=== PATIENT | female | born 1970 | race Caucasian/White ===

== ENCOUNTER 2023-02-08 09:51 | Outpatient (OUT) | payer MEDICARE, MEDICAID, SELFPAY ==
[2023-02-08 10:22] LABS: Basophils Absolute Auto 0.1 10^3/uL (0.0-0.1); Basophils Percent Auto 0.7 % (0.2-2.0); Eosinophils Absolute Auto 0.2 10^3/uL (0.0-0.7); Eosinophils Percent Auto 1.9 % (0.9-7.0); Hematocrit 53.9 % (36.0-48.0); Hemoglobin 18.3 g/dL (12.0-16.0); Immature Granulocytes Abs Auto 0.06 10^3/uL (0.00-0.03); Immature Granulocytes Pct Auto 0.5 % (0.0-0.5); Lymphocytes Absolute Auto 3.4 10^3/uL (1.2-3.8); Lymphocytes Percent Auto 28.3 % (20.5-60.0); Mean Corpuscular Hemoglobin 30.2 pg (26.7-34.0); Mean Corpuscular Volume 89.1 fL (81.0-99.0); Mean Platelet Volume 9.3 fL (9.5-13.5); Monocytes Absolute Auto 0.5 10^3/uL (0.3-0.8); Monocytes Percent Auto 3.9 % (1.7-12.0); Neutrophils Absolute Auto 7.9 10^3/uL (1.4-6.5); Neutrophils Percent Auto 64.7 % (43.0-75.0); Platelet Count 246 10^3/uL (150-450); Red Blood Count 6.05 10^6/uL (4.20-5.40); Red Cell Distribution Width 13.7 % (11.0-15.0); White Blood Count 12.2 10^3/uL (4.0-11.0)
[2023-02-08 10:24] LABS: Estimated Average Glucose 134 mg/dL; Glycohemoglobin A1C 6.3 % (4.5-6.2)
[2023-02-08 10:31] LABS: Bilirubin Urine NEGATIVE (NEGATIVE); Blood Urine TRACE-I (NEGATIVE); Clarity Urine CLEAR (CLEAR); Color Urine LT. YELLOW (YELLOW); Glucose Urine UA NEGATIVE (NEGATIVE); Ketones Urine NEGATIVE (NEGATIVE); Leukocyte Esterase Urine NEGATIVE (NEGATIVE); Nitrite Urine NEGATIVE (NEGATIVE); Protein Urine NEGATIVE (NEG/TRACE); Specific Gravity Urine 1.015 (1.005-1.025); Urobilinogen Urine 0.2 EU/dL (0.2-1.0); pH Urine 5.5 (5.0-9.0)
[2023-02-08 10:43] LABS: Bacteria Urine NONE SEEN #/HPF (NONE SEEN); Mucus Urine NONE SEEN (NONE SEEN); RBC Urine 0-2 #/HPF (0-2); Squamous Epithelial Cell Urine FEW #/LPF (NONE/RARE); WBC Urine NONE SEEN #/HPF (NONE SEEN)
[2023-02-08 11:03] LABS: Alanine Aminotransferase 14 U/L (14-59); Albumin Level 3.7 g/dL (3.4-5.0); Alkaline Phosphatase 102 U/L (46-116); Anion Gap 15.9; Aspartate Amino Transferase 14 U/L (15-37); BUN Creatinine Ratio 18.4; Bilirubin Total 0.3 mg/dL (0.2-1.0); Calcium 8.8 mg/dL (8.5-10.1); Carbon Dioxide 23.8 mmol/L (21.0-32.0); Chloride 106 mmol/L (98-107); Cholesterol 159 mg/dL (<=200); Estimated GFR (African America >60 (>=60); Estimated GFR (Non-African Ame >60 (>=60); Globulin 3.7 g/dL; Glucose 139 mg/dL (74-106); HDL Cholesterol 40 mg/dL (40-60); Potassium 4.7 mmol/L (3.5-5.1); Sodium 141 mmol/L (136-145); Total Protein 7.4 g/dL (6.4-8.2); Triglycerides 100 mg/dL (<=150)
[2023-02-08 15:29] LABS: Microalbumin Urine Random <1.3 mg/dL (<=30.0)
== END 2023-02-08 09:52 | disposition home or self-care (01) ==
PROVIDERS: PCP Nurse Practitioner; Visit Provider Nurse Practitioner
DX: E11.9 Type 2 diabetes mellitus without complications (principal); E78.5 Hyperlipidemia, unspecified; I25.10 Atherosclerotic heart disease of native coronary artery without angina pectoris
CPT/HCPCS: 36415; 80053; 80061; 81001; 82043; 83036; 85025

== ENCOUNTER 2023-07-01 15:46 | Emergency (ER) | payer MEDICARE, MEDICAID, SELFPAY ==
[2023-07-01 15:59] VITALS: BP 123/83; PULSE 81; RESP 18; TEMP 36.6; O2SAT 97; BMI 31.0
--- NOTE | 2023-07-01 17:15 | CT_ITS ---
[address] [address] Patient Name: ADDIE BEACH MRN: [id number] date: 1970 Sex: F Assigned Patient Location: ER Current Patient Location: ER Accession/Order Number: [id number] Exam Date: 07/01/2023 17:48 Report Date: 07/01/2023 19:07 At the request of: KENTRELL HOGAN Procedure: CT abdomen pelvis w con EXAMINATION: CT abdomen pelvis w con HISTORY: llq pain llq pain COMPARISON: CT abdomen pelvis 09/09/2022. TECHNIQUE: Following uneventful administration of IV contrast, helical imaging of the abdomen and pelvis was performed. Multiplanar reformatted images are submitted. Dose reduction techniques were achieved by using: automated exposure control and/or adjustment of mA and /or kV according to patient size and/or use of iterative reconstruction technique. FINDINGS: ABDOMEN: LOWER CHEST:The imaged lung bases are clear. SOLID ORGANS: Spleen, adrenal glands, kidneys are within normal limits. No urinary tract calculi. No hydronephrosis. Liver is normal in morphology. The liver is enlarged, stable. Vessels are patent. No focal hepatic lesion. Pancreas, gallbladder and biliary ducts are all within normal limits. Prior cholecystectomy. BOWEL: The stomach, proximal small bowel and imaged colon are normal in course and caliber. No bowel wall thickening. MESENTERY AND RETROPERITONEUM: There is no free fluid, fluid collection or adenopathy.. Abdominal aorta and IVC are intact. Aortic caliber is normal.. ABDOMINAL WALL AND SOFT TISSUES: No acute abnormality. OSSEOUS STRUCTURES: No acute osseous abnormality. PELVIS: [] GENITOURINARY: BOWEL: Distal small bowel, rectosigmoid colon, appendix are intact. No bowel wall thickening. Short segment acute diverticulitis with inflammation and asymmetric colonic wall thickening along the left lateral sigmoid colon with adjacent inflammation of the sigmoid mesocolon extending over a length of 4.4 cm. MESENTERY: Peridiverticular inflammation within the left lateral sigmoid mesocolon. No adenopathy. No fluid collection.. VASCULATURE: Pelvic vasculature is patent. ABDOMINAL WALL AND SOFT TISSUES:No acute abnormality. OSSEOUS STRUCTURES: No acute osseous abnormality. CT/CT abdomen pelvis w con IMPRESSION: 1. Acute, nonperforated short segment sigmoid diverticula as with adjacent peridiverticular fluid. No fluid collection, abscess or perforation. 2. No other acute abdominal or pelvic inflammatory process. 3. Normal appendix. No adenopathy. 4. Stable hepatomegaly with normal hepatic morphology and density. Hepatic vessels are patent. No hepatic masses. . Electronically authenticated by: DEYANIRA FELDER Date: 07/01/2023 19:07
[2023-07-01 17:28] LABS: Hematocrit 57.2 % (36.0-48.0); Hemoglobin 18.9 g/dL (12.0-16.0); Mean Corpuscular Hemoglobin 29.4 pg (26.7-34.0); Mean Platelet Volume 9.8 fL (9.5-13.5); Platelet Count 242 10^3/uL (150-450); Red Blood Count 6.43 10^6/uL (4.20-5.40); Red Cell Distribution Width 14.3 % (11.0-15.0)
[2023-07-01 17:29] LABS: Bilirubin Urine NEGATIVE (NEGATIVE); Blood Urine TRACE-I (NEGATIVE); Clarity Urine CLEAR (CLEAR); Color Urine LT. YELLOW (YELLOW); Glucose Urine UA NEGATIVE (NEGATIVE); Ketones Urine NEGATIVE (NEGATIVE); Leukocyte Esterase Urine NEGATIVE (NEGATIVE); Nitrite Urine NEGATIVE (NEGATIVE); Protein Urine NEGATIVE (NEG/TRACE); Specific Gravity Urine <=1.005 (1.005-1.025); Urobilinogen Urine 0.2 EU/dL (0.2-1.0)
[2023-07-01] MEDS: 0.9 % SODIUM CHLORIDE 1,000 ML 999 ML IV (17:29)
[2023-07-01] MEDS: KETOROLAC TROMETHAMINE 30 MG/ML VIAL IVP (17:30)
[2023-07-01] MEDS: ONDANSETRON PF 4 MG/2 ML VIAL IV (17:30)
[2023-07-01 17:37] LABS: Bacteria Urine NONE SEEN #/HPF (NONE SEEN); Cast Seen? NONE SEEN #/LPF (NONE SEEN); Crystals Seen? None Seen #/HPF (None Seen); Mucus Urine NONE SEEN (NONE SEEN); RBC Urine NONE SEEN #/HPF (0-2); Squamous Epithelial Cell Urine NONE SEEN #/LPF (NONE/RARE); WBC Urine NONE SEEN #/HPF (NONE SEEN)
[2023-07-01 17:38] LABS: Segmented Neut Absolute Manual 11.05 10^3/uL (1.4-6.5)
[2023-07-01 17:39] LABS: Anisocytosis 1+; Atypical Lymphocytes Abs Man 1.53; Eosinophils Absolute Manual 0.17 10^3/uL (0.00-0.70); Monocytes Absolute Manual 0.85 10^3/uL (0.30-0.80)
[2023-07-01 18:01] LABS: Alanine Aminotransferase <6 U/L (14-59); Albumin Globulin Ratio 0.8; Albumin Level 3.2 g/dL (3.4-5.0); Alkaline Phosphatase 124 U/L (46-116); Anion Gap 14.1; Aspartate Amino Transferase 10 U/L (15-37); Bilirubin Total 0.3 mg/dL (0.2-1.0); Calcium 9.1 mg/dL (8.5-10.1); Carbon Dioxide 22.8 mmol/L (21.0-32.0); Chloride 106 mmol/L (98-107); Estimated GFR (African America >60 (>=60); Estimated GFR (Non-African Ame >60 (>=60); Globulin 3.8 g/dL; Glucose 145 mg/dL (74-106); Potassium 3.9 mmol/L (3.5-5.1); Sodium 139 mmol/L (136-145)
[2023-07-01] MEDS: CIPROFLOXACIN IN 5 % DEXTROSE 400 MG/200 ML PIGGYBACK 200 MG IV (18:32)
[2023-07-01 19:21] VITALS: BP 143/94; PULSE 62; RESP 16; TEMP 36.9; O2SAT 98
--- NOTE | 2023-07-01 19:23 | ED_ITS ---
HPI - Abdominal Pain General Chief Complaint: Abdominal Pain Stated Complaint: lower abdominal pain Time Seen by Provider: 07/01/23 17:14 Source: patient Mode of arrival: Wheelchair Limitations: no limitations History of Present Illness HPI narrative: 53-year-old female presents with chief complaint left lower quadrant abdominal pain. Patient states to three days ago she felt pain and pressure left lower quadrant with increased pain when she urinated. She states she's also had loose stools. She states similar symptoms in the past have led to diverticulitis. She states she's not had diverticulitis in greater than ten years. Patient denies any fevers. She has left lower quadrant tenderness to palpation. No rebound or guarding. Pertinent past history: Reports diverticulitis Related Data Previous Rx's Medication Instructions Recorded ciprofloxacin HCl 500 mg tablet 500 mg PO BID 10 days #20 tabs 07/01/23 metronidazole 500 mg tablet 500 mg PO BID 10 days #20 tabs 07/01/23 Allergies Allergy/AdvReac Type Severity Reaction Status Date / Time latex Allergy Unknown Verified 07/01/23 15:59 metformin Allergy Unknown Verified 07/01/23 15:59 Review of Systems ROS Narrative All Systems are negative except as noted/marked.All systems reviewed and otherwise negative PFSH PFSH Social History Smoking status: Current every day smoker Exam Narrative Exam Narrative: Nurses note and vital signs reviewed and patient is not hypoxic. General: The patient appears well and in no apparent distress. Patient is resting comfortably on cart. Skin: Warm, dry, no pallor noted. There is no rash noted. Head: Normocephalic, atraumatic Eye: Normal conjunctiva, no drainage, EOMI. PERRL Ears, Nose, Mouth, and Throat: oral mucosa is moist. Nares patent. Mouth without vesicles. Ear canals patent. Tm's without Erythema Cardiovascular: Regular Rate and Rhythm Respiratory: Patient is in no distress, no accessory muscle use, lungs are clear to auscultation, no wheezing, rales or rhonchi Back: non-tender, no CVA tenderness bilaterally to percussion. GI: Left lower quadrant tenderness to palpation , Normal bowel sounds,no masses appreciated. No rebound, guarding, or rigidity noted. Musculoskeletal: The patient has no evidence of calf tenderness, no pitting edema, symmetrical pulses noted bilaterally Constitutional Vital Signs, click to edit/add: Last Vital Signs Temp 98.4 F 12/29/23 19:21 Pulse 62 07/01/23 19:21 Resp 16 07/01/23 19:21 BP 143/94 H 07/01/23 19:21 Pulse Ox 98 07/01/23 19:21 O2 Del Method Room Air 07/01/23 19:21 Course Vital Signs Vital signs: Vital Signs Temperature 97.8 F 07/01/23 15:59 Pulse Rate 81 07/01/23 15:59 Respiratory Rate 18 07/01/23 15:59 Blood Pressure 123/83 07/01/23 15:59 Pulse Oximetry 97 07/01/23 15:59 Oxygen Delivery Method Room Air 07/01/23 15:59 Temperature 98.4 F 07/01/23 19:21 Pulse Rate 62 07/01/23 19:21 Respiratory Rate 16 07/01/23 19:21 Blood Pressure 143/94 H 07/01/23 19:21 Pulse Oximetry 98 07/01/23 19:21 Oxygen Delivery Method Room Air 07/01/23 19:21 MDM - Abdominal Pain Differential Diagnosis Differential diagnosis: Likely abdominal pain and diverticulitis Medical Records Attestation: I reviewed the patient's medical records. Medical records narrative: Patient presented here to the emergency room chief among the floor quadrant abdominal tenderness. Upon arrival to the emergency room IV was established patient was medicated with Zofran, Toradol and fluids. She had a known history o f diverticulitis in the past. CT scan of the abdomen and pelvis was ordered and performed. CBC BMP reviewed. Patient an elevated white cell count of seventeen thousand. Patient's pain was relieved with Toradol and nausea improved with Zofran. CT scan result a below is a shortened diverticulitis. No acute abscess. Patient was medicated with IV Cipro here in emergency room. She'll be discharged home with Cipro, Flagyl and [place] for pain. She will follow-up with primary care physician. Questions were answered results were reviewed. Patient verbalizes understanding agrees with plan of care Lab Data Attestation: I reviewed the patient's lab results. Labs: Lab Results 07/01/23 07/01/23 Range/Units 17:00 17:04 WBC 17.0 H (4.0-11.0) 10^3/uL RBC 6.43 H (4.20-5.40) 10^6/uL Hgb 18.9 H (12.0-16.0) g/dL Hct 57.2 H (36.0-48.0) % MCV 89.0 (81.0-99.0) fL MCH 29.4 (26.7-34.0) pg MCHC 33.0 (29.9-35.2) g/dL RDW 14.3 (11.0-15.0) % Plt Count 242 (150-450) 10^3/uL MPV 9.8 (9.5-13.5) fL Seg Neuts % (Manual) 65.0 Lymphocytes % (Manual) 20.0 L (20.5-60.0) % Atypical Lymphs % (Man) 9.0 % Monocytes % (Manual) 5.0 (1.7-12.0) % Eosinophils % (Manual) 1.0 (0.9-7.0) % Basophils % (Manual) 0.0 L (0.2-2.0) % Neutrophils # (Manual) 11.05 H (1.4-6.5) 10^3/uL Lymphocytes # (Manual) 3.40 (1.20-3.80) 10^3/uL Abs Atypical Lymphs Man 1.53 Monocytes # (Manual) 0.85 H (0.30-0.80) 10^3/uL Eosinophils # (Manual) 0.17 (0.00-0.70) 10^3/uL Basophils # (Manual) 0.00 (0.00-0.10) 10^3/uL Anisocytosis 1+ Sodium 139 (136-145) mmol/L Potassium 3.9 (3.5-5.1) mmol/L Chloride 106 (98-107) mmol/L Carbon Dioxide 22.8 (21.0-32.0) mmol/L Anion Gap 14.1 BUN 7.0 (7.0-18.0) mg/dL Creatinine 0.78 (0.55-1.02) mg/dL Est GFR ( Amer) >60 (>=60) Est GFR (Non-Af Amer) >60 (>=60) BUN/Creatinine Ratio 9.0 Glucose 145 H (74-106) mg/dL Calcium 9.1 (8.5-10.1) mg/dL Total Bilirubin 0.3 (0.2-1.0) mg/dL AST 10 L (15-37) U/L ALT <6 L (14-59) U/L Alkaline Phosphatase 124 H (46-116) U/L Total Protein 7.0 (6.4-8.2) g/dL Albumin 3.2 L (3.4-5.0) g/dL Globulin 3.8 g/dL Albumin/Globulin Ratio 0.8 Lipase 38.0 (16.0-77.0) U/L Urine Color Lt. yellow (YELLOW) Urine Clarity Clear (CLEAR) Urine pH 6.0 (5.0-9.0) Ur Specific [place] <=1.005 A (1.005-1.025) Urine Protein Negative (NEG/TRACE) mg/dL Urine Glucose (UA) Negative (NEGATIVE) mg/dL Urine Ketones Negative (NEGATIVE) mg/dL Urine Occult Blood Trace-i (NEGATIVE) Urine Nitrite Negative (NEGATIVE) Urine Bilirubin Negative (NEGATIVE) Urine Urobilinogen 0.2 (0.2-1.0) EU/dL Ur Leukocyte Esterase Negative (NEGATIVE) Urine RBC None seen (0-2) #/HPF Urine WBC None seen (NONE SEEN) #/HPF Ur Squamous Epith Cells None seen (NONE/RARE) #/LPF Urine Crystals None seen (None Seen) #/HPF Urine Bacteria None seen (NONE SEEN) #/HPF Urine Casts None seen (NONE SEEN) #/LPF Urine Mucus None seen (NONE SEEN) Imaging Data CT scan - abdomen: Attestation: I have reviewed the pertinent imaging results. Radiologist's impression: FINDINGS: ABDOMEN: LOWER CHEST:The imaged lung bases are clear. SOLID ORGANS: Spleen, adrenal glands, kidneys are within normal limits. No urinary tract calculi. No hydronephrosis. Liver is normal in morphology. The liver is enlarged, stable. Vessels are patent. No focal hepatic lesion. Pancreas, gallbladder and biliary ducts are all within normal limits. Prior cholecystectomy. BOWEL: The stomach, proximal small bowel and imaged colon are normal in course and caliber. No bowel wall thickening. MESENTERY AND RETROPERITONEUM: There is no free fluid, fluid collection or adenopathy.. Abdominal aorta and IVC are intact. Aortic caliber is normal.. ABDOMINAL WALL AND SOFT TISSUES: No acute abnormality. OSSEOUS STRUCTURES: No acute osseous abnormality. PELVIS: [] GENITOURINARY: BOWEL: Distal small bowel, rectosigmoid colon, appendix are intact. No bowel wall thickening. Short segment acute diverticulitis with inflammation and asymmetric colonic wall thickening along the left lateral sigmoid colon with adjacent inflammation of the sigmoid mesocolon extending over a length of 4.4 cm. MESENTERY: Peridiverticular inflammation within the left lateral sigmoid mesocolon. No adenopathy. No fluid collection.. VASCULATURE: Pelvic vasculature is patent. ABDOMINAL WALL AND SOFT TISSUES:No acute abnormality. OSSEOUS STRUCTURES: No acute osseous abnormality. IMPRESSION: 1. Acute, nonperforated short segment sigmoid diverticula as with adjacent peridiverticular fluid. No fluid collection, abscess or perforation. 2. No other acute abdominal or pelvic inflammatory process. 3. Normal appendix. No adenopathy. 4. Stable hepatomegaly with normal hepatic morphology and density. Hepatic vessels are patent. No hepatic masses. . Electronically authenticated by: DEYANIRA FELDER Date: 07/01/2023 19:07 Discharge Plan Discharge Chief Complaint: Abdominal Pain Clinical Impression: Diverticulitis Patient Disposition: Home, Self-Care Time of Disposition Decision: 19:21 Condition: Good Prescriptions / Home Meds: New ciprofloxacin HCl 500 mg tablet 500 mg PO BID 10 Days Qty: 20 0RF metronidazole 500 mg tablet 500 mg PO BID 10 Days Qty: 20 0RF Instructions: Diverticulitis (ED), Diverticulitis Diet (ED) Stand Alone Forms: Portal Instructions Referrals: Lacy Alberto NP [Primary Care Provider] - 1 week
== END 2023-07-01 19:42 | disposition home or self-care (01) ==
PROVIDERS: Physician Assistant; Emergency Provider Emergency Medicine Emergency Medical Services; PCP Nurse Practitioner
DX: K57.32 Diverticulitis of large intestine without perforation or abscess without bleeding (principal); F17.200 Nicotine dependence, unspecified, uncomplicated; Z87.898 Personal history of other specified conditions
CPT/HCPCS: 36415; 74177; 80053; 81001; 83690; 85007; 85027; 96365; 96375; 99285; Q9967

== ENCOUNTER 2023-11-18 08:22 | Outpatient (OUT) | payer MEDICARE, MEDICAID, SELFPAY ==
--- OUTSIDE RECORDS SUMMARY | 2023-11-18 08:34 | XMS_ITS | CCD ---
Author Organization [facility] Care Team Providers Care Paste Mixing Supervisor Name Role Phone HUI AMARAL Attending Unavailable SUMAYA, ESSENCE VINCENT Primary Care Unavailabl e NADERER, ESSENCE VINCENT Consulting Unavailabl e HUI AMARAL Attending Unavailable NADERER, ESSENCE VINCENT Primary Care Unavailabl e AICHHOLZ, BOOT REPAIRER JUAN Admitting Unavailable AICHHOLZ, BOOT REPAIRER JUAN Attending Unavailable AICHHOLZ, BOOT REPAIRER JUAN Primary Care Unavailable DR NAHOMY BUCHANAN V Consulting Unavailable AICHHOLZ, UVALDO JUAN Consulting Unavailable AICHHOLZ, BOOT REPAIRER JUAN Admitting Unavailable AICHHOLZ, BOOT REPAIRER JUAN Attending Unavailable AICHHOLZ, BOOT REPAIRER JUAN Primary Care Unavailable AICHHOLZ, BOOT REPAIRER JUAN Consulting Unavailable AICHHOLZ, BOOT REPAIRER JUAN Admitting Unavailable AICHHOLZ, BOOT REPAIRER JUAN Attending Unavailable AICHHOLZ, BOOT REPAIRER JUAN Primary Care Unavailable AICHHOLZ, BOOT REPAIRER JUAN Primary Care Unavailable SUSANNE, ERIC Admitting Unavailable ERIC SKINNER Attending Unavailable DRAGAN GONZALES Consulting Unavailabl e ERIC SKINNER Consulting Unavailable CASSIE BACK Consulting Unavailable Allergies Allergy Classification Reported Allergen(s) Allergy Type Date of Onset Reaction(s) Facility (2 sources) Latex; Translations: [Unknown] Propensity to adverse reactions to drug (disorder) 5 [facility] Repository (1 source) metFORMIN; Translations: [metFORMIN] Drug Allergy [facility] Repository Problems Active Problems Problem Classification Problem Date Documented Date Episodic/Chronic Anxiety disorders (2 sources) Anxiety disorder, unspecified; Translations: [Post-traumatic stress disorder, unspecified] Onset: 09-14-19 Chronic Calculus of urinary tract (1 source) Calculus of ureter; Translations: [CALCULUS OF URETER] Onset: 09-14-19 Episodic Coronary atherosclerosis and other heart disease (1 source) Atherosclerotic heart disease of [place] coronary artery without angina pectoris; Translations: [ASHD [place] CA W/O ANGINA PECTORIS] Onset: 12-19-19 Chronic Diabetes mellitus without complication (5 sources) Type 2 diabetes mellitus without complications; Translations: [TYPE 2 DM WITHOUT COMPLICATIONS] Onset: 12-17-19 Chronic Disorders of lipid metabolism (1 source) Pure hypercholesterolemia, unspecified; Translations: [PURE HYPERCHOLESTEROLEMIA UNSPEC] Onset: 09-14-19 Chronic Disorders usually diagnosed in infancy, childhood, or adolescence (1 source) Other specified behavioral and emotional disorders with onset usually occurring in childhood and adolescence; Translations: [OTH BEHAVR EMOTIONAL D/O CHILD ADOL] Onset: 09-14-19 Chronic Esophageal disorders (1 source) Gastro-esophageal reflux disease without esophagitis; Translations: [GERD WITHOUT ESOPHAGITIS] Onset: 09-14-19 Chronic Genitourinary symptoms and ill-defined conditions (4 sources) Hematuria, unspecified; Translations: [HEMATURIA UNSPECIFIED] Onset: 09-10-19 Episodic Mood disorders (1 source) Mood disorders; Translations: [DEPRESSION UNSPECIFIED] Onset: 09-14-19 Other aftercare (1 source) 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; Translations: [DETENTION CURRENT USE OF ASPIRIN] Onset: 09-14-19 Episodic Other aftercare (1 source) Other retirement (current) drug therapy; Translations: [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] Onset: 09-14-19 Episodic Other circulatory disease (1 source) Personal history of transient ischemic attack (TIA), and cerebral infarction without residual deficits; Translations: [PERS HX TIA AND CI NO RESID DEFICIT] Onset: 09-14-19 Episodic Other gastrointestinal disorders (1 source) Irritable bowel syndrome without diarrhea; Translations: [IRRITABLE BOWEL SYND W/O DIARRHEA] Onset: 09-14-19 Chronic Other hereditary and degenerative nervous system conditions (1 source) Restless legs syndrome; Translations: [RESTLESS LEGS SYNDROME] Onset: 09-14-19 Chronic Other screening for suspected conditions (not mental disorders or infectious disease) (4 sources) Encounter for screening mammogram for malignant neoplasm of breast; Translations: [ENC SCR MAMMO MALIG NEOPLASM BREAST] Onset: 08-31-19 Episodic Residual codes; unclassified (1 source) Acquired absence of other specified parts of digestive tract; Translations: [ACQ ABSENCE OTH PART DIGESTV TRACT] Onset: 09-14-19 Episodic Residual codes; unclassified (1 source) Acquired absence of both cervix and uterus; Translations: [ACQUIRED ABSENCE BOTH CERVIX AND UTERUS] Onset: 09-14-19 Episodic Residual codes; unclassified (1 source) Acquired absence of ovaries, unilateral; Translations: [ACQUIRED ABSENCE OVARIES UNILATERAL] Onset: 09-14-19 Episodic Residual codes; unclassified (1 source) Family history of malignant neoplasm of trachea, bronchus and lung; Translations: [FAM HX MALIG NEOPLSM TRACH BRON LNG] Onset: 09-06-19 Episodic Substance-related disorders (1 source) Nicotine dependence, cigarettes, uncomplicated; Translations: [NICOTINE DEPEND CIGARETTES UNCOMP] Onset: 09-14-19 Chronic Past or Other Problems Problem Classification Problem Date Documented Da te Episodic/Chronic Other aftercare (1 source) extermination supervisor (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 Shakira Bahena ATYPICAL LYMPH % 8 % Normal [facility] Comment on above: Performed By: #### C EMANI #### [facility] [address] [place] [address] Dr. Shakira Bahena BAND # 0.0 103/ul Normal 0.0-0.3 [facility] Comment on above: Performed By: #### C EMANI #### [facility] [address] [address] [address] Shakira Bahena BAND % 0 % Normal 0-5 [facility] Comment on above: Performed By: #### C EMANI #### [facility] [address] [place] [address] Dr. Shakira Bahena BASOM # 0.00 103/ul Normal 0.00-0.10 [facility] Comment on above: Performed By: #### C BCMAN #### [facility] [address] [address] [address] Shakira Bahena BASOM % 0.0 % Critically low 0.2-2.0 [facility] Comment on above: Performed By: #### C BCMAN #### [facility] [address] [address] [address] Shakira Bahena BLAST # Normal [facility] Comment on above: Performed By: #### C BCMAN #### [facility] [address] [place] [address] Dr. Shakira Bahena BLAST % Normal [facility] Comment on above: Performed By: #### C BCANGELA #### [facility] [address] [place] [address] Dr. Shakira Bahena CORRECTED WBC Normal 4.0-11.0 [facility] Comment on above: Performed By: #### C BCANGELA #### [facility] [address] [place] [address] Dr. Shakira Bahena EOS # 0.56 103/ul Normal 0.00-0.70 [facility] Comment on above: Performed By: #### C BCANGELA #### [facility] [address] [place] [address] Dr. Shakira Bahena EOS% 3.0 % Normal 0.9-7.0 [facility] Comment on above: Performed By: #### C BCANGELA #### [facility] [address] [place] [address] Dr. Shakira Bahena HCT 50.8 % Critically high 36.0-48.0 [facility] Comment on above: Performed By: #### C BCANGELA #### [facility] [address] [place] [address] Dr. Shakira Bahena HGB 17.7 g/dl Critically high 12.0-16.0 [facility] Comment on above: Performed By: #### C BCANGELA #### [facility] [address] [place] [address] Dr. Shakira Bahena LYMPHM # 1.30 103/ul Normal 1.20-3.80 [facility] Comment on above: Performed By: #### C EMANI #### [facility] [address] [place] [address] Dr. Shakira Bahena LYMPHM% 7.0 % Critically low 20.5-60.0 [facility] Comment on above: Performed By: #### C EMANI #### [facility] [address] [place] [address] Dr. Shakira Bahena MCH 30.7 pg Normal 26.7-34.0 [facility] Comment on above: Performed By: #### C EMANI #### [facility] [address] [place] [address] Dr. Sahkira Bahena MCHC 34.8 g/dl Normal 29.9-35.2 [facility] Comment on above: Performed By: #### C EMANI #### [facility] [address] [place] [address] Dr. Shakira Bahena MCV 88.0 fL Normal 81.0-99.0 [facility] Comment on above: Performed By: #### C EMANI #### [facility] [address] [place] [address] Dr. Shakira Bahena METAMYELOCYTE # Normal [facility] Comment on above: Performed By: #### C EMANI #### [facility] [address] [place] [address] Dr. Shakira Bahena METAMYELOCYTE % Normal [facility] Comment on above: Performed By: #### C EMANI #### [facility] [address] [place] [address] Dr. Shakira Bahena MONOM# 0.37 103/ul Normal 0.30-0.80 [facility] Comment on above: Performed By: #### C EMANI #### [facility] [address] [place] [address] Dr. Shakira Bahena MONOM% 2.0 % Normal 1.7-12.0 [facility] Comment on above: Performed By: #### C EMANI #### [facility] [address] [place] [address] Dr. Shakira Bahena MPV 10.1 fL Normal 9.5-13.5 [facility] Comment on above: Performed By: #### C EMANI #### [facility] [address] [address] [address] Shakira Bahena MYELOCYTE # Normal [facility] Comment on above: Performed By: #### C EMANI #### [facility] [address] [address] [address] Shakira Bahena MYELOCYTE % Normal [facility] Comment on above: Performed By: #### C EMANI #### [facility] [address] [address] [address] Shakira Bahena NRBC Normal [facility] Comment on above: Performed By: #### C EMANI #### [facility] [address] [address] [address] Shakira Bahena PLT 235 103/ul Normal 150-450 [facility] Comment on above: Performed By: #### C EMANI #### [facility] [address] [address] [address] Shakira Bahena RBC 5.77 106/ul Critically high 4.20-5.40 [facility] Comment on above: Performed By: #### C EMANI #### [facility] [address] [place] [address] Dr. Shakira Bahena RDW 14.5 % Normal 11.0-15.0 [facility] Comment on above: Performed By: #### C EMANI #### [facility] [address] [address] [address] Shakira Bahena SEG # 14.88 103/ul Critically high 1.40-6.50 [facility] Comment on above: Performed By: #### C EMANI #### [facility] [address] [address] [address] Shakira Bahena SEG % 80.0 % Critically high 43.0-75.0 [facility] Comment on above: Performed By: #### C EMANI #### [facility] [address] [place] [address] Dr. Shakira Bahena WBC 18.6 103/ul Critically high 4.0-11.0 [facility] Comment on above: Performed By: #### C BCMAN #### [facility] [id number] Shakira Bahena CT ABD/PELVIS WO CONon 09-09 CT ABD/PELVIS WO CON EXAMINATION: CT ABDOMEN AND PELVIS WITHOUT IV CONTRAST CLINICAL HISTORY: Flank pain TECHNIQUE: Non-IV contrast imaging of the abdomen and pelvis was performed using standard technique, scanning from just above the dome of the diaphragm to the symphysis pubis. Unenhanced imaging is limited for the evaluation of some intra-abdominal and pelvic pathology. All CT scans at this facility use dose modulation, iterative reconstruction, and/or weight based dosing when appropriate to reduce radiation dose to as low as reasonably achievable. Contrast: IV: None COMPARISON: Right upper quadrant ultrasound 07/10/2018, CT abdomen and pelvis 03/21/2015. RESULT: Abdomen / Pelvis: Liver: Unremarkable. Biliary: S/p cholecystectomy. Spleen: No splenomegaly. Pancreas: Unremarkable. Adrenals: No adrenal mass or significant thickening. Kidneys: 4 mm proximal left ureteral obstructing calculus (series 4 image 69, series 6 image 44), with mild hydronephrosis. Additional 4 mm left inferior pole nonobstructing calculus. No right renal calculus. GI Tract: No bowel dilation. Normal appendix. There is diverticulosis. No changes of diverticulitis. Large amount of colonic stool. Lymph Nodes: No lymphadenopathy. Mesentery/peritoneum: No ascites. Retroperitoneum: No mass. Vasculature: Atherosclerotic vascular disease without aneurysm. Pelvis: No mass or ascites. Urinary bladder is unremarkable. Bones/Soft Tissues: Degenerative changes of the lumbar spine. Lower thorax: Unremarkable. IMPRESSION: 4 mm proximal left obstructing calculus, with mild hydronephrosis and additional 4 mm left inferior pole nonobstructing calculus. Electronically authenticated by: CASSIE BACK Date: 2022-09-09 21:39 Normal [facility] URINE PROFILEon 3 Bilirubin Ql (U) Negative Normal NEGATIVE [facility] Comment on above: Performed By: #### U MICRO, ERUR #### [facility] [address] [address] [address] Shakira Bahena Clarity (U) CLEAR Normal CLEAR [facility] Comment on above: Performed By: #### U MICRO, ERUR #### [facility] [address] [address] [address] Shakira Bahena Color (U) RED Abnormal YELLOW [facility] Comment on above: Performed By: #### U MICRO, ERUR #### [facility] [address] [place] [address] Dr. Shakira Bahena ERUAHD A micrscopic examina tion will be performed if indicated. Normal [facility] Comment on above: Performed By: #### U MICRO, ERUR #### [facility] [address] [place] [address] Dr. Shakira Bahena Glucose Ql (U) Negative Normal NEGATIVE [facility] Comment on above: Performed By: #### U MICRO, ERUR #### [facility] [address] [place] [address] Dr. Shakira Bahena Hemoglobin Ql (U) LARGE Abnormal NEGATIVE [facility] Comment on above: Performed By: #### U MICRO, ERUR #### [facility] [address] [place] [address] Dr. Shakira Bahena Ketones Ql (U) Negative Normal NEGATIVE [facility] Comment on above: Performed By: #### U MICRO, ERUR #### [facility] [address] [place] [address] Dr. Shakira Bahena LEUKOCYTES TRACE Abnormal NEGATIVE [facility] Comment on above: Performed By: #### U MICRO, ERUR #### [facility] [address] [place] [address] Dr. Shakira Bahena Nitrite Ql (U) Negative Normal NEGATIVE [facility] Comment on above: Performed By: #### U MICRO, ERUR #### [facility] [address] [place] [address] Dr. Shakira Bahena pH (U) 5.5 [pH] Normal 5-9 [facility] Comment on above: Performed By: #### U MICRO, ERUR #### [facility] [address] [place] [address] Dr. Shakira Bahena Protein (U) [Mass/Vol] 100 mg/dL Abnormal NEGATIVE/ TRACE [facility] Comment on above: Performed By: #### U MICRO, ERUR #### [facility] [address] [place] [address] Dr. Shakira Bahena SPEC GRAVITY 1.010 Normal 1.005-<=1.02 5 [facility] Comment on above: Performed By: #### U MICRO, ERUR #### [facility] [address] [place] [address] Dr. Shakira Bahena UR MICRO IND INDICATED Normal [facility] Comment on above: Performed By: #### U MICRO, ERUR #### [facility] [address] [place] [address] Dr. Shakira Bahena Urobilinogen Qn (U) 1.0 {Navin'U}/dL Normal 0.2 - 1. 0 [facility] Comment on above: Performed By: #### U MICRO, ERUR #### [facility] [address] [place] [address] Dr. Shakira Bahena LACTATE/LACTIC ACIDon 2022 Lactate [Moles/Vol] 0.7 mmol/L Normal 0.4-2.0 [facility] Comment on above: Performed By: #### L ACT #### [facility] [address] [place] [address] Dr. Shakira Bahena PROF 14(COMP METB)on 023 Albumin [Mass/Vol] 3.5 g/dL Normal 3.4-5.0 [facility] Comment on above: Performed By: #### P T, PTT #### [facility] [address] [place] [address] Dr. Shakira Bahena Albumin/Globulin [Mass ratio] 1.1 {ratio} Normal [facility] Comment on above: Performed By: #### P T, PTT #### [facility] [address] [place] [address] Dr. Shakira Bahena ALP [Catalytic activity/Vol] 104 U/L Normal 46-116 [facility] Comment on above: Performed By: #### P T, PTT #### [facility] [address] [address] [address] Shakira Bahena ALT [Catalytic activity/Vol] 20 U/L Normal 14-59 [facility] Comment on above: Performed By: #### P T, PTT #### [facility] [address] [address] [address] Shakira Bahena Anion gap [Moles/Vol] 9.9 mmol/L Normal [facility] Comment on above: Performed By: #### P T, PTT #### [facility] [address] [address] [address] Shakira Bahena AST [Catalytic activity/Vol] 24 U/L Normal 15-37 [facility] Comment on above: Performed By: #### P T, PTT #### [facility] [address] [address] [address] Shakira Bahena Bilirubin [Mass/Vol] 0.4 mg/dL Normal 0.2-1.0 [facility] Comment on above: Performed By: #### P T, PTT #### [facility] [address] [address] [address] Shakira Bahena Calcium [Mass/Vol] 8.6 mg/dL Normal 8.5-10.1 [facility] Comment on above: Performed By: #### P T, PTT #### [facility] [address] [address] [address] Shakira Bahena Chloride [Moles/Vol] 106 mmol/L Normal 98-107 [facility] Comment on above: Performed By: #### P T, PTT #### [facility] [address] [address] [address] Shakira Bahena CO2 [Moles/Vol] 26.3 mmol/L Normal 21.0-32.0 [facility] Comment on above: Performed By: #### P T, PTT #### [facility] [address] [address] [address] Shakira Bahena Creatinine [Mass/Vol] 0.60 mg/dL Normal 0.55-1.02 [facility] Comment on above: Performed By: #### P T, PTT #### [facility] [address] [address] [address] Shakira Bahena EGFR-AF SWISS >60 Normal >=60 [facility] Comment on above: Performed By: #### P T, PTT #### [facility] [address] [address] [address] Shakira Bahena EGFR-NON AF SWISS >60 Normal >=60 [facility] Comment on above: Performed By: #### P T, PTT #### [facility] [address] [address] [address] Shakira Bahena Globulin (S) [Mass/Vol] 3.2 g/dL Normal [facility] Comment on above: Performed By: #### P T, PTT #### [facility] [address] [place] [address] Dr. Shakira Bahena Glucose [Mass/Vol] 105 mg/dL Normal 74-106 [facility] Comment on above: Performed By: #### P T, PTT #### [facility] [address] [address] [address] Shakira Bahena Potassium [Moles/Vol] 4.2 mmol/L Normal 3.5-5.1 [facility] Comment on above: Performed By: #### P T, PTT #### [facility] [address] [place] [address] Dr. Shakira Bahena Protein [Mass/Vol] 6.7 g/dL Normal 6.4-8.2 [facility] Comment on above: Performed By: #### P T, PTT #### [facility] [address] [address] [address] Shakira Bahena Sodium [Moles/Vol] 138 mmol/L Normal 136-145 [facility] Comment on above: Performed By: #### P T, PTT #### [facility] [address] [address] [address] Shakira Bahena Urea nitrogen [Mass/Vol] 11.0 mg/dL Normal 7.0-18.0 [facility] Comment on above: Performed By: #### P T, PTT #### [facility] [address] [place] [address] Dr. Shakira Bahena Urea nitrogen/Creatinine [Mass ratio] 18.3 mg/mg Normal [facility] Comment on above: Performed By: #### P T, PTT #### [facility] [address] [place] [address] Dr. Shakira Bahena PROTIMEon 09-09-2022 INR Coag (PPP) [Relative time] 0.93 {INR} Normal [facility] Comment on above: Performed By: #### P T, PTT #### [facility] [address] [place] [address] Dr. Shakira Bahena INR GUIDELINES SEE BELOW Normal [facility] Comment on above: Result Comment: SHANA RED INR: 2.0 - 3.0 CONDITIONS NOT LISTED BELOW 2.5 - 3.5 FOR PROSTHETIC HEART VALVE REPLACEMENT 2.5 - 3.5 RECURRENT THROMBOSIS Performed By: #### P T, PTT #### [facility] [address] [place] [address] Dr. Shakira Bahena PT Coag (PPP) [Time] 9.9 s Normal 9.0-11.6 [facility] Comment on above: Performed By: #### P T, PTT #### [facility] [address] [place] [address] Dr. Shakira Bahena PTTon 09-09-2022 aPTT Coag (Bld) [Time] 28.0 s Normal 22.3-36.2 [facility] Comment on above: Performed By: #### P T, PTT #### [facility] [address] [place] [address] Dr. Shakira Bahena URINE MICROSCOPIC ONLYon BACTERIA NONE SEEN Normal NONE SEEN [facility] Comment on above: Performed By: #### U MICRO, ERUR #### [facility] [address] [place] [address] Dr. Shakira Bahena Bacteria identified Cx Nom (U) NOT INDICATED Normal [facility] Comment on above: Performed By: #### U MICRO, ERUR #### [facility] [address] [place] [address] Dr. Shakira Bahena CAST NONE SEEN Normal NONE SEEN [facility] Comment on above: Performed By: #### U MICRO, ERUR #### [facility] [address] [place] [address] Dr. Shakira Bahena Crystals LM Nom (Urine sed) NONE SEEN Normal NONE SEEN [facility] Comment on above: Performed By: #### U MICRO, ERUR #### [facility] [address] [place] [address] Dr. Shakira Bahena Epithelial cells LM Ql (Urine sed) FEW Abnormal NONE SEEN /RARE [facility] Comment on above: Performed By: #### U MICRO, ERUR #### [facility] [address] [place] [address] Dr. Shakira Bahena MUCOUS NONE SEEN Normal NONE SEEN [facility] Comment on above: Performed By: #### U MICRO, ERUR #### [facility] [address] [place] [address] Dr. Shakira Bahena RBC (U) [#/Vol] /uL Abnormal 0-[address] [facility] Comment on above: Performed By: #### U MICRO, ERUR #### [facility] [address] [place] [address] Dr. Shakira Bahena WBC 2-5 Abnormal NONE SEEN [facility] Comment on above: Performed By: #### U MICRO, ERUR #### [facility] [address] [place] [address] Dr. Shakira Bahena MG MAMM SCREEN 3D ERLINDA CADon 08-31-2022 MG MAMM SCREEN 3D ERLINDA CAD Patient: ESMER BEACH Exam Date: 08/31/2022 : 1970 Gender:F Ordering : UVALDO MARTINS CNP Admission #: [id number] Family : Order #: [id number] CLICK HERE TO VIEW EXAM RADIOLOGY REPORT PROCEDURE: MAMMOGRAM SCREENING 3D BILATERAL CAD COMPARISON: MG MAMM ERLINDA DIAG W CAD, 06/15/2019. MG MAMM SCREEN 3D ERLINDA CAD, 04/30/2021. INDICATIONS: Screening mammography Calculator Name NCI Breast Cancer Risk Assessment Tool 5 Year Breast Cancer Risk 1.10% Lifetime Breast Cancer Risk 8.20% Personal Breast Cancer No Personal Ovarian Cancer No Treatments None Family Cancers Mother with lung cancer at age 66. LOCATION: [facility] BREAST COMPOSITION: Scattered areas fibroglandular density. FINDINGS: DIAGNOSTIC CATEGORY 2--BENIGN FINDING. NO CHANGE FROM COMPARISON. Scattered benign-appearing calcifications are present. Scattered benign-appearing lymph nodes are present. RIGHT BREAST: No significant suspicious finding. LEFT BREAST: No significant suspicious finding. RECOMMENDATIONS: ROUTINE MAMMOGRAM AND CLINICAL EVALUATION IN 12 MONTHS. PLEASE NOTE: A NORMAL MAMMOGRAM DOES NOT EXCLUDE THE POSSIBILITY OF BREAST CANCER. A CLINICALLY SUSPICIOUS PALPABLE LUMP SHOULD BE BIOPSIED. Dictated by: Nahomy Buchanan MD on 08/31/2022 at 14:07 Approved by: Nahomy Buchanan MD on 08/31/2022 at 14:10 Normal [facility] CBC AUTO DIFFon 12-16-2021 BASO # 0.1 103/ul Normal 0.0-0.1 [facility] Comment on above: Performed By: #### C BC #### [facility] [address] [place] [address] Dr. Shakira Bahena Basophils/100 WBC (Bld) 0.6 % Normal 0.2-2.0 [facility] Comment on above: Performed By: #### C BC #### [facility] [address] [place] [address] Dr. Shakira Bahena EO # 0.3 103/ul Normal 0.0-0.7 [facility] Comment on above: Performed By: #### C BC #### [facility] [address] [place] [address] Dr. Shakira Bahena Eosinophils/100 WBC (Bld) 1.7 % Normal 0.9-7.0 [facility] Comment on above: Performed By: #### C BC #### [facility] [address] [place] [address] Dr. hSakira Bahena Erythrocyte distribution width (RBC) [Ratio] 15.6 % Critically high 11.0-15.0 [facility] Comment on above: Performed By: #### C BC #### [facility] [address] [place] [address] Dr. Shakira Bahena Hematocrit (Bld) [Volume fraction] 50.7 % Critically high 36.0-48.0 [facility] Comment on above: Performed By: #### C BC #### [facility] [address] [place] [address] Dr. Shakira Bahena Hemoglobin (Bld) [Mass/Vol] 16.0 g/dL Normal 12.0-16.0 [facility] Comment on above: Performed By: #### C BC #### [facility] [address] [place] [address] Dr. Shakira Bahena IG # 0.06 10e3/ul Critically high 0.00-0.03 [facility] Comment on above: Performed By: #### C BC #### [facility] [address] [place] [address] Dr. Shakira Bahena IG % 0.4 % Normal 0.0-0.5 [facility] Comment on above: Performed By: #### C BC #### [facility] [address] [place] [address] Dr. Shakira Bahena LYMPH # 3.7 103/ul Normal 1.2-3.8 [facility] Comment on above: Performed By: #### C BC #### [facility] [address] [place] [address] Dr. Shakira Bahena Lymphocytes/100 WBC (Bld) 23.9 % Normal 20.5-60.0 [facility] Comment on above: Performed By: #### C BC #### [facility] [address] [place] [address] Dr. Shakira Bahena MANUAL DIFF REQ NO Normal [facility] Comment on above: Performed By: #### C BC #### [facility] [address] [place] [address] Dr. Shakira Bahena MCH (RBC) [Entitic mass] 28.7 pg Normal 26.7-34.0 [facility] Comment on above: Performed By: #### C BC #### [facility] [address] [place] [address] Dr. Shakira Bahena MCHC (RBC) [Mass/Vol] 31.6 g/dL Normal 29.9-35.2 [facility] Comment on above: Performed By: #### C BC #### [facility] [address] [address] [address] Shakira Bahena MCV (RBC) [Entitic vol] 90.9 fL Normal 81.0-99.0 [facility] Comment on above: Performed By: #### C BC #### [facility] [address] [address] [address] Shakira Bahena MONO # 0.7 103/ul Normal 0.3-0.8 [facility] Comment on above: Performed By: #### C BC #### [facility] [address] [address] [address] Shakira Bahena Monocytes/100 WBC (Bld) 4.5 % Normal 1.7-12.0 [facility] Comment on above: Performed By: #### C BC #### [facility] [address] [place] [address] Dr. Shakira Bahena NEUT # 10.8 103/ul Critically high 1.4-6.5 [facility] Comment on above: Performed By: #### C BC #### [facility] [address] [place] [address] Dr. Shakira Bahena Neutrophils/100 WBC (Bld) 68.9 % Normal 43.0-75.0 [facility] Comment on above: Performed By: #### C BC #### [facility] [address] [place] [address] Dr. Shakira Bahena Platelet mean volume (Bld) [Entitic vol] 10.0 fL Normal 9.5-13.5 [facility] Comment on above: Performed By: #### C BC #### [facility] [address] [place] [address] Dr. Shakira Bahena PLT 309 103/ul Normal 150-450 [facility] Comment on above: Performed By: #### C BC #### [facility] [address] [place] [address] Dr. Shakira Bahena RBC 5.58 106/ul Critically high 4.20-5.40 [facility] Comment on above: Performed By: #### C BC #### [facility] [address] [address] [address] Shakira Bahena WBC 15.6 103/ul Critically high 4.0-11.0 [facility] Comment on above: Performed By: #### C BC #### [facility] [address] [place] [address] Dr. Shakira Bahena GLYCOHEMOGLOBIN A1Con 2021 ADA RECOMMENDATION SEE BELOW Normal [facility] Comment on above: Result Comment: ADA RECOMMENDED LIMIT 4.0 - 6.0 ADA THERAPEUTIC TARGET < 7.0 ACTION SUGGESTED > 7.0 Performed By: #### A 1C #### [facility] [address] [place] [address] Dr. Shakira Bahena Glucose [Mass/Vol] 120 mg/dL Normal [facility] Comment on above: Performed By: #### A 1C #### [facility] [address] [place] [address] Dr. Shakira Bahena HbA1c (Bld) [Mass fraction] 5.8 % Normal 4.5-6.2 [facility] Comment on above: Performed By: #### A 1C #### [facility] [address] [place] [address] Dr. Shakira Bahena LIPID PROFILEon 12-16-2021 CHOL-HDL RATIO NORM SEE BELOW Normal [facility] Comment on above: Result Comment: 3.3 - 4.4 LOW RISK 4.4 - 7.1 AVERAGE RISK 7.1 - 11.0 MODERATE RISK >11.0 HIGH RISK Performed By: #### P T, PTT #### [facility] [address] [place] [address] Dr. Shakira Bahena Cholesterol [Mass/Vol] 149 mg/dL Normal <=200 [facility] Comment on above: Performed By: #### P T, PTT #### [facility] [address] [place] [address] Dr. Shakira Bahena Cholesterol in HDL [Mass/Vol] 28 mg/dL Critically low 40-60 [facility] Comment on above: Performed By: #### P T, PTT #### [facility] [address] [address] [address] Shakira Bahena Cholesterol in LDL [Mass/Vol] 80.6 mg/dL Normal [facility] Comment on above: Performed By: #### P T, PTT #### [facility] [address] [address] [address] Shakira Bahena Cholesterol.total/C holesterol in HDL [Mass ratio] 5.3 {ratio} Normal [facility] Comment on above: Performed By: #### P T, PTT #### [facility] [address] [address] [address] Shakira Bahena HDL NORMAL > or = 60 mg/dl - LO W CARDIOVASCULAR RISK <40 mg/dl - HIGH CARDIOVASCULAR RISK Normal [facility] Comment on above: Performed By: #### P T, PTT #### [facility] [address] [place] [address] Dr. Shakira Bahena LDL CALC NORMAL SEE BELOW Normal [facility] Comment on above: Result Comment: <100 mg/dl OPTIMAL 100 - 129 mg/dl NEAR OR ABOVE OPTIMAL 130 - 159 mg/dl BORDERLINE HIGH 160 - 189 mg/dl HIGH >190 mg/dl VERY HIGH Performed By: #### P T, PTT #### [facility] [address] [address] [address] Shakira Bahena Triglyceride [Mass/Vol] 202 mg/dL Critically high <=150 [facility] Comment on above: Performed By: #### P T, PTT #### [facility] [address] [address] [address] Shakira Bahena VLDL CALC 40.4 mg/dL Normal [facility] Comment on above: Performed By: #### P T, PTT #### [facility] [address] [address] [address] Shakira Bahena MICROALBUMIN, RAND URon 12-02 mALB <1.3 Normal <=30.0 [facility] Comment on above: Performed By: #### P T, PTT #### [facility] [address] [place] [address] Dr. Shakira Bahena PROF 14(COMP METB)on 022 Albumin [Mass/Vol] 3.5 g/dL Normal 3.4-5.0 [facility] Comment on above: Performed By: #### P T, PTT #### [facility] [address] [place] [address] Dr. Shakira Bahena Albumin/Globulin [Mass ratio] 1.0 {ratio} Normal [facility] Comment on above: Performed By: #### P T, PTT #### [facility] [address] [address] [address] Shakira Bahena ALP [Catalytic activity/Vol] 103 U/L Normal 46-116 [facility] Comment on above: Performed By: #### P T, PTT #### [facility] [address] [place] [address] Dr. Shakira Bahena ALT [Catalytic activity/Vol] 19 U/L Normal 14-59 [facility] Comment on above: Performed By: #### P T, PTT #### [facility] [address] [place] [address] Dr. Shakira Bahena Anion gap [Moles/Vol] 14.8 mmol/L Normal [facility] Comment on above: Performed By: #### P T, PTT #### [facility] [address] [place] [address] Dr. Shakira Bahena AST [Catalytic activity/Vol] 10 U/L Critically low 15-37 [facility] Comment on above: Performed By: #### P T, PTT #### [facility] [address] [place] [address] Dr. Shakira Bahena Bilirubin [Mass/Vol] 0.3 mg/dL Normal 0.2-1.0 [facility] Comment on above: Performed By: #### P T, PTT #### [facility] [address] [place] [address] Dr. Shakira Bahena Calcium [Mass/Vol] 8.6 mg/dL Normal 8.5-10.1 [facility] Comment on above: Performed By: #### P T, PTT #### [facility] [address] [place] [address] Dr. Shakira Bahena Chloride [Moles/Vol] 107 mmol/L Normal 98-107 [facility] Comment on above: Performed By: #### P T, PTT #### [facility] [address] [address] [address] Shakira Bahena CO2 [Moles/Vol] 23.1 mmol/L Normal 21.0-32.0 [facility] Comment on above: Performed By: #### P T, PTT #### [facility] [address] [address] [address] Shakira Bahena Creatinine [Mass/Vol] 0.79 mg/dL Normal 0.55-1.02 [facility] Comment on above: Performed By: #### P T, PTT #### [facility] [address] [place] [address] Dr. Shakira Bahena EGFR-AF SWISS >60 Normal >=60 [facility] Comment on above: Performed By: #### P T, PTT #### [facility] [address] [address] [address] Shakira Bahena EGFR-NON AF SWISS >60 Normal >=60 [facility] Comment on above: Performed By: #### P T, PTT #### [facility] [address] [place] [address] Dr. Shakira Bahena Globulin (S) [Mass/Vol] 3.4 g/dL Normal [facility] Comment on above: Performed By: #### P T, PTT #### [facility] [address] [address] [address] Shakira Bahena Glucose [Mass/Vol] 157 mg/dL Critically high 74-106 [facility] Comment on above: Performed By: #### P T, PTT #### [facility] [address] [address] [address] Shakira Bahena Potassium [Moles/Vol] 3.9 mmol/L Normal 3.5-5.1 [facility] Comment on above: Performed By: #### P T, PTT #### [facility] [address] [place] [address] Dr. Shakira Bahena Protein [Mass/Vol] 6.9 g/dL Normal 6.4-8.2 [facility] Comment on above: Performed By: #### P T, PTT #### [facility] [address] [place] [address] Dr. Shakira Bahena Sodium [Moles/Vol] 141 mmol/L Normal 136-145 [facility] Comment on above: Performed By: #### P T, PTT #### [facility] [address] [place] [address] Dr. Shakira Bahena Urea nitrogen [Mass/Vol] 13.0 mg/dL Normal 7.0-18.0 [facility] Comment on above: Performed By: #### P T, PTT #### [facility] [address] [place] [address] Dr. Shakira Bahena Urea nitrogen/Creatinine [Mass ratio] 16.5 mg/mg Normal [facility] Comment on above: Performed By: #### P T, PTT #### [facility] [address] [place] [address] Dr. Shakira Bahena UA RANDOM W/MICROSCOPICon BACTERIA NONE SEEN Normal NONE SEEN [facility] Comment on above: Performed By: #### P T, PTT #### [facility] [address] [place] [address] Dr. Shakira Bahena Bilirubin Ql (U) Negative Normal NEGATIVE [facility] Comment on above: Performed By: #### P T, PTT #### [facility] [address] [place] [address] Dr. Shakira Bahena CAST NONE SEEN Normal NONE SEEN [facility] Comment on above: Performed By: #### P T, PTT #### [facility] [address] [place] [address] Dr. Shakira Bahena Clarity (U) CLEAR Normal CLEAR [facility] Comment on above: Performed By: #### P T, PTT #### [facility] [address] [place] [address] Dr. Shakira Bahena Color (U) LT. YELLOW Normal YELLOW [facility] Comment on above: Performed By: #### P T, PTT #### [facility] [address] [place] [address] Dr. Shakira Bahena Crystals LM Nom (Urine sed) NONE SEEN Normal NONE SEEN [facility] Comment on above: Performed By: #### P T, PTT #### [facility] [address] [place] [address] Dr. Shakira Bahena Epithelial cells LM Ql (Urine sed) RARE Normal NONE SEEN /RARE [facility] Comment on above: Performed By: #### P T, PTT #### [facility] [address] [place] [address] Dr. Shakira Bahena Glucose Ql (U) 100 mg/dl Abnormal NEGATIVE [facility] Comment on above: Performed By: #### P T, PTT #### [facility] [address] [place] [address] Dr. Shakira Bahena Hemoglobin Ql (U) Negative Normal NEGATIVE [facility] Comment on above: Performed By: #### P T, PTT #### [facility] [address] [place] [address] Dr. Shakira Bahena Ketones Ql (U) Negative Normal NEGATIVE [facility] Comment on above: Performed By: #### P T, PTT #### [facility] [address] [place] [address] Dr. Shakira Bahena LEUKOCYTES Negative Normal NEGATIVE [facility] Comment on above: Performed By: #### P T, PTT #### [facility] [address] [place] [address] Dr. Shakira Bahena MUCOUS NONE SEEN Normal NONE SEEN [facility] Comment on above: Performed By: #### P T, PTT #### [facility] [address] [place] [address] Dr. Shakira Bahena Nitrite Ql (U) Negative Normal NEGATIVE [facility] Comment on above: Performed By: #### P T, PTT #### [facility] [address] [place] [address] Dr. Shakira Bahena pH (U) 6.0 [pH] Normal 5-9 [facility] Comment on above: Performed By: #### P T, PTT #### [facility] [address] [place] [address] Dr. Shakira Bahena RBC 0-2 Normal 0-2 [facility] Comment on above: Performed By: #### P T, PTT #### [facility] [address] [place] [address] Dr. Shakira Bahena SPEC GRAVITY 1.010 Normal 1.005-<=1.02 5 [facility] Comment on above: Performed By: #### P T, PTT #### [facility] [address] [place] [address] Dr. Shakira Bahena UA PROTEIN Negative Normal NEGATIVE/ TRACE [facility] Comment on above: Performed By: #### P T, PTT #### [facility] [address] [place] [address] Dr. Shakira Bahena Urobilinogen Qn (U) 0.2 {Navin'U}/dL Normal 0.2 - 1. 0 [facility] Comment on above: Performed By: #### P T, PTT #### [facility] [address] [place] [address] Dr. Shakira Bahena WBC NONE SEEN Normal NONE SEEN [facility] Comment on above: Performed By: #### P T, PTT #### [facility] [address] [place] [address] Dr. Shakira Bahena LUMBAR SPINE 4 OR 5 [facility] LUMBAR SPINE 4 OR 5 [facility] Department of Radiology [address] [place] [id number] Patient Name: ESMER BEACH : 1970 Sex: F Age: Race: White Pt. Location: Patient Status: D Ordered Date: 01/18/2020 1:45:00 PM Completed Date: 01/18/2020 02:04 PM Requesting Provider: RICARDO JOSEPH Attending Provider: RICARDO JOSEPH Report Copy To: Signs & Symptoms: M48.061 Spinal stenosis, lumbar region without neurogenic ignacio I10 History: Muna Comments: Views (X-RAY, LUMBAR SPINE): AP, Lateral, L5-S1 Spot, Flexion, Extension , Weight Bearing?: Y Exam: LUMBAR SPINE 4 OR 5 VWS Addendum Begins Addendum: Lumbar spine AP, lateral, coned-down lateral lumbosacral spot film, lateral flexion and lateral extension views. 5 views. Electronically signed: Hui Mead. Addendum Ends LUMBAR SPINE 4 OR 5 VWS 01/18/2020 2:04 PM CLINICAL INDICATIONS: M48.061 Spinal stenosis, lumbar region without neurogenic ignacio I10 TECHNOLOGIST COMMENTS: Patient complains of lower back pain and coccyx pain for years. History of coccyx fracture over thirty years ago. QUESTION FOR RADIOLOGIST: Views (X-RAY, LUMBAR SPINE): AP, Lateral, L5-S1 Spot, Flexion, Extension , Weight Bearing?: Y PROTOCOL: AP,Lateral,L5-S1 spot,Flexion and Extension views were obtained. AP,Lateral,L5-S1 spot and Bilateral Oblique views were obtained. COMPARISON: None. FINDINGS: There is multilevel degenerative change, particularly at L4-5 and L5-S1. There is no subluxation or evidence of pathologic motion. Facet joint degenerative change L4-5 L5-S1 IMPRESSION: No acute pathology or evidence of subluxation Electronically signed: Alma Lopez. Transcribed by: [email or web address], User Resident: Electronically Signed by: HUI MEAD @ 01/30/2020 11:27 AM Normal [facility] Comment on above: Order Comment: Views (X-RAY, LUMBAR SPINE): AP, Lateral, L5-S1 Spot, Flexion, Extension , Weight Bearing?: Y Elma Fungalon 09-27-2019 C Fungal ----- Final Aspergillus fumigatus Complex isolated. Fungal IdentificationTesting performed by: [facility] Dept of Lab Med and Pathology [address] [place] [address] ORGANISM Aspfum Abnormal [facility] Comment on above: Performed By: #### F C #### [facility] [address] [place] [address] C Fungus ID-[facility] 0 C Ref ID Fungus-Johnson See Footnote Abnormal [facility] Comment on above: Order Comment: Sourc e: Tissue - Left thumb nail send to rector for fungal ID Result Comment: SOUR CE: NAIL CLIPPINGS, tissue - left thumb nail CULTURE REFERRED FOR ID, FUNGUS FINAL ASPERGILLUS NIGER COMPLEX Test Performed by: [facility] [address] [place] [address] Structural Steel Worker Apprentice: Cameron Frank M.D. Ph.D.; CLIA# [id number] Performed By: #### C [id number] #### [place] [address] C ANAon 08-25-2019 C MIRYAM ----- Final No anaerobic growth after 72 hrs. Normal [facility] Comment on above: Performed By: #### A NAC #### [facility] [address] [place] [address] C Sterile BSon 08-25-2019 C Sterile BS ----- Final Light Growth of Staphylococcus lugdunensis and . Light Growth of Mixed skin avery isolated ORGANISM Stalug SUSCEPTIBILITY ORGANISM ID: 1 ANTIBIOTIC INTERPRETATION JOSE STATUS POS Staphylococcus lugdunensis Ciprofloxacin S <=0.5 V Erythromycin R >=8 V Gentamicin S <=0.5 V Levofloxacin S 0.5 V Penicillin R 0.25 V Oxacillin S 2 V Rifampin S <=0.5 V Tetracycline S <=1 V Vancomycin S <=0.5 V Normal [facility] Comment on above: Performed By: #### S BS #### [facility] (DEFAULT) [address] [place], [place] [id number] [place] [address] [place], [place] [id number] C AFBon 08-23-2019 C AFB left thumb nail and skin Final No growth at 8 weeks. Acid Fast Stain No Acid Fast Bacilllus seen on smear Normal [facility] Comment on above: Performed By: #### A FB #### [facility] (DEFAULT) [address] [id number] Operative Reporton 0 Operative Report Indication for Surge ry Patient is a poorly controlled diabetic female with a history of left thumb presumably fungal nail infection which has led to inflammation of her paronychia. She had failed to improve with topical antifungal creams via infectious disease and recommendation was given for removal of nail with resumption of attempted topical treatment following removal. Preoperative Diagnosis Left thumb chronic fungal paronychia infection Postoperative Diagnosis Same Operation Left thumb nail removal I&D with curettage of left thumb matrix Tissue specimen for aerobic anaerobic microbacterial fungal cultures Surgeon(s) Hui Amaral M.D. Driver Recruiter None Anesthesia Digital block with 1% plain lidocaine and 1/2% plain bupivacaine 15 mL Mac anesthesia Estimated Blood Loss Minimal Specimen(s) The nail as well as nail matrix tissue from both its surface and from under the epicanthal fold Complications None Technique The patient was taken to the operating room was not given antibiotics her left thumb was prepped and draped in the usual fashion she was given Mac anesthesia and then given digital block to the left thumb. Turnicot was applied. [place] elevator was used to elevate her performed infected thumbnail off of the matrix until could be easily released from under the epicanthal fold. This was sent to pathology for cultures and specimen. The remaining epicanthal fold and matrix had thickened layers of what appeared to be diseased tissue curetting of this tissue was carried out until a healthy base was seen both from under the epicanthal fold and on the matrix itself. Final irrigation and debridement of the thumb appeared to show a clean noncontaminated base therefore patient was dressed with a Adaptic Neosporin under the epicanthal fold by sterile dressings. Tourniquet Time 15 minutes cc juan Kapoor NP, Dr. Leonardo taylor [place] Electronically signed by Hui Amaral MD 08/22/19 12:54 EST Normal [facility] POC Glucose Randomon 020 Glucose [Mass/Vol] 109 mg/dL Normal 78-110 [facility] Comment on above: Performed By: #### C [id number] #### [facility] [address] [place] [address] Glucose [Mass/Vol] 239 mg/dL High 78-110 [facility] Comment on above: Performed By: #### C [id number] #### [facility] [address] [place] [address] Surgical Pathology Reporton 08-22-2019 Surgical Pathology Report Clinical Information Procedure: Left thumb nail reconstruction Pre-operative diagnosis: INFECTION OF NAIL - LEFT THUMB SP Specimen A Left thumb nail Gross Description Received fresh labeled 'micro then path, left thumbnail' is a nail and two detached elongated pieces of light trinh skin. The excision margin of each piece of skin is marked with black ink. The pieces of skin measure 0.5 x 0.3 x 0.1 cm. and 1.1 x 0.5 x 0.1 cm. The center of the larger piece of skin is submitted in cassette A1, and the ends are submitted in cassette A2. The smaller piece of skin is bisected and submitted entirely in cassette A3. The hard light trinh nail measures 1.5 x 1.5 x 0.2 cm. Nearly the entire nail is submitted in cassette A4 after decalcification. Microscopic Description Tissue sections show stratified keratinizing squamous epithelium. A PAS and GMS special stains are performed and highlights fungal organisms. Positive control shows appropriate staining. No malignancy identified. Diagnosis Left thumb nail, reconstruction: - Consistent with onychomycosis. [id number] NISSA Cardenas MD (Electronically signed by) Verified: 08/27/19 11:35 Normal [facility] Comment on above: Performed By: #### S GA #### [facility] (DEFAULT) [address] [place] [address] Remote CBCDIF (for [facility] use o nly)on 01-03-2019 Abs Baso 0.05 k/uL Normal 0.00-0.10 [facility] Abs [place] 0.90 k/uL High 0.00-0.86 [facility] Abs Neut 12.73 k/uL High 1.45-7.50 [facility] Basophils/100 WBC (Bld) 0.3 % Normal [facility] Eosinophils (Bld) [#/Vol] 0.27 10*3/uL Normal 0.00-0.45 [facility] Eosinophils/100 WBC (Bld) 1.5 % Normal [facility] Erythrocyte distribution width (RBC) [Ratio] 15.0 % Normal 11.5-15.0 [facility] Hematocrit (Bld) [Volume fraction] 46.9 % High 36.0-46.0 [facility] Hemoglobin (Bld) [Mass/Vol] 16.1 g/dL High 11.5-15.5 [facility] Lymphocytes (Bld) [#/Vol] 3.51 10*3/uL Normal 1.00-4.00 [facility] Lymphocytes/100 WBC (Bld) 20.1 % Normal [facility] MCH (RBC) [Entitic mass] 30.0 pG Normal 26.0-34.0 [facility] MCHC (RBC) [Mass/Vol] 34.3 g/dL Normal 30.5-36.0 [facility] MCV (RBC) [Entitic vol] 87.3 fL Normal 80.0-100.0 [facility] Monocytes/100 WBC (Bld) 5.2 % Normal [facility] Neutrophils/100 WBC (Bld) 72.9 % Normal [facility] Platelet mean volume (Bld) [Entitic vol] 9.4 fL Normal 9.0-12.7 [facility] Platelets (Bld) [#/Vol] 308 10*3/uL Normal 150-400 [facility] RBC (Bld) [#/Vol] 5.37 10*6/uL High 3.90-5.20 [facility] WBC (Bld) [#/Vol] 17.46 10*3/uL High 3.70-11.00 [facility] CNOVSPon 07-13-2018 CNOVSP Visit (SP) Office (HEMACL) ----- [place] ([id number]) 1970 F Date Time Provider Department 07/13/18 2:45 PM VANESSA ESPINOSA During your visit today, we recorded the following information about you: Temperature Pulse Respiration Blood pressure 98.4 degrees 99/minute 16/minute 117/102 Weight Height 85.9 kg 1.61 m Vanessa Espinosa MD 07/13/2018 3:35 PM Signed HPI Esmer Beach is a 48 year old female who presents in follow up with myeloproliferative syndrome work up negative. She has a hx of sustained leukocytosis and what appears to be some mild polycythemia related to smoking (pack per day). Current Outpatient Prescriptions: JANUVIA 100 mg tablet Take 100 mg by mouth once daily. aspirin, enteric coated (ASPIRIN, ENTERIC COATED) 81 mg EC tablet Take 81 mg by mouth. metoprolol succinate ER (TOPROL XL) 25 mg 24 hr tablet take 1 tablets by mouth once daily isosorbide mononitrate ER (IMDUR) 30 mg 24 hr tablet Take 30 mg by mouth once daily. clopidogrel (PLAVIX) 75 mg tablet Take 75 mg by mouth. atorvastatin (LIPITOR) 40 mg tablet Take 40 mg by mouth once daily. escitalopram oxalate (LEXAPRO) 20 mg tablet Take 20 mg by mouth once daily. metFORMIN (GLUCOPHAGE) 500 mg tablet Take 500 mg by mouth twice daily with meals. metFORMIN ER (GLUCOPHAGE XR) 500 mg 24 hr tablet Take 1,000 mg by mouth twice daily. risperiDONE (RISPERDAL) 0.5 mg tablet Take 0.5 mg by mouth once daily. INCRUSE ELLIPTA 62.5 mcg/actuation inhaler oxyCODONE-acetaminophen (PERCOCET) 5-325 mg tablet lisinopril (ZESTRIL, PRINIVIL) 5 mg tablet umeclidinium-vilanterol (ANORO ELLIPTA) 62.5-25 mcg/actuation inhaler Inhale 1 Inhalation as instructed once daily. topiramate (TOPAMAX) 50 mg tablet Take 50 mg by mouth twice daily. No current facility-administered medications for this visit. ALLERGIES Allergen Reactions - Latex Itching - Pegademase Bovine Other: See Comments headache - Poractant Adiel Swelling - Wheat GI Upset Constipation REVIEW OF SYSTEMS GENERAL: No weight loss, malaise or fevers., SEE HPI HEENT: Negative for frequent or significant headaches, No changes in hearing or vision, no nose bleeds or other nasal problems NECK: Negative for lumps, goiter, pain and significant neck swelling RESPIRATORY: Negative for cough, wheezing or shortness of breath. CARDIOVASCULAR: Negative for chest pain, leg swelling or palpitations. GI: Negative for abdominal discomfort, blood in stools or black stools or change in bowel habits MUSCULOSKELETAL: Negative for joint pain or swelling, back pain or muscle pain. SKIN: Negative for lesions, rash, and itching. PSYCH: Negative for sleep disturbance, mood disorder and recent psychosocial stressors. HEMATOLOGY/LYMPHOLOGY: Negative for prolonged bleeding, bruising easily or swollen nodes. NEURO: No history of headaches, syncope, paralysis, seizures or tremors All other reviewed and negative other than HPI. PHYSICAL EXAM: BP 117/102 Pulse 99 Temp 36.9 ?C (98.4 ?F) (Oral) Resp 16 Ht 161 cm (5' 3.39 ) Wt 85.9 kg (189 lb 4.8 oz) SpO2 97% BMI 33.13 kg/m? General Appearance: alert and oriented, appearing in no acute distress Skin: skin color, texture, turgor normal, no suspicious rashes or lesions. Head: normal. Eyes: Anicteric sclera. Pupils are equally round. Extraocular movements are intact. . Ears: external ears normal Neck: Supple, no adenopathy; thyroid symmetric, normal size, no bruits. Back:no pain with ambulation Lungs: good air exchange overall Heart: RRR Abdomen: No obvious evidence of rebound tenderness or guarding Extremities: Extremities normal. No deformities, edema, or skin discoloration. Good capillary refill.. Musculoskeletal: Spine range of motion normal. Muscular strength intact. Peripheral Pulses: Normal. Neurologic: Gait normal. No gross cerebellar defects Psychiatric: the patient has an appropriate affect Hemoglobin (g/dL) Date Value 07/13/2018 15.8 Hematocrit (%) Date Value 07/13/2018 47.2 WBC (k/uL) Date Value 07/13/2018 19.17 Platelet Count (k/uL) Date Value 07/13/2018 274 ASSESSMENT/PLAN: 1. Leukocytosis, unspecified type - ICD9: 288.60, ICD10: D72.829 Leukocytosis, reactive Mild erythrocytosis from smoking Labs in 6 months and see me in one year - CBC + DIFF (FOR REMOTE [facility] USE) Vanessa Espinosa MD Referring Provider: JUAN MARTINS ([facility]) [[id number]] Allergies As of Date: 07/13/2018 Noted Allergy Reaction LATEX 9 - Itching PEGADEMASE BOVINE 11/04/2016 14 - Other: See Comments Comments: headache PORACTANT ADIEL 11/04/2016 7 - Swelling WHEAT 11/04/2016 8 - GI Upset Comments: Constipation Date Reviewed: 07/13/2018 Reviewed by: Isaura Flores - Fully Assessed Reason for Visit: Leukocytosis [Other] Cmt: follow up Primary Visit Diagnosis:Leukocytosis, unspecified type [D72.829] Order(s):CBC + DIFF (FOR REMOTE [facility] USE) [SQRCBCDF] Order #: [id number] STANDING Follow-up and Disposition History Recorded Prescriptions as of 07/13/2018 Sig: JANUVIA 100 MG TABLET Take 100 mg by mouth once yang* ASPIRIN 81 MG TABLET,DELAYED * Take 81 mg by mouth. METOPROLOL SUCCINATE ER 25 MG* take 1 tablets by mouth once * ISOSORBIDE MONONITRATE ER 30 * Take 30 mg by mouth once brittney* CLOPIDOGREL 75 MG TABLET Take 75 mg by mouth. ATORVASTATIN 40 MG TABLET Take 40 mg by mouth once brittney* ESCITALOPRAM 20 MG TABLET Take 20 mg by mouth once brittney* METFORMIN 500 MG TABLET Take 500 mg by mouth twice da* METFORMIN ER 500 MG TABLET,EX* Take 1,000 mg by mouth twice * RISPERIDONE 0.5 MG TABLET Take 0.5 mg by mouth once yang* INCRUSE ELLIPTA 62.5 MCG/ACTU* OXYCODONE-ACETAMINOPHEN 5 MG-* LISINOPRIL 5 MG TABLET UMECLIDINIUM 62.5 MCG-VILANTE* Inhale 1 Inhalation as instru* TOPIRAMATE 50 MG TABLET Take 50 mg by mouth twice yang* Problem List As Of Date 07/13/2018 Noted Resolved Leukocytosis [D72.829] INVALID FOR* Coronary artery disease involving [place] heart *INVALID FOR* Diabetes mellitus (HCC) [E11.9] INVALID FOR* Psychiatric disorder [F99] INVALID FOR* Encounter Status:Closed by VANESSA ESPINOSA MD on 07/13/18 Normal [facility] PROGRESSon 07-13-2018 PROGRESS HNO ID: [id number] Author: Vanessa Espinosa Service: (none) Author Type: Physician Type: Progress Notes Filed: 07/13/2018 3:35 PM Note Text: HPI Esmer Beach is a 48 year old female who presents in follow up with myeloproliferative syndrome work up negative. She has a hx of sustained leukocytosis and what appears to be some mild polycythemia related to smoking (pack per day). Current Outpatient Prescriptions: JANUVIA 100 mg tablet Take 100 mg by mouth once daily. aspirin, enteric coated (ASPIRIN, ENTERIC COATED) 81 mg EC tablet Take 81 mg by mouth. metoprolol succinate ER (TOPROL XL) 25 mg 24 hr tablet take 1 tablets by mouth once daily isosorbide mononitrate ER (IMDUR) 30 mg 24 hr tablet Take 30 mg by mouth once daily. clopidogrel (PLAVIX) 75 mg tablet Take 75 mg by mouth. atorvastatin (LIPITOR) 40 mg tablet Take 40 mg by mouth once daily. escitalopram oxalate (LEXAPRO) 20 mg tablet Take 20 mg by mouth once daily. metFORMIN (GLUCOPHAGE) 500 mg tablet Take 500 mg by mouth twice daily with meals. metFORMIN ER (GLUCOPHAGE XR) 500 mg 24 hr tablet Take 1,000 mg by mouth twice daily. risperiDONE (RISPERDAL) 0.5 mg tablet Take 0.5 mg by mouth once daily. INCRUSE ELLIPTA 62.5 mcg/actuation inhaler oxyCODONE-acetaminophen (PERCOCET) 5-325 mg tablet lisinopril (ZESTRIL, PRINIVIL) 5 mg tablet umeclidinium-vilanterol (ANORO ELLIPTA) 62.5-25 mcg/actuation inhaler Inhale 1 Inhalation as instructed once daily. topiramate (TOPAMAX) 50 mg tablet Take 50 mg by mouth twice daily. No current facility-administered medications for this visit. ALLERGIES Allergen Reactions - Latex Itching - Pegademase Bovine Other: See Comments headache - Poractant Adiel Swelling - Wheat GI Upset Constipation REVIEW OF SYSTEMS GENERAL: No weight loss, malaise or fevers., SEE HPI HEENT: Negative for frequent or significant headaches, No changes in hearing or vision, no nose bleeds or other nasal problems NECK: Negative for lumps, goiter, pain and significant neck swelling RESPIRATORY: Negative for cough, wheezing or shortness of breath. CARDIOVASCULAR: Negative for chest pain, leg swelling or palpitations. GI: Negative for abdominal discomfort, blood in stools or black stools or change in bowel habits MUSCULOSKELETAL: Negative for joint pain or swelling, back pain or muscle pain. SKIN: Negative for lesions, rash, and itching. PSYCH: Negative for sleep disturbance, mood disorder and recent psychosocial stressors. HEMATOLOGY/LYMPHOLOGY: Negative for prolonged bleeding, bruising easily or swollen nodes. NEURO: No history of headaches, syncope, paralysis, seizures or tremors All other reviewed and negative other than HPI. PHYSICAL EXAM: BP 117/102 Pulse 99 Temp 36.9 ?C (98.4 ?F) (Oral) Resp 16 Ht 161 cm (5' 3.39 ) Wt 85.9 kg (189 lb 4.8 oz) SpO2 97% BMI 33.13 kg/m? General Appearance: alert and oriented, appearing in no acute distress Skin: skin color, texture, turgor normal, no suspicious rashes or lesions. Head: normal. Eyes: Anicteric sclera. Pupils are equally round. Extraocular movements are intact. . Ears: external ears normal Neck: Supple, no adenopathy; thyroid symmetric, normal size, no bruits. Back:no pain with ambulation Lungs: good air exchange overall Heart: RRR Abdomen: No obvious evidence of rebound tenderness or guarding Extremities: Extremities normal. No deformities, edema, or skin discoloration. Good capillary refill.. Musculoskeletal: Spine range of motion normal. Muscular strength intact. Peripheral Pulses: Normal. Neurologic: Gait normal. No gross cerebellar defects Psychiatric: the patient has an appropriate affect Hemoglobin (g/dL) Date Value 07/13/2018 15.8 Hematocrit (%) Date Value 07/13/2018 47.2 WBC (k/uL) Date Value 07/13/2018 19.17 Platelet Count (k/uL) Date Value 07/13/2018 274 ASSESSMENT/PLAN: 1. Leukocytosis, unspecified type - ICD9: 288.60, ICD10: D72.829 Leukocytosis, reactive Mild erythrocytosis from smoking Labs in 6 months and see me in one year - CBC + DIFF (FOR REMOTE [facility] USE) Vanessa Espinosa MD Normal [facility] Remote CBCDIF (for [facility] use o nly)on 07-13-2018 Abs Baso 0.04 k/uL Normal 0.00-0.10 [facility] Abs [place] 0.82 k/uL Normal 0.00-0.86 [facility] Abs Neut 14.68 k/uL High 1.45-7.50 [facility] Basophils/100 WBC (Bld) 0.2 % Normal [facility] Eosinophils (Bld) [#/Vol] 0.15 10*3/uL Normal 0.00-0.45 [facility] Eosinophils/100 WBC (Bld) 0.8 % Normal [facility] Erythrocyte distribution width (RBC) [Ratio] 14.5 % Normal 11.5-15.0 [facility] Hematocrit (Bld) [Volume fraction] 47.2 % High 36.0-46.0 [facility] Hemoglobin (Bld) [Mass/Vol] 15.8 g/dL High 11.5-15.5 [facility] Lymphocytes (Bld) [#/Vol] 3.48 10*3/uL Normal 1.00-4.00 [facility] Lymphocytes/100 WBC (Bld) 18.2 % Normal [facility] MCH (RBC) [Entitic mass] 29.4 pG Normal 26.0-34.0 [facility] MCHC (RBC) [Mass/Vol] 33.5 g/dL Normal 30.5-36.0 [facility] MCV (RBC) [Entitic vol] 87.9 fL Normal 80.0-100.0 [facility] Monocytes/100 WBC (Bld) 4.3 % Normal [facility] Neutrophils/100 WBC (Bld) 76.5 % Normal [facility] Platelet mean volume (Bld) [Entitic vol] 9.3 fL Normal 9.0-12.7 [facility] Platelets (Bld) [#/Vol] 274 10*3/uL Normal 150-400 [facility] RBC (Bld) [#/Vol] 5.37 10*6/uL High 3.90-5.20 [facility] WBC (Bld) [#/Vol] 19.17 10*3/uL High 3.70-11.00 [facility] BCR-ABL Qualitativeon 2017 BCR-ABL Qualitative (NOTE) Normal [facility] Comment on above: Result Comment: Plea se refer to [facility] report, Performed By: #### C ALR, BCRQL #### [facility] [address], [place] [address] Basic Metabolic Panlon 06-15 Anion gap [Moles/Vol] 12 mmol/L Normal 9-18 [facility] Comment on above: Performed By: #### Rosemarie AK2, BMP, HFP, WSR #### [facility] [address] [place], [place] [address] Calcium [Mass/Vol] 9.4 mg/dL Normal 8.5-10.2 [facility] Comment on above: Performed By: #### Rosemarie AK2, BMP, HFP, WSR #### [facility] [address] [place], [place] [address] Chloride [Moles/Vol] 108 mmol/L High 97-105 [facility] Comment on above: Performed By: #### Rosemarie AK2, BMP, HFP, WSR #### [facility] [address] [place], [place] [address] CO2 [Moles/Vol] 21 mmol/L Low 22-30 [facility] Comment on above: Performed By: #### Rosemarie AK2, BMP, HFP, WSR #### [facility] [address] [place], [place] [address] Creatinine [Mass/Vol] 0.65 mg/dL Normal 0.58-0.96 [facility] Comment on above: Performed By: #### Rosemarie AK2, BMP, HFP, WSR #### [facility] [address] [place], [place] [address] eGFR- Amer. >60 Normal [facility] Comment on above: Performed By: #### Rosemarie JOHNSON, YONI, MEDARDO, WSR #### [facility] [address] [place], [place] [address] GFR/1.73 sq M predicted among non-blacks MDRD (S/P/Bld) [Vol rate/Area] mL/min/{1.73_m2} Normal [facility] Comment on above: Result Comment: eGFR (Estimated GFR) Units of measure: mL/min/1.73 meters squared eGFR is derived from the reexpressed MDRD Study equation using the following parameters: serum creatinine, age, gender and race. The creatinine assay has been calibrated to be traceable to IDMS. An eGFR <60 mL/min/1.73m2 for >3 months is consistent with chronic kidney disease. Refer to KDOQI guidelines for clinical interpretation. In patients with unstable renal function, e.g. those with acute kidney injury, the eGFR may not accurately reflect actual GFR. Performed By: #### YONI RUIZ, MEDARDO, WSR #### [facility] [address] [place], [place] [address] Glucose [Mass/Vol] 187 mg/dL High 74-99 [facility] Comment on above: Result Comment: The [place] Diabetes Association (ADA) provides guidance for cutoff values for fasting glucose and random glucose. The ADA defines fasting as no caloric intake for at least 8 hours. Fasting plasma glucose results between 100 to 125 mg/dL indicate increased risk for diabetes (prediabetes). Fasting plasma glucose results greater than or equal to 126 mg/dL meet the criteria for diagnosis of diabetes. In the absence of unequivocal hyperglycemia, results should be confirmed by repeat testing. In a patient with classic symptoms of hyperglycemia or hyperglycemic crisis, random plasma glucose results greater than or equal to 200 mg/dL meet the criteria for diagnosis of diabetes. Reference: Standards of Medical Care in Diabetes 2016, [place] Diabetes Association. Diabetes Care. 2016.39(Suppl 1). Performed By: #### J ELIZABETH, YONI, HFP, WSR #### [facility] [address] [place], [place] [address] Potassium [Moles/Vol] 4.7 mmol/L Normal 3.7-5.1 [facility] Comment on above: Performed By: #### Rosemarie AKMaria Victoria, YONI, HFP, WSR #### [place] [address] [place] [id number] Sodium [Moles/Vol] 141 mmol/L Normal 136-144 [facility] Comment on above: Performed By: #### Rosemarie JOHNSON, YONI, HFP, WSR #### [place] [address] Urea nitrogen [Mass/Vol] 14 mg/dL Normal 7-21 [facility] Comment on above: Performed By: #### Rosemarie JOHNSON, YONI, HFP, WSR #### [place] [address] [place] [address] CALR Exon 9 Mutationon 06-15 CALR Result/Interp Duplicate request Normal [facility] Comment on above: Result Comment: Acco unt Credited SEE RESULT FOR MPNP. 2017 Performed By: #### Elma ALR, BCRQL #### [place] [address] CALR Reviewed by Duplicate request Normal [facility] Comment on above: Result Comment: Acco unt Credited SEE RESULT FOR MPNP. 2017 Performed By: #### Elma ALR, BCRQL #### [place] [address] CALR Specimen Type Duplicate request Normal [facility] Comment on above: Result Comment: Acco unt Credited SEE RESULT FOR MPNP. 2017 Performed By: #### Elma ALR, BCRQL #### [place] [id number] CNOVSPon 06-15-2018 CNOVSP Visit (SP) Office (HEMACL) ----- [place] ([id number]) 1970 F Date Time Provider Department 06/15/18 11:15 AM VANESSA ESPINOSA During your visit today, we recorded the following information about you: Temperature Pulse Respiration Blood pressure 98.3 degrees 76/minute 16/minute 123/65 Weight Height 90.4 kg 1.61 m Vanessa Espinosa MD 06/15/2018 11:39 AM Signed HPI Esmer Beach is a 48 year old female who presents in consultation with sustained leukocytosis. Her WBC is 17 today, 16.3 on 05/18, 21 on 05/10, 12.7 on 03/03/18. No infectious symptoms, fevers, etc. No hx of a hematologic problem. PAST MEDICAL HISTORY Diagnosis Date - Asthma - Depression - Diabetes (HCC) - Hx of heart artery stent - Hypercholesteremia - Hyperlipemia No past surgical history on file. Social History Substance Use Topics - Smoking status: Current Every Day Smoker Types: Cigarettes - Smokeless tobacco: Never Used - Alcohol use No No family history on file. Current Outpatient Prescriptions: aspirin, enteric coated (ASPIRIN, ENTERIC COATED) 81 mg EC tablet Take 81 mg by mouth. atorvastatin (LIPITOR) 40 mg tablet Take 40 mg by mouth once daily. clopidogrel (PLAVIX) 75 mg tablet Take 75 mg by mouth. escitalopram oxalate (LEXAPRO) 20 mg tablet Take 20 mg by mouth once daily. isosorbide mononitrate ER (IMDUR) 30 mg 24 hr tablet Take 30 mg by mouth once daily. metFORMIN ER (GLUCOPHAGE XR) 500 mg 24 hr tablet Take 1,000 mg by mouth twice daily. metoprolol succinate ER (TOPROL XL) 25 mg 24 hr tablet take 1 tablets by mouth once daily risperiDONE (RISPERDAL) 0.5 mg tablet Take 0.5 mg by mouth once daily. topiramate (TOPAMAX) 50 mg tablet Take 50 mg by mouth twice daily. INCRUSE ELLIPTA 62.5 mcg/actuation inhaler lisinopril (ZESTRIL, PRINIVIL) 5 mg tablet metFORMIN (GLUCOPHAGE) 500 mg tablet Take 500 mg by mouth twice daily with meals. oxyCODONE-acetaminophen (PERCOCET) 5-325 mg tablet umeclidinium-vilanterol (ANORO ELLIPTA) 62.5-25 mcg/actuation inhaler Inhale 1 Inhalation as instructed once daily. No current facility-administered medications for this visit. ALLERGIES Allergen Reactions - Latex Itching REVIEW OF SYSTEMS GENERAL: No weight loss, malaise or fevers., SEE HPI HEENT: Negative for frequent or significant headaches, No changes in hearing or vision, no nose bleeds or other nasal problems NECK: Negative for lumps, goiter, pain and significant neck swelling RESPIRATORY: Negative for cough, wheezing or shortness of breath. CARDIOVASCULAR: Negative for chest pain, leg swelling or palpitations. GI: Negative for abdominal discomfort, blood in stools or black stools or change in bowel habits MUSCULOSKELETAL: Negative for joint pain or swelling, back pain or muscle pain. SKIN: Negative for lesions, rash, and itching. PSYCH: Negative for sleep disturbance, mood disorder and recent psychosocial stressors. HEMATOLOGY/LYMPHOLOGY: Negative for prolonged bleeding, bruising easily or swollen nodes. NEURO: No history of headaches, syncope, paralysis, seizures or tremors All other reviewed and negative other than HPI. PHYSICAL EXAM: BP 123/65 Pulse 76 Temp 36.8 ?C (98.3 ?F) (Oral) Resp 16 Ht 161 cm (5' 3.39 ) Wt 90.4 kg (199 lb 4.8 oz) SpO2 98% BMI 34.88 kg/m? General Appearance: alert and oriented, appearing in no acute distress Skin: skin color, texture, turgor normal, no suspicious rashes or lesions. Head: normal. Eyes: Anicteric sclera. Pupils are equally round. Extraocular movements are intact. . Ears: external ears normal Neck: Supple, no adenopathy; thyroid symmetric, normal size, no bruits. Back:no pain with ambulation Lungs: good air exchange overall Heart: RRR Abdomen: No obvious evidence of rebound tenderness or guarding Extremities: Extremities normal. No deformities, edema, or skin discoloration. Good capillary refill.. Musculoskeletal: Spine range of motion normal. Muscular strength intact. Peripheral Pulses: Normal. Neurologic: Gait normal. No gross cerebellar defects Psychiatric: the patient has an appropriate affect Hemoglobin (g/dL) Date Value 06/15/2018 15.4 Hematocrit (%) Date Value 06/15/2018 46.8 WBC (k/uL) Date Value 06/15/2018 17.10 Platelet Count (k/uL) Date Value 06/15/2018 279 ASSESSMENT/PLAN: 1. Leukocytosis, unspecified type - ICD9: 288.60, ICD10: D72.829 (primary diagnosis) Likely reactive, from medications. Cannot rule out myeloproliferative syndrome. Will proceed with work up and see us in follow up. - METFORMIN ER 500 MG TABLET,EXTENDED RELEASE 24 HR - ASPIRIN 81 MG TABLET,DELAYED RELEASE - RISPERIDONE 0.5 MG TABLET - METOPROLOL SUCCINATE ER 25 MG TABLET,EXTENDED RELEASE 24 HR - ISOSORBIDE MONONITRATE ER 30 MG TABLET,EXTENDED RELEASE 24 HR - CLOPIDOGREL 75 MG TABLET - ABS GRAN CT + CBC (FOR REMOTE [facility] USE) - BASIC METABOLIC PNL - HEPATIC FUNCTION PNL - SED RATE WESTERGREN - BCR-ABL QUALITATIVE MULTIPLEX RT-PCR - JAK2 [id number] MUTATION BLOOD - MPL MUTATION ANALYSIS BLOOD - CALR EXON 9 MUTATION ANALYSIS BLOOD 2. 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, unspecified vessel or lesion type (HCC) - ICD9: 414.01, 413.9, ICD10: I25.118 See above - METFORMIN ER 500 MG TABLET,EXTENDED RELEASE 24 HR - ASPIRIN 81 MG TABLET,DELAYED RELEASE - RISPERIDONE 0.5 MG TABLET - METOPROLOL SUCCINATE ER 25 MG TABLET,EXTENDED RELEASE 24 HR - ISOSORBIDE MONONITRATE ER 30 MG TABLET,EXTENDED RELEASE 24 HR - CLOPIDOGREL 75 MG TABLET - ABS GRAN CT + CBC (FOR REMOTE [facility] USE) - BASIC METABOLIC PNL - HEPATIC FUNCTION PNL - SED RATE WESTERGREN - BCR-ABL QUALITATIVE MULTIPLEX RT-PCR - JAK2 V617F MUTATION BLOOD - MPL MUTATION ANALYSIS BLOOD - CALR EXON 9 MUTATION ANALYSIS BLOOD 3. Other specified diabetes mellitus without complication, with long-term current use of insulin (HCC) - ICD9: 250.00, V58.67, ICD10: E13.9, Z79.4 See above 4. Psychiatric disorder - ICD9: 300.9, ICD10: F99 See above Vanessa Espinosa MD Referring Provider: JUAN MARTINS ([facility]) [[id number]] Allergies As of Date: 06/15/2018 Noted Allergy Reaction LATEX 9 - Itching Date Reviewed: 06/15/2018 Reviewed by: Isaura Flores - Fully Assessed Reason for Visit: Consult [173] Cmt: elevated WBCs Primary Visit Diagnosis:Leukocytosis, unspecified type [D72.829] Other Visit Diagnoses: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, unspecified vessel or lesion type (HCC) [I25.118] Other specified diabetes mellitus without complication, with long-term current use of insulin (HCC) [E13.9, Z79.4] Psychiatric disorder [F99] Order(s):ABS GRAN CT + CBC (FOR REMOTE [facility] USE) [SQRAGCBC] Order #: [id number] FUTURE BASIC METABOLIC PNL [SQBMP] Order #: [id number] FUTURE HEPATIC FUNCTION PNL [SQHFP] Order #: [id number] FUTURE SED RATE WESTERGREN [SQWSR] Order #: [id number] FUTURE BCR-ABL QUALITATIVE MULTIPLEX RT-PCR [SQBCRQL] Order #: [id number] FUTURE JAK2 V617F MUTATION BLOOD [SQJAK2] Order #: [id number] FUTURE MPL MUTATION ANALYSIS BLOOD [SQMPL] Order #: [id number] FUTURE CALR EXON 9 MUTATION ANALYSIS BLOOD [SQCALR] Order #: [id number] FUTURE Disposition: Return in about 4 weeks (around 07/13/2018). Follow-up and Disposition History Recorded Prescriptions as of 06/15/2018 Sig: ASPIRIN 81 MG TABLET,DELAYED * Take 81 mg by mouth. ATORVASTATIN 40 MG TABLET Take 40 mg by mouth once brittney* CLOPIDOGREL 75 MG TABLET Take 75 mg by mouth. ESCITALOPRAM 20 MG TABLET Take 20 mg by mouth once brittney* ISOSORBIDE MONONITRATE ER 30 * Take 30 mg by mouth once brittney* METFORMIN ER 500 MG TABLET,EX* Take 1,000 mg by mouth twice * METOPROLOL SUCCINATE ER 25 MG* take 1 tablets by mouth once * RISPERIDONE 0.5 MG TABLET Take 0.5 mg by mouth once yang* TOPIRAMATE 50 MG TABLET Take 50 mg by mouth twice yang* INCRUSE ELLIPTA 62.5 MCG/ACTU* LISINOPRIL 5 MG TABLET METFORMIN 500 MG TABLET Take 500 mg by mouth twice da* OXYCODONE-ACETAMINOPHEN 5 MG-* UMECLIDINIUM 62.5 MCG-VILANTE* Inhale 1 Inhalation as instru* Problem List As Of Date 06/15/2018 Noted Resolved Leukocytosis [D72.829] INVALID FOR* Coronary artery disease involving [place] heart *INVALID FOR* Diabetes mellitus (HCC) [E11.9] INVALID FOR* Psychiatric disorder [F99] INVALID FOR* Encounter Status:Closed by VANESSA ESPINOSA MD on 06/15/18 Normal [facility] Hepatic Functn Panelon 06-15 Albumin [Mass/Vol] 4.2 g/dL Normal 3.9-4.9 [facility] Comment on above: Performed By: #### YONI RUIZ, HFP, WSR #### [facility] [address] [place], [place] [address] ALP [Catalytic activity/Vol] 99 U/L Normal 34-123 [facility] Comment on above: Performed By: #### YONI RUIZ, HFP, WSR #### [facility] [address] [place], [place] [address] ALT [Catalytic activity/Vol] 18 U/L Normal 7-38 [facility] Comment on above: Performed By: #### Rosemarie JOHNSON, YONI, HFP, WSR #### [facility] [address] [place], [place] [address] AST [Catalytic activity/Vol] 19 U/L Normal 13-35 [facility] Comment on above: Performed By: #### Rosemarie AKMaria Victoria, YONI, HFP, WSR #### [facility] [address] [place], [place] [address] Bilirubin [Mass/Vol] mg/dL Low 0.2-1.3 [facility] Comment on above: Performed By: #### Rosemarie AKMaria Victoria, YONI, HFP, WSR #### [facility] [address] [place], [place] [address] Bilirubin,Conjugate d <0.2 Normal <0.2 [facility] Comment on above: Performed By: #### Rosemarie AK2, BMP, HFP, WSR #### [place] [address] [place] [address] Protein [Mass/Vol] 7.1 g/dL Normal 6.3-8.0 [facility] Comment on above: Performed By: #### Rosemarie AK2, BMP, HFP, WSR #### [place] [address] JAK2 V617F Mutationon 2017 JAK2 V617F Interp Duplicate request Normal [facility] Comment on above: Result Comment: Acco unt Credited SEE RESULT FOR MPNP. 2017 Performed By: #### Rosemarie AK2, BMP, HFP, WSR #### [place] [phone] JAK2 V617F Spec Type Duplicate request Normal [facility] Comment on above: Result Comment: Acco unt Credited SEE RESULT FOR MPNP. 2017 Performed By: #### Rosemarie AKMaria Victoria, BMP, HFP, WSR #### [place] [address] [place] [address] Molecular Path Rev Duplicate request Normal [facility] Comment on above: Result Comment: Acco unt Credited SEE RESULT FOR MPNP. 2017 Performed By: #### Rosemarie AK2, BMP, HFP, WSR #### [place] [address] MPL Mutationon 06-15-2018 MPL Mutation Interp Duplicate request Normal [facility] Comment on above: Result Comment: Acco unt Credited SEE RESULT FOR MPNP. 2017 Performed By: #### M PL #### [place] [address] Myeloprolif Neopl Pnl Bloodo n 06-15-2018 Myelo Neopl Pnl Bld (NOTE) Normal [facility] Comment on above: Result Comment: Shannatanael henry refer to [facility] report, . Performed By: #### M PNP ####[facility] [address] [place], [place] [phone] PROGRESSon 06-15-2018 PROGRESS HNO ID: [id number] Author: Vanessa Espinosa Service: (none) Author Type: Physician Type: Progress Notes Filed: 06/15/2018 11:39 AM Note Text: HPI Esmer Beach is a 48 year old female who presents in consultation with sustained leukocytosis. Her WBC is 17 today, 16.3 on 05/18, 21 on 05/10, 12.7 on 03/03/18. No infectious symptoms, fevers, etc. No hx of a hematologic problem. PAST MEDICAL HISTORY Diagnosis Date - Asthma - Depression - Diabetes (HCC) - Hx of heart artery stent - Hypercholesteremia - Hyperlipemia No past surgical history on file. Social History Substance Use Topics - Smoking status: Current Every Day Smoker Types: Cigarettes - Smokeless tobacco: Never Used - Alcohol use No No family history on file. Current Outpatient Prescriptions: aspirin, enteric coated (ASPIRIN, ENTERIC COATED) 81 mg EC tablet Take 81 mg by mouth. atorvastatin (LIPITOR) 40 mg tablet Take 40 mg by mouth once daily. clopidogrel (PLAVIX) 75 mg tablet Take 75 mg by mouth. escitalopram oxalate (LEXAPRO) 20 mg tablet Take 20 mg by mouth once daily. isosorbide mononitrate ER (IMDUR) 30 mg 24 hr tablet Take 30 mg by mouth once daily. metFORMIN ER (GLUCOPHAGE XR) 500 mg 24 hr tablet Take 1,000 mg by mouth twice daily. metoprolol succinate ER (TOPROL XL) 25 mg 24 hr tablet take 1 tablets by mouth once daily risperiDONE (RISPERDAL) 0.5 mg tablet Take 0.5 mg by mouth once daily. topiramate (TOPAMAX) 50 mg tablet Take 50 mg by mouth twice daily. INCRUSE ELLIPTA 62.5 mcg/actuation inhaler lisinopril (ZESTRIL, PRINIVIL) 5 mg tablet metFORMIN (GLUCOPHAGE) 500 mg tablet Take 500 mg by mouth twice daily with meals. oxyCODONE-acetaminophen (PERCOCET) 5-325 mg tablet umeclidinium-vilanterol (ANORO ELLIPTA) 62.5-25 mcg/actuation inhaler Inhale 1 Inhalation as instructed once daily. No current facility-administered medications for this visit. ALLERGIES Allergen Reactions - Latex Itching REVIEW OF SYSTEMS GENERAL: No weight loss, malaise or fevers., SEE HPI HEENT: Negative for frequent or significant headaches, No changes in hearing or vision, no nose bleeds or other nasal problems NECK: Negative for lumps, goiter, pain and significant neck swelling RESPIRATORY: Negative for cough, wheezing or shortness of breath. CARDIOVASCULAR: Negative for chest pain, leg swelling or palpitations. GI: Negative for abdominal discomfort, blood in stools or black stools or change in bowel habits MUSCULOSKELETAL: Negative for joint pain or swelling, back pain or muscle pain. SKIN: Negative for lesions, rash, and itching. PSYCH: Negative for sleep disturbance, mood disorder and recent psychosocial stressors. HEMATOLOGY/LYMPHOLOGY: Negative for prolonged bleeding, bruising easily or swollen nodes. NEURO: No history of headaches, syncope, paralysis, seizures or tremors All other reviewed and negative other than HPI. PHYSICAL EXAM: BP 123/65 Pulse 76 Temp 36.8 ?C (98.3 ?F) (Oral) Resp 16 Ht 161 cm (5' 3.39 ) Wt 90.4 kg (199 lb 4.8 oz) SpO2 98% BMI 34.88 kg/m? General Appearance: alert and oriented, appearing in no acute distress Skin: skin color, texture, turgor normal, no suspicious rashes or lesions. Head: normal. Eyes: Anicteric sclera. Pupils are equally round. Extraocular movements are intact. . Ears: external ears normal Neck: Supple, no adenopathy; thyroid symmetric, normal size, no bruits. Back:no pain with ambulation Lungs: good air exchange overall Heart: RRR Abdomen: No obvious evidence of rebound tenderness or guarding Extremities: Extremities normal. No deformities, edema, or skin discoloration. Good capillary refill.. Musculoskeletal: Spine range of motion normal. Muscular strength intact. Peripheral Pulses: Normal. Neurologic: Gait normal. No gross cerebellar defects Psychiatric: the patient has an appropriate affect Hemoglobin (g/dL) Date Value 06/15/2018 15.4 Hematocrit (%) Date Value 06/15/2018 46.8 WBC (k/uL) Date Value 06/15/2018 17.10 Platelet Count (k/uL) Date Value 06/15/2018 279 ASSESSMENT/PLAN: 1. Leukocytosis, unspecified type - ICD9: 288.60, ICD10: D72.829 (primary diagnosis) Likely reactive, from medications. Cannot rule out myeloproliferative syndrome. Will proceed with work up and see us in follow up. - METFORMIN ER 500 MG TABLET,EXTENDED RELEASE 24 HR - ASPIRIN 81 MG TABLET,DELAYED RELEASE - RISPERIDONE 0.5 MG TABLET - METOPROLOL SUCCINATE ER 25 MG TABLET,EXTENDED RELEASE 24 HR - ISOSORBIDE MONONITRATE ER 30 MG TABLET,EXTENDED RELEASE 24 HR - CLOPIDOGREL 75 MG TABLET - ABS GRAN CT + CBC (FOR REMOTE [facility] USE) - BASIC METABOLIC PNL - HEPATIC FUNCTION PNL - SED RATE WESTERGREN - BCR-ABL QUALITATIVE MULTIPLEX RT-PCR - JAK2 V617F MUTATION BLOOD - MPL MUTATION ANALYSIS BLOOD - CALR EXON 9 MUTATION ANALYSIS BLOOD 2. 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, unspecified vessel or lesion type (HCC) - ICD9: 414.01, 413.9, ICD10: I25.118 See above - METFORMIN ER 500 MG TABLET,EXTENDED RELEASE 24 HR - ASPIRIN 81 MG TABLET,DELAYED RELEASE - RISPERIDONE 0.5 MG TABLET - METOPROLOL SUCCINATE ER 25 MG TABLET,EXTENDED RELEASE 24 HR - ISOSORBIDE MONONITRATE ER 30 MG TABLET,EXTENDED RELEASE 24 HR - CLOPIDOGREL 75 MG TABLET - ABS GRAN CT + CBC (FOR REMOTE [facility] USE) - BASIC METABOLIC PNL - HEPATIC FUNCTION PNL - SED RATE WESTERGREN - BCR-ABL QUALITATIVE MULTIPLEX RT-PCR - JAK2 V617F MUTATION BLOOD - MPL MUTATION ANALYSIS BLOOD - CALR EXON 9 MUTATION ANALYSIS BLOOD 3. Other specified diabetes mellitus without complication, with long-term current use of insulin (HCC) - ICD9: 250.00, V58.67, ICD10: E13.9, Z79.4 See above 4. Psychiatric disorder - ICD9: 300.9, ICD10: F99 See above Vanessa Espinosa MD [facility] Remote Abs Gran + CBC (for F use only)on 06-15-2018 Absol Gran Count 12.48 k/uL High 1.45-7.50 [facility] Erythrocyte distribution width (RBC) [Ratio] 14.7 % Normal 11.5-15.0 [facility] Hematocrit (Bld) [Volume fraction] 46.8 % High 36.0-46.0 [facility] Hemoglobin (Bld) [Mass/Vol] 15.4 g/dL Normal 11.5-15.5 [facility] MCH (RBC) [Entitic mass] 29.2 pG Normal 26.0-34.0 [facility] MCHC (RBC) [Mass/Vol] 32.9 g/dL Normal 30.5-36.0 [facility] MCV (RBC) [Entitic vol] 88.8 fL Normal 80.0-100.0 [facility] Platelet mean volume (Bld) [Entitic vol] 9.1 fL Normal 9.0-12.7 [facility] Platelets (Bld) [#/Vol] 279 10*3/uL Normal 150-400 [facility] RBC (Bld) [#/Vol] 5.27 10*6/uL High 3.90-5.20 [facility] WBC (Bld) [#/Vol] 17.10 10*3/uL High 3.70-11.00 [facility] SURGICAL PATHOLOGYon 018 SURGICAL PATHOLOGY PROCEDURE REPORT Specimen originated from [facility] Specimen #: [id number] Submitting Physician: VANESSA ESPINOSA MD SPECIMEN SUBMITTED A: PERIPHERAL BLOOD PROCEDURE(S) BCR-ABL QUALITATIVE MULTIPLEX RT-PCR Date Ordered: 06/16/2018 Date Reported: 06/20/2018 Procedure Results and Interpretation BCR/ABL1 RT-PCR, QUALITATIVE Specimen type: Blood Result: BCR/ABL1 fusion transcripts are NOT DETECTED Interpretation: RT-PCR studies are negative for BCR/ABL1 fusion transcripts. For more sensitive residual disease detection in patients with a history of BCR/ABL1 positive chronic myeloid leukemia or acute lymphoblastic leukemia, please order BCR/ABL1 p210 RT-PCR, Quantiative or BCR/ABL1 p190 RT-PCR, Quantitative. Methodology: RNA was purified from this sample, and cDNA prepared by reverse sexual assault nurse. Multiplex RT-PCR studies were performed using fluorescently labeled primers for BCR/ABL1 fusion transcripts including p210 (e13a2, e14a2, e13a3, e14a3), p190 (e1a2, e1a3), p230 (e19a2) and e6a2 isoforms. As an amplification control, primers for wild-type BCR are also included. PCR products are analyzed by capillary electrophoresis. The limit of detection of this assay is approximately 1% BCR/ABL1 normalized copy numbers (BCRABL1/ABL1). This test was developed and its performance characteristics determined by [facility] [place] ([facility]). It has not been cleared or approved by the FDA. RT-[facility] is regulated under CLIA as qualified to perform high-complexity testing. This test is used for clinical purposes. It should not be regarded as investigational or for research. As Reviewed by: Nahomy PIERRE/ 06/20/2018 Procedure Pathologist: Nahomy Galarza M.D. Electronic Signature MYELOPROLIFERATIVE NEOPLASM PANEL BLOOD Date Ordered: 06/16/2018 Date Reported: 06/22/2018 Procedure Results and Interpretation Specimen type: Peripheral Blood Results: CALR No variant detected (Reference sequence: [id number]) JAK2 No variant detected (Reference sequence: [id number]) MPL - No variant detected (Reference sequence: [id number]) Interpretation: No variants were identified in CALR exon 9, JAK2 exons 12-16 or MPL exons 10 and 11. This result does not exclude the possibility of a myeloproliferative neoplasm. If clinically indicated, additional testing for a broader panel of myeloid neoplasm-associated mutations (i.e., Hematologic Neoplasms NGS panel) may be helpful to further assess for clonal hematopoiesis. Methodology: Genomic DNA extracted from blood or bone marrow was subject to an amplicon based method to enrich for CALR exon 9, JAK2 exons 12-16 and MPL exons 10 and 11, including the flanking canonical splicing sites. Pair-end DNA sequencing was performed on the Illumina instrument ([place], [place]). A customized bioinformatic pipeline was used to align the sequencing reads to the reference human genome (GRCh37/hg19). Benign common polymorphisms are not reported. Limitations: Sequence changes outside the analyzed regions, including intronic, noncoding, and splice-site variants, will not be identified by this test. The lower limit of detection of this assay is approximately 1% allele proportion for the JAK2 [id number] single nucleotide variant and approximately 5% allele proportion for other variants. Variants below 5% allele proportion may be reported at the discretion of the molecular pathology professional staff if the technical quality of the sequencing is sufficient at that location and the call is unequivocal. Common germline polymorphisms are considered to represent wild type sequence and are not included in this report. The presence of nucleotide polymorphisms or variants at the annealing sites of the primers used in amplification and sequencing may cause allele drop-outs, hence a false negative result is possible. This test was developed and its performance characteristics determined by [facility] [place] ([facility] It has not been cleared or approved by the FDA. -[facility] is regulated under CLIA as qualified to perform high-complexity testing. This test is used for clinical purposes. It should not be regarded as investigational or for research. As Reviewed by: Nahomy Galarza M.D. [facility]/josh 06/22/18 References: Mark DA, Lux A, Raúl R, Zuri J, Servando MJ, Bessie Olvera MM, et al. The 2016 revision to the World Health Organization (WHO) classification of myeloid neoplasms and acute leukemia. Blood 2016;127: 2391-405. NCCN Guidelines, Myeloproliferative Neoplasms, Version 2.2018. Erik K, Silvio KEBEDE. Genomics of Myeloproliferative Neoplasms. J Clin Oncol. 2017 Sep 20;35(9):947-954. Procedure Pathologist: Nahomy Galarza M.D. Electronic Signature CLINICAL DATA None provided. Date of Report: Date of Procedure: 06/15/2018 Date of Receipt: 06/16/2018 Submitted: VANESSA ESPINOSA MD Location: [facility] Diagnostic interpretation performed at [facility], [address] [place] [address]. Normal [facility] Sed Rate Westergrenon 2017 Sed Rate Westergren 2 mm/hr Normal 0-20 [facility] Comment on above: Performed By: #### J AK2, BMP, HFP, WSR #### [facility] [address] [place] [id number] Encounters Encounter Date Encounter Type Care Provider Facility Start: 09-09-2022 End: 09-10-2022 ambulatory UVALDO MARTINS Facility:[facility] Start: 08-31-2022 End: 09-01-2022 ambulatory UVALDO MARTINS Facility:[facility] Start: 06-07-2022 End: 06-08-2022 ambulatory UVALDO MARTINS Facility:[facility] Start: 12-16-2021 End: 12-17-2021 ambulatory UVALDO MARTINS Facility:[facility] Start: 08-22-2019 End: 08-22-2019 Patient encounter procedure HUI AMARAL Facility:[facility] Start: 08-21-2019 End: 08-22-2019 Patient encounter procedure HUI AMARAL Facility:[facility] Payers Date Payer Category Payer Medicaid 2019 Unknown 1970 Unknown [id number] 2.16.8 [id number] 1970 Unknown [id number] 2.16.8 [id number] 1970 Unknown [id number] 2.16.84 [id number] 1970 Unknown [id number] 2.16.84 [id number] 1970 Unknown [id number] 2.16.84 [id number] 1970 Unknown [id number] 2.16.84 [id number] 1961 Medicaid [id number] 1961 Unknown [id number] Summary Purpose Family History No Family History Records FoundNo Family History Records FoundNo Family History Records FoundNo Family History Records Found Advance Directives No Advanced Directives Records FoundNo Advanced Directives Records FoundNo Advanced Directives Records FoundNo Advanced Directives Records Found Additional Source Comments INFORMATION SOURCE (unrecogn ized section and content) DATE CREATED AUTHOR 01/21/2019 [facility] DATE CREATED AUTHOR AUTHOR'S ORGANIZ ATION 11/16/2019 [facility] DATE CREATED AUTHOR AUTHOR'S ORGANIZ ATION 01/30/2020 [facility] DATE CREATED AUTHOR AUTHOR'S ORGANIZ ATION 09/13/2022 [facility] [employer] FOR RECORDS PERTAINING TO PATIENTS WHO ARE OR HAVE BEEN ENROLLED IN A CHEMICAL DEPENDENCY/SUBSTANCEABUSE PROGRAM, SOME INFORMATION MAY BE OMITTED. This clinical summary was aggregated from multiple sources. Caution should be exercised in using it in the provision of clinical care. This summary normalizes information from multiple sources, and as a consequence, information in this document may materially change the coding, format and clinical context of patient data. In addition, data may be omitted in some cases. CLINICAL DECISIONS SHOULD BE BASED ON THE PRIMARY CLINICAL RECORDS. [employer] provides no warranty or guarantee of the accuracy or completeness of information in this document.
--- NOTE | 2023-11-18 08:49 | XR_ITS ---
The [address] [address] Patient Name: ADDIE BEACH MRN: [id number] date: 1970 Sex: F Assigned Patient Location: [facility] Current Patient Location: [facility] Accession/Order Number: [id number] Exam Date: 11/18/2023 08:52 Report Date: 11/18/2023 09:41 At the request of: TWAN MARTINS Procedure: XR hip RT min 2V PROCEDURE: XR hip RT min 2V COMPARISON: None. HISTORY: Right Hip Pain FINDINGS: BONES:No acute fracture or dislocation. No significant proliferative changes. Narrowing of the inferior joint space SOFT TISSUES:Negative. No visible soft tissue swelling. EFFUSION:None visible. OTHER: Negative. XR/XR hip RT min 2V IMPRESSION: Mild joint space narrowing Electronically authenticated by: NAHOMY BUCHANAN Date: 11/18/2023 09:41
--- NOTE | 2023-11-18 08:49 | XR_ITS ---
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 FINDINGS: BONES: Normal alignment with no acute fracture or spondylolisthesis. Mild spondylosis. Moderate facet osteoarthropathy DISC SPACES: Normal. No significant disc height narrowing, subluxation, or endplate abnormality. PARASPINOUS: Negative. No paraspinous abnormality is seen. OTHER: Vascular calcifications XR/XR lumbar spine 2-3V IMPRESSION: Degenerative changes with no acute abnormality Electronically authenticated by: NAHOMY BUCHANAN Date: 11/18/2023 09:40
== END 2023-11-18 08:23 | disposition home or self-care (01) ==
LOC: RAD 08:25
PROVIDERS: PCP Nurse Practitioner; Visit Provider Nurse Practitioner
DX: M25.551 Pain in right hip (principal); M47.817 Spondylosis without myelopathy or radiculopathy, lumbosacral region
CPT/HCPCS: 72100; 73502

== ENCOUNTER 2024-03-23 08:31 | Outpatient (OUT) | payer MEDICARE, MEDICAID, SELFPAY ==
--- OUTSIDE RECORDS SUMMARY | 2024-03-23 08:45 | XMS_ITS | CCD ---
Author Organization [facility] Care Team Providers Care Mobile Security Specialist Name Role Phone HUI AMARAL Attending Unavailable ESSENCE SHELL Primary Care UnavailESSENCE Amaya Consulting Unavailabl e HUI AMARAL Attending Unavailable ESSENCE SHELL Primary Care Unavailabl e AICHHOLZ, SUPERVISOR SKI PRODUCTION JUAN Admitting Unavailable AICHHOLZ, SUPERVISOR SKI PRODUCTION JUAN Attending Unavailable AICHHOLZ, SUPERVISOR SKI PRODUCTION JUAN Primary Care Unavailable DR NAHOMY BUCHANAN V Consulting Unavailable AICHHOLZ, SUPERVISOR SKI PRODUCTION JUAN Consulting Unavailable AICHHOLZ, SUPERVISOR SKI PRODUCTION JUAN Admitting Unavailable AICHHOLZ, SUPERVISOR SKI PRODUCTION JUAN Attending Unavailable AICHHOLZ, SUPERVISOR SKI PRODUCTION JUAN Primary Care Unavailable AICHHOLZ, SUPERVISOR SKI PRODUCTION JUAN Consulting Unavailable AICHHOLZ, SUPERVISOR SKI PRODUCTION JUAN Admitting Unavailable AICHHOLZ, SUPERVISOR SKI PRODUCTION JUAN Attending Unavailable AICHHOLZ, SUPERVISOR SKI PRODUCTION JUAN Primary Care Unavailable AICHHOLZ, SUPERVISOR SKI PRODUCTION JUAN Primary Care Unavailable SUSANNE, ERIC Admitting Unavailable ERIC SKINNER Attending Unavailable DRAGAN GONZALES Consulting Unavailabl e ERIC SKINNER Consulting Unavailable CASSIE BACK Consulting Unavailable AICHHOLZ, JUAN Attending Unavailable Allergies Allergy Classification Reported Allergen(s) Allergy Type Date of Onset Reaction(s) Facility (2 sources) Latex; Translations: [Unknown] Propensity to adverse reactions to drug (disorder) 5 [facility] Repository (1 source) metFORMIN; Translations: [metFORMIN] Drug Allergy [facility] Repository Problems Active Problems Problem Classification Problem Date Documented Date Episodic/Chronic Anxiety disorders (2 sources) Anxiety disorder, unspecified; Translations: [Post-traumatic stress disorder, unspecified] Onset: 09-14-19 23 Chronic Calculus of urinary tract (1 source) Calculus of ureter; Translations: [CALCULUS OF URETER] Onset: 09-14-19 Episodic Coronary atherosclerosis and other heart disease (1 source) Atherosclerotic heart disease of [place] coronary artery without angina pectoris; Translations: [ASHD [place] W/O ANGINA PECTORIS] Onset: 12-19-19 Chronic [...] UNSPECIFIED] Onset: 09-14-19 Other aftercare (1 source) care home (current) use of aspirin; Translations: [DEMURRAGE MAN CURRENT USE OF ASPIRIN] Onset: 09-14-19 Episodic Other aftercare (1 source) Other group home (current) drug therapy; Translations: [OTH DEMURRAGE MAN CURRENT DRUG THERAPY] Onset: 09-14-19 Episodic Other [...] Da te Episodic/Chronic Other aftercare (1 source) rn long term care (current) use of insulin; Translations: [[facility] CURRENT USE OF INSULIN] Onset: 12-18-2021 Episodic Results Test Name Value Interpretation Reference Range Facility CBC W MANUAL DIFFon 09-10-19 ATYPICAL LYMPH # 1.49 103/ul Normal [facility] Comment on above: Performed By: #### C EMANI #### [facility] [address] [place] [address] Dr. Shakira Bahena ATYPICAL LYMPH % 8 % Normal [facility] Comment on above: Performed By: #### C EMANI #### [facility] [address] [address] [address] Shakira Bahena BAND # 0.0 103/ul Normal 0.0-0.3 [facility] Comment on above: Performed By: #### C EMANI #### [facility] [address] [place] [address] Dr. Shakira Bahena BAND % 0 % Normal 0-5 [facility] Comment on above: Performed By: #### C EMANI #### [facility] [address] [address] [address] Shakira Bahena BASOM # 0.00 103/ul Normal 0.00-0.10 [facility] Comment on above: Performed By: #### C BCMAN #### [facility] [address] [address] [address] Shakira Bahena BASOM % 0.0 % Critically low 0.2-2.[address] [facility] Comment on above: Performed By: #### C BCMAN #### [facility] [address] [address] [address] Shakira Bahena BLAST # Normal [facility] Comment on above: Performed By: #### C BCMAN #### [facility] [address] [place] [address] Dr. Shakira Bahena BLAST % Normal [facility] Comment on above: Performed By: #### C BCANGELA #### [facility] [address] [place] [address] Dr. Shakira Bahena CORRECTED WBC Normal 4.0-11.0 [facility] Comment on above: Performed By: #### C BCANGELA #### [facility] [address] [place] [address] Dr. Shakira Bahena EOS # 0.56 103/ul Normal 0.00-0.70 [facility] Comment on above: Performed By: #### C BCANGELA #### [facility] [address] [place] [address] Dr. Shakira Bahena EOS% 3.0 % Normal 0.9-7.0 [facility] Comment on above: Performed By: #### C BCMAN #### [facility] [address] [place] [address] Dr. Shakira Bahena HCT 50.8 % Critically high 36.0-48.0 [facility] Comment on above: Performed By: #### C BCMAN #### [facility] [address] [place] [address] Dr. Shakira Bahena HGB 17.7 g/dl Critically high 12.0-16.0 [facility] Comment on above: Performed By: #### C BCMAN #### [facility] [address] [address] [address] Shakira Bahena LYMPHM # 1.30 103/ul Normal 1.20-3.80 [facility] Comment on above: Performed By: #### C EMANI #### [facility] [address] [place] [address] Dr. Shakira Bahena LYMPHM% 7.0 % Critically low 20.5-60.[address] [facility] Comment on above: Performed By: #### C EMANI #### [facility] [address] [place] [address] Dr. Shakira Bahena MCH 30.7 pg Normal 26.7-34.0 [facility] Comment on above: Performed By: #### C EMANI #### [facility] [address] [place] [address] Dr. Shakira Bahena MCHC 34.8 g/dl Normal 29.9-35.2 [facility] Comment on above: Performed By: #### C EMANI #### [facility] [address] [place] [address] Dr. Shakira Bahena MCV 88.0 fL Normal 81.0-99.0 [facility] Comment on above: Performed By: #### C EMANI #### [facility] [address] [place] [address] Dr. Shakira Bahena METAMYELOCYTE # Normal [facility] Comment on above: Performed By: #### Elma JOAQUIN #### [facility] [address] [place] [address] Dr. Shakira Bahena METAMYELOCYTE % Normal [facility] Comment on above: Performed By: #### C EMANI #### [facility] [address] [place] [address] Dr. Shakira Bahena MONOM# 0.37 103/ul Normal 0.30-0.80 [facility] Comment on above: Performed By: #### C EMANI #### [facility] [address] [place] [address] Dr. Shakira Bahena MONOM% 2.0 % Normal 1.7-12.0 [facility] Comment on above: Performed By: #### C EMANI #### [facility] [address] [address] [address] Shakira Bahena MPV 10.1 fL Normal 9.5-13.5 [facility] Comment on above: Performed By: #### C EMANI #### [facility] [address] [address] [address] Shakira Bahena MYELOCYTE # Normal [facility] Comment on above: Performed By: #### C EMANI #### [facility] [address] [address] [address] Shakira Bahena MYELOCYTE % Normal [facility] Comment on above: Performed By: #### C EMANI #### [facility] [address] [address] [address] Shakira Bahena NRBC Normal [facility] Comment on above: Performed By: #### C EMANI #### [facility] [address] [place] [address] Dr. Shakira Bahena PLT 235 103/ul Normal 150-450 [facility] Comment on above: Performed By: #### C EMANI #### [facility] [address] [address] [address] Shakira Bahena RBC 5.77 106/ul Critically high 4.20-5.40 [facility] Comment on above: Performed By: #### C EMANI #### [facility] [address] [address] [address] Shakira Bahena RDW 14.5 % Normal 11.0-15.0 [facility] Comment on above: Performed By: #### C EMANI #### [facility] [address] [address] [address] Shakira Bahena SEG # 14.88 103/ul Critically high 1.40-6.50 [facility] Comment on above: Performed By: #### C EMANI #### [facility] [address] [address] [address] Shakira Bahena SEG % 80.0 % Critically high 43.0-75.0 [facility] [place] Comment on above: Performed By: #### C EMANI #### [facility] [address] [place], [place] [address] Dr. Shakira Bahena WBC 18.6 103/ul Critically high 4.0-11.0 [facility] Comment on above: Performed By: Ale### C EMANI #### [facility] [address] [place], [place] [address] ABD/PELVIS WO CONon [...] CASSIE BACK Date: 2022-09-09 21:39 Normal [facility] URINE PROFILEon 3 Bilirubin Ql (U) Negative Normal NEGATIVE [facility] Comment on above: Performed By: #### U MICRO, ERUR #### [facility] [address] [address] [address] Shakira Bahena Clarity (U) CLEAR Normal CLEAR [facility] Comment on above: Performed By: #### U MICRO, ERUR #### [facility] [address] [address] [address] Shakira Bahena Color (U) RED Abnormal YELLOW [facility] Comment on above: Performed By: #### U MICRO, ERUR #### [facility] [address] [address] [address] Shakira Bahena ERUAHD A micrscopic examina tion will be performed if indicated. Normal [facility] Comment on above: Performed By: #### U MICRO, ERUR #### [facility] [address] [address] [address] Shakira Bahena Glucose Ql (U) Negative Normal NEGATIVE [facility] Comment on above: Performed By: #### U MICRO, ERUR #### [facility] [address] [address] [address] Shakira Bahena Hemoglobin Ql (U) LARGE Abnormal NEGATIVE [facility] Comment on above: Performed By: #### U MICRO, ERUR #### [facility] [address] [address] [address] Shakira Bahena Ketones Ql (U) Negative Normal NEGATIVE [facility] Comment on above: Performed By: #### U MICRO, ERUR #### [facility] [address] [address] [address] Shakira Bahena LEUKOCYTES TRACE Abnormal NEGATIVE [facility] Comment on above: Performed By: #### U MICRO, ERUR #### [facility] [address] [address] [address] Shakira Bahena Nitrite Ql (U) Negative Normal NEGATIVE [facility] Comment on above: Performed By: #### U MICRO, ERUR #### [facility] [address] [address] [address] Shakira Bahena pH (U) 5.5 [pH] Normal 5-9 [facility] Comment on above: Performed By: #### U MICRO, ERUR #### [facility] [address] [place] [address] Dr. Shakira Bahena Protein (U) [Mass/Vol] 100 mg/dL Abnormal NEGATIVE/ TRACE [facility] Comment on above: Performed By: #### U MICRO, ERUR #### [facility] [address] [place] [address] Dr. Shakira Bahena SPEC GRAVITY 1.010 Normal 1.005-<=1.[address] [place] [address] Comment on above: Performed By: #### U MICRO, ERUR #### [facility] [address] [place] [address] Dr. Shakira Bahena UR MICRO IND INDICATED Normal [facility] Comment on above: Performed By: #### U MICRO, ERUR #### [facility] [address] [place] [address] Dr. Shakira Bahena Urobilinogen Qn (U) 1.0 {Navin'U}/dL Normal 0.2 - 1. 0 [facility] Comment on above: Performed By: #### U MICRO, ERUR #### [facility] [address] [place] [address] Dr. Shakira Bahena LACTATE/LACTIC ACIDon 2022 Lactate [Moles/Vol] 0.7 mmol/L Normal 0.4-2.0 [facility] Comment on above: Performed By: #### L ACT #### [facility] [address] [place] [address] Dr. Shakira Bahena PROF 14(COMP METB)on 023 Albumin [Mass/Vol] 3.5 g/dL Normal 3.4-5.0 [facility] Comment on above: Performed By: #### P T, PTT #### [facility] [address] [place] [address] Dr. Shakira Bahena Albumin/Globulin [Mass ratio] 1.1 {ratio} Normal [facility] Comment on above: Performed By: #### P T, PTT #### [facility] [address] [place] [address] Dr. Shakira Bahena ALP [Catalytic activity/Vol] 104 U/L Normal 46-116 [facility] Comment on above: Performed By: #### P T, PTT #### [facility] [address] [address] [address] Shakira Bahena ALT [Catalytic activity/Vol] 20 U/L Normal 14-59 [facility] Comment on above: Performed By: #### P T, PTT #### [facility] [address] [address] [address] Shakira Bahena Anion gap [Moles/Vol] 9.9 mmol/L Normal [facility] Comment on above: Performed By: #### P T, PTT #### [facility] [address] [place] [address] Dr. Shakira Bahena AST [Catalytic activity/Vol] 24 U/L Normal 15-37 [facility] Comment on above: Performed By: #### P T, PTT #### [facility] [address] [address] [address] Shakira Bahena Bilirubin [Mass/Vol] 0.4 mg/dL Normal 0.2-1.0 [facility] Comment on above: Performed By: #### P T, PTT #### [facility] [address] [place] [address] Dr. Shakira Bahena Calcium [Mass/Vol] 8.6 mg/dL Normal 8.5-10.1 [facility] Comment on above: Performed By: #### P T, PTT #### [facility] [address] [address] [address] Shakira Bahena Chloride [Moles/Vol] 106 mmol/L Normal 98-107 [facility] Comment on above: Performed By: #### P T, PTT #### [facility] [address] [address] [address] Shakira Bahena CO2 [Moles/Vol] 26.3 mmol/L Normal 21.0-32.0 [facility] Comment on above: Performed By: #### P T, PTT #### [facility] [address] [place] [address] Dr. Shakira Bahena Creatinine [Mass/Vol] 0.60 mg/dL Normal 0.55-1.02 [facility] Comment on above: Performed By: #### P T, PTT #### [facility] [address] [place] [address] Dr. Shakira Bahena EGFR-AF ALGERIAN >60 Normal >=60 [facility] Comment on above: Performed By: #### P T, PTT #### [facility] [address] [address] [address] Shakira Bahena EGFR-NON AF ALGERIAN >60 Normal >=60 [facility] Comment on above: Performed By: #### P T, PTT #### [facility] [address] [place] [address] Dr. Shakira Bahena Globulin (S) [Mass/Vol] 3.2 g/dL Normal [facility] Comment on above: Performed By: #### P T, PTT #### [facility] [address] [place] [address] Dr. Shakira Bahena Glucose [Mass/Vol] 105 mg/dL Normal 74-[address] [facility] Comment on above: Performed By: #### P T, PTT #### [facility] [address] [place] [address] Dr. Shakira Bahena Potassium [Moles/Vol] 4.2 mmol/L Normal 3.5-5.1 [facility] Comment on above: Performed By: #### P T, PTT #### [facility] [address] [place] [address] Dr. Shakira Bahena Protein [Mass/Vol] 6.7 g/dL Normal 6.4-8.[address] [facility] Comment on above: Performed By: #### P T, PTT #### [facility] [address] [place] [address] Dr. Shakira Bahena Sodium [Moles/Vol] 138 mmol/L Normal 136-[address] [facility] Comment on above: Performed By: #### P T, PTT #### [facility] [address] [place] [address] Dr. Shakira Bahena Urea nitrogen [Mass/Vol] 11.0 mg/dL Normal 7.0-18.0 [facility] Comment on above: Performed By: #### P T, PTT #### [facility] [address] [place] [address] Dr. Shakira Bahena Urea nitrogen/Creatinine [Mass ratio] 18.3 mg/mg Normal [facility] Comment on above: Performed By: #### P T, PTT #### [facility] [address] [place] [address] Dr. Shakira Bahena PROTIMEon 09-09-2022 INR Coag (PPP) [Relative time] 0.93 {INR} Normal [facility] Comment on above: Performed By: #### P T, PTT #### [facility] [address] [place] [address] Dr. Shakira Bahena INR GUIDELINES SEE BELOW Normal [facility] Comment on above: Result Comment: SHANA RED INR: 2.0 - 3.0 CONDITIONS NOT LISTED BELOW 2.5 - 3.5 FOR PROSTHETIC HEART VALVE REPLACEMENT 2.5 - 3.5 RECURRENT THROMBOSIS Performed By: #### P T, PTT #### [facility] [address] [place] [address] Dr. Shakira Bahena PT Coag (PPP) [Time] 9.9 s Normal 9.0-11.6 [facility] Comment on above: Performed By: #### P T, PTT #### [facility] [address] [place] [address] Dr. Shakira Bahena PTTon 09-09-2022 aPTT Coag (Bld) [Time] 28.0 s Normal 22.3-36.2 [facility] Comment on above: Performed By: #### P T, PTT #### [facility] [address] [place] [address] Dr. Shakira Bahena URINE MICROSCOPIC ONLYon BACTERIA NONE SEEN Normal NONE SEEN [facility] Comment on above: Performed By: #### U MICRO, ERUR #### [facility] [address] [place] [address] Dr. Shakira Bahena Bacteria identified Cx Nom (U) NOT INDICATED Normal [facility] Comment on above: Performed By: #### U MICRO, ERUR #### [facility] [address] [address] [address] Shakira Bahena CAST NONE SEEN Normal NONE SEEN [facility] Comment on above: Performed By: #### U MICRO, ERUR #### [facility] [address] [address] [address] Shakira Bahena Crystals LM Nom (Urine sed) NONE SEEN Normal NONE SEEN [facility] Comment on above: Performed By: #### U MICRO, ERUR #### [facility] [address] [address] [address] Shakira Bahena Epithelial cells LM Ql (Urine sed) FEW Abnormal NONE SEEN /RARE [facility] Comment on above: Performed By: #### U MICRO, ERUR #### [facility] [address] [place] [address] Dr. Shakira Bahena MUCOUS NONE SEEN Normal NONE SEEN [facility] Comment on above: Performed By: #### U MICRO, ERUR #### [facility] [address] [place] [address] Dr. Shakira Bahena RBC (U) [#/Vol] /uL Abnormal 0-2 [facility] Comment on above: Performed By: #### U MICRO, ERUR #### [facility] [address] [place] [address] Dr. Shakira Bahena WBC 2-5 Abnormal NONE SEEN [facility] Comment on above: Performed By: #### U MICRO, ERUR #### [facility] [address] [address] [address] Sahkira Bahena MG MAMM SCREEN 3D ERLINDA CADon 08-31-2022 MG MAMM SCREEN 3D ERLINDA CAD Patient: ESMER BEACH Exam Date: 08/31/2022 : 1970 Gender:F Ordering : UVALDO MARTINS CNP Admission #: [id number] Family : Order #: [id number] CLICK HERE TO VIEW EXAM RADIOLOGY REPORT [...] lung cancer at age 64. LOCATION: [facility] BREAST COMPOSITION: Scattered areas fibroglandular density. FINDINGS: [...] MD on 08/31/2022 at 14:10 Normal [facility] CBC AUTO DIFFon 12-16-2021 BASO # 0.1 103/ul Normal 0.0-0.1 [facility] Comment on above: Performed By: #### C BC #### [facility] [address] [place] [address] Dr. Shakira Bahena Basophils/100 WBC (Bld) 0.6 % Normal 0.2-2.0 [facility] Comment on above: Performed By: #### C BC #### [facility] [address] [place] [address] Dr. Shakira Bahena EO # 0.3 103/ul Normal 0.0-0.7 [facility] Comment on above: Performed By: #### C BC #### [facility] [address] [place] [address] Dr. Shakira Bahena Eosinophils/100 WBC (Bld) 1.7 % Normal 0.9-7.0 [facility] Comment on above: Performed By: #### C BC #### [facility] [address] [place] [address] Dr. Shakira Bahena Erythrocyte distribution width (RBC) [Ratio] 15.6 % Critically high 11.0-15.0 [facility] Comment on above: Performed By: #### C BC #### [facility] [address] [address] [address] Shakira Bahena Hematocrit (Bld) [Volume fraction] 50.7 % Critically high 36.0-48.0 [facility] Comment on above: Performed By: #### C BC #### [facility] [address] [place] [address] Dr. Shakira Bahena Hemoglobin (Bld) [Mass/Vol] 16.0 g/dL Normal 12.0-16.0 [facility] Comment on above: Performed By: #### C BC #### [facility] [address] [place] [address] Dr. Shakira Bahena IG # 0.06 10e3/ul Critically high 0.00-0.03 [facility] Comment on above: Performed By: #### C BC #### [facility] [address] [place] [address] Dr. Shakira Bahena IG % 0.4 % Normal 0.0-0.5 [facility] Comment on above: Performed By: #### C BC #### [facility] [address] [place] [address] Dr. Shakira Bahena LYMPH # 3.7 103/ul Normal 1.2-3.8 [facility] Comment on above: Performed By: #### C BC #### [facility] [address] [place] [address] Dr. Shakira Bahena Lymphocytes/100 WBC (Bld) 23.9 % Normal 20.5-60.0 [facility] Comment on above: Performed By: #### C BC #### [facility] [address] [place] [address] Dr. Shakira Bahena MANUAL DIFF REQ NO Normal [facility] Comment on above: Performed By: #### C BC #### [facility] [address] [place] [address] Dr. Shakira Bahena MCH (RBC) [Entitic mass] 28.7 pg Normal 26.7-34.0 [facility] Comment on above: Performed By: #### C BC #### [facility] [address] [place] [address] Dr. Shakira Bahena MCHC (RBC) [Mass/Vol] 31.6 g/dL Normal 29.9-35.2 [facility] Comment on above: Performed By: #### C BC #### [facility] [address] [address] [address] Shakira Bahena MCV (RBC) [Entitic vol] 90.9 fL Normal 81.0-99.0 [facility] Comment on above: Performed By: #### C BC #### [facility] [address] [address] [address] Shakira Bahena MONO # 0.7 103/ul Normal 0.3-0.8 [facility] Comment on above: Performed By: #### C BC #### [facility] [address] [place] [address] Dr. Shakira Bahena Monocytes/100 WBC (Bld) 4.5 % Normal 1.7-12.0 [facility] Comment on above: Performed By: #### C BC #### [facility] [address] [place] [address] Dr. Shakira Bahena NEUT # 10.8 103/ul Critically high 1.4-6.5 [facility] Comment on above: Performed By: #### C BC #### [facility] [address] [place] [address] Dr. Shakira Bahena Neutrophils/100 WBC (Bld) 68.9 % Normal 43.0-75.0 [facility] Comment on above: Performed By: #### C BC #### [facility] [address] [place] [address] Dr. Shakira Bahena Platelet mean volume (Bld) [Entitic vol] 10.0 fL Normal 9.5-13.5 [facility] Comment on above: Performed By: #### C BC #### [facility] [address] [place] [address] Dr. Shakira Bahena PLT 309 103/ul Normal 150-450 [facility] Comment on above: Performed By: #### C BC #### [facility] [address] [place] [address] Dr. Shakira Bahena RBC 5.58 106/ul Critically high 4.20-5.40 [facility] Comment on above: Performed By: #### C BC #### [facility] [address] [address] [address] Shakira Bahena WBC 15.6 103/ul Critically high 4.0-11.0 [facility] Comment on above: Performed By: #### C BC #### [facility] [address] [address] [address] Shakira Bahena GLYCOHEMOGLOBIN A1Con 2021 ADA RECOMMENDATION SEE BELOW Normal [facility] Comment on above: Result Comment: ADA RECOMMENDED LIMIT 4.0 - 6.0 ADA THERAPEUTIC TARGET < 7.0 ACTION SUGGESTED > 7.0 Performed By: #### A 1C #### [facility] [address] [place] [address] Dr. Shakira Bahena Glucose [Mass/Vol] 120 mg/dL Normal [facility] Comment on above: Performed By: #### A 1C #### [facility] [address] [place] [address] Dr. Shakira Bahena HbA1c (Bld) [Mass fraction] 5.8 % Normal 4.5-6.2 [facility] Comment on above: Performed By: #### A 1C #### [facility] [address] [place] [address] Dr. Shakira Bahena LIPID PROFILEon 12-16-2021 CHOL-HDL RATIO NORM SEE BELOW Normal [facility] Comment on above: Result Comment: 3.3 - 4.4 LOW RISK 4.4 - 7.1 AVERAGE RISK 7.1 - 11.0 MODERATE RISK >11.0 HIGH RISK Performed By: #### P T, PTT #### [facility] [address] [address] [address] Shakira Bahena Cholesterol [Mass/Vol] 149 mg/dL Normal <=200 [facility] Comment on above: Performed By: #### P T, PTT #### [facility] [address] [address] [address] Shakira Bahena Cholesterol in HDL [Mass/Vol] 28 mg/dL Critically low 40-60 [facility] Comment on above: Performed By: #### P T, PTT #### [facility] [address] [address] [address] Shakira Bahena Cholesterol in LDL [Mass/Vol] 80.6 mg/dL Normal [facility] Comment on above: Performed By: #### P T, PTT #### [facility] [address] [address] [address] Shakira Bahena Cholesterol.total/C holesterol in HDL [Mass ratio] 5.3 {ratio} Normal [facility] Comment on above: Performed By: #### P T, PTT #### [facility] [address] [address] [address] Shakira Bahena HDL NORMAL > or = 60 mg/dl - LO W CARDIOVASCULAR RISK <40 mg/dl - HIGH CARDIOVASCULAR RISK Normal [facility] Comment on above: Performed By: #### P T, PTT #### [facility] [address] [place] [address] Dr. Shakira Bahena LDL CALC NORMAL SEE BELOW Normal [facility] Comment on above: Result Comment: <100 mg/dl OPTIMAL 100 - 129 mg/dl NEAR OR ABOVE OPTIMAL 130 - 159 mg/dl BORDERLINE HIGH 160 - 189 mg/dl HIGH >190 mg/dl VERY HIGH Performed By: #### P T, PTT #### [facility] [address] [place] [address] Dr. Shakira Bahena Triglyceride [Mass/Vol] 202 mg/dL Critically high <=150 [facility] Comment on above: Performed By: #### P T, PTT #### [facility] [address] [place] [address] Dr. Shakira Bahena VLDL CALC 40.4 mg/dL Normal [facility] Comment on above: Performed By: #### P T, PTT #### [facility] [address] [place] [address] Dr. Shakira Bahena MICROALBUMIN, RAND URon 06- mALB <1.3 Normal <=30.0 [facility] Comment on above: Performed By: #### P T, PTT #### [facility] [address] [place] [address] Dr. Shakira Bahena PROF 14(COMP METB)on 022 Albumin [Mass/Vol] 3.5 g/dL Normal 3.4-5.0 [facility] Comment on above: Performed By: #### P T, PTT #### [facility] [address] [place] [address] Dr. Shakira Bahena Albumin/Globulin [Mass ratio] 1.0 {ratio} Normal [facility] Comment on above: Performed By: #### P T, PTT #### [facility] [address] [place] [address] Dr. Shakira Bahena ALP [Catalytic activity/Vol] 103 U/L Normal 46-116 [facility] Comment on above: Performed By: #### P T, PTT #### [facility] [address] [place] [address] Dr. Shakira Bahena ALT [Catalytic activity/Vol] 19 U/L Normal 14-59 [facility] Comment on above: Performed By: #### P T, PTT #### [facility] [address] [place] [address] Dr. Shakira Bahena Anion gap [Moles/Vol] 14.8 mmol/L Normal [facility] Comment on above: Performed By: #### P T, PTT #### [facility] [address] [place] [address] Dr. Shakira Bahena AST [Catalytic activity/Vol] 10 U/L Critically low 15-37 [facility] Comment on above: Performed By: #### P T, PTT #### [facility] [address] [place] [address] Dr. Shakira Bahena Bilirubin [Mass/Vol] 0.3 mg/dL Normal 0.2-1.0 [facility] Comment on above: Performed By: #### P T, PTT #### [facility] [address] [place] [address] Dr. Shakira Bahena Calcium [Mass/Vol] 8.6 mg/dL Normal 8.5-10.[address] [facility] Comment on above: Performed By: #### P T, PTT #### [facility] [address] [address] [address] Shakira Bahena Chloride [Moles/Vol] 107 mmol/L Normal 98-107 [facility] Comment on above: Performed By: #### P T, PTT #### [facility] [address] [address] [address] Shakira Bahena CO2 [Moles/Vol] 23.1 mmol/L Normal 21.0-32.0 [facility] Comment on above: Performed By: #### P T, PTT #### [facility] [address] [address] [address] Shakira Bahena Creatinine [Mass/Vol] 0.79 mg/dL Normal 0.55-1.02 [facility] Comment on above: Performed By: #### P T, PTT #### [facility] [address] [place] [address] Dr. Shakira Bahena EGFR-AF ALGERIAN >60 Normal >=60 [facility] Comment on above: Performed By: #### P T, PTT #### [facility] [address] [address] [address] Shakira Bahena EGFR-NON AF ALGERIAN >60 Normal >=60 [facility] Comment on above: Performed By: #### P T, PTT #### [facility] [address] [place] [address] Dr. Shakira Bahena Globulin (S) [Mass/Vol] 3.4 g/dL Normal [facility] Comment on above: Performed By: #### P T, PTT #### [facility] [address] [address] [address] Shakira Bahena Glucose [Mass/Vol] 157 mg/dL Critically high 74-106 [facility] Comment on above: Performed By: #### P T, PTT #### [facility] [address] [address] [address] Shakira Bahena Potassium [Moles/Vol] 3.9 mmol/L Normal 3.5-5.1 [facility] Comment on above: Performed By: #### P T, PTT #### [facility] [address] [place] [address] Dr. Shakira Bahena Protein [Mass/Vol] 6.9 g/dL Normal 6.4-8.[address] [facility] Comment on above: Performed By: #### P T, PTT #### [facility] [address] [place] [address] Dr. Shakira Bahena Sodium [Moles/Vol] 141 mmol/L Normal 136-[address] [facility] Comment on above: Performed By: #### P T, PTT #### [facility] [address] [place] [address] Dr. Shakira Bahena Urea nitrogen [Mass/Vol] 13.0 mg/dL Normal 7.0-18.0 [facility] Comment on above: Performed By: #### P T, PTT #### [facility] [address] [place] [address] Dr. Shakira Bahena Urea nitrogen/Creatinine [Mass ratio] 16.5 mg/mg Normal [facility] Comment on above: Performed By: #### P T, PTT #### [facility] [address] [place] [address] Dr. Shakira Bahena UA RANDOM W/MICROSCOPICon BACTERIA NONE SEEN Normal NONE SEEN [facility] Comment on above: Performed By: #### P T, PTT #### [facility] [address] [place] [address] Dr. Shakira Bahena Bilirubin Ql (U) Negative Normal NEGATIVE [facility] Comment on above: Performed By: #### P T, PTT #### [facility] [address] [place] [address] Dr. Shakira Bahena CAST NONE SEEN Normal NONE SEEN [facility] Comment on above: Performed By: #### P T, PTT #### [facility] [address] [place] [address] Dr. Shakira Bahena Clarity (U) CLEAR Normal CLEAR [facility] Comment on above: Performed By: #### P T, PTT #### [facility] [address] [place] [address] Dr. Shakira Bahena Color (U) LT. YELLOW Normal YELLOW [facility] Comment on above: Performed By: #### P T, PTT #### [facility] [address] [address] [address] Shakira Bahena Crystals LM Nom (Urine sed) NONE SEEN Normal NONE SEEN [facility] Comment on above: Performed By: #### P T, PTT #### [facility] [address] [place] [address] Dr. Shakira Bahena Epithelial cells LM Ql (Urine sed) RARE Normal NONE SEEN /RARE [facility] Comment on above: Performed By: #### P T, PTT #### [facility] [address] [place] [address] Dr. Shakira Bahena Glucose Ql (U) 100 mg/dl Abnormal NEGATIVE [facility] Comment on above: Performed By: #### P T, PTT #### [facility] [address] [place] [address] Dr. Shakira Bahena Hemoglobin Ql (U) Negative Normal NEGATIVE [facility] Comment on above: Performed By: #### P T, PTT #### [facility] [address] [place] [address] Dr. Shakira Bahena Ketones Ql (U) Negative Normal NEGATIVE [facility] Comment on above: Performed By: #### P T, PTT #### [facility] [address] [place] [address] Dr. Shakira Bahena LEUKOCYTES Negative Normal NEGATIVE [facility] Comment on above: Performed By: #### P T, PTT #### [facility] [address] [address] [address] Shakira Bahena MUCOUS NONE SEEN Normal NONE SEEN [facility] Comment on above: Performed By: #### P T, PTT #### [facility] [address] [place] [address] Dr. Shakira Bahena Nitrite Ql (U) Negative Normal NEGATIVE [facility] Comment on above: Performed By: #### P T, PTT #### [facility] [address] [place] [address] Dr. Shakira Bahena pH (U) 6.0 [pH] Normal 5-9 [facility] Comment on above: Performed By: #### P T, PTT #### [facility] [address] [place] [address] Dr. Shakira Bahena RBC 0-2 Normal 0-2 [facility] Comment on above: Performed By: #### P T, PTT #### [facility] [address] [place] [address] Dr. Shakira Bahena SPEC GRAVITY 1.010 Normal 1.005-<=1.02 5 [facility] Comment on above: Performed By: #### P T, PTT #### [facility] [address] [place] [address] Dr. Shakira Bahena UA PROTEIN Negative Normal NEGATIVE/ TRACE [facility] Comment on above: Performed By: #### P T, PTT #### [facility] [address] [place] [address] Dr. Shakira Bahena Urobilinogen Qn (U) 0.2 {Navin'U}/dL Normal 0.2 - 1. 0 [facility] Comment on above: Performed By: #### P T, PTT #### [facility] [address] [place] [address] Dr. Shakira Bahena WBC NONE SEEN Normal NONE SEEN [facility] Comment on above: Performed By: #### P T, PTT #### [facility] [address] [place] [address] Dr. Shakira Bahena LUMBAR SPINE 4 OR 5 [facility] LUMBAR SPINE 4 OR 5 [facility] Department of Radiology [address] [place] [id number] Patient Name: ESMER BEACH : 1970 [...] Y Exam: LUMBAR SPINE 4 OR 5 S Addendum Begins Addendum: Lumbar spine AP, lateral, coned-down lateral lumbosacral spot film, lateral flexion and lateral extension views. 5 views. Electronically signed: Hui Mead. Addendum Ends LUMBAR SPINE 4 OR 5 S 01/18/2020 2:04 PM CLINICAL INDICATIONS: M48.061 Spinal [...] subluxation Electronically signed: Alma Lopez. Transcribed by: [email or web address], User Resident: Electronically Signed by: HUI MEAD @ 01/30/2020 11:27 AM Normal [facility] Comment on above: Order Comment: Views (X-RAY, LUMBAR SPINE): AP, Lateral, L5-S1 Spot, Flexion, Extension , Weight Bearing?: Y C Fungalon 09-27-2019 C Fungal ----- Final Aspergillus fumigatus Complex isolated. Fungal IdentificationTesting performed by: [facility] Dept of Lab Med and Pathology [address] [place] [address] ORGANISM Aspfum Abnormal [facility] Comment on above: Performed By: #### F C #### [address] [address] C Fungus ID-[facility] 0 C Ref ID Fungus-[place] See Footnote Abnormal [facility] Comment on above: Order Comment: Sourc e: Tissue - Left thumb nail send to [place] for fungal ID Result Comment: SOUR CE: NAIL CLIPPINGS, tissue - left thumb nail CULTURE REFERRED FOR ID, FUNGUS FINAL ASPERGILLUS NIGER COMPLEX Test Performed by: [facility] [address] [place] [address] Profiling Machine Setup Operator: Cameron Frank M.D. Ph.D.; CLIA# [id number] Performed By: #### C [id number] #### [address] [id number] C ANAon 08-25-2019 C MIRYAM ----- Final No anaerobic growth after 72 hrs. Normal [facility] Comment on above: Performed By: #### A NAC #### [facility] [address] [place] [address] C Sterile BSon 08-25-2019 C Sterile BS [...] <=1 V Vancomycin S <=0.5 V Normal [facility] Comment on above: Performed By: #### S BS #### [facility] (DEFAULT) [address] [place], [place] [id number] [place] [address] [place] [address] C AFBon 08-23-2019 C AFB left thumb nail and skin Final No growth at 8 weeks. Acid Fast Stain No Acid Fast Bacilllus seen on smear Normal [facility] Comment on above: Performed By: #### A FB #### [facility] (DEFAULT) [address] [place] [address] [id number] [place] [address] Operative Reporton 0 Operative Report Indication for [...] microbacterial fungal cultures Surgeon(s) Hui Amaral M.D. Tie Presser None Anesthesia Digital block with 1% plain [...] to the left thumb. Turnicot was applied. Lovell elevator was used to elevate her performed [...] cc juan Kapoor NP, Dr. Leonardo taylor [place] Electronically signed by Hui Amaral MD 08/22/19 12:54 EST Normal [facility] POC Glucose Randomon 020 Glucose [Mass/Vol] 109 mg/dL Normal 78-110 [facility] Comment on above: Performed By: #### C D:[id number] #### [address] [address] Glucose [Mass/Vol] 239 mg/dL High 78-110 [facility] Comment on above: Performed By: #### C [id number] #### [facility] [address] [place] [address] Surgical Pathology Reporton 08-22-2019 Surgical Pathology Report [...] thumb nail, reconstruction: - Consistent with onychomycosis. [id number] NISSA Cardenas MD (Electronically signed by) Verified: 08/27/19 11:35 Normal [facility] Comment on above: Performed By: #### S IN #### [facility] (DEFAULT) [address] [place] [address] Remote CBCDIF (for CRITICAL ACCESS HOSPITAL use o nly)on 01-03-2019 Abs Baso 0.05 k/uL Normal 0.00-0.10 [facility] Abs Cocke 0.90 k/uL High 0.00-0.86 [facility] Abs Neut 12.73 k/uL High 1.45-7.50 [facility] Basophils/100 WBC (Bld) 0.3 % Normal [facility] Eosinophils (Bld) [#/Vol] 0.27 10*3/uL Normal 0.00-0.45 [facility] Eosinophils/100 WBC (Bld) 1.5 % Normal [facility] Erythrocyte distribution width (RBC) [Ratio] 15.0 % Normal 11.5-15.0 [facility] Hematocrit (Bld) [Volume fraction] 46.9 % High 36.0-46.0 [facility] Hemoglobin (Bld) [Mass/Vol] 16.1 g/dL High 11.5-15.5 [facility] Lymphocytes (Bld) [#/Vol] 3.51 10*3/uL Normal 1.00-4.00 [facility] Lymphocytes/100 WBC (Bld) 20.1 % Normal [facility] MCH (RBC) [Entitic mass] 30.0 pG Normal 26.0-34.0 [facility] MCHC (RBC) [Mass/Vol] 34.3 g/dL Normal 30.5-36.0 [facility] MCV (RBC) [Entitic vol] 87.3 fL Normal 80.0-100.0 [facility] Monocytes/100 WBC (Bld) 5.2 % Normal [facility] Neutrophils/100 WBC (Bld) 72.9 % Normal [facility] Platelet mean volume (Bld) [Entitic vol] 9.4 fL Normal 9.0-12.7 [facility] Platelets (Bld) [#/Vol] 308 10*3/uL Normal 150-400 [facility] RBC (Bld) [#/Vol] 5.37 10*6/uL High 3.90-5.20 [facility] WBC (Bld) [#/Vol] 17.46 10*3/uL High 3.70-11.00 [facility] CNOVSPon 07-13-2018 CNOVSP Visit (SP) Office (HEMAC[facility]) ----- E[place]ER [place] ([id number]) 1970 F Date Time Provider Department 07/13/18 [...] Vanessa Espinosa MD Referring Provider: JUAN MARTINS ([facility]) [[id number]] Allergies As of Date: 07/13/2018 Noted Allergy [...] (FOR REMOTE [facility] USE) [SQRCBCDF] Order #: [id number] STANDING Follow-up and Disposition History Recorded Prescriptions [...] [D72.829] INVALID FOR* Coronary artery disease involving [place] heart *INVALID FOR* Diabetes mellitus (HCC) [E11.9] INVALID FOR* Psychiatric disorder [F99] INVALID FOR* Encounter Status:Closed by VANESSA ESPINOSA MD on 07/13/18 Normal [facility] PROGRESSon 07-13-2018 PROGRESS HNO ID: [id number] Author: Vanessa Espinosa Service: (none) Author Type: [...] year - CBC + DIFF (FOR REMOTE CRITICAL ACCESS [facility]OSPITAL USE) Vanessa Espinosa MD Normal [facility] Remote CBCDIF (for CRITICAL ACCESS HOSPITAL use o nly)on 07-13-2018 Abs Baso 0.04 k/uL Normal 0.00-0.10 [facility] Abs Cocke 0.82 k/uL Normal 0.00-0.86 [facility] Abs Neut 14.68 k/uL High 1.45-7.50 [facility] Basophils/100 WBC (Bld) 0.2 % Normal [facility] Eosinophils (Bld) [#/Vol] 0.15 10*3/uL Normal 0.00-0.45 [facility] Eosinophils/100 WBC (Bld) 0.8 % Normal [facility] Erythrocyte distribution width (RBC) [Ratio] 14.5 % Normal 11.5-15.0 [facility] Hematocrit (Bld) [Volume fraction] 47.2 % High 36.0-46.0 [facility] Hemoglobin (Bld) [Mass/Vol] 15.8 g/dL High 11.5-15.5 [facility] Lymphocytes (Bld) [#/Vol] 3.48 10*3/uL Normal 1.00-4.00 [facility] Lymphocytes/100 WBC (Bld) 18.2 % Normal [facility] MCH (RBC) [Entitic mass] 29.4 pG Normal 26.0-34.0 [facility] MCHC (RBC) [Mass/Vol] 33.5 g/dL Normal 30.5-36.0 [facility] MCV (RBC) [Entitic vol] 87.9 fL Normal 80.0-100.0 [facility] Monocytes/100 WBC (Bld) 4.3 % Normal [facility] Neutrophils/100 WBC (Bld) 76.5 % Normal [facility] Platelet mean volume (Bld) [Entitic vol] 9.3 fL Normal 9.0-12.7 [facility] Platelets (Bld) [#/Vol] 274 10*3/uL Normal 150-400 [facility] RBC (Bld) [#/Vol] 5.37 10*6/uL High 3.90-5.20 [facility] WBC (Bld) [#/Vol] 19.17 10*3/uL High 3.70-11.00 [facility] BCR-ABL Qualitativeon 2017 BCR-ABL Qualitative (NOTE) Normal [facility] Comment on above: Result Comment: Plea se refer to [facility] Surgical Pathology report, Performed By: #### C ALR, BCRQL #### [facility] [employer] [address] [place] [address] Basic Metabolic Panlon 06-15 Anion gap [Moles/Vol] 12 mmol/L Normal 9-18 [facility] Comment on above: Performed By: #### Rosemarie AK2, BMP, HFP, WSR #### [facility] [employer] [address] [place] [address] Calcium [Mass/Vol] 9.4 mg/dL Normal 8.5-10.2 [facility] Comment on above: Performed By: #### Rosemarie AK2, BMP, HFP, WSR #### [facility] [employer] [address] [place] [address] Chloride [Moles/Vol] 108 mmol/L High 97-105 [facility] Comment on above: Performed By: #### Rosemarie AKMaria Victoria, BMP, HFP, WSR #### [facility] [employer] [address] [place] [address] CO2 [Moles/Vol] 21 mmol/L Low 22-30 [facility] Comment on above: Performed By: #### Rosemarie AK2, BMP, HFP, WSR #### [facility] [employer] [address] [place] [address] Creatinine [Mass/Vol] 0.65 mg/dL Normal 0.58-0.96 [facility] Comment on above: Performed By: #### Rosemarie AK2, BMP, HFP, WSR #### [facility] [employer] [address] [place] [id number] eGFR- Amer. >60 Normal [facility] Comment on above: Performed By: #### YONI RUIZ HFP, GALEN #### [facility] [employer] [address] [place] [id number] GFR/1.73 sq M predicted among non-blacks MDRD (S/P/Bld) [Vol rate/Area] mL/min/{1.73_m2} Normal [facility] Comment on above: Result Comment: eGFR (Estimated [...] reflect actual GFR. Performed By: #### YONI RUIZ HFP, WSR #### [facility] [address] [id number] Glucose [Mass/Vol] 187 mg/dL High 74-99 [facility] Comment on above: Result Comment: The [place] [employer] (ADA) provides guidance for cutoff [...] Standards of Medical Care in Diabetes 2016, [place] [employer]. Diabetes Care. 2016.39(Suppl 1). Performed By: #### YONI RUIZ HFP, WSR #### [facility] [address] [place], [place] [address] Potassium [Moles/Vol] 4.7 mmol/L Normal 3.7-5.1 [facility] Comment on above: Performed By: #### Rosemarie AK2, BMP, HFP, WSR #### [facility] [address] [place], [place] [address] Sodium [Moles/Vol] 141 mmol/L Normal 136-144 [facility] Comment on above: Performed By: #### Rosemarie AK2, BMP, HFP, WSR #### [address] [place], [place] [address] Urea nitrogen [Mass/Vol] 14 mg/dL Normal 7-21 [facility] Comment on above: Performed By: #### Rosemarie AK2, BMP, HFP, WSR #### [address] [address] CALR Exon 9 Mutationon 06-15 CALR Result/Interp Duplicate request Normal [facility] Comment on above: Result Comment: Acco unt Credited SEE RESULT FOR MPNP. 2017 Performed By: #### Elma WHEELER, BCRQL #### [address] [address] CALR Reviewed by Duplicate request Normal [facility] Comment on above: Result Comment: Acco unt Credited SEE RESULT FOR MPNP. 2017 Performed By: #### lEma ALR, BCRQL #### [address] [address] CALR Specimen Type Duplicate request Normal [facility] Comment on above: Result Comment: Acco unt Credited SEE RESULT FOR MPNP. 2017 Performed By: #### Elma ALR, BCRQL #### [facility] [address] [place], [place] [address] CNOVSPon 06-15-2018 CNOVSP Visit (SP) Office (HEMACL) ----- [place] ([id number]) 1970 F Date Time Provider Department 06/15/18 [...] ABS GRAN CT + CBC (FOR REMOTE CRITICAL ACCESS HOSPITAL USE) - BASIC METABOLIC PNL - HEPATIC FUNCTION PNL - SED RATE WESTERGREN - BCR-ABL QUALITATIVE MULTIPLEX RT-PCR - JAK2 V617F MUTATION BLOOD - MPL MUTATION ANALYSIS BLOOD - CALR EXON 9 MUTATION ANALYSIS BLOOD 2. 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, [...] ABS GRAN CT + CBC (FOR REMOTE CRITICAL ACCESS HOSPITAL USE) - BASIC METABOLIC PNL - HEPATIC [...] Vanessa Espinosa MD Referring Provider: JUAN MARTINS ([facility]) [[id number]] Allergies As of Date: 06/15/2018 Noted Allergy Reaction LATEX 9 - Itching Date Reviewed: 06/15/2018 Reviewed by: Isaura Flores - Fully Assessed Reason for Visit: Consult [173] Cmt: elevated WBCs Primary Visit Diagnosis:Leukocytosis, unspecified type [D72.829] Other Visit Diagnoses: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, unspecified vessel or lesion type (HCC) [I25.118] Other specified diabetes mellitus without complication, with long-term current use of insulin (HCC) [E13.9, Z79.4] Psychiatric disorder [F99] Order(s):ABS GRAN CT + CBC (FOR REMOTE [facility] USE) [SQRAGCBC] Order #: [id number] FUTURE BASIC METABOLIC PNL [SQBMP] Order #: [id number] FUTURE HEPATIC FUNCTION PNL [SQHFP] Order #: [id number] FUTURE SED RATE WESTERGREN [SQWSR] Order #: [id number] FUTURE BCR-ABL QUALITATIVE MULTIPLEX RT-PCR [SQBCRQL] Order #: [id number] FUTURE JAK2 V617F MUTATION BLOOD [SQJAK2] Order #: [id number] FUTURE MPL MUTATION ANALYSIS BLOOD [SQMPL] Order #: [id number] FUTURE CALR EXON 9 MUTATION ANALYSIS BLOOD [SQCALR] Order #: [id number] FUTURE Disposition: Return in about 4 weeks [...] [D72.829] INVALID FOR* Coronary artery disease involving [place] heart *INVALID FOR* Diabetes mellitus (HCC) [E11.9] INVALID FOR* Psychiatric disorder [F99] INVALID FOR* Encounter Status:Closed by VANESSA ESPINOSA MD on 06/15/18 Normal [facility] Hepatic Functn Panelon 06-15 Albumin [Mass/Vol] 4.2 g/dL Normal 3.9-4.9 [facility] Comment on above: Performed By: #### Rosemarie AKYONI Irene, HFP, WSR #### [facility] [address] [place] [address] ALP [Catalytic activity/Vol] 99 U/L Normal 34-123 [facility] Comment on above: Performed By: #### Rosemarie AKMaria Victoria, YONI, HFP, WSR #### [facility] [address] [place] [address] ALT [Catalytic activity/Vol] 18 U/L Normal 7-38 [facility] Comment on above: Performed By: #### Rosemarie AKMaria Victoria, YONI, HFP, WSR #### [facility] [address] [place] [id number] AST [Catalytic activity/Vol] 19 U/L Normal 13-35 [facility] Comment on above: Performed By: #### Rosemarie AKMaria Victoria, YONI, HFP, WSR #### [facility] [employer] [address] [place] [id number] Bilirubin [Mass/Vol] mg/dL Low 0.2-1.3 [facility] Comment on above: Performed By: #### Rosemarie AK2, YONI, HFP, WSR #### [facility] [employer] [address] [place] [address] Bilirubin,Conjugate d <0.2 Normal <0.2 [facility] Comment on above: Performed By: #### YONI RUIZ, HFP, WSR #### [facility] [address] [place] [address] Protein [Mass/Vol] 7.1 g/dL Normal 6.3-8.0 [facility] Comment on above: Performed By: #### Rosemarie JOHNSON, YONI, HFP, WSR #### [facility] [address] [place] [address] JAK2 V617F Mutationon 2017 JAK2 V617F Interp Duplicate request Normal [facility] Comment on above: Result Comment: Acco unt Credited SEE RESULT FOR MPNP. 2017 Performed By: #### YONI RUIZ, MEDARDO, WSR #### [place] [address] [place] [address] JAK2 V617F Spec Type Duplicate request Normal [facility] Comment on above: Result Comment: Acco unt Credited SEE RESULT FOR MPNP. 2017 Performed By: #### Rosemarie JOHNSON, YONI, HFP, WSR #### [place] [address] [place] [id number] Molecular Path Rev Duplicate request Normal [facility] Comment on above: Result Comment: Acco unt Credited SEE RESULT FOR MPNP. 2017 Performed By: #### Rosemarie JOHNSON, YONI, HFP, WSR #### [facility] [address] [place] [address] MPL Mutationon 06-15-2018 MPL Mutation Interp Duplicate request Normal [facility] Comment on above: Result Comment: Acco unt Credited SEE RESULT FOR MPNP. 2017 Performed By: #### M PL #### [place] [address] [place] [address] Myeloprolif Neopl Pnl Bloodo n 06-15-2018 Myelo Neopl Pnl Bld (NOTE) Normal [facility] Comment on above: Result Comment: Balta henry refer to [facility] Surgical Pathology report, . Performed By: #### M PNP ####[facility] [address] [place], [place] [id number] PROGRESSon 06-15-2018 PROGRESS HNO ID: [id number] Author: Vanessa Espinosa Service: (none) Author Type: [...] ABS GRAN CT + CBC (FOR REMOTE CRITICAL ACCESS [facility]OSPITAL USE) - BASIC METABOLIC PNL - HEPATIC FUNCTION PNL - SED RATE WESTERGREN - BCR-ABL QUALITATIVE MULTIPLEX RT-PCR - JAK2 V617F MUTATION BLOOD - MPL MUTATION ANALYSIS BLOOD - CALR EXON 9 MUTATION ANALYSIS BLOOD 2. 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, [...] ABS GRAN CT + CBC (FOR REMOTE CRITICAL ACCESS [facility]OSPITAL USE) - BASIC METABOLIC PNL - HEPATIC [...] ICD10: F99 See above Vanessa Espinosa MD Normal [facility] Remote Abs Gran + CBC (for [facility] use only)on 06-15-2018 Absol Gran Count 12.48 k/uL High 1.45-7.50 [facility] Erythrocyte distribution width (RBC) [Ratio] 14.7 % Normal 11.5-15.0 [facility] Hematocrit (Bld) [Volume fraction] 46.8 % High 36.0-46.0 [facility] Hemoglobin (Bld) [Mass/Vol] 15.4 g/dL Normal 11.5-15.5 [facility] MCH (RBC) [Entitic mass] 29.2 pG Normal 26.0-34.0 [facility] MCHC (RBC) [Mass/Vol] 32.9 g/dL Normal 30.5-36.0 [facility] MCV (RBC) [Entitic vol] 88.8 fL Normal 80.0-100.0 [facility] Platelet mean volume (Bld) [Entitic vol] 9.1 fL Normal 9.0-12.7 [facility] Platelets (Bld) [#/Vol] 279 10*3/uL Normal 150-400 [facility] RBC (Bld) [#/Vol] 5.27 10*6/uL High 3.90-5.20 [facility] WBC (Bld) [#/Vol] 17.10 10*3/uL High 3.70-11.00 [facility] SURGICAL PATHOLOGYon 018 SURGICAL PATHOLOGY PROCEDURE REPORT Specimen originated from [facility] Specimen #: [id number] Submitting Physician: VANESSA ESPINOSA MD SPECIMEN SUBMITTED [...] this sample, and cDNA prepared by reverse handling tech. Multiplex RT-PCR studies were performed using fluorescently [...] developed and its performance characteristics determined by [facility]'s [facility] Pathology and Laboratory Medicine [place] ([facility]). It has not been cleared or approved by the FDA. RT-PLOK is regulated under CLIA as qualified to [...] sequencing was performed on the Illumina instrument ([place], [place]). A customized bioinformatic pipeline was used to align the sequencing reads to the reference human genome (GRCh37/hg19). Benign common polymorphisms are not reported. Limitations: Sequence changes outside the analyzed regions, including intronic, noncoding, and splice-site variants, will not be identified by this test. The lower limit of detection of this assay is approximately 1% allele proportion for the JAK2 Kve494Clu single nucleotide variant and approximately 5% allele [...] developed and its performance characteristics determined by [facility]'s [facility] Pathology [facility] Laboratory [facility] [place] ([facility]). It has not been cleared or approved by the FDA. -PLOK is regulated under CLIA as qualified to perform high-complexity testing. This test is used for clinical purposes. It should not be regarded as investigational or for research. As Reviewed by: Nahomy Galarza M.D. [facility]/wa 06/22/18 References: Mark DA, Lux A, Raúl R, Zuri J, Bornaima MJ, Bessie Olvera MM, et al. The [...] Receipt: 06/16/2018 Submitted: VANESSA ESPINOSA MD Location: [facility] Diagnostic interpretation performed at [facility], [address] [place] [address]. Normal [facility] Sed Rate Westergrenon 2017 Sed Rate Westergren 2 mm/hr Normal 0-20 [facility] Comment on above: Performed By: #### J AK2, BMP, HFP, WSR #### [facility] [place] [address] Encounters Encounter Date Encounter Type Care Provider Facility Start: 11-17-2023 End: 11-17-2023 ambulatory JUAN MARTINS Not Available Start: 09-09-2022 End: 09-10-2022 ambulatory UVALDO MARTINS Facility:[facility] Start: 08-31-2022 End: 09-01-2022 ambulatory UVALDO MARTINS Facility:[facility] Start: 06-07-2022 End: 06-08-2022 ambulatory UVALDO MARTINS Facility:[facility] Start: 12-16-2021 End: 12-17-2021 ambulatory UVALDO MARTINS Facility:[facility] Start: 08-22-2019 End: 08-22-2019 Patient encounter procedure HUI Jacobs SHAINAWILLIS Facility:[facility] Start: 08-21-2019 End: 08-22-2019 Patient encounter procedure HUI AMARAL Facility:[facility] Payers Date Payer Category Payer Medicaid 2019 Unknown 1970 Unknown [id number] [id number] [id number] 1970 Unknown [id number] 2.16.8 [id number] 1970 Unknown [id number] 2.16.84 [id number] 1970 Unknown [id number] 2.16.84 [id number] 1970 Unknown [id number] 2.16.84 [id number] 1970 Unknown [id number] 2.16.84 [id number] 1970 Unknown [id number] 2.16.84 [id number] 1961 Medicaid [id number] 1961 Unknown [id number] Summary Purpose Family History No Family History Records FoundNo Family History Records FoundNo Family History Records FoundNo Family History Records FoundNo Family History Records Found Advance Directives No Advanced Directives Records FoundNo Advanced Directives Records FoundNo Advanced Directives Records FoundNo Advanced Directives Records FoundNo Advanced Directives Records Found Additional Source Comments INFORMATION SOURCE (unrecogn ized section and content) DATE CREATED AUTHOR 01/21/2019 [facility] DATE CREATED AUTHOR AUTHOR'S ORGANIZ ATION 11/16/2019 [facility] DATE CREATED AUTHOR AUTHOR'S ORGANIZ ATION 01/30/2020 [facility] DATE CREATED AUTHOR AUTHOR'S ORGANIZ ATION 09/13/2022 [facility] DATE CREATED AUTHOR AUTHOR'S ORGANIZ ATION 11/19/2023 [facility] EPIC FOR RECORDS PERTAINING TO PATIENTS WHO ARE [...] BE BASED ON THE PRIMARY CLINICAL RECORDS. [facility] [employer] [facility]. provides no warranty or guarantee of the accuracy or completeness of information in this document.
[2024-03-23 08:57] LABS: Basophils Absolute Auto 0.1 10^3/uL (0.0-0.1); Basophils Percent Auto 0.6 % (0.2-2.0); Eosinophils Absolute Auto 0.2 10^3/uL (0.0-0.7); Eosinophils Percent Auto 1.7 % (0.9-7.0); Hematocrit 55.5 % (36.0-48.0); Hemoglobin 18.7 g/dL (12.0-16.0); Immature Granulocytes Abs Auto 0.03 10^3/uL (0.00-0.03); Immature Granulocytes Pct Auto 0.2 % (0.0-0.5); Lymphocytes Absolute Auto 2.9 10^3/uL (1.2-3.8); Lymphocytes Percent Auto 23.1 % (20.5-60.0); Mean Corpuscular HGB Conc 33.7 g/dL (29.9-35.2); Mean Corpuscular Hemoglobin 30.6 pg (26.7-34.0); Mean Corpuscular Volume 90.7 fL (81.0-99.0); Mean Platelet Volume 9.2 fL (9.5-13.5); Monocytes Absolute Auto 0.6 10^3/uL (0.3-0.8); Monocytes Percent Auto 4.5 % (1.7-12.0); Neutrophils Absolute Auto 8.9 10^3/uL (1.4-6.5); Neutrophils Percent Auto 69.9 % (43.0-75.0); Platelet Count 235 10^3/uL (150-450); Red Blood Count 6.12 10^6/uL (4.20-5.40); Red Cell Distribution Width 13.8 % (11.0-15.0); White Blood Count 12.7 10^3/uL (4.0-11.0)
[2024-03-23 09:00] LABS: Bilirubin Urine NEGATIVE (NEGATIVE); Blood Urine NEGATIVE (NEGATIVE); Clarity Urine CLEAR (CLEAR); Color Urine YELLOW (YELLOW); Glucose Urine UA 500 mg/dL (NEGATIVE); Ketones Urine NEGATIVE (NEGATIVE); Leukocyte Esterase Urine NEGATIVE (NEGATIVE); Nitrite Urine NEGATIVE (NEGATIVE); Protein Urine NEGATIVE (NEG/TRACE); Specific Gravity Urine 1.025 (1.005-1.025); pH Urine 5.5 (5.0-9.0)
[2024-03-23 09:02] LABS: Urine Microscopic Indicated NO
[2024-03-23 09:25] LABS: Creatinine Urine Random 74.14 mg/dL (20.00-300.00); Microalbum Creatinine Ratio Ur 17.5 mg/g (0.0-29.9); Microalbumin Urine Random <1.3 mg/dL (<=30.0)
[2024-03-23 10:32] LABS: Alanine Aminotransferase 10 U/L (14-59); Albumin Globulin Ratio 0.9; Albumin Level 3.4 g/dL (3.4-5.0); Alkaline Phosphatase 145 U/L (46-116); Anion Gap 11.2; BUN Creatinine Ratio 13.3; Bilirubin Total 0.3 mg/dL (0.2-1.0); Calcium 8.9 mg/dL (8.5-10.1); Carbon Dioxide 28.1 mmol/L (21.0-32.0); Chloride 102 mmol/L (98-107); Chol HDL Ratio 8.6; Cholesterol 267 mg/dL (<=200); Estimated GFR (African America >60 (>=60); Estimated GFR (Non-African Ame >60 (>=60); Globulin 3.8 g/dL; Glucose 254 mg/dL (74-106); HDL Cholesterol 31 mg/dL (40-60); Potassium 4.3 mmol/L (3.5-5.1); Sodium 137 mmol/L (136-145); Total Protein 7.2 g/dL (6.4-8.2); Triglycerides 416 mg/dL (<=150); VLDL CHOLESTEROL 83.2 mg/dL
[2024-03-23 15:36] LABS: Aspartate Amino Transferase <5 U/L (15-37)
[2024-03-23 15:39] LABS: Estimated Average Glucose 183 mg/dL
[2024-03-23 15:58] LABS: LDL Cholesterol Direct 160 mg/dL
== END 2024-03-23 08:32 | disposition home or self-care (01) ==
LOC: LAB 08:33
PROVIDERS: PCP Nurse Practitioner; Visit Provider Nurse Practitioner
DX: I25.10 Atherosclerotic heart disease of native coronary artery without angina pectoris (principal); E11.9 Type 2 diabetes mellitus without complications; K21.9 Gastro-esophageal reflux disease without esophagitis; D72.829 Elevated white blood cell count, unspecified; E78.2 Mixed hyperlipidemia; F41.9 Anxiety disorder, unspecified; F32.A Depression, unspecified
CPT/HCPCS: 36415; 80053; 80061; 81003; 82043; 82570; 83036; 83721; 84443; 85025

== ENCOUNTER 2024-03-23 08:48 | Emergency (ER) | payer MEDICARE, MEDICAID, SELFPAY ==
[2024-03-23 08:51] VITALS: BP 135/88; PULSE 71; TEMP 36.7; O2SAT 100; BMI 39.1
--- NOTE | 2024-03-23 08:59 | ECG_ITS ---
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
--- NOTE | 2024-03-23 09:00 | ED_ITS ---
HPI - Medical Clearance General Chief complaint: Medical Clearance Stated complaint: HIGH SUGAR READING Time Seen by Provider: 03/23/24 08:56 Source: patient Mode of arrival: walk-in Limitations: no limitations History of Present Illness HPI Narrative: 54-year-old female presents to the emergency department for high blood sugars. She ran out of her Ozempic 6 months ago and has not checked her blood sugar during that time until about a week ago. She has not had follow-up with her doctor. She states it has been running high, in the 300s. No fever or vomiting. Related Information Allergies Allergy/AdvReac Type Severity Reaction Status Date / Time latex Allergy Unknown Verified 07/01/23 15:59 metformin Allergy Unknown Verified 07/01/23 15:59 Review of Systems ROS Narrative A ten point review of systems is negative except as noted above. PFSH PFSH Social History Smoking status: Current every day smoker Little interest or pleasure in doing things: not at all Feeling down, depressed, or hopeless: not at all Exam Narrative Exam Narrative: Nurses note and vital signs reviewed and patient is not hypoxic. General: The patient appears well and in no apparent distress. Patient is resting comfortably on cart. Skin: Warm, dry, no pallor noted. There is no rash noted. Head: Normocephalic, atraumatic Eye: Normal conjunctiva, no drainage Ears, Nose, Mouth, and Throat: oral mucosa is moist. Nares patent. Cardiovascular: Regular Rate and Rhythm Respiratory: Patient is in no distress, no accessory muscle use, lungs are clear to auscultation, no wheezing, rales or rhonchi Back: non-tender GI: Soft and nontender Musculoskeletal: The patient has no evidence of calf tenderness, no pitting edema, symmetrical pulses noted bilaterally Neurological: A&O, normal speech Psychiatric: Cooperative Constitutional Vital Signs, click to edit/add: Last Vital Signs Temp 98.0 F 03/23/24 08:51 Pulse 71 03/23/24 08:51 Resp 18 03/23/24 08:51 BP 135/88 03/23/24 08:51 Pulse Ox 100 03/23/24 08:51 Course Vital Signs Vital signs: Vital Signs Temperature 98.0 F 03/23/24 08:51 Pulse Rate 71 03/23/24 08:51 Respiratory Rate 18 03/23/24 08:51 Blood Pressure 135/88 03/23/24 08:51 Pulse Oximetry 100 03/23/24 08:51 Temperature 98.0 F 03/23/24 08:51 Pulse Rate 71 03/23/24 08:51 Respiratory Rate 18 03/23/24 08:51 Blood Pressure 135/88 03/23/24 08:51 Pulse Oximetry 100 03/23/24 08:51 MDM - Medical Clearance MDM Narrative Medical decision making narrative: The patient's blood sugar is elevated. She has been noncompliant with her medications for apparently 6 months. I have spoken to her PCP who is sending in a prescription for Ozempic today and follow-up was advised in the office promptly. Treatment diagnosis and follow-up were discussed with the patient. Differential Diagnosis Differential diagnosis: Likely other (Diabetes, hypoglycemia, noncompliance, dehydration) Lab Data Attestation: I reviewed the patient's lab results. Labs: Lab Results 03/23/24 03/23/24 03/23/24 Range/Units 08:59 09:05 09:50 WBC 12.5 H (4.0-11.0) 10^3/uL RBC 6.14 H (4.20-5.40) 10^6/uL Hgb 18.6 H (12.0-16.0) g/dL Hct 54.1 H (36.0-48.0) % MCV 88.1 (81.0-99.0) fL MCH 30.3 (26.7-34.0) pg MCHC 34.4 (29.9-35.2) g/dL RDW 13.7 (11.0-15.0) % Plt Count 219 (150-450) 10^3/uL MPV 9.6 (9.5-13.5) fL Neut % (Auto) 70.3 (43.0-75.0) % Lymph % (Auto) 22.5 (20.5-60.0) % [place] % (Auto) 4.7 (1.7-12.0) % Eos % (Auto) 1.6 (0.9-7.0) % Baso % (Auto) 0.6 (0.2-2.0) % Neut # (Auto) 8.8 H (1.4-6.5) 10^3/uL Lymph # (Auto) 2.8 (1.2-3.8) 10^3/uL Dyer # (Auto) 0.6 (0.3-0.8) 10^3/uL Eos # (Auto) 0.2 (0.0-0.7) 10^3/uL Baso # (Auto) 0.1 (0.0-0.1) 10^3/uL Abs Immat Gran (auto) 0.04 H (0.00-0.03) 10^3/uL Imm/Tot Granulo (auto) 0.3 (0.0-0.5) % Sodium 136 (136-145) mmol/L Potassium 5.0 (3.5-5.1) mmol/L Chloride 103 (98-107) mmol/L Carbon Dioxide 27.1 (21.0-32.0) mmol/L Anion Gap 10.9 BUN 13.0 (7.0-18.0) mg/dL Creatinine 0.78 (0.55-1.02) mg/dL Est GFR ( Amer) >60 (>=60) Est GFR (Non-Af Amer) >60 (>=60) BUN/Creatinine Ratio 16.7 Glucose 267 H (74-106) mg/dL Calcium 9.0 (8.5-10.1) mg/dL Urine Color Lt. yellow (YELLOW) Urine Clarity Clear (CLEAR) Urine pH 5.5 (5.0-9.0) Ur Specific [place] 1.020 (1.005-1.025) Urine Protein Negative (NEG/TRACE) mg/dL Urine Glucose (UA) 100 A (NEGATIVE) mg/dL Urine Ketones Negative (NEGATIVE) mg/dL Urine Occult Blood Trace-i (NEGATIVE) Urine Nitrite Negative (NEGATIVE) Urine Bilirubin Negative (NEGATIVE) Urine Urobilinogen 1.0 (0.2-1.0) EU/dL Ur Leukocyte Esterase Negative (NEGATIVE) Urine RBC 0-2 (0-2) #/HPF Urine WBC None seen (NONE SEEN) #/HPF Ur Squamous Epith Cells Moderate A (NONE/RARE) #/LPF Urine Bacteria Trace A (NONE SEEN) #/HPF Urine Mucus None seen (NONE SEEN) POC Glucose 232 H (74-106) mg/dL Discharge Plan Discharge Chief Complaint: Medical Clearance Clinical Impression: Hyperglycemia, Noncompliance with diabetes treatment Patient Disposition: Home, Self-Care Time of Disposition Decision: 10:32 Condition: Good Mode of Transportation: Private Vehicle Print Language: Bhutanese Instructions: Diabetic Hyperglycemia (ED) Additional Instructions: Lacy Alberto is sending in a prescription for Ozempic today. Referrals: Lacy Alberto MOTOR COACH DRIVER [Primary Care Provider] - 1 week
[2024-03-23 09:01] LABS: Glucometer 232 mg/dL (74-106)
[2024-03-23 09:15] LABS: Basophils Absolute Auto 0.1 10^3/uL (0.0-0.1); Basophils Percent Auto 0.6 % (0.2-2.0); Eosinophils Absolute Auto 0.2 10^3/uL (0.0-0.7); Eosinophils Percent Auto 1.6 % (0.9-7.0); Hematocrit 54.1 % (36.0-48.0); Hemoglobin 18.6 g/dL (12.0-16.0); Immature Granulocytes Abs Auto 0.04 10^3/uL (0.00-0.03); Immature Granulocytes Pct Auto 0.3 % (0.0-0.5); Lymphocytes Absolute Auto 2.8 10^3/uL (1.2-3.8); Lymphocytes Percent Auto 22.5 % (20.5-60.0); Mean Corpuscular HGB Conc 34.4 g/dL (29.9-35.2); Mean Corpuscular Hemoglobin 30.3 pg (26.7-34.0); Mean Corpuscular Volume 88.1 fL (81.0-99.0); Mean Platelet Volume 9.6 fL (9.5-13.5); Monocytes Absolute Auto 0.6 10^3/uL (0.3-0.8); Monocytes Percent Auto 4.7 % (1.7-12.0); Neutrophils Absolute Auto 8.8 10^3/uL (1.4-6.5); Neutrophils Percent Auto 70.3 % (43.0-75.0); Platelet Count 219 10^3/uL (150-450); Red Blood Count 6.14 10^6/uL (4.20-5.40); Red Cell Distribution Width 13.7 % (11.0-15.0); White Blood Count 12.5 10^3/uL (4.0-11.0)
[2024-03-23] MEDS: 0.9 % SODIUM CHLORIDE 1,000 ML 1000 ML IV (09:18)
[2024-03-23 09:26] LABS: Anion Gap 10.9; BUN Creatinine Ratio 16.7; Carbon Dioxide 27.1 mmol/L (21.0-32.0); Chloride 103 mmol/L (98-107); Estimated GFR (African America >60 (>=60); Estimated GFR (Non-African Ame >60 (>=60); Glucose 267 mg/dL (74-106); Sodium 136 mmol/L (136-145)
[2024-03-23 10:04] LABS: Bilirubin Urine NEGATIVE (NEGATIVE); Blood Urine TRACE-I (NEGATIVE); Clarity Urine CLEAR (CLEAR); Color Urine LT. YELLOW (YELLOW); Glucose Urine UA 100 mg/dL (NEGATIVE); Ketones Urine NEGATIVE (NEGATIVE); Leukocyte Esterase Urine NEGATIVE (NEGATIVE); Nitrite Urine NEGATIVE (NEGATIVE); Protein Urine NEGATIVE (NEG/TRACE); pH Urine 5.5 (5.0-9.0)
[2024-03-23 10:22] LABS: Bacteria Urine TRACE #/HPF (NONE SEEN); Mucus Urine NONE SEEN (NONE SEEN); RBC Urine 0-2 #/HPF (0-2); Squamous Epithelial Cell Urine MODERATE #/LPF (NONE/RARE); WBC Urine NONE SEEN #/HPF (NONE SEEN)
[2024-03-23 10:37] VITALS: BP 124/78; PULSE 86; O2SAT 99
== END 2024-03-23 10:44 | disposition home or self-care (01) ==
PROVIDERS: Emergency Provider Emergency Medicine; PCP Nurse Practitioner
DX: E11.65 Type 2 diabetes mellitus with hyperglycemia (principal); Z91.148 Patient's other noncompliance with medication regimen for other reason; I25.10 Atherosclerotic heart disease of native coronary artery without angina pectoris; K21.9 Gastro-esophageal reflux disease without esophagitis; D72.829 Elevated white blood cell count, unspecified; E78.2 Mixed hyperlipidemia; F41.9 Anxiety disorder, unspecified; F32.A Depression, unspecified; F17.200 Nicotine dependence, unspecified, uncomplicated
CPT/HCPCS: 36415; 80048; 80053; 80061; 81001; 81003; 82043; 82570; 83036; 83721; 84443; 85025; 93005; 99285

== ENCOUNTER 2024-07-30 10:14 | Outpatient (OUT) | payer MEDICARE, MEDICAID, SELFPAY ==
--- NOTE | 2024-07-30 11:46 | PM.CN ---
Consult Note: HPI Data of Consult Patient: new to practice Consult date: 07/30/24 Requesting Physician: Vaishnavi Menon MD Primary Care Provider: Lacy Alberto NP Consult Narrative Reason for consult: neck, bilateral arm, low back, bilateral leg pain Narrative: 54yof who presents for evaluation. longstanding neck, bilateral arm, low back, bilateral leg pain. had previously been seen by spinal surgeon, who had recommended spinal surgery, but she is hesitant. no recent advanced imaging available, though older imaging showed multilevel stenosis in lumbar spine. has continued in a series of provider directed home exercises >6 weeks, without lasting benefit. uses percocet 5mg once daily prn. denies adverse med side effects. cc:: CC: Vaishnavi Menon MD Review of Systems ROS Status of ROS 10 or more systems reviewed and unremarkable except as noted in history and below [facility] Social History Smoking status: Current every day smoker Little interest or pleasure in doing things: not at all Feeling down, depressed, or hopeless: not at all Meds Home Medications and Allergies Allergies Allergy/AdvReac Type Severity Reaction Status Date / Time latex Allergy Unknown Verified 07/01/23 15:59 metformin Allergy Unknown Verified 07/01/23 15:59 Exam Narrative Exam Narrative: Psych-alert and oriented x 3. Attentive and appropriate, constitutionally normal, displays normal mood and affect per situation. There are no obvious deficits in memory, reasoning, or intellect.? Skin-no obvious rashes, bruising, erythema noted to the patient's area of pain.? Extremities- extremities are warm with minimal edema and palpable pulses. Cervical- tenderness to palpation noted in the cervical spine and paraspinal musculature.? Pain is elicited with flexion, extension, and lateral rotation of the cervical spine.? Range of motion is diminished due to pain. Facet loading maneuvers are positive. Strength-unremarkable and within normal limits with the exception to the bilateral biceps. Sensory-no notable sensory deficits in the bilateral upper extremities to touch or pinprick with the exception to decreased sensation to the bilateral C5, 6 dermatomal distribution. Lumbar-tenderness to palpation noted in the lumbar spine and paraspinal musculature. Pain is elicited with flexion, extension, and lateral rotation of the lumbar spine. Range of motion is diminished with these motions. Facet loading maneuvers are positive.? Strength-noted to be unremarkable with the exception of decreased strength rated at 4 out of 5 in bilateral quadriceps femoris, anterior tibialis. Sensory-no notable sensory deficits in the bilateral lower extremities to touch or pinprick in all dermatomal distributions with the exception to decreased sensation to the bilateral L4, 5 dermatomal distribution Coordination remains intact.? Gait remains non-antalgic. Assessment and Plan Assessment and Plan (1) Lumbar stenosis with neurogenic claudication: (2) Cervical stenosis of spinal canal: Plan 54yof who presents for evaluation. failed conservative measures, as noted. given symptoms and exam findings, will have her update lumbar and cervical mri without contrast. she is in agreement. meds reviewed, uds obtained. agreed to prescribe percocet 5mg once daily prn. follow up after imaging.
== END 2024-07-30 10:15 | disposition home or self-care (01) ==
LOC: PM 10:16
PROVIDERS: PCP Nurse Practitioner; Visit Provider Anesthesiology
DX: M48.062 Spinal stenosis, lumbar region with neurogenic claudication (principal); M48.02 Spinal stenosis, cervical region
CPT/HCPCS: G0463

== ENCOUNTER 2024-08-10 12:54 | Outpatient (OUT) | payer MEDICARE, MEDICAID, SELFPAY ==
--- NOTE | 2024-08-10 13:02 | MR_ITS ---
The [address] [address] Patient Name: ADDIE BEACH MRN: [id number] date: 1970 Sex: F Assigned Patient Location: MRI Current Patient Location: MRI Accession/Order Number: [id number] Exam Date: 08/10/2024 13:10 Report Date: 08/10/2024 14:56 At the request of: EDGARDO LUCERO Procedure: MR cervical spine wo con EXAMINATION: MR cervical spine wo con HISTORY: Cervical Stenosis COMPARISON: No relevant comparison available. TECHNIQUE: A variety of imaging planes and parameters were utilized for visualization of suspected pathology. FINDINGS: CRANIOCERVICAL AREA: Normal foramen magnum with no Chiari malformation. PARASPINAL AREA: Normal with no visible mass. BONES: Normal alignment with no acute fracture or spondylolisthesis. Mild to moderate spondylosis and facet osteoarthropathy most significant C5-C6 CORD: Normal caliber, contour, and signal intensity. CERVICAL DISC LEVELS: C2-C3: Early degenerative disc disease is present without focal protrusion or neural impingement. C3-C4: No significant disc/facet abnormality, spinal stenosis, or foraminal stenosis. C4-C5: No significant disc/facet abnormality, spinal stenosis, or foraminal stenosis. C5-C6: Disc space narrowing and disc desiccation. Mild to moderate diffuse disc/osteophyte complex narrows the central canal to 6.8 mm in AP dimension. No right foraminal stenosis. Mild narrowing of the left neural foramen C6-C7: Early degenerative disc disease is present without focal protrusion or neural impingement. C7-T1:. No significant disc/facet abnormality, spinal stenosis, or foraminal stenosis. MR/MR cervical spine wo con IMPRESSION: Moderate degenerative changes at C5-C6 with central canal and left foraminal stenosis Electronically authenticated by: NAHOMY BUCHANAN Date: 08/10/2024 14:56
== END 2024-08-10 12:55 | disposition home or self-care (01) ==
LOC: MRI 12:54
PROVIDERS: PCP Nurse Practitioner; Visit Provider Anesthesiology
DX: M48.062 Spinal stenosis, lumbar region with neurogenic claudication (principal); M48.02 Spinal stenosis, cervical region; M50.30 Other cervical disc degeneration, unspecified cervical region
CPT/HCPCS: 72141

== ENCOUNTER 2024-08-20 09:48 | Emergency (ER) | payer MEDICARE, MEDICAID, SELFPAY ==
[2024-08-20 09:57] VITALS: BP 190/90; PULSE 111; TEMP 36.9; O2SAT 95; BMI 33.2
--- OUTSIDE RECORDS SUMMARY | 2024-08-20 10:20 | XMS_ITS | CCD ---
Author Organization [facility] Care Team Providers Care Cartridge Belt Puncher Name Role Phone AICHHOLZ, BIODIESEL DIVISION MANAGER LACY Admitting Unavailable AICHHOLZ, BIODIESEL DIVISION MANAGER LACY Attending Unavailable AICHHOLZ, BIODIESEL DIVISION MANAGER LACY Primary Care Unavailable DR NAHOMY BUCHANAN V Consulting Unavailable AICHHOLZ, BIODIESEL DIVISION MANAGER LACY Consulting Unavailable AICHHOLZ, BIODIESEL DIVISION MANAGER LACY Admitting Unavailable AICHHOLZ, BIODIESEL DIVISION MANAGER LACY Attending Unavailable AICHHOLZ, BIODIESEL DIVISION MANAGER LACY Primary Care Unavailable AICHHOLZ, BIODIESEL DIVISION MANAGER LACY Consulting Unavailable AICHHOLZ, BIODIESEL DIVISION MANAGER LACY Admitting Unavailable AICHHOLZ, BIODIESEL DIVISION MANAGER LACY Attending Unavailable AICHHOLZ, BIODIESEL DIVISION MANAGER LACY Primary Care Unavailable AICHHOLZ, BIODIESEL DIVISION MANAGER LACY Primary Care Unavailable SUSANNE, ERIC Admitting Unavailable SUSANNE, ERIC Attending Unavailable RAFAELA ., DRAGAN AGUILERA Consulting Unavailabl e ERIC SKINNER Consulting Unavailable CASSIE BACK Consulting Unavailable Aichholz COTTON MACHINE OPERATOR, Lacy Unavailable Roya PATEL, Fred Primary Care Provider Aichholz COTTON MACHINE OPERATOR, Lacy Unavailable Lynsey PATEL, Edgardo Telles Attending Unavailable Fred Pryor MD Primary Care Unavail able AICHHOLZ, LACY Attending Unavailable AICHHOLZ, LACY Attending Unavailable AICHHOLZ, LACY Attending Unavailable Allergies Allergy Classification Reported Allergen(s) Allergy Type Date of Onset Reaction(s) Facility (2 sources) Latex; Translations: [Latex] Drug allergy (disorder) 5 [facility] Repository (15 sources) atorvastatin Drug Allergy 0 Other [facility] Healthcare (15 sources) Latex Allergy to substance 7 Itching [facility] (16 sources) metFORMIN; Translations: [metFORMIN] Drug Allergy 0 Diarrhea, GI intolerance [facility] Healthcare (15 sources) Metoprolol Drug Allergy 1 Dizziness [facility] Healthcare (15 sources) pegademase bovine Drug Allergy 7 Unknown [facility] (15 sources) Poractant tianna Drug Allergy 7 Swelling [facility] (15 sources) WHEAT DEXTRIN Drug Allergy 7 GI intolerance [facility] Medications Current Medications Medication Drug Class(es) Dates Sig (Normalized) Sig (Original) acetaminophen 325 mg / oxyCODONE hydrochloride 5 mg oral tablet (4 sources) Opioid Agonist Start: 07-23-2024 End: 07-30-2024 take 1 tablet by mouth once oxyCODONE-acetamin ophen (Percocet) 5-325 MG tablet Indications: Spondylosis of 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 Take 1 tablet by mouth every 12 (twelve) hours if needed for severe pain for up to 7 days 14 tablet 07/23/2024 07/30/2024 Active Start: 05-22-2024 End: 05-29-2024 take 1 tablet by mouth once oxyCODONE-acetaminophen (Percocet) 5-325 MG tablet Indications: Spondylosis of 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 Take 1 tablet by mouth every 12 (twelve) hours if needed for severe pain for up to 7 days 14 tablet 05/22/2024 05/29/2024 Active ARIPiprazole 5 mg oral tablet (17 sources) Atypical Antipsychotic Start: 11-17-2023 End: 08-20-2024 take 1 tablet by mouth once daily ARIPiprazole (Abilify) 5 MG tablet Indications: Bipolar disorder, current episode mixed, mild (CMS/HCC) Take 1 tablet (5 mg) by mouth Daily 90 tablet 1 05/22/2024 08/20/2024 Active aspirin 81 mg delayed release oral tablet (8 sources) Platelet Aggregation Inhibitor, Nonsteroidal Anti-inflammatory Drug End: 05-22-2024 take 1 tablet by mouth in the morning aspirin 81 MG EC tablet Take 81 mg by mouth in the morning. 05/22/2024 Discontinued (Therapy completed) Continuous Glucose Multi Needle Machine Operator (FreeStyle [place] 2 [place]) device (15 sources) Start: 02-27-2024 End: 02-26-2025 Continuous Glucose Multi Needle Machine Operator (FreeStyle Helen 2 [place]) device Indications: Type 2 diabetes mellitus without complication, without long-term current use of insulin (CMS/HCC) 1 each Daily 1 each 02/27/2024 02/26/2025 Active Continuous Glucose Sensor (FreeStyle Helen 14 Day Sensor) misc (1 source) Start: 02-07-2024 End: 03-06-2024 Continuous Glucose Sensor (FreeStyle Helen 14 Day Sensor) misc Indications: Type 2 diabetes mellitus without complication, without long-term current use of insulin (CMS/HCC) 1 each by Other route Daily for 28 days 2 each 11 02/07/2024 03/06/2024 Active Continuous Glucose Sensor (FreeStyle Helen 2 Sensor) misc (8 sources) Start: 07-02-2024 Continuous Glucose Sensor (FreeStyle Helen 2 Sensor) misc USE DIRECTED to test BLOOD SUGAR change EVERY 14 days 07/02/2024 Active Start: 05-28-2024 End: 06-25-2024 Continuous Glucose Sensor (F reeStyle Helen 2 Sensor) misc Indications: Type 2 diabetes mellitus without complication, without long-term current use of insulin (CMS/HCC) 1 each Daily for 28 days 2 each 11 05/28/2024 06/25/2024 Active End: 05-28-2024 Continuous Glucose Sensor (F reeStyle Helen 2 Sensor) misc 1 each Daily 05/28/2024 Discontinued (Reorder) escitalopram 10 mg oral tablet (17 sources) Serotonin Reuptake Inhibitor Start: 02-07-2024 End: 08-20-2024 take 1 tablet by mouth once daily escitalopram (Lexapro) 10 MG tablet Indications: Bipolar disorder, current episode mixed, mild (CMS/HCC) , Anxiety and depression (CMS/HCC) Take 1 tablet (10 mg) by mouth Daily 90 tablet 1 05/22/2024 08/20/2024 Active semaglutide (Ozempic, 1 MG/DOSE,) 4 MG/3ML solution pen-injector (3 sources) Start: 08-06-2024 End: 09-03-2024 inject 1 mg by subcutaneous injection every week semaglutide (Ozempic, 1 MG/DOSE,) 4 MG/3ML solution pen-injector Indications: Type 2 diabetes mellitus without complication, without long-term current use of insulin (CMS/HCC) Inject 1 mg under the skin 1 (one) time per week for 28 days 3 mL 3 08/06/2024 09/03/2024 Active Completed/Discontinued Medications Medication Drug Class(es) Dates Sig (Normalized) Sig (Original) Continuous Glucose Multi Needle Machine Operator (FreeStyle Helen 3 [place]) device (3 sources) Start: 05-22-2024 End: 05-28-2024 Continuous Glucose Multi Needle Machine Operator (FreeStyle Helen 3 [place]) device Indications: Type 2 diabetes mellitus without complication, without long-term current use of insulin (CMS/HCC) 1 each Daily 3 each 05/22/2024 05/28/2024 Discontinued (Therapy completed) Start: 05-22-2024 End: 06-21-2024 Continuous Glucose Multi Needle Machine Operator (FreeStyle Helen 3 [place]) device Indications: Type 2 diabetes mellitus without complication, without long-term current use of insulin (CMS/HCC) 1 each Daily 3 each 05/22/2024 06/21/2024 Active Continuous Glucose Sensor (FreeStyle Helen 3 Sensor) misc (3 sources) End: 05-28-2024 Continuous Glucose Sensor (FreeStyle Helen 3 Sensor) misc 1 each Daily 05/28/2024 Discontinued (Therapy completed) Continuous Gluco se Sensor (FreeStyle Helen 3 Sensor) misc 1 each Daily Active Semaglutide,0.25 or 0.5MG/DO S, (Ozempic, 0.25 or 0.5 MG/DOSE,) 2 MG/3ML solution pen-injector (17 sources) Start: 05-22-2024 End: 08-06-2024 Semaglutide,0.25 or 0.5MG/DO S, (Ozempic, 0.25 or 0.5 MG/DOSE,) 2 MG/3ML solution pen-injector Indications: Type 2 Diabetes Mellitus Inject 0.5 mg under the skin every 7 (seven) days for 28 days 3 mL 2 05/22/2024 08/06/2024 Discontinued (Ineffective) Start: 05-22-2024 Semaglutide,0. 25 or 0.5MG/DOS, (Ozempic, 0.25 or 0.5 MG/DOSE,) 2 MG/3ML solution pen-injector Indications: Type 2 Diabetes Mellitus Inject 0.5 mg under the skin every 7 (seven) days for 28 days 3 mL 2 05/22/2024 Active Start: 05-22-2024 End: 06-19-2024 Semaglutide,0.25 or 0.5MG/DO S, (Ozempic, 0.25 or 0.5 MG/DOSE,) 2 MG/3ML solution pen-injector Indications: Type 2 Diabetes Mellitus Inject 0.5 mg under the skin every 7 (seven) days for 28 days 3 mL 2 05/22/2024 06/19/2024 Active Start: 05-01-2024 End: 05-22-2024 Semaglutide,0.25 or 0.5MG/DO S, (Ozempic, 0.25 or 0.5 MG/DOSE,) 2 MG/3ML solution pen-injector Indications: Type 2 Diabetes Mellitus Inject 0.5 mg under the skin every 7 (seven) days for 28 days 3 mL 1 05/01/2024 05/22/2024 Discontinued (Reorder) Start: 05-01-2024 End: 05-29-2024 Semaglutide,0.25 or 0.5MG/DO S, (Ozempic, 0.25 or 0.5 MG/DOSE,) 2 MG/3ML solution pen-injector Indications: Type 2 Diabetes Mellitus Inject 0.5 mg under the skin every 7 (seven) days for 28 days 3 mL 1 05/01/2024 05/29/2024 Active Start: 04-05-2024 End: 04-30-2024 Semaglutide,0.25 or 0.5MG/DO S, (Ozempic, 0.25 or 0.5 MG/DOSE,) 2 MG/3ML solution pen-injector Indications: Type 2 Diabetes Mellitus Inject 0.25 mg under the skin every 7 (seven) days for 28 days Start with 0.25mg once a week for 4 weeks, then increase to 0.5mg dose 3 mL 04/05/2024 04/30/2024 Discontinued (Reorder) Start: 04-05-2024 End: 05-03-2024 Semaglutide,0.25 or 0.5MG/DO S, (Ozempic, 0.25 or 0.5 MG/DOSE,) 2 MG/3ML solution pen-injector Indications: Type 2 Diabetes Mellitus Inject 0.25 mg under the skin every 7 (seven) days for 28 days Start with 0.25mg once a week for 4 weeks, then increase to 0.5mg dose 3 mL 04/05/2024 05/03/2024 Active Start: 03-23-2024 End: 04-05-2024 Semaglutide,0.25 or 0.5MG/DO S, (Ozempic, 0.25 or 0.5 MG/DOSE,) 2 MG/3ML solution pen-injector Indications: Type 2 Diabetes Mellitus Inject 0.25 mg under the skin every 7 (seven) days for 28 days Start with 0.25mg once a week for 4 weeks, then increase to 0.5mg dose 3 mL 03/23/2024 04/05/2024 Discontinued (Reorder) Start: 03-23-2024 End: 04-20-2024 Semaglutide,0.25 or 0.5MG/DO S, (Ozempic, 0.25 or 0.5 MG/DOSE,) 2 MG/3ML solution pen-injector Indications: Type 2 Diabetes Mellitus Inject 0.25 mg under the skin every 7 (seven) days for 28 days Start with 0.25mg once a week for 4 weeks, then increase to 0.5mg dose 3 mL 03/23/2024 04/20/2024 Active End: 03-23-2024 Semaglutide,0.25 or 0.5MG/DO S, (Ozempic, 0.25 or 0.5 MG/DOSE,) 2 MG/3ML solution pen-injector Indications: Type 2 Diabetes Mellitus Inject 0.25 mg under the skin every 7 (seven) days 03/23/2024 Discontinued (Reorder) Problems Active Problems Problem Classification Problem Date Documented Da te Episodic/Chronic Anxiety disorders (20 sources) Anxiety disorder, unspecified; Translations: [Post-traumatic stress disorder, unspecified] Onset: 09-13-2022 11-17-2023 Chronic Calculus of urinary tract (1 source) Calculus of ureter; Translations: [CALCULUS OF URETER] Onset: 09-13-2022 Episodic Chronic obstructive pulmonary disease and bronchiectasis (19 sources) Chronic obstructive lung disease; Translations: [Chronic obstructive pulmonary disease, unspecified] Onset: 11-17-2023 11-17-2023 Chronic Coronary atherosclerosis and other heart disease (20 sources) Atherosclerotic heart disease of [place] coronary artery without angina pectoris; Translations: [Coronary arteriosclerosis] Onset: 06-15-2018 11-17-2023 Chronic Diabetes mellitus with complications (20 sources) Polyneuropathy due to type 2 diabetes mellitus; Translations: [Type 2 diabetes mellitus with diabetic polyneuropathy] Onset: 05-22-2024 05-22-2024 Chronic Diabetes mellitus without complication (20 sources) Type 2 diabetes mellitus without complications; Translations: [Type 2 diabetes mellitus without complication] Onset: 06-15-2018 Resolved: 11-17-2023 Chronic Diseases of white blood cells (15 sources) Leukocytosis; Translations: [Elevated white blood cell count, unspecified] Onset: 09-14-2016 11-17-2023 Chronic Disorders of lipid metabolism (18 sources) Pure hypercholesterolemia, unspecified; Translations: [Mixed hyperlipidemia] Onset: 09-13-2022 11-17-2023 Chronic Disorders usually diagnosed in infancy, childhood, or adolescence (1 source) Other specified behavioral and emotional disorders with onset usually occurring in childhood and adolescence; Translations: [OTH BEHAVR EMOTIONAL D/O CHILD ADOL] Onset: 09-13-2022 Chronic Esophageal disorders (16 sources) Gastro-esophageal reflux disease without esophagitis; Translations: [Gastroesophageal reflux disease without esophagitis] Onset: 09-13-2022 11-17-2023 Chronic Genitourinary symptoms and ill-defined conditions (4 sources) Hematuria, unspecified; Translations: [HEMATURIA UNSPECIFIED] Onset: 09-09-2022 Episodic Mood disorders (19 sources) Mixed bipolar affective disorder, mild; Translations: [Bipolar disorder, current episode mixed, mild] Onset: 07-27-2023 07-27-2023 Chronic Other aftercare (1 source) [facility] (current) use of aspirin; Translations: [BRANCH SERVICES MANAGER CURRENT USE OF ASPIRIN] Onset: 09-13-2022 Episodic Other aftercare (1 source) Other terminal operator (current) drug therapy; Translations: [OTH BRANCH SERVICES MANAGER CURRENT DRUG THERAPY] Onset: 09-13-2022 Episodic Other circulatory disease (1 source) Personal history of transient ischemic attack (TIA), and cerebral infarction without residual deficits; Translations: [PERS HX TIA AND CI NO RESID DEFICIT] Onset: 09-13-2022 Episodic Other gastrointestinal disorders (1 source) Irritable bowel syndrome without diarrhea; Translations: [IRRITABLE BOWEL SYND W/O DIARRHEA] Onset: 09-13-2022 Chronic Other hereditary and degenerative nervous system conditions (1 source) Restless legs syndrome; Translations: [RESTLESS LEGS SYNDROME] Onset: 09-13-2022 Chronic Residual codes; unclassified (15 sources) Obstructive sleep apnea syndrome; Translations: [Obstructive sleep apnea (adult) (pediatric)] Onset: 11-17-2023 11-17-2023 Chronic Residual codes; unclassified (1 source) Acquired absence of other specified parts of digestive tract; Translations: [ACQ ABSENCE OTH PART DIGESTV TRACT] Onset: 09-13-2022 Episodic Residual codes; unclassified (1 source) Acquired absence of both cervix and uterus; Translations: [ACQUIRED ABSENCE BOTH CERVIX AND UTERUS] Onset: 09-13-2022 Episodic Residual codes; unclassified (1 source) Acquired absence of ovaries, unilateral; Translations: [ACQUIRED ABSENCE OVARIES UNILATERAL] Onset: 09-13-2022 Episodic Residual codes; unclassified (1 source) Family history of malignant neoplasm of trachea, bronchus and lung; Translations: [FAM HX MALIG NEOPLSM TRACH BRON LNG] Onset: 09-05-2022 Episodic Residual codes; unclassified (12 sources) Tobacco use and exposure - finding; Translations: [Tobacco use] Onset: 05-22-2024 05-22-2024 Episodic Spondylosis; intervertebral disc disorders; other back problems (20 sources) Cervical spondylosis; Translations: [Other spondylosis with myelopathy, cervical region] Onset: 10-08-2016 11-17-2023 Chronic Substance-related disorders (1 source) Nicotine dependence, cigarettes, uncomplicated; Translations: [NICOTINE DEPEND CIGARETTES UNCOMP] Onset: 09-13-2022 Chronic Past or Other Problems Problem Classification Problem Date Documented Date Episodic/Chronic Immunizations and screening for infectious disease (15 sources) Raised antinuclear antibody; Translations: [Other specified abnormal immunological findings in serum] Onset: 11-17-2023 11-17-2023 Episodic Mood disorders (10 sources) Mood disorders; Translations: [DEPRESSION UNSPECIFIED] Onset: 09-13-2022 05-22-2024 Other aftercare (1 source) manager terminal (current) use of insulin; Translations: [PRISON CURRENT USE OF INSULIN] Onset: 12-18-2021 Episodic Other and unspecified benign neoplasm (15 sources) History of polyp of colon; Translations: [History of colon polyps] Onset: 11-17-2023 11-17-2023 Episodic Other non-traumatic joint disorders (14 sources) Hip pain; Translations: [Pain in right hip] Onset: 11-17-2023 11-17-2023 Episodic Other non-traumatic joint disorders (1 source) Pain in right hip joint; Translations: [Pain in right hip] Onset: 11-17-2023 11-17-2023 Episodic Other nutritional; endocrine; and metabolic disorders (14 sources) Body mass index 30+ - obesity; Translations: [Body mass index (BMI) 32.0-32.9, adult] Onset: 04-05-2024 Resolved: 05-22-2024 04-05-2024 Chronic Other screening for suspected conditions (not mental disorders or infectious disease) (19 sources) Encounter for screening mammogram for malignant neoplasm of breast; Translations: [Patient encounter status] Onset: 08-31-2022 Episodic Other upper respiratory disease (15 sources) Cyst of nasopharynx; Translations: [Other diseases of pharynx] Onset: 10-23-2020 11-17-2023 Episodic Spondylosis; intervertebral disc disorders; other back problems (17 sources) Spinal stenosis in cervical region; Translations: [Spinal stenosis, cervical region] Onset: 11-17-2023 11-17-2023 Episodic Viral infection (15 sources) Herpes simplex; Translations: [Herpesviral infection, unspecified] Onset: 11-17-2023 11-17-2023 Episodic Results Test Name Value Interpretation Reference Range Facility MR Cervical spine WO contras ton 08-10-2024 [place] [address] Magnetic Resonance Report Signed Patient: ESMER BEACH MR#: [id number] : 1970 Acct:[id number] Age/Sex: 54 / F ADM Date: 08/10/24 Loc: MRI Attending Dr: Edgardo Menon M.D. Ordering Physician: Edgardo Menon M.D. Date of Service: 08/10/24 Procedure(s): MR cervical spine wo con Accession Number(s): [id number] cc: Lacy Alberto NP; Edgardo Menon M.D. [place] [id number] Patient Name: ESMER BEACH MRN: [id number] date: 1970 Sex: F Assigned Patient Location: MRI Current Patient Location: MRI Accession/Order Number: [id number] Exam Date: 08/10/2024 13:10 Report Date: 08/10/2024 14:56 At the request of: EDGARDO MENON Procedure: MR cervical spine wo con EXAMINATION: MR cervical spine wo con HISTORY: Cervical Stenosis COMPARISON: No relevant comparison available. TECHNIQUE: A variety of imaging planes and parameters were utilized for visualization of suspected pathology. FINDINGS: CRANIOCERVICAL AREA: Normal foramen magnum with no Chiari malformation. PARASPINAL AREA: Normal with no visible mass. BONES: Normal alignment with no acute fracture or spondylolisthesis. Mild to moderate spondylosis and facet osteoarthropathy most significant C5-C6 CORD: Normal caliber, contour, and signal intensity. CERVICAL DISC LEVELS: C2-C3: Early degenerative disc disease is present without focal protrusion or neural impingement. C3-C4: No significant disc/facet abnormality, spinal stenosis, or foraminal stenosis. C4-C5: No significant disc/facet abnormality, spinal stenosis, or foraminal stenosis. C5-C6: Disc space narrowing and disc desiccation. Mild to moderate diffuse disc/osteophyte complex narrows the central canal to 6.8 mm in AP dimension. No right foraminal stenosis. Mild narrowing of the left neural foramen C6-C7: Early degenerative disc disease is present without focal protrusion or neural impingement. C7-T1:. No significant disc/facet abnormality, spinal stenosis, or foraminal stenosis. MR/MR cervical spine wo con IMPRESSION: Moderate degenerative changes at C5-C6 with central canal and left foraminal stenosis Electronically authenticated by: NAHOMY BUCHANAN Date: 08/10/2024 14:56 Dictated By: Nahomy Buchanan M.D. Signed By: 08/10/24 1459 DD/ [id number] TD/TT: Venetian Blind Worker: [facility] Radiology, Radiologist, MD - 08/10/2024 [place] [address] Magnetic Resonance Report Signed Patient: ESMER BEACH MR#: [id number] : 1970 Acct:[id number] Age/Sex: 54 / F ADM Date: 08/10/24 Loc: MRI Attending Dr: Edgardo Menon M.D. Ordering Physician: Edgardo Menon M.D. Date of Service: 08/10/24 Procedure(s): MR cervical spine wo con Accession Number(s): [id number] cc: Lacy Alberto NP; Edgardo Menon M.D. The [place] [id number] Patient Name: ESMER BEACH MRN: [facility]:[id number] date: 1970 Sex: F Assigned Patient Location: MRI Current Patient Location: MRI Accession/Order Number: [id number] Exam Date: 08/10/2024 13:10 Report Date: 08/10/2024 14:56 At the request of: EDGARDO MENON Procedure: MR cervical spine wo con EXAMINATION: MR cervical spine wo con HISTORY: Cervical Stenosis COMPARISON: No relevant comparison available. TECHNIQUE: A variety of imaging planes and parameters were utilized for visualization of suspected pathology. FINDINGS: CRANIOCERVICAL AREA: Normal foramen magnum with no Chiari malformation. PARASPINAL AREA: Normal with no visible mass. BONES: Normal alignment with no acute fracture or spondylolisthesis. Mild to moderate spondylosis and facet osteoarthropathy most significant C5-C6 CORD: Normal caliber, contour, and signal intensity. CERVICAL DISC LEVELS: C2-C3: Early degenerative disc disease is present without focal protrusion or neural impingement. C3-C4: No significant disc/facet abnormality, spinal stenosis, or foraminal stenosis. C4-C5: No significant disc/facet abnormality, spinal stenosis, or foraminal stenosis. C5-C6: Disc space narrowing and disc desiccation. Mild to moderate diffuse disc/osteophyte complex narrows the central canal to 6.8 mm in AP dimension. No right foraminal stenosis. Mild narrowing of the left neural foramen C6-C7: Early degenerative disc disease is present without focal protrusion or neural impingement. C7-T1:. No significant disc/facet abnormality, spinal stenosis, or foraminal stenosis. MR/MR cervical spine wo con IMPRESSION: Moderate degenerative changes at C5-C6 with central canal and left foraminal stenosis Electronically authenticated by: NAHOMY BUCHANAN Date: 08/10/2024 14:56 Dictated By: Nahomy Buchanan M.D. Signed By: 08/10/24 1459 DD/ 55 TD/TT: Venetian Blind Worker: [facility] Radiology Study observation (narrative) [facility] MR Cervical spine WO contras tOrdered By: Radiologist Radiology on 08-10-2024 [facility] Work Phone: HbA1c (Bld) [Mass fraction]o n 08-06-2024 Interpretation and review of laboratory results Abnormal [facility] - Hematology and Cell countson 08-06-2024 HbA1c (Bld) [Mass fraction] 8.80 % [facility] ALL CBC WITH AUTO DIFFon BASOPHILS ABSOLUTE AUTO 0.1 [facility] Basophils/100 WBC (Bld) 0.6 % 0.2 - 2.0 % [facility] Eosinophils/100 WBC (Bld) 1.7 % 0.9 - 7.0 % [facility] Erythrocyte distribution width (RBC) [Ratio] 13.8 % 11.0 - 15.0 % [facility] Hematocrit (Bld) [Volume fraction] 55.5 % High 36.0 - 48.0 % [facility] Hemoglobin (Bld) [Mass/Vol] 18.7 g/dL High 12.0 - 16.0 g/dL [facility] IMMATURE GRANULOCYTES ABS AUTO 0.03 [facility] Immature granulocytes/100 WBC (Bld) 0.2 % 0.0 - 0.5 % [facility] Interpretation and review of laboratory results Abnormal [facility] LYMPHOCYTES ABSOLUTE AUTO 2.9 [facility] Lymphocytes/100 WBC (Bld) 23.1 % 20.5 - 60.0 % [facility] MCH (RBC) [Entitic mass] 30.6 pg 26.7 - 34.0 pg [facility] MCHC (RBC) [Mass/Vol] 33.7 g/dL 29.9 - 35.2 g/dL [facility] MCV (RBC) [Entitic vol] 90.7 fL 81.0 - 99.0 fL [facility] MONOCYTES ABSOLUTE AUTO 0.6 [facility] Monocytes/100 WBC (Bld) 4.5 % 1.7 - 12.0 % [facility] NEUTROPHILS ABSOLUTE AUTO 8.9 High [facility] Neutrophils/100 WBC (Bld) 69.9 % 43.0 - 75.0 % [facility] Platelet mean volume (Bld) [Entitic vol] 9.2 fL Low 9.5 - 13.5 fL [facility] EO # 0.2 [facility] PLT 235 [facility] RBC 6.12 High [facility] TB WBC 12.7 High [facility] CBC W MANUAL DIFFon 09-10-19 23 ATYPICAL LYMPH # 1.49 103/ul Normal [facility] Comment on above: Performed By: #### C EMANI #### [facility] [address] [place] [address] Dr. Shakira Bahena ATYPICAL LYMPH % 8 % Normal [facility] Comment on above: Performed By: #### C EMANI #### [facility] [address] [place] [address] Dr. Shakira Bahena BAND # 0.0 103/ul Normal 0.0-0.3 [facility] Comment on above: Performed By: #### C EMANI #### [facility] [address] [place] [address] Dr. Shakira Bahena BAND % 0 % Normal 0-5 [facility] Comment on above: Performed By: #### C EMANI #### [facility] [address] [place] [address] Dr. Shakira Bahena BASOM # 0.00 103/ul Normal 0.00-0.10 [facility] Comment on above: Performed By: #### C EMANI #### [facility] [address] [place] [address] Dr. Shkaira Bahena BASOM % 0.0 % Critically low 0.2-2.0 [facility] Comment on above: Performed By: #### C BCANGELA #### [facility] [address] [address] [address] Shakira Bahena BLAST # Normal [facility] Comment on above: Performed By: #### C BCANGELA #### [facility] [address] [address] [address] Shakira Bahena BLAST % Normal [facility] Comment on above: Performed By: #### C BCANGELA #### [facility] [address] [address] [address] Shakira Bahena CORRECTED WBC Normal 4.0-11.0 [facility] Comment on above: Performed By: #### C EMANI #### [facility] [address] [place] [address] Dr. Shakira Bahena EOS # 0.56 103/ul Normal 0.00-0.70 [facility] Comment on above: Performed By: #### C EMANI #### [facility] [address] [place] [address] Dr. Shakira Bahena EOS% 3.0 % Normal 0.9-7.0 [facility] Comment on above: Performed By: #### C EMANI #### [facility] [address] [place] [address] Dr. Shakira Bahena HCT 50.8 % Critically high 36.0-48.0 [facility] Comment on above: Performed By: #### C EMANI #### [facility] [address] [place] [address] Dr. Shakira Bahena HGB 17.7 g/dl Critically high 12.0-16.0 [facility] Comment on above: Performed By: #### C BCANGELA #### [facility] [address] [place] [address] Dr. Shakira Bahena LYMPHM # 1.30 103/ul Normal 1.20-3.80 [facility] Comment on above: Performed By: #### C EMANI #### [facility] [address] [place] [address] Dr. Shakira Bahena LYMPHM% 7.0 % Critically low 20.5-60.0 [facility] Comment on above: Performed By: #### C EMANI #### [facility] [address] [place] [address] Dr. Shakira Bahena MCH 30.7 pg Normal 26.7-34.0 [facility] Comment on above: Performed By: #### C EMANI #### [facility] [address] [place] [address] Dr. Shakira Bahena MCHC 34.8 g/dl Normal 29.9-35.2 [facility] Comment on above: Performed By: #### C EMANI #### [facility] [address] [place] [address] Dr. Shakira Bahena MCV 88.0 fL Normal 81.0-99.0 [facility] Comment on above: Performed By: #### C EMANI #### [facility] [address] [place] [address] Dr. Shakira Bahena METAMYELOCYTE # Normal [facility] Comment on above: Performed By: #### C EMANI #### [facility] [address] [place] [address] Dr. Shakira Bahena METAMYELOCYTE % Normal [facility] Comment on above: Performed By: #### C EMANI #### [facility] [address] [place] [address] Dr. Shakira Bahena MONOM# 0.37 103/ul Normal 0.30-0.80 [facility] Comment on above: Performed By: #### C EMANI #### [facility] [address] [place] [address] Dr. Shakira Bahena MONOM% 2.0 % Normal 1.7-12.0 [facility] Comment on above: Performed By: #### C EMANI #### [facility] [address] [place] [address] Dr. Shakira Bahena MPV 10.1 fL Normal 9.5-13.5 [facility] Comment on above: Performed By: #### C EMANI #### [facility] [address] [place] [address] Dr. Shakira Bahena MYELOCYTE # Normal [facility] Comment on above: Performed By: #### C EMANI #### [facility] [address] [address] [address] Shakira Bahena MYELOCYTE % Normal [facility] Comment on above: Performed By: #### C EMANI #### [facility] [address] [address] [address] Shakira Bahena NRBC Normal [facility] Comment on above: Performed By: #### C EMANI #### [facility] [address] [address] [address] Shakira Bahena PLT 235 103/ul Normal 150-450 [facility] Comment on above: Performed By: #### C EMANI #### [facility] [address] [address] [address] Shakira Bahena RBC 5.77 106/ul Critically high 4.20-5.40 [facility] Comment on above: Performed By: #### C EMANI #### [facility] [address] [place] [address] Dr. Shakira Bahena RDW 14.5 % Normal 11.0-15.0 [facility] Comment on above: Performed By: #### C EMANI #### [facility] [address] [place] [address] Dr. Shakira Bahena SEG # 14.88 103/ul Critically high 1.40-6.50 [facility] Comment on above: Performed By: #### C EMANI #### [facility] [address] [place] [address] Dr. Shakira Bahena SEG % 80.0 % Critically high 43.0-75.0 [facility] Comment on above: Performed By: #### C EMANI #### [facility] [address] [place] [address] Dr. Shakira Bahena WBC 18.6 103/ul Critically high 4.0-11.0 [facility] Comment on above: Performed By: #### C EMANI #### [facility] [address] [place] [address] ABD/PELVIS WO CONon [...] CASSIE BACK Date: 2022-09-09 21:39 Normal [facility] ER URINE PROFILEon 3 Bilirubin Ql (U) Negative Normal NEGATIVE [facility] Comment on above: Performed By: #### U MICRO, ERUR #### [facility] [address] [address] [address] Shakira Bahena Clarity (U) CLEAR Normal CLEAR [facility] Comment on above: Performed By: #### U MICRO, ERUR #### [facility] [address] [address] [address] Shakira Bahena Color (U) RED Abnormal YELLOW [facility] Comment on above: Performed By: #### U MICRO, ERUR #### [facility] [address] [address] [address] Shakira FORDE A micrscopic examination will be performed if indicated. Normal [facility] Comment on above: Performed By: #### U MICRO, ERUR #### [facility] [address] [address] [address] Shakira Bahena Glucose Ql (U) Negative Normal NEGATIVE [facility] Comment on above: Performed By: #### U MICRO, ERUR #### [facility] [address] [address] [address] Shakira Bahena Hemoglobin Ql (U) LARGE Abnormal NEGATIVE [facility] Comment on above: Performed By: #### U MICRO, ERUR #### [facility] [address] [place] [address] Dr. Shakira Bahena Ketones Ql (U) Negative Normal NEGATIVE [facility] Comment on above: Performed By: #### U MICRO, ERUR #### [facility] [address] [address] [address] Shakira Bahena LEUKOCYTES TRACE Abnormal NEGATIVE [facility] Comment on above: Performed By: #### U MICRO, ERUR #### [facility] [address] [place] [address] Dr. Shakira Bahena Nitrite Ql (U) Negative Normal NEGATIVE [facility] Comment on above: Performed By: #### U MICRO, ERUR #### [facility] [address] [address] [address] Shakira Bahena pH (U) 5.5 [pH] Normal 5-9 [facility] Comment on above: Performed By: #### U MICRO, ERUR #### [facility] [address] [address] [address] Shakira Bahena Protein (U) [Mass/Vol] 100 mg/dL Abnormal NEGATIVE/ TRACE [facility] Comment on above: Performed By: #### U MICRO, ERUR #### [facility] [address] [address] [address] Shakira Bahena SPEC GRAVITY 1.010 Normal 1.005-<=1.025 [facility] Comment on above: Performed By: #### U MICRO, ERUR #### [facility] [address] [place] [address] Dr. Shakira Bahena UR MICRO IND INDICATED Normal [facility] Comment on above: Performed By: #### U MICRO, ERUR #### [facility] [address] [place] [address] Dr. Shakira Bahena Urobilinogen Qn (U) 1.0 {Navin'U}/dL Normal 0.2 - 1. 0 [facility] Comment on above: Performed By: #### U MICRO, ERUR #### [facility] [address] [place] [address] Dr. Shakira Bahena LACTATE/LACTIC ACIDon 2022 Lactate [Moles/Vol] 0.7 mmol/L Normal 0.4-2.0 [facility] Comment on above: Performed By: #### L ACT #### [facility] [address] [place] [address] Dr. Shakira Bahena PROF 14(COMP METB)on 023 Albumin [Mass/Vol] 3.5 g/dL Normal 3.4-5.0 [facility] Comment on above: Performed By: #### P T, PTT #### [facility] [address] [place] [address] Dr. Shakira Bahena Albumin/Globulin [Mass ratio] 1.1 {ratio} Normal [facility] Comment on above: Performed By: #### P T, PTT #### [facility] [address] [place] [address] Dr. Shakira Bahena ALP [Catalytic activity/Vol] 104 U/L Normal 46-116 [facility] Comment on above: Performed By: #### P T, PTT #### [facility] [address] [place] [address] Dr. Shakira Bahena ALT [Catalytic activity/Vol] 20 U/L Normal 14-59 [facility] Comment on above: Performed By: #### P T, PTT #### [facility] [address] [address] [address] Shakira Bahena Anion gap [Moles/Vol] 9.9 mmol/L Normal [facility] Comment on above: Performed By: #### P T, PTT #### [facility] [address] [address] [address] Shakira Bahena AST [Catalytic activity/Vol] 24 U/L Normal 15-37 [facility] Comment on above: Performed By: #### P T, PTT #### [facility] [address] [address] [address] Shakira Bahena Bilirubin [Mass/Vol] 0.4 mg/dL Normal 0.2-1.0 [facility] Comment on above: Performed By: #### P T, PTT #### [facility] [address] [place] [address] Dr. Shakira Bahena Calcium [Mass/Vol] 8.6 mg/dL Normal 8.5-10.1 [facility] Comment on above: Performed By: #### P T, PTT #### [facility] [address] [address] [address] Shakira Bahena Chloride [Moles/Vol] 106 mmol/L Normal 98-107 [facility] Comment on above: Performed By: #### P T, PTT #### [facility] [address] [place] [address] Dr. Shakira Bahena CO2 [Moles/Vol] 26.3 mmol/L Normal 21.0-32.0 [facility] Comment on above: Performed By: #### P T, PTT #### [facility] [address] [address] [address] Shakira Bahena Creatinine [Mass/Vol] 0.60 mg/dL Normal 0.55-1.02 [facility] Comment on above: Performed By: #### P T, PTT #### [facility] [address] [place] [address] Dr. Shakira Bahena EGFR-AF CITIZEN [place] >60 Normal >=60 [facility] Comment on above: Performed By: #### P T, PTT #### [facility] [address] [address] [address] Shakira Bahena EGFR-NON AF CITIZEN OF [place] >60 Normal >=60 [facility] Comment on above: Performed By: #### P T, PTT #### [facility] [address] [address] [address] Shakira Bahena Globulin (S) [Mass/Vol] 3.2 g/dL Normal [facility] Comment on above: Performed By: #### P T, PTT #### [facility] [address] [place] [address] Dr. Shakira Bahena Glucose [Mass/Vol] 105 mg/dL Normal 74-106 [facility] Comment on above: Performed By: #### P T, PTT #### [facility] [address] [place] [address] Dr. Shakira Bahena Potassium [Moles/Vol] 4.2 mmol/L Normal 3.5-5.1 [facility] Comment on above: Performed By: #### P T, PTT #### [facility] [address] [place] [address] Dr. Shakira Bahena Protein [Mass/Vol] 6.7 g/dL Normal 6.4-8.2 [facility] Comment on above: Performed By: #### P T, PTT #### [facility] [address] [place] [address] Dr. Shakira Bahena Sodium [Moles/Vol] 138 mmol/L Normal 136-145 [facility] Comment on above: Performed By: #### P T, PTT #### [facility] [address] [place] [address] Dr. Shakira Bahena Urea nitrogen [Mass/Vol] 11.0 mg/dL Normal 7.0-18.0 [facility] Comment on above: Performed By: #### P T, PTT #### [facility] [address] [place] [address] Dr. Shakira Bahena Urea nitrogen/Creatinine [Mass ratio] 18.3 mg/mg Normal [facility] Comment on above: Performed By: #### P T, PTT #### [facility] [address] [place] [address] Dr. Shakira Bahena PROTIMEon 09-09-2022 INR Coag (PPP) [Relative time] 0.93 {INR} Normal [facility] Comment on above: Performed By: #### P T, PTT #### [facility] [address] [place] [address] Dr. Shakira Bahena INR GUIDELINES SEE BELOW Normal [facility] Comment on above: Result Comment: SHANA RED INR: 2.0 - 3.0 CONDITIONS NOT LISTED BELOW 2.5 - 3.5 FOR PROSTHETIC HEART VALVE REPLACEMENT 2.5 - 3.5 RECURRENT THROMBOSIS Performed By: #### P T, PTT #### [facility] [address] [place] [address] Dr. Shakira Bahena PT Coag (PPP) [Time] 9.9 s Normal 9.0-11.6 [facility] Comment on above: Performed By: #### P T, PTT #### [facility] [address] [place] [address] Dr. Shakira Bahena PTTon 09-09-2022 aPTT Coag (Bld) [Time] 28.0 s Normal 22.3-36.2 [facility] Comment on above: Performed By: #### P T, PTT #### [facility] [address] [place] [address] Dr. Shakira Bahena URINE MICROSCOPIC ONLYon BACTERIA NONE SEEN Normal NONE SEEN [facility] Comment on above: Performed By: #### U MICRO, ERUR #### [facility] [address] [place] [address] Dr. Shakira Bahena Bacteria identified Cx Nom (U) NOT INDICATED Normal [facility] Comment on above: Performed By: #### U MICRO, ERUR #### [facility] [address] [place] [address] Dr. Shakira Bahena CAST NONE SEEN Normal NONE SEEN [facility] Comment on above: Performed By: #### U MICRO, ERUR #### [facility] [address] [place] [address] Dr. Shakira Bahena Crystals LM Nom (Urine sed) NONE SEEN Normal NONE SEEN [facility] Comment on above: Performed By: #### U MICRO, ERUR #### [facility] [address] [address] [address] Shakira Bahena Epithelial cells LM Ql (Urine sed) FEW Abnormal NONE SEEN /RARE [facility] Comment on above: Performed By: #### U MICRO, ERUR #### [facility] [address] [address] [address] Shakira Bahena MUCOUS NONE SEEN Normal NONE SEEN [facility] Comment on above: Performed By: #### U MICRO, ERUR #### [facility] [address] [address] [address] Shakira Bahena RBC (U) [#/Vol] /uL Abnormal 0-2 [facility] Comment on above: Performed By: #### U MICRO, ERUR #### [facility] [address] [address] [address] Shakira Bahena WBC 2-5 Abnormal NONE SEEN [facility] Comment on above: Performed By: #### U MICRO, ERUR #### [facility] [address] [address] [address] Shakira Bahena MG MAMM SCREEN 3D ERLINDA CADon 08-31-2022 MG MAMM SCREEN 3D ERLINDA CAD Patient: ESMER BEACH Exam Date: 08/31/2022 : 1970 Gender:F Ordering : [facility] Admission #: [id number] Family : Order #: [id number] CLICK HERE TO VIEW EXAM RADIOLOGY REPORT [...] lung cancer at age 64. LOCATION: [facility] BREAST COMPOSITION: Scattered areas fibroglandular density. FINDINGS: [...] MD on 08/31/2022 at 14:10 Normal [facility] CBC AUTO DIFFon 12-16-2021 BASO # 0.1 103/ul Normal 0.0-0.1 [facility] Comment on above: Performed By: #### C BC #### [facility] [address] [place] [address] Dr. Shakira Bahena Basophils/100 WBC (Bld) 0.6 % Normal 0.2-2.0 [facility] Comment on above: Performed By: #### C BC #### [facility] [address] [place] [address] Dr. Shakira Bahena EO # 0.3 103/ul Normal 0.0-0.7 [facility] Comment on above: Performed By: #### C BC #### [facility] [address] [place] [address] Dr. Shakira Bahena Eosinophils/100 WBC (Bld) 1.7 % Normal 0.9-7.0 [facility] Comment on above: Performed By: #### C BC #### [facility] [address] [place] [address] Dr. Shakira Bahena Erythrocyte distribution width (RBC) [Ratio] 15.6 % Critically high 11.0-15.0 [facility] Comment on above: Performed By: #### C BC #### [facility] [address] [place] [address] Dr. Shakira Bahena Hematocrit (Bld) [Volume fraction] 50.7 % Critically high 36.0-48.0 [facility] Comment on above: Performed By: #### C BC #### [facility] [address] [place] [address] Dr. Shakira Bahena Hemoglobin (Bld) [Mass/Vol] 16.0 g/dL Normal 12.0-16.0 [facility] Comment on above: Performed By: #### C BC #### [facility] [address] [place] [address] Dr. Shakira Bahena IG # 0.06 10e3/ul Critically high 0.00-0.03 [facility] Comment on above: Performed By: #### C BC #### [facility] [address] [place] [address] Dr. Shakira Bahena IG % 0.4 % Normal 0.0-0.5 [facility] Comment on above: Performed By: #### C BC #### [facility] [address] [place] [address] Dr. Shakira Bahena LYMPH # 3.7 103/ul Normal 1.2-3.8 [facility] Comment on above: Performed By: #### C BC #### [facility] [address] [place] [address] Dr. Shakira Bahena Lymphocytes/100 WBC (Bld) 23.9 % Normal 20.5-60.0 [facility] Comment on above: Performed By: #### C BC #### [facility] [address] [place] [address] Dr. Shakira Bahena MANUAL DIFF REQ NO Normal [facility] Comment on above: Performed By: #### C BC #### [facility] [address] [place] [address] Dr. Shakira Bahean MCH (RBC) [Entitic mass] 28.7 pg Normal 26.7-34.0 [facility] Comment on above: Performed By: #### C BC #### [facility] [address] [place] [address] Dr. Shakira Bahena MCHC (RBC) [Mass/Vol] 31.6 g/dL Normal 29.9-35.2 [facility] Comment on above: Performed By: #### C BC #### [facility] [address] [place] [address] Dr. Shakira Bahena MCV (RBC) [Entitic vol] 90.9 fL Normal 81.0-99.0 [facility] Comment on above: Performed By: #### C BC #### [facility] [address] [address] [address] Shakira Bahena MONO # 0.7 103/ul Normal 0.3-0.8 [facility] Comment on above: Performed By: #### C BC #### [facility] [address] [address] [address] Shakira Bahena Monocytes/100 WBC (Bld) 4.5 % Normal 1.7-12.0 [facility] Comment on above: Performed By: #### C BC #### [facility] [address] [place] [address] Dr. Shakira Bahena NEUT # 10.8 103/ul Critically high 1.4-6.5 [facility] Comment on above: Performed By: #### C BC #### [facility] [address] [place] [address] Dr. Shakira Bahena Neutrophils/100 WBC (Bld) 68.9 % Normal 43.0-75.0 [facility] Comment on above: Performed By: #### C BC #### [facility] [address] [place] [address] Dr. Shakira Bahena Platelet mean volume (Bld) [Entitic vol] 10.0 fL Normal 9.5-13.5 [facility] Comment on above: Performed By: #### C BC #### [facility] [address] [place] [address] Dr. Shakira Bahena PLT 309 103/ul Normal 150-450 [facility] Comment on above: Performed By: #### C BC #### [facility] [address] [place] [address] Dr. Shakira Bahena RBC 5.58 106/ul Critically high 4.20-5.40 [facility] Comment on above: Performed By: #### C BC #### [facility] [address] [place] [address] Dr. Shakira Bahena WBC 15.6 103/ul Critically high 4.0-11.0 [facility] Comment on above: Performed By: #### C BC #### [facility] [address] [address] [address] Shakira Bahena GLYCOHEMOGLOBIN A1Con 2021 ADA RECOMMENDATION SEE BELOW Normal [facility] Comment on above: Result Comment: ADA RECOMMENDED LIMIT 4.0 - 6.0 ADA THERAPEUTIC TARGET < 7.0 ACTION SUGGESTED > 7.0 Performed By: #### A 1C #### [facility] [address] [address] [address] Shakira Bahena Glucose [Mass/Vol] 120 mg/dL Normal [facility] Comment on above: Performed By: #### A 1C #### [facility] [address] [place] [address] Dr. Shakira Bahena HbA1c (Bld) [Mass fraction] 5.8 % Normal 4.5-6.2 [facility] Comment on above: Performed By: #### A 1C #### [facility] [address] [place] [address] Dr. Shakira Bahena LIPID PROFILEon 12-16-2021 CHOL-HDL RATIO NORM SEE BELOW Normal [facility] [facility] Comment on above: Result Comment: 3.3 - 4.4 LOW RISK 4.4 - 7.1 AVERAGE RISK 7.1 - 11.0 MODERATE RISK >11.0 HIGH RISK Performed By: #### P T, PTT #### [facility] [address] [place] [address] Dr. Shakira Bahena Cholesterol [Mass/Vol] 149 mg/dL Normal <=200 [facility] Comment on above: Performed By: #### P T, PTT #### [facility] [address] [place] [address] Dr. Shakira Bahena Cholesterol in HDL [Mass/Vol] 28 mg/dL Critically low 40-60 [facility] Comment on above: Performed By: #### P T, PTT #### [facility] [address] [place] [address] Dr. Shakira Bahena Cholesterol in LDL [Mass/Vol] 80.6 mg/dL Normal [facility] Comment on above: Performed By: #### P T, PTT #### [facility] [address] [place] [address] Dr. Shakira Bahena Cholesterol.total/Ch olesterol in HDL [Mass ratio] 5.3 {ratio} Normal [facility] Comment on above: Performed By: #### P T, PTT #### [facility] [address] [address] [address] Shakira Bahena HDL NORMAL > or = 60 mg/dl - LO W CARDIOVASCULAR RISK <40 mg/dl - HIGH CARDIOVASCULAR RISK Normal [facility] Comment on above: Performed By: #### P T, PTT #### [facility] [address] [address] [address] Shakira Bahena LDL CALC NORMAL SEE BELOW Normal [facility] [place] [facility] Comment on above: Result Comment: <100 mg/dl OPTIMAL 100 - 129 mg/dl NEAR OR ABOVE OPTIMAL 130 - 159 mg/dl BORDERLINE HIGH 160 - 189 mg/dl HIGH >190 mg/dl VERY HIGH Performed By: #### P T, PTT #### [facility] [address] [address] [address] Shakira Bahena Triglyceride [Mass/Vol] 202 mg/dL Critically high <=150 [facility] Comment on above: Performed By: #### P T, PTT #### [facility] [address] [address] [address] Shakira Bahena VLDL CALC 40.4 mg/dL Normal [facility] Comment on above: Performed By: #### P T, PTT #### [facility] [address] [place] [address] Dr. Shakira Bahena MICROALBUMIN, RAND URon 12-02 mALB <1.3 Normal <=30.0 [facility] Comment on above: Performed By: #### P T, PTT #### [facility] [address] [address] [address] Shakira Bahena PROF 14(COMP METB)on 022 Albumin [Mass/Vol] 3.5 g/dL Normal 3.4-5.0 [facility] Comment on above: Performed By: #### P T, PTT #### [facility] [address] [place] [address] Dr. Shakira Bahena Albumin/Globulin [Mass ratio] 1.0 {ratio} Normal [facility] Comment on above: Performed By: #### P T, PTT #### [facility] [address] [place] [address] Dr. Shakira Bahena ALP [Catalytic activity/Vol] 103 U/L Normal 46-116 [facility] Comment on above: Performed By: #### P T, PTT #### [facility] [address] [place] [address] Dr. Shakira Bahena ALT [Catalytic activity/Vol] 19 U/L Normal 14-59 [facility] Comment on above: Performed By: #### P T, PTT #### [facility] [address] [place] [address] Dr. Shakira Bahena Anion gap [Moles/Vol] 14.8 mmol/L Normal [facility] Comment on above: Performed By: #### P T, PTT #### [facility] [address] [place] [address] Dr. Shakira Bahena AST [Catalytic activity/Vol] 10 U/L Critically low 15-37 [facility] Comment on above: Performed By: #### P T, PTT #### [facility] [address] [place] [address] Dr. Shakira Bahena Bilirubin [Mass/Vol] 0.3 mg/dL Normal 0.2-1.0 [facility] Comment on above: Performed By: #### P T, PTT #### [facility] [address] [place] [address] Dr. Shakira Bahena Calcium [Mass/Vol] 8.6 mg/dL Normal 8.5-10.1 [facility] Comment on above: Performed By: #### P T, PTT #### [facility] [address] [place] [address] Dr. Shakira Bahena Chloride [Moles/Vol] 107 mmol/L Normal 98-107 [facility] Comment on above: Performed By: #### P T, PTT #### [facility] [address] [place] [address] Dr. Shakira Bahena CO2 [Moles/Vol] 23.1 mmol/L Normal 21.0-32.0 [facility] Comment on above: Performed By: #### P T, PTT #### [facility] [address] [address] [address] Shakira Bahena Creatinine [Mass/Vol] 0.79 mg/dL Normal 0.55-1.02 [facility] Comment on above: Performed By: #### P T, PTT #### [facility] [address] [address] [address] Shakira Bahena EGFR-AF CITIZEN OF [place] >60 Normal >=60 [facility] Comment on above: Performed By: #### P T, PTT #### [facility] [address] [address] [address] Shakira Bahena EGFR-NON AF CITIZEN OF [place] >60 Normal >=60 [facility] Comment on above: Performed By: #### P T, PTT #### [facility] [address] [place] [address] Dr. Shakira Bahena Globulin (S) [Mass/Vol] 3.4 g/dL Normal [facility] Comment on above: Performed By: #### P T, PTT #### [facility] [address] [address] [address] Shakira Bahena Glucose [Mass/Vol] 157 mg/dL Critically high 74-106 [facility] Comment on above: Performed By: #### P T, PTT #### [facility] [address] [address] [address] Shakira Bahena Potassium [Moles/Vol] 3.9 mmol/L Normal 3.5-5.1 [facility] Comment on above: Performed By: #### P T, PTT #### [facility] [address] [address] [address] Shakira Bahena Protein [Mass/Vol] 6.9 g/dL Normal 6.4-8.2 [facility] Comment on above: Performed By: #### P T, PTT #### [facility] [address] [address] [address] Shakira Bahena Sodium [Moles/Vol] 141 mmol/L Normal 136-145 [facility] Comment on above: Performed By: #### P T, PTT #### [facility] [address] [place] [address] Dr. Shakira Bahena Urea nitrogen [Mass/Vol] 13.0 mg/dL Normal 7.0-18.0 [facility] Comment on above: Performed By: #### P T, PTT #### [facility] [address] [place] [address] Dr. Shakira Bahena Urea nitrogen/Creatinine [Mass ratio] 16.5 mg/mg Normal [facility] Comment on above: Performed By: #### P T, PTT #### [facility] [address] [place] [address] Dr. Shakira Bahena UA RANDOM W/MICROSCOPICon BACTERIA NONE SEEN Normal NONE SEEN [facility] Comment on above: Performed By: #### P T, PTT #### [facility] [address] [place] [address] Dr. Shakira Bahena Bilirubin Ql (U) Negative Normal NEGATIVE [facility] Comment on above: Performed By: #### P T, PTT #### [facility] [address] [place] [address] Dr. Shakira Bahena CAST NONE SEEN Normal NONE SEEN [facility] Comment on above: Performed By: #### P T, PTT #### [facility] [address] [place] [address] Dr. Shakira Bahena Clarity (U) CLEAR Normal CLEAR [facility] Comment on above: Performed By: #### P T, PTT #### [facility] [address] [place] [address] Dr. Shakira Bahena Color (U) LT. YELLOW Normal YELLOW [facility] Comment on above: Performed By: #### P T, PTT #### [facility] [address] [place] [address] Dr. Shakira Bahena Crystals LM Nom (Urine sed) NONE SEEN Normal NONE SEEN [facility] Comment on above: Performed By: #### P T, PTT #### [facility] [address] [place] [address] Dr. Shakira Bahena Epithelial cells LM Ql (Urine sed) RARE Normal NONE SEEN /RARE [facility] Comment on above: Performed By: #### P T, PTT #### [facility] [address] [place] [address] Dr. Shakira Bahena Glucose Ql (U) 100 mg/dl Abnormal NEGATIVE [facility] Comment on above: Performed By: #### P T, PTT #### [facility] [address] [place] [address] Dr. Shakira Bahena Hemoglobin Ql (U) Negative Normal NEGATIVE [facility] Comment on above: Performed By: #### P T, PTT #### [facility] [address] [place] [address] Dr. Shakira Bahena Ketones Ql (U) Negative Normal NEGATIVE [facility] Comment on above: Performed By: #### P T, PTT #### [facility] [address] [place] [address] Dr. Shakira Bahena LEUKOCYTES Negative Normal NEGATIVE [facility] Comment on above: Performed By: #### P T, PTT #### [facility] [address] [place] [address] Dr. Shakira Bahena MUCOUS NONE SEEN Normal NONE SEEN [facility] Comment on above: Performed By: #### P T, PTT #### [facility] [address] [place] [address] Dr. Shakira Bahena Nitrite Ql (U) Negative Normal NEGATIVE [facility] Comment on above: Performed By: #### P T, PTT #### [facility] [address] [place] [address] Dr. Shakira Bahena pH (U) 6.0 [pH] Normal 5-9 [facility] Comment on above: Performed By: #### P T, PTT #### [facility] [address] [place] [address] Dr. Shakira Bahena RBC 0-2 Normal 0-2 [facility] Comment on above: Performed By: #### P T, PTT #### [facility] [address] [place] [address] Dr. Shakira Bahena SPEC GRAVITY 1.010 Normal 1.005-<=1.025 [facility] [place] [facility] Comment on above: Performed By: #### P T, PTT #### [facility] [address] [address] [address] Shakira Bahena UA PROTEIN Negative Normal NEGATIVE/ TRACE [facility] Comment on above: Performed By: #### P T, PTT #### [facility] [address] [address] [address] Shakira Bahena Urobilinogen Qn (U) 0.2 {Navin'U}/dL Normal 0.2 - 1. 0 [facility] Comment on above: Performed By: #### P T, PTT #### [facility] [address] [place] [address] Dr. Shakira Bahena WBC NONE SEEN Normal NONE SEEN [facility] Comment on above: Performed By: #### P T, PTT #### [facility] [address] [place] [address] Dr. Shakira Bahena LUMBAR SPINE 4 OR 5 [facility] LUMBAR SPINE 4 OR 5 [facility] Department of Radiology [address] [place] [id number] ======== Patient Name: E[place]ER [place] : 1970 Sex: F Age: Race: White Pt. Location: Patient Status: D Ordered Date: 01/18/2020 1:45:00 PM Completed Date: 01/18/2020 02:04 PM Requesting Provider: RICARDO JOSEPH Attending Provider: RICARDO JOSEPH Report Copy To: Signs & Symptoms: M48.061 Spinal stenosis, lumbar region without neurogenic ignacio I10 History: Jackson Comments: Views (X-RAY, LUMBAR SPINE): AP, Lateral, L5-S1 Spot, Flexion, Extension , Weight Bearing?: Y Exam: LUMBAR SPINE 4 OR 5 VWS ======== Addendum Begins Addendum: Lumbar spine AP, lateral, [...] pathology or evidence of subluxation Electronically signed: Amla Lopez. Transcribed by: [email or web address], User Resident: Electronically Signed by: HUI MEAD @ 01/30/2020 11:[address] [facility] Comment on above: Order Comment: Views (X-RAY, LUMBAR SPINE): AP, Lateral, L5-S1 Spot, Flexion, Extension , Weight Bearing?: Y Remote CBCDIF (for [facility] use o nly)on 01-03-2019 Abs Baso 0.05 k/uL Normal 0.00-0.10 [facility] Abs [place] 0.90 k/uL High 0.00-0.86 [facility] Abs Neut 12.73 k/uL High 1.45-7.50 [facility] Basophils/100 WBC (Bld) 0.3 % Normal [facility] Eosinophils (Bld) [#/Vol] 0.27 10*3/uL Normal 0.00-0.45 [facility] Eosinophils/100 WBC (Bld) 1.5 % Normal [facility] Erythrocyte distribution width (RBC) [Ratio] 15.0 % Normal 11.5-15.0 [facility] Hematocrit (Bld) [Volume fraction] 46.9 % High 36.0-46.0 [facility] Hemoglobin (Bld) [Mass/Vol] 16.1 g/dL High 11.5-15.5 [facility] Lymphocytes (Bld) [#/Vol] 3.51 10*3/uL Normal 1.00-4.00 [facility] Lymphocytes/100 WBC (Bld) 20.1 % Normal [facility] MCH (RBC) [Entitic mass] 30.0 pG Normal 26.0-34.0 [facility] MCHC (RBC) [Mass/Vol] 34.3 g/dL Normal 30.5-36.0 [facility] MCV (RBC) [Entitic vol] 87.3 fL Normal 80.0-100.0 [facility] Monocytes/100 WBC (Bld) 5.2 % Normal [facility] Neutrophils/100 WBC (Bld) 72.9 % Normal [facility] Platelet mean volume (Bld) [Entitic vol] 9.4 fL Normal 9.0-12.7 [facility] Platelets (Bld) [#/Vol] 308 10*3/uL Normal 150-400 [facility] RBC (Bld) [#/Vol] 5.37 10*6/uL High 3.90-5.20 [facility] WBC (Bld) [#/Vol] 17.46 10*3/uL High 3.70-11.00 [facility] CNOVSPon 07-13-2018 CNOVSP Visit (SP) Office ([facility]) [place] ([id number]) 1970 F Date Time Provider Department 07/13/18 [...] once daily. INCRUSE ELLIPTA 62.5 mcg/actuation inhaler oxyCODONE-acetaminophe n (PERCOCET) 5-325 mg tablet lisinopril (ZESTRIL, PRINIVIL) 5 mg tablet umeclidinium-vilantero l (ANORO ELLIPTA) 62.5-25 mcg/actuation inhaler Inhale 1 Inhalation as instructed once daily. topiramate (TOPAMAX) 50 mg tablet Take 50 mg by mouth twice daily. No current facility-administered medications for this visit. ALLERGIES Allergen Reactions - Latex Itching - Pegademase Bovine Other: See Comments headache - Poractant Tianna Swelling - Wheat GI Upset Constipation REVIEW [...] [facility] USE) Vanessa Espinosa MD Referring Provider: LACY ALBERTO ([facility]) [[id number]] Allergies As of Date: 07/13/2018 Noted Allergy Reaction LATEX 9 - Itching PEGADEMASE BOVINE 11/04/2016 14 - Other: See Comments Comments: headache PORACTANT TIANNA 11/04/2016 7 - Swelling WHEAT 11/04/2016 8 - GI Upset Comments: Constipation Date Reviewed: 07/13/2018 Reviewed by: Isaura Flores - Fully Assessed Reason for Visit: Leukocytosis [Other] Cmt: follow up Primary Visit Diagnosis:Leukocytosis , unspecified type [D72.829] Order(s):CBC + DIFF (FOR REMOTE [facility] USE) [SQRCBCDF] Order #: [id number] STANDING Follow-up and Disposition History Recorded Prescriptions [...] mouth once yang* INCRUSE ELLIPTA 62.5 MCG/ACTU* OXYCODONE-ACETAMINOPHE N 5 MG-* LISINOPRIL 5 MG TABLET UMECLIDINIUM 62.5 MCG-VILANTE* Inhale 1 Inhalation as instru* TOPIRAMATE 50 MG TABLET Take 50 mg by mouth twice yang* Problem List As Of Date 07/13/2018 Noted Resolved Leukocytosis [D72.829] INVALID FOR* Coronary artery disease involving [place] heart *INVALID FOR* Diabetes mellitus (HCC) [E11.9] INVALID FOR* Psychiatric disorder [F99] INVALID FOR* Encounter Status:Closed by VANESSA ESPINOSA MD on 07/13/18 Normal [facility] PROGRESSon 07-13-2018 PROGRESS HNO ID: [id number] Author: Vanessa Espinosa Service: (none) Author Type: [...] once daily. INCRUSE ELLIPTA 62.5 mcg/actuation inhaler oxyCODONE-acetaminophe n (PERCOCET) 5-325 mg tablet lisinopril (ZESTRIL, PRINIVIL) 5 mg tablet umeclidinium-vilantero l (ANORO ELLIPTA) 62.5-25 mcg/actuation inhaler Inhale 1 Inhalation as instructed once daily. topiramate (TOPAMAX) 50 mg tablet Take 50 mg by mouth twice daily. No current facility-administered medications for this visit. ALLERGIES Allergen Reactions - Latex Itching - Pegademase Bovine Other: See Comments headache - Poractant Tianna Swelling - Wheat GI Upset Constipation REVIEW [...] CBC + DIFF (FOR REMOTE [facility] USE) Vanessa Espinosa MD Normal [facility] Remote CBCDIF (for [facility] use o nly)on 07-13-2018 Abs Baso 0.04 k/uL Normal 0.00-0.10 [facility] Abs [place] 0.82 k/uL Normal 0.00-0.86 [facility] Abs Neut 14.68 k/uL High 1.45-7.50 [facility] Basophils/100 WBC (Bld) 0.2 % Normal [facility] Eosinophils (Bld) [#/Vol] 0.15 10*3/uL Normal 0.00-0.45 [facility] Eosinophils/100 WBC (Bld) 0.8 % Normal [facility] Erythrocyte distribution width (RBC) [Ratio] 14.5 % Normal 11.5-15.0 [facility] Hematocrit (Bld) [Volume fraction] 47.2 % High 36.0-46.0 [facility] Hemoglobin (Bld) [Mass/Vol] 15.8 g/dL High 11.5-15.5 [facility] Lymphocytes (Bld) [#/Vol] 3.48 10*3/uL Normal 1.00-4.00 [facility] Lymphocytes/100 WBC (Bld) 18.2 % Normal [facility] MCH (RBC) [Entitic mass] 29.4 pG Normal 26.0-34.0 [facility] MCHC (RBC) [Mass/Vol] 33.5 g/dL Normal 30.5-36.0 [facility] MCV (RBC) [Entitic vol] 87.9 fL Normal 80.0-100.0 [facility] Monocytes/100 WBC (Bld) 4.3 % Normal [facility] Neutrophils/100 WBC (Bld) 76.5 % Normal [facility] Platelet mean volume (Bld) [Entitic vol] 9.3 fL Normal 9.0-12.7 [facility] Platelets (Bld) [#/Vol] 274 10*3/uL Normal 150-400 [facility] RBC (Bld) [#/Vol] 5.37 10*6/uL High 3.90-5.20 [facility] WBC (Bld) [#/Vol] 19.17 10*3/uL High 3.70-11.00 [facility] BCR-ABL Qualitativeon 2017 BCR-ABL Qualitative (NOTE) Normal [facility] Comment on above: Result Comment: [facility] se [facility] report, Performed By: #### C ALArlene, BCRQL #### [facility] [address], [place] [id number] Basic Metabolic Panlon 06-15 Anion gap [Moles/Vol] 12 mmol/L Normal 9-18 [facility] Comment on above: Performed By: #### Rosemarie AK2, BMP, HFP, WSR #### [facility] [address] [place], [place] [address] Calcium [Mass/Vol] 9.4 mg/dL Normal 8.5-10.2 [facility] Comment on above: Performed By: #### Rosemarie AK2, BMP, HFP, WSR #### [facility] [address] [place], [place] [address] Chloride [Moles/Vol] 108 mmol/L High 97-105 [facility] Comment on above: Performed By: #### Rosemarie AK2, BMP, HFP, WSR #### [facility] [address] [place], [place] [address] CO2 [Moles/Vol] 21 mmol/L Low 22-30 [facility] Comment on above: Performed By: #### Rosemarie AK2, BMP, HFP, WSR #### [facility] [address] [place], [place] [address] Creatinine [Mass/Vol] 0.65 mg/dL Normal 0.58-0.96 [facility] Comment on above: Performed By: #### Rosemarie JOHNSON, YONI, MEDARDO, WSR #### [facility] [address] [place], [place] [id number] eGFR- Amer. >60 Normal [facility] Comment on above: Performed By: #### Rosemarie JOHNSON, YONI, MEDARDO, WSR #### [facility] [address] [place], [place] [address] GFR/1.73 sq M predicted among non-blacks MDRD (S/P/Bld) [Vol rate/Area] mL/min/{1.73_m2} Normal [facility] Comment on above: Result Comment: eGFR [...] By: #### YONI RUIZ, MEDARDO, WSR #### [facility] [address] [place], [place] [id number] Glucose [Mass/Vol] 187 mg/dL High 74-99 [facility] Comment on above: Result Comment: The [place] [employer] (ADA) provides guidance for cutoff [...] Standards of Medical Care in Diabetes 2016, [place] [employer]. Diabetes Care. 2016.39(Suppl 1). Performed By: #### Rosemarie AKYONI Irene, HFP, WSR #### [facility] [address], [place] [address] Potassium [Moles/Vol] 4.7 mmol/L Normal 3.7-5.1 [facility] Comment on above: Performed By: #### YONI RUIZ, HFP, WSR #### [facility] [address] [place], [place] [address] Sodium [Moles/Vol] 141 mmol/L Normal 136-144 [facility] Comment on above: Performed By: #### Rosemarie JOHNSON, YONI, HFP, WSR #### [id number] [place], [place] [address] Urea nitrogen [Mass/Vol] 14 mg/dL Normal 7-21 [facility] Comment on above: Performed By: #### Rosemarie JOHNSON, YONI, HFP, WSR #### [facility] [address] [address] CALR Exon 9 Mutationon 06-15 CALR Result/Interp Duplicate request Normal [facility] Comment on above: Result Comment: Acco unt Credited SEE RESULT FOR MPNP. [id number] Performed By: #### Elma ALR, BCRQL #### [facility] [address] [address] CALR Reviewed by Duplicate request Normal [facility] Comment on above: Result Comment: Acco unt Credited SEE RESULT FOR MPNP. [id number] Performed By: #### Elma ALR, BCRQL #### [facility] [address] [place], [place] [address] CALR Specimen Type Duplicate request Normal [facility] Comment on above: Result Comment: Acco unt Credited SEE RESULT FOR MPNP. [id number] Performed By: #### Elma ALR, BCRQL #### [facility] [address] [place], [place] [address] CNOVSPon 06-15-2018 CNOVSP Visit (SP) Office ([facility]MAC[facility]) [place] ([id number]) 1970 F Date Time Provider Department 06/15/18 11:15 AM VANESSA ESPINOSA HEMACL During your visit today, we recorded the [...] mg by mouth twice daily with meals. oxyCODONE-acetaminophe n (PERCOCET) 5-325 mg tablet umeclidinium-vilantero l (ANORO ELLIPTA) 62.5-25 mcg/actuation inhaler Inhale 1 [...] ABS GRAN CT + CBC (FOR REMOTE [facility] USE) - BASIC METABOLIC PNL - HEPATIC FUNCTION PNL - SED RATE WESTERGREN - BCR-ABL QUALITATIVE MULTIPLEX RT-PCR - JAK2 [id number] MUTATION BLOOD - MPL MUTATION ANALYSIS BLOOD - CALR EXON 9 MUTATION ANALYSIS BLOOD 2. Coronary artery disease involving [place] heart with other form of angina pectoris, [...] ABS GRAN CT + CBC (FOR REMOTE [facility] USE) - BASIC METABOLIC PNL - HEPATIC [...] See above Vanessa Espinosa MD Referring Provider: LACY ALBERTO ([facility]) [[id number]] Allergies As of Date: 06/15/2018 Noted Allergy Reaction LATEX 9 - Itching Date Reviewed: 06/15/2018 Reviewed by: Isaura Flores - Fully Assessed Reason for Visit: Consult [173] Cmt: elevated WBCs Primary Visit Diagnosis:Leukocytosis , unspecified type [D72.829] Other Visit Diagnoses:Coronary artery disease involving [place] heart with other form of angina pectoris, unspecified vessel or lesion type (HCC) [I25.118] Other specified diabetes mellitus without complication, with long-term current use of insulin (HCC) [E13.9, Z79.4] Psychiatric disorder [F99] Order(s):ABS GRAN CT + CBC (FOR REMOTE [facility] USE) [SQRAGCBC] Order #: [id number] FUTURE BASIC METABOLIC PNL [SQBMP] Order #: [id number] FUTURE HEPATIC FUNCTION PNL [SQHFP] Order #: [id number] FUTURE SED RATE WESTERGREN [SQWSR] Order #: [id number] FUTURE BCR-ABL QUALITATIVE MULTIPLEX RT-PCR [SQBCRQL] Order #: [id number] FUTURE JAK2 V617F MUTATION BLOOD [SQJAK2] Order #: [id number] FUTURE MPL MUTATION ANALYSIS BLOOD [SQMPL] Order #: [id number] FUTURE CALR EXON 9 MUTATION ANALYSIS BLOOD [SQCALR] Order #: [id number] FUTURE Disposition: Return in about 4 weeks [...] Take 500 mg by mouth twice da* OXYCODONE-ACETAMINOPHE N 5 MG-* UMECLIDINIUM 62.5 MCG-VILANTE* Inhale 1 Inhalation as instru* Problem List As Of Date 06/15/2018 Noted Resolved Leukocytosis [D72.829] INVALID FOR* Coronary artery disease involving [place] heart *INVALID FOR* Diabetes mellitus (HCC) [E11.9] INVALID FOR* Psychiatric disorder [F99] INVALID FOR* Encounter Status:Closed by VANESSA ESPINOSA MD on 06/15/18 Normal [facility] Hepatic Functn Panelon 06-15 Albumin [Mass/Vol] 4.2 g/dL Normal 3.9-4.9 [facility] Comment on above: Performed By: #### Rosemarie AK2, BMP, HFP, WSR #### [facility] [address] [place], [place] [address] ALP [Catalytic activity/Vol] 99 U/L Normal 34-123 [facility] Comment on above: Performed By: #### Rsoemarie AK2, YONI, HFP, WSR #### [facility] [address], [place] [address] ALT [Catalytic activity/Vol] 18 U/L Normal 7-38 [facility] Comment on above: Performed By: #### Rosemarie AK2, BMP, HFP, WSR #### [facility] [address], [place] [address] AST [Catalytic activity/Vol] 19 U/L Normal 13-35 [facility] Comment on above: Performed By: #### Rosemarie AK2, BMP, HFP, WSR #### [facility] [address] [place], [place] [address] Bilirubin [Mass/Vol] mg/dL Low 0.2-1.3 [facility] Comment on above: Performed By: #### YONI RUIZ, HFP, WSR #### [place] [id number] [place] [address] Bilirubin,Conjugated <0.2 Normal <0.2 [facility] Comment on above: Performed By: #### Rosemarie JOHNSON, YONI, HFP, WSR #### [place] [address] Protein [Mass/Vol] 7.1 g/dL Normal 6.3-8.0 [facility] Comment on above: Performed By: #### Rosemarie JOHNSON, YONI, HFP, WSR #### [place] [address] JAK2 V617F Mutationon 2017 JAK2 V617F Interp Duplicate request Normal [facility] Comment on above: Result Comment: Acco unt Credited SEE RESULT FOR MPNP. 2017 Performed By: #### YONI RUIZ, HFP, WSR #### [place] [address] JAK2 V617F Spec Type Duplicate request Normal [facility] Comment on above: Result Comment: Acco unt Credited SEE RESULT FOR MPNP. 2017 Performed By: #### YONI URIZ, HFP, WSR #### [place] [id number] [place] [address] Molecular Path Rev Duplicate request Normal [facility] Comment on above: Result Comment: Acco unt Credited SEE RESULT FOR MPNP. 2017 Performed By: #### Rosemarie JOHNSON, YONI, HFP, WSR #### [place] [id number] [place] [address] MPL Mutationon 06-15-2018 MPL Mutation Interp Duplicate request Normal [facility] Comment on above: Result Comment: Acco unt Credited SEE RESULT FOR MPNP. DMCKNIGHT 06 16 2018 Performed By: #### M PL #### [facility] [address] [place], [place] [address] Myeloprolif Neopl Pnl Bloodo n 06-15-2018 Myelo Neopl Pnl Bld (NOTE) Normal [facility] Comment on above: Result Comment: Plea se refer to [facility] Surgical Pathology report, . Performed By: #### M PNP ####[facility] [address] [place], [place] [phone] PROGRESSon 06-15-2018 PROGRESS HNO ID: [id number] Author: Vanessa Espinosa Service: (none) Author Type: Physician Type: Progress Notes Filed: 06/15/2018 11:39 AM Note Text: BAR Esmer Beach is a 48 year old [...] mg by mouth twice daily with meals. oxyCODONE-acetaminophe n (PERCOCET) 5-325 mg tablet umeclidinium-vilantero l (ANORO ELLIPTA) 62.5-25 mcg/actuation inhaler Inhale 1 [...] ABS GRAN CT + CBC (FOR REMOTE [facility] USE) - BASIC METABOLIC PNL - HEPATIC FUNCTION PNL - SED RATE WESTERGREN - BCR-ABL QUALITATIVE MULTIPLEX RT-PCR - JAK2 V617F MUTATION BLOOD - MPL MUTATION ANALYSIS BLOOD - CALR EXON 9 MUTATION ANALYSIS BLOOD 2. Coronary artery disease involving [place] heart with other form of angina pectoris, [...] ABS GRAN CT + CBC (FOR REMOTE [facility] USE) - BASIC METABOLIC PNL - HEPATIC [...] F99 See above Vanessa Espinosa MD Normal [facility] Remote Abs Gran + CBC (for F [facility] use only)on 06-15-2018 Absol Gran Count 12.48 k/uL High 1.45-7.50 [facility] Erythrocyte distribution width (RBC) [Ratio] 14.7 % Normal 11.5-15.0 [facility] Hematocrit (Bld) [Volume fraction] 46.8 % High 36.0-46.0 [facility] Hemoglobin (Bld) [Mass/Vol] 15.4 g/dL Normal 11.5-15.5 [facility] MCH (RBC) [Entitic mass] 29.2 pG Normal 26.0-34.0 [facility] MCHC (RBC) [Mass/Vol] 32.9 g/dL Normal 30.5-36.0 [facility] MCV (RBC) [Entitic vol] 88.8 fL Normal 80.0-100.0 [facility] Platelet mean volume (Bld) [Entitic vol] 9.1 fL Normal 9.0-12.7 [facility] Platelets (Bld) [#/Vol] 279 10*3/uL Normal 150-400 [facility] RBC (Bld) [#/Vol] 5.27 10*6/uL High 3.90-5.20 [facility] WBC (Bld) [#/Vol] 17.10 10*3/uL High 3.70-11.00 [facility] SURGICAL PATHOLOGYon 018 SURGICAL PATHOLOGY PROCEDURE REPORT Specimen originated from [facility] Specimen #: [id number] Submitting Physician: VANESSA ESPINOSA MD SPECIMEN SUBMITTED [...] this sample, and cDNA prepared by reverse hydro sprayer operator. Multiplex RT-PCR studies were performed using fluorescently [...] developed and its performance characteristics determined by [facility] Pathology [facility] Laboratory Medicine [place] ([facility]). It has not been cleared or approved by the FDA. -[facility] is regulated under CLIA as qualified to perform high-complexity testing. This test is used for clinical purposes. It should not be regarded as investigational or for research. As Reviewed by: Nahomy Galarza M.D. DSB/rh 06/20/2018 Procedure Pathologist: Nahomy Galarza M.D. Electronic [...] sequencing was performed on the Illumina instrument ([place], [place]). A customized bioinformatic pipeline was used to align the sequencing reads to the reference human genome (GRCh37/hg19). Benign common polymorphisms are not reported. Limitations: Sequence changes outside the analyzed regions, including intronic, noncoding, and splice-site variants, will not be identified by this test. The lower limit of detection of this assay is approximately 1% allele proportion for the JAK2 [id number] single nucleotide variant and approximately 5% allele [...] developed and its performance characteristics determined by [facility]ology [facility] [place] ([facility]). It has not been cleared or approved by the FDA. -[facility] is regulated under CLIA as qualified to perform high-complexity testing. This test is used for clinical purposes. It should not be regarded as investigational or for research. As Reviewed by: Nahomy Galarza M.D. [facility]/josh 06/22/18 References: Mark DA, Lux A, Raúl [...] Receipt: 06/16/2018 Submitted: VANESSA ESPINOSA MD Location: [facility] Diagnostic interpretation performed at [facility], [address] [place] [address]. Normal [facility] Sed Rate Westergrenon 2017 Sed Rate Westergren 2 mm/hr Normal 0-20 [facility] Comment on above: Performed By: #### J AK2, BMP, HFP, WSR #### [facility] [address] [place], [place] [address] Vital Signs Date Time Vital Sign Value Performing Clinician Radha pedersen 08-06-2024 15:11-0500 Body height 160 cm Lacy Juniorcalebholz COTTON MACHINE OPERATOR Work Phone: [facility] 08-06-2024 15:11-0500 Body mass index (BMI) [Ratio] 33.44 kg/m2 Lacy Aichholz COTTON MACHINE OPERATOR Work Phone: [facility] 08-06-2024 15:11-0500 Body temperature 97.59 [degF] Lacy Aichholz COTTON MACHINE OPERATOR Work Phone: [facility] 08-06-2024 15:11-0500 Body weight 85.64 kg Lacy Aichholz COTTON MACHINE OPERATOR Work Phone: [facility] 08-06-2024 15:11-0500 Diastolic blood pressure 86 mm[Hg] Lacy Aichholz COTTON MACHINE OPERATOR Work Phone: [facility] 08-06-2024 15:11-0500 Heart rate 107 /min Lacy Aichholz COTTON MACHINE OPERATOR Work Phone: [facility] 08-06-2024 15:11-0500 Respiratory rate 20 /min Lacy Aichholz COTTON MACHINE OPERATOR Work Phone: [facility] 08-06-2024 15:11-0500 SaO2% (BldA) [Mass fraction] 96 % Lacy Aichholz COTTON MACHINE OPERATOR Work Phone: [facility] 08-06-2024 15:11-0500 Systolic blood pressure 142 mm[Hg] Lacy Aichholz COTTON MACHINE OPERATOR Work Phone: [facility] 05-22-2024 09:00-0500 Body height 160 cm Lacy Aichholz COTTON MACHINE OPERATOR Work Phone: [facility] 05-22-2024 09:00-0500 Body mass index (BMI) [Ratio] 34.33 kg/m2 Lacy Aichholz COTTON MACHINE OPERATOR Work Phone: [facility] 05-22-2024 09:00-0500 Body temperature 98.49 [degF] Lacy Aichholz COTTON MACHINE OPERATOR Work Phone: [facility] 05-22-2024 09:00-0500 Body weight 87.91 kg Lacy Aichholz COTTON MACHINE OPERATOR Work Phone: [facility] 05-22-2024 09:00-0500 Diastolic blood pressure 78 mm[Hg] Lacy Aichholz COTTON MACHINE OPERATOR Work Phone: [facility] 05-22-2024 09:00-0500 Heart rate 70 /min Lacy Aichholz COTTON MACHINE OPERATOR Work Phone: [facility] 05-22-2024 09:00-0500 Respiratory rate 19 /min Lacy Aichholz COTTON MACHINE OPERATOR Work Phone: [facility] 05-22-2024 09:00-0500 SaO2% (BldA) [Mass fraction] 97 % Lacy Aichholz COTTON MACHINE OPERATOR Work Phone: [facility] 05-22-2024 09:00-0500 Systolic blood pressure 110 mm[Hg] Lacy Aichholz COTTON MACHINE OPERATOR Work Phone: [facility] Healthcare Encounters Encounter Date Encounter Type Care Provider Facility Start: 08-10-2024 End: 08-10-2024 Clinisync Result Encounter Generic External Data Provider [facility] External Department Unsolicited Start: 08-10-2024 End: 08-10-2024 Clinisync Result Encounter Generic External Data Provider [facility] External Department Unsolicited Start: 08-06-2024 End: 08-06-2024 Office outpatient visit 25 minutes Lacy Denissylvesterz COTTON MACHINE OPERATOR Work Phone: [facility] Comment on above: Type 2 diabetes josselin itus without complication, without long- term current use of insulin ([facility]) (Primary Dx); Bipolar disorder, current episode mixed, mild (CMS/HCC); Type 2 diabetes mellitus with other specified complication (CMS/HCC); Chronic obstructive pulmonary disease, unspecified (CMS/HCC); Type 2 diabetes mellitus with diabetic polyneuropathy (CMS/HCC); Arteriosclerosis of coronary artery ([facility]); Anxiety and depression ([facility]); Cervical spinal stenosis; Spondylosis of 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 Start: 08-06-2024 End: 08-06-2024 ambulatory LACY ALBERTO Not Available Start: 08-06-2024 End: 08-06-2024 Bamboo flowsheet Lacy Remy COTTON MACHINE OPERATOR Work Phone: [facility] Start: 08-06-2024 End: 08-06-2024 Bamboo flowsheet Lacynatanael Alberto COTTON MACHINE OPERATOR Work Phone: [facility] Start: 07-30-2024 End: 07-30-2024 ambulatory Edgardo Menon MD Facility:[facility] Start: 07-23-2024 End: 07-23-2024 Orders Only Lacy Alberto COTTON MACHINE OPERATOR Work Phone: [facility] Comment on above: 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 (Primary Dx) Start: 06-25-2024 End: 06-25-2024 Telephone encounter Lacy Alberto COTTON MACHINE OPERATOR Work Phone: [facility] Start: 05-28-2024 End: 05-28-2024 Refill Lacynatanael Alberto COTTON MACHINE OPERATOR Work Phone: [facility] Comment on above: Type 2 diabetes josselin itus without complication, without long- term current use of insulin ([facility]) (Primary Dx) Start: 05-22-2024 End: 05-22-2024 Bamboo flowsheet Lacy Remy COTTON MACHINE OPERATOR Work Phone: [facility] Start: 05-22-2024 End: 05-22-2024 Bamboo flowsheet Lacy Remy COTTON MACHINE OPERATOR Work Phone: [facility] Start: 05-22-2024 End: 05-22-2024 Patient encounter procedure Lacy Aichholz COTTON MACHINE OPERATOR Work Phone: [facility] Comment on above: Encounter for subseq uent annual wellness visit (AWV) in Medicare patient (Primary Dx); Type 2 diabetes mellitus with diabetic polyneuropathy ([facility]); Angina pectoris, unspecified ([facility]); Chronic obstructive pulmonary disease, unspecified ([facility]); BMI 32.0-32.9,adult; Type 2 diabetes mellitus without complication, without long-term current use of insulin ([facility]); Arteriosclerosis of coronary artery ([facility]); Tobacco use; Mixed hyperlipidemia ([facility]); Spondylosis of 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; Bipolar disorder, current episode mixed, mild ([facility]); Anxiety and depression ([facility]) Start: 05-22-2024 End: 05-22-2024 ambulatory LACY AICHHOLZ Not Available Start: 04-30-2024 End: 05-01-2024 Refill Lacy Aichholz COTTON MACHINE OPERATOR Work Phone: [facility] Comment on above: Type 2 diabetes josselin itus without complication, without long- term current use of insulin ([facility]) Start: 04-05-2024 End: 04-05-2024 Refill Lacy Aichholz COTTON MACHINE OPERATOR Work Phone: [facility] Comment on above: Type 2 diabetes josselin itus without complication, without long- term current use of insulin ([facility]) Start: 03-23-2024 End: 03-23-2024 Clinisync Result Encounter Lacy Aichholz COTTON MACHINE OPERATOR Work Phone: [facility] External Department Unsolicited Start: 03-23-2024 End: 03-23-2024 Clinisync Result Encounter Lacy Aichholz COTTON MACHINE OPERATOR Work Phone: [facility] External Department Unsolicited Start: 03-23-2024 End: 03-23-2024 Refill Lacy Aichholz COTTON MACHINE OPERATOR Work Phone: [facility] Comment on above: Type 2 diabetes josselin itus without complication, without long- term current use of insulin ([facility]/HCC) (Primary Dx) Start: 02-27-2024 End: 02-27-2024 Telephone encounter Lacy Alberto COTTON MACHINE OPERATOR Work Phone: [facility] Start: 11-17-2023 End: 11-17-2023 ambulatory LACY JUNIORHHOLZ Not Available Start: 09-09-2022 End: 09-10-2022 ambulatory BIODIESEL DIVISION MANAGER LACY DENISHOLZ Facility:[facility] Start: 08-31-2022 End: 09-01-2022 ambulatory BIODIESEL DIVISION MANAGER LACY DENISHOLZ Facility:[facility] Start: 06-07-2022 End: 06-08-2022 ambulatory BIODIESEL DIVISION MANAGER LACY DENISHOLZ Facility:[facility] Start: 12-16-2021 End: 12-17-2021 ambulatory BIODIESEL DIVISION MANAGER LACY JUNIORHHOLZ Facility:[facility] Procedures Date Procedure Procedure Detail Performing Clinician Start: 08-10-2024 Mri spinal canal cer vical w/o contrast matrl Generic External Data Provider Start: 08-06-2024 Hemoglobin glycosyla ronna a1c Lacy Remy COTTON MACHINE OPERATOR Work Phone: Start: 03-23-2024 ALL CBC WITH AUTO DIFF Lacy Remy COTTON MACHINE OPERATOR Work Phone: Start: 11-17-2023 Mammography Lacynatanael means COTTON MACHINE OPERATOR Work Phone: Plan of Treatment Date Care Activity Detail Author Start: 06-04-2025 End: 06-04-2025 Patient encounter procedure 06/04/2025 10:00 AM EST Office Visit [facility] [address] [place] [phone] Lacy Alberto NP [address] [place] [phone] [facility] Start: 05-22-2025 Medicare Annual Well ness (AWV) Medicare Annual Wellness (AWV) [facility] Start: 03-23-2025 Urine screening for protein Diabetes: Urine Protein Screening [facility] Start: 11-16-2024 Screening for malign ant neoplasm of breast Mammogram [facility] Start: 11-16-2024 Screening for malign ant neoplasm of colon [facility] Start: 11-03-2024 Hemoglobin A1c measurement Irene betes: Hemoglobin A1C [facility] Start: 10-08-2024 End: 10-08-2024 Patient encounter procedure 10/08/2024 1:00 PM EDT Office Visit [facility] [address] [place] [address] Lacy Alberto NP [address] [place] [phone] [facility] Start: 08-06-2024 End: 08-06-2024 Patient encounter procedure [facility] Comment on above: Arteriosclerosis of coronary artery (CMS/HCC) (Primary Dx); Bipolar disorder, current episode mixed, mild (CMS/HCC); Type 2 diabetes mellitus with other specified complication (CMS/HCC); Chronic obstructive pulmonary disease, unspecified (CMS/HCC); Type 2 diabetes mellitus with diabetic polyneuropathy (CMS/HCC); Type 2 diabetes mellitus without complication, without long-term current use of insulin (CMS/HCC); Anxiety and depression (CMS/HCC) Start: 07-11-2024 End: 07-11-2024 Patient encounter procedure 07/11/2024 2:40 PM EST Office Visit [facility] [address] [place] [address] Lacy Alberto NP [address] [place] [phone] [facility] Start: 06-22-2024 Hemoglobin A1c measurement Irene betes: Hemoglobin A1C [facility] Start: 06-21-2024 End: 06-21-2024 Patient encounter procedure 06/21/2024 10:30 AM EST Office Visit 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 Comment on above: BMI 32.0-32.9,adult (Primary Dx); Type 2 diabetes mellitus with diabetic polyneuropathy (CMS/HCC); Angina pectoris, unspecified (CMS/HCC); Chronic obstructive pulmonary disease, unspecified (CMS/HCC); Type 2 diabetes mellitus without complication, without long-term current use of insulin ([facility]/HCC); Arteriosclerosis of coronary artery ([facility]/HCC); Tobacco use; Mixed hyperlipidemia ([facility]/HCC) Start: 03-04-2024 Influenza vaccination Influenz a Vaccine (#1) [facility] Start: 12-19-2020 Hemoglobin A1c measurement Irene betes: Hemoglobin A1C [facility] Start: 01-05-1998 Screening for malign ant neoplasm of cervix HPV/Cotest [facility] Start: 01-05-1989 Screening for malign ant neoplasm of cervix Pap Smear [facility] Start: 01-05-1987 Urine screening for protein Diabetes: Urine Protein Screening [facility] Start: 01-05-1978 Glaucoma screening Diabetes: R etinopathy Screening [facility] Start: 1968 Medicare Annual Well ness (AWV) Medicare Annual Wellness (AWV) [facility] Start: 1968 Screening for malign ant neoplasm of colon [facility] Payers Date Payer Category Payer Medicaid 2019 Unknown 2019 Medicare (Managed Care) [employer] Member Subscriber Plan / Payer (Effective 2019-Present) Name: Esmer Beach Relation to Subscriber: Self Name: Esmer Beach Payer ID: Not on file Group ID: [id number] Type: Not on file Address: [facility] [address] [place] [id number] 2015 Medicare [id number] 1968 Unknown [id number] 593 1968 Unknown [id number] 593 1968 Unknown [id number] 593 1968 Unknown [id number] 593 1968 Unknown [id number] 196 1968 Unknown [id number]. 1259 1968 Unknown [id number]. 1259 1968 Unknown [id number] 1259 1959 Medicaid [id number] 1959 Unknown [id number] Social History Date Type Detail Facility Start: [facility]17[facility]23 [facility] History of tobacco use Cigarette Smoker [facility] Start: 11-17-2023 Tobacco use and exposure Smoke less tobacco non-user [facility] Start: 11-17-2023 End: 08-06-2024 Alcoholic beverage intake Lifetime non-drinker (finding) [facility] Start: 11-17-2023 End: 05-22-2024 [facility] of [facility] Start: 11-17-2023 End: 05-22-2024 Tobacco use panel [facility] Start: 11-17-2023 Alcohol Comment caffine: 2 cup s of coffe and 6 soda daily [facility] Start: 1970 Sex assigned at Not on file [facility] Clinical Notes 02-27-2024 to 08-06-2024 Lacy Alberto NP - 08/06/2024 6:39 PM Tammie Alberto NP - 08/06/2024 6:37 PM GODFREY SCOTT - 08/06/2024 3:00 PM Tammie Alberto NP - 08/06/2024 3:00 PM ESTPatient Instructions Note Date & Type Note Facility 08-06-2024 History of Presen t illness Narrative Associated Problem(s): Spondylosis of 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 Lengthy discussion with pt about process of: typically conservative treatment: NSAID, muscle relaxers, and PT Then MRI, and then go from there She is open now to see about gabapentin, and I have asked her to reach out to pain mgmt for this Fu in 2 months Associated Problem(s): Cervical spinal stenosis Continue with pain mgmt Pt states that she went to pain management however they are wanting her to get more scans and physical therapy Pt would like to discuss journavx Images from the original note were not included. Esmer Beach is a 54 y.o. female presents with chief complaint of Diabetes HPI: Lumbar back pain: Daily pain, went to [facility] pain mgmt, they had wanted her to go through PT, she does not want to do that. She is tearful as she is tired of having pain that is affecting her life, primarily has cervical and lumbar back pain. She has not requested opioids freq throughout her years of seeing me, she only uses them in extreme circumstances for pain, her sister had addiction issues, which is why she doesn't like to take them. She appears to be sensitive to many meds from the past, at her pain mgmt appt she was asked about gabapentin which she did not want to take. She does use THC that she feels helps and was told she could not have both that and opiates. She does have an upcoming cervical spine MRI and has to wait a few weeks for lumbar MRI She is now thinking about trial of gabapentin again Diabetes She presents for her follow-up diabetic visit. She has type 2 diabetes mellitus. Her disease course has been fluctuating. Hypoglycemia symptoms include nervousness/anxiousness. Pertinent negatives for hypoglycemia include no dizziness, headaches, seizures or tremors. Associated symptoms include foot paresthesias (right foot), polydipsia and polyuria. Pertinent negatives for diabetes include no chest pain, no polyphagia and no visual change. There are no hypoglycemic complications. Risk factors for coronary artery disease include diabetes mellitus, dyslipidemia and obesity. Current diabetic treatments: GLP 1. She is compliant with treatment most of the time. JOHNNY inhibitor/angiotensin II receptor christiano: declines. Eye exam is not current. SUBJECTIVE: MEDICATIONS: Current Outpatient Medications Medication Instructions ARIPiprazole (ABILIFY) 5 mg, Oral, Daily Continuous Glucose Multi Needle Machine Operator (FreeStyle Helen 2 [place]) device 1 each, Does not apply, Daily Continuous Glucose Sensor (FreeStyle Helen 2 Sensor) [facility] DIRECTED to test BLOOD SUGAR change EVERY 14 days escitalopram (LEXAPRO) 10 mg, Oral, Daily Ozempic (0.25 or 0.5 MG/DOSE) 0.5 mg, Subcutaneous, Every 7 days ALLERGIES: Allergies Allergen Reactions Atorvastatin Other legs Metoprolol Dizziness Latex Itching BURNING Metformin Diarrhea and GI intolerance Pegademase Bovine Unknown headache Poractant Tianna Swelling Wheat GI intolerance Constipation REVIEW OF SYMPTOMS: Review of Systems Constitutional: Negative for appetite change, chills and fever. HENT: Negative for congestion, ear pain and sore throat. Eyes: Negative for pain, discharge, redness and visual disturbance. Respiratory: Negative for cough, shortness of breath and wheezing. Cardiovascular: Negative for chest pain, palpitations and leg swelling. Gastrointestinal: Negative for abdominal pain, blood in stool, constipation, diarrhea, nausea and vomiting. Genitourinary: Negative for difficulty urinating, dysuria and frequency. Musculoskeletal: Positive for back pain and neck pain. Negative for arthralgias, joint swelling and myalgias. Skin: Negative for rash and wound. Neurological: Negative for dizziness, tremors, seizures, syncope and headaches. Psychiatric/Behavioral: Negative for behavioral problems, self-injury and suicidal ideas. The patient is nervous/anxious. Depression Hematological: Does not bruise/bleed easily. Endocrine: Positive for polydipsia and polyuria. Negative for polyphagia. Allergic/Immunologic: Negative for environmental allergies and food allergies. PAST MEDICAL HISTORY History reviewed. No pertinent past medical history. Past Surgical History: Procedure Laterality Date CT GUIDED TRANSVAGINAL TRANSRECTAL FLUID DRAIN 09/17/2020 CT GUIDED TRANSVAGINAL TRANSRECTAL FLUID DRAIN 09/17/2020 IR ANGIOGRAM INTRAVASCULAR US Left 03/13/2020 IR ANGIOGRAM INTRAVASCULAR US 03/13/2020 family history is not on file. OBJECTIVE: Visit Vitals BP 142/86 (BP Location: Left arm, Patient Position: Sitting, BP Cuff Size: Adult long) Pulse 107 Temp 97.6 F (Temporal) Resp 20 Ht 5' 3 Wt 188 lb 12.8 oz SpO2 96% BMI 33.44 kg/m Smoking Status Every Day BSA 1.95 m Physical Exam Vitals and nursing note reviewed. Constitutional: Appearance: Normal appearance. She is obese. She is ill-appearing. She is not toxic-appearing. HENT: Head: Normocephalic and atraumatic. Right Ear: External ear normal. Left Ear: External ear normal. Nose: Nose normal. Mouth/Throat: Mouth: Mucous membranes are moist. Eyes: Extraocular Movements: Extraocular movements intact. Conjunctiva/sclera: Conjunctivae normal. Neck: Vascular: No carotid bruit. Cardiovascular: Rate and Rhythm: Normal rate and regular rhythm. Pulses: Normal pulses. Heart sounds: Normal heart sounds. Pulmonary: Effort: Pulmonary effort is normal. Breath sounds: Normal breath sounds. No wheezing or rhonchi. Abdominal: General: Bowel sounds are normal. There is no distension. Palpations: Abdomen is soft. There is no mass. Tenderness: There is no abdominal tenderness. Musculoskeletal: Cervical back: Neck supple. Right lower leg: No edema. Left lower leg: No edema. Comments: Generalized tenderness paracervical and para lumbar region -SLR X2, DTR's 2+ patellar/achilles MMT 5/5 bilat UE/LE Limited ROM cervical and lumbar spine Slow movements Lymphadenopathy: Cervical: No cervical adenopathy. Skin: General: Skin is warm and dry. Capillary Refill: Capillary refill takes 2 to 3 seconds. Findings: No rash. Neurological: General: No focal deficit present. Mental Status: She is alert and oriented to person, place, and time. Psychiatric: Mood and Affect: Mood normal. Behavior: Behavior normal. Thought Content: Thought content normal. Judgment: Judgment normal. ASSESSMENT AND PLAN: No follow-ups on file. Problem List Items Addressed This Visit Bipolar disorder, current episode mixed, mild (CMS/HCC) Current meds: lexapro and abilify Anxiety and depression (CMS/HCC) Current meds lexapro and abilify Arteriosclerosis of coronary artery (CMS/HCC) Not compliant with statin, asa, or b christiano use Spondylosis of 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 Lengthy discussion with pt about process of: typically conservative treatment: NSAID, muscle relaxers, and PT Then MRI, and then go from there She is open now to see about gabapentin, and I have asked her to reach out to pain mgmt for this Fu in 2 months Chronic obstructive pulmonary disease, unspecified (CMS/HCC) Recommend quitting smoking No daily inhaler use Cervical spinal stenosis Continue with pain mgmt Type 2 diabetes mellitus without complication, without long-term current use of insulin (CMS/HCC) - Primary Check blood sugars daily, notify if <70 or >200. Take medications (pills or insulin) as directed. Monitor for s/s of hypoglycemia (sweaty, dizziness, nausea, vomiting, or shakiness). Watch for increase in thirst, urination, or appetite. Inspect feet frequently monitoring for open wounds , and also recommend yearly eye exam. Pt should attempt to remain as physically active as chronic conditions allow, as well as trying to follow a diet low in carbohydrates, and simple sugars. Non compliant with finger stick sugars, has done well with free style helen in the past, and would like to continue to use Current med: ozempic, refuses asa/statin/arb/johnny use A1c 8.8% Finances are tight and cannot afford healthy foods Will increase ozempic to 1mg week Cannot tolerate SGLT -2 or metformin, does not want insulin back again Relevant Medications semaglutide (Ozempic, 1 MG/DOSE,) 4 MG/3ML solution pen-injector Other Relevant Orders POCT glycosylated hemoglobin (Hb A1C) docked device (Completed) Type 2 diabetes mellitus with diabetic polyneuropathy (CMS/HCC) Recommend good blood glucose control Freq foot examinations or s/s open wounds Type 2 diabetes mellitus with other specified complication (CMS/HCC) Associated Problem(s): Anxiety and depression (CMS/HCC) Current meds lexapro and abilify Associated Problem(s): Bipolar disorder, current episode mixed, mild (CMS/HCC) Current meds: lexapro and abilify Associated Problem(s): Type 2 diabetes mellitus without complication, without long-term current use of insulin (CMS/HCC) Check blood sugars daily, notify if <70 or >200. Take medications (pills or insulin) as directed. Monitor for s/s of hypoglycemia (sweaty, dizziness, nausea, vomiting, or shakiness). Watch for increase in thirst, urination, or appetite. Inspect feet frequently monitoring for open wounds , and also recommend yearly eye exam. Pt should attempt to remain as physically active as chronic conditions allow, as well as trying to follow a diet low in carbohydrates, and simple sugars. Non compliant with finger stick sugars, has done well with free style helen in the past, and would like to continue to use Current med: ozempic, refuses asa/statin/arb/johnny use A1c 8.8% Finances are tight and cannot afford healthy foods Will increase ozempic to 1mg week Cannot tolerate SGLT -2 or metformin, does not want insulin back again Associated Problem(s): Arteriosclerosis of coronary artery ([facility]) Not compliant with statin, asa, or b christiano use Associated Problem(s): Chronic obstructive pulmonary disease, unspecified ([facility]) Recommend quitting smoking No daily inhaler use Associated Problem(s): Type 2 diabetes mellitus with diabetic polyneuropathy ([facility]) Recommend good blood glucose control Freq foot examinations or s/s open wounds documented in this encounter [facility] 08-06-2024 Instructions Lacy Alberto NP - 08/06/2024 3:00 PM EST Increase ozempic to 1mg daily Continue with pain mgmt documented in this encounter [facility] 07-23-2024 History of Presen t illness Narrative Associated Problem(s): Spondylosis of 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 [place] [facility] 06-25-2024 Miscellaneous Notes Formattin g of this note might be different from the original. Please contact pt, her insurance company denied her MRI lumbar spine, states she needs to do 6 weeks PT Is she willing to do this, or does she want a referral to pain mgmt, and if she wants a referral: [place]? 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 She takes them very sparingly OARRS reviewed Associated Problem(s): Chronic obstructive pulmonary disease, unspecified (CMS/HCC) Needs to quit smoking Associated Problem(s): Type 2 diabetes mellitus with diabetic polyneuropathy (CMS/HCC) Need for tight blood sugar control Pt would like an order for a Rolator walker Fax number [phone] Pt is asking for a handicap plaque for her car Pt is needing a refill on her freestyle helen 1 (one) Pt would like to discuss seeing the spinal surgeon- her Bowels have been effected now and not just her bladder. Pt has a retraining order on lesly crooks Images from the original note were not included. Esmer Beach is a 54 y.o. female presents with chief complaint of No chief complaint on file. HPI: Diet: variety Activity: not, d/t lumbar back pain Mental Health Concerns:depression/anxiety, was off meds for a bit restarted, no SI/HI, or hallucinations Falls in the last year: none Still driving: yes Do you pay your bills: yes Any hearing problems: none Any Vision problems: has eye appt this tuesday Any Hospitalizations in the last year: no Specialist: none HCPOA/Living Will: none Diabetes: out of sensors for a few weeks, 14 day average 179, last 30 days 184, 90 day 177. No hypoglycemia, +NT in feet, no open sores. Is not compliant with finger stick sugar checks d/t pain and NT Lumbar back pain: constant, sharp/throbbing/achy, avg 6-7/10, NT to entire right leg, and hip pain, decreased sensation as it applies to urinating and BM, she has had a couple episodes of being unsteady on her feet, with weakness, and is asking for both a Handicap placard as well as and RX for rollator to help with her abilities to ambulate safely. She is also asking of a script for opioid pain medications as well SUBJECTIVE: MEDICATIONS: Current Outpatient Medications Medication Instructions ARIPiprazole (ABILIFY) 5 mg, Oral, Daily Continuous Glucose Multi Needle Machine Operator (FreeStyle Helen 2 [place]) device 1 each, Does not apply, Daily Continuous Glucose Multi Needle Machine Operator (FreeStyle Helen 3 [place]) device 1 each, Does not apply, Daily Continuous Glucose Sensor (FreeStyle Helen 3 Sensor) misc 1 each, Does not apply, Daily escitalopram (LEXAPRO) 10 mg, Oral, Daily Ozempic (0.25 or 0.5 MG/DOSE) 0.5 mg, Subcutaneous, Every 7 days ALLERGIES: Allergies Allergen Reactions Atorvastatin Other legs Metoprolol Dizziness Latex Itching BURNING Metformin Diarrhea and GI intolerance Pegademase Bovine Unknown headache Poractant Tianna Swelling Wheat GI intolerance Constipation REVIEW OF SYMPTOMS: Review of Systems Constitutional: Negative for appetite change, chills and fever. HENT: Negative for congestion, ear pain and sore throat. Eyes: Negative for pain, discharge, redness and visual disturbance. Respiratory: Negative for cough, shortness of breath and wheezing. Cardiovascular: Negative for chest pain, palpitations and leg swelling. Gastrointestinal: Negative for abdominal pain, blood in stool, constipation, diarrhea, nausea and vomiting. Genitourinary: Negative for difficulty urinating, dysuria and frequency. Musculoskeletal: Positive for back pain. Negative for arthralgias, joint swelling and myalgias. Skin: Negative for rash and wound. Neurological: Positive for numbness. Negative for dizziness, tremors, seizures, syncope and headaches. Psychiatric/Behavioral: Negative for behavioral problems, self-injury and suicidal ideas. The patient is not nervous/anxious. Hematological: Does not bruise/bleed easily. Endocrine: Negative for polydipsia, polyphagia and polyuria. Allergic/Immunologic: Negative for environmental allergies and food allergies. PAST MEDICAL HISTORY History reviewed. No pertinent past medical history. Past Surgical History: Procedure Laterality Date CT GUIDED TRANSVAGINAL TRANSRECTAL FLUID DRAIN 09/17/2020 CT GUIDED TRANSVAGINAL TRANSRECTAL FLUID DRAIN 09/17/2020 IR ANGIOGRAM INTRAVASCULAR US Left 03/13/2020 IR ANGIOGRAM INTRAVASCULAR US 03/13/2020 family history is not on file. OBJECTIVE: Visit Vitals BP 110/78 (BP Location: Left arm, Patient Position: Sitting, BP Cuff Size: Adult long) Pulse 70 Temp 98.5 F (Temporal) Resp 19 Ht 5' 3 Wt 193 lb 12.8 oz SpO2 97% BMI 34.33 kg/m Smoking Status Every Day BSA 1.98 m Physical Exam Vitals and nursing note reviewed. Constitutional: General: She is not in acute distress. Appearance: Normal appearance. HENT: Head: Normocephalic and atraumatic. Right Ear: External ear normal. Left Ear: External ear normal. Nose: Nose normal. Mouth/Throat: Mouth: Mucous membranes are moist. Eyes: Extraocular Movements: Extraocular movements intact. Conjunctiva/sclera: Conjunctivae normal. Neck: Vascular: No carotid bruit. Cardiovascular: Rate and Rhythm: Normal rate and regular rhythm. Pulses: Normal pulses. Heart sounds: Normal heart sounds. Pulmonary: Effort: Pulmonary effort is normal. Breath sounds: Normal breath sounds. Abdominal: General: Bowel sounds are normal. There is no distension. Palpations: Abdomen is soft. There is no mass. Tenderness: There is no abdominal tenderness. Musculoskeletal: Cervical back: Normal range of motion and neck supple. Right lower leg: No edema. Left lower leg: No edema. Comments: Near full flexion, limited extension -SLR x2, DTR's 1+ R patellar, 2+ left patellar, 2+ bilat achilles MMT 4/5 RLE, 5/5 LLE No acute point tenderness Right hip pain with internal/external rotation Skin: General: Skin is warm and dry. Capillary Refill: Capillary refill takes 2 to 3 seconds. Findings: No rash. Neurological: General: No focal deficit present. Mental Status: She is alert and oriented to person, place, and time. Psychiatric: Mood and Affect: Mood normal. Behavior: Behavior normal. Thought Content: Thought content normal. Judgment: Judgment normal. ASSESSMENT AND PLAN: Follow up in about 4 weeks (around 06/19/2024) for Recheck. Problem List Items Addressed This Visit Bipolar disorder, current episode mixed, mild (CMS/HCC) Relevant Medications ARIPiprazole (Abilify) 5 MG tablet escitalopram (Lexapro) 10 MG tablet Anxiety and depression (CMS/HCC) Relevant Medications escitalopram (Lexapro) 10 MG tablet Arteriosclerosis of coronary artery (CMS/HCC) Does not take stating therapy, or b christiano, does take ASA Angina pectoris, unspecified (CMS/HCC) Hx of CAD, no active angina, does not take statin or b christiano, pt declines to take Spondylosis of 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 Will obtain updated MRI lumbar d/t decreased sensation of urge to urinate /stool Reports one episode of stool incontinence however it was associated with an episode of sneezing Offered pain mgmt, she responded with they will just send me to PT NSAIDS and muscle relaxers do not help Saw Neuro surgeon in the past, and he said she needed surgery Relevant Orders MR lumbar spine wo contrast Chronic obstructive pulmonary disease, unspecified ([facility]) Needs to quit smoking Mixed hyperlipidemia ([facility]) Declines use of statin therapy Advised risk for stroke, [place], without use Type 2 diabetes mellitus without complication, without long-term current use of insulin ([facility]) Check blood sugars daily, notify if <70 or >200. Take medications (pills or insulin) as directed. Monitor for s/s of hypoglycemia (sweaty, dizziness, nausea, vomiting, or shakiness). Watch for increase in thirst, urination, or appetite. Inspect feet frequently monitoring for open wounds , and also recommend yearly eye exam. Pt should attempt to remain as physically active as chronic conditions allow, as well as trying to follow a diet low in carbohydrates, and simple sugars. Non compliant with finger stick sugars, has done well with free style helen in the past, and would like to continue to use Relevant Medications Semaglutide,0.25 or 0.5MG/DOS, (Ozempic, 0.25 or 0.5 MG/DOSE,) 2 MG/3ML solution pen-injector Continuous Glucose Multi Needle Machine Operator (Genomic ExpressionStyle Helen 3 [place]) device RESOLVED: BMI 32.0-32.9,adult Type 2 diabetes mellitus with diabetic polyneuropathy ([facility]) Need for tight blood sugar control Tobacco use The patient has been advised of the risks of continued smoking: stroke, [place], all forms of cancer, lung disease, and . Options for quitting smoking include: cold turkey, hypnosis, acupuncture, nicotine replacement meds (gum, lozenges, and patches), Buproprion, and Varenicline. At this time pt is encouraged to evaluate their goals for wanting to quit smoking, and reach out to provider when ready to start this process Encounter for subsequent annual wellness visit (AWV) in Medicare patient - Primary Reviewed Ht/Wt/BMI Recommend eye exam yearly Recommend dental exams twice a year Balance work/leisure activities Exercises is recommended most days of the week (appropriate as chronic conditions allow) Follow up yearly and prn Associated Problem(s): Mixed hyperlipidemia (CMS/HCC) Declines use of statin therapy Advised risk for stroke, [place], without use Associated Problem(s): Tobacco use The patient has been advised of the risks of continued smoking: stroke, [place], all forms of cancer, lung disease, and . Options for quitting smoking include: cold turkey, hypnosis, acupuncture, nicotine replacement meds (gum, lozenges, and patches), Buproprion, and Varenicline. At this time pt is encouraged to evaluate their goals for wanting to quit smoking, and reach out to provider when ready to start this process Associated Problem(s): Arteriosclerosis of coronary artery ([facility]/HCC) Does not take stating therapy, or b christiano, does take ASA Associated Problem(s): Angina pectoris, unspecified ([facility]) Hx of CAD, no active angina, does not take statin or b christiano, pt declines to take Associated Problem(s): Type 2 diabetes mellitus without complication, without long-term current use of insulin ([facility]) Check blood sugars daily, notify if <70 or >200. Take medications (pills or insulin) as directed. Monitor for s/s of hypoglycemia (sweaty, dizziness, nausea, vomiting, or shakiness). Watch for increase in thirst, urination, or appetite. Inspect feet frequently monitoring for open wounds , and also recommend yearly eye exam. Pt should attempt to remain as physically active as chronic conditions allow, as well as trying to follow a diet low in carbohydrates, and simple sugars. Non compliant with finger stick sugars, has done well with free style helen in the past, and would like to continue to use documented in this encounter [facility] 05-22-2024 Instructions Lacy Alberto NP - 05/22/2024 9:00 AM EST Order MRI documented in this encounter [facility] 04-30-2024 Telephone encount er Note Patient is asking if she can get a handicap placard? JN [facility] 04-30-2024 Miscellaneous Notes Formattin g of this note might be different from the original. Patient is asking if she can get a handicap placard? JN Patient said she did go up to .5 documented in this encounter [facility] 04-30-2024 Telephone encount er Note Patient said she did go up to .5 [facility] 03-23-2024 Telephone encount er Note Call from [facility] Er, Dr Nobles... pt in er asking for refill of ozempic, has been out for 6 months. Blood sugar 289 I told him I would order it, [facility], but it may require a prior authorization to get, and that would not happened until next week if needed. Also told him to have her make a fu appt with our office, as it had been several months since she was last seen [facility] 03-23-2024 Miscellaneous Notes Formattin g of this note might be different from the original. Call from [facility] Er, Dr Nobles... pt in er asking for refill of ozempic, has been out for 6 months. Blood sugar 289 I told him I would order it, needs to go to [facility], but it may require a prior authorization to get, and that would not happened until next week if needed. Also told him to have her make a fu appt with our office, as it had been several months since she was last seen documented in this encounter [facility] 02-27-2024 Telephone encount er Note pt called needing a new free style helen tire repair mechanic sent into [facility] her old one no longer works and is in need of a new one [facility] 02-27-2024 Miscellaneous Notes Formattin g of this note might be different from the original. pt called needing a new free style helen tire repair mechanic sent into [facility] her old one no longer works and is in need of a new one documented in this encounter [facility] Healthcare Evaluation note Diagnosis Type 2 diabetes mellitus without complication, without long-term current use of insulin ([facility]/HCC) documented in this encounter [facility] HealthcareEvaluation note* Diagnosis Type 2 diabetes mellitus without complication, without long-term current use of insulin ([facility]/HCC)- Primary Arteriosclerosis of coronary artery (CMS/HCC) Gastroesophageal reflux disease without esophagitis Esophageal reflux Leukocytosis, unspecified type Mixed hyperlipidemia (CMS/HCC) Mixed hyperlipidemia Anxiety and depression ([facility]CC) Encounter for screening mammogram for malignant neoplasm of breast Spondylosis of 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 Pain of right hip History of colon polyps Bipolar disorder, current episode mixed, mild (CMS/HCC) Type 2 diabetes mellitus without complication, without long-term current use of insulin (CMS/HCC) documented in this encounter [facility] HealthcareEvaluation note* Diagnosis Type 2 diabetes mellitus without complication, without long-term current use of insulin (CMS/HCC)- Primary Arteriosclerosis of coronary artery (CMS/HCC) Gastroesophageal reflux disease without esophagitis Esophageal reflux Leukocytosis, unspecified type Mixed hyperlipidemia (CMS/HCC) Mixed hyperlipidemia Anxiety and depression (CMS/HCC) Encounter for screening mammogram for malignant neoplasm of breast Spondylosis of 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 Pain of right hip History of colon polyps Bipolar disorder, current episode mixed, mild (CMS/HCC) Encounter for subsequent annual wellness visit (AWV) in Medicare patient- Primary Type 2 diabetes mellitus with diabetic polyneuropathy (CMS/HCC) Angina pectoris, unspecified (CMS/HCC) Chronic obstructive pulmonary disease, unspecified (CMS/HCC) BMI 32.0-32.9,adult Type 2 diabetes mellitus without complication, without long-term current use of insulin (CMS/HCC) Arteriosclerosis of coronary artery (CMS/HCC) Tobacco use Mixed hyperlipidemia (CMS/HCC) Mixed hyperlipidemia Spondylosis of 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 Bipolar disorder, current episode mixed, mild (CMS/HCC) Anxiety and depression (CMS/HCC) documented in this encounter [facility] HealthcareEvaluation note* Diagnosis Type 2 diabetes mellitus without complication, without long-term current use of insulin (CMS/HCC)- Primary Arteriosclerosis of coronary artery (CMS/HCC) Gastroesophageal reflux disease without esophagitis Esophageal reflux Leukocytosis, unspecified type Mixed hyperlipidemia (CMS/HCC) Mixed hyperlipidemia Anxiety and depression (CMS/HCC) Encounter for screening mammogram for malignant neoplasm of breast Spondylosis of 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 Pain of right hip History of colon polyps Bipolar disorder, current episode mixed, mild (CMS/HCC) Encounter for subsequent annual wellness visit (AWV) in Medicare patient- Primary Type 2 diabetes mellitus with diabetic polyneuropathy (CMS/HCC) Angina pectoris, unspecified (CMS/HCC) Chronic obstructive pulmonary disease, unspecified (CMS/HCC) BMI 32.0-32.9,adult Type 2 diabetes mellitus without complication, without long-term current use of insulin (CMS/HCC) Arteriosclerosis of coronary artery (CMS/HCC) Tobacco use Mixed hyperlipidemia (CMS/HCC) Mixed hyperlipidemia Spondylosis of 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 Bipolar disorder, current episode mixed, mild (CMS/HCC) Anxiety and depression (CMS/HCC) Type 2 diabetes mellitus without complication, without long-term current use of insulin (CMS/HCC)- Primary documented in this encounter [facility]Evaluation note* Diagnosis Type 2 diabetes mellitus without complication, without long-term current use of insulin (CMS/HCC)- Primary documented in this encounter [facility] HealthcareEvaluation note* Diagnosis Type 2 diabetes mellitus without complication, without long-term current use of insulin (CMS/HCC)- Primary documented in this encounter [facility]Evaluation note* Diagnosis Type 2 diabetes mellitus without complication, without long-term current use of insulin (CMS/HCC)- Primary Arteriosclerosis of coronary artery (CMS/HCC) Gastroesophageal reflux disease without esophagitis Esophageal reflux Leukocytosis, unspecified type Mixed hyperlipidemia (CMS/HCC) Mixed hyperlipidemia Anxiety and depression (CMS/HCC) Encounter for screening mammogram for malignant neoplasm of breast Spondylosis of 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 Pain of right hip History of colon polyps Bipolar disorder, current episode mixed, mild (CMS/HCC) Encounter for subsequent annual wellness visit (AWV) in Medicare patient- Primary Type 2 diabetes mellitus with diabetic polyneuropathy (CMS/HCC) Angina pectoris, unspecified (CMS/HCC) Chronic obstructive pulmonary disease, unspecified (CMS/HCC) BMI 32.0-32.9,adult Type 2 diabetes mellitus without complication, without long-term current use of insulin (CMS/HCC) Arteriosclerosis of coronary artery (CMS/HCC) Tobacco use Mixed hyperlipidemia (CMS/HCC) Mixed hyperlipidemia Spondylosis of 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 Bipolar disorder, current episode mixed, mild (CMS/HCC) Anxiety and depression (CMS/HCC) Spondylosis of 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- Primary documented in this encounter [facility] HealthcareEvaluation note* Diagnosis Type 2 diabetes mellitus without complication, without long-term current use of insulin (CMS/HCC)- Primary Arteriosclerosis of coronary artery (CMS/HCC) Gastroesophageal reflux disease without esophagitis Esophageal reflux Leukocytosis, unspecified type Mixed hyperlipidemia (CMS/HCC) Mixed hyperlipidemia Anxiety and depression (CMS/HCC) Encounter for screening mammogram for malignant neoplasm of breast Spondylosis of 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 Pain of right hip History of colon polyps Bipolar disorder, current episode mixed, mild (CMS/HCC) Encounter for subsequent annual wellness visit (AWV) in Medicare patient- Primary Type 2 diabetes mellitus with diabetic polyneuropathy ([facility]/HCC) Angina pectoris, unspecified ([facility]/HCC) Chronic obstructive pulmonary disease, unspecified ([facility]/HCC) BMI 32.0-32.9,adult Type 2 diabetes mellitus without complication, without long-term current use of insulin ([facility]) Arteriosclerosis of coronary artery ([facility]) Tobacco use Mixed hyperlipidemia ([facility]/HCC) Mixed hyperlipidemia Spondylosis of 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 Bipolar disorder, current episode mixed, mild ([facility]/HCC) Anxiety and depression ([facility]) Spondylosis of 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- Primary Type 2 diabetes mellitus without complication, without long-term current use of insulin ([facility])- Primary Bipolar disorder, current episode mixed, mild ([facility]/HCC) Type 2 diabetes mellitus with other specified complication ([facility]) Chronic obstructive pulmonary disease, unspecified ([facility]) Type 2 diabetes mellitus with diabetic polyneuropathy ([facility]) Arteriosclerosis of coronary artery ([facility]) Anxiety and depression ([facility]) Cervical spinal stenosis Spinal stenosis in cervical region Spondylosis of 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 documented in this encounter [facility] Summary Purpose Family History No Family History Records FoundNo Family History Records FoundNo Family History Records FoundNo Family History Records FoundNo Family History Records Found Advance Directives No Advanced Directives Records FoundNo Advanced Directives Records FoundNo Advanced Directives Records FoundNo Advanced Directives Records FoundNo Advanced Directives Records Found Reason for Referral Specialty Diagnoses / Procedures Referred By Contac t Referred To Contact Diagnoses Type 2 diabetes mellitus without complication, without long-term current use of insulin ([facility]) Lacy Alberto, DOMINIC [address] [place] [address] Referral ID Status Reason Start Date Expiration Date V isits Requested Visits Authorized [id number] Pending Review 04/05/2024 10/02/2024 1 1 Referral ID Status Reason Start Date Expiration Date Visits Re quested Visits Authorized [id number] Closed 1 1 Additional Source Comments INFORMATION SOURCE (unrecogn ized section and content) DATE CREATED AUTHOR 01/21/2019 [facility] DATE CREATED AUTHOR AUTHOR'S ORGANIZ ATION 01/30/2020 [facility] DATE CREATED AUTHOR AUTHOR'S ORGANIZ ATION 09/13/2022 [facility] DATE CREATED AUTHOR AUTHOR'S ORGANIZ ATION 08/05/2024 [facility] DATE CREATED AUTHOR AUTHOR'S ORGANIZ ATION 08/08/2024 [facility] dical Specialists [facility] Care Teams (unrecognized sec tion and content) Cartridge Belt Puncher Relationship Specialty Start Date End Date Fred Pryor MD [address] [place] [phone] PCP - General Family Medicine 11/17/23 Lacy Alberto NP [address] [place] [phone] Referring Physician Family Medicine 07/04/22 Lacy Alberto NP [address] [place] [phone] Nurse Practitioner Family Medicine 11/17/23 Cartridge Belt Puncher Relationship Specialty Start Date End Date Fred Pryor MD [address] [place] [phone] PCP - General Family Medicine 11/17/23 Lacy Alberto NP [address] [place] [phone] Referring Physician Family Medicine 07/04/22 Lacy Alberto NP [address] [place] [phone] Nurse Practitioner Family Medicine 11/17/23 Cartridge Belt Puncher Relationship Specialty Start Date End Date Fred Pryor MD [address] [place] [phone] PCP - General Family Medicine 11/17/23 Lacy Alberto NP [address] [place] [phone] Referring Physician Family Medicine 07/04/22 Lacy Alberto NP [address] [place] [address] Nurse Practitioner Family Medicine 11/17/23 Cartridge Belt Puncher Relationship Specialty Start Date End Date Fred Pryor MD [address] [place] [phone] PCP - General Family Medicine 11/17/23 Lacy Alberto NP [address] [place] [phone] Referring Physician Family Medicine 07/04/22 Lacy Alberto NP [address] [place] [phone] Nurse Practitioner Family Medicine 11/17/23 Cartridge Belt Puncher Relationship Specialty Start Date End Date Fred Pryor MD [address] [place] [phone] PCP - General Family Medicine 11/17/23 Lacy Alberto NP [address] [place] [phone] Referring Physician Family Medicine 07/04/22 Lacy Alberto NP [address] [place] [phone] Nurse Practitioner Family Medicine 11/17/23 Cartridge Belt Puncher Relationship Specialty Start Date End Date Fred Pryor MD [address] [place] [phone] PCP - General Family Medicine 11/17/23 Lacy Alberto NP [address] [place] [phone] Referring Physician Family Medicine 07/04/22 Lacy Alberto NP [address] [place] [address] Nurse Practitioner Family Medicine 11/17/23 Cartridge Belt Puncher Relationship Specialty Start Date End Date Fred Pryor MD [address] [place] [phone] PCP - General Family Medicine 11/17/23 Lacy Alberto NP [address] [place] [phone] Referring Physician Family Medicine 07/04/22 Lacy Alberto NP [address] [place] [address] Nurse Practitioner Family Medicine 11/17/23 Cartridge Belt Puncher Relationship Specialty Start Date End Date Fred Pryor MD [address] [place] [phone] PCP - General Family Medicine 11/17/23 Lacy Alberto NP [address] [place] [phone] Referring Physician Family Medicine 07/04/22 Lacy Alberto NP [address] [place] [address] Nurse Practitioner Family Medicine 11/17/23 Cartridge Belt Puncher Relationship Specialty Start Date End Date Fred Pryor MD [address] [place] [phone] PCP - General Family Medicine 11/17/23 Lacy Alberto NP [address] [place] [phone] Referring Physician Family Medicine 07/04/22 Lacy Alberto NP [address] [place] [address] Nurse Practitioner Family Medicine 11/17/23 Cartridge Belt Puncher Relationship Specialty Start Date End Date Fred Pryor MD [address] [place] [phone] PCP - General Family Medicine 11/17/23 Lacy Alberto NP [address] [place] [phone] Referring Physician Family Medicine 07/04/22 Lacy Alberto NP [address] [place] [address] Nurse Practitioner Family Medicine 11/17/23 Cartridge Belt Puncher Relationship Specialty Start Date End Date Fred Pryor MD [address] [place] [phone] PCP - General Family Medicine 11/17/23 Lacy Alberto NP [address] [place] [phone] Referring Physician Family Medicine 07/04/22 Lacy Alberto NP [address] [place] [phone] Nurse Practitioner Family Medicine 11/17/23 Cartridge Belt Puncher Relationship Specialty Start Date End Date Fred Pryor MD [address] [place] [address] PCP - General Family Medicine 11/17/23 Lacy Alberto NP [address] [place] [phone] Referring Physician Family Medicine 07/04/22 Lacy Alberto NP [address] [place] [address] Nurse Practitioner Family Medicine 11/17/23 Reason for Visit (unrecogniz ed section and content) Reason Onset Date Comments Med Refill 04/30/2024 Reason Comments Diabetes FOR RECORDS PERTAINING TO PATIENTS WHO ARE [...] BE BASED ON THE PRIMARY CLINICAL RECORDS. [facility]. provides no warranty or guarantee of the accuracy or completeness of information in this document.
--- NOTE | 2024-08-20 10:33 | ED_ITS ---
HPI HPI - General Adult General Chief complaint: Upper Respiratory Infection Stated complaint: flu like symptoms Time Seen by Provider: 08/20/24 10:26 Source: patient Mode of arrival: walk-in Limitations: no limitations History of Present Illness HPI narrative: Patient is a 54-year-old female who is presenting to the ER with flulike symptoms that started yesterday. Patient is having sinus congestion, cough, mild sore throat. Patient smokes 1.5 packs of cigarettes a day, patient states she only smoked 1 cigarette today. Patient has no chest pain or heaviness. Patient does not feel short of breath. She has positive myalgia and arthralgia. Patient is here with her boyfriend. Patient lives at home with her boyfriend, she is not working. Boyfriend is a patient in the ER at this time as well. No rash. No other sick contacts besides her boyfriend. All systems are negative except as noted/marked. All systems reviewed and otherwise negative. Nurses note and vital signs reviewed and patient is not hypoxic. General: The patient appears well and in no apparent distress. Patient is resting comfortably on cart. Patient is not toxic, lethargic, or listless Skin: Warm, dry, no pallor noted. There is no rash noted. No petechiae, purpura. Head: Normocephalic, atraumatic; no sinus tenderness to palpation to bilateral frontal maxillary sinus. Eye: Normal conjunctiva, no drainage, EOMI. PERRL Ears, Nose, Mouth, and Throat: oral mucosa is moist. patient has no unilateral swelling, no obvious signs of peritonsillar abscess, no posterior pharyngeal petechiae or exudate. Airways patent. Patient tolerating secretions well. No trismus. Patient has clear drainage noted to the posterior pharynx. Patient has mild cobblestoning to the posterior pharynx. No bilateral anterior or posterior cervical lymphadenopathy. Nares patent. Mouth without vesicles. Cardiovascular: Regular Rate and Rhythm, no murmur, gallop, rub Respiratory: Patient is in no distress, no accessory muscle use, lungs are clear to auscultation, no wheezing, rales or rhonchi Back: non-tender, GI: Soft, no tenderness Musculoskeletal: Patient has full range of motion of all of the extremities, no motor, sensory, or focal neurological deficits Neurological: A&O x4, normal speech Psychiatric: Cooperative Related Data Home Medications ?Medication ?Instructions ?Recorded ?Confirmed aripiprazole 10 mg tablet (Abilify) 10 mg PO DAILY 07/30/24 08/20/24 escitalopram oxalate 10 mg tablet 10 mg PO DAILY 07/30/24 08/20/24 oxycodone-acetaminophen 5 mg-325 1 tab PO DAILY PRN pain 07/30/24 08/20/24 mg tablet (Percocet) semaglutide 1 mg/dose (4 mg/3 mL) 0.5 mg subcut QWEEK 07/30/24 08/20/24 subcutaneous pen injector (Ozempic) Allergies Allergy/AdvReac Type Severity Reaction Status Date / Time latex Allergy Unknown Verified 07/01/23 15:59 metformin Allergy Unknown Verified 07/01/23 15:59 Opioid HPI Opioid Management Most Recent Opioid Data: No Data to Display PFSH PFSH Social History Smoking status: Current every day smoker Little interest or pleasure in doing things: not at all Feeling down, depressed, or hopeless: not at all Exam Constitutional Vital Signs, click to edit/add: Last Vital Signs Temp 98.5 F 08/20/24 09:57 Pulse 111 H 08/20/24 09:57 Resp 18 08/20/24 09:57 BP 148/88 H 08/20/24 11:04 Pulse Ox 95 08/20/24 09:57 Course Vital Signs Vital signs: Vital Signs Temperature 98.5 F 08/20/24 09:57 Pulse Rate 111 H 08/20/24 09:57 Respiratory Rate 18 08/20/24 09:57 Blood Pressure 190/90 H 08/20/24 09:57 Pulse Oximetry 95 08/20/24 09:57 Temperature 98.5 F 08/20/24 09:57 Pulse Rate 111 H 08/20/24 09:57 Respiratory Rate 18 08/20/24 09:57 Blood Pressure 148/88 H 08/20/24 11:04 Pulse Oximetry 95 08/20/24 09:57 Medical Decision Making MDM Narrative Medical decision making narrative: Patient had influenza and COVID placed. Patient states that she does not get flu shots, patient is slightly tachycardic. Patient influenza and COVID were negative. Patient lungs are clear. Patient was sent home with education on medication to take [id number] to help treat flulike symptoms. Patient is here with her boyfriend who is sick and is chest x-ray and influenza and COVID are negative as well. Patient was encouraged to get a flu shot and also establish a PCP. Patient has no PCP. Lab Data Labs: Lab Results 08/20/24 Range/Units 10:02 Influenza Type A Ag Negative Influenza Type B Ag Negative SARS-CoV-2 Ag (CV2AG) Negative (NEGATIVE) Discharge Plan Discharge Chief Complaint: Upper Respiratory Infection Clinical Impression: Flu-like symptoms, Sinus congestion, Tobacco abuse Patient Disposition: Home, Self-Care Time of Disposition Decision: 11:46 Condition: Fair Prescriptions / Home Meds: No Action escitalopram oxalate 10 mg tablet 10 mg PO DAILY Ozempic 1 mg/dose (4 mg/3 mL) pen injector 0.5 mg subcut QWEEK aripiprazole [Abilify] 10 mg tablet 10 mg PO DAILY oxycodone-acetaminophen [Percocet] 5-325 mg tablet 1 tab PO DAILY PRN (Reason: pain) Print Language: [place] Islander Instructions: How to Stop Smoking (ED), Sinusitis (ED), Cold Symptoms (ED) Additional Instructions: Increase fluids at home, Gatorade, Powerade, or water. Alternate using DayQuil, NyQuil, and Flonase. Add Mucinex as well as needed. Alternate Tylenol and Motrin every 4 hours to help with fever control, body aches or joint pain. Use [id number] vitamin C, vitamin D3, and zinc to help fight infection and help with her immune system. Referrals: Lacy Alberto NP [Primary Care Provider] - 1 week Discharge Date/Time: 08/20/24 11:59
[2024-08-20 10:37] LABS: Influenza Virus A Antigen Negative; Influenza Virus B Antigen Negative; Internal Control Within Normal Limits; SARS-CoV-2 Ag NEGATIVE (NEGATIVE)
[2024-08-20 11:04] VITALS: BP 148/88
== END 2024-08-20 11:59 | disposition home or self-care (01) ==
PROVIDERS: Emergency Provider Emergency Medicine; PCP Nurse Practitioner
DX: R09.81 Nasal congestion (principal); F17.210 Nicotine dependence, cigarettes, uncomplicated; R05.9 Cough, unspecified; M79.10 Myalgia, unspecified site; J02.9 Acute pharyngitis, unspecified
CPT/HCPCS: 87804; 87811; 99283

== ENCOUNTER 2024-08-27 13:19 | Outpatient (OUT) | payer MEDICARE, MEDICAID, SELFPAY ==
--- NOTE | 2024-08-27 14:31 | P.CN_ITS ---
Consult Note: HPI Data of Consult Patient: known to practice within the last 3 years Consult date: 08/27/24 Requesting Physician: Vaishnavi Menon MD Primary Care Provider: Lacy Alberto NP Consult Narrative Reason for consult: neck, bilateral shouler/arm pain Narrative: 54yof who presents for assessment. notes worsening of pain radiating from neck into bilateral upper extremities. imaging reviewed, significant for multilevel degenerative changes and stenosis, worst at c5-6. has continued in a series of p rovider directed home exercises >6 weeks, without lasting benefit. uses tylenol primarily, cannot take nsaids because of anticoagulation. denies adverse med side effects. cc:: CC: Vaishnavi Menon MD Review of Systems ROS Status of ROS 10 or more systems reviewed and unremark able except as noted in history and below PFSH PFSH Social History Smoking status: Current every day smoker Little interest or pleasure in doing things: not at all Feeling down, depressed, or hopeless: not at all Meds Home Medications and Allergies Home Medications ?Medication ?Instructions ?Recorded ?Confirmed ?Type aripiprazole 10 mg tablet (Abilify) 10 mg PO DAILY 07/30/24 08/20/24 History escitalopram oxalate 10 mg tablet 10 mg PO DAILY 07/30/24 08/20/24 History oxycodone-acetaminophen 5 mg-325 1 tab PO DAILY PRN pain 07/30/24 08/20/24 History mg tablet (Percocet) semaglutide 1 mg/dose (4 mg/3 mL) 0.5 mg subcut QWEEK 07/30/24 08/20/24 History subcutaneous pen injector (Ozempic) zonisamide 100 mg capsule 100 mg PO BID #60 caps 08/27/24 Rx (Zonegran) Allergies Allergy/AdvReac Type Severity Reaction Status Date / Time latex Allergy Unknown Verified 07/01/23 15:59 metformin Allergy Unknown Verified 07/01/23 15:59 Exam Narrative Exam Narrative: Psych-alert and oriented x 3.? Attentive and appropriate, constitutionally normal, displays normal mood and affect per situation.? There are no obvious deficits in memory, reasoning, or intellect.? Skin-no obvious rashes, bruising, or erythema noted to the patient's area of pain.? Extremities-upper extremities are warm with minimal edema and palpable pulses. Cervical- tenderness to palpation noted in the cervical spine and paraspinal musculature.? Pain is elicited with flexion, extension, and lateral rotation of the cervical spine.? Range of motion is diminished due to pain. Facet loading maneuvers are positive. Strength-unremarkable and within normal limits .? Sensory-no notable sensory deficits in the bilateral upper extremities to touch or pinprick with the exception to decreased sensation to the bilateral c5, 6 dermatomal distribution.? Coordination remains intact.? Gait remains non-antalgic. Assessment and Plan Assessment and Plan (1) Cervical stenosis of spinal canal: Plan 54yof who presents for assessment. failed conservative measures, as noted. imaging reviewed, as noted. given symptoms and imaging, prudent to attempt bilateral c5-6 tfesi under fluoroscopic guidance. she is in agreement. will order ivcs for this, as patient has tried to have procedure done locally previously and was unable to tolerate. meds reviewed. will trial zonegran 100mg bid prn. follow up after procedure.
== END 2024-08-27 13:20 | disposition home or self-care (01) ==
LOC: PM 13:20
PROVIDERS: PCP Nurse Practitioner; Visit Provider Anesthesiology
DX: M48.02 Spinal stenosis, cervical region (principal)
CPT/HCPCS: G0463

== ENCOUNTER 2024-09-07 09:53 | Outpatient (OUT) | payer MEDICARE, MEDICAID, SELFPAY ==
--- NOTE | 2024-09-07 | MR_ITS ---
[address] [address] Patient Name: ADDIE BEACH MRN: [id number] date: 1970 Sex: F Assigned Patient Location: MRI Current Patient Location: Accession/Order Number: [id number] Exam Date: 09/08/2024 17:31 Report Date: 09/08/2024 17:40 At the request of: EDGARDO LUCERO MD Procedure: MR lumbar spine wo con MRI Lumbar Spine withoutcontrast TECHNIQUE: Multiplanar T1 and T2-weighted imaging of lumbar spine obtained without contrast. HISTORY: Chronic lumbar pain with radiculopathy. Bilateral leg weakness. COMPARISON: None The last fully segmented vertebral pair is operationally defined as L5/S1. POST SURGERY CHANGES: None BONE MARROW INFILTRATION: None BONE MARROW EDEMA: None BONY ALIGNMENT: Adequate bony alignment identified. SPINAL CANAL: Mild stenosis LUMBAR FRACTURE: None BONY LESIONS: None KIDNEYS: No hydronephrosis is identified. AORTA: No aortic aneurysm is seen. CONUS MEDULLARIS : The distal spinal cord is in adequate position without abnormality. Additional findings CONJOINED NERVE ROOT: None Lower thoracic level: Unremarkable L1-2 :Adequate disc without herniation. Patent central canal and neural foramen. Mild posterior element hypertrophy. L2-3: Adequate disc. No disc herniation. Patent central canal and neural foramen. There are mild posterior element hypertrophy. L3-4: Adequate disc height. No disc herniation. Patent central canal. Posterior element hypertrophy. Patent neural foramen L4-5: Mild disc space narrowing. Diffuse disc bulge with mild flattening of anterior thecal sac. Posterior element hypertrophy. Mild central canal stenosis. Mild left and mild right neural foraminal narrowing L5-S1: Moderate disc space narrowing. Endplate spurring. A diffuse disc bulge with flattening of the anterior thecal sac. Posterior element hypertrophy. Mild central canal stenosis. Marked left and moderate right neural foraminal narrowing MR/MR lumbar spine wo con IMPRESSION: Multilevel discovertebral degenerative changes greatest at the L5-S1 level. Mild central canal stenoses of lower lumbar spine. Multilevel facet hypertrophy. Neural foraminal narrowing as above. Pre-MRI plain film assessment: None Impression dictated by: Vito Pina M.D.09/08/2024 5:40 PM Dictation Location: [place] [address] Electronically authenticated by: [id number] Y Date: 09/08/2024 17:40
--- OUTSIDE RECORDS SUMMARY | 2024-09-07 10:01 | XMS_ITS | CCD ---
Author Organization [facility] Care Team Providers Care 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 Name Role Phone AICHHOLZ, PROFESSOR OF MANAGEMENT LACY Admitting Unavailable AICHHOLZ, PROFESSOR OF MANAGEMENT LACY Attending Unavailable AICHHOLZ, PROFESSOR OF MANAGEMENT LACY Primary Care Unavailable DR NAHOMY BUCHANAN V Consulting Unavailable AICHHOLZ, PROFESSOR OF MANAGEMENT LACY Consulting Unavailable AICHHOLZ, PROFESSOR OF MANAGEMENT LACY Admitting Unavailable AICHHOLZ, PROFESSOR OF MANAGEMENT LACY Attending Unavailable AICHHOLZ, PROFESSOR OF MANAGEMENT LACY Primary Care Unavailable AICHHOLZ, PROFESSOR OF MANAGEMENT LACY Consulting Unavailable AICHHOLZ, PROFESSOR OF MANAGEMENT LACY Admitting Unavailable AICHHOLZ, PROFESSOR OF MANAGEMENT LACY Attending Unavailable AICHHOLZ, PROFESSOR OF MANAGEMENT LACY Primary Care Unavailable AICHHOLZ, PROFESSOR OF MANAGEMENT LACY Primary Care Unavailable ERIC SKINNER Admitting Unavailable SUSANNE, ERIC Attending Unavailable RAFAELA ., DRAGAN AGUILERA Consulting Unavailabl e ERIC SKINNER Consulting Unavailable CASSIE BACK Consulting Unavailable Aichholz EXECUTIVE SEARCH CONSULTANT, Lacy Unavailable Fred Pryor MD Primary Care Provider Aichholz EXECUTIVE SEARCH CONSULTANT, Lacy Unavailable AICHHOLZ, LACY Attending Unavailable AICHHOLZ, LACY Attending Unavailable AICHHOLZ, LACY Attending Unavailable Lynsey PATEL, Edgardo Telles Attending Unavailable Fred Pryor MD Primary Care Unavail able Lynsey PATEL, Edgardo Telles Attending Unavailable Fred Pryor MD Primary Care Unavail able Allergies Allergy Classification Reported Allergen(s) Allergy Type Date of Onset Reaction(s) Facility (2 sources) Latex; Translations: [Latex] Drug allergy (disorder) 5 [facility] Repository (16 sources) atorvastatin Drug Allergy 0 Other [facility] (16 sources) Latex Allergy to substance 7 Itching [facility] (17 sources) metFORMIN; Translations: [metFORMIN] Drug Allergy 0 Diarrhea, GI intolerance [facility] (16 sources) Metoprolol Drug Allergy 1 Dizziness [facility] (16 sources) pegademase bovine Drug Allergy 7 Unknown [facility] (16 sources) Poractant tianna Drug Allergy 7 Swelling [facility] (16 sources) WHEAT DEXTRIN Drug Allergy 7 GI intolerance [facility] Medications Current Medications Medication Drug Class(es) [...] 05/29/2024 Active ARIPiprazole 5 mg oral tablet (18 sources) Atypical Antipsychotic Start: 11-17-2023 End: 08-20-2024 take 1 tablet by mouth once daily ARIPiprazole (Abilify) 5 MG tablet Indications: Bipolar disorder, current episode mixed, mild (CMS/HCC) Take 1 tablet (5 mg) by mouth Daily 90 tablet 1 05/22/2024 Active aspirin 81 mg delayed release oral tablet (8 sources) Platelet Aggregation Inhibitor, Nonsteroidal Anti-inflammatory Drug End: 05-22-2024 take 1 tablet by mouth in the morning aspirin 81 MG EC tablet Take 81 mg by mouth in the morning. 05/22/2024 Discontinued (Therapy completed) azithromycin 250 mg oral tablet (1 source) Macrolide Antimicrobial Start: 08-28-2024 azithromycin (Zithromax) 250 MG tablet Indications: URI, acute Day #1: 2 pills, Day #2-#5: 1 pill daily 6 tablet 08/28/[address] Machine Runner (FreeStyle Helen 2 [place]) device (16 sources) Start: 02-27-2024 End: 02-26-[address] Machine Runner (FreeStyle Helen 2 [place]) device Indications: Type 2 diabetes mellitus without [...] Glucose Sensor (FreeStyle Helen 2 Sensor) misc (9 sources) Start: 07-02-2024 Continuous Glucose Sensor (FreeStyle [...] Discontinued (Reorder) escitalopram 10 mg oral tablet (18 sources) Serotonin Reuptake Inhibitor Start: 02-07-2024 End: 08-20-2024 take 1 tablet by mouth once daily escitalopram (Lexapro) 10 MG tablet Indications: Bipolar disorder, current episode mixed, mild (CMS/HCC) , Anxiety and depression (CMS/HCC) Take 1 tablet (10 mg) by mouth Daily 90 tablet 1 05/22/2024 Active semaglutide (Ozempic, 1 MG/DOSE,) 4 MG/3ML solution pen-injector (4 sources) Start: 08-06-2024 End: 09-03-2024 inject 1 [...] Dates Sig (Normalized) Sig (Original) Continuous Glucose Road Machine Runner (FreeStyle Helen 3 [place]) device (3 sources) Start: 05-22-2024 End: 05-28-[address] Machine Runner (FreeStyle Helen 3 [place]) device Indications: Type 2 diabetes mellitus without complication, without long-term current use of insulin (CMS/HCC) 1 each Daily 3 each 05/22/2024 05/28/2024 Discontinued (Therapy completed) Start: 05-22-2024 End: 06-21-[address] Machine Runner (FreeStyle Helen 3 [place]) device Indications: Type 2 diabetes mellitus without [...] Episodic Chronic obstructive pulmonary disease and bronchiectasis (20 sources) Chronic obstructive lung disease; Translations: [Chronic obstructive pulmonary disease, unspecified] Onset: 11-17-2023 11-17-2023 Chronic Coronary atherosclerosis and other heart disease (20 sources) Atherosclerotic heart disease of [place] coronary artery without angina pectoris; Translations: [Coronary [...] 11-17-2023 Chronic Diseases of white blood cells (16 sources) Leukocytosis; Translations: [Elevated white blood cell count, unspecified] Onset: 09-14-2016 11-17-2023 Chronic Disorders of lipid metabolism (19 sources) Pure hypercholesterolemia, unspecified; Translations: [Mixed hyperlipidemia] Onset: 09-13-2022 11-17-2023 Chronic Disorders usually diagnosed in infancy, childhood, or adolescence (1 source) Other specified behavioral and emotional disorders with onset usually occurring in childhood and adolescence; Translations: [OTH BEHAVR EMOTIONAL D/O CHILD ADOL] Onset: 09-13-2022 Chronic Esophageal disorders (17 sources) Gastro-esophageal reflux disease without esophagitis; Translations: [Gastroesophageal reflux disease without esophagitis] Onset: 09-13-2022 11-17-2023 Chronic Genitourinary symptoms and ill-defined conditions (4 sources) Hematuria, unspecified; Translations: [HEMATURIA UNSPECIFIED] Onset: 09-09-2022 Episodic Mood disorders (20 sources) Mixed bipolar affective disorder, mild; Translations: [Bipolar disorder, current episode mixed, mild] Onset: 07-27-2023 07-27-2023 Chronic Other aftercare (1 source) halfway (current) use of aspirin; Translations: [DERRICK ENGINEER CURRENT USE OF ASPIRIN] Onset: 09-13-2022 Episodic Other aftercare (1 source) Other fpc (current) drug therapy; Translations: [OTH HALFWAY CURRENT DRUG THERAPY] Onset: 09-13-2022 Episodic Other [...] Translations: [RESTLESS LEGS SYNDROME] Onset: 09-13-2022 Chronic Other upper respiratory infections (2 sources) Acute upper respiratory infection; Translations: [Acute upper respiratory infection, unspecified] Onset: 08-28-2024 08-28-2024 Episodic Residual codes; unclassified (16 sources) Obstructive sleep apnea syndrome; Translations: [Obstructive [...] NEOPLSM TRACH BRON LNG] Onset: 09-05-2022 Episodic Spondylosis; intervertebral disc disorders; other back problems (20 sources) Cervical spondylosis; Translations: [Other spondylosis with myelopathy, cervical region] Onset: 10-08-2016 11-17-2023 Chronic Substance-related disorders (1 source) Nicotine dependence, cigarettes, uncomplicated; Translations: [NICOTINE DEPEND CIGARETTES UNCOMP] Onset: 09-13-2022 Chronic Past or Other Problems Problem Classification Problem Date Documented Date Episodic/Chronic Immunizations and screening for infectious disease (16 sources) Raised antinuclear antibody; Translations: [Other specified abnormal immunological findings in serum] Onset: 11-17-2023 11-17-2023 Episodic Mood disorders (11 sources) Mood disorders; Translations: [DEPRESSION UNSPECIFIED] Onset: 09-13-2022 05-22-2024 Other aftercare (1 source) halfway (current) use of insulin; Translations: [DERRICK ENGINEER CURRENT USE OF INSULIN] Onset: 12-18-2021 Episodic Other and unspecified benign neoplasm (16 sources) History of polyp of colon; Translations: [History of colon polyps] Onset: 11-17-2023 11-17-2023 Episodic Other non-traumatic joint disorders (15 sources) Hip pain; Translations: [Pain in right hip] Onset: 11-17-2023 11-17-2023 Episodic Other non-traumatic joint disorders (1 source) Pain in right hip joint; Translations: [Pain in right hip] Onset: 11-17-2023 11-17-2023 Episodic Other nutritional; endocrine; and metabolic disorders (15 sources) Body mass index 30+ - obesity; Translations: [Body mass index (BMI) 32.0-32.9, adult] Onset: 04-05-2024 Resolved: 05-22-2024 04-05-2024 Chronic Other screening for suspected conditions (not mental disorders or infectious disease) (20 sources) Encounter for screening mammogram for malignant neoplasm of breast; Translations: [Patient encounter status] Onset: 08-31-2022 Episodic Other upper respiratory disease (16 sources) Cyst of nasopharynx; Translations: [Other diseases of pharynx] Onset: 10-23-2020 11-17-2023 Episodic Residual codes; unclassified (13 sources) Tobacco use and exposure - finding; Translations: [Tobacco use] Onset: 05-22-2024 05-22-2024 Episodic Spondylosis; intervertebral disc disorders; other back problems (18 sources) Spinal stenosis in cervical region; Translations: [Spinal stenosis, cervical region] Onset: 11-17-2023 11-17-2023 Episodic Viral infection (16 sources) Herpes simplex; Translations: [Herpesviral infection, unspecified] Onset: 11-17-2023 11-17-2023 Episodic Results Test Name Value Interpretation Reference Range Facility MR Cervical spine WO contras ton 08-10-2024 [place] [address] Magnetic Resonance Report Signed Patient: ESMER BEACH MR#: [id number] : 1970 Acct:[id number] Age/Sex: 54 / F ADM Date: 08/10/24 Loc: MRI Attending Dr: Edgardo Menon M.D. Ordering Physician: Edgardo Menon M.D. Date of Service: 08/10/24 Procedure(s): MR cervical spine wo con Accession Number(s): [id number] cc: Lacy Alberto NP; Edgardo Menon M.D. [place] [address] Patient Name: ESMER BEACH MRN: [id number] date: 1970 Sex: F Assigned Patient Location: MRI Current Patient Location: MRI Accession/Order Number: [id number] Exam Date: 08/10/2024 13:10 Report Date: 08/10/2024 [...] Buchanan M.D. Signed By: 08/10/24 1459 DD/ 1456 TD/TT: Optometrist Owner: [facility] Radiology, Radiologist, MD - 08/10/2024 [place] [address] Magnetic Resonance Report Signed Patient: ESMER BEACH MR#: [id number] : 1970 Acct:[id number] Age/Sex: 54 / F ADM Date: 08/10/24 Loc: MRI Attending Dr: Edgardo Menon M.D. Ordering Physician: Edgardo Menon M.D. Date of Service: 08/10/24 Procedure(s): MR cervical spine wo con Accession Number(s): [id number] cc: Lacy Alberto EXECUTIVE SEARCH CONSULTANT; Edgardo Menon M.D. The [place] [id number] Patient Name: ESMER BEACH MRN: [facility]:[id number] date: 1970 Sex: F Assigned Patient Location: MRI Current Patient Location: MRI Accession/Order Number: [id number] Exam Date: 08/10/2024 13:10 Report Date: 08/10/2024 [...] Buchanan M.D. Signed By: 08/10/24 1459 DD/ 1456 TD/TT: Optometrist Owner: [facility] Radiology Study observation (narrative) [facility] MR Cervical spine WO contras tOrdered By: Radiologist Radiology on 08-10-2024 [facility] Work Phone: HbA1c (Bld) [Mass fraction]o n 08-06-2024 Interpretation and review of laboratory results Abnormal [facility] - Hematology and Cell countson 08-06-2024 HbA1c (Bld) [Mass fraction] 8.80 % [facility] ALL CBC WITH AUTO DIFFon BASOPHILS ABSOLUTE AUTO 0.1 [facility] Basophils/100 WBC (Bld) 0.6 % 0.2 - 2.0 % [facility] Eosinophils/100 WBC (Bld) 1.7 % 0.9 - 7.0 % [facility] Erythrocyte distribution width (RBC) [Ratio] 13.8 % 11.0 - 15.0 % [facility] Hematocrit (Bld) [Volume fraction] 55.5 % High 36.0 - 48.0 % [facility] Hemoglobin (Bld) [Mass/Vol] 18.7 g/dL High 12.0 - 16.0 g/dL [facility] IMMATURE GRANULOCYTES ABS AUTO 0.03 [facility] Immature granulocytes/100 WBC (Bld) 0.2 % 0.0 - 0.5 % [facility] Interpretation and review of laboratory results Abnormal [facility] LYMPHOCYTES ABSOLUTE AUTO 2.9 [facility] Lymphocytes/100 WBC (Bld) 23.1 % 20.5 - 60.0 % [facility] MCH (RBC) [Entitic mass] 30.6 pg 26.7 - 34.0 pg [facility] MCHC (RBC) [Mass/Vol] 33.7 g/dL 29.9 - 35.2 g/dL [facility] MCV (RBC) [Entitic vol] 90.7 fL 81.0 - 99.0 fL [facility] MONOCYTES ABSOLUTE AUTO 0.6 [facility] Monocytes/100 WBC (Bld) 4.5 % 1.7 - 12.0 % [facility] NEUTROPHILS ABSOLUTE AUTO 8.9 High [facility] Neutrophils/100 WBC (Bld) 69.9 % 43.0 - 75.0 % [facility] Platelet mean volume (Bld) [Entitic vol] 9.2 fL Low 9.5 - 13.5 fL [facility] TBH EO # 0.2 [facility]H PLT 235 [facility] TB RBC 6.12 High [facility] TBH WBC 12.7 High [facility] CBC W MANUAL DIFFon 09-10-19 23 ATYPICAL LYMPH # 1.49 103/ul Normal [facility] Comment on above: Performed By: #### C EMANI #### [facility] [address] [place] [address] [address] Shakira Baehna ATYPICAL LYMPH % 8 % Normal [facility] Comment on above: Performed By: #### C EMANI #### [facility] [address] [place] [address] [address] Shakira Bahena BAND # 0.0 103/ul Normal 0.0-0.3 [facility] Comment on above: Performed By: #### C EMANI #### [facility] [address] [place] [address] [address] Shakira Bahena BAND % 0 % Normal 0-5 [facility] Comment on above: Performed By: #### C EMANI #### [facility] [address] [place] [address] [address] Shakira Bahena BASOM # 0.00 103/ul Normal 0.00-0.10 [facility] Comment on above: Performed By: #### C BCMAN #### [facility] [address] [place] [address] [address] Shakira Bahena BASOM % 0.0 % Critically low 0.2-2.0 [facility] Comment on above: Performed By: #### C BCMAN #### [facility] [address] [place] [address] [address] Shakira Bahena BLAST # Normal [facility] Comment on above: Performed By: #### C BCMAN #### [facility] [address] [place] [address] Dr. Shakira Bahena BLAST % Normal [facility] Comment on above: Performed By: #### C BCANGELA #### [facility] [address] [place] [address] Dr. Shakira Bahena CORRECTED WBC Normal 4.0-11.0 [facility] Comment on above: Performed By: #### C BCANGELA #### [facility] [address] [place] [address] Dr. Shakira Bahena EOS # 0.56 103/ul Normal 0.00-0.70 [facility] Comment on above: Performed By: #### C BCANGELA #### [facility] [address] [place] [address] Dr. Shakira Bahena EOS% 3.0 % Normal 0.9-7.0 [facility] Comment on above: Performed By: #### C BCMAN #### [facility] [address] [place] [address] [address] Shakira Bahena HCT 50.8 % Critically high 36.0-48.0 [facility] Comment on above: Performed By: #### C BCMAN #### [facility] [address] [place] [address] Dr. Shakira Bahena HGB 17.7 g/dl Critically high 12.0-16.0 [facility] Comment on above: Performed By: #### C EMANI #### [facility] [address] [place] [address] [address] Shakira Bahena LYMPHM # 1.30 103/ul Normal 1.20-3.80 [facility] Comment on above: Performed By: #### C EMANI #### [facility] [address] [place] [address] [address] Shakira Bahena LYMPHM% 7.0 % Critically low 20.5-60.0 [facility] Comment on above: Performed By: #### C EMANI #### [facility] [address] [place] [address] [address] Shakira Bahena MCH 30.7 pg Normal 26.7-34.0 [facility] Comment on above: Performed By: #### C EMANI #### [facility] [address] [place] [address] Dr. Shakira Bahena MCHC 34.8 g/dl Normal 29.9-35.2 [facility] Comment on above: Performed By: #### Elma JOAQUIN #### [facility] [address] [place] [address] Dr. Shakira Bahena MCV 88.0 fL Normal 81.0-99.0 [facility] Comment on above: Performed By: #### C EMANI #### [facility] [address] [place] [address] Dr. Shakira Bahena METAMYELOCYTE # Normal [facility] Comment on above: Performed By: #### Elma JOAQUIN #### [facility] [address] [place] [address] Dr. Shakira Bahena METAMYELOCYTE % Normal [facility] Comment on above: Performed By: #### C EMANI #### [facility] [address] [place] [address] Dr. Shakira Bahena MONOM# 0.37 103/ul Normal 0.30-0.80 [facility] Comment on above: Performed By: #### Elma JOAQUIN #### [facility] [address] [place] [address] Dr. Shakira Bahena MONOM% 2.0 % Normal 1.7-12.0 [facility] Comment on above: Performed By: #### C EMANI #### [facility] [address] [place] [address] Dr. Shakira Bahena MPV 10.1 fL Normal 9.5-13.5 [facility] Comment on above: Performed By: #### C EMANI #### [facility] [address] [place] [address] Dr. Shakira Bahena MYELOCYTE # Normal [facility] Comment on above: Performed By: #### C EMANI #### [facility] [address] [place] [address] Dr. Shakira Bahena MYELOCYTE % Normal [facility] Comment on above: Performed By: #### C EMANI #### [facility] [address] [place] [address] Dr. Shakira Bahena NRBC Normal [facility] Comment on above: Performed By: #### C EMANI #### [facility] [address] [place] [address] Dr. Shakira Bahena PLT 235 103/ul Normal 150-450 [facility] Comment on above: Performed By: #### C EMANI #### [facility] [address] [place] [address] Dr. Shakira Bahena RBC 5.77 106/ul Critically high 4.20-5.40 [facility] Comment on above: Performed By: #### C EMANI #### [facility] [address] [place] [address] Dr. Shakira Bahena RDW 14.5 % Normal 11.0-15.0 [facility] Comment on above: Performed By: #### C BCMAN #### [facility] [address] [place] [address] Dr. Shakira Bahena SEG # 14.88 103/ul Critically high 1.40-6.50 [facility] Comment on above: Performed By: #### C EMANI #### [facility] [address] [place] [address] Dr. Shakira Bahena SEG % 80.0 % Critically high 43.0-75.0 [facility] Comment on above: Performed By: #### C EMANI #### [facility] [address] [place], [place] [address] Dr. Shakira Bahena WBC 18.6 103/ul Critically high 4.0-11.0 [facility] Comment on above: Performed By: #### C EMANI #### [facility] [address] [place], [place] [address] ABD/PELVIS WO CONon [...] by: CASSIE BACK Date: 2022-09-09 21:39 Normal [facility] ER URINE PROFILEon 3 Bilirubin Ql (U) Negative Normal NEGATIVE [facility] Comment on above: Performed By: #### U MICRO, ERUR #### [facility] [address] [place] [address] [address] Shakira Bahena Clarity (U) CLEAR Normal CLEAR [facility] Comment on above: Performed By: #### U MICRO, ERUR #### [facility] [address] [place] [address] [address] Shakira Bahena Color (U) RED Abnormal YELLOW [facility] Comment on above: Performed By: #### U MICRO, ERUR #### [facility] [address] [place] [address] [address] Shakira FORDE A micrscopic examination will be performed if indicated. Normal [facility] Comment on above: Performed By: #### U MICRO, ERUR #### [facility] [address] [place] [address] Dr. Shakira Bahena Glucose Ql (U) Negative Normal NEGATIVE [facility] [place] Comment on above: Performed By: #### U MICRO, ERUR #### [facility] [address] [place] [address] [address] Shakira Bahena Hemoglobin Ql (U) LARGE Abnormal NEGATIVE [facility] Comment on above: Performed By: #### U MICRO, ERUR #### [facility] [address] [place] [address] [address] Shakira Bahena Ketones Ql (U) Negative Normal NEGATIVE [facility] [place] Comment on above: Performed By: #### U MICRO, ERUR #### [facility] [address] [place] [address] [address] Shakira Bahena LEUKOCYTES TRACE Abnormal NEGATIVE [facility] Comment on above: Performed By: #### U MICRO, ERUR #### [facility] [address] [place] [address] [address] Shakira Bahena Nitrite Ql (U) Negative Normal NEGATIVE [facility] [place] Comment on above: Performed By: #### U MICRO, ERUR #### [facility] [address] [place] [address] [address] Shakira Bahena pH (U) 5.5 [pH] Normal 5-9 [facility] Comment on above: Performed By: #### U MICRO, ERUR #### [facility] [address] [place] [address] Dr. Shakira Bahena Protein (U) [Mass/Vol] 100 mg/dL Abnormal NEGATIVE/ TRACE [facility] Comment on above: Performed By: #### U MICRO, ERUR #### [facility] [address] [place] [address] Dr. Shakira Bahena SPEC GRAVITY 1.010 Normal 1.005-<=1.025 [facility] Comment on above: Performed By: #### U MICRO, ERUR #### [facility] [address] [place] [address] Dr. Shakira Bahena UR MICRO IND INDICATED Normal [facility] Comment on above: Performed By: #### U MICRO, ERUR #### [facility] [address] [place] [address] Dr. Shakira Bahena Urobilinogen Qn (U) 1.0 {Navin'U}/dL Normal 0.2 - 1. 0 [facility] Comment on above: Performed By: #### U MICRO, ERUR #### [facility] [address] [place] [address] Dr. Shakira Bahena LACTATE/LACTIC ACIDon 2022 Lactate [Moles/Vol] 0.7 mmol/L Normal 0.4-2.0 [facility] Comment on above: Performed By: #### L ACT #### [facility] [address] [place] [address] Dr. Shakira Bahena PROF 14(COMP METB)on 023 Albumin [Mass/Vol] 3.5 g/dL Normal 3.4-5.0 [facility] Comment on above: Performed By: #### P T, PTT #### [facility] [address] [place] [address] Dr. Shakira Bahena Albumin/Globulin [Mass ratio] 1.1 {ratio} Normal [facility] Comment on above: Performed By: #### P T, PTT #### [facility] [address] [place] [address] [address] Shakira Bahena ALP [Catalytic activity/Vol] 104 U/L Normal 46-116 [facility] Comment on above: Performed By: #### P T, PTT #### [facility] [address] [place] [address] [address] Shakira Bahena ALT [Catalytic activity/Vol] 20 U/L Normal 14-59 [facility] Comment on above: Performed By: #### P T, PTT #### [facility] [address] [place] [address] [address] Shakira Bahena Anion gap [Moles/Vol] 9.9 mmol/L Normal [facility] Comment on above: Performed By: #### P T, PTT #### [facility] [address] [place] [address] Dr. Shakira Bahena AST [Catalytic activity/Vol] 24 U/L Normal 15-37 [facility] Comment on above: Performed By: #### P T, PTT #### [facility] [address] [address] [address] Shakira Bahena Bilirubin [Mass/Vol] 0.4 mg/dL Normal 0.2-1.0 [facility] Comment on above: Performed By: #### P T, PTT #### [facility] [address] [address] [address] Shakira Bahena Calcium [Mass/Vol] 8.6 mg/dL Normal 8.5-10.1 [facility] Comment on above: Performed By: #### P T, PTT #### [facility] [address] [address] [address] Shakira Bahena Chloride [Moles/Vol] 106 mmol/L Normal 98-107 [facility] Comment on above: Performed By: #### P T, PTT #### [facility] [address] [address] [address] Shakira Bahena CO2 [Moles/Vol] 26.3 mmol/L Normal 21.0-32.0 [facility] Comment on above: Performed By: #### P T, PTT #### [facility] [address] [place] [address] Dr. Shakira Bahena Creatinine [Mass/Vol] 0.60 mg/dL Normal 0.55-1.02 [facility] Comment on above: Performed By: #### P T, PTT #### [facility] [address] [address] [address] Shakira Bahena EGFR-AF [place]ONG [place]ER >60 Normal >=60 [facility] Comment on above: Performed By: #### P T, PTT #### [facility] [address] [place] [address] Dr. Shakira Bahena EGFR-NON AF [place]ER >60 Normal >=60 [facility] Comment on above: Performed By: #### P T, PTT #### [facility] [address] [place] [address] Dr. Shakira Bahena Globulin (S) [Mass/Vol] 3.2 g/dL Normal [facility] Comment on above: Performed By: #### P T, PTT #### [facility] [address] [place] [address] Dr. Shakira Bahena Glucose [Mass/Vol] 105 mg/dL Normal 74-106 [facility] Comment on above: Performed By: #### P T, PTT #### [facility] [address] [place] [address] Dr. Shakira Bahena Potassium [Moles/Vol] 4.2 mmol/L Normal 3.5-5.1 [facility] Comment on above: Performed By: #### P T, PTT #### [facility] [address] [place] [address] Dr. Shakira Bahena Protein [Mass/Vol] 6.7 g/dL Normal 6.4-8.2 [facility] Comment on above: Performed By: #### P T, PTT #### [facility] [address] [place] [address] Dr. Shakira Bahena Sodium [Moles/Vol] 138 mmol/L Normal 136-145 [facility] Comment on above: Performed By: #### P T, PTT #### [facility] [address] [place] [address] Dr. Shakira Bahena Urea nitrogen [Mass/Vol] 11.0 mg/dL Normal 7.0-18.0 [facility] Comment on above: Performed By: #### P T, PTT #### [facility] [address] [place] [address] Dr. Shakira Bahena Urea nitrogen/Creatinine [Mass ratio] 18.3 mg/mg Normal [facility] Comment on above: Performed By: #### P T, PTT #### [facility] [address] [place] [address] Dr. Shakira Bahena PROTIMEon 09-09-2022 INR Coag (PPP) [Relative time] 0.93 {INR} Normal [facility] Comment on above: Performed By: #### P T, PTT #### [facility] [address] [place] [address] Dr. Shakira Bahena INR GUIDELINES SEE BELOW Normal [facility] [place] Comment on above: Result Comment: SHANA RED INR: 2.0 - 3.0 CONDITIONS NOT LISTED BELOW 2.5 - 3.5 FOR PROSTHETIC HEART VALVE REPLACEMENT 2.5 - 3.5 RECURRENT THROMBOSIS Performed By: #### P T, PTT #### [facility] [address] [place] [address] Dr. Shakira Bahena PT Coag (PPP) [Time] 9.9 s Normal 9.0-11.6 [facility] Comment on above: Performed By: #### P T, PTT #### [facility] [address] [place] [address] Dr. Shakira Bahena PTTon 09-09-2022 aPTT Coag (Bld) [Time] 28.0 s Normal 22.3-36.2 [facility] Comment on above: Performed By: #### P T, PTT #### [facility] [address] [place] [address] Dr. Shakira Bahena URINE MICROSCOPIC ONLYon BACTERIA NONE SEEN Normal NONE SEEN [facility] Comment on above: Performed By: #### U MICRO, ERUR #### [facility] [address] [place] [address] Dr. Shakira Bahena Bacteria identified Cx Nom (U) NOT INDICATED Normal [facility] Comment on above: Performed By: #### U MICRO, ERUR #### [facility] [address] [address] [address] Shakira Bahena CAST NONE SEEN Normal NONE SEEN [facility] Comment on above: Performed By: #### U MICRO, ERUR #### [facility] [address] [address] [address] Shakira Bahena Crystals LM Nom (Urine sed) NONE SEEN Normal NONE SEEN [facility] Comment on above: Performed By: #### U MICRO, ERUR #### [facility] [address] [address] [address] Shakira Bahena Epithelial cells LM Ql (Urine sed) FEW Abnormal NONE SEEN /RARE [facility] Comment on above: Performed By: #### U MICRO, ERUR #### [facility] [address] [place] [address] Dr. Shakira Bahena MUCOUS NONE SEEN Normal NONE SEEN [facility] Comment on above: Performed By: #### U MICRO, ERUR #### [facility] [address] [place] [address] Dr. Shakira Bahena RBC (U) [#/Vol] /uL Abnormal 0-[address] [facility] Comment on above: Performed By: #### U MICRO, ERUR #### [facility] [address] [place] [address] Dr. Shakira Bahena WBC 2-5 Abnormal NONE SEEN [facility] Comment on above: Performed By: #### U MICRO, ERUR #### [facility] [address] [place] [address] Dr. Shakira Bahena MG MAMM SCREEN 3D ERLINDA CADon 08-31-2022 MG MAMM SCREEN 3D ERLINDA CAD Patient: ESMER BEACH Exam Date: 08/31/2022 : 1970 Gender:F Ordering : UVALDO ALBERTO CNP Admission #: [id number] Family : Order #: [id number] CLICK HERE TO VIEW EXAM RADIOLOGY REPORT [...] lung cancer at age 64. LOCATION: [facility] BREAST COMPOSITION: Scattered areas fibroglandular [...] MD on 08/31/2022 at 14:10 Normal [facility] CBC AUTO DIFFon 12-16-2021 BASO # 0.1 103/ul Normal 0.0-0.1 [facility] Comment on above: Performed By: #### C BC #### [facility] [address] [address] [address] Shakira Bahena Basophils/100 WBC (Bld) 0.6 % Normal 0.2-2.0 [facility] Comment on above: Performed By: #### C BC #### [facility] [address] [place] [address] Dr. Shakira Bahena EO # 0.3 103/ul Normal 0.0-0.7 [facility] Comment on above: Performed By: #### C BC #### [facility] [address] [address] [address] Shakira Bahena Eosinophils/100 WBC (Bld) 1.7 % Normal 0.9-7.0 [facility] Comment on above: Performed By: #### C BC #### [facility] [address] [address] [address] Shakira Bahena Erythrocyte distribution width (RBC) [Ratio] 15.6 % Critically high 11.0-15.0 [facility] Comment on above: Performed By: #### C BC #### [facility] [address] [address] [address] Shakira Bahena Hematocrit (Bld) [Volume fraction] 50.7 % Critically high 36.0-48.0 [facility] Comment on above: Performed By: #### C BC #### [facility] [address] [place] [address] Dr. Shakira Bahena Hemoglobin (Bld) [Mass/Vol] 16.0 g/dL Normal 12.0-16.0 [facility] Comment on above: Performed By: #### C BC #### [facility] [address] [place] [address] Dr. Shakira Bahena IG # 0.06 10e3/ul Critically high 0.00-0.03 [facility] Comment on above: Performed By: #### C BC #### [facility] [address] [place] [address] Dr. Shakira Bahena IG % 0.4 % Normal 0.0-0.5 [facility] Comment on above: Performed By: #### C BC #### [facility] [address] [place] [address] Dr. Shakira Bahena LYMPH # 3.7 103/ul Normal 1.2-3.8 [facility] Comment on above: Performed By: #### C BC #### [facility] [address] [place] [address] Dr. Shakira Bahena Lymphocytes/100 WBC (Bld) 23.9 % Normal 20.5-60.0 [facility] Comment on above: Performed By: #### C BC #### [facility] [address] [place] [address] Dr. Shakira Bahena MANUAL DIFF REQ NO Normal [facility] Comment on above: Performed By: #### C BC #### [facility] [address] [place] [address] Dr. Shakira Bahena MCH (RBC) [Entitic mass] 28.7 pg Normal 26.7-34.0 [facility] Comment on above: Performed By: #### C BC #### [facility] [address] [address] [address] Shakira Bahena MCHC (RBC) [Mass/Vol] 31.6 g/dL Normal 29.9-35.2 [facility] Comment on above: Performed By: #### C BC #### [facility] [address] [address] [address] Shakira Bahena MCV (RBC) [Entitic vol] 90.9 fL Normal 81.0-99.0 [facility] Comment on above: Performed By: #### C BC #### [facility] [address] [address] [address] Shakira Bahena MONO # 0.7 103/ul Normal 0.3-0.8 [facility] Comment on above: Performed By: #### C BC #### [facility] [address] [place] [address] Dr. Shakira Bahena Monocytes/100 WBC (Bld) 4.5 % Normal 1.7-12.0 [facility] Comment on above: Performed By: #### C BC #### [facility] [address] [place] [address] Dr. Shakira Bahena NEUT # 10.8 103/ul Critically high 1.4-6.5 [facility] Comment on above: Performed By: #### C BC #### [facility] [address] [place] [address] Dr. Shakira Bahena Neutrophils/100 WBC (Bld) 68.9 % Normal 43.0-75.0 [facility] Comment on above: Performed By: #### C BC #### [facility] [address] [place] [address] Dr. Shakira Bahena Platelet mean volume (Bld) [Entitic vol] 10.0 fL Normal 9.5-13.5 [facility] Comment on above: Performed By: #### C BC #### [facility] [address] [place] [address] Dr. Shakira Bahena PLT 309 103/ul Normal 150-450 [facility] Comment on above: Performed By: #### C BC #### [facility] [address] [place] [address] Dr. Shakira Bahena RBC 5.58 106/ul Critically high 4.20-5.40 [facility] Comment on above: Performed By: #### C BC #### [facility] [address] [place] [address] Dr. Shakira Bahena WBC 15.6 103/ul Critically high 4.0-11.0 [facility] Comment on above: Performed By: #### C BC #### [facility] [address] [place] [address] Dr. Shakira Bahena GLYCOHEMOGLOBIN A1Con 2021 ADA RECOMMENDATION SEE BELOW Normal [facility] Comment on above: Result Comment: ADA RECOMMENDED LIMIT 4.0 - 6.0 ADA THERAPEUTIC TARGET < 7.0 ACTION SUGGESTED > 7.0 Performed By: #### A 1C #### [facility] [address] [place] [address] Dr. Shakira Bahena Glucose [Mass/Vol] 120 mg/dL Normal [facility] Comment on above: Performed By: #### A 1C #### [facility] [address] [place] [address] Dr. Shakira Bahena HbA1c (Bld) [Mass fraction] 5.8 % Normal 4.5-6.2 [facility] Comment on above: Performed By: #### A 1C #### [facility] [address] [place] [address] Dr. Shakira Bahena LIPID PROFILEon 12-16-2021 CHOL-HDL RATIO NORM SEE BELOW Normal [facility] Comment on above: Result Comment: 3.3 - 4.4 LOW RISK 4.4 - 7.1 AVERAGE RISK 7.1 - 11.0 MODERATE RISK >11.0 HIGH RISK Performed By: #### P T, PTT #### [facility] [address] [place] [address] Dr. Shakira Bahena Cholesterol [Mass/Vol] 149 mg/dL Normal <=200 [facility] Comment on above: Performed By: #### P T, PTT #### [facility] [address] [place] [address] Dr. Shakira Bahena Cholesterol in HDL [Mass/Vol] 28 mg/dL Critically low 40-60 [facility] Comment on above: Performed By: #### P T, PTT #### [facility] [address] [address] [address] Shakira Bahena Cholesterol in LDL [Mass/Vol] 80.6 mg/dL Normal [facility] Comment on above: Performed By: #### P T, PTT #### [facility] [address] [address] [address] Shakira Bahena Cholesterol.total/Ch olesterol in HDL [Mass ratio] 5.3 {ratio} Normal [facility] Comment on above: Performed By: #### P T, PTT #### [facility] [address] [address] [address] Shakira Bahena HDL NORMAL > or = 60 mg/dl - LO W CARDIOVASCULAR RISK <40 mg/dl - HIGH CARDIOVASCULAR RISK Normal [facility] Comment on above: Performed By: #### P T, PTT #### [facility] [address] [place] [address] Dr. Shakira Bahena LDL CALC NORMAL SEE BELOW Normal [facility] Comment on above: Result Comment: <100 mg/dl OPTIMAL 100 - 129 mg/dl NEAR OR ABOVE OPTIMAL 130 - 159 mg/dl BORDERLINE HIGH 160 - 189 mg/dl HIGH >190 mg/dl VERY HIGH Performed By: #### P T, PTT #### [facility] [address] [address] [address] Shakira Bahena Triglyceride [Mass/Vol] 202 mg/dL Critically high <=150 [facility] Comment on above: Performed By: #### P T, PTT #### [facility] [address] [address] [address] Shakira Bahena VLDL CALC 40.4 mg/dL Normal [facility] Comment on above: Performed By: #### P T, PTT #### [facility] [address] [address] [address] Shakira Bahena MICROALBUMIN, RAND URon 06-1 mALB <1.3 Normal <=30.0 [facility] Comment on above: Performed By: #### P T, PTT #### [facility] [address] [address] [address] Shakira Bahena PROF 14(COMP METB)on 022 Albumin [Mass/Vol] 3.5 g/dL Normal 3.4-5.0 [facility] Comment on above: Performed By: #### P T, PTT #### [facility] [address] [place] [address] Dr. Shakira Bahena Albumin/Globulin [Mass ratio] 1.0 {ratio} Normal [facility] Comment on above: Performed By: #### P T, PTT #### [facility] [address] [place] [address] Dr. Shakira Bahena ALP [Catalytic activity/Vol] 103 U/L Normal 46-116 [facility] Comment on above: Performed By: #### P T, PTT #### [facility] [address] [place] [address] Dr. Shakira Bahena ALT [Catalytic activity/Vol] 19 U/L Normal 14-59 [facility] Comment on above: Performed By: #### P T, PTT #### [facility] [address] [place] [address] Dr. Shakira Bahena Anion gap [Moles/Vol] 14.8 mmol/L Normal [facility] Comment on above: Performed By: #### P T, PTT #### [facility] [address] [place] [address] Dr. Shakira Bahena AST [Catalytic activity/Vol] 10 U/L Critically low 15-37 [facility] Comment on above: Performed By: #### P T, PTT #### [facility] [address] [place] [address] Dr. Shakira Bahena Bilirubin [Mass/Vol] 0.3 mg/dL Normal 0.2-1.0 [facility] Comment on above: Performed By: #### P T, PTT #### [facility] [address] [place] [address] Dr. Shakira Bahena Calcium [Mass/Vol] 8.6 mg/dL Normal 8.5-10.1 The [facility] Comment on above: Performed By: #### P T, PTT #### [facility] [address] [address] [address] Shakira Bahena Chloride [Moles/Vol] 107 mmol/L Normal 98-107 [facility] Comment on above: Performed By: #### P T, PTT #### [facility] [address] [address] [address] Shakira Bahena CO2 [Moles/Vol] 23.1 mmol/L Normal 21.0-32.0 [facility] Comment on above: Performed By: #### P T, PTT #### [facility] [address] [address] [address] Shakira Bahena Creatinine [Mass/Vol] 0.79 mg/dL Normal 0.55-1.02 [facility] Comment on above: Performed By: #### P T, PTT #### [facility] [address] [place] [address] Dr. Shakira Bahena EGFR-AF [place] >60 Normal >=60 [facility] Comment on above: Performed By: #### P T, PTT #### [facility] [address] [address] [address] Shakira Bahena EGFR-NON AF [place] >60 Normal >=60 [facility] Comment on above: Performed By: #### P T, PTT #### [facility] [address] [place] [address] Dr. Shakira Bahena Globulin (S) [Mass/Vol] 3.4 g/dL Normal [facility] Comment on above: Performed By: #### P T, PTT #### [facility] [address] [place] [address] Dr. Shakira Bahena Glucose [Mass/Vol] 157 mg/dL Critically high 74-106 [facility] Comment on above: Performed By: #### P T, PTT #### [facility] [address] [place] [address] Dr. Shakira Bahena Potassium [Moles/Vol] 3.9 mmol/L Normal 3.5-5.1 [facility] Comment on above: Performed By: #### P T, PTT #### [facility] [address] [address] [address] Shakira Bahena Protein [Mass/Vol] 6.9 g/dL Normal 6.4-8.2 [facility] Comment on above: Performed By: #### P T, PTT #### [facility] [address] [place] [address] Dr. Shakira Bahena Sodium [Moles/Vol] 141 mmol/L Normal 136-145 [facility] Comment on above: Performed By: #### P T, PTT #### [facility] [address] [place] [address] Dr. Shakira Bahena Urea nitrogen [Mass/Vol] 13.0 mg/dL Normal 7.0-18.0 [facility] Comment on above: Performed By: #### P T, PTT #### [facility] [address] [place] [address] Dr. Shakira Bahena Urea nitrogen/Creatinine [Mass ratio] 16.5 mg/mg Normal [facility] Comment on above: Performed By: #### P T, PTT #### [facility] [address] [place] [address] Dr. Shakira Bahena UA RANDOM W/MICROSCOPICon BACTERIA NONE SEEN Normal NONE SEEN [facility] Comment on above: Performed By: #### P T, PTT #### [facility] [address] [place] [address] Dr. Shakira Bahena Bilirubin Ql (U) Negative Normal NEGATIVE [facility] Comment on above: Performed By: #### P T, PTT #### [facility] [address] [place] [address] Dr. Shakira Bahena CAST NONE SEEN Normal NONE SEEN [facility] Comment on above: Performed By: #### P T, PTT #### [facility] [address] [place] [address] Dr. Shakira Bahena Clarity (U) CLEAR Normal CLEAR [facility] Comment on above: Performed By: #### P T, PTT #### [facility] [address] [place] [address] Dr. Shakira Bahena Color (U) LT. YELLOW Normal YELLOW [facility] Comment on above: Performed By: #### P T, PTT #### [facility] [address] [place] [address] Dr. Shakira Bahena Crystals LM Nom (Urine sed) NONE SEEN Normal NONE SEEN [facility] Comment on above: Performed By: #### P T, PTT #### [facility] [address] [place] [address] Dr. Shakira Bahena Epithelial cells LM Ql (Urine sed) RARE Normal NONE SEEN /RARE [facility] Comment on above: Performed By: #### P T, PTT #### [facility] [address] [place] [address] Dr. Shakira Bahena Glucose Ql (U) 100 mg/dl Abnormal NEGATIVE [facility] Comment on above: Performed By: #### P T, PTT #### [facility] [address] [place] [address] Dr. Shakira Bahena Hemoglobin Ql (U) Negative Normal NEGATIVE [facility] Comment on above: Performed By: #### P T, PTT #### [facility] [address] [place] [address] Dr. Shakira Bahena Ketones Ql (U) Negative Normal NEGATIVE [facility] Comment on above: Performed By: #### P T, PTT #### [facility] [address] [place] [address] Dr. Shakira Bahena LEUKOCYTES Negative Normal NEGATIVE [facility] Comment on above: Performed By: #### P T, PTT #### [facility] [address] [place] [address] Dr. Shakira Bahena MUCOUS NONE SEEN Normal NONE SEEN [facility] Comment on above: Performed By: #### P T, PTT #### [facility] [address] [place] [address] Dr. Shakira Bahena Nitrite Ql (U) Negative Normal NEGATIVE [facility] Comment on above: Performed By: #### P T, PTT #### [facility] [address] [place] [address] Dr. Shakira Bahena pH (U) 6.0 [pH] Normal 5-9 [facility] Comment on above: Performed By: #### P T, PTT #### [facility] [address] [place] [address] Dr. Shakira Bahena RBC 0-2 Normal 0-2 [facility] Comment on above: Performed By: #### P T, PTT #### [facility] [address] [place] [address] Dr. Shakira Bahena SPEC GRAVITY 1.010 Normal 1.005-<=1.025 [facility] Comment on above: Performed By: #### P T, PTT #### [facility] [address] [place] [address] Dr. Shakira Bahena UA PROTEIN Negative Normal NEGATIVE/ TRACE [facility] Comment on above: Performed By: #### P T, PTT #### [facility] [address] [place] [address] Dr. Shakira Bahean Urobilinogen Qn (U) 0.2 {Navin'U}/dL Normal 0.2 - 1. 0 [facility] Comment on above: Performed By: #### P T, PTT #### [facility] [address] [place] [address] Dr. Shakira Bahena WBC NONE SEEN Normal NONE SEEN [facility] Comment on above: Performed By: #### P T, PTT #### [facility] [address] [place] [address] Dr. Shakira Bahena LUMBAR SPINE 4 OR 5 [facility] LUMBAR SPINE 4 OR 5 [facility] Department of Radiology [address] [place] [id number] ======== Patient Name: ESMER BEACH : 1970 Sex: F Age: Race: White Pt. Location: 84 Patient Status: D Ordered Date: 01/18/2020 1:45:00 PM Completed Date: 01/18/2020 02:04 PM Requesting Provider: RICARDO JOSEPH Attending Provider: RICARDO JOSEPH Report Copy To: Signs & Symptoms: M48.061 Spinal stenosis, lumbar region without neurogenic ignacio I10 History: [place] Comments: Views (X-RAY, LUMBAR SPINE): AP, Lateral, [...] subluxation Electronically signed: Alma Lopez. Transcribed by: [email or web address], User Resident: Electronically Signed by: HUI MEAD @ 01/30/2020 11:27 AM Normal [facility] Comment on above: Order Comment: Views (X-RAY, LUMBAR SPINE): AP, Lateral, L5-S1 Spot, Flexion, Extension , Weight Bearing?: Y Remote CBCDIF (for [facility] use o nly)on 01-03-2019 Abs Baso 0.05 k/uL Normal 0.00-0.10 [facility] Abs [place] 0.90 k/uL High 0.00-0.86 [facility] Abs Neut 12.73 k/uL High 1.45-7.50 [facility] Basophils/100 WBC (Bld) 0.3 % Normal [facility] Eosinophils (Bld) [#/Vol] 0.27 10*3/uL Normal 0.00-0.45 [facility] Eosinophils/100 WBC (Bld) 1.5 % Normal [facility] Erythrocyte distribution width (RBC) [Ratio] 15.0 % Normal 11.5-15.0 [facility] Hematocrit (Bld) [Volume fraction] 46.9 % High 36.0-46.0 [facility] Hemoglobin (Bld) [Mass/Vol] 16.1 g/dL High 11.5-15.5 [facility] Lymphocytes (Bld) [#/Vol] 3.51 10*3/uL Normal 1.00-4.00 [facility] Lymphocytes/100 WBC (Bld) 20.1 % Normal [facility] MCH (RBC) [Entitic mass] 30.0 pG Normal 26.0-34.0 [facility] MCHC (RBC) [Mass/Vol] 34.3 g/dL Normal 30.5-36.0 [facility] MCV (RBC) [Entitic vol] 87.3 fL Normal 80.0-100.0 [facility] Monocytes/100 WBC (Bld) 5.2 % Normal [facility] Neutrophils/100 WBC (Bld) 72.9 % Normal [facility] Platelet mean volume (Bld) [Entitic vol] 9.4 fL Normal 9.0-12.7 [facility] Platelets (Bld) [#/Vol] 308 10*3/uL Normal 150-400 [facility] RBC (Bld) [#/Vol] 5.37 10*6/uL High 3.90-5.20 [facility] WBC (Bld) [#/Vol] 17.46 10*3/uL High 3.70-11.00 [facility] CNOVSPon 07-13-2018 CNOVSP Visit (SP) Office (HEMAC[facility]) ESMER BEACH ([id number]) 1970 F Date Time Provider Department 07/13/18 2:45 PM VANESSA ESPINOSA HEMACL During your visit today, we recorded the following information about you: Temperature Pulse Respiration Blood pressure 98.4 degrees 99/minute 16/minute 117/102 Weight Height 85.9 kg 1.61 m Vanessa Espinosa MD 07/13/2018 3:35 PM Signed HPI Esmer Dick Beach is a 48 year old female [...] Vanessa Espinosa MD Referring Provider: LACY ALBERTO ([facility]) [[id number]] Allergies As of Date: 07/13/2018 Noted Allergy [...] (FOR REMOTE [facility] USE) [SQRCBCDF] Order #: [id number] STANDING Follow-up and Disposition History Recorded Prescriptions [...] [D72.829] INVALID FOR* Coronary artery disease involving [place] heart *INVALID FOR* Diabetes mellitus (HCC) [E11.9] INVALID FOR* Psychiatric disorder [F99] INVALID FOR* Encounter Status:Closed by VANESSA ESPINOSA MD on 07/13/18 [facility] PROGRESSon 07-13-2018 PROGRESS HNO ID: [id number] Author: Vanessa Espinosa Service: (none) Author Type: Physician Type: Progress Notes Filed: 07/13/2018 3:35 PM Note Text: BAR Esmer Beach is a [...] year - CBC + DIFF (FOR REMOTE [facility] USE) Vanessa Espinosa MD Normal [facility] Remote CBCDIF (for [facility] use o nly)on 07-13-2018 Abs Baso 0.04 k/uL Normal 0.00-0.10 [facility] Abs Wasco 0.82 k/uL Normal 0.00-0.86 [facility] Abs Neut 14.68 k/uL High 1.45-7.50 [facility] Basophils/100 WBC (Bld) 0.2 % Normal [facility] Eosinophils (Bld) [#/Vol] 0.15 10*3/uL Normal 0.00-0.45 [facility] Eosinophils/100 WBC (Bld) 0.8 % Normal [facility] Erythrocyte distribution width (RBC) [Ratio] 14.5 % Normal 11.5-15.0 [facility] Hematocrit (Bld) [Volume fraction] 47.2 % High 36.0-46.0 [facility] Hemoglobin (Bld) [Mass/Vol] 15.8 g/dL High 11.5-15.5 [facility] Lymphocytes (Bld) [#/Vol] 3.48 10*3/uL Normal 1.00-4.00 [facility] Lymphocytes/100 WBC (Bld) 18.2 % Normal [facility] MCH (RBC) [Entitic mass] 29.4 pG Normal 26.0-34.0 [facility] MCHC (RBC) [Mass/Vol] 33.5 g/dL Normal 30.5-36.0 [facility] MCV (RBC) [Entitic vol] 87.9 fL Normal 80.0-100.0 [facility] Monocytes/100 WBC (Bld) 4.3 % Normal [facility] Neutrophils/100 WBC (Bld) 76.5 % Normal [facility] Platelet mean volume (Bld) [Entitic vol] 9.3 fL Normal 9.0-12.7 [facility] Platelets (Bld) [#/Vol] 274 10*3/uL Normal 150-400 [facility] RBC (Bld) [#/Vol] 5.37 10*6/uL High 3.90-5.20 [facility] WBC (Bld) [#/Vol] 19.17 10*3/uL High 3.70-11.00 [facility] BCR-ABL Qualitativeon 2017 BCR-ABL Qualitative (NOTE) Normal [facility] Comment on above: Result Comment: Plea se refer to [facility] Surgical Pathology report, Performed By: #### Elma ALArlene, BCRQL #### [facility] [employer] [address] [phone] Basic Metabolic Panlon 06-15 Anion gap [Moles/Vol] 12 mmol/L Normal 9-18 [facility] Comment on above: Performed By: #### Rosemarie AKMaria Victoria, YONI, HFP, WSR #### [facility] [employer] [address] [place], [place] [address] Calcium [Mass/Vol] 9.4 mg/dL Normal 8.5-10.2 [facility] Comment on above: Performed By: #### Rosemarie AKMaria Victoria, YONI, HFP, WSR #### [facility] [employer] [address] [place], [place] [address] Chloride [Moles/Vol] 108 mmol/L High 97-105 [facility] Comment on above: Performed By: #### YONI RUIZ, HFP, WSR #### [facility] [address] [place] [phone] CO2 [Moles/Vol] 21 mmol/L Low 22-30 [facility] Comment on above: Performed By: #### YONI RUIZ, HFP, WSR #### [facility] [address] [place] [address] Creatinine [Mass/Vol] 0.65 mg/dL Normal 0.58-0.96 [facility] Comment on above: Performed By: #### Rosemarie JOHNSON, YONI, HFP, WSR #### [facility] [address] [place] [address] eGFR- Amer. >60 Normal [facility] Comment on above: Performed By: #### YONI RUIZ, MEDARDO, WSR #### [facility] [address] [address] GFR/1.73 sq M predicted among non-blacks MDRD (S/P/Bld) [Vol rate/Area] mL/min/{1.73_m2} Normal [facility] Comment on above: Result Comment: eGFR (Estimated [...] actual GFR. Performed By: #### YONI RUIZ, HFP, WSR #### [facility] [address] [place] [phone] Glucose [Mass/Vol] 187 mg/dL High 74-99 [facility] Comment on above: Result Comment: The [place] Diabetes Association (ADA) provides guidance for cutoff [...] Standards of Medical Care in Diabetes 2016, [place] [employer] Association. Diabetes Care. 2016.39(Suppl 1). Performed By: #### YONI RUIZ, MEDARDO, WSR #### [facility] [address] [place], [place] [address] Potassium [Moles/Vol] 4.7 mmol/L Normal 3.7-5.1 [facility] Comment on above: Performed By: #### YONI RUIZ, MEDARDO, WSR #### [place] [address] [place] [address] Sodium [Moles/Vol] 141 mmol/L Normal 136-144 [facility] Comment on above: Performed By: #### Rosemarie AKYONI Irene, HFP, WSR #### [facility] [address] [place], [place] [address] Urea nitrogen [Mass/Vol] 14 mg/dL Normal 7-21 [facility] Comment on above: Performed By: #### Rosemarie JOHNSON, YONI, HFP, WSR #### [facility] [address] [place], [place] [address] CALR Exon 9 Mutationon 06-15 CALR Result/Interp Duplicate request Normal [facility] Comment on above: Result Comment: Acco unt Credited SEE RESULT FOR MPNP. DMCKNIGHT 06 16 2018 Performed By: #### C ALR, BCRQL #### [facility] [address] [phone] CALR Reviewed by Duplicate request Normal [facility] Comment on above: Result Comment: Acco unt Credited SEE RESULT FOR MPNP. [id number] Performed By: #### C ALR, BCRQL #### [facility] [employer] [address] [place], [place] [address] CALR Specimen Type Duplicate request Normal [facility] Comment on above: Result Comment: Acco unt Credited SEE RESULT FOR MPNP. [id number] Performed By: #### C ALR, BCRQL #### [facility] [employer] [address] [place], [place] [address] CNOVSPon 06-15-2018 CNOVSP Visit (SP) Office (HEMAC[facility]) ESMER BEACH ([id number]) 1970 F Date Time Provider Department 06/15/18 11:15 AM VANESSA ESPINOSA During your visit today, we recorded the following information about you: Temperature Pulse Respiration Blood pressure 98.3 degrees 76/minute 16/minute 123/65 Weight Height 90.4 kg 1.61 m Vanessa Espinosa MD 06/15/2018 11:39 AM Signed HPI Esmer Jennings Melody is a 48 year old female who [...] ABS GRAN CT + CBC (FOR REMOTE [facility] USE) - BASIC METABOLIC PNL - HEPATIC FUNCTION PNL - SED RATE WESTERGREN - BCR-ABL QUALITATIVE MULTIPLEX RT-PCR - JAK2 V617F MUTATION BLOOD - MPL MUTATION ANALYSIS BLOOD - CALR EXON 9 MUTATION ANALYSIS BLOOD 2. 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, unspecified vessel or lesion type (HCC) [I25.118] Other specified diabetes mellitus without complication, with long-term current use of insulin (HCC) [E13.9, Z79.4] Psychiatric disorder [F99] Order(s):ABS GRAN CT + CBC (FOR REMOTE [facility] USE) [SQRAGCBC] Order #: [id number] FUTURE BASIC METABOLIC PNL [SQBMP] Order #: [id number] FUTURE HEPATIC FUNCTION PNL [SQHFP] Order #: [id number] FUTURE SED RATE WESTERGREN [SQWSR] Order #: [id number] FUTURE BCR-ABL QUALITATIVE MULTIPLEX RT-PCR [SQBCRQL] Order #: [id number] FUTURE JAK2 V617F MUTATION BLOOD [SQJAK2] Order #: [id number] FUTURE MPL MUTATION ANALYSIS BLOOD [SQMPL] Order #: [id number] FUTURE CALR EXON 9 MUTATION ANALYSIS BLOOD [SQCALR] Order #: [id number] FUTURE Disposition: Return in about 4 weeks [...] [D72.829] INVALID FOR* Coronary artery disease involving [place] heart *INVALID FOR* Diabetes mellitus (HCC) [E11.9] INVALID FOR* Psychiatric disorder [F99] INVALID FOR* Encounter Status:Closed by VANESSA ESPINOSA MD on 06/15/18 Normal [facility] Hepatic Functn Panelon 06-15 Albumin [Mass/Vol] 4.2 g/dL Normal 3.9-4.9 [facility] Comment on above: Performed By: #### J AK2, YONI, HFP, WSR #### [facility] [employer] [address] [place], [place] [address] ALP [Catalytic activity/Vol] 99 U/L Normal 34-123 [facility] Comment on above: Performed By: #### oRsemarie AK2, YONI, HFP, WSR #### [facility] [address] [place], [place] [address] ALT [Catalytic activity/Vol] 18 U/L Normal 7-38 [facility] Comment on above: Performed By: #### Rosemarie AK2, BMP, HFP, WSR #### [facility] [address] [place] [phone] AST [Catalytic activity/Vol] 19 U/L Normal 13-35 [facility] Comment on above: Performed By: #### Rosemarie AK2, BMP, HFP, WSR #### [facility] [address] [place] [phone] Bilirubin [Mass/Vol] mg/dL Low 0.2-1.3 [facility] Comment on above: Performed By: #### Rosemarie AK2, BMP, HFP, WSR #### [address] [place] [address] [place] [phone] Bilirubin,Conjugated <0.2 Normal <0.2 [facility] Comment on above: Performed By: #### Rosemarie AK2, BMP, HFP, WSR #### [place] [address] [place] [phone] Protein [Mass/Vol] 7.1 g/dL Normal 6.3-8.0 [facility] Comment on above: Performed By: #### Rosemarie AK2, BMP, HFP, WSR #### [facility] [address] [place] [phone] JAK2 V617F Mutationon 2017 JAK2 V617F Interp Duplicate request Normal [facility] Comment on above: Result Comment: Acco unt Credited SEE RESULT FOR MPNP. 2017 Performed By: #### Rosemarie AK2, BMP, HFP, WSR #### [facility] [address] [phone] JAK2 V617F Spec Type Duplicate request Normal [facility] Comment on above: Result Comment: Acco unt Credited SEE RESULT FOR MPNP. 2017 Performed By: #### Rosemarie AK2, BMP, HFP, WSR #### [facility] [address] [phone] Molecular Path Rev Duplicate request Normal [facility] Comment on above: Result Comment: Acco unt Credited SEE RESULT FOR MPNP. DM2017 Performed By: #### J AK2, BMP, HFP, WSR #### [facility] [address] [place], [place] [address] MPL Mutationon 06-15-2018 MPL Mutation Interp Duplicate request Normal [facility] Comment on above: Result Comment: Acco unt Credited SEE RESULT FOR MPNP. DM2017 Performed By: #### M PL #### [facility] [address] [place], [place] [address] Myeloprolif Neopl Pnl Bloodo n 06-15-2018 Myelo Neopl Pnl Bld (NOTE) Normal [facility] Comment on above: Result Comment: Plea se refer to [facility] Surgical Pathology report, . Performed By: #### M PNP ####[facility] [address] [place], [place] [phone] PROGRESSon 06-15-2018 PROGRESS HNO ID: [id number] Author: Vanessa Espinosa Service: (none) Author Type: [...] ABS GRAN CT + CBC (FOR REMOTE [facility] USE) - BASIC METABOLIC PNL - HEPATIC FUNCTION PNL - SED RATE WESTERGREN - BCR-ABL QUALITATIVE MULTIPLEX RT-PCR - JAK2 V617F MUTATION BLOOD - MPL MUTATION ANALYSIS BLOOD - CALR EXON 9 MUTATION ANALYSIS BLOOD 2. 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, [...] ABS GRAN CT + CBC (FOR REMOTE C USE) - BASIC METABOLIC PNL - HEPATIC [...] F99 See above Vanessa Espinosa MD Normal [facility] Remote Abs Gran + CBC (for F use only)on 06-15-2018 Absol Gran Count 12.48 k/uL High 1.45-7.50 [facility] Erythrocyte distribution width (RBC) [Ratio] 14.7 % Normal 11.5-15.0 [facility] Hematocrit (Bld) [Volume fraction] 46.8 % High 36.0-46.0 [facility] Hemoglobin (Bld) [Mass/Vol] 15.4 g/dL Normal 11.5-15.5 [facility] MCH (RBC) [Entitic mass] 29.2 pG Normal 26.0-34.0 [facility] MCHC (RBC) [Mass/Vol] 32.9 g/dL Normal 30.5-36.0 [facility] MCV (RBC) [Entitic vol] 88.8 fL Normal 80.0-100.0 [facility] Platelet mean volume (Bld) [Entitic vol] 9.1 fL Normal 9.0-12.7 [facility] Platelets (Bld) [#/Vol] 279 10*3/uL Normal 150-400 [facility] RBC (Bld) [#/Vol] 5.27 10*6/uL High 3.90-5.20 [facility] WBC (Bld) [#/Vol] 17.10 10*3/uL High 3.70-11.00 [facility] SURGICAL PATHOLOGYon [id number] SURGICAL PATHOLOGY PROCEDURE REPORT Specimen originated from [facility] Specimen #: [id number] Submitting Physician: VANESSA ESPINOSA MD SPECIMEN SUBMITTED [...] this sample, and cDNA prepared by reverse supervisor rod placing. Multiplex RT-PCR studies were performed using fluorescently [...] developed and its performance characteristics determined by [facility]'s [facility] Pathology and Laboratory [facility] [place] ([facility]). It has not been cleared or approved by the FDA. [facility] is regulated under CLIA as qualified to perform high-complexity testing. This test is used for clinical purposes. It should not be regarded as investigational or for research. As Reviewed by: Nahomy PIERRE/juan 06/20/2018 Procedure Pathologist: Nahomy Galarza M.D. Electronic [...] sequencing was performed on the Illumina instrument ([place], [place]). A customized bioinformatic pipeline was used to align the sequencing reads to the reference human genome (GRCh37/hg19). Benign common polymorphisms are not reported. Limitations: Sequence changes outside the analyzed regions, including intronic, noncoding, and splice-site variants, will not be identified by this test. The lower limit of detection of this assay is approximately 1% allele proportion for the JAK2 [id number] single nucleotide variant and approximately 5% allele [...] developed and its performance characteristics determined by [facility]'s [facility] Pathology [facility] [place] ([facility]). It has not been cleared or approved by the FDA. [facility] is regulated under CLIA as qualified to perform high-complexity testing. This test is used for clinical purposes. It should not be regarded as investigational or for research. As Reviewed by: Nahomy Galarza M.D. IGNACIO/josh 06/22/18 References: Mark BA, Lux A, Raúl R, Zuri J, Servando MJ, Bessie Olvera MM, et al. The 2016 revision to the World Health Organization (WHO) classification of myeloid neoplasms and acute leukemia. Blood 2016;127: 2391-405. NCCN Guidelines, Myeloproliferative Neoplasms, Version 2.2018. Erik K, Silvio KEBEDE. Genomics of Myeloproliferative Neoplasms. J Clin Oncol. 2016Sep 20;35(9):947-954. Procedure Pathologist: Nahomy Galarza M.D. Electronic Signature CLINICAL DATA None provided. Date of Report: Date of Procedure: 06/15/2018 Date of Receipt: 06/16/2018 Submitted: VANESSA ESPINOSA MD Location: [facility] Diagnostic interpretation performed at [facility], [address] [place] [address]. Normal [facility] Sed Rate Westergrenon 2017 Sed Rate Westergren 2 mm/hr Normal 0-20 [facility] Comment on above: Performed By: #### J AK2, BMP, HFP, WSR #### [facility] [address] [address] Vital Signs Date Time Vital Sign Value Performing Clinician Faci lity 08-06-2024 15:11-0500 Body height 160 cm Lacy Remy EXECUTIVE SEARCH CONSULTANT Work Phone: [facility] 08-06-2024 15:11-0500 Body mass index (BMI) [Ratio] 33.44 kg/m2 Lacy Remy EXECUTIVE SEARCH CONSULTANT Work Phone: [facility] 08-06-2024 15:11-0500 Body temperature 97.59 [degF] Lacy Juniorfaustinoz EXECUTIVE SEARCH CONSULTANT Work Phone: [facility] 08-06-2024 15:11-0500 Body weight 85.64 kg Lacy Juniorfaustinoz EXECUTIVE SEARCH CONSULTANT Work Phone: [facility] 08-06-2024 15:11-0500 Diastolic blood pressure 86 mm[Hg] Lacy Opalz EXECUTIVE SEARCH CONSULTANT Work Phone: [facility] 08-06-2024 15:11-0500 Heart rate 107 /min Lacy Opalz EXECUTIVE SEARCH CONSULTANT Work Phone: [facility] 08-06-2024 15:11-0500 Respiratory rate 20 /min Lacy Opalz EXECUTIVE SEARCH CONSULTANT Work Phone: [facility] 08-06-2024 15:11-0500 SaO2% (BldA) [Mass fraction] 96 % Lacy Opalz EXECUTIVE SEARCH CONSULTANT Work Phone: [facility] 08-06-2024 15:11-0500 Systolic blood pressure 142 mm[Hg] Lacy Aichholz EXECUTIVE SEARCH CONSULTANT Work Phone: [facility] 05-22-2024 09:00-0500 Body height 160 cm Lacy Aichholz EXECUTIVE SEARCH CONSULTANT Work Phone: [facility] 05-22-2024 09:00-0500 Body mass index (BMI) [Ratio] 34.33 kg/m2 Lacy Aichholz EXECUTIVE SEARCH CONSULTANT Work Phone: [facility] 05-22-2024 09:00-0500 Body temperature 98.49 [degF] Lacy Juniorhholz EXECUTIVE SEARCH CONSULTANT Work Phone: [facility] 05-22-2024 09:00-0500 Body weight 87.91 kg Lacy Aichholz EXECUTIVE SEARCH CONSULTANT Work Phone: [facility] 05-22-2024 09:00-0500 Diastolic blood pressure 78 mm[Hg] Lacy Aichholz EXECUTIVE SEARCH CONSULTANT Work Phone: [facility] 05-22-2024 09:00-0500 Heart rate 70 /min Lacy Juniorhholz EXECUTIVE SEARCH CONSULTANT Work Phone: [facility] 05-22-2024 09:00-0500 Respiratory rate 19 /min Lacy Juniorhholz EXECUTIVE SEARCH CONSULTANT Work Phone: [facility] 05-22-2024 09:00-0500 SaO2% (BldA) [Mass fraction] 97 % Lacy Juniorhholz EXECUTIVE SEARCH CONSULTANT Work Phone: [facility] 05-22-2024 09:00-0500 Systolic blood pressure 110 mm[Hg] Lacy Aichholz EXECUTIVE SEARCH CONSULTANT Work Phone: [facility] Encounters Encounter Date Encounter Type Care Provider Facility Start: 08-28-2024 End: 08-28-2024 Refill Lacy Denisholz EXECUTIVE SEARCH CONSULTANT Work Phone: [facility] Comment on above: URI, acute (Primary Dx) Start: 08-27-2024 End: 08-27-2024 ambulatory Edgardo Menon MD Facility: [facility] Start: 08-10-2024 End: 08-10-2024 Clinisync Result Encounter Generic External Data Provider [facility] External Department Unsolicited Start: 08-10-2024 End: 08-10-2024 Clinisync Result Encounter Generic External Data Provider [facility] External Department Unsolicited Start: 08-06-2024 End: 08-06-2024 Office outpatient visit 25 minutes Lacy Alberto EXECUTIVE SEARCH CONSULTANT Work Phone: [facility] Comment on above: Type 2 diabetes josselin itus without complication, without long- term current use of insulin (CMS/HCC) (Primary Dx); Bipolar disorder, current episode mixed, mild (CMS/HCC); Type 2 diabetes mellitus with other specified complication (CMS/HCC); Chronic obstructive pulmonary disease, unspecified (CMS/HCC); Type 2 diabetes mellitus with diabetic polyneuropathy (CMS/HCC); Arteriosclerosis of coronary artery (CMS/HCC); Anxiety and depression (CMS/HCC); Cervical spinal stenosis; Spondylosis of 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 Start: 08-06-2024 End: 08-06-2024 ambulatory LACY REMY Not Available Start: 08-06-2024 End: 08-06-2024 Bamboo flowsheet Lacynatanael Alberto EXECUTIVE SEARCH CONSULTANT Work Phone: [facility] Start: 08-06-2024 End: 08-06-2024 Bamboo flowsheet Lacy Remy EXECUTIVE SEARCH CONSULTANT Work Phone: [facility] Start: 07-30-2024 End: 07-30-2024 ambulatory Edgardo Menon MD Facility: [facility] Start: 07-23-2024 End: 07-23-2024 Orders Only Lacy Alberto EXECUTIVE SEARCH CONSULTANT Work Phone: [facility] Comment on above: 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 (Primary Dx) Start: 06-25-2024 End: 06-25-2024 Telephone encounter Lacynatanael Alberto EXECUTIVE SEARCH CONSULTANT Work Phone: [facility] Start: 05-28-2024 End: 05-28-2024 Refill Lacy Aichholz EXECUTIVE SEARCH CONSULTANT [facility]: [facility] Comment on above: Type 2 diabetes josselin itus without complication, without long- term current use of insulin (CMS/HCC) (Primary Dx) Start: 05-22-2024 End: 05-22-2024 Bamboo flowsheet Lacy Aichholz EXECUTIVE SEARCH CONSULTANT Work Phone: [facility] Start: 05-22-2024 End: 05-22-2024 Bamboo flowsheet Lacy Aichholz EXECUTIVE SEARCH CONSULTANT Work Phone: [facility] Start: 05-22-2024 End: 05-22-2024 Patient encounter procedure Lacy Opalz EXECUTIVE SEARCH CONSULTANT Work Phone: [facility] Comment on above: Encounter for subseq uent annual wellness visit (AWV) in Medicare patient (Primary Dx); Type 2 diabetes mellitus with diabetic polyneuropathy (CMS/HCC); Angina pectoris, unspecified (CMS/HCC); Chronic obstructive pulmonary disease, unspecified (CMS/HCC); BMI 32.0-32.9,adult; Type 2 diabetes mellitus without complication, without long-term current use of insulin (CMS/HCC); Arteriosclerosis of coronary artery (CMS/HCC); Tobacco use; Mixed hyperlipidemia (CMS/HCC); Spondylosis of 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; Bipolar disorder, current episode mixed, mild (CMS/HCC); Anxiety and depression (CMS/HCC) Start: 05-22-2024 End: 05-22-2024 ambulatory LACY AICHHOLZ Not Available Start: 04-30-2024 End: 05-01-2024 Refill Lacy Aichholz EXECUTIVE SEARCH CONSULTANT Work Phone: [facility] Comment on above: Type 2 diabetes josselin itus without complication, without long- term current use of insulin (CMS/HCC) Start: 04-05-2024 End: 04-05-2024 Refill Lacy Aichholz EXECUTIVE SEARCH CONSULTANT Work Phone: [facility] Comment on above: Type 2 diabetes josselin itus without complication, without long- term current use of insulin ([facility]) Start: 03-23-2024 End: 03-23-2024 Clinisync Result Encounter Lacy Aichholz EXECUTIVE SEARCH CONSULTANT Work Phone: [facility] Unsolicited Start: 03-23-2024 End: 03-23-2024 Clinisync Result Encounter Lacy Aichholz EXECUTIVE SEARCH CONSULTANT Work Phone: [facility] Unsolicited Start: 03-23-2024 End: 03-23-2024 Refill Lacy Aichholz EXECUTIVE SEARCH CONSULTANT Work Phone: [facility] Comment on above: Type 2 diabetes josselin itus without complication, without long- term current use of insulin ([facility]) (Primary Dx) Start: 02-27-2024 End: 02-27-2024 Telephone encounter Lacy Aichholz EXECUTIVE SEARCH CONSULTANT Work Phone: [facility] Start: 11-17-2023 End: 11-17-2023 ambulatory LACY AICHHOLZ Not Available Start: 09-09-2022 End: 09-10-2022 ambulatory PROFESSOR OF MANAGEMENT LACY AICHHOLZ Facility:[facility] Start: 08-31-2022 End: 09-01-2022 ambulatory PROFESSOR OF MANAGEMENT LACY AICHHOLZ Facility:[facility] Start: 06-07-2022 End: 06-08-2022 ambulatory PROFESSOR OF MANAGEMENT LACY AICHHOLZ Facility:[facility] Start: 12-16-2021 End: 12-17-2021 ambulatory PROFESSOR OF MANAGEMENT LACY AICHHOLZ Facility:[facility] Procedures Date Procedure Procedure Detail Performing Clinician Start: 08-10-2024 Mri spinal canal cer vical w/o contrast matrl Generic External Data Provider Start: 08-06-2024 Hemoglobin glycosyla ronna a1c Lacy Aichholz EXECUTIVE SEARCH CONSULTANT Work Phone: Start: 03-23-2024 ALL CBC WITH AUTO DIFF Lacy Aichholz EXECUTIVE SEARCH CONSULTANT Work Phone: Start: 11-17-2023 Mammography Lacy means NP Work Phone: Plan of Treatment Date Care Activity Detail Author Start: 06-04-2025 End: 06-04-2025 Patient encounter procedure 06/04/2025 10:00 AM EST Office Visit [facility] [address] [place] [phone] Lacy Alberto, DOMINIC [address] [place] [phone] [facility] Start: 05-22-2025 Medicare Annual Well ness (AWV) Medicare Annual Wellness (AWV) [facility] Start: 03-23-2025 Urine screening for protein Diabetes: Urine Protein Screening [facility] Start: 11-16-2024 Screening for malign ant neoplasm of breast Mammogram [facility] Start: 11-16-2024 Screening for malign ant neoplasm of colon [facility] Start: 11-03-2024 Hemoglobin A1c measurement Irene betes: Hemoglobin A1C [facility] Start: 10-08-2024 End: 10-08-2024 Patient encounter procedure 10/08/2024 1:00 PM EDT Office Visit [facility] [address] [place] [phone] Lacy Alberto, DOMINIC [address] [place] [phone] [facility] Start: 08-06-2024 End: 08-06-[address] [facility] Comment on above: Arteriosclerosis of coronary [...] procedure 07/11/2024 2:40 PM EST Office Visit [facility] [address] [place] [phone] Lacy Alberto, DOMINIC [address] [place] [phone] [facility] Start: 06-22-2024 Hemoglobin A1c measurement Irene betes: Hemoglobin A1C [facility] Start: 06-21-2024 End: 06-21-2024 Patient encounter procedure 06/21/2024 10:30 AM EST Office Visit [facility] [address] [place] [phone] Lacy Alberto, DOMINIC [address] [place] [phone] [facility] Start: 05-22-2024 End: 05-22-2025 MR Lumbar spine WO contrast MR lumbar spine wo contrast Imaging Routine Spondylosis of 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 Expected: 05/22/2024 (Approximate), Expires: 05/22/2025 [facility] Work Phone: Comment on above: Expected: 05/22/2024 (Approximate), Expires: 05/22/2025 Start: 05-22-2024 End: 05-22-[address] [facility] Comment on above: BMI 32.0-32.9,adult (Primary Dx); Type 2 diabetes mellitus with diabetic polyneuropathy (CMS/HCC); Angina pectoris, unspecified (CMS/HCC); Chronic obstructive pulmonary disease, unspecified (CMS/HCC); Type 2 diabetes mellitus without complication, without long-term current use of insulin (CMS/HCC); Arteriosclerosis of coronary artery (CMS/HCC); Tobacco use; Mixed hyperlipidemia ([facility]/HCC) Start: 03-04-2024 Influenza vaccination Influenz a Vaccine (#1) [facility] Start: 12-19-2020 Hemoglobin A1c measurement Irene betes: Hemoglobin A1C [facility] Start: 01-05-1998 Screening for malign ant neoplasm of cervix HPV/Cotest [facility] Start: 01-05-1989 Screening for malign ant neoplasm of cervix Pap Smear [facility] Start: 01-05-1987 Urine screening for protein Diabetes: Urine Protein Screening [facility] Start: 01-05-1978 Glaucoma screening Diabetes: R etinopathy Screening [facility] Start: 1968 Medicare Annual Well ness (AWV) Medicare Annual Wellness (AWV) [facility] Start: 1968 Screening for malign ant neoplasm of colon [facility] Payers Date Payer Category Payer Medicaid [id number] 2019 Unknown 2019 Medicare (Managed Care) [facility] [id number] 2015 Medicare [id number] 1968 Unknown [id number]. 593 1968 Unknown [id number] [id number]. 593 1968 Unknown [id number] [id number]. 593 1968 Unknown [id number] [id number]. 593 1968 Unknown [id number] [id number]. 1259 1968 Unknown [id number] [id number]. 1259 1968 Unknown [id number] [id number]. 1259 1968 Unknown [id number] [id number]. 196 1968 Unknown [id number] [id number]. 196 1959 Medicaid [id number] 1959 Unknown [id number] Social History Date Type Detail Facility Start: 11-17-2023 Tobacco smoking stat [facility] Smokes tobacco daily [facility] History of [...] s of coffe and 6 soda daily [facility] Start: 1970 Sex assigned at Not on file N [facility] Clinical Notes 02-27-2024 to 08-06-2024 Lacy Alberto NP - 08/06/2024 6:39 PM Tammie Alberto, DOMINIC - 08/06/2024 6:37 PM GODFRE[facility] SCOTT - [...] asked her to reach out to pain [facility] for this Fu in 2 months Associated [...] Lumbar back pain: Daily pain, went to [facility] pain mgmt, they had wanted her to [...] (ABILIFY) 5 mg, Oral, Daily Continuous Glucose Road Machine Runner (FreeStyle Helen 2 [place]) device 1 each, Does not apply, Daily [...] complication, without long-term current use of insulin (CMS/[facility]) - Primary Check blood sugars daily, notify [...] Type 2 diabetes mellitus with diabetic polyneuropathy ([facility]) Recommend good blood glucose control Freq foot examinations or s/s open wounds Type 2 diabetes mellitus with other specified complication ([facility]) Associated Problem(s): Anxiety and depression (CMS/[facility]) Current meds lexapro and abilify Associated Problem(s): Bipolar disorder, current episode mixed, mild (CMS/[facility]) Current meds: lexapro and abilify Associated Problem(s): Type 2 diabetes mellitus without complication, without long-term current use of insulin ([facility]) Check blood sugars daily, notify if <70 [...] again Associated Problem(s): Arteriosclerosis of coronary artery ([facility]) Not compliant with statin, asa, or b christiano use Associated Problem(s): Chronic obstructive pulmonary disease, unspecified ([facility]) Recommend quitting smoking No daily inhaler use Associated Problem(s): Type 2 diabetes mellitus with diabetic polyneuropathy ([facility]) Recommend good blood glucose control Freq foot examinations or s/s open wounds documented in this encounter [facility] 08-06-2024 Instructions Lacy Alberto NP - 08/06/2024 3:00 PM EST Increase ozempic to 1mg daily Continue with pain mgmt documented in this encounter [facility] 07-23-2024 History of Presen t illness Narrative Associated Problem(s): Spondylosis of 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 OARRS reviewed Will provide a refill of pain medication until seen by pain mgmt documented in this encounter [facility] 06-25-2024 Telephone encount er Note Please contact pt, her insurance company denied her MRI lumbar spine, states she needs to do 6 weeks PT Is she willing to do this, or does she want a referral to pain mgmt, and if she wants a referral: [place]? [place] [facility] 06-25-2024 Miscellaneous Notes Formattin g of this note might be different from the original. Please contact pt, her insurance company denied her MRI lumbar spine, states she needs to do 6 weeks PT Is she willing to do this, or does she want a referral to pain mgmt, and if she wants a referral: [place]? [place] documented in this encounter [facility] 05-22-2024 History of Presen t illness Narrative [...] order for a Rolator walker Fax number [phone] Pt is asking for a handicap plaque [...] (ABILIFY) 5 mg, Oral, Daily Continuous Glucose Road Machine Runner (FreeStyle Helen 2 [place]) device 1 each, Does not apply, Daily Continuous Glucose Road Machine Runner (FreeStyle Helen 3 [place]) device 1 each, Does not apply, Daily [...] Visit Bipolar disorder, current episode mixed, mild (CMS/[facility]) Relevant Medications ARIPiprazole (Abilify) 5 MG tablet escitalopram (Lexapro) 10 MG tablet Anxiety and depression ([facility]/HCC) Relevant Medications escitalopram (Lexapro) 10 MG tablet Arteriosclerosis of coronary artery ([facility]/HCC) Does not take stating therapy, or b christiano, does take ASA Angina pectoris, unspecified ([facility]) Hx of CAD, no active angina, does [...] wo contrast Chronic obstructive pulmonary disease, unspecified (CMS/HCC) Needs to quit smoking Mixed hyperlipidemia ([facility]) Declines use of statin therapy Advised risk for stroke, OK, without use Type 2 diabetes mellitus without complication, without long-term current use of insulin ([facility]) Check blood sugars daily, notify if <70 [...] MG/DOSE,) 2 MG/3ML solution pen-injector Continuous Glucose Road Machine Runner (FreeStyle Helen 3 [place]) device RESOLVED: BMI 32.0-32.9,adult Type 2 diabetes mellitus with diabetic polyneuropathy ([facility]/HCC) Need for tight blood sugar control Tobacco use The patient has been advised of the risks of continued smoking: stroke, OK, all forms of cancer, lung disease, and [...] yearly and prn Associated Problem(s): Mixed hyperlipidemia ([facility]) Declines use of statin therapy Advised risk for stroke, OK, without use Associated Problem(s): Tobacco use The patient has been advised of the risks of continued smoking: stroke, OK, all forms of cancer, lung disease, and . Options for quitting smoking include: cold turkey, hypnosis, acupuncture, nicotine replacement meds (gum, lozenges, and patches), Buproprion, and Varenicline. At this time pt is encouraged to evaluate their goals for wanting to quit smoking, and reach out to provider when ready to start this process Associated Problem(s): Arteriosclerosis of coronary artery ([facility]) Does not take stating therapy, or b christiano, does take ASA Associated Problem(s): Angina pectoris, unspecified ([facility]) Hx of CAD, no active angina, does not take statin or b christiano, pt declines to take Associated Problem(s): Type 2 diabetes mellitus without complication, without long-term current use of insulin ([facility]) Check blood sugars daily, notify if <70 [...] continue to use documented in this encounter [facility] 05-22-2024 Instructions Lacy Alberto NP - 05/22/2024 9:00 AM EST Order MRI documented in this encounter [facility] 04-30-2024 Telephone encount er Note Patient is asking if she can get a handicap placard? MUKESH [facility] 04-30-2024 Miscellaneous Notes Formattin g of this note might be different from the original. Patient is asking if she can get a handicap placard? JN Patient said she did go up to .5 documented in this encounter [facility] 04-30-2024 Telephone encount er Note Patient said she did go up to .5 [facility] 03-23-2024 Telephone encount er Note Call from [facility] Er, Dr Nobles... pt in er asking for refill of ozempic, has been out for 6 months. Blood sugar 289 I told him I would order it, needs to go to [facility], but it may require a prior authorization to get, and that would not happened until next week if needed. Also told him to have her make a fu appt with our office, as it had been several months since she was last seen [facility] 03-23-2024 Miscellaneous Notes Formattin g of this note might be different from the original. Call from [facility] Er, Dr Nobles... pt in er asking for refill of ozempic, has been out for 6 months. Blood sugar 289 I told him I would order it, needs to go to [facility], but it may require a prior authorization to get, and that would not happened until next week if needed. Also told him to have her make a fu appt with our office, as it had been several months since she was last seen documented in this encounter [facility] 02-27-2024 Telephone encount er Note pt called needing a new free style helen burnt lime drawer sent into [employer] her old one no longer works and is in need of a new one [facility] 02-27-2024 Miscellaneous Notes Formattin g of this note might be different from the original. pt called needing a new free style helen burnt lime drawer sent into [employer] her old one no longer works and is in need of a new one documented in this encounter [facility] Evaluation note Diagnosis Type 2 diabetes mellitus without complication, without long-term current use of insulin (CMS/HCC) documented in this encounter [facility]* Diagnosis Type 2 diabetes mellitus [...] of insulin (CMS/HCC) documented in this encounter [facility]* Diagnosis Type 2 diabetes mellitus [...] and depression (CMS/HCC) documented in this encounter [facility]* Diagnosis Type 2 diabetes mellitus [...] insulin (CMS/HCC)- Primary documented in this encounter [facility]* Diagnosis Type 2 diabetes mellitus without complication, without long-term current use of insulin (CMS/HCC)- Primary documented in this encounter [facility]* Diagnosis Type 2 diabetes mellitus without complication, without long-term current use of insulin (CMS/HCC)- Primary documented in this encounter [facility]* Diagnosis Type 2 diabetes mellitus [...] without myelopathy- Primary documented in this encounter [facility]* Diagnosis Type 2 diabetes mellitus [...] long-term current use of insulin (CMS/HCC)- Primary Bipolar disorder, current episode mixed, mild (CMS/HCC) Type 2 diabetes mellitus with other specified complication (CMS/HCC) Chronic obstructive pulmonary disease, unspecified (CMS/HCC) Type 2 diabetes mellitus with diabetic polyneuropathy (CMS/HCC) Arteriosclerosis of coronary artery (CMS/HCC) Anxiety and depression (CMS/HCC) Cervical spinal stenosis Spinal stenosis in cervical region Spondylosis of 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 documented in this encounter [facility]* Diagnosis Type 2 diabetes mellitus [...] long-term current use of insulin (CMS/HCC)- Primary Bipolar disorder, current episode mixed, mild (CMS/HCC) Type 2 diabetes mellitus with other specified complication (CMS/HCC) Chronic obstructive pulmonary disease, unspecified (CMS/HCC) Type 2 diabetes mellitus with diabetic polyneuropathy (CMS/HCC) Arteriosclerosis of coronary artery (CMS/HCC) Anxiety and depression (CMS/HCC) Cervical spinal stenosis Spinal stenosis in cervical region Spondylosis of 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 URI, acute- Primary Acute upper respiratory infections of unspecified site documented in this encounter [facility] Summary [...] complication, without long-term current use of insulin ([facility]) Lacy Alberto NP [address] [place] [address] Referral ID Status Reason Start Date Expiration Date V isits Requested Visits Authorized [id number] Pending Review 04/05/2024 10/02/2024 1 1 Referral ID Status Reason Start Date Expiration Date Visits Re quested Visits Authorized [id number] Closed 1 1 Additional Source Comments INFORMATION SOURCE (unrecogn ized section and content) DATE CREATED AUTHOR 01/21/2019 [facility] DATE CREATED AUTHOR AUTHOR'S ORGANIZ ATION 01/30/2020 [facility] DATE CREATED AUTHOR AUTHOR'S ORGANIZ ATION 09/13/2022 [facility] DATE CREATED AUTHOR AUTHOR'S ORGANIZ ATION 08/08/2024 [facility] EPIC DATE CREATED AUTHOR AUTHOR'S ORGANIZ ATION 08/30/2024 [facility] Care Teams (unrecognized sec tion and content) 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 Start Date End Date Fred Pryor MD [address] [place] [address] PCP - General Family Medicine 11/17/23 Lacy Alberto NP [address] [place] [address] Referring Physician Family Medicine 07/04/22 Lacy Alberto NP [address] [place] [address] Nurse Practitioner Family Medicine 11/17/23 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 Start Date End Date Fred Pryor MD [address] [place] [address] PCP - General Family Medicine 11/17/23 Lacy Alberto NP [address] [place] [address] Referring Physician Family Medicine 07/04/22 Lacy Alberto NP [address] [place] [address] Nurse Practitioner Family Medicine 11/17/23 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 Start Date End Date Fred Pryor MD [address] [place] [address] PCP - General Family Medicine 11/17/23 Lacy Alberto NP [address] [place] [address] Referring Physician Family Medicine 07/04/22 Lacy Alberto NP [address] [place] [address] Nurse Practitioner Family Medicine 11/17/23 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 Start Date End Date Fred Pryor MD [address] [place] [address] PCP - General Family Medicine 11/17/23 Lacy Alberto NP [address] [place] [address] Referring Physician Family Medicine 07/04/22 Lacy Alberto NP [address] [place] [address] Nurse Practitioner Family Medicine 11/17/23 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 Start Date End Date Fred Pryor MD [address] [place] [address] PCP - General Family Medicine 11/17/23 Lacy Alberto NP [address] [place] [address] Referring Physician Family Medicine 07/04/22 Lacy Alberto NP [address] [place] [address] Nurse Practitioner Family Medicine 11/17/23 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 Start Date End Date Fred Pryor MD [address] [place] [address] PCP - General Family Medicine 11/17/23 Lacy Alberto NP [address] [place] [address] Referring Physician Family Medicine 07/04/22 Lacy Alberto NP [address] [place] [address] Nurse Practitioner Family Medicine 11/17/23 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 Start Date End Date Fred Pryor MD [address] [place] [address] PCP - General Family Medicine 11/17/23 Lacy Alberto NP [address] [place] [address] Referring Physician Family Medicine 07/04/22 Lacy Alberto NP [address] [place] [address] Nurse Practitioner Family Medicine 11/17/23 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 Start Date End Date Fred Pryor MD [address] [place] [address] PCP - General Family Medicine 11/17/23 Lacy Alberto NP [address] [place] [address] Referring Physician Family Medicine 07/04/22 Lacy Alberto NP [address] [place] [address] Nurse Practitioner Family Medicine 11/17/23 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 Start Date End Date Fred Pryor MD [address] [place] [address] PCP - General Family Medicine 11/17/23 Lacy Alberto NP [address] [place] [address] Referring Physician Family Medicine 07/04/22 Lacy Alberto NP [address] [place] [address] Nurse Practitioner Family Medicine 11/17/23 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 Start Date End Date Fred Pryor MD [address] [place] [address] PCP - General Family Medicine 11/17/23 Lacy Alberto NP [address] [place] [address] Referring Physician Family Medicine 07/04/22 Lacy Alberto NP [address] [place] [address] Nurse Practitioner Family Medicine 11/17/23 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 Start Date End Date Fred Pryor MD [address] [place] [address] PCP - General Family Medicine 11/17/23 Lacy Alberto NP [address] [place] [address] Referring Physician Family Medicine 07/04/22 Lacy Alberto NP [address] [place] [address] Nurse Practitioner Family Medicine 11/17/23 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 Start Date End Date Fred Pryor MD [address] [place] [address] PCP - General Family Medicine 11/17/23 Lacy Alberto NP [address] [place] [address] Referring Physician Family Medicine 07/04/22 Lacy Alberto NP [address] [place] [address] Nurse Practitioner Family Medicine 11/17/23 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 [employer] provides no warranty or guarantee [id number] the accuracy [phone] completeness of information in this [id number]
== END 2024-09-07 09:54 | disposition home or self-care (01) ==
LOC: MRI 09:53
PROVIDERS: PCP Nurse Practitioner; Visit Provider Anesthesiology
DX: M48.062 Spinal stenosis, lumbar region with neurogenic claudication (principal); M51.369 Other intervertebral disc degeneration, lumbar region without mention of lumbar back pain or lower extremity pain
CPT/HCPCS: 72148

== ENCOUNTER 2024-09-10 05:58 | Day surgery (SDC) | payer MEDICARE, MEDICAID, SELFPAY ==
--- OUTSIDE RECORDS SUMMARY | 2024-09-10 06:01 | XMS_ITS | CCD ---
Author Organization [facility] Care Team Providers Care Lmft Name Role Phone AICHHOLZ, GAS PLANT SPECIALIST LACY Admitting Unavailable AICHHOLZ, GAS PLANT SPECIALIST LACY Attending Unavailable AICHHOLZ, GAS PLANT SPECIALIST LACY Primary Care Unavailable DR NAHOMY BUCHANAN V Consulting Unavailable AICHHOLZ, GAS PLANT SPECIALIST LACY Consulting Unavailable AICHHOLZ, GAS PLANT SPECIALIST LACY Admitting Unavailable AICHHOLZ, GAS PLANT SPECIALIST LACY Attending Unavailable AICHHOLZ, GAS PLANT SPECIALIST LACY Primary Care Unavailable AICHHOLZ, GAS PLANT SPECIALIST LACY Consulting Unavailable AICHHOLZ, GAS PLANT SPECIALIST LACY Admitting Unavailable AICHHOLZ, GAS PLANT SPECIALIST LACY Attending Unavailable AICHHOLZ, GAS PLANT SPECIALIST LACY Primary Care Unavailable AICHHOLZ, GAS PLANT SPECIALIST LACY Primary Care Unavailable ERIC SKINNER Admitting Unavailable SUSANNE, ERIC Attending Unavailable RAFAELA ., DRAGAN AGUILERA Consulting Unavailabl e ERIC SKINNER Consulting Unavailable CASSIE BACK Consulting Unavailable Aichholz CLINICAL MEDICAL ASSISTANT, Lacy Unavailable Fred Pryor MD Primary Care Provider [phone] Aichholz CLINICAL MEDICAL ASSISTANT, Lacy Unavailable AICHHOLZ, LACY Attending Unavailable AICHHOLZ, LACY Attending Unavailable AICHHOLZ, LACY Attending Unavailable Lynsey PATEL, Edgardo Telles Attending Unavailable Fred Pryor MD Primary Care Unavail able Lynsey PATEL, Edgardo Telles Attending Unavailable Fred Pryor MD Primary Care Unavail able Allergies Allergy Classification Reported Allergen(s) Allergy Type Date of Onset Reaction(s) Facility (2 sources) Latex; Translations: [Latex] Drug allergy (disorder) 5 [facility] (16 sources) atorvastatin Drug Allergy 0 Other [facility] (16 sources) Latex Allergy to substance 7 Itching [facility] (17 sources) metFORMIN; Translations: [metFORMIN] Drug Allergy 0 Diarrhea, GI intolerance [facility] (16 sources) Metoprolol Drug Allergy 1 Dizziness [facility] (16 sources) pegademase bovine Drug Allergy 7 Unknown [facility] (16 sources) Poractant tianna Drug Allergy 7 Swelling [facility] (16 sources) WHEAT DEXTRIN Drug Allergy 7 GI intolerance [facility] Medications Current Medications Medication Drug Class(es) Dates [...] daily 6 tablet 08/28/2024 Active Continuous Glucose Hydro Plant Technician (FreeStyle [place] 2 [place]) device (16 sources) Start: 02-27-2024 End: 02-26-2025 Continuous Glucose Hydro Plant Technician (FreeStyle [place] 2 [place]) device Indications: Type 2 diabetes mellitus without [...] Dates Sig (Normalized) Sig (Original) Continuous Glucose Hydro Plant Technician (FreeStyle Helen 3 [place]) device (3 sources) Start: 05-22-2024 End: 05-28-2024 Continuous Glucose Hydro Plant Technician (FreeStyle Helen 3 [place]) device Indications: Type 2 diabetes mellitus without complication, without long-term current use of insulin (CMS/HCC) 1 each Daily 3 each 05/22/2024 05/28/2024 Discontinued (Therapy completed) Start: 05-22-2024 End: 06-21-2024 Continuous Glucose Hydro Plant Technician (FreeStyle Helen 3 [place]) device Indications: Type 2 diabetes mellitus without [...] disease (20 sources) Atherosclerotic heart disease of [place] coronary artery without angina pectoris; Translations: [Coronary [...] 07-27-2023 07-27-2023 Chronic Other aftercare (1 source) detention (current) use of aspirin; Translations: [NURSING HOME CURRENT USE OF ASPIRIN] Onset: 09-13-2022 Episodic Other aftercare (1 source) Other extermination inspector (current) drug therapy; Translations: [OTH NURSING HOME CURRENT DRUG THERAPY] Onset: 09-13-2022 Episodic Other [...] Onset: 09-13-2022 05-22-2024 Other aftercare (1 source) detention (current) use of insulin; Translations: [SENSOR TECHNICIAN CURRENT USE OF INSULIN] Onset: 12-18-2021 Episodic [...] MR Cervical spine WO contras ton 08-10-2024 [place] [address] Magnetic Resonance Report Signed Patient: ESMER BEACH MR#: [id number] : 1970 Acct:[id number] Age/Sex: 54 / F ADM Date: 08/10/24 Loc: MRI Attending Dr: Edgardo Menon M.D. Ordering Physician: Edgardo Menon M.D. Date of Service: 08/10/24 Procedure(s): MR cervical spine wo con Accession Number(s): [id number] cc: Lacy Alberto NP; Edgardo Menon M.D. [place] [address] Patient Name: ESMER BEACH MRN: [id number] date: 1970 Sex: F Assigned Patient Location: MRI Current Patient Location: MRI Accession/Order Number: [id number] Exam Date: 08/10/2024 13:10 Report Date: 08/10/2024 [...] Signed By: 08/10/24 1459 DD/ 1456 TD/TT: Drop Wire Aliner: [facility] Radiology, Radiologist, MD - 08/10/2024 [place] [address] Magnetic Resonance Report Signed Patient: ESMER BEACH MR#: [id number] : 1970 Acct:[id number] Age/Sex: 54 / F ADM Date: 08/10/24 Loc: MRI Attending Dr: Edgardo Menon M.D. Ordering Physician: Edgardo Menon M.D. Date of Service: 08/10/24 Procedure(s): MR cervical spine wo con Accession Number(s): [id number] cc: Lacy Alberto CLINICAL MEDICAL ASSISTANT; Edgardo Menon M.D. The [place] [id number] Patient Name: ESMER BEACH MRN: [facility]:[id number] date: 1970 Sex: F Assigned Patient Location: MRI Current Patient Location: MRI Accession/Order Number: [id number] Exam Date: 08/10/2024 13:10 Report Date: 08/10/2024 [...] Signed By: 08/10/24 1459 DD/ 1456 TD/TT: Drop Wire Aliner: [facility] Radiology Study observation (narrative) [facility] MR Cervical spine WO contras tOrdered By: Radiologist Radiology on 08-10-2024 [facility] Work Phone: HbA1c (Bld) [Mass fraction]o n 08-06-2024 Interpretation and review of laboratory results Abnormal [facility] - Hematology and Cell countson 08-06-2024 HbA1c (Bld) [Mass fraction] 8.80 % [facility] ALL CBC WITH AUTO DIFFon BASOPHILS ABSOLUTE AUTO 0.1 [facility] Basophils/100 WBC (Bld) 0.6 % 0.2 - 2.0 % [facility] Eosinophils/100 WBC (Bld) 1.7 % 0.9 - 7.0 % [facility] Erythrocyte distribution width (RBC) [Ratio] 13.8 % 11.0 - 15.0 % [facility] Hematocrit (Bld) [Volume fraction] 55.5 % High 36.0 - 48.0 % [facility] Hemoglobin (Bld) [Mass/Vol] 18.7 g/dL High 12.0 - 16.0 g/dL [facility] IMMATURE GRANULOCYTES ABS AUTO 0.03 [facility] Immature granulocytes/100 WBC (Bld) 0.2 % 0.0 - 0.5 % [facility] Interpretation and review of laboratory results Abnormal [facility] LYMPHOCYTES ABSOLUTE AUTO 2.9 [facility] Lymphocytes/100 WBC (Bld) 23.1 % 20.5 - 60.0 % [facility] MCH (RBC) [Entitic mass] 30.6 pg 26.7 - 34.0 pg [facility] MCHC (RBC) [Mass/Vol] 33.7 g/dL 29.9 - 35.2 g/dL [facility] MCV (RBC) [Entitic vol] 90.7 fL 81.0 - 99.0 fL [facility] MONOCYTES ABSOLUTE AUTO 0.6 [facility] Monocytes/100 WBC (Bld) 4.5 % 1.7 - 12.0 % [facility] NEUTROPHILS ABSOLUTE AUTO 8.9 High [facility] Neutrophils/100 WBC (Bld) 69.9 % 43.0 - 75.0 % [facility] Platelet mean volume (Bld) [Entitic vol] 9.2 fL Low 9.5 - 13.5 fL [facility] TBH EO # 0.2 [facility]H PLT 235 [facility] TB RBC 6.12 High [facility]H WBC 12.7 High [facility] CBC W MANUAL DIFFon 09-10-19 23 ATYPICAL LYMPH # 1.49 103/ul Normal [facility] Comment on above: Performed By: #### C EMANI #### [facility] [address] [place] [address] [address] Shakira Bahena ATYPICAL LYMPH % 8 % Normal [facility] Comment on above: Performed By: #### C EMANI #### [facility] [address] [place] [address] [address] Shakira Bahena BAND # 0.0 103/ul Normal 0.0-0.3 [facility] Comment on above: Performed By: #### C EMANI #### [facility] [address] [place] [address] [address] Shakira Bahena BAND % 0 % Normal 0-5 [facility] Comment on above: Performed By: #### C EMANI #### [facility] [address] [place] [address] [address] Shakira Bahena BASOM # 0.00 103/ul Normal 0.00-0.10 [facility] Comment on above: Performed By: #### C BCMAN #### [facility] [address] [place] [address] [address] Shakira Bahena BASOM % 0.0 % Critically low 0.2-2.0 [facility] Comment on above: Performed By: #### C BCMAN #### [facility] [address] [place] [address] [address] Shakira Bahena BLAST # Normal [facility] Comment on above: Performed By: #### C BCMAN #### [facility] [address] [place] [address] Dr. Shakira Bahena BLAST % Normal [facility] Comment on above: Performed By: #### C BCANGELA #### [facility] [address] [place] [address] Dr. Shakira Bahena CORRECTED WBC Normal 4.0-11.0 [facility] Comment on above: Performed By: #### C BCANGELA #### [facility] [address] [place] [address] Dr. Shakira Bahena EOS # 0.56 103/ul Normal 0.00-0.70 [facility] Comment on above: Performed By: #### C BCANGELA #### [facility] [address] [place] [address] Dr. Shakira Bahena EOS% 3.0 % Normal 0.9-7.0 [facility] Comment on above: Performed By: #### C BCMAN #### [facility] [address] [place] [address] [address] Shakira Bahena HCT 50.8 % Critically high 36.0-48.0 [facility] Comment on above: Performed By: #### C BCMAN #### [facility] [address] [place] [address] Dr. Shakira Bahena HGB 17.7 g/dl Critically high 12.0-16.0 [facility] Comment on above: Performed By: #### C EMANI #### [facility] [address] [place] [address] [address] Shakira Bahena LYMPHM # 1.30 103/ul Normal 1.20-3.80 [facility] Comment on above: Performed By: #### C EMANI #### [facility] [address] [place] [address] [address] Shakira Bahena LYMPHM% 7.0 % Critically low 20.5-60.0 [facility] Comment on above: Performed By: #### C EMANI #### [facility] [address] [place] [address] [address] Shakira Bahena MCH 30.7 pg Normal 26.7-34.0 [facility] Comment on above: Performed By: #### C EMANI #### [facility] [address] [place] [address] Dr. Shakira Bahena MCHC 34.8 g/dl Normal 29.9-35.2 [facility] Comment on above: Performed By: #### Elma JOAQUIN #### [facility] [address] [place] [address] Dr. Shakira Bahena MCV 88.0 fL Normal 81.0-99.0 [facility] Comment on above: Performed By: #### C EMANI #### [facility] [address] [place] [address] Dr. Shakira Bahena METAMYELOCYTE # Normal [facility] Comment on above: Performed By: #### Elma JOAQUIN #### [facility] [address] [place] [address] Dr. Shakira Bahena METAMYELOCYTE % Normal [facility] Comment on above: Performed By: #### C EMANI #### [facility] [address] [place] [address] Dr. Shakira Bahena MONOM# 0.37 103/ul Normal 0.30-0.80 [facility] Comment on above: Performed By: #### Elma JOAQUIN #### [facility] [address] [place] [address] Dr. Shakira Bahena MONOM% 2.0 % Normal 1.7-12.0 [facility] Comment on above: Performed By: #### C EMANI #### [facility] [address] [place] [address] Dr. Shakira Bahena MPV 10.1 fL Normal 9.5-13.5 [facility] Comment on above: Performed By: #### C EMANI #### [facility] [address] [place] [address] Dr. Shakira Bahena MYELOCYTE # Normal [facility] Comment on above: Performed By: #### C EMANI #### [facility] [address] [place] [address] Dr. Shakria Bahena MYELOCYTE % Normal [facility] Comment on above: Performed By: #### C EMANI #### [facility] [address] [place] [address] Dr. Shakira Bahena NRBC Normal [facility] Comment on above: Performed By: #### C EMANI #### [facility] [address] [place] [address] Dr. Shakira Bahena PLT 235 103/ul Normal 150-450 [facility] Comment on above: Performed By: #### C EMANI #### [facility] [address] [place] [address] Dr. Shakira Bahena RBC 5.77 106/ul Critically high 4.20-5.40 [facility] Comment on above: Performed By: #### C EMANI #### [facility] [address] [place] [address] Dr. Shakira Bahena RDW 14.5 % Normal 11.0-15.0 [facility] Comment on above: Performed By: #### C BCMAN #### [facility] [address] [place] [address] Dr. Shakira Bahena SEG # 14.88 103/ul Critically high 1.40-6.50 [facility] Comment on above: Performed By: #### C EMANI #### [facility] [address] [place] [address] Dr. Shakira Bahena SEG % 80.0 % Critically high 43.0-75.0 [facility] Comment on above: Performed By: #### C EMANI #### [facility] [address] [place], [place] [address] Dr. Shakira Bahena WBC 18.6 103/ul Critically high 4.0-11.0 [facility] Comment on above: Performed By: #### C EMANI #### [facility] [address] [place], [place] [address] ABD/PELVIS WO CONon [...] by: CASSIE BACK Date: 2022-09-09 21:39 Normal [facility] ER URINE PROFILEon 3 Bilirubin Ql (U) Negative Normal NEGATIVE [facility] Comment on above: Performed By: #### U MICRO, ERUR #### [facility] [address] [place] [address] [address] Shakira Bahena Clarity (U) CLEAR Normal CLEAR [facility] Comment on above: Performed By: #### U MICRO, ERUR #### [facility] [address] [place] [address] [address] Shakira Bahena Color (U) RED Abnormal YELLOW [facility] Comment on above: Performed By: #### U MICRO, ERUR #### [facility] [address] [place] [address] [address] Shakira FORDE A micrscopic examination will be performed if indicated. Normal [facility] Comment on above: Performed By: #### U MICRO, ERUR #### [facility] [address] [place] [address] Dr. Shakira Bahena Glucose Ql (U) Negative Normal NEGATIVE [facility] Comment on above: Performed By: #### U MICRO, ERUR #### [facility] [address] [place] [address] [address] Shakira Bahena Hemoglobin Ql (U) LARGE Abnormal NEGATIVE [facility] Comment on above: Performed By: #### U MICRO, ERUR #### [facility] [address] [place] [address] [address] Shakira Bahena Ketones Ql (U) Negative Normal NEGATIVE [facility] Comment on above: Performed By: #### U MICRO, ERUR #### [facility] [address] [place] [address] [address] Shakira Bahena LEUKOCYTES TRACE Abnormal NEGATIVE [facility] Comment on above: Performed By: #### U MICRO, ERUR #### [facility] [address] [place] [address] [address] Shakira Bahena Nitrite Ql (U) Negative Normal NEGATIVE [facility] Comment on above: Performed By: #### U MICRO, ERUR #### [facility] [address] [place] [address] [address] Shakira Bahena pH (U) 5.5 [pH] Normal 5-9 [facility] Comment on above: Performed By: #### U MICRO, ERUR #### [facility] [address] [place] [address] Dr. Shakira Bahena Protein (U) [Mass/Vol] 100 mg/dL Abnormal NEGATIVE/ TRACE [facility] Comment on above: Performed By: #### U MICRO, ERUR #### [facility] [address] [place] [address] Dr. Shakira Bahena SPEC GRAVITY 1.010 Normal 1.005-<=1.025 [facility] Comment on above: Performed By: #### U MICRO, ERUR #### [facility] [address] [place] [address] Dr. Shakira Bahena UR MICRO IND INDICATED Normal [facility] Comment on above: Performed By: #### U MICRO, ERUR #### [facility] [address] [place] [address] Dr. Shakira Bahena Urobilinogen Qn (U) 1.0 {Navin'U}/dL Normal 0.2 - 1. 0 [facility] Comment on above: Performed By: #### U MICRO, ERUR #### [facility] [address] [place] [address] Dr. Shakira Bahena LACTATE/LACTIC ACIDon 2022 Lactate [Moles/Vol] 0.7 mmol/L Normal 0.4-2.0 [facility] Comment on above: Performed By: #### L ACT #### [facility] [address] [place] [address] Dr. Shakira Bahena PROF 14(COMP METB)on 023 Albumin [Mass/Vol] 3.5 g/dL Normal 3.4-5.0 [facility] Comment on above: Performed By: #### P T, PTT #### [facility] [address] [place] [address] Dr. Shakira Bahena Albumin/Globulin [Mass ratio] 1.1 {ratio} Normal [facility] Comment on above: Performed By: #### P T, PTT #### [facility] [address] [place] [address] [address] Shakira Bahena ALP [Catalytic activity/Vol] 104 U/L Normal 46-116 [facility] Comment on above: Performed By: #### P T, PTT #### [facility] [address] [place] [address] [address] Shakira Bahena ALT [Catalytic activity/Vol] 20 U/L Normal 14-59 [facility] Comment on above: Performed By: #### P T, PTT #### [facility] [address] [place] [address] [address] Shakira Bahena Anion gap [Moles/Vol] 9.9 mmol/L Normal [facility] Comment on above: Performed By: #### P T, PTT #### [facility] [address] [place] [address] Dr. Shakira Bahena AST [Catalytic activity/Vol] 24 U/L Normal 15-37 [facility] Comment on above: Performed By: #### P T, PTT #### [facility] [address] [place] [address] [address] Shakira Bahena Bilirubin [Mass/Vol] 0.4 mg/dL Normal 0.2-1.0 [facility] Comment on above: Performed By: #### P T, PTT #### [facility] [address] [place] [address] [address] Shakira Bahena Calcium [Mass/Vol] 8.6 mg/dL Normal 8.5-10.1 [facility] Comment on above: Performed By: #### P T, PTT #### [facility] [address] [place] [address] [address] Shakira Bahena Chloride [Moles/Vol] 106 mmol/L Normal 98-107 [facility] Comment on above: Performed By: #### P T, PTT #### [facility] [address] [place] [address] [address] Shakira Bahena CO2 [Moles/Vol] 26.3 mmol/L Normal 21.0-32.0 [facility] Comment on above: Performed By: #### P T, PTT #### [facility] [address] [place] [address] Dr. Shakira Bahena Creatinine [Mass/Vol] 0.60 mg/dL Normal 0.55-1.02 [facility] Comment on above: Performed By: #### P T, PTT #### [facility] [address] [place] [address] [address] Shakira Bahena EGFR-AF ROMANIAN >60 Normal >=60 [facility] Comment on above: Performed By: #### P T, PTT #### [facility] [address] [place] [address] Dr. Shakira Bahena EGFR-NON AF ROMANIAN >60 Normal >=60 [facility] Comment on above: Performed By: #### P T, PTT #### [facility] [address] [place] [address] Dr. Shakira Bahena Globulin (S) [Mass/Vol] 3.2 g/dL Normal [facility] Comment on above: Performed By: #### P T, PTT #### [facility] [address] [place] [address] Dr. Shakira Bahena Glucose [Mass/Vol] 105 mg/dL Normal 74-106 [facility] Comment on above: Performed By: #### P T, PTT #### [facility] [address] [place] [address] Dr. Shakira Bahena Potassium [Moles/Vol] 4.2 mmol/L Normal 3.5-5.1 [facility] Comment on above: Performed By: #### P T, PTT #### [facility] [address] [place] [address] Dr. Shakira Bahena Protein [Mass/Vol] 6.7 g/dL Normal 6.4-8.2 [facility] Comment on above: Performed By: #### P T, PTT #### [facility] [address] [place] [address] Dr. Shakira Bahena Sodium [Moles/Vol] 138 mmol/L Normal 136-145 [facility] Comment on above: Performed By: #### P T, PTT #### [facility] [address] [place] [address] Dr. Shakira Bahena Urea nitrogen [Mass/Vol] 11.0 mg/dL Normal 7.0-18.0 [facility] Comment on above: Performed By: #### P T, PTT #### [facility] [address] [place] [address] Dr. Shakira Bahena Urea nitrogen/Creatinine [Mass ratio] 18.3 mg/mg Normal [facility] Comment on above: Performed By: #### P T, PTT #### [facility] [address] [place] [address] Dr. Shakira Bahena PROTIMEon 09-09-2022 INR Coag (PPP) [Relative time] 0.93 {INR} Normal [facility] Comment on above: Performed By: #### P T, PTT #### [facility] [address] [place] [address] Dr. Shakira Bahena INR GUIDELINES SEE BELOW Normal [facility] Comment on above: Result Comment: SHANA RED INR: 2.0 - 3.0 CONDITIONS NOT LISTED BELOW 2.5 - 3.5 FOR PROSTHETIC HEART VALVE REPLACEMENT 2.5 - 3.5 RECURRENT THROMBOSIS Performed By: #### P T, PTT #### [facility] [address] [place] [address] Dr. Shakira Bahena PT Coag (PPP) [Time] 9.9 s Normal 9.0-11.6 [facility] Comment on above: Performed By: #### P T, PTT #### [facility] [address] [place] [address] Dr. Shakira Bahena PTTon 09-09-2022 aPTT Coag (Bld) [Time] 28.0 s Normal 22.3-36.2 [facility] Comment on above: Performed By: #### P T, PTT #### [facility] [address] [place] [address] Dr. Shakira Bahena URINE MICROSCOPIC ONLYon BACTERIA NONE SEEN Normal NONE SEEN [facility] Comment on above: Performed By: #### U MICRO, ERUR #### [facility] [address] [place] [address] Dr. Shakira Bahena Bacteria identified Cx Nom (U) NOT INDICATED Normal [facility] Comment on above: Performed By: #### U MICRO, ERUR #### [facility] [address] [place] [address] [address] Shakira Bahena CAST NONE SEEN Normal NONE SEEN [facility] Comment on above: Performed By: #### U MICRO, ERUR #### [facility] [address] [place] [address] [address] Shakira Bahena Crystals LM Nom (Urine sed) NONE SEEN Normal NONE SEEN [facility] Comment on above: Performed By: #### U MICRO, ERUR #### [facility] [address] [address] [address] Shakira Bahena Epithelial cells LM Ql (Urine sed) FEW Abnormal NONE SEEN /RARE [facility] Comment on above: Performed By: #### U MICRO, ERUR #### [facility] [address] [place] [address] Dr. Shakira Bahena MUCOUS NONE SEEN Normal NONE SEEN [facility] Comment on above: Performed By: #### U MICRO, ERUR #### [facility] [address] [place] [address] Dr. Shakira Bahena RBC (U) [#/Vol] /uL Abnormal 0-2 [facility] Comment on above: Performed By: #### U MICRO, ERUR #### [facility] [address] [place] [address] Dr. Shakira Bahena WBC 2-5 Abnormal NONE SEEN [facility] Comment on above: Performed By: #### U MICRO, ERUR #### [facility] [address] [place] [address] Dr. Shakira Bahena MG MAMM SCREEN 3D ERLINDA CADon 08-31-2022 MG MAMM SCREEN 3D ERLINDA CAD Patient: ESMER [place] Exam Date: 08/31/2022 : 1970 Gender:F Ordering : UVALDO ALBERTO CNP Admission #: [id number] Family : Order #: [id number] CLICK HERE TO VIEW EXAM RADIOLOGY REPORT [...] lung cancer at age 64. LOCATION: [facility] BREAST COMPOSITION: Scattered areas fibroglandular density. FINDINGS: [...] MD on 08/31/2022 at 14:10 Normal [facility] CBC AUTO DIFFon 12-16-2021 BASO # 0.1 103/ul Normal 0.0-0.1 [facility] Comment on above: Performed By: #### C BC #### [facility] [address] [address] [address] Shakira Bahena Basophils/100 WBC (Bld) 0.6 % Normal 0.2-2.0 [facility] Comment on above: Performed By: #### C BC #### [facility] [address] [place] [address] Dr. Shakira Bahena EO # 0.3 103/ul Normal 0.0-0.7 [facility] Comment on above: Performed By: #### C BC #### [facility] [address] [address] [address] Shakira Bahena Eosinophils/100 WBC (Bld) 1.7 % Normal 0.9-7.0 [facility] Comment on above: Performed By: #### C BC #### [facility] [address] [address] [address] Shakira Baehna Erythrocyte distribution width (RBC) [Ratio] 15.6 % Critically high 11.0-15.0 [facility] Comment on above: Performed By: #### C BC #### [facility] [address] [address] [address] Shakira Bahena Hematocrit (Bld) [Volume fraction] 50.7 % Critically high 36.0-48.0 [facility] Comment on above: Performed By: #### C BC #### [facility] [address] [place] [address] Dr. Shakira Bahena Hemoglobin (Bld) [Mass/Vol] 16.0 g/dL Normal 12.0-16.0 [facility] Comment on above: Performed By: #### C BC #### [facility] [address] [place] [address] Dr. Shakira Bahena IG # 0.06 10e3/ul Critically high 0.00-0.03 [facility] Comment on above: Performed By: #### C BC #### [facility] [address] [place] [address] Dr. Shakira Bahena IG % 0.4 % Normal 0.0-0.5 [facility] Comment on above: Performed By: #### C BC #### [facility] [address] [place] [address] Dr. Shakira Bahena LYMPH # 3.7 103/ul Normal 1.2-3.8 [facility] Comment on above: Performed By: #### C BC #### [facility] [address] [place] [address] Dr. Shakira Bahena Lymphocytes/100 WBC (Bld) 23.9 % Normal 20.5-60.0 [facility] Comment on above: Performed By: #### C BC #### [facility] [address] [place] [address] Dr. Shakira Bahena MANUAL DIFF REQ NO Normal [facility] Comment on above: Performed By: #### C BC #### [facility] [address] [place] [address] Dr. Shakira Bahena MCH (RBC) [Entitic mass] 28.7 pg Normal 26.7-34.0 [facility] Comment on above: Performed By: #### C BC #### [facility] [address] [address] [address] Shakira Bahena MCHC (RBC) [Mass/Vol] 31.6 g/dL Normal 29.9-35.2 [facility] Comment on above: Performed By: #### C BC #### [facility] [address] [address] [address] Shakira Bahena MCV (RBC) [Entitic vol] 90.9 fL Normal 81.0-99.0 [facility] Comment on above: Performed By: #### C BC #### [facility] [address] [address] [address] Shakira Bahena MONO # 0.7 103/ul Normal 0.3-0.8 [facility] Comment on above: Performed By: #### C BC #### [facility] [address] [place] [address] Dr. Shakira Bahena Monocytes/100 WBC (Bld) 4.5 % Normal 1.7-12.0 [facility] Comment on above: Performed By: #### C BC #### [facility] [address] [place] [address] Dr. Shakira Bahena NEUT # 10.8 103/ul Critically high 1.4-6.5 [facility] Comment on above: Performed By: #### C BC #### [facility] [address] [place] [address] Dr. Shakira Bahena Neutrophils/100 WBC (Bld) 68.9 % Normal 43.0-75.0 [facility] Comment on above: Performed By: #### C BC #### [facility] [address] [place] [address] Dr. Shakira Bahena Platelet mean volume (Bld) [Entitic vol] 10.0 fL Normal 9.5-13.5 [facility] Comment on above: Performed By: #### C BC #### [facility] [address] [place] [address] Dr. Shakira Bahena PLT 309 103/ul Normal 150-450 [facility] Comment on above: Performed By: #### C BC #### [facility] [address] [place] [address] Dr. Shakira Bahena RBC 5.58 106/ul Critically high 4.20-5.40 [facility] Comment on above: Performed By: #### C BC #### [facility] [address] [place] [address] Dr. Shakira Bahena WBC 15.6 103/ul Critically high 4.0-11.0 [facility] Comment on above: Performed By: #### C BC #### [facility] [address] [place] [address] Dr. Shakira Bahena GLYCOHEMOGLOBIN A1Con 2021 ADA RECOMMENDATION SEE BELOW Normal [facility] Comment on above: Result Comment: ADA RECOMMENDED LIMIT 4.0 - 6.0 ADA THERAPEUTIC TARGET < 7.0 ACTION SUGGESTED > 7.0 Performed By: #### A 1C #### [facility] [address] [place] [address] Dr. Shakira Bahena Glucose [Mass/Vol] 120 mg/dL Normal [facility] Comment on above: Performed By: #### A 1C #### [facility] [address] [place] [address] Dr. Shakira Bahena HbA1c (Bld) [Mass fraction] 5.8 % Normal 4.5-6.2 [facility] Comment on above: Performed By: #### A 1C #### [facility] [address] [place] [address] Dr. Shakira Bahena LIPID PROFILEon 12-16-2021 CHOL-HDL RATIO NORM SEE BELOW Normal [facility] Comment on above: Result Comment: 3.3 - 4.4 LOW RISK 4.4 - 7.1 AVERAGE RISK 7.1 - 11.0 MODERATE RISK >11.0 HIGH RISK Performed By: #### P T, PTT #### [facility] [address] [place] [address] Dr. Shakira Bahena Cholesterol [Mass/Vol] 149 mg/dL Normal <=200 [facility] Comment on above: Performed By: #### P T, PTT #### [facility] [address] [place] [address] Dr. Shakira Bahena Cholesterol in HDL [Mass/Vol] 28 mg/dL Critically low 40-60 [facility] Comment on above: Performed By: #### P T, PTT #### [facility] [address] [address] [address] Shakira Bahena Cholesterol in LDL [Mass/Vol] 80.6 mg/dL Normal [facility] Comment on above: Performed By: #### P T, PTT #### [facility] [address] [address] [address] Shakira Bahena Cholesterol.total/Ch olesterol in HDL [Mass ratio] 5.3 {ratio} Normal [facility] Comment on above: Performed By: #### P T, PTT #### [facility] [address] [address] [address] Shakira Bahena HDL NORMAL > or = 60 mg/dl - LO W CARDIOVASCULAR RISK <40 mg/dl - HIGH CARDIOVASCULAR RISK Normal [facility] Comment on above: Performed By: #### P T, PTT #### [facility] [address] [place] [address] Dr. Shakira Bahena LDL CALC NORMAL SEE BELOW Normal [facility] Comment on above: Result Comment: <100 mg/dl OPTIMAL 100 - 129 mg/dl NEAR OR ABOVE OPTIMAL 130 - 159 mg/dl BORDERLINE HIGH 160 - 189 mg/dl HIGH >190 mg/dl VERY HIGH Performed By: #### P T, PTT #### [facility] [address] [address] [address] Shakira Bahena Triglyceride [Mass/Vol] 202 mg/dL Critically high <=150 [facility] Comment on above: Performed By: #### P T, PTT #### [facility] [address] [address] [address] Shakira Bahena VLDL CALC 40.4 mg/dL Normal [facility] Comment on above: Performed By: #### P T, PTT #### [facility] [address] [address] [address] Shakira Bahena MICROALBUMIN, RAND URon 06-1 mALB <1.3 Normal <=30.0 [facility] Comment on above: Performed By: #### P T, PTT #### [facility] [address] [address] [address] Shakira Bahena PROF 14(COMP METB)on 022 Albumin [Mass/Vol] 3.5 g/dL Normal 3.4-5.0 [facility] Comment on above: Performed By: #### P T, PTT #### [facility] [address] [place] [address] Dr. Shakira Bahena Albumin/Globulin [Mass ratio] 1.0 {ratio} Normal [facility] Comment on above: Performed By: #### P T, PTT #### [facility] [address] [place] [address] Dr. Shakira Bahena ALP [Catalytic activity/Vol] 103 U/L Normal 46-116 [facility] Comment on above: Performed By: #### P T, PTT #### [facility] [address] [place] [address] Dr. Shakira Bahena ALT [Catalytic activity/Vol] 19 U/L Normal 14-59 [facility] Comment on above: Performed By: #### P T, PTT #### [facility] [address] [place] [address] Dr. Shakira Bahena Anion gap [Moles/Vol] 14.8 mmol/L Normal [facility] Comment on above: Performed By: #### P T, PTT #### [facility] [address] [place] [address] Dr. Shakira Bahena AST [Catalytic activity/Vol] 10 U/L Critically low 15-37 [facility] Comment on above: Performed By: #### P T, PTT #### [facility] [address] [place] [address] Dr. Shakira Bahena Bilirubin [Mass/Vol] 0.3 mg/dL Normal 0.2-1.0 [facility] Comment on above: Performed By: #### P T, PTT #### [facility] [address] [place] [address] Dr. Shakira Bahena Calcium [Mass/Vol] 8.6 mg/dL Normal 8.5-10.1 [facility] Comment on above: Performed By: #### P T, PTT #### [facility] [address] [address] [address] Shakira Bahena Chloride [Moles/Vol] 107 mmol/L Normal 98-107 [facility] Comment on above: Performed By: #### P T, PTT #### [facility] [address] [address] [address] Shakira Bahena CO2 [Moles/Vol] 23.1 mmol/L Normal 21.0-32.0 [facility] Comment on above: Performed By: #### P T, PTT #### [facility] [address] [address] [address] Shakira Bahena Creatinine [Mass/Vol] 0.79 mg/dL Normal 0.55-1.02 [facility] Comment on above: Performed By: #### P T, PTT #### [facility] [address] [place] [address] Dr. Shakira Bahena EGFR-AF ROMANIAN >60 Normal >=60 [facility] Comment on above: Performed By: #### P T, PTT #### [facility] [address] [address] [address] Shakira Bahena EGFR-NON AF ROMANIAN >60 Normal >=60 [facility] Comment on above: Performed By: #### P T, PTT #### [facility] [address] [place] [address] Dr. Shakira Bahena Globulin (S) [Mass/Vol] 3.4 g/dL Normal [facility] Comment on above: Performed By: #### P T, PTT #### [facility] [address] [place] [address] Dr. Shakira Bahena Glucose [Mass/Vol] 157 mg/dL Critically high 74-106 [facility] Comment on above: Performed By: #### P T, PTT #### [facility] [address] [place] [address] Dr. Shakira Bahena Potassium [Moles/Vol] 3.9 mmol/L Normal 3.5-5.1 [facility] Comment on above: Performed By: #### P T, PTT #### [facility] [address] [address] [address] Shakira Bahena Protein [Mass/Vol] 6.9 g/dL Normal 6.4-8.2 [facility] Comment on above: Performed By: #### P T, PTT #### [facility] [address] [place] [address] Dr. Shakira Bahena Sodium [Moles/Vol] 141 mmol/L Normal 136-145 [facility] Comment on above: Performed By: #### P T, PTT #### [facility] [address] [place] [address] Dr. Shakira Bahena Urea nitrogen [Mass/Vol] 13.0 mg/dL Normal 7.0-18.0 [facility] Comment on above: Performed By: #### P T, PTT #### [facility] [address] [place] [address] Dr. Shakira Bahena Urea nitrogen/Creatinine [Mass ratio] 16.5 mg/mg Normal [facility] Comment on above: Performed By: #### P T, PTT #### [facility] [address] [place] [address] Dr. Shakira Bahena UA RANDOM W/MICROSCOPICon BACTERIA NONE SEEN Normal NONE SEEN [facility] Comment on above: Performed By: #### P T, PTT #### [facility] [address] [place] [address] Dr. Shakira Bahena Bilirubin Ql (U) Negative Normal NEGATIVE [facility] Comment on above: Performed By: #### P T, PTT #### [facility] [address] [place] [address] Dr. Shakira Bahena CAST NONE SEEN Normal NONE SEEN [facility] Comment on above: Performed By: #### P T, PTT #### [facility] [address] [place] [address] Dr. Shakira Bahena Clarity (U) CLEAR Normal CLEAR [facility] Comment on above: Performed By: #### P T, PTT #### [facility] [address] [place] [address] Dr. Shakira Bahena Color (U) LT. YELLOW Normal YELLOW [facility] Comment on above: Performed By: #### P T, PTT #### [facility] [address] [place] [address] Dr. Shakira Bahena Crystals LM Nom (Urine sed) NONE SEEN Normal NONE SEEN [facility] Comment on above: Performed By: #### P T, PTT #### [facility] [address] [place] [address] Dr. Shakira Bahena Epithelial cells LM Ql (Urine sed) RARE Normal NONE SEEN /RARE [facility] Comment on above: Performed By: #### P T, PTT #### [facility] [address] [place] [address] Dr. Shakira Bahena Glucose Ql (U) 100 mg/dl Abnormal NEGATIVE [facility] Comment on above: Performed By: #### P T, PTT #### [facility] [address] [place] [address] Dr. Shakira Bahena Hemoglobin Ql (U) Negative Normal NEGATIVE [facility] Comment on above: Performed By: #### P T, PTT #### [facility] [address] [place] [address] Dr. Shakira Bahena Ketones Ql (U) Negative Normal NEGATIVE [facility] Comment on above: Performed By: #### P T, PTT #### [facility] [address] [place] [address] Dr. Shakira Bahena LEUKOCYTES Negative Normal NEGATIVE [facility] Comment on above: Performed By: #### P T, PTT #### [facility] [address] [place] [address] Dr. Shakira Bahena MUCOUS NONE SEEN Normal NONE SEEN [facility] Comment on above: Performed By: #### P T, PTT #### [facility] [address] [place] [address] Dr. Shakira Bahena Nitrite Ql (U) Negative Normal NEGATIVE [facility] Comment on above: Performed By: #### P T, PTT #### [facility] [address] [place] [address] Dr. Shakira Bahena pH (U) 6.0 [pH] Normal 5-9 [facility] Comment on above: Performed By: #### P T, PTT #### [facility] [address] [place] [address] Dr. Shakira Bahena RBC 0-2 Normal 0-2 [facility] Comment on above: Performed By: #### P T, PTT #### [facility] [address] [place] [address] Dr. Shakira Bahena SPEC GRAVITY 1.010 Normal 1.005-<=1.025 [facility] Comment on above: Performed By: #### P T, PTT #### [facility] [address] [place] [address] Dr. Shakira Bahena UA PROTEIN Negative Normal NEGATIVE/ TRACE [facility] Comment on above: Performed By: #### P T, PTT #### [facility] [address] [place] [address] Dr. Shakira Bahena Urobilinogen Qn (U) 0.2 {Navin'U}/dL Normal 0.2 - 1. 0 [facility] Comment on above: Performed By: #### P T, PTT #### [facility] [address] [place] [address] Dr. Shakira Bahena WBC NONE SEEN Normal NONE SEEN [facility] Comment on above: Performed By: #### P T, PTT #### [facility] [address] [place] [address] Dr. Shakira Bahena LUMBAR SPINE 4 OR 5 [facility] LUMBAR SPINE 4 OR 5 [facility] Department of Radiology [address] [place] [id number] ======== Patient Name: ESMER BEACH : 1970 Sex: F Age: Race: White Pt. Location: 84 Patient Status: D Ordered Date: 01/18/2020 1:45:00 PM Completed Date: 01/18/2020 02:04 PM Requesting Provider: RICARDO JOSEPH Attending Provider: RICARDO JOSEPH Report Copy To: Signs & Symptoms: M48.061 Spinal stenosis, lumbar region without neurogenic ignacio I10 History: [place] Comments: Views (X-RAY, LUMBAR SPINE): AP, Lateral, [...] subluxation Electronically signed: Alma Lopez. Transcribed by: [email or web address], User Resident: Electronically Signed by: HUI MEAD @ 01/30/2020 11:27 AM Normal [facility] Comment on above: Order Comment: Views (X-RAY, LUMBAR SPINE): AP, Lateral, L5-S1 Spot, Flexion, Extension , Weight Bearing?: Y Remote CBCDIF (for [facility] use o nly)on 01-03-2019 Abs Baso 0.05 k/uL Normal 0.00-0.10 [facility] Abs Russell 0.90 k/uL High 0.00-0.86 [facility] Abs Neut 12.73 k/uL High 1.45-7.50 [facility] Basophils/100 WBC (Bld) 0.3 % Normal [facility] Eosinophils (Bld) [#/Vol] 0.27 10*3/uL Normal 0.00-0.45 [facility] Eosinophils/100 WBC (Bld) 1.5 % Normal [facility] Erythrocyte distribution width (RBC) [Ratio] 15.0 % Normal 11.5-15.0 [facility] Hematocrit (Bld) [Volume fraction] 46.9 % High 36.0-46.0 [facility] Hemoglobin (Bld) [Mass/Vol] 16.1 g/dL High 11.5-15.5 [facility] Lymphocytes (Bld) [#/Vol] 3.51 10*3/uL Normal 1.00-4.00 [facility] Lymphocytes/100 WBC (Bld) 20.1 % Normal [facility] MCH (RBC) [Entitic mass] 30.0 pG Normal 26.0-34.0 [facility] MCHC (RBC) [Mass/Vol] 34.3 g/dL Normal 30.5-36.0 [facility] MCV (RBC) [Entitic vol] 87.3 fL Normal 80.0-100.0 [facility] Monocytes/100 WBC (Bld) 5.2 % Normal [facility] Neutrophils/100 WBC (Bld) 72.9 % Normal [facility] Platelet mean volume (Bld) [Entitic vol] 9.4 fL Normal 9.0-12.7 [facility] Platelets (Bld) [#/Vol] 308 10*3/uL Normal 150-400 [facility] RBC (Bld) [#/Vol] 5.37 10*6/uL High 3.90-5.20 [facility] WBC (Bld) [#/Vol] 17.46 10*3/uL High 3.70-11.00 [facility] CNOVSPon 07-13-2018 CNOVSP Visit (SP) Office ([facility]) ESMER BEACH ([id number]) 1970 F Date Time Provider Department 07/13/18 [...] Vanessa Espinosa MD Referring Provider: LACY ALBERTO ([facility]) [[id number]] Allergies As of Date: 07/13/2018 Noted Allergy [...] (FOR REMOTE [facility] USE) [SQRCBCDF] Order #: [id number] STANDING Follow-up and Disposition History Recorded Prescriptions [...] [D72.829] INVALID FOR* Coronary artery disease involving seneca heart *INVALID FOR* Diabetes mellitus (HCC) [E11.9] INVALID FOR* Psychiatric disorder [F99] INVALID FOR* Encounter Status:Closed by VANESSA ESPINOSA MD on 07/13/18 [facility] PROGRESSon 07-13-2018 PROGRESS HNO ID: [id number] Author: Vanessa Espinosa Service: (none) Author Type: [...] year - CBC + DIFF (FOR REMOTE [facility] USE) Vanessa Espinosa MD Normal [facility] Remote CBCDIF (for [facility] use o nly)on 07-13-2018 Abs Baso 0.04 k/uL Normal 0.00-0.10 [facility] Abs Russell 0.82 k/uL Normal 0.00-0.86 [facility] Abs Neut 14.68 k/uL High 1.45-7.50 [facility] Basophils/100 WBC (Bld) 0.2 % Normal [facility] Eosinophils (Bld) [#/Vol] 0.15 10*3/uL Normal 0.00-0.45 [facility] Eosinophils/100 WBC (Bld) 0.8 % Normal [facility] Erythrocyte distribution width (RBC) [Ratio] 14.5 % Normal 11.5-15.0 [facility] Hematocrit (Bld) [Volume fraction] 47.2 % High 36.0-46.0 [facility] Hemoglobin (Bld) [Mass/Vol] 15.8 g/dL High 11.5-15.5 [facility] Lymphocytes (Bld) [#/Vol] 3.48 10*3/uL Normal 1.00-4.00 [facility] Lymphocytes/100 WBC (Bld) 18.2 % Normal [facility] MCH (RBC) [Entitic mass] 29.4 pG Normal 26.0-34.0 [facility] MCHC (RBC) [Mass/Vol] 33.5 g/dL Normal 30.5-36.0 [facility] MCV (RBC) [Entitic vol] 87.9 fL Normal 80.0-100.0 [facility] Monocytes/100 WBC (Bld) 4.3 % Normal [facility] Neutrophils/100 WBC (Bld) 76.5 % Normal [facility] Platelet mean volume (Bld) [Entitic vol] 9.3 fL Normal 9.0-12.7 [facility] Platelets (Bld) [#/Vol] 274 10*3/uL Normal 150-400 [facility] RBC (Bld) [#/Vol] 5.37 10*6/uL High 3.90-5.20 [facility] WBC (Bld) [#/Vol] 19.17 10*3/uL High 3.70-11.00 [facility] BCR-ABL Qualitativeon 2017 BCR-ABL Qualitative (NOTE) Normal [facility] Comment on above: Result Comment: Plea se refer to [facility] Surgical Pathology report, Performed By: #### Elma ALArlene, BCRQL #### [facility] [employer] [address] [id number] Basic Metabolic Panlon 06-15 Anion gap [Moles/Vol] 12 mmol/L Normal 9-18 [facility] Comment on above: Performed By: #### Rosemarie AKMaria Victoria, YONI, HFP, WSR #### [facility] [employer] [address] [place], [place] [address] Calcium [Mass/Vol] 9.4 mg/dL Normal 8.5-10.2 [facility] Comment on above: Performed By: #### Rosemarie AKMaria Victoria, YONI, HFP, WSR #### [facility] [employer] [address] [place], [place] [address] Chloride [Moles/Vol] 108 mmol/L High 97-105 [facility] Comment on above: Performed By: #### YONI RUIZ, HFP, WSR #### [facility] [address] [place] [id number] CO2 [Moles/Vol] 21 mmol/L Low 22-30 [facility] Comment on above: Performed By: #### YONI RUIZ, HFP, WSR #### [facility] [address] [place] [address] Creatinine [Mass/Vol] 0.65 mg/dL Normal 0.58-0.96 [facility] Comment on above: Performed By: #### Rosemarie JOHNSON, YONI, HFP, WSR #### [facility] [address] [place] [address] eGFR- Amer. >[address] [facility] Comment on above: Performed By: #### YONI RUIZ, MEDARDO, WSR #### [facility] [address] [address] GFR/1.73 sq M predicted among non-blacks MDRD (S/P/Bld) [Vol rate/Area] mL/min/{1.73_m2} Normal [facility] Comment on above: Result Comment: [...] By: #### YONI RUIZ, HFP, WSR #### [facility] [address] [place] [phone] Glucose [Mass/Vol] 187 mg/dL High 74-99 [facility] Comment on above: Result Comment: The [place] [employer] (ADA) provides guidance for cutoff [...] Standards of Medical Care in Diabetes 2016, [place] Diabetes Association. Diabetes Care. 2016.39(Suppl 1). Performed By: #### YONI RUIZ, MEDARDO, WSR #### [facility] [address] [place], [place] [address] Potassium [Moles/Vol] 4.7 mmol/L Normal 3.7-5.1 [facility] Comment on above: Performed By: #### YONI RUIZ, MEDARDO, WSR #### [place] [address] [place] [address] Sodium [Moles/Vol] 141 mmol/L Normal 136-144 [facility] Comment on above: Performed By: #### Rosemarie AKYONI Irene, HFP, WSR #### [facility] [address] [place], [place] [address] Urea nitrogen [Mass/Vol] 14 mg/dL Normal 7-21 [facility] Comment on above: Performed By: #### Rosemarie JOHNSON, YONI, HFP, WSR #### [facility] [address] [place], [place] [address] CALR Exon 9 Mutationon 06-15 CALR Result/Interp Duplicate request Normal [facility] Comment on above: Result Comment: Acco unt Credited SEE RESULT FOR MPNP. DMCKNIGHT 06 16 2018 Performed By: #### C ALR, BCRQL #### [facility] [address] [place] [id number] CALR Reviewed by Duplicate request Normal [facility] Comment on above: Result Comment: Acco unt Credited SEE RESULT FOR MPNP. [id number] Performed By: #### C ALR, BCRQL #### [facility] [employer] [address] [place], [place] [address] CALR Specimen Type Duplicate request Normal [facility] Comment on above: Result Comment: Acco unt Credited SEE RESULT FOR MPNP. [id number] Performed By: #### C ALR, BCRQL #### [facility] [employer] [address] [place], [place] [address] CNOVSPon 06-15-2018 CNOVSP Visit (SP) Office ([place]) [place] ([id number]) 1970 F Date Time Provider Department 06/15/18 [...] ABS GRAN CT + CBC (FOR REMOTE [facility] USE) - BASIC METABOLIC PNL - HEPATIC FUNCTION PNL - SED RATE WESTERGREN - BCR-ABL QUALITATIVE MULTIPLEX RT-PCR - JAK2 V617F MUTATION BLOOD - MPL MUTATION ANALYSIS BLOOD - CALR EXON 9 MUTATION ANALYSIS BLOOD 2. 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, unspecified vessel or lesion type (HCC) [I25.118] Other specified diabetes mellitus without complication, with long-term current use of insulin (HCC) [E13.9, Z79.4] Psychiatric disorder [F99] Order(s):ABS GRAN CT + CBC (FOR REMOTE [facility] USE) [SQRAGCBC] Order #: [id number] FUTURE BASIC METABOLIC PNL [SQBMP] Order #: [id number] FUTURE HEPATIC FUNCTION PNL [SQHFP] Order #: [id number] FUTURE SED RATE WESTERGREN [SQWSR] Order #: [id number] FUTURE BCR-ABL QUALITATIVE MULTIPLEX RT-PCR [SQBCRQL] Order #: [id number] FUTURE JAK2 V617F MUTATION BLOOD [SQJAK2] Order #: [id number] FUTURE MPL MUTATION ANALYSIS BLOOD [SQMPL] Order #: [id number] FUTURE CALR EXON 9 MUTATION ANALYSIS BLOOD [SQCALR] Order #: [id number] FUTURE Disposition: Return in about 4 weeks [...] [D72.829] INVALID FOR* Coronary artery disease involving seneca heart *INVALID FOR* Diabetes mellitus (HCC) [E11.9] INVALID FOR* Psychiatric disorder [F99] INVALID FOR* Encounter Status:Closed by VANESSA ESPINOSA MD on 06/15/18 Normal [facility] Hepatic Functn Panelon 06-15 Albumin [Mass/Vol] 4.2 g/dL Normal 3.9-4.9 [facility] Comment on above: Performed By: #### J AK2, YONI, HFP, WSR #### [facility] [employer] [address] [place], [place] [address] ALP [Catalytic activity/Vol] 99 U/L Normal 34-123 [facility] Comment on above: Performed By: #### Rosemarie AK2, YONI, HFP, WSR #### [facility] [employer] [address] [place], [place] [address] ALT [Catalytic activity/Vol] 18 U/L Normal 7-38 [facility] Comment on above: Performed By: #### Rosemarie AK2, BMP, HFP, WSR #### [facility] [address] [place] [phone] AST [Catalytic activity/Vol] 19 U/L Normal 13-35 [facility] Comment on above: Performed By: #### Rosemarie AK2, BMP, HFP, WSR #### [facility] [address] [place] [phone] Bilirubin [Mass/Vol] mg/dL Low 0.2-1.3 [facility] Comment on above: Performed By: #### Rosemarie AK2, BMP, HFP, WSR #### [place] [address] [place] [phone] Bilirubin,Conjugated <0.2 Normal <0.2 [facility] Comment on above: Performed By: #### Rosemarie AK2, BMP, HFP, WSR #### [place] [address] [place] [phone] Protein [Mass/Vol] 7.1 g/dL Normal 6.3-8.0 [facility] Comment on above: Performed By: #### Rosemarie AK2, BMP, HFP, WSR #### [facility] [address] [place] [phone] JAK2 V617F Mutationon 2017 JAK2 V617F Interp Duplicate request Normal [facility] Comment on above: Result Comment: Acco unt Credited SEE RESULT FOR MPNP. 2017 Performed By: #### Rosemarie AK2, BMP, HFP, WSR #### [facility] [address] [place] [phone] JAK2 V617F Spec Type Duplicate request Normal [facility] Comment on above: Result Comment: Acco unt Credited SEE RESULT FOR MPNP. 2017 Performed By: #### Rosemarie AK2, BMP, HFP, WSR #### [facility] [address] [place] [phone] Molecular Path Rev Duplicate request Normal [facility] Comment on above: Result Comment: Acco unt Credited SEE RESULT FOR MPNP. DM2017 Performed By: #### J AK2, BMP, HFP, WSR #### [facility] [employer] [address] [place], [place] [address] MPL Mutationon 06-15-2018 MPL Mutation Interp Duplicate request Normal [facility] Comment on above: Result Comment: Acco unt Credited SEE RESULT FOR MPNP. DM2017 Performed By: #### M PL #### [facility] [employer] [address] [place], [place] [address] Myeloprolif Neopl Pnl Bloodo n 06-15-2018 Myelo Neopl Pnl Bld (NOTE) Normal [facility] Comment on above: Result Comment: Plea se refer to [facility] Surgical Pathology report, . Performed By: #### M PNP ####[facility] [address] [place], [place] [phone] PROGRESSon 06-15-2018 PROGRESS HNO ID: [id number] Author: Vanessa Espinosa Service: (none) Author Type: [...] ABS GRAN CT + CBC (FOR REMOTE [facility] USE) - BASIC METABOLIC PNL - HEPATIC FUNCTION PNL - SED RATE WESTERGREN - BCR-ABL QUALITATIVE MULTIPLEX RT-PCR - JAK2 V617F MUTATION BLOOD - MPL MUTATION ANALYSIS BLOOD - CALR EXON 9 MUTATION ANALYSIS BLOOD 2. 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, [...] F99 See above Vanessa Espinosa MD Normal [facility] Remote Abs Gran + CBC (for F use only)on 06-15-2018 Absol Gran Count 12.48 k/uL High 1.45-7.50 [facility] Erythrocyte distribution width (RBC) [Ratio] 14.7 % Normal 11.5-15.0 [facility] Hematocrit (Bld) [Volume fraction] 46.8 % High 36.0-46.0 [facility] Hemoglobin (Bld) [Mass/Vol] 15.4 g/dL Normal 11.5-15.5 [facility] MCH (RBC) [Entitic mass] 29.2 pG Normal 26.0-34.0 [facility] MCHC (RBC) [Mass/Vol] 32.9 g/dL Normal 30.5-36.0 [facility] MCV (RBC) [Entitic vol] 88.8 fL Normal 80.0-100.0 [facility] Platelet mean volume (Bld) [Entitic vol] 9.1 fL Normal 9.0-12.7 [facility] Platelets (Bld) [#/Vol] 279 10*3/uL Normal 150-400 [facility] RBC (Bld) [#/Vol] 5.27 10*6/uL High 3.90-5.20 [facility] WBC (Bld) [#/Vol] 17.10 10*3/uL High 3.70-11.00 [facility] SURGICAL PATHOLOGYon [id number] SURGICAL PATHOLOGY PROCEDURE REPORT Specimen originated from [facility] Specimen #: [id number] Submitting Physician: VANESSA ESPINOSA MD SPECIMEN SUBMITTED [...] this sample, and cDNA prepared by reverse scaffolding helper. Multiplex RT-PCR studies were performed using fluorescently [...] developed and its performance characteristics determined by [facility]'s [facility] Pathology [facility] [place] ([facility]). It has not been cleared or approved by the FDA. [facility] is regulated under CLIA as qualified to [...] sequencing was performed on the Illumina instrument ([place], [place]). A customized bioinformatic pipeline was used to align the sequencing reads to the reference human genome (GRCh37/hg19). Benign common polymorphisms are not reported. Limitations: Sequence changes outside the analyzed regions, including intronic, noncoding, and splice-site variants, will not be identified by this test. The lower limit of detection of this assay is approximately 1% allele proportion for the JAK2 [id number] single nucleotide variant and approximately 5% allele [...] developed and its performance characteristics determined by [facility]'s [facility] Pathology [facility] Laboratory [facility] [place] ([facility]). It has not been cleared or approved by the FDA. [facility] is regulated under CLIA as qualified to [...] Receipt: 06/16/2018 Submitted: VANESSA ESPINOSA MD Location: [facility] Diagnostic interpretation performed at [facility], [address] [place] [address]. Normal [facility] Sed Rate Westergrenon 2017 Sed Rate Westergren 2 mm/hr Normal 0-20 [facility] Comment on above: Performed By: #### J AK2, BMP, HFP, WSR #### [facility] [address] [place] [address] Vital Signs Date Time Vital Sign Value Performing Clinician Faci lity 08-06-2024 15:11-0500 Body height 160 cm Lacy Remy CLINICAL MEDICAL ASSISTANT Work Phone: [facility] 08-06-2024 15:11-0500 Body mass index (BMI) [Ratio] 33.44 kg/m2 Lacy Remy CLINICAL MEDICAL ASSISTANT Work Phone: [facility] 08-06-2024 15:11-0500 Body temperature 97.59 [degF] Lacy Juniorfaustinoz CLINICAL MEDICAL ASSISTANT Work Phone: [facility] 08-06-2024 15:11-0500 Body weight 85.64 kg Lacy Juniorfaustinoz CLINICAL MEDICAL ASSISTANT Work Phone: [facility] 08-06-2024 15:11-0500 Diastolic blood pressure 86 mm[Hg] Lacy Opalz CLINICAL MEDICAL ASSISTANT Work Phone: [facility] 08-06-2024 15:11-0500 Heart rate 107 /min Lacy Opalz CLINICAL MEDICAL ASSISTANT Work Phone: [facility] 08-06-2024 15:11-0500 Respiratory rate 20 /min Lacy Opalz CLINICAL MEDICAL ASSISTANT Work Phone: [facility] 08-06-2024 15:11-0500 SaO2% (BldA) [Mass fraction] 96 % Lacy Opalz CLINICAL MEDICAL ASSISTANT Work Phone: [facility] 08-06-2024 15:11-0500 Systolic blood pressure 142 mm[Hg] Lacy Aichholz CLINICAL MEDICAL ASSISTANT Work Phone: [facility] 05-22-2024 09:00-0500 Body height 160 cm Lacy Aichholz CLINICAL MEDICAL ASSISTANT Work Phone: [facility] 05-22-2024 09:00-0500 Body mass index (BMI) [Ratio] 34.33 kg/m2 Lacy Aichholz CLINICAL MEDICAL ASSISTANT Work Phone: [facility] 05-22-2024 09:00-0500 Body temperature 98.49 [degF] Lacy Juniorhholz CLINICAL MEDICAL ASSISTANT Work Phone: [facility] 05-22-2024 09:00-0500 Body weight 87.91 kg Lacy Aichholz CLINICAL MEDICAL ASSISTANT Work Phone: [facility] 05-22-2024 09:00-0500 Diastolic blood pressure 78 mm[Hg] Lacy Aichholz CLINICAL MEDICAL ASSISTANT Work Phone: [facility] 05-22-2024 09:00-0500 Heart rate 70 /min Lacy Juniorhholz CLINICAL MEDICAL ASSISTANT Work Phone: [facility] 05-22-2024 09:00-0500 Respiratory rate 19 /min Lacy Juniorhholz CLINICAL MEDICAL ASSISTANT Work Phone: [facility] 05-22-2024 09:00-0500 SaO2% (BldA) [Mass fraction] 97 % Lacy Juniorhholz CLINICAL MEDICAL ASSISTANT Work Phone: [facility] 05-22-2024 09:00-0500 Systolic blood pressure 110 mm[Hg] Lacy Aichholz CLINICAL MEDICAL ASSISTANT Work Phone: [facility] Encounters Encounter Date Encounter Type Care Provider Facility Start: 08-28-2024 End: 08-28-2024 Refill Lacy Denisholz CLINICAL MEDICAL ASSISTANT Work Phone: [facility] Comment on above: URI, acute (Primary Dx) Start: 08-27-2024 End: 08-27-2024 ambulatory Edgardo Menon MD Facility: [facility] Start: 08-10-2024 End: 08-10-2024 Clinisync Result Encounter Generic External Data Provider [facility] Unsolicited Start: 08-10-2024 End: 08-10-2024 Clinisync Result Encounter Generic External Data Provider [facility] Unsolicited Start: 08-06-2024 End: 08-06-2024 Office outpatient visit 25 minutes Lacy Alberto CLINICAL MEDICAL ASSISTANT Work Phone: [facility] Comment on [...] 08-06-2024 End: 08-06-2024 Bamboo flowsheet Lacynatanael Alberto CLINICAL MEDICAL ASSISTANT Work Phone: [facility] Start: 08-06-2024 End: 08-06-2024 Bamboo flowsheet Lacy Remy CLINICAL MEDICAL ASSISTANT Work Phone: [facility] Start: 07-30-2024 End: 07-30-2024 ambulatory Edgardo Menon MD Facility: [facility] Start: 07-23-2024 End: 07-23-2024 Orders Only Lacy Alberto CLINICAL MEDICAL ASSISTANT Work Phone: [facility] Comment on above: 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 (Primary Dx) Start: 06-25-2024 End: 06-25-2024 Telephone encounter Lacynatanael Alberto CLINICAL MEDICAL ASSISTANT Work Phone: [facility] Start: 05-28-2024 End: 05-28-2024 Refill Lacy Aichholz CLINICAL MEDICAL ASSISTANT [facility] Phone: [facility] Comment on above: Type 2 diabetes josselin itus without complication, without long- term current use of insulin (CMS/HCC) (Primary Dx) Start: 05-22-2024 End: 05-22-2024 Bamboo flowsheet Lacy Aichholz CLINICAL MEDICAL ASSISTANT Work Phone: [facility] Start: 05-22-2024 End: 05-22-2024 Bamboo flowsheet Lacy Aichholz CLINICAL MEDICAL ASSISTANT Work Phone: [facility] Start: 05-22-2024 End: 05-22-2024 Patient encounter procedure Lacy Opalz CLINICAL MEDICAL ASSISTANT Work Phone: [facility] Comment on above: Encounter for subseq uent [...] Start: 04-30-2024 End: 05-01-2024 Refill Lacy Aichholz CLINICAL MEDICAL ASSISTANT Work Phone: [facility] Comment on above: Type 2 diabetes josselin itus without complication, without long- term current use of insulin (CMS/HCC) Start: 04-05-2024 End: 04-05-2024 Refill Lacy Aichholz CLINICAL MEDICAL ASSISTANT Work Phone: [facility] Comment on above: Type 2 diabetes josselin itus without complication, without long- term current use of insulin ([facility]) Start: 03-23-2024 End: 03-23-2024 Clinisync Result Encounter Lacy Aichholz CLINICAL MEDICAL ASSISTANT Work Phone: [facility] Unsolicited Start: 03-23-2024 End: 03-23-2024 Clinisync Result Encounter Lacy Aichholz CLINICAL MEDICAL ASSISTANT Work Phone: [facility] Unsolicited Start: 03-23-2024 End: 03-23-2024 Refill Lacy Aichholz CLINICAL MEDICAL ASSISTANT Work Phone: [facility] Comment on above: Type 2 diabetes josselin itus without complication, without long- term current use of insulin ([facility]) (Primary Dx) Start: 02-27-2024 End: 02-27-2024 Telephone encounter Lacy Aichholz CLINICAL MEDICAL ASSISTANT Work Phone: [facility] Start: 11-17-2023 End: 11-17-2023 ambulatory LACY AICHHOLZ Not Available Start: 09-09-2022 End: 09-10-2022 ambulatory [employer]IST LACY AICHHOLZ Facility:[facility] Start: 08-31-2022 End: 09-01-2022 ambulatory [employer] PL[employer] SPECIALIST LACY AICHHOLZ Facility:[facility] Start: 06-07-2022 End: 06-08-2022 ambulatory G[employer] PLANT SPECIALIST LACY AICHHOLZ Facility:[facility] Start: 12-16-2021 End: 12-17-2021 ambulatory GAS PL[employer] SPECIALIST LACY AICHHOLZ Facility:[facility] Procedures Date Procedure Procedure Detail Performing Clinician Start: 08-10-2024 Mri spinal canal cer vical w/o contrast matrl Generic External Data Provider Start: 08-06-2024 Hemoglobin glycosyla ronna a1c Lacy Aichholz CLINICAL MEDICAL ASSISTANT Work Phone: Start: 03-23-2024 ALL CBC WITH AUTO DIFF Lacy Aichholz CLINICAL MEDICAL ASSISTANT Work Phone: Start: 11-17-2023 Mammography Lacy means NP Work Phone: Plan of Treatment Date Care Activity Detail Author Start: 06-04-2025 End: 06-04-2025 Patient encounter procedure 06/04/2025 10:00 AM EST Office Visit [facility] [address] [place] [phone] Lacy Alberto, DOMINIC [address] [place] [phone] [facility] Start: 05-22-2025 Medicare Annual Well ness (AWV) Medicare Annual Wellness (AWV) [facility] Start: 03-23-2025 Urine screening for protein Diabetes: Urine Protein Screening [facility] Start: 11-16-2024 Screening for malign ant neoplasm of breast Mammogram [facility] Start: 11-16-2024 Screening for malign ant neoplasm of colon [facility] Start: 11-03-2024 Hemoglobin A1c measurement Irene betes: Hemoglobin A1C [facility] Start: 10-08-2024 End: 10-08-2024 Patient encounter procedure 10/08/2024 1:00 PM EDT Office Visit [facility] [address] [place] [phone] Lacy Alberto, DOMINIC [address] [place] [phone] [facility] Start: 08-06-2024 End: 08-06-[address] [facility] Comment on above: Arteriosclerosis of coronary artery [...] 2:40 PM EST Office Visit [facility] [address] [place] [phone] Lacy Alberto, DOMINIC [address] [place] [phone] [facility] Start: 06-22-2024 Hemoglobin A1c measurement Irene betes: Hemoglobin A1C [facility] Start: 06-21-2024 End: 06-21-2024 Patient encounter procedure 06/21/2024 10:30 AM EST Office Visit [facility] [address] [place] [phone] Lacy Alberto, DOMINIC [address] [place] [phone] [facility] Start: 05-22-2024 End: 05-22-2025 MR Lumbar spine WO contrast MR lumbar spine wo contrast Imaging Routine Spondylosis of 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 Expected: 05/22/2024 (Approximate), Expires: 05/22/2025 [facility] Work Phone: Comment on above: Expected: 05/22/2024 (Approximate), Expires: 05/22/2025 Start: 05-22-2024 End: 05-22-[address] [facility] Comment on above: BMI 32.0-32.9,adult (Primary Dx); Type 2 diabetes mellitus with diabetic polyneuropathy (CMS/HCC); Angina pectoris, unspecified (CMS/HCC); Chronic obstructive pulmonary disease, unspecified (CMS/HCC); Type 2 diabetes mellitus without complication, without long-term current use of insulin (CMS/HCC); Arteriosclerosis of coronary artery (CMS/HCC); Tobacco use; Mixed hyperlipidemia ([facility]/HCC) Start: 03-04-2024 Influenza vaccination Influenz a Vaccine (#1) [facility] Start: 12-19-2020 Hemoglobin A1c measurement Irene betes: [...] Healthcare Payers Date Payer Category Payer Medicaid [id number] 2019 Unknown 2019 Medicare (Managed Care) [facility] [id number] 2015 Medicare [id number] 1968 Unknown [id number] [id number]. 593 1968 Unknown [id number] 2.16.840.1.370191.3.579.2. 593 1968 Unknown [id number] 2.16.840.1.091862.3.579.2. 593 1968 Unknown [id number] 2.16.840.1.202331.3.579.2. 593 1968 Unknown [id number] 2.16.840.1.846427.3.579.2. 1259 1968 Unknown [id number] 2.16.840.1.348889.3.579.2. 1259 1968 Unknown [id number] 2.16.840.1.161481.3.579.2. 1259 1968 Unknown [id number] 2.16.840.1.739798.3.579.2. 196 1968 Unknown [id number] 2.16.840.1.489700.3.579.2. 196 1961 Medicaid [id number] 1961 Unknown [id number] Social History Date Type Detail Facility Start: 11-17-2023 Tobacco smoking stat [facility] Smokes tobacco daily [facility] History of [...] Sex assigned at Not on file [facility] Clinical Notes 02-27-2024 to 08-06-2024 Lacy [...] asked her to reach out to pain [facility] for this Fu in 2 months Associated [...] Lumbar back pain: Daily pain, went to [facility] pain mgmt, they had wanted her [...] (ABILIFY) 5 mg, Oral, Daily Continuous Glucose Hydro Plant Technician (FreeStyle Helen 2 [place]) device 1 each, Does not apply, Daily [...] complication, without long-term current use of insulin (CMS/[facility]) - Primary Check blood sugars daily, notify [...] Type 2 diabetes mellitus with diabetic polyneuropathy ([facility]) Recommend good blood glucose control Freq foot examinations or s/s open wounds Type 2 diabetes mellitus with other specified complication ([facility]) Associated Problem(s): Anxiety and depression (CMS/[facility]) Current meds lexapro and abilify Associated Problem(s): Bipolar disorder, current episode mixed, mild (CMS/[facility]) Current meds: lexapro and abilify Associated Problem(s): Type 2 diabetes mellitus without complication, without long-term current use of insulin ([facility]) Check blood sugars daily, notify if <70 [...] continue to use Current med: ozempic, refuses asa/statin/arb/ojhnny use A1c 8.8% Finances are tight and cannot afford healthy foods Will increase ozempic to 1mg week Cannot tolerate SGLT -2 or metformin, does not want insulin back again Associated Problem(s): Arteriosclerosis of coronary artery ([facility]) Not compliant with statin, asa, or b christiano use Associated Problem(s): Chronic obstructive pulmonary disease, unspecified ([facility]) Recommend quitting smoking No daily inhaler use Associated Problem(s): Type 2 diabetes mellitus with diabetic polyneuropathy ([facility]) Recommend good blood glucose control Freq foot examinations or s/s open wounds documented in this encounter [facility] 08-06-2024 Instructions aLcy Alberto NP - 08/06/2024 3:00 PM EST Increase ozempic to 1mg daily Continue with pain mgmt documented in this encounter [facility] 07-23-2024 History of Presen t illness Narrative Associated Problem(s): Spondylosis of 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 OARRS reviewed Will provide a refill of pain medication until seen by pain mgmt documented in this encounter [facility] 06-25-2024 Telephone encount er Note Please contact pt, her insurance company denied her MRI lumbar spine, states she needs to do 6 weeks PT Is she willing to do this, or does she want a referral to pain mgmt, and if [place] wants a referral: [place] [facility] 06-25-2024 Miscellaneous Notes Formattin g of this note might be different from the original. Please contact pt, her insurance company denied her MRI lumbar spine, states she needs to do 6 weeks PT Is she willing to do this, or does she want a referral to pain mgmt, and if she wants a referral: [place]? [place] documented in this encounter [facility] 05-22-2024 History of Presen t illness Narrative [...] order for a Rolator walker Fax number [phone] Pt is asking for a handicap plaque [...] (ABILIFY) 5 mg, Oral, Daily Continuous Glucose Hydro Plant Technician (FreeStyle Helen 2 [place]) device 1 each, Does not apply, Daily Continuous Glucose Hydro Plant Technician (FreeStyle Helen 3 [place]) device 1 each, Does not apply, Daily [...] Visit Bipolar disorder, current episode mixed, mild (CMS/[facility]) Relevant Medications ARIPiprazole (Abilify) 5 MG tablet escitalopram (Lexapro) 10 MG tablet Anxiety and depression ([facility]/HCC) Relevant Medications escitalopram (Lexapro) 10 MG tablet Arteriosclerosis of coronary artery ([facility]/HCC) Does not take stating therapy, or b christiano, does take ASA Angina pectoris, unspecified ([facility]) Hx of CAD, no active angina, does [...] (CMS/HCC) Needs to quit smoking Mixed hyperlipidemia ([facility]) Declines use of statin therapy Advised risk for stroke, AL, without use Type 2 diabetes mellitus without complication, without long-term current use of insulin ([facility]) Check blood sugars daily, notify if <70 [...] MG/DOSE,) 2 MG/3ML solution pen-injector Continuous Glucose Hydro Plant Technician (FreeStyle Helen 3 [place]) device RESOLVED: BMI 32.0-32.9,adult Type 2 diabetes mellitus with diabetic polyneuropathy ([facility]/HCC) Need for tight blood sugar control Tobacco use The patient has been advised of the risks of continued smoking: stroke, AL, all forms of cancer, lung disease, and [...] yearly and prn Associated Problem(s): Mixed hyperlipidemia ([facility]) Declines use of statin therapy Advised risk for stroke, AL, without use Associated Problem(s): Tobacco use The patient has been advised of the risks of continued smoking: stroke, AL, all forms of cancer, lung disease, and . Options for quitting smoking include: cold turkey, hypnosis, acupuncture, nicotine replacement meds (gum, lozenges, and patches), Buproprion, and Varenicline. At this time pt is encouraged to evaluate their goals for wanting to quit smoking, and reach out to provider when ready to start this process Associated Problem(s): Arteriosclerosis of coronary artery ([facility]) Does not take stating therapy, or b christiano, does take ASA Associated Problem(s): Angina pectoris, unspecified ([facility]) Hx of CAD, no active angina, does not take statin or b christiano, pt declines to take Associated Problem(s): Type 2 diabetes mellitus without complication, without long-term current use of insulin ([facility]) Check blood sugars daily, notify if <70 [...] to use documented in this encounter [facility] 05-22-2024 Instructions Lacy Alberto NP - 05/22/2024 9:00 AM EST Order MRI documented in this encounter [facility] 04-30-2024 Telephone encount er Note Patient is asking if she can get a handicap placard? MUKESH [facility] 04-30-2024 Miscellaneous Notes Formattin g of this note might be different from the original. Patient is asking if she can get a handicap placard? JN Patient said she did go up to .5 documented in this encounter [facility] 04-30-2024 Telephone encount er Note Patient said she did go up to .5 [facility] 03-23-2024 Telephone encount er Note Call from [facility] Er, Dr Nobles... pt in er [...] months since she was last seen [facility] 03-23-2024 Miscellaneous Notes Formattin g of this note might be different from the original. Call from [facility] Er, Dr Nobles... pt in er [...] last seen documented in this encounter [facility] 02-27-2024 Telephone encount er Note pt called needing a new free style helen stripper soft plastic sent into [employer] her old one no longer works and is in need of a new one [facility] 02-27-2024 Miscellaneous Notes Formattin g of this note might be different from the original. pt called needing a new free style helen stripper soft plastic sent into [employer] her old one no longer works and is in need of a new one documented in this encounter [facility] Evaluation note Diagnosis Type 2 diabetes mellitus without complication, without long-term current use of insulin (CMS/HCC) documented in this encounter [facility]* Diagnosis Type 2 [...] of insulin (CMS/HCC) documented in this encounter [facility]* Diagnosis Type 2 [...] and depression (CMS/HCC) documented in this encounter [facility]* Diagnosis Type 2 diabetes mellitus [...] insulin (CMS/HCC)- Primary documented in this encounter [facility]Evaluation note* Diagnosis Type 2 diabetes mellitus without complication, without long-term current use of insulin (CMS/HCC)- Primary documented in this encounter [facility]Evaluation note* Diagnosis Type 2 diabetes mellitus without complication, without long-term current use of insulin (CMS/HCC)- Primary documented in this encounter [facility] HealthcareEvaluation note* Diagnosis Type 2 diabetes mellitus [...] without myelopathy- Primary documented in this encounter [facility] Healthcare[facility] note* Diagnosis Type 2 diabetes mellitus [...] spine without myelopathy documented in this encounter [facility]* Diagnosis Type 2 diabetes mellitus [...] complication, without long-term current use of insulin ([facility]) Lacy Alberto NP [address] [place] [address] Referral ID Status Reason Start Date Expiration Date V isits Requested Visits Authorized [id number] Pending Review 04/05/2024 10/02/2024 1 1 Referral ID Status Reason Start Date Expiration Date Visits Re quested Visits Authorized [id number] Closed 1 1 Additional Source Comments INFORMATION SOURCE (unrecogn ized section and content) DATE CREATED AUTHOR 01/21/2019 [facility] DATE CREATED AUTHOR AUTHOR'S ORGANIZ ATION 01/30/2020 [facility] DATE CREATED AUTHOR AUTHOR'S ORGANIZ ATION 09/13/[address] [facility] DATE CREATED AUTHOR AUTHOR'S ORGANIZ ATION 08/08/2024 [facility] EPIC DATE CREATED AUTHOR AUTHOR'S ORGANIZ ATION 08/30/2024 [facility] Care Teams (unrecognized sec tion and content) Lmft Relationship Specialty Start Date End Date Fred Pryor MD [address] [place] [address] PCP - General Family Medicine 11/17/23 Lacy Alberto NP [address] [place] [address] Referring Physician Family Medicine 07/04/22 Lacy Alberto NP [address] [place] [address] Nurse Practitioner Family Medicine 11/17/23 Lmft Relationship Specialty Start Date End Date Fred Pryor MD [address] [place] [address] PCP - General Family Medicine 11/17/23 Lacy Alberto NP [address] [place] [phone] Referring Physician Family Medicine 07/04/22 Lacy Alberto NP [address] [place] [address] Nurse Practitioner Family Medicine 11/17/23 Lmft Relationship Specialty Start Date End Date Fred Pryor MD [address] [place] [address] PCP - General Family Medicine 11/17/23 Lacy Alberto NP [address] [place] [address] Referring Physician Family Medicine 07/04/22 Lacy Alberto NP [address] [place] [address] Nurse Practitioner Family Medicine 11/17/23 Lmft Relationship Specialty Start Date End Date Fred Pryor MD [address] [place] [address] PCP - General Family Medicine 11/17/23 Lacy Alberto NP [address] [place] [address] Referring Physician Family Medicine 07/04/22 Lacy Alberto NP [address] [place] [address] Nurse Practitioner Family Medicine 11/17/23 Lmft Relationship Specialty Start Date End Date Fred Pryor MD [address] [place] [address] PCP - General Family Medicine 11/17/23 Lacy Alberto NP [address] [place] [address] Referring Physician Family Medicine 07/04/22 Lacy Alberto NP [address] [place] [address] Nurse Practitioner Family Medicine 11/17/23 Lmft Relationship Specialty Start Date End Date Fred Pryor MD [address] [place] [address] PCP - General Family Medicine 11/17/23 Lacy Alberto NP [address] [place] [address] Referring Physician Family Medicine 07/04/22 Lacy Alberto NP [address] [place] [address] Nurse Practitioner Family Medicine 11/17/23 Lmft Relationship Specialty Start Date End Date Fred Pryor MD [address] [place] [address] PCP - General Family Medicine 11/17/23 Lacy Alberto NP [address] [place] [address] Referring Physician Family Medicine 07/04/22 Lacy Alberto NP [address] [place] [address] Nurse Practitioner Family Medicine 11/17/23 Lmft Relationship Specialty Start Date End Date Fred Pryor MD [address] [place] [address] PCP - General Family Medicine 11/17/23 Lacy Alberto NP [address] [place] [address] Referring Physician Family Medicine 07/04/22 Lacy Alberto NP [address] [place] [address] Nurse Practitioner Family Medicine 11/17/23 Lmft Relationship Specialty Start Date End Date Fred Pryor MD [address] [place] [address] PCP - General Family Medicine 11/17/23 Lacy Alberto NP [address] [place] [address] Referring Physician Family Medicine 07/04/22 Lacy Alberto NP [address] [place] [address] Nurse Practitioner Family Medicine 11/17/23 Lmft Relationship Specialty Start Date End Date Fred Pryor MD [address] [place] [address] PCP - General Family Medicine 11/17/23 Lacy Alberto NP [address] [place] [address] Referring Physician Family Medicine 07/04/22 Lacy Alberto NP [address] [place] [address] Nurse Practitioner Family Medicine 11/17/23 Lmft Relationship Specialty Start Date End Date Fred Pryor MD [address] [place] [address] PCP - General Family Medicine 11/17/23 Lacy Alberto NP [address] [place] [address] Referring Physician Family Medicine 07/04/22 Lacy Alberto NP [address] [place] [address] Nurse Practitioner Family Medicine 11/17/23 Lmft Relationship Specialty Start Date End Date Fred Pryor MD [address] [place] [address] PCP - General Family Medicine 11/17/23 Lacy Alberto NP [address] [place] [address] Referring Physician Family Medicine 07/04/22 Lacy Alberto NP [address] [place] [address] Nurse Practitioner Family Medicine 11/17/23 Lmft Relationship Specialty Start Date End Date Fred Pryor MD [address] [place] [address] PCP - General Family Medicine 11/17/23 Lacy Alberto NP [address] [place] [address] Referring Physician Family Medicine 07/04/22 Lacy Alberto NP [address] [place] [address] Nurse Practitioner Family Medicine 11/17/23 Reason for [...] BE BASED ON THE PRIMARY CLINICAL RECORDS. [employer] provides no warranty or guarantee of the accuracy or completeness of information in this document.
[2024-09-10 06:42] VITALS: BP 120/86; PULSE 83; TEMP 36.6; O2SAT 97
[2024-09-10 06:51] LABS: Glucometer 199 mg/dL (74-106)
[2024-09-10] MEDS: 0.9 % SODIUM CHLORIDE 500 ML IV (06:54)
[2024-09-10] MEDS: BUPIVACAINE HCL 0.25% PF 25 MG/10 ML VIAL INJ (07:40)
[2024-09-10] MEDS: DEXAMETHASONE SOD PHOS 10 MG/ML VIAL INJ (07:40)
[2024-09-10] MEDS: LIDOCAINE HCL 2% 400 MG/20 ML MDV 3 ML INJ (07:41)
[2024-09-10] MEDS: IOHEXOL 240 MG/ML - 10 ML VIAL INJ (07:41)
--- NOTE | 2024-09-10 07:42 | W.PM.PROCNOT ---
Date of procedure: 09/10/24 Pre-op diagnosis: M54.12 Post-op diagnosis: same as pre-op Procedure: Procedure: Bilateral C5-6 transforaminal epidural steroid injection Medications: Bupivacaine 0.25% 1cc, lidocaine 2% 1cc, dexamethasone 10mg The patient was seen and examined in the preoperative holding area.? Informed consent was obtained and placed on the chart.? Patient was brought to the medical procedure unit and placed in the prone position where a timeout was completed verifying the correct patient, procedure site, position, and planned special equipment using sterile aseptic technique.? Under direct fluoroscopic visualization a 25-gauge Quincke tipped spinal needle was advanced at level left C5-6 to the designated neural foramen where contrast dye was injected to show adequate spread.? There was no evidence of vascular or adverse uptake.? Epidural spread was appreciated.? The above-mentioned injectate was then placed in a 1.5 mL aliquot preceded by negative aspiration.? The needle was removed. The same procedure, at the same level, was completed on the opposite side. ? Patient was taken to the postprocedural recovery area and monitored for an appropriate length of time before found suitable for discharge in the accompaniment of a responsible adult. Anesthesia: MAC Surgeon: Vaishnavi Menon Pathology: none sent Condition: stable Disposition: no change
[2024-09-10 07:45] VITALS: BP 118/75; PULSE 85; TEMP 36.2; O2SAT 94
[2024-09-10 07:48] VITALS: BP 95/77; PULSE 85; TEMP 36.2; O2SAT 94
== END 2024-09-10 08:09 | disposition home or self-care (01) ==
LOC: SURGOUT 05:59
PROVIDERS: PCP Nurse Practitioner; Visit Provider Anesthesiology
PROC: (CPT 1992; principal; 2024-09-10 07:30)
DX: M54.12 Radiculopathy, cervical region (principal); E11.9 Type 2 diabetes mellitus without complications; Z79.85 Long-term (current) use of injectable non-insulin antidiabetic drugs
CPT/HCPCS: 36415; 64479; 82948; J0665; J1100; J2250; Q9966

== ENCOUNTER 2024-09-24 12:52 | Outpatient (OUT) | payer MEDICARE, MEDICAID, SELFPAY ==
--- NOTE | 2024-09-24 14:17 | P.CN_ITS ---
Consult Note: HPI Data of Consult Patient: known to practice within the last 3 years Consult date: 09/24/24 Requesting Physician: Vaishnavi Menon MD Primary Care Provider: Lacy Alberto NP Consult Narrative Reason for consult: neck, low back pain Narrative: 54yof who presents for assessment. notes persistence of pain throughout neck, low back. had good, but short lived relief after recent cervical epidural steroid injection. lumbar mri reviewed, significant for spondylosis in lower lumbar spine with moderate to severe stenosis at l5-s1. continues to utilize percocet, did not tolerate zonegran well. cc:: CC: Vaishnavi Menon MD Review of Systems ROS Status of ROS 10 or more systems reviewed and unremark able except as noted in history and below PFSH PFS Medical History Obesity ?E66.9 - Obesity, unspecified (ICD-10) Low back pain ?M54.50 - Low back pain, unspecified (ICD-10) Depression ?F32.A - Depression, unspecified (ICD-10) Anxiety ?F41.9 - Anxiety disorder, unspecified (ICD-10) Diabetes 1.5, managed as type 2 ?E13.9 - Other specified diabetes mellitus without complications (ICD-10) Surgical History History of facial surgery ?Z98.890 - Other specified postprocedural states (ICD-10) History of cholecystectomy ?Z90.49 - Acquired absence of other specified parts of digestive tract (ICD- 10) History of hysterectomy ?Z90.710 - Acquired absence of both cervix and uterus (ICD-10) Hx of tonsillectomy ?Z90.89 - Acquired absence of other organs (ICD-10) Hx of heart artery stent ?Z95.5 - Presence of coronary angioplasty implant and graft (ICD-10) Social History Smoking status: Current every day smoker Little interest or pleasure in doing things: not at all Feeling down, depressed, or hopeless: not at all Meds Home Medications and Allergies Home Medications ?Medication ?Instructions ?Recorded ?Confirmed ?Type aripiprazole 10 mg tablet (Abilify) 10 mg PO DAILY 07/30/24 09/10/24 History escitalopram oxalate 10 mg tablet 10 mg PO DAILY 07/30/24 09/10/24 History oxycodone-acetaminophen 5 mg-325 1 tab PO DAILY PRN pain 07/30/24 09/10/24 History mg tablet (Percocet) semaglutide 1 mg/dose (4 mg/3 mL) 0.5 mg subcut QWEEK 07/30/24 09/10/24 History subcutaneous pen injector (Ozempic) Allergies Allergy/AdvReac Type Severity Reaction Status Date / Time latex Allergy Unknown itching Verified 09/10/24 06:49 metformin Allergy Unknown Nausea Verified 09/10/24 06:49 Exam Narrative Exam Narrative: Psych-alert and oriented x 3.? Attentive and appropriate, constitutionally normal, displays normal mood and affect per situation.? There are no obvious deficits in memory, reasoning, or intellect.? Skin-no obvious rashes, bruising, or erythema noted to the patient's area of pain. Extremities-upper extremities are warm with minimal edema and palpable pulses. Cervical- tenderness to palpation noted in the cervical spine and paraspinal musculature.? Pain is elicited with extension, and lateral rotation of the cervical spine.? Range of motion is slightly diminished due to pain. Coordination remains intact.? Gait remains non-antalgic. Assessment and Plan Assessment and Plan (1) Lumbar stenosis with neurogenic claudication: (2) Cervical stenosis of spinal canal: Plan 54yof who presents for assessment. failed conservative measures, as noted. imaging reviewed, as noted. states that she has had low back injections in the past, without benefit. discussed that given cervical and lumbar findings, would likely need to discuss surgical options. will refer to dr. gamboa. she is in agreement. meds reviewed, will trial gabapentin 300mg tid. follow up in 3 months.
== END 2024-09-24 12:53 | disposition home or self-care (01) ==
LOC: PM 12:53
PROVIDERS: PCP Nurse Practitioner; Visit Provider Anesthesiology
DX: M48.062 Spinal stenosis, lumbar region with neurogenic claudication (principal); M48.02 Spinal stenosis, cervical region
CPT/HCPCS: G0463

== ENCOUNTER 2024-10-05 10:23 | Outpatient (OUT) | payer MEDICARE, MEDICAID, SELFPAY ==
--- NOTE | 2024-10-05 | XR_ITS ---
The [address] [address] Patient Name: ADDIE BEACH MRN: [id number] date: 1970 Sex: F Assigned Patient Location: Current Patient Location: Accession/Order Number: [id number] Exam Date: 10/05/2024 12:00 Report Date: 10/05/2024 12:21 At the request of: DISHA JARRETT MD Procedure: XR cervical spine 5V CLINICAL DATA: Chronic neck and back pain with radiation to the extremities. No injury. LUMBAR SPINE -4 views: COMPARISON: 11/18/2023 Standing AP as well as lateral views in neutral, flexion and extension were obtained. No acute compression fractures are identified. No displacement or instability is seen. There is slight disc space narrowing at the lumbosacral junction. Small endplate spurs are present throughout. There is mid and lower lumbar facet hypertrophy. The SI joints show minor sclerosis. No paraspinal soft tissue abnormalities are noted. XR/XR lumbar spine min 4V IMPRESSION: MILD DEGENERATIVE CHANGES, SIMILAR TO THE PRIOR. CERVICAL SPINE WITH FLEXION-EXTENSION VIEWS - 4 views COMPARISON: MRI 08/20/2024 AP as well as lateral views in neutral, flexion and extension were obtained slight reversal the normal cervical lordosis. No acute compression fractures are identified. No displacement or instability is seen. There is slight disc space narrowing at C6-7. There is mild endplate spurring and bilateral facet hypertrophy. No prevertebral soft tissue swelling is noted. IMPRESSION: MILD DEGENERATIVE CHANGES. Impression dictated by: Gloria Koch M.D.10/05/2024 12:21 PM Dictation Location: [place] [address] Electronically authenticated by: [id number] Y Date: 10/05/2024 12:21
--- NOTE | 2024-10-05 | XR_ITS ---
The [address] [address] Patient Name: ADDIE BEACH MRN: [id number] date: 1970 Sex: F Assigned Patient Location: Current Patient Location: Accession/Order Number: [id number] Exam Date: 10/05/2024 12:00 Report Date: 10/05/2024 12:21 At the request of: DISHA JARRETT MD Procedure: XR cervical spine 5V CLINICAL DATA: Chronic neck and back pain with radiation to the extremities. No injury. LUMBAR SPINE -4 views: COMPARISON: 11/18/2023 Standing AP as well as lateral views in neutral, flexion and extension were obtained. No acute compression fractures are identified. No displacement or instability is seen. There is slight disc space narrowing at the lumbosacral junction. Small endplate spurs are present throughout. There is mid and lower lumbar facet hypertrophy. The SI joints show minor sclerosis. No paraspinal soft tissue abnormalities are noted. XR/XR cervical spine 5V IMPRESSION: MILD DEGENERATIVE CHANGES, SIMILAR TO THE PRIOR. CERVICAL SPINE WITH FLEXION-EXTENSION VIEWS - 4 views COMPARISON: MRI 08/20/2024 AP as well as lateral views in neutral, flexion and extension were obtained slight reversal the normal cervical lordosis. No acute compression fractures are identified. No displacement or instability is seen. There is slight disc space narrowing at C6-7. There is mild endplate spurring and bilateral facet hypertrophy. No prevertebral soft tissue swelling is noted. IMPRESSION: MILD DEGENERATIVE CHANGES. Impression dictated by: Gloria Koch M.D.10/05/2024 12:21 PM Dictation Location: [place] [address] Electronically authenticated by: [id number] Y Date: 10/05/2024 12:21
--- OUTSIDE RECORDS SUMMARY | 2024-10-05 10:56 | XMS_ITS ---
Author Name Auto Generated Organization OHIP Care Team Providers Care Senior Analytic Consultant Name Role Phone Roya PATEL, Fred Little Primary Care Unavail able Lynsey PATEL, Kassidyrius Telles Attending Unavailable Lynsey PATEL, Andrius Vytrodrick Attending Unavailable Roya PATEL, Fred [facility] Primary Care Unavail able Roya PATEL, Fred [facility] Primary [facility] Unavail able Lynsey PATEL, Andrius Vytrodrick Attending Unavailable Roya PATEL, Fred Sidney Primary [facility] Unavail able Lynsey PATEL, Andrius Vytrodrick Attending Unavailable AICHHOLEddie, TWAN Attending Unavailable AICHHOLZ, TWAN Attending Unavailable AICAROLDO TWAN Attending Unavailable PROBLEMS No Problem Records Found PROCEDURES No Procedure Records Found RESULTS No Result Records Found ALLERGIES DATE TYPE / CODE NAME / CODE REACTION SEVERITY SOURCE DRUG/[id number] (SNOMED CT) Latex Swelling~Itching~B urning Severe (Severity Modifier) (Qualifier Value) [facility] DRUG/[id number] (SNOMED CT) metFORMIN DIARRHEA Moderate (Severity Modifier) (Qualifier Value) [facility] ENCOUNTERS ADMIT/DISCHARGE ACCOUNT NUMBER ADMITTING ENCOUNTER CLASS LOCATION SOURCE 09/24/2024/ 5 [id number] [place] 09/10/2024/ 5 [id number] [facility] 08/27/2024/ 5 [id number] [place] 08/06/2024/ 5 [id number] Ambulatory Building:[facility] 07/30/2024/ 5 [id number] [place] [facility] 05/22/2024/ 4 [id number] Ambulatory Building:[facility] 11/17/2023/ 4 [id number] Ambulatory Building:[facility] PAYERS ENCOUNTER GUARANTOR PAYER SUBSCRIBER SOURCE 09/24/2024 Esmer Pierson Cathi: [place] [address] Primary Insurance:AnthemPolicy Number: Effective Date:0115-14-74Hjun Name:COMP [address], [place] [address]JD: Esmer Pierson Cathi: [id number] [place], [place] [address]Qkb: (WP) [facility] 09/24/2024 Secondary Insurance:MedicaidPoli cy Number: Effective Date:1656-29-16Fyrq Name:MEDCP [address], [place] [address]HK: Esmer Pierson Cathi: [id number] [place], [place] [address]Mxv: (WP) [facility] 09/10/2024 Esmer Pierson CandidoniharikaKWAME: [place] [address] Primary Insurance:AnthemPolicy Number: Effective Date:5824-77-32Tidw Name:COMP [address] [address]PR: Esmer Winkler: [id number] [place], [place] [address]Ddu: (WP) [facility] 09/10/2024 Secondary Insurance:MedicaidPoli cy Number: Effective Date:4710-71-15Uvhc Name:MED [address], [place] [address]HE: Esmer LeeB: [id number] [place], [place] [address]Usq: (WP) [facility] 08/27/2024 Esmer BeachB: [place] [address] Primary Insurance:AnthemPolicy Number: Effective Date:7276-12-99Uzer Name:GABRIELE [address] [address]YD: Esmer LeeB: [id number] [place], [place] [address]Ulb: (WP) [facility] 08/27/2024 Secondary Insurance:MedicaidPoli cy Number: Effective Date:8978-79-11Svfl Name:[facility] [address] [address]UJ: Esmer BeachKWAME: [id number] [place], [place] [address]Cfy: (WP) [facility] 08/06/2024 ESMER BEACHKWAME: [address] [address]Wwv: () Primary Insurance:ANTHEM MEDICARE ADVANTAGEPolicy Number: [id number] Date:2019-07-04 ESMER BEACHKWAME: [id number] [address] [facility] 08/06/2024 Secondary Insurance:[place]: [id number] Date:2024-07-04 ESMER Jennings JESUSB: [id number] [place] [address] [facility] 07/30/2024 Esmer Pierson JesusB: [place] [address] Primary Insurance:AnthemPolicy Number: Effective Date:8018-86-86Fyth Name:COMP [address], [place] [address]OR: Esmer BeachB: [id number] [place], [place] [address]Bqx: (WP) [facility] 07/30/2024 Secondary Insurance:MedicaidPoli cy Number: Effective Date:4020-33-97Hmdt Name:MEDCP [address], [place] [address]TD: Esmer ReyTriciaB: [id number] [place], [place] [address]Ykc: (WP) [facility] 05/22/2024 ESMER Jennings JESUSB: [address] [address]Taz: (HP) Primary Insurance:ANTH MEDICARE ADVANTAGEPolicy Number: [id number] Date:2019-07-04 ESMER Jennings CATHI: [id number] [place] [address] [facility] 11/17/2023 ESMER M JESUSB: [address] [address]Qyo: (HP) Primary Insurance:ANTHEM MEDICARE ADVANTAGEPolicy Number: [id number] Date:2019-07-04 ESMER Dick WINKLER: [id number] [address] [place] [address] [facility] EP[facility]
== END 2024-10-05 10:24 | disposition home or self-care (01) ==
LOC: EC 10:24
PROVIDERS: PCP Nurse Practitioner; Visit Provider Orthopaedic Surgery Orthopaedic Surgery of the Spine
DX: M54.50 Low back pain, unspecified (principal); M54.2 Cervicalgia; M51.369 Other intervertebral disc degeneration, lumbar region without mention of lumbar back pain or lower extremity pain
CPT/HCPCS: 72050; 72110

== ENCOUNTER 2024-10-19 09:56 | Outpatient (OUT) | payer MEDICARE, MEDICAID, SELFPAY ==
--- NOTE | 2024-10-19 10:03 | XR_ITS ---
The [address] [address] Patient Name: ADDIE BEACH MRN: [id number] date: 1970 Sex: F Assigned Patient Location: Current Patient Location: Accession/Order Number: [id number] Exam Date: 10/19/2024 11:29 Report Date: 10/19/2024 11:30 At the request of: DISHA JARRETT MD Procedure: XR chest 2V PA AND LATERAL CHEST: CLINICAL HISTORY: Preoperative clearance for spine surgery. COMPARISON: 03/03/2018 There is no focal parenchymal consolidation, effusion or pneumothorax. The cardiac, hilar and mediastinal silhouettes are within normal limits. There is no vascular congestion. The visualized bony thorax is intact. There is mild endplate spurring at the spine. XR/XR chest 2V IMPRESSION: NO ACUTE CARDIOPULMONARY ABNORMALITY. Impression dictated by: Gloria Koch M.D.10/19/2024 11:30 AM Dictation Location: [place] [address] Electronically authenticated by: [id number] Y Date: 10/19/2024 11:30
--- NOTE | 2024-10-19 10:03 | ECG_ITS ---
The [facility] Test Date: 2024-10-19 Pat Name: ADDIE BEACH Department: Room: - Gender: Female [employer]: : 1970 Requested By: [id number] Order Number: [id number] Reading MD: Measurements Intervals [place] Rate: 69 P: 54 TX: 205 QRS: 47 QRSD: 77 T: 30 QT: 373 QTc: 402 Interpretive Statements SINUS RHYTHM POSSIBLE LEFT ATRIAL ENLARGEMENT [-0.1mV P WAVE IN V1/V2] ANTEROSEPTAL MYOCARDIAL INFARCTION [40+ ms Q WAVE IN V1-V4], OF INDETERMINATE AGE No previous ECG available for comparison
--- OUTSIDE RECORDS SUMMARY | 2024-10-19 10:05 | XMS_ITS | CCD ---
Author Organization [facility] Care Team Providers Care Human Intelligence Name Role Phone AICHHOLZ, ROTOPRINTER LACY Admitting Unavailable AICHHOLZ, ROTOPRINTER LACY Attending Unavailable AICHHOLZ, ROTOPRINTER LACY Primary Care Unavailable DR NAHOMY BUCHANAN V Consulting Unavailable AICHHOLZ, ROTOPRINTER LACY Consulting Unavailable AICHHOLZ, ROTOPRINTER LACY Admitting Unavailable AICHHOLZ, ROTOPRINTER LACY Attending Unavailable AICHHOLZ, ROTOPRINTER LACY Primary Care Unavailable AICHHOLZ, ROTOPRINTER LACY Consulting Unavailable AICHHOLZ, ROTOPRINTER LACY Admitting Unavailable AICHHOLZ, ROTOPRINTER LACY Attending Unavailable AICHHOLZ, ROTOPRINTER LACY Primary Care Unavailable AICHHOLZ, ROTOPRINTER LACY Primary Care Unavailable SUSANNE, ERIC Admitting Unavailable ERIC SKINNER Attending Unavailable RAFAELA .DRAGAN Consulting Unavailabl e ERIC SKINNER Consulting Unavailable CASSIE BACK Consulting Unavailable Aichholz HISTOTECHNOLOGIST SUPERVISOR, Lacy Unavailable Fred Pryor MD Primary Care Provider Aichholz HISTOTECHNOLOGIST SUPERVISOR, Lacy Unavailable Fred Pryor MD Primary Care Unavail able Lynsey PATEL, Edgardo Telles Attending Unavailable Roya PATEL, Fred Little Primary Care Unavail able Lynsey PATEL, Andrius Vytrodrick Attending Unavailable Fred Pryor MD Primary Care Unavail able Lynsey PATEL, Edgardo Telles Attending Unavailable Roya PATEL, Fred Little Primary Care Unavail able Lynsey PATEL, Andrius Telles Attending Unavailable AICHHOLZ, LACY Attending Unavailable AICHHOLZ, LACY Attending Unavailable AICHHOLZ, LACY Attending Unavailable AICHHOLZ, LACY Attending Unavailable Aichholz AVIATION PROGRAM MANAGER-ROTOPRINTER, Lacy J Primary Care Provider Allergies Allergy Classification Reported Allergen(s) Allergy Type Date of Onset Reaction(s) Facility (2 sources) Latex; Translations: [Latex] Drug allergy (disorder) 5 [facility] (20 sources) atorvastatin Drug Allergy 0 Other [facility] (20 sources) Latex Allergy to substance 7 Itching [facility] (20 sources) metFORMIN; Translations: [metFORMIN] Drug Allergy 0 Diarrhea, GI intolerance, Vomiting, GI Disturbance [facility] (20 sources) Metoprolol Drug Allergy 1 Dizziness [facility] (20 sources) pegademase bovine Drug Allergy 7 Unknown [facility] (20 sources) Poractant tianna Drug Allergy 7 Swelling [facility] (20 sources) WHEAT DEXTRIN Drug Allergy 7 GI intolerance [facility] (2 sources) atorvastatin Drug Allergy 0 muscle cramps, Other (See Comments) [facility] (1 source) pegademase bovine Drug Allergy 7 Other (See Comments) [facility] (1 source) Poractant tianna Drug Allergy 7 [facility] Wheat preparation Drug Allergy 7 GI Disturbance [facility] Medications Current Medications Medication Drug Class(es) Dates Sig (Normalized) Sig (Original) acetaminophen 325 mg / oxyCODONE hydrochloride 5 mg oral tablet (6 sources) Opioid Agonist Start: 07-23-2024 End: 07-30-2024 [...] 7 days 14 tablet 05/22/2024 05/29/2024 Active take 1 tablet by thelma th every four hours as needed for pain oxyCODONE-acetaminophen (PERCOCET) 5-325 mg per tablet Take 1 tablet by mouth every 4 (four) hours as needed for pain. Active ARIPiprazole 5 mg oral tablet (20 sources) Atypical Antipsychotic Start: 08-28-2021 End: 2025 take 1 tablet by mouth in the morning ARIPiprazole (ABILIFY) 5 mg tablet Take 1 tablet (5 mg total) by mouth in the morning. 08/28/2021 Active aspirin 81 mg delayed release oral tablet (11 sources) Platelet Aggregation Inhibitor, Nonsteroidal Anti-inflammatory Drug Start: 10-18-2024 take 1 tablet by mouth in the morning aspirin 81 mg Indications: Pre-op testing Take 1 tablet (81 mg total) by mouth in the morning. 90 tablet 10/18/2024 Active End: 10-18-2024 take 81 mg by mouth once daily aspirin 81 mg Take 81 m g by mouth daily. 10/18/2024 Discontinued (Reorder) azithromycin 250 mg oral tablet (5 sources) Macrolide Antimicrobial Start: 08-28-2024 End: 10-08-2024 azithromycin (Zithromax) 250 MG tablet Indications: URI, acute Day #1: 2 pills, Day #2-#5: 1 pill daily 6 tablet 08/28/2024 10/08/2024 Discontinued (Therapy completed) Continuous Glucose Automotive Lube Technician (FreeStyle Helen 2 Lavelle) device (20 sources) Start: 02-27-2024 End: 02-26-2025 Continuous Glucose Automotive Lube Technician (FreeStyle Helen 2 Lavelle) device Indications: Type 2 diabetes mellitus without complication, without long-term current use of insulin 1 each Daily 1 each 02/27/2024 02/26/2025 Active Start: 02-27-2024 End: 02-26-2025 Continuous Glucose Automotive Lube Technician (FreeStyle Helen 2 Lavelle) device Indications: Type 2 diabetes mellitus without complication, without long-term current use of insulin ([facility]) 1 each Daily 1 each 02/27/2024 02/26/2025 Active Continuous Glucose Sensor (FreeStyle Helen 14 Day Sensor) misc (1 source) Start: 02-07-2024 End: 03-06-2024 Continuous Glucose Sensor (FreeStyle Helen 14 Day Sensor) misc Indications: Type 2 diabetes mellitus without complication, without long-term current use of insulin (CMS/HCC) 1 each by Other route Daily for 28 days 2 each 02/07/2024 03/06/2024 Active Continuous Glucose Sensor (FreeStyle Helen 2 Sensor) misc (14 sources) Start: 07-02-2024 Continuous Glu cose Sensor (FreeStyle Helen 2 Sensor) misc USE DIRECTED to test BLOOD SUGAR change EVERY 14 days 07/02/2024 Active Start: 05-28-2024 End: 06-25-2024 Continuous Glucose Sensor (F reeStyle Helen 2 Sensor) misc Indications: Type 2 diabetes mellitus without complication, without long-term current use of insulin ([facility]) 1 each Daily for 28 days 2 each 05/28/2024 06/25/2024 Active End: 05-28-2024 Continuous Glucose Sensor (F reeStyle Helen 2 Sensor) [facility] each Daily 05/28/2024 Discontinued (Reorder) escitalopram 10 mg oral tablet (20 sources) Serotonin Reuptake Inhibitor Start: 08-28-2021 End: 2025 take 1 tablet by mouth in the morning escitalopram (LEXAPRO) 10 mg tablet Take 1 tablet (10 mg total) by mouth in the morning. 08/28/2021 Active famotidine 20 mg oral tablet (2 sources) Histamine-2 Receptor Antagonist Start: 05-04-2021 take 1 tablet by mouth in the morning famotidine (PEPCID) 20 mg tablet Take 20 mg by mouth in the morning. 05/04/2021 Active FREESTYLE HELEN 14 DAY SENSOR kit (2 sources) Start: 08-24-2021 FREESTYLE HELEN 14 DAY SENSOR kit 08/24/2021 Active gabapentin 300 mg oral capsule (4 sources) Anti-epileptic Agent Start: 09-24-2024 take 1 capsule by mouth in the morning, then take 1 capsule by mouth in the evening, then take 1 capsule by mouth at bedtime gabapentin (Neurontin) 300 MG capsule Take 300 mg by mouth in the morning and 300 mg in the evening and 300 mg before bedtime. 09/24/2024 Active 3 ml insulin glargine 100 unt/ml pen injector (2 sources) Insulin Analog insulin glargine (LANTUS, BASAGLAR) 100 unit/mL (3 mL) insulin pen Indications: type 2 diabetes mellitus Inject 50 Units under the skin in the morning. Indications: type 2 diabetes mellitus. Active naloxone (NARCAN) 4 mg/actuation spray,non-aerosol nasal spray (2 sources) Start: 01-21-2022 naloxone (NARCAN) 4 mg/actuation spray,non-aerosol nasal spray Administer 1 spray (4 mg total) into alternating nostrils as needed for opioid reversal. 1 each 1 01/21/2022 Active nitroglycerin 0.4 mg sublingual tablet (2 sources) Nitrate Vasodilator Start: 04-02-2021 nitroglycerin (NITROSTAT) 0.4 MG SL tablet 1 under the tongue as needed for angina, may repeat q5mins for up three doses 25 tablet 3 04/02/2021 Active pediatric multivitamin no.136 (CHILDREN MULTIVITAMIN) tablet,chewable (2 sources) pediatric multivitamin no.136 (CHILDREN MULTIVITAMIN) tablet,chewable Chew and swallow daily. Active prednisoLONE 3 mg/ml oral solution (2 sources) Corticosteroid Start: 01-20-2022 take 10 mL by mouth once daily prednisoLONE (PRELONE) 15 mg/5 mL syrup Take 10 mL PO QD x 5 days 50 mL 01/20/2022 Active promethazine hydrochloride 1.25 mg/ml oral solution (2 sources) Phenothiazine Start: 01-20-2022 take 15-20 mL by mouth every four to six hours as needed for nausea promethazine (PHENERGAN) 6.25 mg/5 mL syrup Take 15-20 mL by mouth every 4-6 hours as needed for nausea vomiting 200 mL 01/20/2022 Active rosuvastatin calcium 10 mg oral tablet (3 sources) HMG-CoA Reductase Inhibitor Start: 10-18-2024 take 1 tablet by mouth in the morning rosuvastatin (CRESTOR) 10 mg tablet Indications: Pre-op testing Take 1 tablet (10 mg total) by mouth in the morning. 10/18/2024 Active Start: 06-30-2021 End: 10-18-2024 take 1 tablet by mouth once daily rosuvastatin (CRESTOR) 10 mg tablet Take 1 tablet (10 mg total) by mouth daily. 06/30/2021 10/18/2024 Discontinued (Reorder) 0.25 mg, 0.5 mg dose 1.5 ml semaglutide 1.34 mg/ml pen injector (2 sources) semaglutide (OZE MPIC) 0.25 mg or 0.5 mg(2 mg/1.5 mL) pen injector Inject 0.75 mg under the skin every 7 days. Pt takes on Active semaglutide (Ozempic, 1 MG/DOSE,) 4 MG/3ML solution pen-injector (11 sources) Start: 10-08-2024 End: 11-05-2024 inject 1 mg by subcutaneous injection every week semaglutide (Ozempic, 1 MG/DOSE,) 4 MG/3ML solution pen-injector Indications: Type 2 diabetes mellitus without complication, without long-term current use of insulin Inject 1 mg under the skin 1 (one) time per week for 28 days 3 mL 3 10/08/2024 11/05/2024 Active Start: 08-06-2024 End: 10-08-2024 inject 1 mg by subcutaneous injection every week semaglutide (Ozempic, 1 MG/DOSE,) 4 MG/3ML solution pen-injector Indications: Type 2 diabetes mellitus without complication, without long-term current use of insulin Inject 1 mg under the skin 1 (one) time per week for 28 days 3 mL 3 08/06/2024 10/08/2024 Discontinued (Reorder) Start: 08-06-2024 inject 1 mg by subcu taneous injection every week semaglutide (Ozempic, 1 MG/DOSE,) 4 MG/3ML solution pen-injector Indications: Type 2 diabetes mellitus without complication, without long-term current use of insulin Inject 1 mg under the skin 1 (one) time per week for 28 days 3 mL 3 08/06/2024 Active Start: 08-06-2024 End: 09-03-2024 inject 1 mg by subcutaneous injection every week semaglutide (Ozempic, 1 MG/DOSE,) 4 MG/3ML solution pen-injector Indications: Type 2 diabetes mellitus without complication, without long-term current use of insulin ([facility]) Inject 1 mg under the skin 1 (one) time per week for 28 days 3 mL 3 08/06/2024 09/03/2024 Active zonisamide 100 mg oral capsule (3 sources) Anti-epileptic Agent Start: 08-27-2024 End: 10-08-2024 take 1 capsule by mouth in the morning zonisamide (Zonegran) 100 MG capsule Take 100 mg by mouth in the morning and 100 mg before bedtime. 08/27/2024 10/08/2024 Discontinued (Therapy completed) Completed/Discontinued Medications Medication Drug Class(es) Dates Sig (Normalized) Sig (Original) Continuous Glucose Automotive Lube Technician (FreeStyle Helen 3 Lavelle) device (3 sources) Start: 05-22-2024 End: 05-28-2024 Continuous Glucose Automotive Lube Technician (FreeStyle Helen 3 Lavelle) device Indications: Type 2 diabetes mellitus without complication, without long-term current use of insulin (CMS/HCC) 1 each Daily 3 each 05/22/2024 05/28/2024 Discontinued (Therapy completed) Start: 05-22-2024 End: 06-21-2024 Continuous Glucose Automotive Lube Technician (FreeStyle Ehlen 3 Lavelle) device Indications: Type 2 diabetes mellitus without [...] disease (20 sources) Atherosclerotic heart disease of [place] coronary artery without angina pectoris; Translations: [Coronary [...] 11-17-2023 Chronic Diseases of white blood cells (20 sources) Leukocytosis; Translations: [Elevated white blood cell count, unspecified] Onset: 09-14-2016 11-17-2023 Chronic Disorders of lipid metabolism (20 sources) Pure hypercholesterolemia, unspecified; Translations: [Mixed hyperlipidemia] Onset: 03-31-2020 11-17-2023 Chronic Disorders usually diagnosed in infancy, childhood, or adolescence (1 source) Other specified behavioral and emotional disorders with onset usually occurring in childhood and adolescence; Translations: [OT BEHAVR EMOTIONAL D/O CHILD ADOL] Onset: 09-13-2022 Chronic Esophageal disorders (20 sources) Gastro-esophageal reflux disease without esophagitis; Translations: [Gastroesophageal reflux disease without esophagitis] Onset: 09-13-2022 11-17-2023 Chronic Genitourinary symptoms and ill-defined conditions (4 sources) Hematuria, unspecified; Translations: [HEMATURIA UNSPECIFIED] Onset: 09-09-2022 Episodic Mood disorders (20 sources) Mixed bipolar affective disorder, mild; Translations: [Bipolar disorder, current episode mixed, mild] Onset: 07-27-2023 07-27-2023 Chronic Other aftercare (1 source) detention (current) use of aspirin; Translations: [GROUP HOME CURRENT USE OF ASPIRIN] Onset: 09-13-2022 Episodic Other aftercare (1 source) Other termite technician (current) drug therapy; Translations: [OTH GROUP HOME CURRENT DRUG THERAPY] Onset: 09-13-2022 Episodic [...] [RESTLESS LEGS SYNDROME] Onset: 09-13-2022 Chronic Other lower respiratory disease (2 sources) Dyspnea; Translations: [Dyspnea, unspecified] 10-18-2024 Episodic Other non-traumatic joint disorders (2 sources) Rotator cuff arthropathy of right shoulder; Translations: [Other specific arthropathies, not elsewhere classified, right shoulder] Onset: 09-18-2020 09-18-2020 Chronic Other nutritional; endocrine; and metabolic disorders (20 sources) Body mass index 30+ - obesity; Translations: [Body mass index (BMI) 32.0-32.9, adult] Onset: 04-02-2021 Resolved: 05-22-2024 04-05-2024 Chronic Other nutritional; endocrine; and metabolic disorders (2 sources) Obesity; Translations: [Class 2 obesity in adult] Onset: 02-26-2020 02-26-2020 Chronic Other screening for suspected conditions (not mental disorders or infectious disease) (20 sources) Encounter for screening mammogram for malignant neoplasm of breast; Translations: [Patient encounter status] Onset: 08-31-2022 Episodic Residual codes; unclassified (20 sources) Obstructive sleep apnea syndrome; Translations: [Obstructive [...] region] Onset: 10-08-2016 11-17-2023 Chronic Substance-related disorders (6 sources) Nicotine dependence, cigarettes, uncomplicated; Translations: [Tobacco dependence caused by cigarettes] Onset: 09-13-2022 10-08-2024 Chronic Past or Other Problems Problem Classification Problem Date Documented Date Episodic/Chronic Diseases of mouth; excluding dental (2 sources) Uvular hypertrophy; Translations: [Other lesions of oral mucosa] Onset: 04-06-2021 04-06-2021 Episodic Fluid and electrolyte disorders (2 sources) Dehydration; Translations: [Dehydration] Onset: 08-29-2019 08-29-2019 Episodic Immunizations and screening for infectious disease (20 sources) Raised antinuclear antibody; Translations: [Other specified abnormal immunological findings in serum] Onset: 11-17-2023 11-17-2023 Episodic Malaise and fatigue (2 sources) Right hemiparesis; Translations: [Weakness] Onset: 09-17-2020 09-17-2020 Episodic Mood disorders (18 sources) Mood disorders; Translations: [DEPRESSION UNSPECIFIED] Onset: 05-20-2021 Resolved: 05-22-2024 05-22-2024 Other aftercare (1 source) intermediate designer (current) use of insulin; Translations: [GROUP HOME CURRENT USE OF INSULIN] Onset: 12-18-2021 Episodic Other and unspecified benign neoplasm (20 sources) History of polyp of colon; Translations: [History of colon polyps] Onset: 11-17-2023 11-17-2023 Episodic Other hematologic conditions (2 sources) Erythrocytosis; Translations: [Secondary polycythemia] Onset: 03-27-2021 03-27-2021 Episodic Other non-traumatic joint disorders (20 sources) Hip pain; Translations: [Pain in right hip] Onset: 11-17-2023 11-17-2023 Episodic Other non-traumatic joint disorders (1 source) Pain in right hip joint; Translations: [Pain in right hip] Onset: 11-17-2023 11-17-2023 Episodic Other upper respiratory disease (20 sources) Cyst of nasopharynx; Translations: [Other diseases of pharynx] Onset: 10-23-2020 11-17-2023 Episodic Other upper respiratory disease (2 sources) Deviated nasal septum; Translations: [Deviated nasal septum] Onset: 10-23-2020 10-23-2020 Episodic Other upper respiratory disease (2 sources) Bleeding from nose; Translations: [Epistaxis] Onset: 12-16-2020 12-16-2020 Episodic Other upper respiratory infections (7 sources) Acute upper respiratory infection; Translations: [Acute upper respiratory infection, unspecified] Onset: 08-28-2024 Resolved: 10-08-2024 08-28-2024 Episodic Residual codes; unclassified (18 sources) Tobacco use and exposure - finding; Translations: [Tobacco use] Onset: 05-22-2024 Resolved: 10-08-2024 05-22-2024 Episodic Residual codes; unclassified (2 sources) History of surgical procedure on mouth; Translations: [Acquired absence of other organs] Onset: 02-03-2022 02-03-2022 Episodic Spondylosis; intervertebral disc disorders; other back problems (20 sources) Spinal stenosis in cervical region; Translations: [Spinal stenosis, cervical region] Onset: 03-31-2017 11-17-2023 Episodic Viral infection (20 sources) Herpes simplex; Translations: [Herpesviral infection, unspecified] Onset: 11-17-2023 11-17-2023 Episodic Results Test Name Value Interpretation Reference Range Facility POCT [facility] 10-18-2024 [facility] No Panel InformationOrdered By: Radiologist Radiology on 10-05-2024 [facility] Work Phone: No Panel Informationon 10-05 Radiology Study observation (narrative) [facility] XR CERVICAL SPINE 5Von 10-[address] [address] XRay Report Signed Patient: ESMER BEACH MR#: [id number] : 1970 Acct:[id number] Age/Sex: 54 / F ADM Date: 10/05/24 Loc: Attending Dr: Obdulio Coles M.D. Ordering Physician: Obdulio Coles M.D. Date of Service: 10/05/24 Procedure(s): XR cervical spine 5V Accession Number(s): [id number] cc: Lacy Alberto NP; Obdulio Coles M.D. [place] [address] Patient Name: ESMER BEACH MRN: [facility]:[id number] date: 1970 Sex: F Assigned Patient Location: Current Patient Location: Accession/Order Number: [id number] Exam Date: 10/05/2024 12:00 Report Date: 10/05/2024 12:21 At the request of: OBDULIO COLES MD Procedure: XR cervical spine 5V CLINICAL DATA: Chronic neck and back pain with radiation to the extremities. No injury. LUMBAR SPINE -4 views: COMPARISON: 11/18/2023 Standing AP as well as lateral views in neutral, flexion and extension were obtained. No acute compression fractures are identified. No displacement or instability is seen. There is slight disc space narrowing at the lumbosacral junction. Small endplate spurs are present throughout. There is mid and lower lumbar facet hypertrophy. The SI joints show minor sclerosis. No paraspinal soft tissue abnormalities are noted. XR/XR cervical spine 5V IMPRESSION: MILD DEGENERATIVE CHANGES, SIMILAR TO THE PRIOR. CERVICAL SPINE WITH FLEXION-EXTENSION VIEWS - 4 views COMPARISON: MRI 08/20/2024 AP as well as lateral views in neutral, flexion and extension were obtained slight reversal the normal cervical lordosis. No acute compression fractures are identified. No displacement or instability is seen. There is slight disc space narrowing at C6-7. There is mild endplate spurring and bilateral facet hypertrophy. No prevertebral soft tissue swelling is noted. IMPRESSION: MILD DEGENERATIVE CHANGES. Impression dictated by: Gloria Koch M.D.10/05/2024 12:21 PM Dictation Location: [place] [address] Electronically authenticated by: [id number] Y Date: 10/05/2024 12:21 Dictated By: Gloria Koch M.D. Signed By: 10/05/24 1223 DD/ 1221 TD/TT: Direct Marketing Specialist: [facility] Radiology, Radiologist, - 10/05/2024 The [place] [id number] XRay Report Signed Patient: ESMER BEACH MR#: [id number] : 1970 Acct:[id number] Age/Sex: 54 / F ADM Date: 10/05/24 Loc: EC Attending Dr: Obdulio Coles M.D. Ordering Physician: Obdulio Coles M.D. Date of Service: 10/05/24 Procedure(s): XR cervical spine 5V Accession Number(s): [id number] cc: Lacy Alberto HISTOTECHNOLOGIST SUPERVISOR; Obdulio Coles M.D. The [place] [address] Patient Name: ESMER BEACH MRN: [facility]:[id number] date: 1970 Sex: F Assigned Patient Location: Current Patient Location: Accession/Order Number: [id number] Exam Date: 10/05/2024 12:00 Report Date: 10/05/2024 12:21 At the request of: OBDULIO COLES MD Procedure: XR cervical spine 5V CLINICAL DATA: Chronic neck and back pain with radiation to the extremities. No injury. LUMBAR SPINE -4 views: COMPARISON: 11/18/2023 Standing AP as well as lateral views in neutral, flexion and extension were obtained. No acute compression fractures are identified. No displacement or instability is seen. There is slight disc space narrowing at the lumbosacral junction. Small endplate spurs are present throughout. There is mid and lower lumbar facet hypertrophy. The SI joints show minor sclerosis. No paraspinal soft tissue abnormalities are noted. XR/XR cervical spine 5V IMPRESSION: MILD DEGENERATIVE CHANGES, SIMILAR TO THE PRIOR. CERVICAL SPINE WITH FLEXION-EXTENSION VIEWS - 4 views COMPARISON: MRI 08/20/2024 AP as well as lateral views in neutral, flexion and extension were obtained slight reversal the normal cervical lordosis. No acute compression fractures are identified. No displacement or instability is seen. There is slight disc space narrowing at C6-7. There is mild endplate spurring and bilateral facet hypertrophy. No prevertebral soft tissue swelling is noted. IMPRESSION: MILD DEGENERATIVE CHANGES. Impression dictated by: Gloria Koch M.D.10/05/2024 12:21 PM Dictation Location: [place] [address] Electronically authenticated by: [id number] Y Date: 10/05/2024 12:21 Dictated By: Gloria Koch M.D. Signed By: 10/05/24 1223 DD/ 1221 TD/TT: Direct Marketing Specialist: PRASANNA [facility] XR LUMBAR [place]INE [place] [address] [place] [address] XRay Report Signed Patient: ESMER BEACH MR#: [id number] : 1970 Acct:[id number] Age/Sex: 54 / F ADM Date: 10/05/24 Loc: Attending Dr: Obdulio Coles M.D. Ordering Physician: Obdulio Coles M.D. Date of Service: 10/05/24 Procedure(s): XR lumbar spine min 4V Accession Number(s): [id number] cc: Lacy Alberto HISTOTECHNOLOGIST SUPERVISOR; Obdulio Coles M.D. [place] [id number] Patient Name: ESMER BEACH MRN: [id number] date: 1970 Sex: F Assigned Patient Location: Current Patient Location: Accession/Order Number: [id number] Exam Date: 10/05/2024 12:00 Report Date: 10/05/2024 12:21 At the request of: OBDULIO COLES MD Procedure: XR cervical spine 5V CLINICAL DATA: Chronic neck and back pain with radiation to the extremities. No injury. LUMBAR SPINE -4 views: COMPARISON: 11/18/2023 Standing AP as well as lateral views in neutral, flexion and extension were obtained. No acute compression fractures are identified. No displacement or instability is seen. There is slight disc space narrowing at the lumbosacral junction. Small endplate spurs are present throughout. There is mid and lower lumbar facet hypertrophy. The SI joints show minor sclerosis. No paraspinal soft tissue abnormalities are noted. XR/XR lumbar spine min 4V IMPRESSION: MILD DEGENERATIVE CHANGES, SIMILAR TO THE PRIOR. CERVICAL SPINE WITH FLEXION-EXTENSION VIEWS - 4 views COMPARISON: MRI 08/20/2024 AP as well as lateral views in neutral, flexion and extension were obtained slight reversal the normal cervical lordosis. No acute compression fractures are identified. No displacement or instability is seen. There is slight disc space narrowing at C6-7. There is mild endplate spurring and bilateral facet hypertrophy. No prevertebral soft tissue swelling is noted. IMPRESSION: MILD DEGENERATIVE CHANGES. Impression dictated by: Gloria Koch M.D.10/05/2024 12:21 PM Dictation Location: [place] [address] Electronically authenticated by: [id number] Y Date: 10/05/2024 12:21 Dictated By: Gloria Koch M.D. Signed By: 10/05/24 1223 DD/ 1221 TD/TT: Direct Marketing Specialist: [facility] Radiology, Radiologist, MD - 10/05/2024 [place] [address] XRay Report Signed Patient: ESMER BEACH MR#: [id number] : 1970 Acct:[id number] Age/Sex: 54 / F ADM Date: 10/05/24 Loc: EC Attending Dr: Obdulio Coles M.D. Ordering Physician: Obdulio Coles M.D. Date of Service: 10/05/24 Procedure(s): XR lumbar spine min 4V Accession Number(s): [id number] cc: Lacy Alberto NP; Obdulio Coles M.D. The [place] [id number] Patient Name: ESMER BEACH MRN: [facility]:[id number] date: 1970 Sex: F Assigned Patient Location: Current Patient Location: Accession/Order Number: [id number] Exam Date: 10/05/2024 12:00 Report Date: 10/05/2024 12:21 At the request of: OBDULIO COLES MD Procedure: XR cervical spine 5V CLINICAL DATA: Chronic neck and back pain with radiation to the extremities. No injury. LUMBAR SPINE -4 views: COMPARISON: 11/18/2023 Standing AP as well as lateral views in neutral, flexion and extension were obtained. No acute compression fractures are identified. No displacement or instability is seen. There is slight disc space narrowing at the lumbosacral junction. Small endplate spurs are present throughout. There is mid and lower lumbar facet hypertrophy. The SI joints show minor sclerosis. No paraspinal soft tissue abnormalities are noted. XR/XR lumbar spine min 4V IMPRESSION: MILD DEGENERATIVE CHANGES, SIMILAR TO THE PRIOR. CERVICAL SPINE WITH FLEXION-EXTENSION VIEWS - 4 views COMPARISON: MRI 08/20/2024 AP as well as lateral views in neutral, flexion and extension were obtained slight reversal the normal cervical lordosis. No acute compression fractures are identified. No displacement or instability is seen. There is slight disc space narrowing at C6-7. There is mild endplate spurring and bilateral facet hypertrophy. No prevertebral soft tissue swelling is noted. IMPRESSION: MILD DEGENERATIVE CHANGES. Impression dictated by: Gloria Koch M.D.10/05/2024 12:21 PM Dictation Location: [place] [address] Electronically authenticated by: [id number] Y Date: 10/05/2024 12:21 Dictated By: Gloria Koch M.D. Signed By: 10/05/24 1223 DD/ 1221 TD/TT: Direct Marketing Specialist: [facility] MR Cervical spine CATALINA de luna 08-10-2024 [place] [address] Magnetic Resonance Report Signed Patient: ESMER BEACH MR#: [id number] : 1970 Acct:[id number] Age/Sex: 54 / F ADM Date: 08/10/24 Loc: MRI Attending Dr: Edgardo Menon M.D. Ordering Physician: Edgardo Menon M.D. Date of Service: 08/10/24 Procedure(s): MR cervical spine wo con Accession Number(s): [id number] cc: Lacy Alberto NP; Edgardo Menon M.D. [place] [address] Patient Name: ESMER BEACH MRN: [facility]:[id number] date: 1970 Sex: F Assigned Patient Location: MRI Current Patient Location: MRI Accession/Order Number: [id number] Exam Date: 08/10/2024 13:10 Report Date: 08/10/2024 [...] Signed By: 08/10/24 1459 DD/ 1456 TD/TT: Direct Marketing Specialist: [facility] Radiology, Radiologist, - 08/10/2024 [place] [address] Magnetic Resonance Report Signed Patient: ESMER BEACH MR#: [id number] : 1970 Acct:[id number] Age/Sex: 54 / F ADM Date: 08/10/24 Loc: MRI Attending Dr: Edgardo Menon M.D. Ordering Physician: Edgardo Menon M.D. Date of Service: 08/10/24 Procedure(s): MR cervical spine wo con Accession Number(s): [id number] cc: Lacy Alberto HISTOTECHNOLOGIST SUPERVISOR; Edgardo Menon M.D. [facility] [place] [id number] Patient Name: ESMER BEACH MRN: [facility]:[id number] date: 1970 Sex: F Assigned Patient Location: MRI Current Patient Location: MRI Accession/Order Number: [id number] Exam Date: 08/10/2024 13:10 Report Date: 08/10/2024 [...] Signed By: 08/10/24 1459 DD/ 1456 TD/TT: Direct Marketing Specialist: [facility] Radiology Study observation (narrative) [facility] MR Cervical spine WO contras tOrdered By: Radiologist Radiology on 08-10-2024 [facility] Work Phone: HbA1c (Bld) [Mass fraction]o n 08-06-2024 Interpretation and review of laboratory results Abnormal [facility] - Hematology and Cell countson 08-06-2024 HbA1c (Bld) [Mass fraction] 8.80 % [facility] ALL CBC WITH AUTO DIFFon BASOPHILS ABSOLUTE AUTO 0.1 [facility] Basophils/100 WBC (Bld) 0.6 % 0.2 - 2.0 % [facility] Eosinophils/100 WBC (Bld) 1.7 % 0.9 - 7.0 % [facility] Erythrocyte distribution width (RBC) [Ratio] 13.8 % 11.0 - 15.0 % [facility] Hematocrit (Bld) [Volume fraction] 55.5 % High 36.0 - 48.0 % [facility] Hemoglobin (Bld) [Mass/Vol] 18.7 g/dL High 12.0 - 16.0 g/dL [facility] IMMATURE GRANULOCYTES ABS AUTO 0.03 [facility] Immature granulocytes/100 WBC (Bld) 0.2 % 0.0 - 0.5 % [facility] Interpretation and review of laboratory results Abnormal [facility] LYMPHOCYTES ABSOLUTE AUTO 2.9 [facility] Lymphocytes/100 WBC (Bld) 23.1 % 20.5 - 60.0 % [facility] MCH (RBC) [Entitic mass] 30.6 pg 26.7 - 34.0 pg [facility] MCHC (RBC) [Mass/Vol] 33.7 g/dL 29.9 - 35.2 g/dL [facility] MCV (RBC) [Entitic vol] 90.7 fL 81.0 - 99.0 fL [facility] MONOCYTES ABSOLUTE AUTO 0.6 [facility] Monocytes/100 WBC (Bld) 4.5 % 1.7 - 12.0 % [facility] NEUTROPHILS ABSOLUTE AUTO 8.9 High [facility] Neutrophils/100 WBC (Bld) 69.9 % 43.0 - 75.0 % [facility] Platelet mean volume (Bld) [Entitic vol] 9.2 fL Low 9.5 - 13.5 fL [facility] TBH EO # 0.2 [facility] PLT [address] [facility] RBC 6.12 High [facility] WBC 12.7 High [facility] CBC W MANUAL DIFFon 09-10-19 23 ATYPICAL LYMPH # 1.49 103/ul Normal [facility] Comment on above: Performed By: #### C EMANI #### [facility] [address] [place] [address] Dr. Shakira Bahena ATYPICAL LYMPH % 8 % Normal [facility] Comment on above: Performed By: #### C EMANI #### [facility] [address] [place] [address] Dr. Shkaira Bahena BAND # 0.0 103/ul Normal 0.0-0.3 [facility] Comment on above: Performed By: #### C EMANI #### [facility] [address] [place] [address] Dr. Shakira Bahena BAND % 0 % Normal 0-5 [facility] Comment on above: Performed By: #### C EMANI #### [facility] [address] [place] [address] Dr. Shakira Bahena BASOM # 0.00 103/ul Normal 0.00-0.10 [facility] Comment on above: Performed By: #### C EMANI #### [facility] [address] [place] [address] Dr. Shakira Bahena BASOM % 0.0 % Critically low 0.2-2.0 [facility] Comment on above: Performed By: #### C BCMAN #### [facility] [address] [place] [address] [address] Shakira Bahena BLAST # Normal [facility] Comment on above: Performed By: #### C BCMAN #### [facility] [address] [place] [address] Dr. Shakira Bahena BLAST % Normal [facility] Comment on above: Performed By: #### C BCANGELA #### [facility] [address] [place] [address] Dr. Shakira Bahena CORRECTED WBC Normal 4.0-11.0 [facility] Comment on above: Performed By: #### C BCANGELA #### [facility] [address] [place] [address] Dr. Shakira Bahena EOS # 0.56 103/ul Normal 0.00-0.70 [facility] Comment on above: Performed By: #### C BCANGELA #### [facility] [address] [place] [address] Dr. Shakira Bahena EOS% 3.0 % Normal 0.9-7.0 [facility] Comment on above: Performed By: #### C BCANGELA #### [facility] [address] [place] [address] Dr. Shakira Bahena HCT 50.8 % Critically high 36.0-48.0 [facility] Comment on above: Performed By: #### C BCMAN #### [facility] [address] [place] [address] Dr. Shakira Bahena HGB 17.7 g/dl Critically high 12.0-16.0 [facility] Comment on above: Performed By: #### C BCMAN #### [facility] [address] [place] [address] Dr. Shakira Bahena LYMPHM # 1.30 103/ul Normal 1.20-3.80 [facility] Comment on above: Performed By: #### C BCMAN #### [facility] [address] [place] [address] Dr. Shakira Bahena LYMPHM% 7.0 % Critically low 20.5-60.0 [facility] Comment on above: Performed By: #### Elma JOAQUIN #### [facility] [address] [place] [address] Dr. Shakira Bahena MCH 30.7 pg Normal 26.7-34.0 [facility] Comment on above: Performed By: #### C EMANI #### [facility] [address] [place] [address] Dr. Shakira Bahena MCHC 34.8 g/dl Normal 29.9-35.2 [facility] Comment on above: Performed By: #### C EMANI #### [facility] [address] [place] [address] Dr. Shakira Bahena MCV 88.0 fL Normal 81.0-99.0 [facility] Comment on above: Performed By: #### Elma JOAQUIN #### [facility] [address] [place] [address] Dr. Shakira Bahena METAMYELOCYTE # Normal [facility] Comment on above: Performed By: #### Elma JOAQUIN #### [facility] [address] [place] [address] Dr. Shakira Bahena METAMYELOCYTE % Normal [facility] Comment on above: Performed By: #### Elma JOAQUIN #### [facility] [address] [place] [address] Dr. Shakira Bahena MONOM# 0.37 103/ul Normal 0.30-0.80 [facility] Comment on above: Performed By: #### C EMANI #### [facility] [address] [place] [address] Dr. Shakira Bahena MONOM% 2.0 % Normal 1.7-12.0 [facility] Comment on above: Performed By: #### C EMANI #### [facility] [address] [place] [address] Dr. Shakira Bahena MPV 10.1 fL Normal 9.5-13.5 [facility] Comment on above: Performed By: #### C EMANI #### [facility] [address] [place] [address] [address] Shakira Bahena MYELOCYTE # Normal [facility] Comment on above: Performed By: #### C EMANI #### [facility] [address] [place] [address] [address] Shakira Bahena MYELOCYTE % Normal [facility] Comment on above: Performed By: #### C EMANI #### [facility] [address] [place] [address] [address] Shakira Bahena NRBC Normal [facility] Comment on above: Performed By: #### C EMANI #### [facility] [address] [place] [address] [address] Shakira Bahena PLT 235 103/ul Normal 150-450 [facility] Comment on above: Performed By: #### C EMANI #### [facility] [address] [place] [address] [address] Shakira Bahena RBC 5.77 106/ul Critically high 4.20-5.40 [facility] Comment on above: Performed By: #### C EMANI #### [facility] [address] [place] [address] [address] Shakira Bahena RDW 14.5 % Normal 11.0-15.0 [facility] Comment on above: Performed By: #### C EMANI #### [facility] [address] [place] [address] [address] Shakira Bahena SEG # 14.88 103/ul Critically high 1.40-6.50 [facility] Comment on above: Performed By: #### C BCANGELA #### [facility] [address] [place] [address] [address] Shakira Bahena SEG % 80.0 % Critically high 43.0-75.0 [facility] Comment on above: Performed By: #### C EMANI #### [facility] [address] [place] [address] [address] Shakira Bahena WBC 18.6 103/ul Critically high 4.0-11.0 [facility] Comment on above: Performed By: #### C EMANI #### [facility] [address] [place], [place] [address] ABD/PELVIS WO CONon [...] CASSIE BACK Date: 2022-09-09 21:39 Normal [facility] ER URINE PROFILEon 3 Bilirubin Ql (U) Negative Normal NEGATIVE [facility] Comment on above: Performed By: #### U MICRO, ERUR #### [facility] [address] [place], [place] [address] Dr. Shakira Bahena Clarity (U) CLEAR Normal CLEAR [facility] Comment on above: Performed By: #### U MICRO, ERUR #### [facility] [address] [place] [address] [address] Shakira Bahena Color (U) RED Abnormal YELLOW [facility] Comment on above: Performed By: #### U MICRO, ERUR #### [facility] [address] [place] [address] [address] Shakira FORDE A micrscopic examination will be performed if indicated. Normal [facility] Comment on above: Performed By: #### U MICRO, ERUR #### [facility] [address] [place] [address] [address] Shakira Bahena Glucose Ql (U) Negative Normal NEGATIVE [facility] Comment on above: Performed By: #### U MICRO, ERUR #### [facility] [address] [place] [address] Dr. Shakira Bahena Hemoglobin Ql (U) LARGE Abnormal NEGATIVE [facility] Comment on above: Performed By: #### U MICRO, ERUR #### [facility] [address] [place] [address] [address] Shakira Bahena Ketones Ql (U) Negative Normal NEGATIVE [facility] Comment on above: Performed By: #### U MICRO, ERUR #### [facility] [address] [place] [address] [address] Shakira Bahena LEUKOCYTES TRACE Abnormal NEGATIVE [facility] Comment on above: Performed By: #### U MICRO, ERUR #### [facility] [address] [place] [address] [address] Shakira Bahena Nitrite Ql (U) Negative Normal NEGATIVE [facility] Comment on above: Performed By: #### U MICRO, ERUR #### [facility] [address] [place] [address] [address] Shakira Bahena pH (U) 5.5 [pH] Normal 5-9 [facility] Comment on above: Performed By: #### U MICRO, ERUR #### [facility] [address] [place] [address] Dr. Shakira Bahena Protein (U) [Mass/Vol] 100 mg/dL Abnormal NEGAT XAVIER/ TRACE [facility] Comment on above: Performed By: #### U MICRO, ERUR #### [facility] [address] [place] [address] Dr. Shakira Bahena SPEC GRAVITY 1.010 Normal 1.005-<=1.02 5 [facility] Comment on above: Performed By: #### U MICRO, ERUR #### [facility] [address] [place] [address] Dr. Shakira Bahena UR MICRO IND INDICATED Normal [facility] Comment on above: Performed By: #### U MICRO, ERUR #### [facility] [address] [place] [address] Dr. Shakira Bahena Urobilinogen Qn (U) 1.0 {Navin'U}/dL Normal 0.2 - 1. 0 [facility] Comment on above: Performed By: #### U MICRO, ERUR #### [facility] [address] [place] [address] Dr. Shakira Bahena LACTATE/LACTIC ACIDon 2022 Lactate [Moles/Vol] 0.7 mmol/L Normal 0.4-2.0 [facility] Comment on above: Performed By: #### L ACT #### [facility] [address] [place] [address] Dr. Shakira Bahena PROF 14(COMP METB)on 023 Albumin [Mass/Vol] 3.5 g/dL Normal 3.4-5.0 [facility] Comment on above: Performed By: #### P T, PTT #### [facility] [address] [place] [address] Dr. Shakira Bahena Albumin/Globulin [Mass ratio] 1.1 {ratio} Normal [facility] Comment on above: Performed By: #### P T, PTT #### [facility] [address] [place] [address] Dr. Shakira Bahena ALP [Catalytic activity/Vol] 104 U/L Normal 46-116 [facility] Comment on above: Performed By: #### P T, PTT #### [facility] [address] [place] [address] Dr. Shakira Bahena ALT [Catalytic activity/Vol] 20 U/L Normal 14-59 [facility] Comment on above: Performed By: #### P T, PTT #### [facility] [address] [place] [address] Dr. Shakira Bahena Anion gap [Moles/Vol] 9.9 mmol/L Normal [facility] Comment on above: Performed By: #### P T, PTT #### [facility] [address] [place] [address] [address] Shakira Bahena AST [Catalytic activity/Vol] 24 U/L Normal 15-37 [facility] Comment on above: Performed By: #### P T, PTT #### [facility] [address] [place] [address] Dr. Shakira Bahena Bilirubin [Mass/Vol] 0.4 mg/dL Normal 0.2-1.0 [facility] Comment on above: Performed By: #### P T, PTT #### [facility] [address] [place] [address] Dr. Shakira Bahena Calcium [Mass/Vol] 8.6 mg/dL Normal 8.5-10.1 [facility] Comment on above: Performed By: #### P T, PTT #### [facility] [address] [place] [address] Dr. Shakira Bahena Chloride [Moles/Vol] 106 mmol/L Normal 98-107 [facility] Comment on above: Performed By: #### P T, PTT #### [facility] [address] [place] [address] Dr. Shakira Bahena CO2 [Moles/Vol] 26.3 mmol/L Normal 21.0-32.0 [facility] Comment on above: Performed By: #### P T, PTT #### [facility] [address] [place] [address] Dr. Shakira Bahena Creatinine [Mass/Vol] 0.60 mg/dL Normal 0.55-1.02 [facility] Comment on above: Performed By: #### P T, PTT #### [facility] [address] [place] [address] Dr. Shakira Bahena EGFR-AF GUATEMALAN >60 Normal >=60 [facility] Comment on above: Performed By: #### P T, PTT #### [facility] [address] [place] [address] Dr. Shakira Bahena EGFR-NON AF GUATEMALAN >60 Normal >=60 [facility] Comment on above: Performed By: #### P T, PTT #### [facility] [address] [place] [address] Dr. Shakira Bahena Globulin (S) [Mass/Vol] 3.2 g/dL Normal [facility] Comment on above: Performed By: #### P T, PTT #### [facility] [address] [place] [address] [address] Shakira Bahena Glucose [Mass/Vol] 105 mg/dL Normal 74-106 [facility] Comment on above: Performed By: #### P T, PTT #### [facility] [address] [place] [address] Dr. Shakira Bahena Potassium [Moles/Vol] 4.2 mmol/L Normal 3.5-5.1 [facility] Comment on above: Performed By: #### P T, PTT #### [facility] [address] [place] [address] Dr. Shakira Bahena Protein [Mass/Vol] 6.7 g/dL Normal 6.4-8.[address] [facility] Comment on above: Performed By: #### P T, PTT #### [facility] [address] [place] [address] Dr. Shakira Bahena Sodium [Moles/Vol] 138 mmol/L Normal 136-[address] [facility] Comment on above: Performed By: #### P T, PTT #### [facility] [address] [place] [address] Dr. Shakira Bahena Urea nitrogen [Mass/Vol] 11.0 mg/dL Normal 7.0-18.0 [facility] Comment on above: Performed By: #### P T, PTT #### [facility] [address] [place] [address] Dr. Shakira Bahena Urea nitrogen/Creatinine [Mass ratio] 18.3 mg/mg Normal [facility] Comment on above: Performed By: #### P T, PTT #### [facility] [address] [place] [address] Dr. Shakira Bahena PROTIMEon 09-09-2022 INR Coag (PPP) [Relative time] 0.93 {INR} Normal [facility] Comment on above: Performed By: #### P T, PTT #### [facility] [address] [place] [address] Dr. Shakira Bahena INR GUIDELINES SEE BELOW Normal [facility] Comment on above: Result Comment: SHANA RED INR: 2.0 - 3.0 CONDITIONS NOT LISTED BELOW 2.5 - 3.5 FOR PROSTHETIC HEART VALVE REPLACEMENT 2.5 - 3.5 RECURRENT THROMBOSIS Performed By: #### P T, PTT #### [facility] [address] [place] [address] Dr. Shakira Bahena PT Coag (PPP) [Time] 9.9 s Normal 9.0-11.6 [facility] Comment on above: Performed By: #### P T, PTT #### [facility] [address] [place] [address] Dr. Shakira Bahena PTTon 09-09-2022 aPTT Coag (Bld) [Time] 28.0 s Normal 22.3-36.2 [facility] Comment on above: Performed By: #### P T, PTT #### [facility] [address] [place] [address] Dr. Shakira Bahena URINE MICROSCOPIC ONLYon BACTERIA NONE SEEN Normal NONE SEEN [facility] Comment on above: Performed By: #### U MICRO, ERUR #### [facility] [address] [place] [address] Dr. Shakira Bahena Bacteria identified Cx Nom (U) NOT INDICATED Normal [facility] Comment on above: Performed By: #### U MICRO, ERUR #### [facility] [address] [place] [address] Dr. Shakira Bahena CAST NONE SEEN Normal NONE SEEN [facility] Comment on above: Performed By: #### U MICRO, ERUR #### [facility] [address] [place] [address] [address] Shakira Bahena Crystals LM Nom (Urine sed) NONE SEEN Normal NONE SEEN [facility] Comment on above: Performed By: #### U MICRO, ERUR #### [facility] [address] [place] [address] [address] Shakira Bahena Epithelial cells LM Ql (Urine sed) FEW Abnormal NONE SEEN /RARE [facility] Comment on above: Performed By: #### U MICRO, ERUR #### [facility] [address] [place] [address] [address] Shakira Bahena MUCOUS NONE SEEN Normal NONE SEEN [facility] Comment on above: Performed By: #### U MICRO, ERUR #### [facility] [address] [place] [address] Dr. Shakira Bahena RBC (U) [#/Vol] /uL Abnormal 0-2 [facility] Comment on above: Performed By: #### U MICRO, ERUR #### [facility] [address] [place] [address] Dr. Shakira Bahena WBC 2-5 Abnormal NONE SEEN [facility] Comment on above: Performed By: #### U MICRO, ERUR #### [facility] [address] [place] [address] Dr. Shakira Bahena MG MAMM SCREEN 3D ERLINDA CADon 08-31-2022 MG MAMM SCREEN 3D ERLINDA CAD Patient: ESMER BEACH Exam Date: 08/31/2022 : 1970 Gender:F Ordering : [facility] Admission #: [id number] Family : Order #: [id number] CLICK HERE TO VIEW EXAM RADIOLOGY REPORT [...] lung cancer at age 64. LOCATION: [facility] BREAST COMPOSITION: Scattered areas fibroglandular density. [...] on 08/31/2022 at 14:07 Approved by: Nahomy Buchanna MD on 08/31/2022 at 14:10 Normal [facility] CBC AUTO DIFFon 12-16-2021 BASO # 0.1 103/ul Normal 0.0-0.1 [facility] Comment on above: Performed By: #### C BC #### [facility] [address] [place] [address] Dr. Shakira Bahena Basophils/100 WBC (Bld) 0.6 % Normal 0.2-2.0 [facility] Comment on above: Performed By: #### C BC #### [facility] [address] [place] [address] Dr. Shakira Bahena EO # 0.3 103/ul Normal 0.0-0.7 [facility] Comment on above: Performed By: #### C BC #### [facility] [address] [place] [address] Dr. Shakira Bahena Eosinophils/100 WBC (Bld) 1.7 % Normal 0.9-7.0 [facility] Comment on above: Performed By: #### C BC #### [facility] [address] [place] [address] Dr. Shakira Bahena Erythrocyte distribution width (RBC) [Ratio] 15.6 % Critically high 11.0-15.0 [facility] Comment on above: Performed By: #### C BC #### [facility] [address] [place] [address] Dr. Shakira Bahena Hematocrit (Bld) [Volume fraction] 50.7 % Critically high 36.0-48.0 [facility] Comment on above: Performed By: #### C BC #### [facility] [address] [address] [address] Shakira Bahena Hemoglobin (Bld) [Mass/Vol] 16.0 g/dL Normal 12.0-16.0 [facility] Comment on above: Performed By: #### C BC #### [facility] [address] [address] [address] Shakira Bahena IG # 0.06 10e3/ul Critically high 0.00-0.03 [facility] Comment on above: Performed By: #### C BC #### [facility] [address] [place] [address] Dr. Shakira Bahena IG % 0.4 % Normal 0.0-0.5 [facility] Comment on above: Performed By: #### C BC #### [facility] [address] [place] [address] Dr. Shakira Bahena LYMPH # 3.7 103/ul Normal 1.2-3.8 [facility] Comment on above: Performed By: #### C BC #### [facility] [address] [place] [address] Dr. Shakira Bahena Lymphocytes/100 WBC (Bld) 23.9 % Normal 20.5-60.0 [facility] Comment on above: Performed By: #### C BC #### [facility] [address] [place] [address] Dr. Shakira Bahena MANUAL DIFF REQ NO Normal [facility] Comment on above: Performed By: #### C BC #### [facility] [address] [place] [address] Dr. Shakira Bahena MCH (RBC) [Entitic mass] 28.7 pg Normal 26.7-34.0 [facility] Comment on above: Performed By: #### C BC #### [facility] [address] [place] [address] Dr. Shakira Bahena MCHC (RBC) [Mass/Vol] 31.6 g/dL Normal 29.9-35.2 [facility] Comment on above: Performed By: #### C BC #### [facility] [address] [place] [address] Dr. Shakira Bahena MCV (RBC) [Entitic vol] 90.9 fL Normal 81.0-99.0 [facility] Comment on above: Performed By: #### C BC #### [facility] [address] [place] [address] Dr. Shakira Bahena MONO # 0.7 103/ul Normal 0.3-0.8 [facility] Comment on above: Performed By: #### C BC #### [facility] [address] [address] [address] Shakira Bahena Monocytes/100 WBC (Bld) 4.5 % Normal 1.7-12.0 [facility] Comment on above: Performed By: #### C BC #### [facility] [address] [place] [address] Dr. Shakira Bahena NEUT # 10.8 103/ul Critically high 1.4-6.5 [facility] Comment on above: Performed By: #### C BC #### [facility] [address] [place] [address] Dr. Shakira Bahena Neutrophils/100 WBC (Bld) 68.9 % Normal 43.0-75.0 [facility] Comment on above: Performed By: #### C BC #### [facility] [address] [place] [address] Dr. Shakira Bahena Platelet mean volume (Bld) [Entitic vol] 10.0 fL Normal 9.5-13.5 [facility] Comment on above: Performed By: #### C BC #### [facility] [address] [place] [address] Dr. Shakira Bahena PLT 309 103/ul Normal 150-450 [facility] Comment on above: Performed By: #### C BC #### [facility] [address] [place] [address] Dr. Shakira Bahena RBC 5.58 106/ul Critically high 4.20-5.40 [facility] Comment on above: Performed By: #### C BC #### [facility] [address] [place] [address] Dr. Shakira Bahena WBC 15.6 103/ul Critically high 4.0-11.0 [facility] Comment on above: Performed By: #### C BC #### [facility] [address] [address] [address] Shakira Bahena GLYCOHEMOGLOBIN A1Con 2021 ADA RECOMMENDATION SEE BELOW Normal [facility] Comment on above: Result Comment: ADA RECOMMENDED LIMIT 4.0 - 6.0 ADA THERAPEUTIC TARGET < 7.0 ACTION SUGGESTED > 7.0 Performed By: #### A 1C #### [facility] [address] [address] [address] Shakira Bahena Glucose [Mass/Vol] 120 mg/dL Normal [facility] Comment on above: Performed By: #### A 1C #### [facility] [address] [place] [address] Dr. Shakira Bahena HbA1c (Bld) [Mass fraction] 5.8 % Normal 4.5-6.2 [facility] Comment on above: Performed By: #### A 1C #### [facility] [address] [address] [address] Shakira Bahena LIPID PROFILEon 12-16-2021 CHOL-HDL RATIO NORM SEE BELOW Normal [facility] Comment on above: Result Comment: 3.3 - 4.4 LOW RISK 4.4 - 7.1 AVERAGE RISK 7.1 - 11.0 MODERATE RISK >11.0 HIGH RISK Performed By: #### P T, PTT #### [facility] [address] [address] [address] Shakira Bahena Cholesterol [Mass/Vol] 149 mg/dL Normal <=200 [facility] Comment on above: Performed By: #### P T, PTT #### [facility] [address] [address] [address] Shakira Bahena Cholesterol in HDL [Mass/Vol] 28 mg/dL Critically low 40-60 [facility] Comment on above: Performed By: #### P T, PTT #### [facility] [address] [address] [address] Shakira Bahena Cholesterol in LDL [Mass/Vol] 80.6 mg/dL Normal [facility] Comment on above: Performed By: #### P T, PTT #### [facility] [address] [address] [address] Shakira Bahena Cholesterol.total/Chol esterol in HDL [Mass ratio] 5.3 {ratio} Normal [facility] Comment on above: Performed By: #### P T, PTT #### [facility] [address] [address] [address] Shakira Bahena HDL NORMAL > or = 60 mg/dl - LO W CARDIOVASCULAR RISK <40 mg/dl - HIGH CARDIOVASCULAR RISK Normal [facility] Comment on above: Performed By: #### P T, PTT #### [facility] [address] [address] [address] Shakira Bahena LDL CALC NORMAL SEE BELOW Normal [facility] Comment on above: Result Comment: <100 mg/dl OPTIMAL 100 - 129 mg/dl NEAR OR ABOVE OPTIMAL 130 - 159 mg/dl BORDERLINE HIGH 160 - 189 mg/dl HIGH >190 mg/dl VERY HIGH Performed By: #### P T, PTT #### [facility] [address] [address] [address] Shakira Bahena Triglyceride [Mass/Vol] 202 mg/dL Critically high <=150 [facility] Comment on above: Performed By: #### P T, PTT #### [facility] [address] [address] [address] Shakira Bahena VLDL CALC 40.4 mg/dL Normal [facility] Comment on above: Performed By: #### P T, PTT #### [facility] [address] [address] [address] Shakira Bahena MICROALBUMIN, RAND URon 12-02 mALB <1.3 Normal <=30.0 [facility] Comment on above: Performed By: #### P T, PTT #### [facility] [address] [address] [address] Shakira Bahena PROF 14(COMP METB)on 022 Albumin [Mass/Vol] 3.5 g/dL Normal 3.4-5.0 [facility] Comment on above: Performed By: #### P T, PTT #### [facility] [address] [address] [address] Shakira Bahena Albumin/Globulin [Mass ratio] 1.0 {ratio} Normal [facility] Comment on above: Performed By: #### P T, PTT #### [facility] [address] [address] [address] Shakira Bahena ALP [Catalytic activity/Vol] 103 U/L Normal 46-116 [facility] Comment on above: Performed By: #### P T, PTT #### [facility] [address] [address] [address] Shakira Bahena ALT [Catalytic activity/Vol] 19 U/L Normal 14-59 [facility] Comment on above: Performed By: #### P T, PTT #### [facility] [address] [place] [address] Dr. Shakira Bahena Anion gap [Moles/Vol] 14.8 mmol/L Normal [facility] Comment on above: Performed By: #### P T, PTT #### [facility] [address] [place] [address] Dr. Shakira Bahena AST [Catalytic activity/Vol] 10 U/L Critically low 15-37 [facility] Comment on above: Performed By: #### P T, PTT #### [facility] [address] [place] [address] Dr. Shakira Bahena Bilirubin [Mass/Vol] 0.3 mg/dL Normal 0.2-1.0 [facility] Comment on above: Performed By: #### P T, PTT #### [facility] [address] [address] [address] Shakira Bahena Calcium [Mass/Vol] 8.6 mg/dL Normal 8.5-10.1 [facility] Comment on above: Performed By: #### P T, PTT #### [facility] [address] [address] [address] Shakira Bahena Chloride [Moles/Vol] 107 mmol/L Normal 98-107 [facility] Comment on above: Performed By: #### P T, PTT #### [facility] [address] [address] [address] Shakira Bahena CO2 [Moles/Vol] 23.1 mmol/L Normal 21.0-32.0 [facility] Comment on above: Performed By: #### P T, PTT #### [facility] [address] [address] [address] Shakira Bahena Creatinine [Mass/Vol] 0.79 mg/dL Normal 0.55-1.02 [facility] Comment on above: Performed By: #### P T, PTT #### [facility] [address] [address] [address] Shakira Bahena EGFR-AF GUATEMALAN >60 Normal >=60 [facility] Comment on above: Performed By: #### P T, PTT #### [facility] [address] [place] [address] Dr. Shakira Bahena EGFR-NON AF GUATEMALAN >60 Normal >=60 [facility] Comment on above: Performed By: #### P T, PTT #### [facility] [address] [place] [address] Dr. Shakira Bahena Globulin (S) [Mass/Vol] 3.4 g/dL Normal [facility] Comment on above: Performed By: #### P T, PTT #### [facility] [address] [place] [address] Dr. Shakira Bahena Glucose [Mass/Vol] 157 mg/dL Critically high 74-106 [facility] Comment on above: Performed By: #### P T, PTT #### [facility] [address] [place] [address] Dr. Shakira Bahena Potassium [Moles/Vol] 3.9 mmol/L Normal 3.5-5.1 [facility] Comment on above: Performed By: #### P T, PTT #### [facility] [address] [place] [address] Dr. Shakira Bahena Protein [Mass/Vol] 6.9 g/dL Normal 6.4-8.[address] [facility] Comment on above: Performed By: #### P T, PTT #### [facility] [address] [place] [address] Dr. Shakira Bahena Sodium [Moles/Vol] 141 mmol/L Normal 136-145 [facility] Comment on above: Performed By: #### P T, PTT #### [facility] [address] [place] [address] Dr. Shakira Bahena Urea nitrogen [Mass/Vol] 13.0 mg/dL Normal 7.0-18.0 [facility] Comment on above: Performed By: #### P T, PTT #### [facility] [address] [place] [address] Dr. Shakira Bahena Urea nitrogen/Creatinine [Mass ratio] 16.5 mg/mg Normal [facility] Comment on above: Performed By: #### P T, PTT #### [facility] [address] [place] [address] Dr. Shakira Bahena UA RANDOM W/MICROSCOPICon BACTERIA NONE SEEN Normal NONE SEEN [facility] Comment on above: Performed By: #### P T, PTT #### [facility] [address] [place] [address] Dr. Shakira Bahena Bilirubin Ql (U) Negative Normal NEGATIVE [facility] Comment on above: Performed By: #### P T, PTT #### [facility] [address] [place] [address] Dr. Shakira Bahena CAST NONE SEEN Normal NONE [facility] Comment on above: Performed By: #### P T, PTT #### [facility] [address] [place] [address] Dr. Shakira Bahena Clarity (U) CLEAR Normal CLEAR [facility] Comment on above: Performed By: #### P T, PTT #### [facility] [address] [place] [address] Dr. Shakira Bahena Color (U) LT. YELLOW Normal YELLOW [facility] Comment on above: Performed By: #### P T, PTT #### [facility] [address] [place] [address] Dr. Shakira Bahena Crystals LM Nom (Urine sed) NONE SEEN Normal NONE SEEN [facility] Comment on above: Performed By: #### P T, PTT #### [facility] [address] [address] [address] Shakira Bahena Epithelial cells LM Ql (Urine sed) RARE Normal NONE SEEN /RARE [facility] Comment on above: Performed By: #### P T, PTT #### [facility] [address] [place] [address] Dr. Shakira Bahena Glucose Ql (U) 100 mg/dl Abnormal NEGATIVE [facility] Comment on above: Performed By: #### P T, PTT #### [facility] [address] [place] [address] Dr. Shakira Bahena Hemoglobin Ql (U) Negative Normal NEGATIVE [facility] Comment on above: Performed By: #### P T, PTT #### [facility] [address] [place] [address] Dr. Shakira Bahena Ketones Ql (U) Negative Normal NEGATIVE [facility] Comment on above: Performed By: #### P T, PTT #### [facility] [address] [place] [address] Dr. Shakira Bahena LEUKOCYTES Negative Normal NEGATIVE [facility] Comment on above: Performed By: #### P T, PTT #### [facility] [address] [place] [address] Dr. Shakira Bahena MUCOUS NONE SEEN Normal NONE SEEN [facility] Comment on above: Performed By: #### P T, PTT #### [facility] [address] [place] [address] Dr. Shakira Bahena Nitrite Ql (U) Negative Normal NEGATIVE [facility] Comment on above: Performed By: #### P T, PTT #### [facility] [address] [address] [address] Shakira Bahena pH (U) 6.0 [pH] Normal 5-9 [facility] Comment on above: Performed By: #### P T, PTT #### [facility] [address] [place] [address] Dr. Shakira Bahena RBC 0-2 Normal 0-2 [facility] Comment on above: Performed By: #### P T, PTT #### [facility] [address] [place] [address] Dr. Shakira Bahena SPEC GRAVITY 1.010 Normal 1.005-<=1.02 5 [facility] Comment on above: Performed By: #### P T, PTT #### [facility] [address] [place] [address] Dr. Shakira Bahena UA PROTEIN Negative Normal NEGATIVE/ TRACE [facility] Comment on above: Performed By: #### P T, PTT #### [facility] [address] [place] [address] Dr. Shakira Bahena Urobilinogen Qn (U) 0.2 {Navin'U}/dL Normal 0.2 - 1. 0 [facility] Comment on above: Performed By: #### P T, PTT #### [facility] [address] [place] [address] Dr. Shakira Bahena WBC NONE SEEN Normal NONE SEEN [facility] Comment on above: Performed By: #### P T, PTT #### [facility] [address] [place] [address] Dr. Shakira Bahena LUMBAR SPINE 4 OR 5 [facility] LUMBAR SPINE 4 OR 5 [facility] Department of Radiology [address] [place] [id number] ======== Patient Name: ESMER BEACH : 1970 Sex: F Age: Race: White Pt. Location: Patient Status: D Ordered Date: 01/18/2020 1:45:00 PM Completed Date: 01/18/2020 02:04 PM Requesting Provider: RICARDO JOSEPH Attending Provider: RICARDO JOSEPH Report Copy To: Signs & Symptoms: M48.061 Spinal stenosis, lumbar region without neurogenic ignacio I10 History: Ozan Comments: Views (X-RAY, LUMBAR SPINE): AP, Lateral, L5-S1 Spot, Flexion, Extension , Weight Bearing?: Y Exam: LUMBAR SPINE 4 OR 5 S ======== Addendum Begins Addendum: Lumbar spine AP, [...] subluxation Electronically signed: Alma Lopez. Transcribed by: [email or web address], User Resident: Electronically Signed by: HUI MEAD @ 01/30/2020 11:27 AM Normal [facility] Comment on above: Order Comment: Views (X-RAY, LUMBAR SPINE): AP, Lateral, L5-S1 Spot, Flexion, Extension , Weight Bearing?: Y Remote CBCDIF (for [facility] use o nly)on 01-03-2019 Abs Baso 0.05 k/uL Normal 0.00-0.10 [facility] Abs Grainger 0.90 k/uL High 0.00-0.86 [facility] Abs Neut 12.73 k/uL High 1.45-7.50 [facility] Basophils/100 WBC (Bld) 0.3 % Normal [facility] Eosinophils (Bld) [#/Vol] 0.27 10*3/uL Normal 0.00-0.45 [facility] Eosinophils/100 WBC (Bld) 1.5 % Normal [facility] Erythrocyte distribution width (RBC) [Ratio] 15.0 % Normal 11.5-15.0 [facility] Hematocrit (Bld) [Volume fraction] 46.9 % High 36.0-46.0 [facility] Hemoglobin (Bld) [Mass/Vol] 16.1 g/dL High 11.5-15.5 [facility] Lymphocytes (Bld) [#/Vol] 3.51 10*3/uL Normal 1.00-4.00 [facility] Lymphocytes/100 WBC (Bld) 20.1 % Normal [facility] MCH (RBC) [Entitic mass] 30.0 pG Normal 26.0-34.0 [facility] MCHC (RBC) [Mass/Vol] 34.3 g/dL Normal 30.5-36.0 [facility] MCV (RBC) [Entitic vol] 87.3 fL Normal 80.0-100.0 [facility] Monocytes/100 WBC (Bld) 5.2 % Normal [facility] Neutrophils/100 WBC (Bld) 72.9 % Normal [facility] Platelet mean volume (Bld) [Entitic vol] 9.4 fL Normal 9.0-12.7 [facility] Platelets (Bld) [#/Vol] 308 10*3/uL Normal 150-400 [facility] RBC (Bld) [#/Vol] 5.37 10*6/uL High 3.90-5.20 [facility] WBC (Bld) [#/Vol] 17.46 10*3/uL High 3.70-11.00 [facility] CNOVSPon 07-13-2018 CNOVSP Visit (SP) Office (HEMACL) ESMER BEACH ([id number]) 1970 F Date Time Provider Department 07/13/18 [...] Vanessa Espinosa MD Referring Provider: LACY ALBERTO ([facility]) [[id number]] Allergies As of Date: 07/13/2018 Noted Allergy [...] (FOR REMOTE [facility] USE) [SQRCBCDF] Order #: [id number] STANDING Follow-up and Disposition History Recorded Prescriptions [...] [D72.829] INVALID FOR* Coronary artery disease involving [place] heart *INVALID FOR* Diabetes mellitus (HCC) [E11.9] INVALID FOR* Psychiatric disorder [F99] INVALID FOR* Encounter Status:Closed by VANESSA ESPINOSA MD on 07/13/18 Normal [facility] PROGRESSon 07-13-2018 PROGRESS HNO ID: [id number] Author: Vanessa Espinosa Service: (none) Author Type: [...] CBC + DIFF (FOR REMOTE [facility] USE) Vanessa Espinosa MD Normal [facility] Remote CBCDIF (for [facility] use o nly)on 07-13-2018 Abs Baso 0.04 k/uL Normal 0.00-0.10 [facility] Abs Grainger 0.82 k/uL Normal 0.00-0.86 [facility] Abs Neut 14.68 k/uL High 1.45-7.50 [facility] Basophils/100 WBC (Bld) 0.2 % Normal [facility] Eosinophils (Bld) [#/Vol] 0.15 10*3/uL Normal 0.00-0.45 [facility] Eosinophils/100 WBC (Bld) 0.8 % Normal [facility] Erythrocyte distribution width (RBC) [Ratio] 14.5 % Normal 11.5-15.0 [facility] Hematocrit (Bld) [Volume fraction] 47.2 % High 36.0-46.0 [facility] Hemoglobin (Bld) [Mass/Vol] 15.8 g/dL High 11.5-15.5 [facility] Lymphocytes (Bld) [#/Vol] 3.48 10*3/uL Normal 1.00-4.00 [facility] Lymphocytes/100 WBC (Bld) 18.2 % Normal [facility] MCH (RBC) [Entitic mass] 29.4 pG Normal 26.0-34.0 [facility] MCHC (RBC) [Mass/Vol] 33.5 g/dL Normal 30.5-36.0 [facility] MCV (RBC) [Entitic vol] 87.9 fL Normal 80.0-100.0 [facility] Monocytes/100 WBC (Bld) 4.3 % Normal [facility] Neutrophils/100 WBC (Bld) 76.5 % Normal [facility] Platelet mean volume (Bld) [Entitic vol] 9.3 fL Normal 9.0-12.7 [facility] Platelets (Bld) [#/Vol] 274 10*3/uL Normal 150-400 [facility] RBC (Bld) [#/Vol] 5.37 10*6/uL High 3.90-5.20 [facility] WBC (Bld) [#/Vol] 19.17 10*3/uL High 3.70-11.00 [facility] BCR-ABL Qualitativeon 2017 BCR-ABL Qualitative (NOTE) Normal [facility] Comment on above: Result Comment: Balta henry refer to [facility] Surgical Pathology report, Performed By: #### C ALR, BCRQL #### [facility] [address] [address] Basic Metabolic Panlon 06-15 Anion gap [Moles/Vol] 12 mmol/L Normal 9-18 [facility] Comment on above: Performed By: #### Rosemarie AKMaria Victoria, YONI, HFP, WSR #### [facility] [address] [address] Calcium [Mass/Vol] 9.4 mg/dL Normal 8.5-10.2 [facility] Comment on above: Performed By: #### Rosemarie AKMaria Victoria, YONI, HFP, WSR #### [facility] [address] [place], [place] [address] Chloride [Moles/Vol] 108 mmol/L High 97-105 [facility] Comment on above: Performed By: #### Rosemarie AKMaria Victoria, YONI, HFP, WSR #### [facility] [address] [place], [place] [address] CO2 [Moles/Vol] 21 mmol/L Low 22-30 [facility] Comment on above: Performed By: #### Rosemarie AK2, BMP, HFP, WSR #### [facility] [address] [place], [place] [address] Creatinine [Mass/Vol] 0.65 mg/dL Normal 0.58-0.96 [facility] Comment on above: Performed By: #### J ELIZABETH, YONI, [facility], WSR #### [facility] [address] [place], [place] [address] eGFR- Amer. >60 Normal [facility] Comment on above: Performed By: #### J ELIZABETH, YONI, [facility], WSR #### [facility] [address] [place] [address] GFR/1.73 sq M predicted among non-blacks MDRD (S/P/Bld) [Vol rate/Area] mL/min/{1.73_m2} Normal [facility] Comment on above: Result Comment: eGFR [...] accurately reflect actual GFR. Performed By: #### J ELIZABETH, YONI, [facility], WSR #### [facility] [address] [place], [place] [address] Glucose [Mass/Vol] 187 mg/dL High 74-99 [facility] Comment on above: Result Comment: The [place] [employer] (ADA) provides guidance for cutoff [...] Standards of Medical Care in Diabetes 2016, [place] [employer]. Diabetes Care. 2016.39(Suppl 1). Performed By: #### Rosemarie AK2, YONI, HFP, WSR #### [facility] [address] [place], [place] [address] Potassium [Moles/Vol] 4.7 mmol/L Normal 3.7-5.1 [facility] Comment on above: Performed By: #### Rosemarie AK2, YONI, HFP, WSR #### [facility] [address] [place], [place] [address] Sodium [Moles/Vol] 141 mmol/L Normal 136-144 [facility] Comment on above: Performed By: #### Rosemarie AKMaria Victoria, YONI, HFP, WSR #### [facility] [address] [place], [place] [address] Urea nitrogen [Mass/Vol] 14 mg/dL Normal 7-21 [facility] Comment on above: Performed By: #### Rosemarie AKMaria Victoria, YONI, HFP, WSR #### [facility] [address] [place], [place] [address] CALR Exon 9 Mutationon 06-15 CALR Result/Interp Duplicate request Normal [facility] Comment on above: Result Comment: Acco unt Credited SEE RESULT FOR MPNP. [id number] Performed By: #### Elma ALArlene, BCRQL #### [facility] [address] [place], [place] [address] CALR Reviewed by Duplicate request Normal [facility] Comment on above: Result Comment: Acco unt Credited SEE RESULT FOR MPNP. DM2017 Performed By: #### Elma ALR, BCRQL #### [facility] [address] [place], [place] [address] CALR Specimen Type Duplicate request Normal [facility] Comment on above: Result Comment: Acco unt Credited SEE RESULT FOR MPNP. DMCKNIGHT 06 16 2018 Performed By: #### C LIAM, BCRQL #### [facility] [address] [place], [place] [address] CNOVSPon 06-15-2018 CNOVSP Visit (SP) Office (HEMACL) [place] ([id number]) 1970 F Date Time Provider Department 06/15/18 11:15 AM VANESSA ESPINOSA HEMACL During your visit today, we recorded the following information about you: Temperature Pulse Respiration Blood pressure 98.3 degrees 76/minute 16/minute 123/65 Weight Height 90.4 kg 1.61 m Vanessa Espinosa MD 06/15/2018 11:39 AM Signed HPI [place] is a [...] CT + CBC (FOR REMOTE [facility] USE) - BASIC METABOLIC PNL - HEPATIC FUNCTION PNL - SED RATE WESTERGREN - BCR-ABL QUALITATIVE MULTIPLEX RT-PCR - JAK2 V617F MUTATION BLOOD - MPL MUTATION ANALYSIS BLOOD - CALR EXON 9 MUTATION ANALYSIS BLOOD 2. 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, unspecified vessel or lesion type (HCC) [I25.118] Other specified diabetes mellitus without complication, with long-term current use of insulin (HCC) [E13.9, Z79.4] Psychiatric disorder [F99] Order(s):ABS GRAN CT + CBC (FOR REMOTE [facility] USE) [SQRAGCBC] Order #: [id number] FUTURE BASIC METABOLIC PNL [SQBMP] Order #: [id number] FUTURE HEPATIC FUNCTION PNL [SQHFP] Order #: [id number] FUTURE SED RATE WESTERGREN [SQWSR] Order #: [id number] FUTURE BCR-ABL QUALITATIVE MULTIPLEX RT-PCR [SQBCRQL] Order #: [id number] FUTURE JAK2 V617F MUTATION BLOOD [SQJAK2] Order #: [id number] FUTURE MPL MUTATION ANALYSIS BLOOD [SQMPL] Order #: [id number] FUTURE CALR EXON 9 MUTATION ANALYSIS BLOOD [SQCALR] Order #: [id number] FUTURE Disposition: Return in about 4 weeks [...] [D72.829] INVALID FOR* Coronary artery disease involving kaltag heart *INVALID FOR* Diabetes mellitus (HCC) [E11.9] INVALID FOR* Psychiatric disorder [F99] INVALID FOR* Encounter Status:Closed by VANESSA ESPINOSA MD on 06/15/18 Normal [facility] Hepatic Functn Panelon 06-15 Albumin [Mass/Vol] 4.2 g/dL Normal 3.9-4.9 [facility] Comment on above: Performed By: #### YONI RUIZ, MEDARDO, WSR #### [facility] [address] [place], [place] [address] ALP [Catalytic activity/Vol] 99 U/L Normal 34-123 [facility] Comment on above: Performed By: #### YONI RUIZ, MEDARDO, WSR #### [facility] [address] [place], [place] [id number] ALT [Catalytic activity/Vol] 18 U/L Normal 7-38 [facility] Comment on above: Performed By: #### YONI RUIZ, MEDARDO, WSR #### [facility] [address] [place], [place] [address] AST [Catalytic activity/Vol] 19 U/L Normal 13-35 [facility] Comment on above: Performed By: #### J AK2, BMP, HFP, WSR #### [facility] [address] [place] [address] Bilirubin [Mass/Vol] mg/dL Low 0.2-1.3 [facility] Comment on above: Performed By: #### Rosemarie AK2, BMP, HFP, WSR #### [facility] [address] [place] [phone] Bilirubin,Conjugated <0.2 Normal <0.2 [facility] Comment on above: Performed By: #### Rosemarie AK2, BMP, HFP, WSR #### [place] [address] [place] [phone] Protein [Mass/Vol] 7.1 g/dL Normal 6.3-8.0 [facility] Comment on above: Performed By: #### Rosemarie AK2, BMP, HFP, WSR #### [place] [address] [place] [phone] JAK2 V617F Mutationon 2017 JAK2 V617F Interp Duplicate request Normal [facility] Comment on above: Result Comment: Acco unt Credited SEE RESULT FOR MPNP. 2017 Performed By: #### Rosemarie AK2, BMP, HFP, WSR #### [place] [address] [place] [phone] JAK2 V617F Spec Type Duplicate request Normal [facility] Comment on above: Result Comment: Acco unt Credited SEE RESULT FOR MPNP. 2017 Performed By: #### Rosemarie AK2, BMP, HFP, WSR #### [facility] [address] [place] [address] Molecular Path Rev Duplicate request Normal [facility] Comment on above: Result Comment: Acco unt Credited SEE RESULT FOR MPNP. 2017 Performed By: #### Rosemarie AK2, BMP, HFP, WSR #### [facility] [address] [place] [phone] MPL Mutationon 06-15-2018 MPL Mutation Interp Duplicate request Normal [facility] Comment on above: Result Comment: Acco unt Credited SEE RESULT FOR MPNP. DMCKNIGHT 06 16 2018 Performed By: #### M PL #### [facility] [address] [place], [place] [address] Myeloprolif Neopl Pnl Bloodo n 06-15-2018 Myelo Neopl Pnl Bld (NOTE) Normal [facility] Comment on above: Result Comment: Plea se refer to [facility] Surgical Pathology report, . Performed By: #### M PNP ####[facility] [address] [place], [place] [phone] PROGRESSon 06-15-2018 PROGRESS HNO ID: [id number] Author: Vanessa Espinosa Service: (none) Author Type: [...] ANALYSIS BLOOD 2. 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, [...] F99 See above Vanessa Espinosa MD Normal [facility] Remote Abs Gran + CBC (for F [facility] use only)on 06-15-2018 Absol Gran Count 12.48 k/uL High 1.45-7.50 [facility] Erythrocyte distribution width (RBC) [Ratio] 14.7 % Normal 11.5-15.0 [facility] Hematocrit (Bld) [Volume fraction] 46.8 % High 36.0-46.0 [facility] Hemoglobin (Bld) [Mass/Vol] 15.4 g/dL Normal 11.5-15.5 [facility] MCH (RBC) [Entitic mass] 29.2 pG Normal 26.0-34.0 [facility] MCHC (RBC) [Mass/Vol] 32.9 g/dL Normal 30.5-36.0 [facility] MCV (RBC) [Entitic vol] 88.8 fL Normal 80.0-100.0 [facility] Platelet mean volume (Bld) [Entitic vol] 9.1 fL Normal 9.0-12.7 [facility] Platelets (Bld) [#/Vol] 279 10*3/uL Normal 150-400 [facility] RBC (Bld) [#/Vol] 5.27 10*6/uL High 3.90-5.20 [facility] WBC (Bld) [#/Vol] 17.10 10*3/uL High 3.70-11.00 [facility] SURGICAL PATHOLOGYon 018 SURGICAL PATHOLOGY PROCEDURE REPORT Specimen originated from [facility] Specimen #: [id number] Submitting Physician: VANESSA ESPINOSA MD SPECIMEN SUBMITTED [...] this sample, and cDNA prepared by reverse gas meter mechanic. Multiplex RT-PCR studies were performed using fluorescently [...] developed and its performance characteristics determined by [facility]'s [facility] [place] ([facility]). It has not been cleared or approved by the FDA. [employer]-PLL[employer] is regulated under CLIA as qualified to perform high-complexity testing. This test is used for clinical purposes. It should not be regarded as investigational or for research. As Reviewed by: Nahomy Galarza M.D. DSB/ 06/20/2018 Procedure Pathologist: Nahomy Galarza M.D. Electronic [...] sequencing was performed on the Illumina instrument ([place], [place]). A customized bioinformatic pipeline was used to align the sequencing reads to the reference human genome (GRCh37/hg19). Benign common polymorphisms are not reported. Limitations: Sequence changes outside the analyzed regions, including intronic, noncoding, and splice-site variants, will not be identified by this test. The lower limit of detection of this assay is approximately 1% allele proportion for the JAK2 [id number] single nucleotide variant and approximately 5% allele [...] developed and its performance characteristics determined by [facility]'s [facility] [place] ([facility]). It has not been cleared or approved by the FDA. -[facility] is regulated under CLIA as qualified to perform high-complexity testing. This test is used for clinical purposes. It should not be regarded as investigational or for research. As Reviewed by: Nahomy Galarza M.D. [facility]/ms 06/22/18 References: Mark DA, Lux A, Raúl [...] VANESSA ESPINOSA MD Location: [facility] Diagnostic interpretation performed at [facility], [address] [facility] [address]. Normal [facility] Sed Rate Westergrenon 2017 Sed Rate Westergren 2 mm/hr Normal 0-20 [facility] Comment on above: Performed By: #### J AK2, BMP, HFP, WSR #### [facility] [address] [place] [id number] Vital Signs Date Time Vital Sign Value Performing Clinician Facility 10-18-2024 10:09-0400 Body height 160 cm Alicia Henry MD Work Phone: [facility] 10-18-2024 10:09-0400 Body mass index (BMI) [Ratio] 33.98 kg/m2 Alicia Henry MD Work Phone: [facility] 10-18-2024 10:09-0400 Body weight 87 kg Alicia Henry MD Work Phone: [facility] 10-18-2024 10:09-0400 Diastolic blood pressure 78 mm[Hg] Alicia Henry MD Work Phone: [facility] 10-18-2024 10:09-0400 Heart rate 100 /min Alicia Henry MD Work Phone: [facility] 10-18-2024 10:09-0400 SaO2% (BldA) [Mass fraction] 94 % Alicia Henry MD Work Phone: [facility] 10-18-2024 10:09-0400 Systolic blood pressure 124 mm[Hg] Alicia Henry MD Work Phone: [facility] 10-08-2024 13:06-0400 Body mass index (BMI) [Ratio] 33.83 kg/m2 Lacy Alberto NP Work Phone: [facility] 10-08-2024 13:06-0400 Body temperature 98.1 [degF] Lacy Juniorhholz HISTOTECHNOLOGIST SUPERVISOR Work Phone: [facility] 10-08-2024 13:06-0400 Body weight 86.64 kg Lacy Aichholz HISTOTECHNOLOGIST SUPERVISOR Work Phone: [facility] 10-08-2024 13:06-0400 Diastolic blood pressure 78 mm[Hg] Lacy Aichholz HISTOTECHNOLOGIST SUPERVISOR Work Phone: [facility] 10-08-2024 13:06-0400 Heart rate 89 /min Lacy Aichholz HISTOTECHNOLOGIST SUPERVISOR Work Phone: [facility] 10-08-2024 13:06-0400 Respiratory rate 20 /min Lacy Aichholz HISTOTECHNOLOGIST SUPERVISOR Work Phone: [facility] 10-08-2024 13:06-0400 SaO2% (BldA) [Mass fraction] 95 % Lacy Aichholz HISTOTECHNOLOGIST SUPERVISOR Work Phone: [facility] 10-08-2024 13:06-0400 Systolic blood pressure 118 mm[Hg] Lacy Aichholz HISTOTECHNOLOGIST SUPERVISOR Work Phone: [facility] 08-06-2024 15:11-0500 Body height 160 cm Lacy Aichholz HISTOTECHNOLOGIST SUPERVISOR Work Phone: [facility] 08-06-2024 15:11-0500 Body mass index (BMI) [Ratio] 33.44 kg/m2 Lacy Aichholz HISTOTECHNOLOGIST SUPERVISOR Work Phone: [facility] 08-06-2024 15:11-0500 Body temperature 97.59 [degF] Lacy Aichholz HISTOTECHNOLOGIST SUPERVISOR Work Phone: [facility] 08-06-2024 15:11-0500 Body weight 85.64 kg Lacy Aichholz HISTOTECHNOLOGIST SUPERVISOR Work Phone: [facility] 08-06-2024 15:11-0500 Diastolic blood pressure 86 mm[Hg] Lacy Aichholz HISTOTECHNOLOGIST SUPERVISOR Work Phone: [facility] 08-06-2024 15:11-0500 Heart rate 107 /min Lacy Juniorcalebholz HISTOTECHNOLOGIST SUPERVISOR Work Phone: [facility] 08-06-2024 15:11-0500 Respiratory rate 20 /min Lacy Aichholz HISTOTECHNOLOGIST SUPERVISOR Work Phone: [facility] 08-06-2024 15:11-0500 SaO2% (BldA) [Mass fraction] 96 % Lacy Juniorhholz HISTOTECHNOLOGIST SUPERVISOR Work Phone: [facility] 08-06-2024 15:11-0500 Systolic blood pressure 142 mm[Hg] Lacy Aichholz HISTOTECHNOLOGIST SUPERVISOR Work Phone: [facility] 05-22-2024 09:00-0500 Body height 160 cm Lacy Aichholz HISTOTECHNOLOGIST SUPERVISOR Work Phone: [facility] 05-22-2024 09:00-0500 Body mass index (BMI) [Ratio] 34.33 kg/m2 Lacy Juniorhholz HISTOTECHNOLOGIST SUPERVISOR Work Phone: [facility] 05-22-2024 09:00-0500 Body temperature 98.49 [degF] Lacy Juniorhholz HISTOTECHNOLOGIST SUPERVISOR Work Phone: [facility] 05-22-2024 09:00-0500 Body weight 87.91 kg Lacy Juniorhholz HISTOTECHNOLOGIST SUPERVISOR Work Phone: [facility] 05-22-2024 09:00-0500 Diastolic blood pressure 78 mm[Hg] Lacy Aichholz HISTOTECHNOLOGIST SUPERVISOR Work Phone: [facility] 05-22-2024 09:00-0500 Heart rate 70 /min Lacy Aichholz HISTOTECHNOLOGIST SUPERVISOR Work Phone: [facility] 05-22-2024 09:00-0500 Respiratory rate 19 /min Lacy Aichholz HISTOTECHNOLOGIST SUPERVISOR Work Phone: [facility] 05-22-2024 09:00-0500 SaO2% (BldA) [Mass fraction] 97 % Lacy Aichholz HISTOTECHNOLOGIST SUPERVISOR Work Phone: [facility] 11-19-2024 09:00-0500 Systolic blood pressure 110 mm[Hg] Lacy Alberto HISTOTECHNOLOGIST SUPERVISOR Work Phone: [facility] Encounters Encounter Date Encounter Type Care Provider Facility Start: 10-18-2024 End: 10-18-2024 Office outpatient new 45 minutes Alicia Henry MD Work Phone: [facility] Comment on above: Pre-op testing (Prim maria ines Dx); Coronary artery disease involving kaltag coronary artery of kaltag heart without angina pectoris; Dyspnea, unspecified type Start: 10-18-2024 End: 10-18-2024 Patient encounter status Alicia Henry MD Work Phone: [facility] [email or web address] [facility] Start: 10-17-2024 End: 10-17-2024 Telephone encounter Dee Yu [facility] Start: 10-08-2024 End: 10-08-2024 Bamboo flowsheet Lacy Alberto HISTOTECHNOLOGIST SUPERVISOR Work Phone: [facility] Start: 10-08-2024 End: 10-08-2024 Bamboo flowsheet Lacy Remy HISTOTECHNOLOGIST SUPERVISOR Work Phone: [facility] Start: 10-08-2024 End: 10-08-2024 ambulatory LACY REMY Not Available Start: 10-08-2024 End: 10-08-2024 Office outpatient visit 25 minutes Lacy Alberto HISTOTECHNOLOGIST SUPERVISOR Work Phone: [facility] Comment on above: Anxiety and depressi on (CMS/HCC) (Primary Dx); Cigarette nicotine dependence without complication; Type 2 diabetes mellitus without complication, without long-term current use of insulin; Encounter for screening mammogram for malignant neoplasm of breast; DDD (degenerative disc disease), cervical; Spondylosis of 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; Bipolar disorder, current episode mixed, mild (CMS/HCC); Colon cancer screening Start: 10-05-2024 End: 10-05-2024 Clinisync Result Encounter Generic External Data Provider [facility] Department Unsolicited Start: 10-05-2024 End: 10-05-2024 Clinisync Result Encounter Generic External Data Provider [facility] External Department Unsolicited Start: 09-24-2024 End: 09-24-2024 ambulatory [facility] Start: 09-10-2024 End: 09-10-2024 ambulatory Fred Pryor MD Facility: [facility] Start: 08-28-2024 End: 08-28-2024 Refill Lacy Alberto HISTOTECHNOLOGIST SUPERVISOR Work Phone: [facility] Comment on above: URI, acute (Primary Dx) Start: 08-27-2024 End: 08-27-2024 ambulatory Fred Pryor MD Facility: [place] Start: 08-10-2024 End: 08-10-2024 Clinisync Result Encounter Generic External Data Provider [facility] Unsolicited Start: 08-10-2024 End: 08-10-2024 Clinisync Result Encounter Generic External Data Provider [facility] Unsolicited Start: 08-06-2024 End: 08-06-2024 Office outpatient visit 25 minutes Lacy Alberto HISTOTECHNOLOGIST SUPERVISOR Work Phone: [facility] Comment on above: Type 2 diabetes josselin itus without complication, without long- term current use of insulin (CMS/[facility]) (Primary Dx); Bipolar disorder, current episode mixed, [...] Start: 08-06-2024 End: 08-06-2024 Bamboo flowsheet Lacy Alberto HISTOTECHNOLOGIST SUPERVISOR Work Phone: [facility] Start: 08-06-2024 End: 08-06-2024 Bamboo flowsheet Lacy Alberto HISTOTECHNOLOGIST SUPERVISOR Work Phone: [facility] Start: 07-30-2024 End: 07-30-2024 ambulatory Fred Pryor MD Facility:[facility] Start: 07-23-2024 End: 07-23-2024 Orders Only Lacy Alberto HISTOTECHNOLOGIST SUPERVISOR Work Phone: [facility] Comment on above: 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 (Primary Dx) Start: 06-25-2024 End: 06-25-2024 Telephone encounter Lacy Alberto HISTOTECHNOLOGIST SUPERVISOR Work Phone: [facility] Start: 05-28-2024 End: 05-28-2024 Refill Lacynatanael Alberto HISTOTECHNOLOGIST SUPERVISOR Work Phone: [facility] Comment on above: Type 2 diabetes josselin itus without complication, without long- term current use of insulin (CMS/HCC) (Primary Dx) Start: 05-22-2024 End: 05-22-2024 Bamboo flowsheet Lacy Alberto HISTOTECHNOLOGIST SUPERVISOR Work Phone: [facility] Start: 05-22-2024 End: 05-22-2024 Bamboo flowsheet Lacy Alberto HISTOTECHNOLOGIST SUPERVISOR Work Phone: [facility] Start: 05-22-2024 End: 05-22-2024 Patient encounter procedure Lacy Alberto HISTOTECHNOLOGIST SUPERVISOR Work Phone: [facility] Comment on above: Encounter for subseq [...] Start: 04-30-2024 End: 05-01-2024 Refill Lacy Aichholz HISTOTECHNOLOGIST SUPERVISOR Work Phone: [facility] Comment on above: Type 2 diabetes josselin itus without complication, without long- term current use of insulin ([facility]) Start: 04-05-2024 End: 04-05-2024 Refill Lacy Aichholz HISTOTECHNOLOGIST SUPERVISOR Work Phone: [facility] Comment on above: Type 2 diabetes josselin itus without complication, without long- term current use of insulin ([facility]) Start: 03-23-2024 End: 03-23-2024 Clinisync Result Encounter Lacy Aichholz HISTOTECHNOLOGIST SUPERVISOR Work Phone: [facility] External Department Unsolicited Start: 03-23-2024 End: 03-23-2024 Clinisync Result Encounter Lacy Aichholz HISTOTECHNOLOGIST SUPERVISOR Work Phone: [facility] External Department Unsolicited Start: 03-23-2024 End: 03-23-2024 Refill Lacy Aichholz HISTOTECHNOLOGIST SUPERVISOR Work Phone: [facility] Comment on above: Type 2 diabetes josselin itus without complication, without long- term current use of insulin ([facility]) (Primary Dx) Start: 02-27-2024 End: 02-27-2024 Telephone encounter Lacy Aichholz HISTOTECHNOLOGIST SUPERVISOR Work Phone: [facility] Start: 11-17-2023 End: 11-17-2023 ambulatory LACY AICHHOLZ Not Available Start: 09-09-2022 End: 09-10-2022 ambulatory ROTOPRINTER LACY AICHHOLZ Facility:[facility] Start: 08-31-2022 End: 09-01-2022 ambulatory ROTOPRINTER LACY AICHHOLZ Facility:[facility] Start: 06-07-2022 End: 06-08-2022 ambulatory ROTOPRINTER LACY AICHHOLZ Facility:[facility] Start: 12-16-2021 End: 12-17-2021 ambulatory ROTOPRINTER LACY AICHHOLZ Facility:[facility] Procedures Date Procedure Procedure Detail Performing Clinician Start: 10-18-2024 Ecg routine ecg w/le ast 12 lds w/i&r Alicia Henry MD Work Phone: Start: 10-08-2024 Mammography Lacy means HISTOTECHNOLOGIST SUPERVISOR Work Phone: Start: 10-05-2024 XR CERVICAL SPINE 5V Ge neric External Data Provider Start: 10-05-2024 XR LUMBAR SPINE MIN 4V Generic External Data Provider Start: 08-10-2024 Mri spinal canal cervical w/o contrast matrl Generic External Data Provider Start: 08-06-2024 Hemoglobin glycosyla ronna a1c Lacy Alberto HISTOTECHNOLOGIST SUPERVISOR Work Phone: Start: 03-23-2024 ALL CBC WITH AUTO DIFF Lacy Alberto HISTOTECHNOLOGIST SUPERVISOR Work Phone: Start: 11-17-2023 Mammography Lacy means HISTOTECHNOLOGIST SUPERVISOR Work Phone: Start: 11-17-2020 H/O: surgery S/P nasal septoplasty Rosemarie Yu CMA Plan of Treatment Date Care Activity Detail Author Start: 10-18-2025 Adult BMI Screening Adult BMI Screen ing [facility] Start: 10-18-2025 Tobacco Screening Tobacco Screening [facility] Start: 10-08-2025 Screening for malign ant neoplasm of breast Mammogram [facility] Start: 10-08-2025 Screening for malign ant neoplasm of colon Colorectal Cancer Screening [facility] Comment on above: Postponed from 01/05 (Patient Refused) Start: 06-04-2025 End: 06-04-2025 Patient encounter procedure 06/04/2025 10:00 AM EST Office Visit [facility] [address] [place] [phone] Lacy Alberto NP [address] [place] [phone] [facility] Start: 05-22-2025 Medicare Annual Well ness (AWV) Medicare Annual Wellness (AWV) [facility] Start: 03-29-2025 End: 03-29-2025 Patient encounter procedure 03/29/2025 12:45 PM EDT Office Visit [facility] [address] [place] [address] Billy Caruso MD [address] [place] [address] [facility] Start: 03-23-2025 Urine screening for protein Diabetes: Urine Protein Screening [facility] Start: 03-04-2025 Influenza vaccination Influenza Vacc ine [facility] Start: 11-16-2024 Screening for malign ant neoplasm of breast Mammogram [facility] Start: 11-16-2024 Screening for malign ant neoplasm of colon [facility] Start: 11-03-2024 Hemoglobin A1c measurement Irene betes: Hemoglobin A1C [facility] Start: 10-29-2024 End: 10-29-2024 Patient encounter procedure [facility] Start: 10-18-2024 End: 10-18-2025 NM Heart Perfusion W stress and W radionuclide IV Nuc stress [facility] Routine Coronary artery disease involving kaltag coronary artery of kaltag heart without angina pectoris Dyspnea, unspecified type Expected: 10/18/2024, Expires: 10/18/2025 [facility] Work Phone: Comment on above: Expected: 10/18/2024 , Expires: 10/18/2025 Start: 10-18-2024 End: 10-18-2024 Patient encounter procedure 10/18/2024 10:30 AM EDT Office Visit [facility] [address] [place] [phone] Alicia Henry MD [address] [place] [address] [facility] Start: 10-08-2024 End: 10-08-2024 Patient encounter procedure 10/08/2024 1:00 PM EDT Office Visit [facility] [address] [place] [phone] Lacy Alberto, DOMINIC [address] [place] [phone] [facility] Start: 08-06-2024 End: 08-06-2024 Patient encounter procedure [facility] Comment on above: Arteriosclerosis of coronary artery (CMS/HCC) (Primary Dx); Bipolar disorder, current episode mixed, mild (CMS/HCC); Type 2 diabetes mellitus with other specified complication (CMS/HCC); Chronic obstructive pulmonary disease, unspecified (CMS/HCC); Type 2 diabetes mellitus with diabetic polyneuropathy ([facility]/HCC); Type 2 diabetes mellitus without complication, without long-term current use of insulin ([facility]/HCC); Anxiety and depression ([facility]/HCC) Start: 07-11-2024 End: 07-11-2024 Patient encounter procedure 07/11/2024 2:40 PM EST Office Visit [facility] [address] [place] [address] Lacy Alberto, DOMINIC [address] [place] [address] [facility] Start: 06-22-2024 Hemoglobin A1c measurement Irene betes: Hemoglobin A1C [facility] Start: 06-21-2024 End: 06-21-2024 Patient encounter procedure 06/21/2024 10:30 AM EST Office Visit [facility] [address] [place] [address] Lacy Alberto, HISTOTECHNOLOGIST SUPERVISOR [address] [place] [id number] [facility] Start: 05-22-2024 End: 05-22-2025 MR Lumbar spine WO contrast MR lumbar spine wo contrast Imaging Routine Spondylosis of 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 Expected: 05/22/2024 (Approximate), Expires: 05/22/2025 [facility] Work Phone: Comment on above: Expected: 05/22/2024 (Approximate), Expires: 05/22/2025 Start: 05-22-2024 End: 05-22-2024 Patient encounter procedure [facility] Comment on above: BMI 32.0-32.9,adult (Primary Dx); Type 2 diabetes mellitus with diabetic polyneuropathy (CMS/HCC); Angina pectoris, unspecified ([facility]/HCC); Chronic obstructive pulmonary disease, unspecified (CMS/HCC); Type 2 diabetes mellitus without complication, without long-term current use of insulin ([facility]/HCC); Arteriosclerosis of coronary artery ([facility]/HCC); Tobacco use; Mixed hyperlipidemia ([facility]/HCC) Start: 03-04-2024 Influenza vaccination Influenz a Vaccine (#1) [facility] Start: 01-21-2023 Adult BMI Screening Adult BMI Screen ing [facility] Start: 12-19-2020 Hemoglobin A1c measurement Irene betes: Hemoglobin A1C [facility] Start: 01-05-2018 Administration of varicella zoster vaccine Zoster (Shingles) Vaccine (1 of 2) [facility] Start: 01-05-1998 Screening for malign ant neoplasm of cervix HPV/Cotest [facility] Start: 01-05-1989 Screening for malign ant neoplasm of cervix Pap Smear [facility] Start: 01-05-1987 DTaP,Tdap and Td Vac cines (1 - Tdap) DTaP,Tdap and Td Vaccines (1 - Tdap) [facility] Start: 01-05-1987 Urine screening for protein Diabetes: Urine Protein Screening [facility] Start: 01-05-1986 Adult BMI Follow Up Plan Adult BMI Follow Up Plan [facility] Start: 1980 Depression Screening Depression Scre ening [facility] Start: 1980 Tobacco Screening Tobacco Screening [facility] Start: 01-05-1978 Glaucoma screening Diabetes: R etinopathy Screening [facility] Start: 1968 Medicare Annual Well ness (AWV) Medicare Annual Wellness (AWV) [facility] Start: 1968 Screening for malign ant neoplasm of colon [facility] Start: 1968 Tobacco Counseling Tobacco Counselin g [facility] Payers Date Payer Category Payer Unknown 2019 Medicare (Managed Care) VITA Jennings ICA ADVANTAGE [id number] 2019 Medicare O ANTHEM MEDICARE [id number] 2016 Medicaid [id number] 2015 Medicare [id number] 1968 Unknown [id number]. 593 1968 Unknown [id number] [id number]. 593 1968 Unknown [id number] [id number]. 593 1968 Unknown [id number] 2.16.840.1.916374.3.579.2. 593 1968 Unknown [id number] [id number]. 196 1968 Unknown [id number] 2.16.840.1.765364.3.579.2. 196 1968 Unknown [id number] 2.16.840.1.804100.3.579.2. 196 1968 Unknown [id number] 2.16.840.1.924636.3.579.2. 196 1968 Unknown [id number] 2.16.840.1.389309.3.579.2. 1258 1968 Unknown [id number] 2.16.840.1.852160.3.579.2. 1258 1968 Unknown [id number] 2.16.840.1.204326.3.579.2. 1258 1968 Unknown [id number] [id number]. 9 1959 Medicaid [id number] 1961 Unknown [id number] Social History Date Type Detail Facility Start: 04-25-2017 End: 11-17-2023 Tobacco smoking status [facility] Smokes tobacco daily [facility] History of tobacco use Cigarette Smoker [facility] Start: 04-25-2017 End: 11-17-2023 Tobacco use and exposure Smokeless tobacco non-user [facility] Start: 11-17-2023 End: 10-08-2024 Alcoholic beverage intake Lifetime non-drinker (finding) [facility] Start: 09-17-2020 End: 11-17-2023 History of Social function [facility] Start: 09-17-2020 End: 11-17-2023 Tobacco use panel [facility] Start: 11-17-2023 Alcohol Comment caffine: 2 cup s of coffe and 6 soda daily [facility] Start: 1970 Sex assigned at Not on file [facility] Start: 02-03-2022 End: 10-18-2024 Alcoholic beverage intake Current non-drinker of alcohol (finding) [facility] Do you belong to any clubs or organizations such as anabaptist groups, unions, fraternal or athletic groups, or school groups? No [facility] Are you now , , , , never or living with a partner? [facility] Frequency of Alcohol Consumption Never [facility] Do you feel stress - tense, restless, nervous, or anxious, or unable to sleep at night because your mind is troubled all the time - these days [OSQ] Only a little [facility] Start: 12-12-2015 Sex Female (finding) [facility] Medical Equipment Procedure Code Equipment Code Equipment Origin al Text Equipment Identifier Dates Benjy Isaías Marvin a 3.5x15 Rx - [id number] FDA Start: 03-13-2020 Benjy Earlyrr a 3.5x8 Rx - [id number] ()[id number] FDA Start: 03-13-2020 Benjy Marvin a 3x15 Rx - [id number] ()[id number] FDA Start: 03-13-2020 Goals Date Patient Goal Desired Activity /State Personal health goal Comment on above: Formatting of this n ote might be different from the original. Evaluation of progress towards goal: feeling much better, moving well with therapy Clinical Notes 02-27-2024 to 10-18-2024 Alicia Henry MD - 10/18/2024 10:30 AM EDTPatient InstructionsTelephone Encounter - Dee Yu CMA - 10/17/2024 10:00 AM Shannan Alberto NP - 10/08/2024 1:27 PM EDTPatient Instructions Note Date & Type Note Facility 10-18-2024 History of Present illness Narrative Esmer Beach Date of visit: 10/18/2024 Date of : 1970 Age: 54 y.o. Patient Active Problem List Diagnosis Spondylosis without myelopathy or radiculopathy, lumbosacral region Disorder of sacrum Lumbosacral spondylosis without myelopathy Dehydration Coronary artery disease involving [place] coronary artery of [place] heart Chest pain due to myocardial ischemia Class 2 obesity in adult Angina pectoris Pure hypercholesterolemia Right sided weakness Cervical spondylosis with myelopathy and radiculopathy Leukocytosis Rotator cuff arthropathy of right shoulder Thornwaldt's cyst Deviated septum S/P nasal septoplasty Epistaxis Polycythemia Obesity (BMI 30-39.9) Uvular hypertrophy H/O uvulectomy Allergies Allergen Reactions Atorvastatin muscle cramps and Other (See Comments) legs Metoprolol Dizziness Latex, Natural Rubber Itching BURNING Metformin Diarrhea, Vomiting and GI Disturbance Current Outpatient Medications Medication Sig Dispense Refill ARIPiprazole (ABILIFY) 5 mg tablet Take 1 tablet (5 mg total) by mouth in the morning. escitalopram (LEXAPRO) 10 mg tablet Take 1 tablet (10 mg total) by mouth in the morning. [employer] HELEN 14 DAY SENSOR kit gabapentin (NEURONTIN) 300 mg capsule Take 1 capsule (300 mg total) by mouth 3 (three) times a day. oxyCODONE-acetaminophen (PERCOCET) 5-325 mg per tablet Take 1 tablet by mouth every 4 (four) hours as needed for pain. semaglutide (OZEMPIC) 0.25 mg or 0.5 mg(2 mg/1.5 mL) pen injector Inject 0.75 mg under the skin every 7 days. Pt takes on aspirin 81 mg Take 81 mg by mouth daily. (Patient not taking: Reported on 10/18/2024) famotidine (PEPCID) 20 mg tablet Take 20 mg by mouth in the morning. (Patient not taking: Reported on 10/18/2024) insulin glargine (LANTUS, BASAGLAR) 100 unit/mL (3 mL) insulin pen Inject 50 Units under the skin in the morning. Indications: type 2 diabetes mellitus. (Patient not taking: Reported on 01/12/2022) naloxone (NARCAN) 4 mg/actuation spray,non-aerosol nasal spray Administer 1 spray (4 mg total) into alternating nostrils as needed for opioid reversal. (Patient not taking: Reported on 10/18/2024) 1 each 1 nitroglycerin (NITROSTAT) 0.4 MG SL tablet 1 under the tongue as needed for angina, may repeat q5mins for up three doses (Patient not taking: Reported on 01/21/2022) 25 tablet 3 pediatric multivitamin no.136 (CHILDREN MULTIVITAMIN) tablet,chewable Chew and swallow daily. (Patient not taking: Reported on 10/18/2024) prednisoLONE (PRELONE) 15 mg/5 mL syrup Take 10 mL PO QD x 5 days (Patient not taking: Reported on 01/21/2022) 50 mL 0 promethazine (PHENERGAN) 6.25 mg/5 mL syrup Take 15-20 mL by mouth every 4-6 hours as needed for nausea vomiting (Patient not taking: Reported on 01/21/2022) 200 mL 0 rosuvastatin (CRESTOR) 10 mg tablet Take 1 tablet (10 mg total) by mouth daily. (Patient not taking: Reported on 10/18/2024) No current facility-administered medications for this visit. Chief Complaint Patient presents with New Patient HISTOTECHNOLOGIST SUPERVISOR REFERRAL PREOP CLEARANCE DR LONGORIA CERVICAL FUSION 11/02/2024 AND LUMBAR FUSION 12/21/24, LS TMP 06/30/21, LABS, EKG, CHEST XRAY 10/19/24 [facility], FORMS SCANNED TO MEDIA Pre-op Exam History of Present Illness 54-year-old female with medical history of coronary artery disease status post PCI with BENJY in 2019 2 mid LAD diabetes type 2 hypertension hyperlipidemia and tobacco smoking is here for preop evaluation. She is scheduled for a spinal surgery on November 03, 2023. She is very sedentary and does not do much due to her pain, she was not taking any medication including aspirin and Crestor she says that aspirin things her blood too much and upsets her stomach I suggested Plavix she said that it thins her blood too much and that she is fine she also does not take Crestor because she is fine Past Medical History: Diagnosis Date Angina pectoris None since stents Anxiety Anxiety attack Arthritis spine Back pain Chronic pain disorder Coronary artery disease S/P Stents Dental disease fake tooth Depression Diabetes mellitus type 2, controlled [place] Diverticulitis GERD (gastroesophageal reflux disease) Hypercholesterolemia Lumbar disc disease [place] (myocardial infarction) [place] Migraines Neck pain Obesity Sleep apnea Visual impairment glasses No data recorded No data recorded No data recorded Past Surgical History: Procedure Laterality Date ADENOIDECTOMY CARDIAC CATHETERIZATION stents x 2 Cardiac catheterization 03/13/2020 Performed by Rebecca Quinones MD at [facility] CARDIAC CATH LABS COLONOSCOPY with removal of polyups Coronary angiogram and left ventricular gram/pressure N/A 03/13/2020 Performed by Rebecca Quinones MD at [facility] CARDIAC CATH LABS CORONARY STENT PLACEMENT EGD N/A 08/24/2018 Performed by Hui Narvaez DO at [facility] EGD N/A 07/31/2018 Performed by Hui Narvaez DO at [facility] EXCISION CYST HEAD/NECK Circumferential 11/10/2020 Performed by Vanessa Hopkins MD PhD at [facility] EXCISION CYST MIDSECTION CPT code 04296 N/A 04/07/2021 Performed by Jamaal Shukla MD at [facility] EXCISION MASS PERINEUM and chest x 2 N/A 12/30/2020 Performed by Jamaal Shukla MD at [facility] HYSTERECTOMY INCISION DRAINAGE GROIN Left 04/07/2021 Performed by Jamaal Shukla MD at [facility] INJECTION MEDIAL BRANCH NERVE BLOCK: right L34 45 51 Right 08/19/2017 Performed by Cameron Hsieh MD at [facility] INJECTION MEDIAL BRANCH NERVE BLOCK: right L34 45 51 mbb 1 OF 2 Right 03/11/2017 Performed by Cameron Hsieh MD at [facility] INJECTION SACROILIAC NERVE Bilateral 03/02/2019 Performed by Cameron Hsieh MD at [facility] INJECTION SACROILIAC NERVE Right 05/22/2018 Performed by Cameron Hsieh MD at [facility] INJECTION SACROILIAC NERVE Right 05/08/2018 Performed by Cameron Hsieh MD at [facility] INJECTION SACROILIAC NERVE: left SI inj 1of 2 Left 04/08/2017 Performed by Cameron Hsieh MD at [facility] INJECTION SACROILIAC NERVE: Left SI INJ 2 OF 2 Left 04/22/2017 Performed by Cameron Hsieh MD at [facility] Intravascular pressure measurement first vessel(fractional flow reserve) N/A 03/13/2020 Performed by Rebecca Quinones MD at [facility] CARDIAC CATH LABS Intravascular ultrasound coronary N/A 03/13/2020 Performed by Rebecca Quinones MD at [facility] CARDIAC CATH LABS LAPAROSCOPIC CHOLECYSTECTOMY N/A 09/19/2018 Performed by Hui Narvaez DO at [facility] RADIO FREQUENCY ABLATION L3/4,4/5,5/S1 Left 12/06/2016 Performed by Cameron Hsieh MD at [facility] RADIO FREQUENCY ABLATION LEFT SI Left 05/13/2017 Performed by Cameron Hsieh MD at [facility] RADIO FREQUENCY ABLATION: left L34 45 51rfa Left 10/30/2018 Performed by Cameron Hsieh MD at [facility] RADIO FREQUENCY ABLATION: left SI Left 06/19/2018 Performed by Cameron Hsieh MD at [facility] RADIO FREQUENCY ABLATION: right L34 45 51rfa Right 11/13/2018 Performed by Cameron Hsieh MD at [facility] RADIO FREQUENCY ABLATION: right SI Right 07/03/2018 Performed by Cameron Hsieh MD at [facility] RADIOFREQUENCY ABLATION SPINAL: left L34 45 51rfa Left 11/07/2017 Performed by Cameron Hsieh MD at [facility] RADIOFREQUENCY ABLATION SPINAL: right L34 45 51 Right 09/12/2017 Performed by Cameron Hsieh MD at [facility] RESECTION SUBMUCOSAL NASAL Bilateral 11/10/2020 Performed by Vanessa Hopkins MD PhD at [facility] SEPTOPLASTY Circumferential 11/10/2020 Performed by Vanessa Hopkins MD PhD at [facility] Stent drug-eluting left anterior descending N/A 03/13/2020 Performed by Rebecca Quinones MD at [facility] CARDIAC CATH LABS TONSILLECTOMY TOTAL ABDOMINAL HYSTERECTOMY W/ BILATERAL SALPINGOOPHORECTOMY UVULOPLASTY N/A 01/21/2022 Performed by Vanessa Hopkins MD PhD at [facility] Family History Problem Relation Age of Onset Mental illness Mother Cancer Mother Heart disease Mother Heart disease Father Diabetes Father Mental illness Sister Diabetes Son Social History Socioeconomic History Marital status: Single Spouse name: Not on file Number of children: Not on file Years of education: Not on file Highest education level: Not on file Occupational History Not on file Tobacco Use Smoking status: Every Day Current packs/day: 1.00 Types: Cigarettes Smokeless tobacco: Never Vaping Use Vaping status: Never Used Substance and Sexual Activity Alcohol use: No Alcohol/week: 0.0 standard drinks of alcohol Drug use: Yes Types: Marijuana Comment: DAILY FOR PANIC ATTACKS Sexual activity: Defer Partners: Male Other Topics Concern Caffeine Use Yes Comment: about 2 cups a day of coffee and 3 small bottles of pepsi a day Social History Narrative Not on file Social Drivers of Health Financial Resource Strain: Low Risk (09/17/2020) Overall Financial Resource Strain (CARDIA) Difficulty of Paying Living Expenses: Not hard at all Food Insecurity: No Food Insecurity (10/18/2024) Hunger Screening Food Insecurity - Worry: Never True Food Insecurity - Inability: Never True Transportation Needs: No Transportation Needs (09/17/2020) PRAPARE - Transportation Lack of Transportation (Medical): No Lack of Transportation (Non-Medical): No Physical Activity: Inactive (09/17/2020) Exercise Vital Sign Days of Exercise per Week: 0 days Minutes of Exercise per Session: 0 min Stress: No Stress Concern Present (09/17/2020) [employer] [employer] - Occupational Stress Questionnaire Feeling of Stress : Only a little Social Connections: Socially Isolated (09/17/2020) Social Connection and Isolation Panel [NHANES] Frequency of Communication with Friends and Family: More than three times a week Frequency of Social Gatherings with Friends and Family: More than three times a week Attends Pentecostalism Services: Never Active Member of Clubs or Organizations: No Attends Club or Organization Meetings: Never Marital Status: Interpersonal Safety: Not At Risk (09/17/2020) Humiliation, Afraid, Rape, and Kick questionnaire Fear of Current or Ex-Partner: No Emotionally Abused: No Physically Abused: No Sexually Abused: No Housing Instability: Not on file Review of Systems Review of Systems Constitutional: Negative. HENT: Negative. Eyes: Positive for blurred vision. Cardiovascular: Negative. Respiratory: Negative. Endocrine: Negative. Hematologic/Lymphatic: Negative. Skin: Negative. Musculoskeletal: Positive for back pain. Gastrointestinal: Negative. Genitourinary: Negative. Neurological: Positive for headaches. Psychiatric/Behavioral: Positive for depression. The patient is nervous/anxious. Allergic/Immunologic: Positive for environmental allergies. Vascular: Negative. CARDIOVASCULAR: Please review HPI. Physical Examination General appearance: Alert, oriented and cooperative. In no acute distress. Skin: Warm and dry to touch. Head: Normocephalic, without obvious abnormality, atraumatic. Ears, Nose, Mouth, Throat: Throat clear without erythema or exudate. Dentition intact. Eyes: Conjunctivae unremarkable, EOM intact. Neck: No JVD, No carotid bruit. Neck supple, trachea midline. Respiratory: Clear to auscultation bilaterally, no use of accessory muscles. Cardiovascular: RRR with normal S1 and S2 with no murmurs. Gastrointestinal: Soft, non-tender. Bowel sounds normal. Musculoskeletal: No peripheral edema. Neurologic: Oriented to time, person and place, affect appropriate. No focal/major motor defects noted. Psychiatric: Appropriate mood, memory and judgement. VITAL SIGNS: BP 124/78 Pulse 100 Ht 160 cm (5' 3 ) Wt 87 kg (191 lb 12.8 oz) LMP 11/04/2014 SpO2 94% BMI 33.98 kg/m Orders Placed or Reconciled This Encounter Medications gabapentin (NEURONTIN) 300 mg capsule Sig: Take 1 capsule (300 mg total) by mouth 3 (three) times a day. There are no discontinued medications. IMPRESSIONS/PLAN There are no diagnoses linked to this encounter. Coronary artery disease status post PCI with BENJY to mid LAD in 2020 with residual small vessel obstructive OM1 disease otherwise mild nonobstructive, diagnosed in the setting of abnormal stress test Preserved LV ejection fraction and SPECT MPI Primary hypertension Diabetes type 2 on GLP 1 agonist Obesity Tobacco abuse close to 2 pack a day Medication noncompliance Depression/anxiety Patient is sedentary, continues to smoke and was not even taking aspirin and statin, recommend a nuclear stress test to further risk stratify prior to high-risk spinal surgery. Attempted to educate the patient about importance and indication of her meds including aspirin, Crestor, and smoking cessation. Appears to have poor insight and stated I am not as worried as you are Otherwise blood pressure at goal and is well compensated clinically Follow-up and preoperative risk stratification pending test TODAYS ORDERS No orders of the defined types were placed in this encounter. FOLLOW UP No follow-ups on file. PCP: BHANU MARINA Referring Physician: BHANU Marina [address] [place] [address] documented in this encounter [facility] 10-18-2024 Instructions Lacy Miller CMA - 10/18/2024 10:30 AM EDT Are You Ready To Kick The Habit? Free Tobacco Cessation Resources [facility] Services [facility] provide all employees with free tobacco cessation services that include: Counseling to understand nicotine addiction Education about medications that can help you successfully quit Assistance with developing a plan to quit Call to set up an individual appointment or find out when group classes will be held: [facility]: [phone] [facility]: [phone] [facility]: [phone] [facility]: [phone] Quit Smoking Action Plan and Resources [facility] offers an eight-week, online smoking cessation plan to all [facility] employees, regardless of whether [employer] is your medical insurance provider. Go to [email or web address].[email or web address]/[email or web address] ss and click the Health Risk Assessment and Resources link to get started. In the Zfkxi9Bbncml menu, click Action Plans instead of Health Risk Assessment to access the Quit Smoking Action Plan. Additional smoking cessation resources are also available to all [facility] employees on the Bmaay3Wacsyk web page at www.Framebridge/quitsm artie. [place] Tobacco Cessation Program If [place] is your medical insurance provider, there are more free resources available to you, including: No copays or deductibles on local tobacco cessation counseling services to help you quit Prescription assistance for tobacco cessation medications to help you quit For details about the tobacco cessation program available to [employer] members, go to www.Framebridge (Search: Tobacco Cessation Program). [place] Tobacco Quit Line 2-420-NHNG-NOW ( ) is a toll-free, telephonic service that helps [place] residents quit smoking and using tobacco. It is staffed by experts who tailor a quit plan for you and provide you with advice. [place] Tobacco Quit Line 6-281-ISHS-NOW ( ) is a toll-free, telephonic service that helps [place] residents quit smoking and using tobacco. It is staffed by experts who tailor a quit plan for you and provide you with advice. Two weeks of nicotine replacement therapy may be provided at no charge, if needed. Additional Resources These national organizations also offer free information and resources to help you quit tobacco: [place] [employer]--www.cancer.org/healthy/st ayawayfromtobacco [place] [employer]--www.heart.org (Search: Quit Smoking) Centers for Disease Control and Prevention--www.cdc.gov/tobacco [place] [employer]--www.lungusa.org documented in this encounter [facility] 10-17-2024 Miscellaneous Notes Left message for patient to remind them to bring their most current medication list with them to their appointment. documented in this encounter [facility] 10-17-2024 Telephone encounter Note Left message for patient to remind them to bring their most current medication list with them to their appointment. [facility] 10-08-2024 History of Present illness Narrative Associated Problem(s): Colon cancer screening Colon cancer screening options were discussed with patient, as well as why colon cancer screening is indicated. Options are Colonoscopy: direct visualization, every 10 years (unless indicated more frequently), risks and benefits were discussed Cologuard: every 3 years, risks and benefits were discussed , contraindications were discussed (family hx of colon cancer, colon polyps) Patient has elected to: refuses either Associated Problem(s): Bipolar disorder, current episode mixed, mild (CMS/HCC) No dose changes Associated Problem(s): Cervical spinal stenosis Continue with spine surgery Images from the original note were not included. Esmer Beach is a 54 y.o. female presents with chief complaint of No chief complaint on file. HPI: Continues with neck pain and Diabetes She presents for her follow-up diabetic visit. She has type 2 diabetes mellitus. Her disease course has been stable. Hypoglycemia symptoms include nervousness/anxiousness. Pertinent negatives for hypoglycemia include no dizziness, headaches, seizures or tremors. Associated symptoms include polydipsia and polyuria. Pertinent negatives for diabetes include no chest pain and no polyphagia. There are no hypoglycemic complications. Diabetic complications include heart disease and peripheral neuropathy. Risk factors for coronary artery disease include diabetes mellitus, dyslipidemia, obesity, sedentary lifestyle, post-menopausal and tobacco exposure. Current diabetic treatments: GLP 1. An JOHNNY inhibitor/angiotensin II receptor christiano is not being taken. She does not see a shovel engineer.Eye exam is not current. Anxiety Presents for follow-up visit. Symptoms include dry mouth, excessive worry, irritability and nervous/anxious behavior. Patient reports no chest pain, depressed mood, dizziness, nausea, palpitations, shortness of breath or suicidal ideas. Symptoms occur most days. The severity of symptoms is mild. Compliance with medications is 76-100%. Depression Visit Type: follow-up Patient presents with the following symptoms: dry mouth, excessive worry, irritability and nervousness/anxiety. Patient is not experiencing: anhedonia, depressed mood, palpitations, shortness of breath, suicidal ideas, suicidal planning and thoughts of . Frequency of symptoms: occasionally Severity: mild Compliance with medications: 76-100% SUBJECTIVE: MEDICATIONS: Current Outpatient Medications Medication Instructions ARIPiprazole (ABILIFY) 5 mg, Oral, Daily Continuous Glucose Automotive Lube Technician (FreeStyle Helen 2 Lavelle) device 1 each, Does not apply, Daily Continuous Glucose Sensor (FreeStyle Helen 2 Sensor) [facility] [place] to test BLOOD SUGAR change EVERY 14 days escitalopram (LEXAPRO) 10 mg, Oral, Daily gabapentin (NEURONTIN) 300 mg, 3 times daily Ozempic (1 MG/DOSE) 1 mg, Subcutaneous, Weekly ALLERGIES: Allergies Allergen Reactions Atorvastatin Other legs Metoprolol Dizziness Latex Itching BURNING Metformin Diarrhea and GI intolerance Pegademase Bovine Unknown headache Poractant Tianna Swelling Wheat GI intolerance Constipation REVIEW OF SYMPTOMS: Review of Systems Constitutional: Positive for irritability. Negative for appetite change, chills and fever. [...] back pain and neck pain. Negative for joint swelling and myalgias. Skin: Negative for rash and wound. Neurological: Negative for dizziness, tremors, seizures, syncope and headaches. Psychiatric/Behavioral: Positive for depression. Negative for behavioral problems, self-injury and suicidal ideas. The patient is nervous/anxious. Hematological: Does not bruise/bleed easily. Endocrine: Positive [...] not on file. OBJECTIVE: Visit Vitals BP 118/78 (BP Location: Left arm, Patient Position: Sitting, BP Cuff Size: Large adult) Pulse 89 Temp 98.1 F (Temporal) Resp 20 Wt 191 lb SpO2 95% BMI 33.83 kg/m Smoking Status Every Day BSA 1.96 m Physical Exam Vitals and nursing note [...] Tenderness: There is no abdominal tenderness. Musculoskeletal: General: Normal range of motion. Cervical back: Normal range of motion and neck supple. Right lower leg: No edema. Left lower leg: No edema. Lymphadenopathy: Cervical: No cervical adenopathy. Skin: General: [...] ASSESSMENT AND PLAN: Follow up in about 3 months (around 01/07/2025). Problem List Items Addressed This Visit Bipolar disorder, current episode mixed, mild (CMS/HCC) No dose changes Relevant Medications ARIPiprazole (Abilify) 5 MG tablet escitalopram (Lexapro) 10 MG tablet Anxiety and depression (CMS/HCC) Current meds lexapro and abilify PHQ 9= 7 CARLOS 7= 3 No dose changes Relevant Medications escitalopram (Lexapro) 10 MG tablet Spondylosis of 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 Was referred to pain mgmt Had XR 10/26 Will have surgery in future Type 2 diabetes mellitus without complication, without long-term current use of insulin - Primary Check blood sugars daily, notify [...] like to continue to use Current med: ozempic 1mg weekly, refuses asa/statin/arb/johnny use A1c 8.8% 08/06/24 ( Finances are tight and cannot afford healthy foods, also Cannot tolerate SGLT -2 or metformin, does not want insulin back again) Relevant Medications semaglutide (Ozempic, 1 MG/DOSE,) 4 MG/3ML solution pen-injector Encounter for screening mammogram for malignant neoplasm of breast Recommend mammogram for breast cancer screening Pt refuses DDD (degenerative disc disease), cervical Reviewed XR cervical spine from 10/26 Saw pain mgmt and was referred to Neurosurgeon Going to have surgeries Cigarette nicotine dependence without complication The patient has been advised of the risks of continued smoking: stroke, [place], all forms of cancer, lung disease, and . Options for quitting smoking include: cold turkey, hypnosis, acupuncture, nicotine replacement meds (gum, lozenges, and patches), Buproprion, and Varenicline. At this time pt is encouraged to evaluate their goals for wanting to quit smoking, and reach out to provider when ready to start this process Colon cancer screening Colon cancer screening options were discussed with patient, as well as why colon cancer screening is indicated. Options are Colonoscopy: direct visualization, every 10 years (unless indicated more frequently), risks and benefits were discussed Cologuard: every 3 years, risks and benefits were discussed , contraindications were discussed (family hx of colon cancer, colon polyps) Patient has elected to: refuses either Associated Problem(s): Spondylosis of 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 Was referred to pain mgmt Had XR 10/26 Will have surgery in future Associated Problem(s): DDD (degenerative disc disease), cervical Reviewed XR cervical spine from 10/26 Saw pain mgmt and was referred to Neurosurgeon Going to have surgeries Associated Problem(s): Encounter for screening mammogram for malignant neoplasm of breast Recommend mammogram for breast cancer screening Pt refuses Associated Problem(s): Anxiety and depression (CMS/HCC) Current meds lexapro and abilify PHQ 9= 7 CARLOS 7= 3 No dose changes Associated Problem(s): Type 2 diabetes mellitus without complication, without long-term current use of insulin Check blood sugars daily, notify if <70 [...] like to continue to use Current med: ozempic 1mg weekly, refuses asa/statin/arb/johnny use A1c 8.8% 08/06/24 ( Finances are tight and cannot afford healthy foods, also Cannot tolerate SGLT -2 or metformin, does not want insulin back again) Associated Problem(s): Cigarette nicotine dependence without complication The patient has been advised of the risks of continued smoking: stroke, [place], all forms of cancer, lung disease, and . Options for quitting smoking include: cold turkey, hypnosis, acupuncture, nicotine replacement meds (gum, lozenges, and patches), Buproprion, and Varenicline. At this time pt is encouraged to evaluate their goals for wanting to quit smoking, and reach out to provider when ready to start this process documented in this encounter [facility] 10-08-2024 Instructions Lacy Alberto NP - 10/08/2024 1:00 PM EDT Recommend quitting smoking: The patient has been advised of the risks of continued smoking: stroke, [place], all forms of cancer, lung disease, and . Options for quitting smoking include: cold turkey, hypnosis, acupuncture, nicotine replacement meds (gum, lozenges, and patches), Buproprion, and Varenicline. At this time pt is encouraged to evaluate their goals for wanting to quit smoking, and reach out to provider when ready to start this process If you change your mind about colon cancer screening and mammogram please contact me documented in this encounter [facility] 08-06-2024 History of Present illness Narrative Associated Problem(s): Spondylosis of lumbosacral [...] Lumbar back pain: Daily pain, went to [facility] pain mgmt, they had wanted her [...] (ABILIFY) 5 mg, Oral, Daily Continuous Glucose Automotive Lube Technician (FreeStyle Helen 2 Lavelle) device 1 each, Does not apply, Daily [...] Visit Bipolar disorder, current episode mixed, mild (CMS/[facility]) Current meds: lexapro and abilify Anxiety and depression (CMS/HCC) Current meds lexapro and abilify Arteriosclerosis of coronary artery (CMS/[facility]) Not compliant with statin, asa, or b [...] 2 months Chronic obstructive pulmonary disease, unspecified (CMS/[facility]) Recommend quitting smoking No daily inhaler use Cervical spinal stenosis Continue with pain mgmt Type 2 diabetes mellitus without complication, without long-term current use of insulin (CMS/[facility]) - Primary Check blood sugars daily, notify [...] again Associated Problem(s): Arteriosclerosis of coronary artery ([facility]) Not compliant with statin, asa, or b christiano use Associated Problem(s): Chronic obstructive pulmonary disease, unspecified ([facility]) Recommend quitting smoking No daily inhaler use Associated Problem(s): Type 2 diabetes mellitus with diabetic polyneuropathy ([facility]) Recommend good blood glucose control Freq foot examinations or s/s open wounds documented in this encounter [facility] 08-06-2024 Instructions Lacy Alberto NP - 08/06/2024 3:00 PM EST Increase ozempic to 1mg daily Continue with pain mgmt documented in this encounter [facility] 07-23-2024 History of Present illness Narrative Associated Problem(s): Spondylosis of 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 OARRS reviewed Will provide a refill of pain medication until seen by pain mgmt documented in this encounter [facility] 06-25-2024 Telephone encounter Note Please contact pt, her insurance company denied her MRI lumbar spine, states she needs to do 6 weeks PT Is she willing to do this, or does she want a referral to pain mgmt, and if she wants a referral: claudia? [place] [facility] 06-25-2024 Miscellaneous Notes Please contact pt, her insurance company denied her MRI lumbar spine, states she needs to do 6 weeks PT Is she willing to do this, or does she want a referral to pain mgmt, and if she wants a referral: claudia? [place] documented in this encounter [facility] 05-22-2024 History of Present illness Narrative Associated Problem(s): Encounter for subsequent [...] Pt would like an order for a Billy ornelas Fax number [phone] Pt is asking for a handicap plaque [...] (ABILIFY) 5 mg, Oral, Daily Continuous Glucose Automotive Lube Technician (FreeStyle Helen 2 Lavelle) device 1 each, Does not apply, Daily Continuous Glucose Automotive Lube Technician (FreeStyle Helen 3 Lavelle) device 1 each, Does not apply, Daily [...] (CMS/HCC) Needs to quit smoking Mixed hyperlipidemia (CMS/HCC) Declines use of statin therapy Advised risk for stroke, [place], without use Type 2 diabetes mellitus without complication, without long-term current use of insulin ([facility]) Check blood sugars daily, notify if <70 [...] MG/DOSE,) 2 MG/3ML solution pen-injector Continuous Glucose Automotive Lube Technician ([employer] Helen 3 Lavelle) device RESOLVED: BMI 32.0-32.9,adult Type 2 diabetes mellitus with diabetic polyneuropathy (CMS/[facility]) Need for tight blood sugar control Tobacco use The patient has been advised of the risks of continued smoking: stroke, LA, all forms of cancer, lung disease, and [...] of statin therapy Advised risk for stroke, LA, without use Associated Problem(s): Tobacco use The patient has been advised of the risks of continued smoking: stroke, LA, all forms of cancer, lung disease, and . Options for quitting smoking include: cold turkey, hypnosis, acupuncture, nicotine replacement meds (gum, lozenges, and patches), Buproprion, and Varenicline. At this time pt is encouraged to evaluate their goals for wanting to quit smoking, and reach out to provider when ready to start this process Associated Problem(s): Arteriosclerosis of coronary artery ([facility]) Does not take stating therapy, or b christiano, does take ASA Associated Problem(s): Angina pectoris, unspecified ([facility]) Hx of CAD, no active angina, does not take statin or b christiano, pt declines to take Associated Problem(s): Type 2 diabetes mellitus without complication, without long-term current use of insulin ([facility]) Check blood sugars daily, notify if <70 [...] continue to use documented in this encounter [facility] 05-22-2024 Instructions Lacy Alberto NP - 05/22/2024 9:00 AM EST Order MRI documented in this encounter [facility] 04-30-2024 Telephone encounter Note Patient is asking if she can get a handicap placard? JN [facility] 04-30-2024 Miscellaneous Notes Patient is asking if she can get a handicap placard? JN Patient said she did go up to .5 documented in this encounter [facility] 04-30-2024 Telephone encounter Note Patient said she did go up to .5 [facility] 03-23-2024 Telephone encounter Note Call from [facility] Er, Dr Nobles... pt in er [...] several months since she was last seen [facility] 03-23-2024 Miscellaneous Notes Call from [facility] Er, Dr Nobles... pt in er asking for refill of ozempic, has been out for 6 months. Blood sugar 289 I told him I would order it, needs to go to [facility], but it may require a prior authorization to get, and that would not happened until next week if needed. Also told him to have her make a fu appt with our office, as it had been several months since she was last seen documented in this encounter [facility] 02-27-2024 Telephone encounter Note pt called needing a new free style helen pan shover sent into [facility] her old one no longer works and is in need of a new one [facility] 02-27-2024 Miscellaneous Notes pt called needing a new free style helen pan shover sent into [facility] her old one no longer works and is in need of a new one documented in this encounter [facility] Healthcare Evaluation note Diagnosis Type 2 diabetes mellitus without complication, without long-term current use of insulin (CMS/HCC) documented in this encounter [facility] HealthcareEvaluation note* Diagnosis Type 2 diabetes mellitus [...] of insulin (CMS/HCC) documented in this encounter [facility] HealthcareEvaluation note* Diagnosis Type 2 diabetes mellitus [...] and depression (CMS/HCC) documented in this encounter [facility] HealthcareEvaluation note* Diagnosis Type 2 diabetes mellitus [...] insulin (CMS/HCC)- Primary documented in this encounter [facility] HealthcareEvaluation note* Diagnosis Type 2 diabetes mellitus without complication, without long-term current use of insulin (CMS/HCC)- Primary documented in this encounter [facility] HealthcareEvaluation note* Diagnosis Type 2 diabetes mellitus without complication, without long-term current use of insulin (CMS/HCC)- Primary documented in this encounter [facility] HealthcareEvaluation note* Diagnosis Type 2 diabetes mellitus [...] without myelopathy- Primary documented in this encounter [facility] HealthcareEvaluation note* Diagnosis Type 2 diabetes mellitus [...] spine without myelopathy documented in this encounter [facility] HealthcareEvaluation note* Diagnosis Type 2 diabetes mellitus [...] of unspecified site documented in this encounter [facility] HealthcareEvaluation note* Diagnosis Type 2 diabetes mellitus without complication, without long-term current use of insulin- Primary Arteriosclerosis of coronary artery (CMS/HCC) 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 polyneuropathy (CMS/HCC) Angina pectoris, unspecified Chronic obstructive pulmonary disease, unspecified BMI 32.0-32.9,adult Type 2 diabetes mellitus without complication, without long-term current use of insulin Arteriosclerosis of coronary artery (CMS/HCC) Tobacco use Mixed hyperlipidemia (CMS/HCC) Mixed hyperlipidemia Spondylosis of 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 Bipolar disorder, current episode mixed, mild (CMS/HCC) Anxiety and depression (CMS/HCC) Spondylosis of 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- Primary Type 2 diabetes mellitus without complication, without long-term current use of insulin- Primary Bipolar disorder, current episode mixed, mild (CMS/HCC) Type 2 diabetes mellitus with other specified complication Chronic obstructive pulmonary disease, unspecified Type 2 diabetes mellitus with diabetic polyneuropathy (CMS/HCC) Arteriosclerosis of coronary artery (CMS/HCC) Anxiety and depression (CMS/HCC) Cervical spinal stenosis Spinal stenosis in cervical region Spondylosis of 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 Anxiety and depression (CMS/HCC)- Primary Cigarette nicotine dependence without complication Type 2 diabetes mellitus without complication, without long-term current use of insulin Encounter for screening mammogram for malignant neoplasm of breast DDD (degenerative disc disease), cervical Degeneration of cervical intervertebral disc Spondylosis of 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 Bipolar disorder, current episode mixed, mild (CMS/HCC) Colon cancer screening Special screening for malignant neoplasms, colon documented in this encounter [facility]* Diagnosis Pre-op testing- Primary Unspecified pre-operative examination Coronary artery disease involving [place] coronary artery of [place] heart without angina pectoris Dyspnea, unspecified type [facility] System[facility]ructionsNot on filedocumented in this encounter [facility] Summary Purpose Family History No Family History Records FoundNo Family History Records FoundNo Family History Records FoundNo Family History Records FoundNo Family History Records Found Advance Directives Date Activated Date Inactivated Comments 09/17/2020 8:38 PM 09/18/2020 8:20 PM Date Activated Date Inactivated Comments 08/30/2019 8:52 AM 08/31/2019 2:42 PM Date Activated Date Inactivated Comments 09/17/2020 8:38 PM 09/18/2020 8:20 PM Date Activated Date Inactivated Comments 08/30/2019 8:52 AM 08/31/2019 2:42 PM Reason for Referral Specialty Diagnoses / Procedures Referred By Marleni t Referred To Contact Diagnoses Type 2 diabetes mellitus without complication, without long-term current use of insulin (CMS/HCC) Lacy Alberto, DOMINIC [address] [place] [address] Referral ID Status Reason Start Date Expiration Date V isits Requested Visits Authorized [id number] Pending Review 04/05/2024 10/02/2024 1 1 Referral ID Status Reason Start Date Expiration Date Visits Re quested Visits Authorized [id number] Closed 1 1 Additional Source Comments INFORMATION SOURCE (unrecogn ized section and content) DATE CREATED AUTHOR 01/21/2019 [facility] DATE CREATED AUTHOR AUTHOR'S ORGANIZ ATION 01/30/2020 [facility] DATE CREATED AUTHOR AUTHOR'S ORGANIZ ATION 09/13/2022 [facility] DATE CREATED AUTHOR AUTHOR'S ORGANIZ ATION 09/27/2024 [facility] DATE CREATED AUTHOR AUTHOR'S ORGANIZ ATION 10/09/2024 [facility] Care Teams (unrecognized sec tion and content) Human Intelligence Relationship Specialty Start Date End Date Fred Pryor MD [address] [place] [phone] PCP - General Family Medicine 11/17/23 Lacy Alberto NP [address] [place] [phone] Referring Physician Family Medicine 07/04/22 Lacy Alberto NP [address] [place] [phone] Nurse Practitioner Family Medicine 11/17/23 Human Intelligence Relationship Specialty Start Date End Date Fred Pryor MD [address] [place] [phone] PCP - General Family Medicine 11/17/23 Lacy Alberto NP [address] [place] [phone] Referring Physician Family Medicine 07/04/22 Lacy Alberto NP [address] [place] [phone] Nurse Practitioner Family Medicine 11/17/23 Human Intelligence Relationship Specialty Start Date End Date Fred Pryor MD [address] [place] [phone] PCP - General Family Medicine 11/17/23 Lacy Alberto NP [address] [place] [phone] Referring Physician Family Medicine 07/04/22 Lacy Alberto NP [address] [place] [phone] Nurse Practitioner Family Medicine 11/17/23 Human Intelligence Relationship Specialty Start Date End Date Fred Pryor MD [address] [place] [phone] PCP - General Family Medicine 11/17/23 Lacy Alberto NP [address] [place] [phone] Referring Physician Family Medicine 07/04/22 Lacy Alberto NP [address] [place] [phone] Nurse Practitioner Family Medicine 11/17/23 Human Intelligence Relationship Specialty Start Date End Date Fred Pryor MD [address] [place] [phone] PCP - General Family Medicine 11/17/23 Lacy Alberto NP [address] [place] [phone] Referring Physician Family Medicine 07/04/22 Lacy Alberto NP [address] [place] [phone] Nurse Practitioner Family Medicine 11/17/23 Human Intelligence Relationship Specialty Start Date End Date Fred Pryor MD [address] [place] [phone] PCP - General Family Medicine 11/17/23 Lacy Alberto NP [address] [place] [phone] Referring Physician Family Medicine 07/04/22 Lacy Alberto NP [address] [place] [phone] Nurse Practitioner Family Medicine 11/17/23 Human Intelligence Relationship Specialty Start Date End Date Fred Pryor MD [address] [place] [phone] PCP - General Family Medicine 11/17/23 Lacy Alberto NP [address] [place] [phone] Referring Physician Family Medicine 07/04/22 Lacy Alberto NP [address] [place] [phone] Nurse Practitioner Family Medicine 11/17/23 Human Intelligence Relationship Specialty Start Date End Date Fred Pryor MD [address] [place] [phone] PCP - General Family Medicine 11/17/23 Lacy Alberto NP [address] [place] [phone] Referring Physician Family Medicine 07/04/22 Lacy Alberto NP [address] [place] [phone] Nurse Practitioner Family Medicine 11/17/23 Human Intelligence Relationship Specialty Start Date End Date Fred Pryor MD [address] [place] [phone] PCP - General Family Medicine 11/17/23 Lacy Alberto NP [address] [place] [phone] Referring Physician Family Medicine 07/04/22 Lacy Alberto NP [address] [place] [phone] Nurse Practitioner Family Medicine 11/17/23 Human Intelligence Relationship Specialty Start Date End Date Fred Pryor MD [address] [place] [phone] PCP - General Family Medicine 11/17/23 Lacy Alberto NP [address] [place] [phone] Referring Physician Family Medicine 07/04/22 Lacy Alberto NP [address] [place] [phone] Nurse Practitioner Family Medicine 11/17/23 Human Intelligence Relationship Specialty Start Date End Date Fred Pryor MD [address] [place] [phone] PCP - General Family Medicine 11/17/23 Lacy Alberto NP [address] [place] [phone] Referring Physician Family Medicine 07/04/22 Lacy Alberto NP [address] [place] [phone] Nurse Practitioner Family Medicine 11/17/23 Human Intelligence Relationship Specialty Start Date End Date Fred Pryor MD [address] [place] [phone] PCP - General Family Medicine 11/17/23 Lacy Alberto NP [address] [place] [phone] Referring Physician Family Medicine 07/04/22 Lacy Alberto NP [address] [place] [phone] Nurse Practitioner Family Medicine 11/17/23 Human Intelligence Relationship Specialty Start Date End Date Fred Pryor MD [address] [place] [phone] PCP - General Family Medicine 11/17/23 Lacy Alberto NP [address] [place] [phone] Referring Physician Family Medicine 07/04/22 Lacy Alberto NP [address] [place] [phone] Nurse Practitioner Family Medicine 11/17/23 Human Intelligence Relationship Specialty Start Date End Date Fred Pryor MD [address] [place] [address] PCP - General Family Medicine 11/17/23 Lacy Alberto NP [address] [place] [address] Referring Physician Family Medicine 07/04/22 Lacy Alberto NP [address] [place] [address] Nurse Practitioner Family Medicine 11/17/23 Human Intelligence Relationship Specialty Start Date End Date Fred Pryor MD [address] [place] [address] PCP - General Family Medicine 11/17/23 Lacy Alberto NP [address] [place] [address] Referring Physician Family Medicine 07/04/22 Lacy Alberto NP [address] [place] [address] Nurse Practitioner Family Medicine 11/17/23 Human Intelligence Relationship Specialty Start Date End Date Fred Pryor MD [address] [place] [address] PCP - General Family Medicine 11/17/23 Lacy Alberto NP [address] [place] [address] Referring Physician Family Medicine 07/04/22 Lacy Alberto NP [address] [place] [address] Nurse Practitioner Family Medicine 11/17/23 Human Intelligence Relationship Specialty Start Date End Date Lacy Alberto APRN-ROTOPRINTER PCP - General Nurse Practitioner 12/30/16 Human Intelligence Relationship Specialty Start Date End Date Lacy Alberto APRN-ROTOPRINTER PCP - General Nurse Practitioner 12/30/16 Reason for Visit (unrecogniz ed section and content) Reason Onset Date Comments Med Refill 04/30/2024 Reason Comments Diabetes Reason Comments 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 [employer] [facility]. provides no warranty or guarantee of the accuracy or completeness of information in this document.
[2024-10-19 10:50] LABS: Basophils Absolute Auto 0.1 10^3/uL (0.0-0.1); Basophils Percent Auto 0.8 % (0.2-2.0); Eosinophils Absolute Auto 0.2 10^3/uL (0.0-0.7); Eosinophils Percent Auto 1.7 % (0.9-7.0); Hematocrit 53.1 % (36.0-48.0); Hemoglobin 18.2 g/dL (12.0-16.0); Immature Granulocytes Abs Auto 0.04 10^3/uL (0.00-0.03); Immature Granulocytes Pct Auto 0.3 % (0.0-0.5); Lymphocytes Absolute Auto 3.5 10^3/uL (1.2-3.8); Lymphocytes Percent Auto 27.7 % (20.5-60.0); Mean Corpuscular HGB Conc 34.3 g/dL (29.9-35.2); Mean Corpuscular Hemoglobin 30.4 pg (26.7-34.0); Mean Corpuscular Volume 88.6 fL (81.0-99.0); Mean Platelet Volume 8.8 fL (9.5-13.5); Monocytes Absolute Auto 0.4 10^3/uL (0.3-0.8); Monocytes Percent Auto 3.3 % (1.7-12.0); Neutrophils Absolute Auto 8.4 10^3/uL (1.4-6.5); Neutrophils Percent Auto 66.2 % (43.0-75.0); Platelet Count 249 10^3/uL (150-450); Red Blood Count 5.99 10^6/uL (4.20-5.40); Red Cell Distribution Width 15.4 % (11.0-15.0); White Blood Count 12.6 10^3/uL (4.0-11.0)
[2024-10-19 11:15] LABS: Alanine Aminotransferase 17 U/L (14-59); Albumin Level 3.4 g/dL (3.4-5.0); Alkaline Phosphatase 111 U/L (46-116); Anion Gap 12.7; Aspartate Amino Transferase 9 U/L (15-37); BUN Creatinine Ratio 17.2; Bilirubin Direct 0.1 mg/dL (0.0-0.2); Bilirubin Total 0.3 mg/dL (0.2-1.0); Calcium 8.8 mg/dL (8.5-10.1); Carbon Dioxide 24.6 mmol/L (21.0-32.0); Chloride 106 mmol/L (98-107); Estimated GFR (African America >60 (>=60 mL/min/1.73m^2); Estimated GFR (Non-African Ame >60 (>=60 mL/min/1.73m^2); Globulin 3.4 g/dL; Glucose 175 mg/dL (74-106); Potassium 4.3 mmol/L (3.5-5.1); Sodium 139 mmol/L (136-145); Total Protein 6.8 g/dL (6.4-8.2)
[2024-10-19 11:31] LABS: INR 0.98; Partial Thromboplastin Time 28.2 sec (22.3-36.2); Prothrombin Time 10.4 sec (9.0-11.6)
[2024-10-19 11:42] LABS: Estimated Average Glucose 186 mg/dL; Glycohemoglobin A1C 8.1 % (4.5-6.2)
== END 2024-10-19 09:57 | disposition home or self-care (01) ==
LOC: PST 09:57
PROVIDERS: PCP Nurse Practitioner; Visit Provider Orthopaedic Surgery Orthopaedic Surgery of the Spine
DX: Z01.810 Encounter for preprocedural cardiovascular examination (principal); Z01.812 Encounter for preprocedural laboratory examination; M48.00 Spinal stenosis, site unspecified
CPT/HCPCS: 71046; 80048; 80076; 83036; 85025; 85610; 85730; 86850; 86900; 86901; 87081; 93005

== ENCOUNTER 2025-03-15 07:22 | Outpatient (OUT) | payer MEDICARE, MEDICAID, SELFPAY ==
--- OUTSIDE RECORDS SUMMARY | 2024-11-02 03:30 | XMS_ITS ---
Author Organization [facility] Address [address] [place] [address] Care Team Providers Care Wildfire Prevention Specialist Name Role Phone Obdulio Rose Unavailable [phone] Lynsey PATEL, Vaishnavi Unavailable Unavailab le REASON FOR VISIT C5-7 ACDF, [facility] Encounters Encounter Location Date Provider Diagnosis [facility] [address] [place] [address] 11/02/2024 Obdulio Rose Plan Of Treatment Next Appt Details Provider Name:Obdulio [facility], 03/21/2025 09:10:00 AM, [address] [place] [address], [phone], Provider Name:[facility]dulio [facility], 03/26/2025 07:30:00 AM, [address] [place], [place], [phone], Provider Name:Obdulio [facility], 05/09/2025 08:50:00 AM, [address] [place] [address], [phone], Progress Notes * ADDIE BEACH MDOB:[birth year] (55 yo F)Acc No.[id number]:11/02/2024 Patient: Rosemarie ADDIE MONTEJO Provider: Irving Coles MD, PhD :1970 A ge:54 Y S ex:Female Date:11/02/2024 Address:[address] [place], [place] * Images: * Electronic signature of Selv sandhya Rose MD, PHD on 03/15/2025 at 07:25 AM EDT Sign off status: Pending * Provider: Irving Coles MD, PhD Date: 0 11/02/2024 Generated for Jr wood/Geno/Vanita on: 0 03/15/2025 07:25 AM EDT
--- OUTSIDE RECORDS SUMMARY | 2024-12-14 07:40 | XMS_ITS ---
Author Organization [facility] Address [address] [place] [address] Care Team Providers Care News Writer Name Role Phone Obdulio Rose Unavailable [phone] Lynsey PATEL, Vaishnavi Unavailable Unavailab le REASON FOR VISIT C5-7 ACDF, 11/02/24 & H& P FOR L5-S1 DECOMRESSION AND FUSION 12/21/24, Encounters Encounter Location Date Provider Diagnosis [facility] [address] [place] [phone] 12/14/2024 Obdulio Rose Plan Of Treatment Next Appt Details Provider Name:[facility]dulio [facility], 03/21/2025 09:10:00 AM, [address] [place] [address], [phone], Provider Name:Obdulio [facility], 03/26/2025 07:30:00 AM, [address] [place], [place], [phone], Provider Name:Obdulio [facility], 05/09/2025 08:50:00 AM, [address] [place] [address], [phone], Progress Notes * ADDIE BEACH MDOB:[birth year] (55 yo F)Acc No.[id number]:12/14/2024 Progress Notes Patient: Rosemarie ADDIE MONTEJO Provider: Irving Coles MD, PhD :1970 A ge:54 Y S ex:Female Date:12/14/2024 Address:[address] [place] [address] [id number] Subjective: * Chief Complaints: * 1 . C5-7 ACDF, 11/02/24 & H& P FOR L5-S1 DECOMRESSION AND FUSION 12/21/24, . * Medical History: Objective: * Vitals: Assessment: Plan: * Treatment: Forms: * Images: * Electronic signature of Ramana Rose MD, PHD on 03/15/2025 at 07:26 AM EDT Sign off status: Pending * Provider: Irving Coles MD, PhD Date: 0 12/14/2024 Generated for Jr wood/Geno/Liliasmitting on: 0 03/15/2025 07:26 AM EDT
--- OUTSIDE RECORDS SUMMARY | 2024-12-21 03:30 | XMS_ITS ---
Author Organization [facility] Address [address] [place] [address] Care Team Providers Care Appraiser Land Name Role Phone Obdulio Rose Unavailable [phone] Lynsey PATEL, Androny Unavailable Unavailab le REASON FOR VISIT L5-S1 DECOMPRESSION AND FUSION , [facility] Encounters Encounter Location Date Provider Diagnosis [facility] Inpatient [address] [place] [address] 12/21/2024 Obdulio Rizzo Clair Plan Of Treatment Next Appt Details Provider Name:Obdulio [facility], 03/21/2025 09:10:00 AM, [address] [place] [address], [phone], Provider Name:[facility]dulio [facility], 03/26/2025 07:30:00 AM, [address] [place], [place], [phone], Provider Name:Obdulio [facility], 05/09/2025 08:50:00 AM, [address] [place] [address], [phone], Progress Notes * ADDIE BEACH MDOB:[birth year] (55 yo F)Acc No.[id number]:12/21/2024 Patient: ADDIE RUBIO Provider: Irving Coles MD, PhD :1970 A ge:54 Y S ex:Female Date:12/21/2024 Address:[address] [place], [place] * Images: * Electronic signature of Selv sandhya Rose MD, PHD on 03/15/2025 at 07:26 AM EDT Sign off status: Pending * Provider: Irving Coles MD, PhD Date: 0 12/21/2024 Generated for Jr wood/Geno/Vanita on: 0 03/15/2025 07:26 AM EDT
--- OUTSIDE RECORDS SUMMARY | 2025-03-15 07:25 | XMS_ITS | Encounter Summary ---
Author Organization [facility] Address [address] [place] [address] Care Team Providers Care Gravity Prospecting Supervisor Name Role Phone Lacy Alberto MAGNETOMETER OPERATOR Unavailable [phone] Fred Pryor MD Primary Care Provider [phone] Lacy Alberto MAGNETOMETER OPERATOR Unavailable [phone] Encounter Details Date Type Department Care Team (Late st Contact Info) Description 11/18/2023 Clinisync Result Encounter [facility] External Department Unsolicited Lacy Alberto NP [address] [place] [address] Social History Tobacco Use Types Packs/Day Years Used Date Smoking Tobacco: Every Day Cigarettes Smokeless Tobacco: Never Alcohol Use Standard Drinks/Week Comments Never 0 (1 standard drink = 0.6 oz pure alcohol) caffine: 2 cups of coffe and 6 soda daily PHQ-2 Answer Date Recorded Patient Health Questionnaire-2 Score 0 11/17/2023 Comments Unknown Sex and Gender Information Value Date Recorded Sex Assigned at Not on file Legal Sex Female 11:08 PM EDT Gender Identity Not on file Sexual Orientation Not on file documented as of this encounter Plan of Treatment Not on file documented as of this encounter Procedures Procedure Name Priority Date/Time Associated Diagnosis Comments XR HIP 2 OR 3 VW RIGHT 11/18/2023 9:41 AM EDT documented in this encounter Results * XR hip right 2 or 3 views (11/18/2023 9:41 AM EDT) Anatomical Region Laterality Modality Lower Extremities, Hip Right Radiograp hic Imaging 11/18/2023 9:41 AM EDT Narrative 11/18/2023 9:44 AM EDT The [address] [address] XRay Report Signed Patient: ESMER BEACH MR#: [id number] : 1970 Acct:[id number] Age/Sex: 53 / F ADM Date: 11/18/23 Loc: RAD Attending Dr: Lacy Alberto MAGNETOMETER OPERATOR Ordering Physician: Lacy Alberto NP Date of Service: 11/18/23 Procedure(s): XR hip RT min 2V Accession Number(s): [id number] cc: Lacy Alberto NP [place] [address] Patient Name: ESMER BEACH MRN: [id number] date: 1970 Sex: F Assigned Patient Location: [facility] Current Patient Location: [facility] Accession/Order Number: [id number] Exam Date: 11/18/2023 08:52 Report Date: 11/18/2023 09:41 At the request of: LACY ALBERTO Procedure: XR hip RT min 2V PROCEDURE: XR hip RT min 2V COMPARISON: None. HISTORY: Right Hip Pain FINDINGS: BONES:No acute fracture or dislocation. No significant proliferative changes. Narrowing of the inferior joint space SOFT TISSUES:Negative. No visible soft tissue swelling. EFFUSION:None visible. OTHER: Negative. XR/XR hip RT min 2V IMPRESSION: Mild joint space narrowing Electronically authenticated by: NAHOMY BUCHANAN Date: 11/18/2023 09:41 Dictated By: Nahomy Buchanan M.D. Signed By: 11/18/2344 DD/ 0 TD/TT: Mercury Purifier: Procedure Note Radiology, Radiologist, MD - 11/18/[address] [address] XRay Report Signed Patient: ESMER BEACH MMR#: [id number] : 1970Acct:[id number] Age/Sex: 53 / FADM Date: 11/18/23 Loc: RAD Attending Dr: Lacy Alberto MAGNETOMETER OPERATOR Ordering Physician: Lacy Alberto NP Date of Service: 11/18/23 Procedure(s): XR hip RT min 2V Accession Number(s): [id number] cc: Lacy Alberto NP [place] [id number] Patient Name: ESMER BEACH MRN: [id number] date: 1970 Sex: F Assigned Patient Location: [facility] Current Patient Location: RAD Accession/Order Number: [id number] Exam Date: 11/18/2023 08:52 Report Date: 11/18/2023 09:41 At the request of: LACY ALBERTO Procedure: XR hip RT min 2V PROCEDURE: XR hip RT min 2V COMPARISON: None. HISTORY: Right Hip Pain FINDINGS: BONES:No acute fracture or dislocation. No significant proliferativechanges. Narrowing of the inferior joint space SOFT TISSUES:Negative. No visible soft tissue swelling. EFFUSION:None visible. OTHER: Negative. XR/XR hip RT min 2V IMPRESSION: Mild joint space narrowing Electronically authenticated by: NAHOMY BUCHANAN Date: 11/18/2023 09:41 Dictated By: Nahomy Buchanan M.D. Signed By:11/18/23 0944 DD/ TD/TT: Mercury Purifier: Lacy Alberto NP IMG XR PROCEDURES Final Result documented in this encounter Visit Diagnoses Not on filedocumented in this encounter Care Teams Gravity Prospecting Supervisor Relationship Specialty Start Date End Date Fred Pryor MD PCP - General Family Medicine 11/17/23 Lacy Alberto NP Referring Physician Family Medicine 07/04/22 Lacy Alberto NP Nurse Practitioner Family Medicine 11/17/23 documented as of this encounter
--- OUTSIDE RECORDS SUMMARY | 2025-03-15 07:25 | XMS_ITS | Encounter Summary ---
Author Organization [facility] Address [address] [place] [address] Care Team Providers Care Glaze Grinder Name Role Phone Lacy Alberto TOWBOAT PILOT Unavailable [phone] Fred Pryor MD Primary Care Provider [phone] Lacy Alberto TOWBOAT PILOT Unavailable [phone] Reason for Visit * Reason Comments Med Refill Encounter Details Date Type Department Care Team ([facility] Contact Info) Description 10/22/2023 [facility]ill [facility] [address] [place] [address] Lacy Alberto NP [address] [place] [address] Bipolar disorder, current episode mixed, mild (HCC) Social History Tobacco Use Types Packs/Day Years Used Date Smoking Tobacco: Never Assessed Comments Unknown Sex and Gender Information Value Date Recorded Sex Assigned at Not on file Legal Sex Female 11:08 PM EDT Gender Identity Not on file Sexual Orientation Not on file documented as of this encounter Plan of Treatment Not on file documented as of this encounter Visit Diagnoses Diagnosis Bipolar disorder, current episode mixed, mild (HCC) documented in this encounter Care Teams Glaze Grinder Relationship Specialty Start Date End Date Fred Pryor MD PCP - General Family Medicine 11/17/23 Lacy Alberto NP Referring Physician Family Medicine 07/04/22 Lacy Alberto NP Nurse Practitioner Family Medicine 11/17/23 documented as of this encounter
--- OUTSIDE RECORDS SUMMARY | 2025-03-15 07:25 | XMS_ITS | Encounter Summary ---
Author Organization [facility] Address [address] [place] [facility] [place] [address] Care Team Providers Care Ore Washer Name Role Phone Lacy Alberto GLASS ROBOT OPERATOR Unavailable [phone] Fred Pryor MD Primary Care Provider [phone] Lacy Alberto GLASS ROBOT OPERATOR Unavailable [phone] Encounter Details Date Type Department Care Team (Late st Contact Info) Description 12/01/2023 Abstract [facility] [address] [facility] [place] [address] Lacy Alberto GLASS ROBOT OPERATOR [address] [place] [address] Social History Tobacco Use Types Packs/Day Years [...] documented as of this encounter Visit Diagnoses Not on filedocumented in this encounter Care Teams Ore Washer Relationship Specialty Start Date End Date Fred Pryor MD PCP - General Family Medicine 11/17/23 Lacy Alberto NP Referring Physician Family Medicine 07/04/22 Lacy Alberto NP Nurse Practitioner Family Medicine 11/17/23 documented as of this encounter
--- OUTSIDE RECORDS SUMMARY | 2025-03-15 07:25 | XMS_ITS | Encounter Summary ---
Author Organization [facility] Address [address] [place] [address] Care Team Providers Care Security Sergeant Name Role Phone Lacy Alberto DIRECTOR PHONE Unavailable [phone] Fred Pryor MD Primary Care Provider [phone] Lacy Alberto DIRECTOR PHONE Unavailable [phone] Encounter Details Date Type Department Care Team (Late st Contact Info) Description 11/18/2023 Clinisync Result Encounter [facility] External Department Unsolicited Lacy Alberto DIRECTOR PHONE [address] [place] [address] Social History Tobacco Use Types Packs/Day Years [...] Name Priority Date/Time Associated Diagnosis Comments XR LUMBAR SPINE 2 OR 3V 11/18/2023 9:40 AM EDT documented in this encounter Results * XR LUMBAR SPINE 2 OR 3V (11/18/2023 9:40 AM EDT) Anatomical Region Laterality Modality Radiographic Alondra ging 11/18/2023 9:40 AM EDT Narrative 11/18/2023 9:43 AM EDT The [address] [address] XRay Report Signed Patient: ESMER BEACH MR#: [id number] : 1970 Acct:[id number] Age/Sex: 53 / F ADM Date: 11/18/23 Loc: RAD Attending Dr: Lacy Alberto DIRECTOR PHONE Ordering Physician: Lacy Alberto NP Date of Service: 11/18/23 Procedure(s): XR lumbar spine 2-3V Accession Number(s): [id number] cc: Lacy Alberto NP [address] [address] Patient Name: ESMER BEACH MRN: [id number] date: 1970 Sex: F Assigned Patient Location: [facility] Current Patient Location: [facility] Accession/Order Number: [id number] Exam Date: 11/18/2023 08:52 Report Date: 11/18/2023 09:40 At the request of: LACY ALBERTO Procedure: XR lumbar spine 2-3V EXAMINATION: XR lumbar spine 2-3V HISTORY: 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 FINDINGS: BONES: Normal alignment with no acute fracture or spondylolisthesis. Mild spondylosis. Moderate facet osteoarthropathy DISC SPACES: Normal. No significant disc height narrowing, subluxation, or endplate abnormality. PARASPINOUS: Negative. No paraspinous abnormality is seen. OTHER: Vascular calcifications XR/XR lumbar spine 2-3V IMPRESSION: Degenerative changes with no acute abnormality Electronically authenticated by: NAHOMY BUCHANAN Date: 11/18/2023 09:40 Dictated By: Nahomy Buchanan M.D. Signed By: 11/18/2343 DD/ 9 TD/TT: Hybrid Derivatives Trader: Procedure Note Radiology, Radiologist, - 11/18/[address] [address] XRay Report Signed Patient: ESMER BEACH MMR#: [id number] : 1970Acct:[id number] Age/Sex: 53 / FADM Date: 11/18/23 Loc: RAD Attending Dr: Lacy Alberto NP Ordering Physician: Lacy Alberto NP Date of Service: 11/18/23 Procedure(s): XR lumbar spine 2-3V Accession Number(s): [id number] cc: Lacy Alberto NP [place] [address] Patient Name: ESMER BEACH MRN: [id number] date: 1970 Sex: F Assigned Patient Location: [facility] Current Patient Location: [facility] Accession/Order Number: [id number] Exam Date: 11/18/2023 08:52 Report Date: 11/18/2023 09:40 At the request of: LACY ALBERTO Procedure: XR lumbar spine 2-3V EXAMINATION: XR lumbar spine 2-3V HISTORY: 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 FINDINGS: BONES: Normal alignment with no acute fracture or spondylolisthesis. Mild spondylosis. Moderate facet osteoarthropathy DISC SPACES: Normal. No significant disc height narrowing, subluxation, or endplate abnormality. PARASPINOUS: Negative. No paraspinous abnormality is seen. OTHER: Vascular calcifications XR/XR lumbar spine 2-3V IMPRESSION: Degenerative changes with no acute abnormality Electronically authenticated by: NAHOMY BUCHANAN Date: 11/18/2023 09:40 Dictated By: Nahomy Buchanan M.D. Signed By:11/18/2343 DD/ 9 TD/TT: Hybrid Derivatives Trader: Lacy Alberto NP IMG XR PROCEDURES Final Result documented in this encounter Visit Diagnoses Not on filedocumented in this encounter Care Teams Security Sergeant Relationship Specialty Start Date End Date Fred Pryor MD PCP - General Family Medicine 11/17/23 Lacy Alberto NP Referring Physician Family Medicine 07/04/22 Lacy Alberto NP Nurse Practitioner Family Medicine 11/17/23 documented as of this encounter
--- OUTSIDE RECORDS SUMMARY | 2025-03-15 07:26 | XMS_ITS | Clinical Summary ---
Author Organization [facility] Address [address] [place] [address] Care Team Providers Care Pit Furnace Melter Name Role Phone Lacy Alberto MATERIAL REQUIREMENTS WORKER Unavailable [phone] Fred Pryor MD Primary Care Provider [phone] Lacy Alberto MATERIAL REQUIREMENTS WORKER Unavailable [phone] Allergies Active Allergy Reactions Criticality Noted Date Comments Atorvastatin Other Medium 03/14/2020 legs Latex Itching Low 10/08/2016 BURNING Metformin Diarrhea,GI intolerance Low 08/29/2019 Metoprolol Dizziness 05/20/2021 Pegademase Bovine Unknown Low 11/04/2016 headache Poractant Adiel Swelling Low 11/04/2016 Wheat GI intolerance Low 11/04/2016 Constipation Medications ARIPiprazole (Abilify) 5 MG tabletIndicatio ns:Bipolar disorder, current episode mixed, mild (HCC) Take 1 tablet (5 mg) by mouth Daily 90 tablet 1 5 Active escitalopram (Lexapro) 10 MG tabletIndicatio ns:Anxiety and depression,Bipo lar disorder, current episode mixed, mild (HCC) Take 1 tablet (10 mg) by mouth Daily 90 tablet 1 5 Active Semaglutide, 2 MG/DOSE, (Ozempic, 2 MG/DOSE,) 8 MG/3ML solution pen-injectorInd ications:Type 2 diabetes mellitus with diabetic polyneuropathy, without long-term current use of insulin (HCC) Inject 2 mg under the skin every 7 (seven) days for 28 days 3 mL 2 5 Active gabapentin (Neurontin) 300 MG capsuleIndicati ons:Neuroforami nal stenosis of spine Take 2 capsules (600 mg) by mouth at bedtime 60 capsule 2 5 Active Continuous Glucose Sensor (FreeStyle Urszula 2 Sensor) miscIndications :Type 2 diabetes mellitus without complication, without long-term current use of insulin (HCC) 1 each by Other route every 14 (fourteen) days for 28 days 2 each 5 03/25/20 Active Continuous Glucose Systems Technician (FreeStyle Urszula 2 [place]) deviceIndicatio ns:Type 2 diabetes mellitus without complication, without long-term current use of insulin (HCC) 1 kit Daily 1 each 5 02/26/20 Active Continuous Glucose Sensor (FreeStyle Urszula 2 Sensor) misc USE DIRECTED to test BLOOD SUGAR change EVERY 14 days 02/26/20 Discontinu ed(Reorder ) Continuous Glucose Systems Technician (FreeStyle Urszula 2 [place]) device 1 kit 1 (one) time each day 02/26/20 Discontinu ed(Reorder ) Active Problems Problem Noted Date Diagnosed Date Neuroforaminal stenosis of spine 10/08/2024 Lumbar stenosis with neurogenic claudication 01/2025 DDD (degenerative disc disease), cervical 2024 Assessment & Plan (10/08/2024 1:26 PM EDT): Reviewed XR cervical spine from 10/26 Saw pain mgmt and was referred to Neurosurgeon Going to have surgeries Cigarette nicotine dependence without complicati on 10/08/2024 Assessment & Plan (01/07/2025 1:47 PM EDT): The patient has been advised of the risks of continued smoking: stroke, DC, all forms of cancer, lung disease, and . Options for quitting smoking include: cold turkey, hypnosis, acupuncture, nicotine replacement meds (gum, lozenges, and patches), Buproprion, and Varenicline. At this time pt is encouraged to evaluate their goals for wanting to quit smoking, and reach out to provider when ready to start this process Assessment & Plan (10/08/2024 6:56 AM EDT): The patient has been advised of the risks of continued smoking: stroke, DC, all forms of cancer, lung disease, and . Options for quitting smoking include: cold turkey, hypnosis, acupuncture, nicotine replacement meds (gum, lozenges, and patches), Buproprion, and Varenicline. At this time pt is encouraged to evaluate their goals for wanting to quit smoking, and reach out to provider when ready to start this process Colon cancer screening 10/08/2024 Assessment & Plan (01/07/2025 1:48 PM EDT): refused Assessment & Plan (10/08/2024 1:27 PM EDT): Colon cancer screening options were discussed with patient, as well as why colon cancer screening is indicated. Options are Colonoscopy: direct visualization, every 10 years (unless indicated more frequently), risks and benefits were discussed Cologuard: every 3 years, risks and benefits were discussed , contraindications were discussed (family hx of colon cancer, colon polyps) Patient has elected to: refuses either Type 2 diabetes mellitus with other specified co mplication 08/06/2024 Type 2 diabetes mellitus with diabetic polyneuro adriel 05/22/2024 Assessment & Plan (01/07/2025 6:45 AM EDT): Recommend good blood glucose control Freq foot examinations or s/s open wounds Proper fitting shoes as well Assessment & Plan (08/06/2024 7:08 AM EST): Recommend good blood glucose control Freq foot examinations or s/s open wounds Assessment & Plan (05/22/2024 9:40 AM EST): Need for tight blood sugar control Encounter for subsequent [facility] wellness visit (AWV) in Medicare patient 05/22/2024 Assessment & Plan (05/22/2024 9:41 AM EST): Reviewed Ht/Wt/BMI Recommend eye exam yearly Recommend dental exams twice a year Balance work/leisure activities Exercises is recommended most days of the week (appropriate as chronic conditions allow) Follow up yearly and prn Anxiety and depression 11/17/2023 Assessment & Plan (01/07/2025 6:44 AM EDT): Current meds lexapro and abilify Assessment & Plan (10/08/2024 1:26 PM EDT): Current meds lexapro and abilify PHQ 9= 7 CARLOS 7= 3 No dose changes Assessment & Plan (08/06/2024 7:10 AM EST): Current meds lexapro and abilify Assessment & Plan (11/17/2023 11:07 AM EDT): Continue on lexapro, no changes in meds Check labs Chronic obstructive pulmonary disease, unspecifi ed 11/17/2023 Assessment & Plan (08/06/2024 7:08 AM EST): Recommend quitting smoking No daily inhaler use Assessment & Plan (05/22/2024 9:40 AM EST): Needs to quit smoking Elevated antinuclear antibody (MIRYAM) level 2023 Gastroesophageal reflux disease without esophagi tis 11/17/2023 Herpes simplex infection 11/17/2023 Cervical spinal stenosis 11/17/2023 Assessment & Plan (10/08/2024 1:25 PM EDT): Continue with spine surgery Assessment & Plan (08/06/2024 6:37 PM EST): Continue with pain mgmt Mixed hyperlipidemia 11/17/2023 Assessment & Plan (05/22/2024 6:20 AM EST): Declines use of statin therapy Advised risk for stroke, DC, without use ROSEMARIE (obstructive sleep apnea) 11/17/2023 Type 2 diabetes mellitus wit hout complication, without long-term current use of insulin 11/17/2023 Assessment & Plan (01/07/2025 1:34 PM EDT): Check blood sugars daily, notify if <70 [...] diet low in carbohydrates, and simple sugars. Current med: ozempic 1mg weekly, A1c 7.8% 01/07/25, 8.8% 08/06/24 ( Finances are tight and cannot afford healthy foods, also Cannot tolerate SGLT -2 or metformin, does not want insulin back again) Assessment & Plan (10/08/2024 6:58 AM EDT): Check blood sugars daily, notify if <70 [...] sugars, has done well with free style urszula in the past, and would like to continue to use Current med: ozempic 1mg weekly, refuses asa/statin/arb/johnny use A1c 8.8% 08/06/24 ( Finances are tight and cannot afford healthy foods, also Cannot tolerate SGLT -2 or metformin, does not want insulin back again) Assessment & Plan (08/06/2024 3:37 PM EST): Check blood sugars daily, notify if <70 [...] sugars, has done well with free style urszula in the past, and would like to continue to use Current med: ozempic, refuses asa/statin/arb/johnny use A1c 8.8% Finances are tight and cannot afford healthy foods Will increase ozempic to 1mg week Cannot tolerate SGLT -2 or metformin, does not want insulin back again Assessment & Plan (05/22/2024 10:53 AM EST): Check blood sugars daily, notify if <70 [...] sugars, has done well with free style urszula in the past, and would like to continue to use Assessment & Plan (11/17/2023 11:06 AM EDT): Is not checking sugars, no meds at this time Check labs and needs eye check Encounter for screening mamm ogram for malignant neoplasm of breast 11/17/2023 Assessment & Plan (10/08/2024 1:27 PM EDT): Recommend mammogram for breast cancer screening Pt refuses Assessment & Plan (11/17/2023 11:06 AM EDT): refused Pain of right hip 11/17/2023 Assessment & Plan (11/17/2023 11:39 AM EDT): Check xray, Offered PT or Pain Mgmt Pt declines, but will check xray History of colon polyps 11/17/2023 Assessment & Plan (11/17/2023 11:03 AM EDT): Was due in late 2021 for repeat colonoscopy It was discussed at today's appt that this needs done She refused Bipolar disorder, current episode mixed, mild Assessment & Plan (01/07/2025 6:45 AM EDT): Current meds: abilify and lexapro No dose changes Assessment & Plan (10/08/2024 1:26 PM EDT): No dose changes Assessment & Plan (08/06/2024 7:10 AM EST): Current meds: lexapro and abilify Assessment & Plan (11/17/2023 11:06 AM EDT): Stable on meds, no changes Check labs Thornwaldt's cyst 10/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 Cervical spondylosis with myelopathy and radicul opathy 09/18/2020 Angina pectoris, unspecified 02/26/2020 Assessment & Plan (05/22/2024 6:17 AM EST): Hx of CAD, no active angina, does not take statin or b christiano, pt declines to take Chest pain due to myocardial ischemia 02/12/2020 Arteriosclerosis of coronary artery 06/15/2018 Assessment & Plan (01/07/2025 1:52 PM EDT): Non compliant with taking asa and crestor I explained reason it should be taken and consequences of not taking this Assessment & Plan (08/06/2024 7:09 AM EST): Not compliant with statin, asa, or b christiano use Assessment & Plan (05/22/2024 6:18 AM EST): Does not take stating therapy, or b christiano, does take ASA Spondylosis of 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 myelopa thy 10/08/2016 Overview (09/10/2024): MRI lumbar spine 09/25 at [facility] Assessment & Plan (10/08/2024 1:26 PM EDT): Was referred to pain mgmt Had XR 10/26 Will have surgery in future Assessment & Plan (08/06/2024 6:39 PM EST): Lengthy discussion with pt about process of: typically conservative treatment: NSAID, muscle relaxers, and PT Then MRI, and then go from there She is open now to see about gabapentin, and I have asked her to reach out to pain mgmt for this Fu in 2 months Assessment & Plan (07/23/2024 7:55 PM EST): OARRS reviewed Will provide a refill of pain medication until seen by pain mgmt Assessment & Plan (05/22/2024 11:07 AM EST): Will obtain updated MRI lumbar d/t decreased [...] She takes them very sparingly OARRS reviewed Assessment & Plan (11/17/2023 11:38 AM EDT): Offered PT or Pain Mgmt Declines at this time Leukocytosis 09/14/2016 Overview (11/17/2023): Persistence since 2015. Has been followed at [facility] intermittently for this problem. Resolved Problems Problem Noted Date Diagnosed Date Resolved Date URI, acute 08/28/2024 10/08/2024 Tobacco use 05/22/2024 10/08/2024 Assessment & Plan (05/22/2024 6:20 AM EST): The patient has been advised of the risks of continued smoking: stroke, DC, all forms of cancer, lung disease, and . Options for quitting smoking include: cold turkey, hypnosis, acupuncture, nicotine replacement meds (gum, lozenges, and patches), Buproprion, and Varenicline. At this time pt is encouraged to evaluate their goals for wanting to quit smoking, and reach out to provider when ready to start this process BMI 32.0-32.9,adult 04/05/2024 05/22/20 24 Diabetes mellitus 06/15/2018 11/17/2023 Encounters Date Type Department Care Team Description 02/25/2025 Refill [facility] [address] [place] [address] Lacy Alberto NP Type 2 diabetes mellitus without complication, without long-term current use of insulin (HCC) (Primary Dx) 02/25/2025 Telephone [facility] [address] [place] [address] Lacy Alberto NP 01/07/2025 1:20 PM EDT Office Visit [facility] [address] [place] [address] Lacy Alberto NP Type 2 diabetes mellitus with diabetic polyneuropathy, without long-term current use of insulin (HCC) (Primary Dx); Type 2 diabetes mellitus without complication, without long-term current use of insulin (HCC); Anxiety and depression ; Bipolar disorder, current episode mixed, mild (HCC); Cigarette nicotine dependence without complication; Colon cancer screening; Encounter for screening mammogram for malignant neoplasm of breast; Neuroforaminal stenosis of spine; Arteriosclerosis of coronary artery 01/07/2025 Bamboo flowsheet [facility] [address] [place] [address] Lacy Alberto NP from Last 3 Months Social History Tobacco Use Types Packs/Day Years Used Date Smoking Tobacco: Every Day Cigarettes Smokeless Tobacco: Never Tobacco Cessation:Ready to Q uit: Not Asked; Counseling Given: Not Answered Alcohol Use Standard Drinks/Week Comments Never 0 (1 standard drink = 0.6 oz pure alcohol) caffine: 2 cups of coffe and 6 soda daily PHQ-2 Answer Date Recorded Patient Health Questionnaire-2 Score 3 05/22/2024 Comments Unknown Sex and Gender Information Value Date Recorded Sex Assigned at Not on file Legal Sex Female 11:08 PM EDT Gender Identity Not on file Sexual Orientation Not on file Last Filed Vital Signs Vital Sign Reading Time Taken Comments Blood Pressure 142/80 01/07/2025 1:25 PM EDT Pulse 84 01/07/2025 1:25 PM EDT Temperature 36.9 C (98.5 F) 01/07/2025 1:25 PM EDT Respiratory Rate 20 01/07/2025 1:25 PM EDT Oxygen Saturation 98% 01/07/2025 1:25 PM EDT Inhaled Oxygen Concentration - - Weight 81.4 kg (179 lb 6.4 oz) 01/07/2025 1:25 P M EDT Height 160 cm (5' 3 ) 08/06/2024 3:11 PM EST Body Mass Index 31.78 08/06/2024 3:11 PM EST Plan of Treatment Health Maintenance Due Date Last Done Comments CT Colonography 1968 FIT-DNA 1968 FIT 1968 FOBT 1968 Sigmoidoscopy 1968 Diabetes: Retinopathy Screening 01/05/1978 Pap Smear 01/05/1989 HPV/Cotest 01/05/1998 Colonoscopy 11/16/2024 Diabetes: Urine Protein Screening 03/23/2025 03/23/2024 Diabetes: Hemoglobin A1C 04/09/2025 025, 08/06/2024, 03/23/2024, Additional history exists Medicare Annual Wellness (AWV) 05/22/2025 05/22/2024, 05/22/2024 Colorectal Cancer Screening 10/08/2025 Postponed from 1968 (Patient Refused) Mammogram 10/08/2025 10/08/2024 (Kyra ent Refused), 11/17/2023 (Patient Refused), 08/31/2022 (Manually Satisfied by [facility]) Cervical Cancer Screening Discontinued Influenza Vaccine Discontinued Procedures Procedure Name Priority Date/Time Associated Diagnosis Comments POCT GLYCOSYLATED HEMOGLOBIN (HGB A1C) Routine 01/07/2025 1:36 PM EDT Type 2 diabetes mellitus without complication, without long-term current use of insulin (HCC) from Last 3 Months Results * (ABNORMAL) POCT glycosylated hemoglobin (Hb A1C) docked device (01/07/2025 1:36 PM EDT) Hemoglobin A1C 7.8 Blood Venous blood specimen / Unknown 01/07/2025 1:36 PM EDT Lacy Barriosloly MATERIAL REQUIREMENTS WORKER POINT OF CARE TEST ENTER/EDIT O RDERABLES Final Result from Last 3 Months Insurance [facility] MEDICARE ADVANTAGE MEDICARE MEDICAID [place] Care Teams Pit Furnace Melter Relationship Specialty Start Date End Date Fred Pryor MD PCP - General Family Medicine 11/17/23 Lacy Alberto NP Referring Physician Family Medicine 07/04/22 Lacy Alberto NP Nurse Practitioner Family Medicine 11/17/23
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
--- OUTSIDE RECORDS SUMMARY | 2025-03-15 07:26 | XMS_ITS | Encounter Summary ---
Author Organization [facility] Address [address] [facility] [place] [address] Care Team Providers Care Payroll And Benefits Specialist Name Role Phone Lacy Alberto APPLE CHECKER Unavailable [phone] Fred Pryor MD Primary Care Provider [phone] Lacy Alberto APPLE CHECKER Unavailable [phone] Encounter Details Date Type Department Care Team (Late st Contact Info) Description 03/26/2024 Orders Only [facility] [address] [facility] [place] [address] Lacy Alberto APPLE CHECKER [address] [place] [address] Social History Tobacco Use Types Packs/Day Years [...] Procedure Name Priority Date/Time Associated Diagnosis Comments SCANNED LABS Routine 03/26/2024 11:46 AM EDT documented in this encounter Results * SCANNED LABS (03/26/2024 11:46 AM EDT) us Lacy Alberto APPLE CHECKER LAB CHG PERFORMABLES Final Resu lt documented in this encounter Visit Diagnoses Not on filedocumented in this encounter Care Teams Payroll And Benefits Specialist Relationship Specialty Start Date End Date Fred Pryor MD PCP - General Family Medicine 11/17/23 Lacy Alberto NP Referring Physician Family Medicine 07/04/22 Lacy Alberto NP Nurse Practitioner Family Medicine 11/17/23 documented as of this encounter
--- OUTSIDE RECORDS SUMMARY | 2025-03-15 07:26 | XMS_ITS | Encounter Summary ---
Author Organization [employer] tem Address [facility] [id number] [address] [place] [address] Care Team Providers Care Inspection Engineer Name Role Phone Juniorcalebloly Lacy Rosemarie GOLDBERG-ASBESTOS SURVEYOR Primary Care Provider Encounter Details Date Type Department Care Team (Late st Contact Info) Description 02/18/2021 Orders Only Airam Rios [facility] - Medical Oncology [address] [place] [address] Ref Prov, [place] [address] Social History Tobacco Use Types Packs/Day Years Used Date Smoking Tobacco: Every Day Cigarettes Smokeless Tobacco: Never Alcohol Use Standard Drinks/Week Comments No 0 (1 standard drink = 0.6 oz pur e alcohol) Social Connection and Isolat ion Panel [NHANES] Answer Date Recorded In a typical week, how many times do you talk on the phone with family, friends, or neighbors? More than three times a week 09/17/2020 How often do you get togethe r with friends or relatives? More than three times a week 09/17/2020 How often do you attend chur ch or rastafari services? Never 09/17/2020 Do you belong to any clubs o r organizations such as catholic groups, unions, fraternal or athletic groups, or school groups? No 09/17/2020 How often do you attend meet ings of the clubs or organizations you belong to? Never 09/17/2020 Are you , , di vorced, , never , or living with a partner? 09/17/2020 AUDIT-C Answer Date Recorded Frequency of Alcohol Consumption Never 07/31/2018 Average Number of Drinks Not on file 019 Frequency of Binge Drinking Not on file 07/05 Overall Financial Resource Strain (CARDIA) Answe r Date Recorded How hard is it for you to pa y for the very basics like food, housing, medical care, and heating? Not hard at all 09/17/2020 PHQ-2 Answer Date Recorded Total Score 0 10/01/2020 [facility] - Occupational Stress Questionnaire Answer Date Recorded Do you feel stress - tense, restless, nervous, or anxious, or unable to sleep at night because your mind is troubled all the time - these days? Only a little 09/17/2020 Exercise Vital Sign Answer Date Recorde d On average, how many days pe r week do you engage in moderate to strenuous exercise (like a brisk walk)? 0 days 09/17/2020 On average, how many minutes do you engage in exercise at this level? 0 min 09/17/2020 PRAPARE - Transportation Answer Date Re corded In the past 12 months, has l ack of transportation kept you from medical appointments or from getting medications? No 09/01 In the past 12 months, has l ack of transportation kept you from meetings, work, or from getting things needed for daily living? No 09/17/2020 Childcare Answer Date Recorded Do problems getting child ca re make it difficult for you to work or study? No 09/17/2020 Employment Answer Date Recorded Do you need help finding a [facility] career [facility] and/or a training program? No 09/17/2020 Purpose - Life Answer Date Recorded I have a purpose and direction in my life. Stron gly Agree 09/17/2020 Comments No Sex and Gender Information Value Date Recorded Sex Assigned at Not on file Legal Sex Female 3:21 PM EDT Gender Identity Not on file Sexual Orientation Not on file COVID-19 Exposure Response Date Recorded In the last month, have you been in contact with someone who was confirmed or suspected to have Coronavirus / COVID-19? No / Unsure 01/27/2021 10:57 AM EDT documented as of this encounter Plan of Treatment Upcoming Encounters Date Type Department Care Team (Late st Contact Info) Description 04/23/2025 12:15 PM EDT Office Visit [facility] [address] [place] [address] Billy Caruso MD [address] [place] [address] Obie Mitchell MD [address] [place] [facility] [place] [id number] documented as of this encounter Goals Goal Patient Goal Type Associated Problems Recent Progress Patient-Stated? Author home General Yes Thais Diaz LSW Note: Evaluation of progress towards goal: feeling much better, moving well with therapy documented as of this encounter Procedures Procedure Name Priority Date/Time Associated Diagnosis Comments MULTIPLE LABS Routine 02/18/2021 documented in this encounter Results * Multiple labs (02/18/2021) us Not In System Ref Prov AR IMAGING Final Res ult documented in this encounter Visit Diagnoses Not on filedocumented in this encounter Additional Health Concerns Infection Onset Date Last Indicated Resolved Time COVID-19 Positive 12/29/2021 12/29/2021 01/19/2022 11:13 PM EDT Assessment Noted Time PHQ-9 Depression Total Score: 0 10/02/19 21 1:36 PM EDT documented as of this encounter Care Teams Inspection Engineer Relationship Specialty Start Date End Date Lacy Alberto, COMMISSIONED SECURITY OFFICER-ASBESTOS SURVEYOR PCP - General Nurse Practitioner 12/30/16 documented as of this encounter
--- OUTSIDE RECORDS SUMMARY | 2025-03-15 07:26 | XMS_ITS | Encounter Summary ---
Author Organization [facility] Address [id number] [address] [place] [address] Care Team Providers Care Credit Advisor Name Role Phone JuniorLacy mann Rosemarie COMBSN-ADVERTISING OPERATIONS COORDINATOR Primary Care Provider Reason for Visit * Reason Comments Med Refill Encounter Details Date Type Department Care Team (Late st Contact Info) Description 09/15/2021 Refill [facility] [address] [place] [address] Jeniffer Varghese, YESSICA [address] [place] [address] Med Refill Social History Tobacco Use Types Packs/Day Years [...] often do you attend chur ch or pentecostal services? Never 09/17/2020 Do you belong to any clubs o r organizations such as hindu groups, unions, fraternal or athletic groups, or [...] PHQ-2 Answer Date Recorded Total Score 0 05/20/2021 [facility] - [...] Recorded Do you need help finding a [facility] career center and/or a training program? No [...] Exposure Response Date Recorded In the last 10 days, have yo u been in contact with someone who was confirmed or suspected to have Coronavirus/COVID-19? No / Unsure 09/09/2021 1:59 PM EST documented as of this encounter Miscellaneous Notes * Telephone Encounter - Maru Cote LPN - 09/15/2021 9:50 AM EDT Med DC on 06/30/2021 documented in this encounter Plan of Treatment Upcoming Encounters Date Type Department Care Team (Late st Contact Info) Description 04/23/2025 12:15 PM EDT Office Visit [facility] [address] [place] [id number] Billy Caruso MD [address] [place] [address] Obie Mitchell MD [address] [place] [facility] [place] [address] documented as of this encounter Goals Goal Patient Goal Type Associated Problems Recent Progress Patient-Stated? Author home General Yes Thais Diaz LSW Note: Evaluation of progress towards goal: feeling much better, moving well with therapy documented as of this encounter Visit Diagnoses Not on filedocumented in this encounter Additional Health Concerns Infection Onset Date Last Indicated Resolved Time COVID-19 Positive 12/29/2021 12/29/2021 01/19/2022 11:13 PM EDT Assessment Noted Time PHQ-9 Depression Total Score: 0 05/20/20 21 10:21 AM EST documented as of this encounter Care Teams Credit Advisor Relationship Specialty Start Date End Date Lacy Alberto, [employer] INTERNSHIP-ADVERTISING OPERATIONS COORDINATOR PCP - General Nurse Practitioner 12/30/16 documented as of this encounter
--- OUTSIDE RECORDS SUMMARY | 2025-03-15 07:26 | XMS_ITS | Encounter Summary ---
[facility] Address [id number] [address] [place] [address] Care Team Providers Care [facility] Name Role Phone Natty Albertoa Rosemarie COMBSN-OPTOMETRIC TECHNOLOGIST Primary Care Provider Encounter Details Date Type Department Care Team (Late st Contact Info) Description 05/13/2021 Telephone [facility] [address] [facility] [address] [place] [address] Nathalie Handy MA Social History Tobacco Use Types Packs/Day Years [...] often do you attend chur ch or muslim services? Never 09/17/2020 Do you belong to any clubs o r organizations such as moravian groups, unions, fraternal or athletic groups, or [...] Answer Date Recorded Total Score 0 10/01/2020 [facility] [place] of Occupat ional Health - Occupational Stress [...] Recorded Do you need help finding a [facility] career center and/or a training program? [...] have Coronavirus / COVID-19? No / Unsure 05/05/2021 10:49 AM EDT documented as of this encounter Miscellaneous Notes * Telephone Encounter - Nathalie Handy MA - 05/13/2021 8:52 AM EST Left vm to schedule new patient. DIAGNOSIS: POSITIVE MIRYAM documented in this encounter Plan of Treatment Upcoming Encounters Date Type Department Care Team (Late st Contact Info) Description 04/23/2025 12:15 PM EDT Office Visit [facility] [address] [place] [id number] Billy Caruso MD [address] [place] [address] Obie Mitchell MD [address] [place] [facility] [place] [phone] documented as of this encounter Goals Goal [...] documented as of this encounter Care Teams [facility] Relationship Specialty Start Date End Date Lacy Alberto, NASCAR RACER-OPTOMETRIC TECHNOLOGIST PCP - General Nurse Practitioner 12/30/16 documented as of this encounter
--- OUTSIDE RECORDS SUMMARY | 2025-03-15 07:26 | XMS_ITS | Patient Health Record ---
Author Organization [facility] Address [address] [place] [address] Care Team Providers Care Pharmacy Cashier Name Role Phone [facility] Marinaangusprimo Unavailable [phone] Lynsey PATEL, Vaishnavi Unavailable Unavailab Cade Gonzales Unavailable [phone] Cat Fontana Unavailable Allergies Allergen (clinical drug ingredient) Drug/Non Drug Allergy documented on EMR Reaction Allergy Type Onset Date Status Latex latex (uncoded) Unknown Allergy Acti ve metformin metFORMIN Unknown Drug Allergy Active Results Component Value Reference Range Notes Surgery Scheduling (Not yet reviewed by provider) Interpretation: Performing Lab: Notes/Report: Primary Insurance Company: MEDICARE ANTHEM ADVANTAGE Surgeon/Assist: [facility]/RONNI OR CADE Surgery Location: [facility] Surgery Date & Time: 03/26/25 @ 7:30AM Hosp arrival time day of: 5:30AM Surgery End Time: 9:30AM Procedure: C5-7 ACDF Special Equipment: SSEP, SUPINE, OR TAB LE, SURGALIGN Diagnosis: M48.02 STENOSIS Admission Type: OUTPATIENT Anesthesia Type/CPNB: GENERAL Post-op Appointment Date: 05/09/25 @ 8:50AM MAT Latex Allergy YES Lab Location: Lab Date/Time: LURDES Instructor Pilot: NATE Mullins Physician: CARDIOLOGY- LEEROY MALDONADO FORM FAXED Clearance Appt Date/T LUCIA CARL TO CARDIOLOGY History & Physical Appointme nt Date/: @ 9:10AM MAT Reason For Referral Reason APPROVED..............................03/26/25.............................[facility] C5-7 ACDF 35034, 37094, , Diagnos is 1 Cervical spinal stenosis (M48.02) Referra l [facility] Referri ng Provide r First Name Obdulio Referdana wood Provide r Last Name [facility] Shelli wood Provide r Special ity Orthopedic Surgery Referre d [facility] Referre d Address [address] [place], [place],[address] 214,[place] Procedu re 1 Arthrodesis, anterior interbody, includi ng disc space prep, discectomy, osteophytectomy & decompression of spinal cord and/or nerve roots, cervical below C2 () Procedu re 2 Arthrodesis, cervical below C2 each add' l interspace () Procedu re 3 Anterior instrumentation; 2-3 vertebral segments () Procedu re 4 Allograft for spine surgery only; struct ural () General Notes Nate Hein 10/09/2024 01:33:39 PM >, Ciara Brown 10/09/2024 03:12:59 PM > AUTHORIZATION REQUEST SUBMITTED WITH CLINICALS VIA AIM, PENDING AUTHORIZATION # [id number] WITH ANTICIPATED DETERMINATION DATE OF 10/19/24., Ciara Brown 10/10/2024 07:37:00 AM > PENDING PER AIM., Ciara Brown 10/12/2024 10:46:58 AM > CASE STILL PENDING PER AIM., Ciara Brown 10/15/2024 07:22:02 AM > PENDING PER AIM., Ciara Brown 10/16/2024 10:19:47 AM > PENDING WITH AIM STILL., Ciara Brown 10/17/2024 11:50:14 AM > PENDING PER AIM. ADDITIONAL INFORMATION NEEDED PER PORTAL , More Information Required: 77429 Anterior Instrumentation 2-3 Vertebral Segments -The notes do not show that the primary procedure meets requirements for approval. Arthrd Ant Interbody Decompress Cervical Belw C2 C5-C6 Arthrd Ant Interdy Cervcl Belw C2 Ea Addl Ntrspc C6-C7 -The notes do not show cord compression or nerve root compression or at least moderate central/lateral recess or foraminal stenosis from the presence of one or more of the following: herniated nucleus pulposus, narrowing of the intervertebral disc, disc osteophytes, facet, Nate Hein 10/17/2024 12:58:02 PM >PRINTED FOR REVIEW, Nate Hein 10/18/2024 08:47:57 AM >PER SFS THEY ARE ONLY WANTING HIM TO DO 1 LEVEL, 86761. IS THIS APPROVED AND IF SO HER WILL JUST DO THE 1 LEVEL, Ciara Brown 10/18/2024 08:59:29 AM > MRI REPORT STARRED AND UNDERLINED SHOWING MODERATE STENOSIS AT C5-C6 LEVEL UPLOADED TO AIM AND ALSO NOTED ON CASE., Ciara Brown 10/19/2024 12:05:35 PM > CASE STILL PENDING PER AIM., Ciara Brown 10/22/2024 09:54:12 AM > AUTHORIZATION REQUEST DENIED PER AIM. [place] Your doctor wants to do surgery to remove a portion of your bone in your neck. Your doctor also wants to join the bones in your neck. This surgery is needed when all required criteria are met. This surgery is needed when you have pressure on the bundle of nerves in your neck. This bundle of nerves is known as the spinal cord. You need to have special pictures of your neck. These pictures could be an MRI or CT scan. The pictures should show signs of pressure on the spinal cord. We reviewed the notes we received. The notes do not show that you had these special pictures and that they match the requested level for surgery. For this reason, this surgery is not medically necessary. We used Medicare Local Coverage Determination (LCD): Cervical Fusion ([id number]) and Medicare Local Coverage Article: Billing and Coding: Cervical Fusion ([id number]) to make this decision. SCANNED INTO CHART. P2P NOT AVAILABLE SINCE THIS IS A MEDICARE ADVANTAGE PLAN. ONLY OPTION IS TO APPEAL WITH [employer]., Nate Hein 10/22/2024 11:08:51 AM >PRINTED FOR REVIEW, Nate Hein 10/25/2024 08:16:34 AM >PER SFS FILE APPEAL, Ciara Brown 10/25/2024 08:22:23 AM > I NEED LMN THEN TO APPEAL I DON'T HAVE ANY NEW CLINICALS TO SUBMIT., Nate Hein 11/19/2024 07:46:31 AM >LMN IN THE CHART, Ciara Brown 11/19/2024 08:20:18 AM > APPEAL REQUEST FAXED WITH CLINICALS TO [facility] @ [phone], Ciara Brown 11/19/2024 12:27:36 PM > RECEIVED CALL FROM LIZETTE @ [facility] ADVISING THAT THEY DID RECEIVE APPEAL REQUEST, HOWEVER THEIR CLINICAL TEAM STATES IT DOESN'T MEET EXPEDITED CRITERIA AND CASE HAS BEEN DOWNGRADED TO STANDARD LEVEL APPEAL. TURN AROUND TIME CAN TAKE UP TO 30 DAYS FOR REVIEW AND DETERMINATION TO BE MADE BUT SHE STATED THAT THEY DON'T NORMALLY TAKE THAT LONG FOR DETERMINATIONS., Ciara Brown 11/20/2024 02:10:13 PM > STILL SHOWING DENIED PER [employer]., Ciara Brown 11/21/2024 07:47:59 AM > STILL SHOWING DENIED ON [facility]., Ciara Brown 11/28/2024 07:10:05 AM > CASE STILL SHOWING DENIED PER [employer]., Ciara Brown 12/05/2024 07:51:03 AM > CASE IS STILL SHOWING DENIED PER [employer]. WE HAVEN'T REACHED 30 DAYS YET FROM WHEN I SPOKE WITH LIZETTE AT [facility], HOWEVER IT'S LOOKING LIKE APPEAL IS PROBABLY GOING TO BE DENIED THEY HAVEN'T MADE A DETERMINATION YET., Ciara Brown 12/12/2024 07:48:43 AM > CASE STILL SHOWING DENIED PER [employer]. APPEAL WAS FAXED ON 11/19/24 SO WE HAVEN'T HIT 30 DAYS YET., Ciara Brown 12/19/2024 07:32:36 AM > SURGERY FINALLY SHOWING APPROVED PER [employer] UNDER AUTHORIZATION # [id number] AND VALID 11/08/24-03/20/25. PLEASE GET PATIENT BACK ON SCHEDULE FOR [facility] AND SEND BACK TO ME., Nate Hein 12/19/2024 08:31:00 AM >WE NO LONGER ARE GONG TO [facility]. I WILL CALL PATIENT AND SEE IF SHE WANTS TO HAVE DONE AT [facility], Ciara Brown 12/19/2024 09:34:51 AM > I KNOW WE AREN'T GOING TO THE [facility] OFFICE, BUT ARE YOU GUYS NO LONGER DOING PROCEDURES AT [facility]? PATIENTS ARE STILL GOOD TO GO TO THE HOSPITAL., Nate Hein 12/19/2024 09:43:37 AM >NO, BECAUSE WE DO NOT ANYONE TO ROUND ON THE PATIENTS. ALL PATIENTS WILL HAVE TO COME TO [facility] OR [facility] FOR SURGERY, Ciara Brown 12/19/2024 09:48:29 AM > OK NOTED, THANK YOU. PLEASE LET ME KNOW FOR SURE WHERE SHE IS ENDS UP GETTING SCHEDULED AT AND I WILL UPDATE AUTHORIZATION., Radha Heinn 12/19/2024 02:39:36 PM >SURGERY SCHEDULE AND MOVED OUT TO 03/26 AT [facility], Ciara Brown 12/19/2024 02:57:22 PM > I WILL HAVE TO RESUBMIT AUTHORIZATION REQUEST THEN CURRENT AUTH EXPIRES ON 03/20/25., Ciara Brown 02/26/2025 09:39:41 AM > [place] [address] PER [facility]IM. AUTHORIZATION REQUEST SUBMITTED FOR ALL OTHER CODES WITH CLIN[facility]ALS [facility], PENDING AUTHORIZATION # [id number] WITH ANTICIPATED DETERMINATION DATE OF 03/08/25., Ciara Brown 02/27/2025 09:47:14 AM > PENDING PER AIM., Ciara Brown 03/06/2025 08:58:47 AM > PENDING WITH [facility]IM STILL., Ciara Brown 03/08/2025 12:43:38 PM > AUTHORIZATION # [id number] APPROVED AND VALID 03/26/25-06/23/25 PER [facility]IM. SCANNED INTO CHART AND FAXED TO [facility]. Referra l Priorit y Routine Medications Medication SIG (Take, Route, Frequency, Duration) Notes Start Date End Date Status Ozempic Active Lexapro Active Abilify Active gabapentin Active Percocet Active Problems Problem Type SNOMED Code ICD Code Onset Dates Problem Status W/U Status Risk Notes Problem 10232661 Cervical spinal stenosis (M48.02) Active confirmed Problem 76865019 Radiculopathy, cervical region (M54.12) Active confirmed Problem 426823690 Spinal stenosis, lumbosacral region (M48.07) Active confirmed Problem 60516690 Other cervical d isc degeneration at C5-C6 level (M50.322) Active confirmed Problem 34193764 Other cervical d isc degeneration at C6-C7 level (M50.323) Active confirmed Problem 11472683 Degeneration of intervertebral disc of lumbosacral region with discogenic back pain and lower extremity pain (M51.372) Active confirmed Procedures Procedure Date Ordered Date Performed Result Body Sit e EKG 02/13/2025 N/A Encounters Encounter Location Date Provider Diagnosis [facility] Office [address] [facility] [place] [address] 10/05/2024 [facility] Spinal stenosis, lumbosacral region M48.07 ; Degeneration of intervertebral disc of lumbosacral region with discogenic back pain and lower extremity pain M51.372 ; Cervical spinal stenosis M48.02 ; Radiculopathy, cervical region M54.12 ; Other cervical disc degeneration at C5-C6 level M50.322 and Other cervical disc degeneration at C6-C7 level M50.323 [place] [address] [place] [address] 11/17/2024 Cade Hicks [place] [address] [place] [address] 02/13/2025 Selsudheer RizzoRose Radiculopathy, cervical region M54.12 ; Other cervical disc degeneration at C5-C6 level M50.322 ; Other cervical disc degeneration at C6-C7 level M50.323 and Cervical spinal stenosis M48.02 Assessments Encounter Date Diagnosis (ICD Code) Assessment Notes Treatment Notes Treatment Clinical Notes Section Notes 10/05/2024 Spinal stenosis, lumbosacral region (ICD-10 - M48.07) 1. L5-S1 NFS 2. L4-S1 stenosis/D DD/radicul opathy 3. C5-7 stenosis/r adiculopat hy/DDD/NFS 10/05/2024 Degeneration of intervertebral disc of lumbosacral region with discogenic back pain and lower extremity pain (ICD-10 - M51.372) 1. L5-S1 NFS 2. L4-S1 stenosis/D DD/radicul opathy 3. C5-7 stenosis/r adiculopat hy/DDD/NFS 02/13/2025 Radiculopathy, cervical region (ICD-10 - M54.12) 02/13/2025 Other cervical disc degeneration at C5-C6 level (ICD-10 - M50.322) 10/05/2024 Cervical spinal stenosis (ICD-10 - M48.02) 1. L5-S1 NFS 2. L4-S1 stenosis/D DD/radicul opathy 3. C5-7 stenosis/r adiculopat hy/DDD/NFS 10/05/2024 Radiculopathy, cervical region (ICD-10 - M54.12) 1. L5-S1 NFS 2. L4-S1 stenosis/D DD/radicul opathy 3. C5-7 stenosis/r adiculopat hy/DDD/NFS 02/13/2025 Other cervical disc degeneration at C6-C7 level (ICD-10 - M50.323) 02/13/2025 Cervical spinal stenosis (ICD-10 - M48.02) 10/05/2024 Other cervical disc degeneration at C5-C6 level (ICD-10 - M50.322) 1. L5-S1 NFS 2. L4-S1 stenosis/D DD/radicul opathy 3. C5-7 stenosis/r adiculopat hy/DDD/NFS 10/05/2024 Other cervical disc degeneration at C6-C7 level (ICD-10 - M50.323) 1. L5-S1 NFS 2. L4-S1 stenosis/D DD/radicul opathy 3. C5-7 stenosis/r adiculopat hy/DDD/NFS 10/05/2024 Other Plan established by Dr. Coles. Patient evaluated by myself and Dr. Coles today. We did review patient's MRI results with her and Dr. Coles is recommending a C5-7 anterior cervical discectomy and fusion first. He is also recommending an L5-S1 decompression and fusion. It was discussed with patient that fusion is necessary due to the fact that total facetecetomy's would need to be performed In order to free up the foraminal stenosis. This would lead to instability requiring a fusion. Surgical risks and benefits were discussed. Risks include, but are not limited to paralysis, infection, dural tear, nerve root injury, nonunion, etc. Patient would like to proceed with surgical intervention. Patient will need cardiac/medical clearance prior to surgery. We will see her back in the office prior to surgical date after clearance. The patient is very much in agreement with the treatment and/or diagnostic plan set forth and all questions were answered to the patient's satisfaction. Thanks once again. If we can be of further service to your patients with disorders of the spine, cervical, thoracic, or lumbar, please do not hesitate to contact Dr. Coles. Best regards, 1. L5-S1 NFS 2. L4-S1 stenosis/D DD/radicul opathy 3. C5-7 stenosis/r adiculopat hy/DDD/NFS Plan Of Treatment Pending Test Test Name Order Date Chest 2 views - [id number] 02/13/2025 Lumbar spine, 4v flex ext - 04402 2024 Cervical spine,ap,lat,flex,ext - 25459 0 10/05/2024 CBC 02/13/2025 HGB A1C 02/13/2025 PT/PTT 02/13/2025 BMP 02/13/2025 Surgery Scheduling 10/09/2024 MRSA (Bilateral Nares) PCR 02/13/2025 SFS - Lumbar Spine PT Order, Isometrics & Strenghening w/Modalities as needed, 2-3 times per week for 6 weeks 10/05/2024 SFS - Cervical Spine PT Orde r, Isometrics & Strenghening w/Modalities as needed. 2-3 x Week for 4-6 Weeks 10/05/2024 EKG 02/13/2025 Future Test Test Name Order Date Chest 2 views - [id number] 10/09/2024 CBC 10/09/2024 HGB A1C 10/09/2024 PT/PTT 10/09/2024 BMP 10/09/2024 MRSA (Bilateral Nares) PCR 10/09/2024 EKG 10/09/2024 Next Appt Details Provider Name:Obdulio Rizzo Cl air, 03/21/2025 09:10:00 AM, [address] [place], [address], Provider Name:Obdulio Olson St [facility], 03/26/2025 07:30:00 AM, [address] [place], [place], [id number], Provider Name:Selvon Wesley Casas, 05/09/2025 08:50:00 AM, [address] [place] [address], [place], [address], Insurance Providers Payer Name Payer Address Payer Phone Subscriber Number Group Number Insured Name Patient Relationship to Insured Coverage Start Date Coverage End Date Medicare [employer] [address] [place] [address] [id number] [facility] [place] Self - patient is the insured 5 [place] [employer] [address] [place] [address] [id number] [place] Self - patient is the insured 5 Medical (General) History Medical History History ICD Code Heart Stents Bronchitis Diabetes Gastric Reflux Irritable bowel syndrome Kidney stones Ovarian Cysts Anxiety Depression Seen a Psychiatrist
--- OUTSIDE RECORDS SUMMARY | 2025-03-15 07:26 | XMS_ITS | Clinical Summary ---
Author Organization [facility] Address [id number] [address] [place] [address] Care Team Providers Care Insurance Consultant Name Role Phone Juniorcalebloly Lacy Rosemarie COMBSN-CASTING TECHNICIAN Primary Care Provider Allergies Active Allergy Reactions Criticality Noted Date Comments Atorvastatin muscle cramps,Other (See Comments) Medium 03/14/2020 legs Latex, Natural Rubber Itching Low 10/08/2016 BURNING Metformin Diarrhea,Vomiting,GI Disturbance Low 08/29/2019 Metoprolol Dizziness 05/20/2021 Medications insulin glargine (LANTUS, BASAGLAR) 100 unit/mL (3 mL) insulin penIndications:t ype 2 diabetes mellitus Inject 50 Units under the skin in the morning. Indications: type 2 diabetes mellitus. Active pediatric multivitamin no.136 (CHILDREN MULTIVITAMIN) tablet,chewable Chew and swallow daily. Active semaglutide (OZEMPIC) 0.25 mg or 0.5 mg(2 mg/1.5 mL) pen injector Inject 0.75 mg under the skin every 7 days. Pt takes on ' Active nitroglycerin (NITROSTAT) 0.4 MG SL tablet 1 under the tongue as needed for angina, may repeat q5mins for up three doses 25 tablet 3 1 Active Additional Information Patient not taking.Reported on 10/18/2024 famotidine (PEPCID) 20 mg tablet Take 20 mg by mouth in the morning. 1 Active escitalopram (LEXAPRO) 10 mg tablet Take 1 tablet (10 mg total) by mouth in the morning. 2 Active FREESTYLE JOSE 14 DAY SENSOR kit 2 Active ARIPiprazole (ABILIFY) 5 mg tablet Take 1 tablet (5 mg total) by mouth in the morning. 2 Active oxyCODONE-acetam inophen (PERCOCET) 5-325 mg per tablet Take 1 tablet by mouth every 4 (four) hours as needed for pain. Active prednisoLONE (PRELONE) 15 mg/5 mL syrup Take 10 mL PO QD x 5 days 50 mL 2 Active Additional Information Patient not taking.Reported on 10/18/2024 promethazine (PHENERGAN) 6.25 mg/5 mL syrup Take 15-20 mL by mouth every 4-6 hours as needed for nausea vomiting 200 mL 2 Active Additional Information Patient not taking.Reported on 10/18/2024 naloxone (NARCAN) 4 mg/actuation spray,non-aeroso l nasal spray Administer 1 spray (4 mg total) into alternating nostrils as needed for opioid reversal. 1 each 1 2 Active Additional Information Patient not taking.Reported on 10/18/2024 gabapentin (NEURONTIN) 300 mg capsule Take 1 capsule (300 mg total) by mouth 3 (three) times a day. Active rosuvastatin (CRESTOR) 10 mg tabletIndication s:Pre-op testing Take 1 tablet (10 mg total) by mouth in the morning. 5 Active aspirin 81 mgIndications:Pr e-op testing Take 1 tablet (81 mg total) by mouth in the morning. 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 Has been followed at [facility] intermittently for this problem. Rotator cuff arthropathy of right shoulder 09/18 Right sided weakness 09/17/2020 Pure hypercholesterolemia 03/31/2020 Class 2 obesity in adult 02/26/2020 Angina pectoris 02/26/2020 Coronary artery disease invo lving habematolel coronary artery of habematolel heart 02/12/2020 Chest pain due to myocardial ischemia 02/12/2020 Dehydration 08/29/2019 Lumbosacral spondylosis without myelopathy 08/11 Overview (08/11/2017): Added automatically from request for surgery [id number] Disorder of sacrum 03/31/2017 Overview (03/31/2017): Added automatically from request for surgery [id number] Spondylosis without myelopat hy or radiculopathy, lumbosacral region 10/08/2016 Encounters Date Type Department Care Team Description 02/20/2025 Telephone [facility] [address] [place] [address] Anne Velasquez RN Surgical Or Dental Clearance from Last 3 Months Family History Medical History Relation Name Comments Diabetes Father Heart disease Father Cancer Mother Heart disease Mother Mental illness Mother Mental illness Sister Diabetes Son 1 Relation Name Status Comments Father Mother Alive Sister Alive Son 1 Alive Son 2 Alive Social History Tobacco Use Types Packs/Day Years Used Date Smoking Tobacco: Every Day Cigarettes Smokeless Tobacco: Never Tobacco Cessation:Ready to Q uit: Not Asked; Counseling Given: Not Answered Alcohol Use Standard Drinks/Week Comments No 0 [...] often do you attend chur ch or baptism services? Never 09/17/2020 Do you belong to any clubs o r organizations such as islam groups, unions, fraternal or athletic groups, or [...] Answer Date Recorded Total Score 0 05/20/2021 [facility] Health - Occupational Stress Questionnaire Answer Date [...] Recorded Do you need help finding a l ocal career center and/or a training program? No 09/17/2020 Hunger Screening Answer Date Recorded Within the past 12 months we worried whether our food would run out before we got money to buy more. Never True 10/18/2024 Within the past 12 months th e food we bought just didn't last and we didn't have money to get more. Never True 10/18/2024 Purpose - Life Answer Date Recorded I have a purpose and direction in my life. Stron gly Agree 09/17/2020 Comments No Sex and Gender Information Value Date Recorded Sex Assigned at Not on file Legal Sex Female 3:21 PM EDT Gender Identity Not on file Sexual Orientation Not on file Last Filed Vital Signs Vital Sign Reading Time Taken Comments Blood Pressure 124/78 10/18/2024 10:09 AM EDT Pulse 100 10/18/2024 10:09 AM EDT Temperature 36.1 C (97 F) 01/21/2022 9:47 AM EDT Respiratory Rate 11 01/21/2022 11:00 AM EDT Oxygen Saturation 94% 10/18/2024 10:09 AM EDT Inhaled Oxygen Concentration - - Weight 87 kg (191 lb 12.8 oz) 10/18/2024 10:09 A M EDT Height 160 cm (5' 3 ) 10/18/2024 10:09 AM EDT Body Mass Index 33.98 10/18/2024 10:09 AM EDT Plan of Treatment Upcoming Encounters Date Type Department Care Team (Late st Contact Info) Description 04/23/2025 12:15 PM EDT Office Visit [facility] [address] [place] [phone] Billy Caruso MD [address] [place], [place] [id number] Obie Mitchell MD [address] [place] [facility] [place] [id number] Health Maintenance Due Date Last Done Comments Tobacco Counseling 1968 Depression Screening 1980 Adult BMI Follow Up Plan 01/05/1986 DTaP,Tdap and Td Vaccines (1 - Tdap) 01/05/1987 Zoster (Shingles) Vaccine (1 of 2) 01/05/2018 Influenza Vaccine 03/04/2025 Adult BMI Screening 10/18/2025 10/18/2024 Tobacco Screening 10/29/2025 10/29/2024 Goals Goal Patient Goal Type Associated Problems Recent Progress Patient-Stated? Author home General Yes Thais Diaz LSW Note: Evaluation of progress towards goal: feeling much better, moving well with therapy Medical Devices Implanted Type Area Senior Benefits Manager Device Identifier Shelf Expiration Date Model / Serial / Lot Avel Xience Mora 3.5x15 Rx - [id number] Implanted:Qty : 1 on 03/13/2020 by Rebecca Quinones MD at [facility] Stent N/A: Arterial [employer] [id number] 08/28/2020 [id number] / / [id number] Avel Xience Mora 3.5x8 Rx - [id number] Implanted:Qty : 1 on 03/13/2020 by Rebecca Quinones MD at [facility] Stent N/A: Arterial [employer] [id number] 08/22/2020 [id number] / / [id number] Avel Xience Mora 3x15 Rx - [id number] Implanted:Qty : 1 on 03/13/2020 by Rebecca Quinones MD at [facility] Stent N/A: Arterial [employer] [id number] 09/18/2020 [id number] / / [id number] Insurance [place] MEDICARE Advance Directives * Full Code (Latest Code Status on File) Date Activated Date Inactivated Comments 09/17/2020 8:38 PM 09/18/2020 8:20 PM * Full Code Date Activated Date Inactivated Comments 08/30/2019 8:52 AM 08/31/2019 2:42 PM Care Teams Insurance Consultant Relationship Specialty Start Date End Date Lacy Alberto, DIGITAL MARKETING CONSULTANT-CASTING TECHNICIAN PCP - General Nurse Practitioner 12/30/16
--- OUTSIDE RECORDS SUMMARY | 2025-03-15 07:27 | XMS_ITS | CCD ---
Author Organization [facility] Care Team Providers Care Relay Dispatcher Name Role Phone AICHHOLZ, PERMACULTURE DESIGNER LACY Admitting Unavailable AICHHOLZ, PERMACULTURE DESIGNER LACY Attending Unavailable AICHHOLZ, PERMACULTURE DESIGNER LACY Primary Care Unavailable DR NAHOMY BUCHANAN V Consulting Unavailable AICHHOLZ, PERMACULTURE DESIGNER LACY Consulting Unavailable AICHHOLZ, PERMACULTURE DESIGNER LACY Admitting Unavailable AICHHOLZ, PERMACULTURE DESIGNER LACY Attending Unavailable AICHHOLEddie, PERMACULTURE DESIGNER LACY Primary Care Unavailable AICHHOLZ, PERMACULTURE DESIGNER LACY Consulting Unavailable AICHHOLZ, PERMACULTURE DESIGNER LACY Admitting Unavailable AICHHOLZ, PERMACULTURE DESIGNER LACY Attending Unavailable AICHHOLZ, PERMACULTURE DESIGNER LACY Primary Care Unavailable AICHHOLZ, PERMACULTURE DESIGNER LACY Primary Care Unavailable ERIC SKINNER Admitting Unavailable ERIC SKINNER Attending Unavailable RAFAELA ., DRAGAN AGUILERA Consulting Unavailabl e ERIC SKINNER Consulting Unavailable CASSIE BACK Consulting Unavailable Aichholz POWDER WORKER, Lacy Unavailable Fred Pryor MD Primary Care Provider [phone] Aichholeddie POWDER WORKER, Lacy Unavailable Aichloly GOLDBERG-Lacy BAILON Primary Care Provider BOUMEGOUAS, MANEL Attending Unavailable AICHHOLZ, LACY J Referring Unavailable AICHHOLZ, LACY J Primary Care Unavailable BOUMEGOUAS, MANEL Attending Unavailable BOUMEGOUAS, MANEL Referring Unavailable AICHHOLZ, LACY J Primary Care Unavailable BOUMEGOUAS, MANEL Attending Unavailable BOUMEGOUAS, MANEL Referring Unavailable AICHHOLZ, LACY J Primary Care Unavailable BOUMEGOUAS, MANEL Attending Unavailable BOUMEGOUAS, MANEL Referring Unavailable AICHHOLZ, LACY J Primary Care Unavailable AICHHOLZ, LACY Attending Unavailable AICHHOLZ, LACY Attending Unavailable AICHHOLZ, LACY Attending Unavailable AICHHOLZ, LACY Attending Unavailable Roya PATEL, [facility] Unavail able Lynsey PATEL, Andrius Vytautgerson Attending Unavailable St Falguni PATEL, Obdulio Olson Attending Unavailabl e Roya PATEL, [facility] Unavail able Roya PATEL, [facility] Unavail able Lynsey PATEL, Andrius Vytautas Attending Unavailable Roya PATEL, [facility] Unavail able Lynsey PATEL, Andrius Vytautas Attending Unavailable Roya PATEL, [facility] Unavail able Lynsey PATEL, Andrius Vytautgerson Attending Unavailable Allergies Allergy Classification Reported Allergen(s) Allergy Type Date of Onset Reaction(s) Facility (2 sources) Latex; Translations: [Latex] Drug allergy (disorder) 5 [facility] (20 sources) atorvastatin; Translations: [ATORVASTATIN] Drug Allergy 0 Other [facility] (20 sources) Latex Allergy to substance 7 Itching [facility] (20 sources) metFORMIN; Translations: [METFORMIN] Drug Allergy 0 Diarrhea, GI intolerance, Vomiting, GI Disturbance [facility] (20 sources) Metoprolol; Translations: [METOPROLOL] Drug Allergy 1 Dizziness [facility] (20 sources) pegademase bovine Drug Allergy 7 Unknown [facility] (20 sources) Poractant tianna Drug Allergy 7 Swelling [facility] (20 sources) WHEAT DEXTRIN Drug Allergy 7 GI intolerance [facility] (4 sources) atorvastatin Drug Allergy 0 muscle cramps, Other (See Comments) [facility] (1 source) pegademase bovine Drug Allergy 7 Other (See Comments) [facility] (1 source) Poractant tianna Drug Allergy 7 Swelling [facility] (1 source) Wheat preparation Drug Allergy 7 GI Disturbance [facility] (1 source) natural latex rubber; Translations: [LATEX, NATURAL RUBBER] Propensity to adverse reactions to drug (disorder) 7 [facility] Medications Current Medications Medication Drug Class(es) Dates Sig (Normalized) Sig (Original) acetaminophen 325 mg / oxyCODONE hydrochloride 5 mg oral tablet (8 sources) Opioid Agonist Start: 07-23-2024 End: 07-30-2024 [...] End: 2025 take 1 tablet by mouth once daily ARIPiprazole (Abilify) 5 MG tablet Indications: Bipolar disorder, current episode mixed, mild (HCC) Take 1 tablet (5 mg) by mouth Daily 90 tablet 1 10/08/2024 Active aspirin 81 mg delayed release oral tablet (16 sources) Platelet Aggregation Inhibitor, Nonsteroidal Anti-inflammatory Drug Start: 10-18-2024 End: 01-07-2025 take 1 tablet by mouth in the morning aspirin 81 mg Indications: Pre-op testing Take 1 tablet (81 mg total) by mouth in the morning. 90 tablet 10/18/2024 Active azithromycin 250 mg oral tablet (5 sources) Macrolide Antimicrobial Start: 08-28-2024 End: 10-08-2024 azithromycin (Zithromax) 250 MG tablet Indications: URI, acute Day #1: 2 pills, Day #2-#5: 1 pill daily 6 tablet 08/28/2024 10/08/2024 Discontinued (Therapy completed) Continuous Glucose Steel Rule Inspector (FreeStyle Helen 2 [place]) device (20 sources) Start: 02-25-2025 End: 02-25-2026 Continuous Glucose Steel Rule Inspector (FreeStyle Helen 2 [place]) device Indications: Type 2 diabetes mellitus without complication, without long-term current use of insulin (HCC) 1 kit Daily 1 each 02/25/2025 02/25/2026 Active Start: 02-27-2024 End: 01-07-2025 Continuous Glucose Steel Rule Inspector (FreeStyle Helen 2 [place]) device Indications: Type 2 diabetes mellitus without complication, without long-term current use of insulin (HCC) 1 each Daily 1 each 02/27/2024 01/07/2025 Discontinued (Therapy completed) Start: 02-27-2024 End: 02-26-2025 Continuous Glucose Steel Rule Inspector (FreeStyle Helen 2 [place]) device Indications: Type 2 diabetes mellitus without complication, without long-term current use of insulin (HCC) 1 each Daily 1 each 02/27/2024 02/26/2025 Active Start: 02-27-2024 End: 02-26-2025 Continuous Glucose Steel Rule Inspector (FreeStyle Helen 2 [place]) device Indications: Type 2 diabetes mellitus without complication, without long-term current use of insulin 1 each Daily 1 each 02/27/2024 02/26/2025 Active Start: 02-27-2024 End: 02-26-2025 Continuous Glucose Steel Rule Inspector (FreeStyle Helen 2 [place]) device Indications: Type 2 diabetes mellitus without complication, without long-term current use of insulin (CMS/HCC) 1 each Daily 1 each 02/27/2024 02/26/2025 Active End: 02-25-2025 Continuous Glucose Steel Rule Inspector (FreeStyle Helen 2 [place]) device 1 kit 1 (one) time each day 02/25/2025 Discontinued (Reorder) Continuous Glucose Sensor (FreeStyle Helen 14 Day Sensor) misc (1 source) Start: 02-07-2024 End: 03-06-2024 Continuous Glucose Sensor (FreeStyle Helen 14 Day Sensor) misc Indications: Type 2 diabetes mellitus without complication, without long-term current use of insulin (CMS/HCC) 1 each by Other route Daily for 28 days 2 each 02/07/2024 03/06/2024 Active Continuous Glucose Sensor (FreeStyle Helen 2 Sensor) misc (20 sources) Start: 02-25-2025 End: 03-25-2025 Continuous Glucose Sensor (FreeStyle Helen 2 Sensor) misc Indications: Type 2 diabetes mellitus without complication, without long-term current use of insulin (HCC) 1 each by Other route every 14 (fourteen) days for 28 days 2 each 02/25/2025 03/25/2025 Active Start: 02-06-2025 End: 02-25-2025 Continuous Glucose Sensor (F reeStyle Helen 2 Sensor) misc USE DIRECTED to test BLOOD SUGAR change EVERY 14 days 02/06/2025 02/25/2025 Discontinued (Reorder) Start: 07-02-2024 End: 01-07-2025 Continuous Glucose Sensor (F reeStyle Helen 2 Sensor) misc USE DIRECTED to test BLOOD SUGAR change EVERY 14 days 07/02/2024 01/07/2025 Discontinued (Therapy completed) Start: 07-02-2024 Continuous Glu cose Sensor (FreeStyle [...] End: 2025 take 1 tablet by mouth once daily escitalopram (Lexapro) 10 MG tablet Indications: Anxiety and depression , Bipolar disorder, current episode mixed, mild (HCC) Take 1 tablet (10 mg) by mouth Daily 90 tablet 1 10/08/2024 Active famotidine 20 mg oral tablet (4 sources) Histamine-2 Receptor Antagonist Start: 05-04-2021 take 1 tablet by mouth in the morning famotidine (PEPCID) 20 mg tablet Take 20 mg by mouth in the morning. 05/04/2021 Active FREESTYLE HELEN 14 DAY SENSOR kit (4 sources) Start: 08-24-2021 FREESTYLE HELEN 14 DAY SENSOR kit 08/24/2021 Active gabapentin 300 mg oral capsule (15 sources) Anti-epileptic Agent Start: 01-07-2025 End: 02-06-2025 take 2 capsules by mouth at bedtime gabapentin (Neurontin) 300 MG capsule Indications: Neuroforaminal stenosis of spine Take 2 capsules (600 mg) by mouth at bedtime 60 capsule 2 01/07/2025 Active Start: 09-24-2024 End: 01-07-2025 take 1 capsule by mouth in the morning, then take 1 capsule by mouth in the evening, then take 1 capsule by mouth at bedtime gabapentin (Neurontin) 300 MG capsule Take 300 mg by mouth in the morning and 300 mg in the evening and 300 mg before bedtime. 09/24/2024 01/07/2025 Discontinued (Reorder) 3 ml insulin glargine 100 unt/ml pen injector (4 sources) Insulin Analog insulin glargine (LANTUS, BASAGLAR) 100 unit/mL (3 mL) insulin pen Indications: type 2 diabetes mellitus Inject 50 Units under the skin in the morning. Indications: type 2 diabetes mellitus. Active naloxone (NARCAN) 4 mg/actuation spray,non-aerosol nasal spray (4 sources) Start: naloxone (NARCAN) 4 mg/actuation spray,non-aerosol nasal spray Administer 1 spray (4 mg total) into alternating nostrils as needed for opioid reversal. 1 each 1 01/21/2022 Active nitroglycerin 0.4 mg sublingual tablet (4 sources) Nitrate Vasodilator Start: nitroglycerin (NITROSTAT) 0.4 MG SL tablet 1 under the tongue as needed for angina, may repeat q5mins for up three doses 25 tablet 3 04/02/2021 Active pediatric multivitamin no.136 (CHILDREN MULTIVITAMIN) tablet,chewable (4 sources) pediatric multivitamin no.136 (CHILDREN MULTIVITAMIN) tablet,chewable Chew and swallow daily. Active prednisoLONE 3 mg/ml oral solution (4 sources) Corticosteroid Start: take 10 mL by mouth once daily prednisoLONE (PRELONE) 15 mg/5 mL syrup Take 10 mL PO QD x 5 days 50 mL 01/20/2022 Active promethazine hydrochloride 1.25 mg/ml oral solution (4 sources) Phenothiazine Start: take 15-20 mL by mouth every four to six hours as needed for nausea promethazine (PHENERGAN) 6.25 mg/5 mL syrup Take 15-20 mL by mouth every 4-6 hours as needed for nausea vomiting 200 mL 01/20/2022 Active rosuvastatin calcium 10 mg oral tablet (8 sources) HMG-CoA Reductase Inhibitor Start: End: take 1 tablet by mouth in the morning rosuvastatin (CRESTOR) 10 mg tablet Indications: Pre-op testing Take 1 tablet (10 mg total) by mouth in the morning. 10/18/2024 Active 0.25 mg, 0.5 mg dose 1.5 ml semaglutide 1.34 mg/ml pen injector (4 sources) semaglutide (OZEMPIC) 0.25 mg or 0.5 mg(2 mg/1.5 mL) pen injector Inject 0.75 mg under the skin every 7 days. Pt takes on Active semaglutide (Ozempic, 1 MG/DOSE,) 4 MG/3ML solution pen-injector (18 sources) Start: End: inject 1 mg by subcutaneous injection every week semaglutide (Ozempic, 1 MG/DOSE,) 4 MG/3ML solution pen-injector Indications: Type 2 diabetes mellitus without complication, without long-term current use of insulin (HCC) Inject 1 mg under the skin 1 (one) time per week for 28 days 3 mL 1 12/07/2024 01/07/2025 Discontinued (Ineffective) Start: 12-07-2024 inject 1 mg by subcu taneous injection every week semaglutide (Ozempic, 1 MG/DOSE,) 4 MG/3ML solution pen-injector Indications: Type 2 diabetes mellitus without complication, without long-term current use of insulin (HCC) Inject 1 mg under the skin 1 (one) time per week for 28 days 3 mL 1 12/07/2024 Active Start: 12-07-2024 End: 01-04-2025 inject 1 mg by subcutaneous injection every week semaglutide (Ozempic, 1 MG/DOSE,) 4 MG/3ML solution pen-injector Indications: Type 2 diabetes mellitus without complication, without long-term current use of insulin Inject 1 mg under the skin 1 (one) time per week for 28 days 3 mL 1 12/07/2024 01/04/2025 Active Start: 10-08-2024 End: 12-07-2024 inject 1 mg by subcutaneous injection every week semaglutide (Ozempic, 1 MG/DOSE,) 4 MG/3ML solution pen-injector Indications: Type 2 diabetes mellitus without complication, without long-term current use of insulin Inject 1 mg under the skin 1 (one) time per week for 28 days 3 mL 3 10/08/2024 12/07/2024 Discontinued (Reorder) Start: 10-08-2024 End: 11-05-2024 inject 1 mg [...] days 3 mL 3 08/06/2024 09/03/2024 Active Semaglutide, 2 MG/DOSE, (Ozempic, 2 MG/DOSE,) 8 MG/3ML solution pen-injector (5 sources) Start: 01-07-2025 Semaglutide, 2 MG/DOSE, (Ozempic, 2 MG/DOSE,) 8 MG/3ML solution pen-injector Indications: Type 2 diabetes mellitus with diabetic polyneuropathy, without long-term current use of insulin (HCC) Inject 2 mg under the skin every 7 (seven) days for 28 days 3 mL 2 01/07/2025 Active Start: 01-07-2025 End: 02-04-2025 Semaglutide, 2 MG/DOSE, (Oze mpic, 2 MG/DOSE,) 8 MG/3ML solution pen-injector Indications: Type 2 diabetes mellitus with diabetic polyneuropathy, without long-term current use of insulin (HCC) Inject 2 mg under the skin every 7 (seven) days for 28 days 3 mL 2 01/07/2025 02/04/2025 Active End: 01-07-2025 Semaglutide, 2 MG/DOSE, (Oze mpic, 2 MG/DOSE,) 8 MG/3ML solution pen-injector Inject 2 mg under the skin every 7 (seven) days 01/07/2025 Discontinued (Reorder) zonisamide 100 mg oral capsule (3 sources) Anti-epileptic Agent Start: 08-27-2024 End: 10-08-2024 take 1 capsule by mouth in the morning zonisamide (Zonegran) 100 MG capsule Take 100 mg by mouth in the morning and 100 mg before bedtime. 08/27/2024 10/08/2024 Discontinued (Therapy completed) Completed/Discontinued Medications Medication Drug Class(es) Dates Sig (Normalized) Sig (Original) Continuous Glucose Steel Rule Inspector (FreeStyle Helen 3 [place]) device (3 sources) Start: 05-22-2024 End: 05-28-2024 Continuous Glucose Steel Rule Inspector (FreeStyle Helen 3 [place]) device Indications: Type 2 diabetes mellitus without complication, without long-term current use of insulin ([facility]) 1 each Daily 3 each 05/22/2024 05/28/2024 Discontinued (Therapy completed) Start: 05-22-2024 End: 06-21-2024 Continuous Glucose Steel Rule Inspector (FreeStyle Helen 3 [place]) device Indications: Type 2 diabetes mellitus without complication, without long-term current use of insulin ([facility]) 1 each Daily 3 each 05/22/2024 06/21/2024 [...] disease (20 sources) Atherosclerotic heart disease of [place] coronary artery without angina pectoris; Translations: [Coronary [...] 07-27-2023 07-27-2023 Chronic Other aftercare (1 source) residential (current) use of aspirin; Translations: [BRAKE SHOE REBUILDER CURRENT USE OF ASPIRIN] Onset: 09-13-2022 Episodic Other aftercare (1 source) Other alf (current) drug therapy; Translations: [OTH BRAKE SHOE REBUILDER CURRENT DRUG THERAPY] Onset: 09-13-2022 Episodic Other [...] Dyspnea; Translations: [Dyspnea, unspecified] 10-18-2024 Episodic Other lower respiratory disease (1 source) Dyspnea, unspecified; Translations: [Dyspnea, unspecified] Onset: 10-18-2024 Episodic Other non-traumatic joint disorders (4 sources) Rotator cuff arthropathy of right shoulder; Translations: [Other specific arthropathies, not elsewhere classified, right shoulder] Onset: 09-18-2020 09-18-2020 Chronic Other nutritional; endocrine; and metabolic disorders (4 sources) Obesity; Translations: [Class 2 obesity in adult] Onset: 02-26-2020 02-26-2020 Chronic Residual codes; unclassified (20 sources) Obstructive sleep [...] region] Onset: 10-08-2016 11-17-2023 Chronic Substance-related disorders (15 sources) Nicotine dependence, cigarettes, uncomplicated; Translations: [Tobacco dependence caused by cigarettes] Onset: 09-13-2022 10-08-2024 Chronic Unclassified (1 source) New Patient Onset: 10-18-2024 Unclassified (1 source) Pre-op Exam Onset: 10-18-2024 Past or Other Problems Problem Classification Problem Date Documented Date Episodic/Chronic Diseases of mouth; excluding dental (4 sources) Uvular hypertrophy; Translations: [Other lesions of oral mucosa] Onset: 04-06-2021 04-06-2021 Episodic Fluid and electrolyte disorders (4 sources) Dehydration; Translations: [Dehydration] Onset: 08-29-2019 08-29-2019 Episodic Immunizations and screening for infectious disease (20 sources) Raised antinuclear antibody; Translations: [Other specified abnormal immunological findings in serum] Onset: 11-17-2023 11-17-2023 Episodic Malaise and fatigue (4 sources) Right hemiparesis; Translations: [Weakness] Onset: 09-17-2020 09-17-2020 Episodic Mood disorders (20 sources) Mood disorders; Translations: [DEPRESSION UNSPECIFIED] Onset: 05-20-2021 Resolved: 05-22-2024 05-22-2024 Other aftercare (1 source) residential (current) use of insulin; Translations: [HALFWAY CURRENT USE OF INSULIN] Onset: 12-18-2021 Episodic Other and unspecified benign neoplasm (20 sources) History of polyp of colon; Translations: [History of colon polyps] Onset: 11-17-2023 11-17-2023 Episodic Other hematologic conditions (4 sources) Erythrocytosis; Translations: [Secondary polycythemia] Onset: 03-27-2021 03-27-2021 Episodic Other non-traumatic joint disorders (20 sources) Hip pain; Translations: [Pain in right hip] Onset: 11-17-2023 11-17-2023 Episodic Other non-traumatic joint disorders (1 source) Pain in right hip joint; Translations: [Pain in right hip] Onset: 11-17-2023 11-17-2023 Episodic Other nutritional; endocrine; and metabolic disorders (20 sources) Body mass index 30+ - obesity; Translations: [Body mass index (BMI) 32.0-32.9, adult] Onset: 04-02-2021 Resolved: 05-22-2024 04-05-2024 Chronic Other screening for suspected conditions (not mental disorders or infectious disease) (20 sources) Encounter for screening mammogram for malignant neoplasm of breast; Translations: [Patient encounter status] Onset: 08-31-2022 Episodic Other upper respiratory disease (20 sources) Cyst of nasopharynx; Translations: [Other diseases of pharynx] Onset: 10-23-2020 11-17-2023 Episodic Other upper respiratory disease (4 sources) Deviated nasal septum; Translations: [Deviated nasal septum] Onset: 10-23-2020 10-23-2020 Episodic Other upper respiratory disease (4 sources) Bleeding from nose; Translations: [Epistaxis] Onset: 12-16-2020 12-16-2020 Episodic Other upper respiratory infections (14 sources) Acute upper respiratory infection; Translations: [Acute upper respiratory infection, unspecified] Onset: 08-28-2024 Resolved: 10-08-2024 08-28-2024 Episodic Residual codes; unclassified (20 sources) Tobacco use and exposure - finding; Translations: [Tobacco use] Onset: 05-22-2024 Resolved: 10-08-2024 05-22-2024 Episodic Residual codes; unclassified (4 sources) History of surgical procedure on mouth; Translations: [Acquired absence of other organs] Onset: 02-03-2022 02-03-2022 Episodic Spondylosis; intervertebral disc disorders; other back problems (20 sources) Spinal stenosis in cervical region; Translations: [Spinal stenosis, cervical region] Onset: 03-31-2017 11-17-2023 Episodic Viral infection (20 sources) Herpes simplex; Translations: [Herpesviral infection, unspecified] Onset: 11-17-2023 11-17-2023 Episodic Results Test Name Value Interpretation Reference Range Facility HbA1c (Bld) [Mass fraction]o n 01-07-2025 Interpretation and review of laboratory results Abnormal [facility] - Hematology and Cell countson 01-07-2025 HbA1c (Bld) [Mass fraction] 7.8 % [facility] ALL CBC WITH AUTO DIFFon BASOPHILS ABSOLUTE AUTO 0.1 [facility] Basophils/100 WBC (Bld) 0.8 % 0.2 - 2.0 % [facility] Eosinophils/100 WBC (Bld) 1.7 % 0.9 - 7.0 % [facility] Erythrocyte distribution width (RBC) [Ratio] 15.4 % High 11.0 - 15.0 % [facility] Hematocrit (Bld) [Volume fraction] 53.1 % High 36.0 - 48.0 % [facility] Hemoglobin (Bld) [Mass/Vol] 18.2 g/dL High 12.0 - 16.0 g/dL [facility] IMMATURE GRANULOCYTES ABS AUTO 0.04 High [facility] Immature granulocytes/100 WBC (Bld) 0.3 % 0.0 - 0.5 % [facility] Interpretation and review of laboratory results Abnormal [facility] LYMPHOCYTES ABSOLUTE AUTO 3.5 [facility] Lymphocytes/100 WBC (Bld) 27.7 % 20.5 - 60.0 % [facility] (RBC) [Entitic mass] 30.4 pg 26.7 - 34.0 pg [facility] MCHC (RBC) [Mass/Vol] 34.3 g/dL 29.9 - 35.2 g/dL [facility]CV (RBC) [Entitic vol] 88.6 fL 81.0 - 99.[address] [facility] MONOCYTES ABSOLUTE AUTO 0.4 [facility] Monocytes/100 WBC (Bld) 3.3 % 1.7 - 12.0 % [facility] NEUTROPHILS ABSOLUTE AUTO 8.4 High [facility] Neutrophils/100 WBC (Bld) 66.2 % 43.0 - 75.0 % [facility] Platelet mean volume (Bld) [Entitic vol] 8.8 fL Low 9.5 - 13.5 fL [facility] TBH EO # 0.2 [facility] TBH [address] [facility] RBC 5.99 High [facility] Healthcare TBH WBC 12.6 High [facility] Healthcare XR CHEST 2Von 10-19-2024 [place] [address] XRay Report Signed Patient: ESMER BEACH MR#: [id number] : 1970 Acct:[id number] Age/Sex: 54 / F ADM Date: 10/19/24 Loc: PST Attending Dr: Obdulio Coles M.D. Ordering Physician: Obdulio Coles M.D. Date of Service: 10/19/24 Procedure(s): XR chest 2V Accession Number(s): [id number] cc: Lacy Alberto POWDER WORKER; Obdulio Coles M.D. [address] [address] Patient Name: ESMER BEACH MRN: [id number] date: 1970 Sex: F Assigned Patient Location: [place] Current Patient Location: [place] Accession/Order Number: [id number] Exam Date: 10/19/2024 11:29 Report Date: 10/19/2024 11:30 At the request of: OBDULIO COLES MD Procedure: XR chest 2V PA AND LATERAL CHEST: CLINICAL HISTORY: Preoperative clearance for spine surgery. COMPARISON: 03/03/2018 There is no focal parenchymal consolidation, effusion or pneumothorax. The cardiac, hilar and mediastinal silhouettes are within normal limits. There is no vascular congestion. The visualized bony thorax is intact. There is mild endplate spurring at the spine. XR/XR chest 2V IMPRESSION: NO ACUTE CARDIOPULMONARY ABNORMALITY. Impression dictated by: Gloria Koch M.D.10/19/2024 11:30 AM Dictation Location: [place] [address] Electronically authenticated by: [id number] Y Date: 10/19/2024 11:30 Dictated By: Gloria Koch M.D. Signed By: 10/19/24 1133 DD/ 1130 TD/TT: Ct Technician: [facility] Radiology, Radiologist, - 10/19/2024 [place] [address] XRay Report Signed Patient: ESMER BEACH MR#: [id number] : 1970 Acct:[id number] Age/Sex: 54 / F ADM Date: 10/19/24 Loc: [facility] Attending Dr: Obdulio Coles M.D. Ordering Physician: Obdulio Coles M.D. Date of Service: 10/19/24 Procedure(s): XR chest 2V Accession Number(s): [id number] cc: Lacy Alberto NP; Obdulio Coles M.D. The [address] [address] Patient Name: ESMER BEACH MRN: [facility]:[id number] date: 1970 Sex: F Assigned Patient Location: [place] Current Patient Location: [place] Accession/Order Number: [id number] Exam Date: 10/19/2024 11:29 Report Date: 10/19/2024 11:30 At the request of: OBDULIO COLES MD Procedure: XR chest 2V PA AND LATERAL CHEST: CLINICAL HISTORY: Preoperative clearance for spine surgery. COMPARISON: 03/03/2018 There is no focal parenchymal consolidation, effusion or pneumothorax. The cardiac, hilar and mediastinal silhouettes are within normal limits. There is no vascular congestion. The visualized bony thorax is intact. There is mild endplate spurring at the spine. XR/XR chest 2V IMPRESSION: NO ACUTE CARDIOPULMONARY ABNORMALITY. Impression dictated by: Gloria Koch M.D.10/19/2024 11:30 AM Dictation Location: [place] [address] Electronically authenticated by: [id number] Y Date: 10/19/2024 11:30 Dictated By: Gloria Koch M.D. Signed By: 10/19/24 1133 DD/ 1130 TD/TT: Ct Technician: [facility] Radiology Study observation (narrative) [facility] XR CHEST 2VOrdered By: Radio logist Radiology on 10[facility]19-2024 [facility] Work Phone: POCT EKGon 10-18-2024 [facility] No Panel InformationOrdered By: Radiologist Radiology on 10-05-2024 [facility] Work Phone: No Panel Informationon 10-05 Radiology Study observation (narrative) [facility] XR CERVICAL SPINE 5Von 10-05 [place] [address] XRay Report Signed Patient: ESMER BEACH MR#: [id number] : 1970 Acct:[id number] Age/Sex: 54 / F ADM Date: 10/05/24 Loc: EC Attending Dr: Obdulio Coles M.D. Ordering Physician: Obdulio Coles M.D. Date of Service: 10/05/24 Procedure(s): XR cervical spine 5V Accession Number(s): [id number] cc: Lacy Alberto POWDER WORKER; Obdulio Coles M.D. The [address] [address] Patient Name: ESMER BEACH MRN: [facility]:[id number] date: 1970 Sex: F Assigned Patient Location: Current Patient Location: Accession/Order Number: [id number] Exam Date: 10/05/2024 12:00 Report Date: 10/05/2024 [...] Gloria Koch M.D.10/05/2024 12:21 PM Dictation Location: [place] [address] Electronically authenticated by: [id number] Y Date: 10/05/2024 12:21 Dictated By: Gloria Koch M.D. Signed By: 10/05/24 1223 DD/ 1221 TD/TT: Ct Technician: [facility] Radiology, Radiologist, MD - 10/05/2024 The [place] [id number] XRay Report Signed Patient: ESMER BEACH#: [id number] : 1970 Acct:[id number] Age/Sex: 54 / F ADM Date: 10/05/24 Loc: Attending Dr: Obdulio Coles M.D. Ordering Physician: Obdulio Coles M.D. Date of Service: 10/05/24 Procedure(s): XR cervical spine 5V Accession Number(s): [id number] cc: Lacy Alberto POWDER WORKER; Obdulio Coles M.D. [place] [address] Patient Name: ESMER BEACH MRN: [id number] date: 1970 Sex: F Assigned Patient Location: Current Patient Location: Accession/Order Number: [id number] Exam Date: 10/05/2024 12:00 Report Date: 10/05/2024 [...] Gloria Koch M.D.10/05/2024 12:21 PM Dictation Location: [place] [address] Electronically authenticated by: [id number] Y Date: 10/05/2024 12:21 Dictated By: Gloria Koch M.D. Signed By: 10/05/24 1223 DD/ 1221 TD/TT: Ct Technician: PRASANNA Ramos XR LUMBAR SPINE MIN [address] [address] XRay Report Signed Patient: ESMER BEACH MR#: [id number] : 1970 Acct:[id number] Age/Sex: 54 / F ADM Date: 10/05/24 Loc: EC Attending Dr: Obdulio Coles M.D. Ordering Physician: Obdulio Coles M.D. Date of Service: 10/05/24 Procedure(s): XR lumbar spine min 4V Accession Number(s): [id number] cc: Lacy Alberto POWDER WORKER; Obdulio Coles M.D. [place] [address] Patient Name: ESMER BEACH MRN: [id number] date: 1970 Sex: F Assigned Patient Location: Current Patient Location: Accession/Order Number: [id number] Exam Date: 10/05/2024 12:00 Report Date: 10/05/2024 [...] Gloria Koch M.D.10/05/2024 12:21 PM Dictation Location: [place] [address] Electronically authenticated by: [id number] Y Date: 10/05/2024 12:21 Dictated By: Gloria Koch M.D. Signed By: 10/05/24 1223 DD/ 1221 TD/TT: Ct Technician: [facility] Radiology, Radiologist, MD - 10/05/2024 [place] [address] XRay Report Signed Patient: ESMER BEACH MR#: [id number] : 1970 Acct:[id number] Age/Sex: 54 / F ADM Date: 10/05/24 Loc: Attending Dr: Obdulio Coles M.D. Ordering Physician: Obdulio Coles M.D. Date of Service: 10/05/24 Procedure(s): XR lumbar spine min 4V Accession Number(s): [id number] cc: Lacy Alberto POWDER WORKER; Obdulio Coles M.D. The [place] [address] Patient Name: ESMER BEACH MRN: [facility]:[id number] date: 1970 Sex: F Assigned Patient Location: Current Patient Location: Accession/Order Number: [id number] Exam Date: 10/05/2024 12:00 Report Date: 10/05/2024 [...] Gloria Koch M.D.10/05/2024 12:21 PM Dictation Location: [place] [address] Electronically authenticated by: [id number] Y Date: 10/05/2024 12:21 Dictated By: Gloria Koch M.D. Signed By: 10/05/24 1223 DD/ 1221 TD/TT: Ct Technician: [facility] MR Cervical spine WO contras ton 08-10-2024 [place] [address] Magnetic Resonance Report Signed Patient: ESMER BEACH MR#: [id number] : 1970 Acct:[id number] Age/Sex: 54 / F ADM Date: 08/10/24 Loc: MRI Attending Dr: Edgardo Menon M.D. Ordering Physician: Edgardo Menon M.D. Date of Service: 08/10/24 Procedure(s): MR cervical spine wo con Accession Number(s): [id number] cc: Lacy Alberto POWDER WORKER; Edgardo Menon M.D. The [address] [address] Patient Name: ESMER BEACH MRN: [facility]:[id number] date: 1970 Sex: F Assigned Patient Location: MRI Current Patient Location: MRI Accession/Order Number: [id number] Exam Date: 08/10/2024 13:10 Report Date: 08/10/2024 [...] Signed By: 08/10/24 1459 DD/ 1456 TD/TT: Ct Technician: [facility] Radiology, Radiologist, MD - 08/10/2024 [place] [address] Magnetic Resonance Report Signed Patient: ESMER BEACH MR#: [id number] : 1970 Acct:[id number] Age/Sex: 54 / F ADM Date: 08/10/24 Loc: MRI Attending Dr: Edgardo Menon M.D. Ordering Physician: Edgardo Menon M.D. Date of Service: 08/10/24 Procedure(s): MR cervical spine wo con Accession Number(s): [id number] cc: Lacy Alberto POWDER WORKER; Edgardo Menon M.D. [place] [address] Patient Name: ESMER BEACH MRN: [id number] date: 1970 Sex: F Assigned Patient Location: MRI Current Patient Location: MRI Accession/Order Number: [id number] Exam Date: 08/10/2024 13:10 Report Date: 08/10/2024 [...] Signed By: 08/10/24 1459 DD/ 55 TD/TT: Ct Technician: [facility] Radiology Study observation (narrative) [facility] MR Cervical spine WO contras tOrdered By: Radiologist Radiology on 08-10-2024 [facility] Work Phone: HbA1c (Bld) [Mass fraction]o n 08-06-2024 Interpretation and review of laboratory results Abnormal [facility] - Hematology and Cell countson 08-06-2024 HbA1c (Bld) [Mass fraction] 8.80 % [facility] ALL CBC WITH AUTO DIFFon BASOPHILS ABSOLUTE AUTO 0.1 [facility] Basophils/100 WBC (Bld) 0.6 % 0.2 - 2.0 % [facility] Eosinophils/100 WBC (Bld) 1.7 % 0.9 - 7.0 % [facility] Erythrocyte distribution width (RBC) [Ratio] 13.8 % 11.0 - 15.0 % [facility] Hematocrit (Bld) [Volume fraction] 55.5 % High 36.0 - 48.0 % [facility] Hemoglobin (Bld) [Mass/Vol] 18.7 g/dL High 12.0 - 16.0 g/dL [facility] IMMATURE GRANULOCYTES ABS AUTO 0.03 [facility] Immature granulocytes/100 WBC (Bld) 0.2 % 0.0 - 0.5 % [facility] Interpretation and review of laboratory results Abnormal [facility] LYMPHOCYTES ABSOLUTE AUTO 2.9 [facility] Lymphocytes/100 WBC (Bld) 23.1 % 20.5 - 60.0 % [facility] MCH (RBC) [Entitic mass] 30.6 pg 26.7 - 34.0 pg [facility] MCHC (RBC) [Mass/Vol] 33.7 g/dL 29.9 - 35.2 g/dL [facility] MCV (RBC) [Entitic vol] 90.7 fL 81.0 - 99.0 fL [facility] MONOCYTES ABSOLUTE AUTO 0.6 [facility] Monocytes/100 WBC (Bld) 4.5 % 1.7 - 12.0 % [facility] NEUTROPHILS ABSOLUTE AUTO 8.9 High [facility] Neutrophils/100 WBC (Bld) 69.9 % 43.0 - 75.0 % [facility] Platelet mean volume (Bld) [Entitic vol] 9.2 fL Low 9.5 - 13.5 fL [facility] TBH EO # 0.2 [facility] TBH PLT 235 [facility] TB RBC 6.12 High [facility] TBH WBC 12.7 High [facility] CBC W MANUAL DIFFon 09-10-19 23 ATYPICAL LYMPH # 1.49 103/ul Normal [facility] Comment on above: Performed By: #### C EMANI #### [facility] [address] [place] [address] Dr. Shakira Bahena ATYPICAL LYMPH % 8 % Normal [facility] Comment on above: Performed By: #### C EMANI #### [facility] [address] [place] [address] Dr. Shakira Bahena BAND # 0.0 103/ul Normal 0.0-0.3 [facility] Comment on above: Performed By: #### C EMANI #### [facility] [address] [place] [address] Dr. Shakira Bahena BAND % 0 % Normal 0-5 [facility] Comment on above: Performed By: #### Elma JOAQUIN #### [facility] [address] [place] [address] Dr. Shakira Bahena BASOM # 0.00 103/ul Normal 0.00-0.10 [facility] Comment on above: Performed By: #### C EMANI #### [facility] [address] [place] [address] Dr. Shakira Bahena BASOM % 0.0 % Critically low 0.2-2.0 [facility] Comment on above: Performed By: #### C EMANI #### [facility] [address] [place] [address] Dr. Shakira Bahena BLAST # Normal [facility] Comment on above: Performed By: #### C EMANI #### [facility] [address] [place] [address] Dr. Shakira Bahena BLAST % Normal [facility] Comment on above: Performed By: #### C EMANI #### [facility] [address] [place] [address] Dr. Shakira Bahena CORRECTED WBC Normal 4.0-11.0 [facility] Comment on above: Performed By: #### C EMANI #### [facility] [address] [place] [address] Dr. Shakira Bahena EOS # 0.56 103/ul Normal 0.00-0.70 [facility] Comment on above: Performed By: #### C EMANI #### [facility] [address] [place] [address] Dr. Shakira Bhaena EOS% 3.0 % Normal 0.9-7.0 [facility] Comment on above: Performed By: #### C EMANI #### [facility] [address] [place] [address] Dr. Shakira Bahena HCT 50.8 % Critically high 36.0-48.0 [facility] Comment on above: Performed By: #### C EMANI #### [facility] [address] [place] [address] Dr. Shakira Bahena HGB 17.7 g/dl Critically high 12.0-16.0 [facility] Comment on above: Performed By: #### C EMANI #### [facility] [address] [place] [address] Dr. Shakira Bahena LYMPHM # 1.30 103/ul Normal 1.20-3.80 [facility] Comment on above: Performed By: #### C EMANI #### [facility] [address] [place] [address] Dr. Shakira Bahena LYMPHM% 7.0 % Critically low 20.5-60.0 [facility] Comment on above: Performed By: #### C EMANI #### [facility] [address] [place] [address] Dr. Shakira Bahena MCH 30.7 pg Normal 26.7-34.0 [facility] Comment on above: Performed By: #### C BCMAN #### [facility] [address] [place] [address] Dr. Shakira Bahena MCHC 34.8 g/dl Normal 29.9-35.2 [facility] Comment on above: Performed By: #### C BCMAN #### [facility] [address] [place] [address] Dr. Shakira Bahena MCV 88.0 fL Normal 81.0-99.0 [facility] Comment on above: Performed By: #### C BCANGELA #### [facility] [address] [place] [address] Dr. Shakira Bahena METAMYELOCYTE # Normal [facility] Comment on above: Performed By: #### C EMANI #### [facility] [address] [place] [address] Dr. Shakira Bahena METAMYELOCYTE % Normal [facility] Comment on above: Performed By: #### C EMANI #### [facility] [address] [place] [address] Dr. Shakira Bahena MONOM# 0.37 103/ul Normal 0.30-0.80 [facility] Comment on above: Performed By: #### C EMANI #### [facility] [address] [place] [address] Dr. Shakira Bahena MONOM% 2.0 % Normal 1.7-12.0 [facility] Comment on above: Performed By: #### C EMANI #### [facility] [address] [place] [address] Dr. Shakira Bahena MPV 10.1 fL Normal 9.5-13.5 [facility] Comment on above: Performed By: #### C BCMAN #### [facility] [address] [place] [address] Dr. Shakira Bahena MYELOCYTE # Normal [facility] Comment on above: Performed By: #### C EMANI #### [facility] [address] [place] [address] Dr. Shakira Bahena MYELOCYTE % Normal [facility] Comment on above: Performed By: #### C EMANI #### [facility] [address] [place] [address] [address] Shakira Bahena NRBC Normal [facility] Comment on above: Performed By: #### C EMANI #### [facility] [address] [place] [address] [address] Shakira Bahena PLT 235 103/ul Normal 150-450 [facility] Comment on above: Performed By: #### C EMANI #### [facility] [address] [place] [address] [address] Shakira Bahena RBC 5.77 106/ul Critically high 4.20-5.40 [facility] Comment on above: Performed By: #### C EMANI #### [facility] [address] [place] [address] Dr. Shakira Bahena RDW 14.5 % Normal 11.0-15.0 [facility] Comment on above: Performed By: #### C EMANI #### [facility] [address] [place] [address] Dr. Shakira Bahena SEG # 14.88 103/ul Critically high 1.40-6.50 [facility] Comment on above: Performed By: #### C EMANI #### [facility] [address] [place] [address] Dr. Shakira Bahena SEG % 80.0 % Critically high 43.0-75.0 [facility] Comment on above: Performed By: #### C EMANI #### [facility] [address] [place] [address] Dr. Shakira Bahena WBC 18.6 103/ul Critically high 4.0-11.0 [facility] Comment on above: Performed By: #### Elma JOAQUIN #### [facility] [address] [place] [address] ABD/PELVIS WO CONon [...] CASSIE BACK Date: 2022-09-09 21:39 Normal [facility] ER URINE PROFILEon 3 Bilirubin Ql (U) Negative Normal NEGATIVE [facility] Comment on above: Performed By: #### U MICRO, ERUR #### [facility] [address] [place] [address] Dr. Shakira Bahena Clarity (U) CLEAR Normal CLEAR [facility] Comment on above: Performed By: #### U MICRO, ERUR #### [facility] [address] [place] [address] [address] Shakira Bahena Color (U) RED Abnormal YELLOW [facility] Comment on above: Performed By: #### U MICRO, ERUR #### [facility] [address] [place] [address] Dr. Yilan Bahena ERUAHD A micrscopic examination will be performed if indicated. Normal [facility] Comment on above: Performed By: #### U MICRO, ERUR #### [facility] [address] [place] [address] [address] Shakira Bahena Glucose Ql (U) Negative Normal NEGATIVE [facility] Comment on above: Performed By: #### U MICRO, ERUR #### [facility] [address] [place] [address] [address] Shakira Bahena Hemoglobin Ql (U) LARGE Abnormal NEGATIVE [facility] Comment on above: Performed By: #### U MICRO, ERUR #### [facility] [address] [place] [address] [address] Shakira Bahena Ketones Ql (U) Negative Normal NEGATIVE [facility] Comment on above: Performed By: #### U MICRO, ERUR #### [facility] [address] [place] [address] Dr. Shakira Bahena LEUKOCYTES TRACE Abnormal NEGATIVE [facility] Comment on above: Performed By: #### U MICRO, ERUR #### [facility] [address] [place] [address] Dr. Shakira Bahena Nitrite Ql (U) Negative Normal NEGATIVE [facility] Comment on above: Performed By: #### U MICRO, ERUR #### [facility] [address] [place] [address] Dr. Shakira Bahena pH (U) 5.5 [pH] Normal 5-9 [facility] Comment on above: Performed By: #### U MICRO, ERUR #### [facility] [address] [place] [address] [address] Shakira Bahena Protein (U) [Mass/Vol] 100 mg/dL Abnormal NEGAT XAVIER/ TRACE [facility] Comment on above: Performed By: #### U MICRO, ERUR #### [facility] [address] [place] [address] Dr. Shakira Bahena SPEC GRAVITY 1.010 Normal 1.005-<=1.02 5 [facility] Comment on above: Performed By: #### U MICRO, ERUR #### [facility] [address] [place] [address] Dr. Shakira Bahena UR MICRO IND INDICATED Normal [facility] Comment on above: Performed By: #### U MICRO, ERUR #### [facility] [address] [place] [address] Dr. Shakira Bahena Urobilinogen Qn (U) 1.0 {Navin'U}/dL Normal 0.2 - 1. 0 [facility] Comment on above: Performed By: #### U MICRO, ERUR #### [facility] [address] [place] [address] Dr. Shakira Bahena LACTATE/LACTIC ACIDon 2022 Lactate [Moles/Vol] 0.7 mmol/L Normal 0.4-2.0 [facility] Comment on above: Performed By: #### L ACT #### [facility] [address] [place] [address] Dr. Shakira Bahena PROF 14(COMP METB)on 023 Albumin [Mass/Vol] 3.5 g/dL Normal 3.4-5.0 [facility] Comment on above: Performed By: #### P T, PTT #### [facility] [address] [place] [address] Dr. Shakira Bahena Albumin/Globulin [Mass ratio] 1.1 {ratio} Normal [facility] Comment on above: Performed By: #### P T, PTT #### [facility] [address] [place] [address] Dr. Shakira Bahena ALP [Catalytic activity/Vol] 104 U/L Normal 46-116 [facility] Comment on above: Performed By: #### P T, PTT #### [facility] [address] [place] [address] Dr. Shakira Bahena ALT [Catalytic activity/Vol] 20 U/L Normal 14-59 [facility] Comment on above: Performed By: #### P T, PTT #### [facility] [address] [place] [address] Dr. Shakira Bahena Anion gap [Moles/Vol] 9.9 mmol/L Normal [facility] Comment on above: Performed By: #### P T, PTT #### [facility] [address] [place] [address] [address] Shakira Bahena AST [Catalytic activity/Vol] 24 U/L Normal 15-37 [facility] Comment on above: Performed By: #### P T, PTT #### [facility] [address] [place] [address] [address] Shakira Bahena Bilirubin [Mass/Vol] 0.4 mg/dL Normal 0.2-1.0 [facility] Comment on above: Performed By: #### P T, PTT #### [facility] [address] [place] [address] [address] Shakira Bahena Calcium [Mass/Vol] 8.6 mg/dL Normal 8.5-10.1 [facility] Comment on above: Performed By: #### P T, PTT #### [facility] [address] [place] [address] [address] Shakira Bahena Chloride [Moles/Vol] 106 mmol/L Normal 98-107 [facility] Comment on above: Performed By: #### P T, PTT #### [facility] [address] [place] [address] [address] Shakira Bahena CO2 [Moles/Vol] 26.3 mmol/L Normal 21.0-32.0 [facility] Comment on above: Performed By: #### P T, PTT #### [facility] [address] [place] [address] [address] Shakira Bahena Creatinine [Mass/Vol] 0.60 mg/dL Normal 0.55-1.02 [facility] Comment on above: Performed By: #### P T, PTT #### [facility] [address] [place] [address] [address] Shakira Bahena EGFR-AF TUVALUAN >60 Normal >=60 [facility] Comment on above: Performed By: #### P T, PTT #### [facility] [address] [place] [address] [address] Shakira Bahena EGFR-NON AF TUVALUAN >60 Normal >=60 [facility] Comment on above: Performed By: #### P T, PTT #### [facility] [address] [place] [address] Dr. Shakira Bahena Globulin (S) [Mass/Vol] 3.2 g/dL Normal [facility] Comment on above: Performed By: #### P T, PTT #### [facility] [address] [place] [address] [address] Shakira Bahena Glucose [Mass/Vol] 105 mg/dL Normal 74-106 [facility] Comment on above: Performed By: #### P T, PTT #### [facility] [address] [place] [address] Dr. Shakira Bahena Potassium [Moles/Vol] 4.2 mmol/L Normal 3.5-5.1 [facility] Comment on above: Performed By: #### P T, PTT #### [facility] [address] [place] [address] Dr. Shakira Bahena Protein [Mass/Vol] 6.7 g/dL Normal 6.4-8.2 [facility] Comment on above: Performed By: #### P T, PTT #### [facility] [address] [place] [address] Dr. Shakira Bahena Sodium [Moles/Vol] 138 mmol/L Normal 136-145 [facility] Comment on above: Performed By: #### P T, PTT #### [facility] [address] [place] [address] Dr. Shakira Bahena Urea nitrogen [Mass/Vol] 11.0 mg/dL Normal 7.0-18.0 [facility] Comment on above: Performed By: #### P T, PTT #### [facility] [address] [place] [address] Dr. Shakira Bahena Urea nitrogen/Creatinine [Mass ratio] 18.3 mg/mg Normal [facility] Comment on above: Performed By: #### P T, PTT #### [facility] [address] [place] [address] Dr. Shakira Bahena PROTIMEon 09-09-2022 INR Coag (PPP) [Relative time] 0.93 {INR} Normal [facility] Comment on above: Performed By: #### P T, PTT #### [facility] [address] [place] [address] Dr. Shakira Bahena INR GUIDELINES SEE BELOW Normal [facility] Comment on above: Result Comment: SHANA RED INR: 2.0 - 3.0 CONDITIONS NOT LISTED BELOW 2.5 - 3.5 FOR PROSTHETIC HEART VALVE REPLACEMENT 2.5 - 3.5 RECURRENT THROMBOSIS Performed By: #### P T, PTT #### [facility] [address] [place] [address] Dr. Shakira Bahena PT Coag (PPP) [Time] 9.9 s Normal 9.0-11.6 [facility] Comment on above: Performed By: #### P T, PTT #### [facility] [address] [place] [address] Dr. Shakira Bahena PTTon 09-09-2022 aPTT Coag (Bld) [Time] 28.0 s Normal 22.3-36.2 [facility] Comment on above: Performed By: #### P T, PTT #### [facility] [address] [place] [address] Dr. Shakira Bahena URINE MICROSCOPIC ONLYon BACTERIA NONE SEEN Normal NONE SEEN [facility] Comment on above: Performed By: #### U MICRO, ERUR #### [facility] [address] [place] [address] Dr. Shakira Bahena Bacteria identified Cx Nom (U) NOT INDICATED Normal [facility] Comment on above: Performed By: #### U MICRO, ERUR #### [facility] [address] [place] [address] Dr. Shakira Bahena CAST NONE SEEN Normal NONE SEEN [facility] Comment on above: Performed By: #### U MICRO, ERUR #### [facility] [address] [place] [address] Dr. Shakira Bahena Crystals LM Nom (Urine sed) NONE SEEN Normal NONE SEEN [facility] [facility] Comment on above: Performed By: #### U MICRO, ERUR #### [facility] [address] [place] [address] Dr. Shakira Bahena Epithelial cells LM Ql (Urine sed) FEW Abnormal NONE SEEN /RARE [facility] Comment on above: Performed By: #### U MICRO, ERUR #### [facility] [address] [place] [address] Dr. Shakira Bahena MUCOUS NONE SEEN Normal NONE SEEN [facility] Comment on above: Performed By: #### U MICRO, ERUR #### [facility] [address] [place] [address] Dr. Shakira Bahena RBC (U) [#/Vol] /uL Abnormal 0-2 [facility] Comment on above: Performed By: #### U MICRO, ERUR #### [facility] [address] [place] [address] Dr. Shakira Bahena WBC 2-5 Abnormal NONE SEEN [facility] Comment on above: Performed By: #### U MICRO, ERUR #### [facility] [address] [place] [address] Dr. Shakira Bahena MG MAMM SCREEN 3D ERLINDA CADon 08-31-2022 MG MAMM SCREEN 3D ERLINDA CAD Patient: ESMER BEACH Exam Date: 08/31/2022 : 1970 Gender:F Ordering : UVALDO ALBERTO [facility] Admission #: [id number] Family : Order #: [id number] CLICK HERE TO VIEW EXAM RADIOLOGY REPORT [...] lung cancer at age 64. LOCATION: [facility] BREAST COMPOSITION: Scattered areas fibroglandular density. [...] MD on 08/31/2022 at 14:10 Normal [facility] CBC AUTO DIFFon 12-16-2021 BASO # 0.1 103/ul Normal 0.0-0.1 [facility] Comment on above: Performed By: #### C BC #### [facility] [address] [place] [address] Dr. Shakira Bahena Basophils/100 WBC (Bld) 0.6 % Normal 0.2-2.0 [facility] Comment on above: Performed By: #### C BC #### [facility] [address] [place] [address] Dr. Shakira Bahena EO # 0.3 103/ul Normal 0.0-0.7 [facility] Comment on above: Performed By: #### C BC #### [facility] [address] [place] [address] Dr. Shakira Bahena Eosinophils/100 WBC (Bld) 1.7 % Normal 0.9-7.0 [facility] Comment on above: Performed By: #### C BC #### [facility] [address] [place] [address] Dr. Shakira Bahena Erythrocyte distribution width (RBC) [Ratio] 15.6 % Critically high 11.0-15.0 [facility] Comment on above: Performed By: #### C BC #### [facility] [address] [place] [address] Dr. Shakira Bahena Hematocrit (Bld) [Volume fraction] 50.7 % Critically high 36.0-48.0 [facility] Comment on above: Performed By: #### C BC #### [facility] [address] [place] [address] Dr. Shakira Bahena Hemoglobin (Bld) [Mass/Vol] 16.0 g/dL Normal 12.0-16.0 [facility] Comment on above: Performed By: #### C BC #### [facility] [address] [place] [address] Dr. Shakira Bahena IG # 0.06 10e3/ul Critically high 0.00-0.03 [facility] Comment on above: Performed By: #### C BC #### [facility] [address] [place] [address] Dr. Shakira Bahena IG % 0.4 % Normal 0.0-0.5 [facility] Comment on above: Performed By: #### C BC #### [facility] [address] [place] [address] Dr. Shakira Bahena LYMPH # 3.7 103/ul Normal 1.2-3.8 [facility] Comment on above: Performed By: #### C BC #### [facility] [address] [place] [address] Dr. Shakira Bahena Lymphocytes/100 WBC (Bld) 23.9 % Normal 20.5-60.0 [facility] Comment on above: Performed By: #### C BC #### [facility] [address] [place] [address] Dr. Shaikra Bahena MANUAL DIFF REQ NO Normal [facility] Comment on above: Performed By: #### C BC #### [facility] [address] [place] [address] Dr. Shakira Bahena MCH (RBC) [Entitic mass] 28.7 pg Normal 26.7-34.0 [facility] Comment on above: Performed By: #### C BC #### [facility] [address] [place] [address] Dr. Shakira Bahena MCHC (RBC) [Mass/Vol] 31.6 g/dL Normal 29.9-35.2 [facility] Comment on above: Performed By: #### C BC #### [facility] [address] [place] [address] Dr. Shakira Bahena MCV (RBC) [Entitic vol] 90.9 fL Normal 81.0-99.0 [facility] Comment on above: Performed By: #### C BC #### [facility] [address] [place] [address] Dr. Shakira Bahena MONO # 0.7 103/ul Normal 0.3-0.8 [facility] Comment on above: Performed By: #### C BC #### [facility] [address] [address] [address] Shakira Bahena Monocytes/100 WBC (Bld) 4.5 % Normal 1.7-12.0 [facility] Comment on above: Performed By: #### C BC #### [facility] [address] [address] [address] Shakira Bahena NEUT # 10.8 103/ul Critically high 1.4-6.5 [facility] Comment on above: Performed By: #### C BC #### [facility] [address] [place] [address] Dr. Shakira Bahena Neutrophils/100 WBC (Bld) 68.9 % Normal 43.0-75.0 [facility] Comment on above: Performed By: #### C BC #### [facility] [address] [place] [address] Dr. Shakira Bahena Platelet mean volume (Bld) [Entitic vol] 10.0 fL Normal 9.5-13.5 [facility] Comment on above: Performed By: #### C BC #### [facility] [address] [place] [address] Dr. Shakira Bahena PLT 309 103/ul Normal 150-450 [facility] Comment on above: Performed By: #### C BC #### [facility] [address] [place] [address] Dr. Shakira Bahena RBC 5.58 106/ul Critically high 4.20-5.40 [facility] Comment on above: Performed By: #### C BC #### [facility] [address] [place] [address] Dr. Shakira Bahena WBC 15.6 103/ul Critically high 4.0-11.0 [facility] Comment on above: Performed By: #### C BC #### [facility] [address] [place] [address] Dr. Shakira Bahena GLYCOHEMOGLOBIN A1Con 2021 ADA RECOMMENDATION SEE BELOW Normal [facility] Comment on above: Result Comment: ADA RECOMMENDED LIMIT 4.0 - 6.0 ADA THERAPEUTIC TARGET < 7.0 ACTION SUGGESTED > 7.0 Performed By: #### A 1C #### [facility] [address] [place] [address] Dr. Shakira Bahena Glucose [Mass/Vol] 120 mg/dL Normal [facility] Comment on above: Performed By: #### A 1C #### [facility] [address] [address] [address] Shakira Bahena HbA1c (Bld) [Mass fraction] 5.8 % Normal 4.5-6.2 [facility] Comment on above: Performed By: #### A 1C #### [facility] [address] [place] [address] Dr. Shakira Bahena LIPID PROFILEon 12-16-2021 CHOL-HDL RATIO NORM SEE BELOW Normal [facility] Comment on above: Result Comment: 3.3 - 4.4 LOW RISK 4.4 - 7.1 AVERAGE RISK 7.1 - 11.0 MODERATE RISK >11.0 HIGH RISK Performed By: #### P T, PTT #### [facility] [address] [place] [address] Dr. Shakira Bahena Cholesterol [Mass/Vol] 149 mg/dL Normal <=200 [facility] Comment on above: Performed By: #### P T, PTT #### [facility] [address] [place] [address] Dr. Shakira Bahena Cholesterol in HDL [Mass/Vol] 28 mg/dL Critically low 40-60 [facility] Comment on above: Performed By: #### P T, PTT #### [facility] [address] [place] [address] Dr. Shakira Bahena Cholesterol in LDL [Mass/Vol] 80.6 mg/dL Normal [facility] Comment on above: Performed By: #### P T, PTT #### [facility] [address] [place] [address] Dr. Shakira Bahena Cholesterol.total/Chol esterol in HDL [Mass ratio] 5.3 {ratio} Normal [facility] Comment on above: Performed By: #### P T, PTT #### [facility] [address] [address] [address] Shakira Bahena HDL NORMAL > or = 60 mg/dl - LO W CARDIOVASCULAR RISK <40 mg/dl - HIGH CARDIOVASCULAR RISK Normal [facility] Comment on above: Performed By: #### P T, PTT #### [facility] [address] [address] [address] Shakira Bahena LDL CALC NORMAL SEE BELOW Normal [facility] Comment on above: Result Comment: <100 mg/dl OPTIMAL 100 - 129 mg/dl NEAR OR ABOVE OPTIMAL 130 - 159 mg/dl BORDERLINE HIGH 160 - 189 mg/dl HIGH >190 mg/dl VERY HIGH Performed By: #### P T, PTT #### [facility] [address] [address] [address] Shakira Bahena Triglyceride [Mass/Vol] 202 mg/dL Critically high <=150 [facility] Comment on above: Performed By: #### P T, PTT #### [facility] [address] [address] [address] Shakira Bahena VLDL CALC 40.4 mg/dL Normal [facility] Comment on above: Performed By: #### P T, PTT #### [facility] [address] [place] [address] Dr. Shakira Bahena MICROALBUMIN, RAND URon 12-02 mALB <1.3 Normal <=30.0 [facility] Comment on above: Performed By: #### P T, PTT #### [facility] [address] [place] [address] Dr. Shakira Bahena PROF 14(COMP METB)on 022 Albumin [Mass/Vol] 3.5 g/dL Normal 3.4-5.0 [facility] Comment on above: Performed By: #### P T, PTT #### [facility] [address] [place] [address] Dr. Shakira Bahena Albumin/Globulin [Mass ratio] 1.0 {ratio} Normal [facility] Comment on above: Performed By: #### P T, PTT #### [facility] [address] [place] [address] Dr. Shakira Bahena ALP [Catalytic activity/Vol] 103 U/L Normal 46-116 [facility] Comment on above: Performed By: #### P T, PTT #### [facility] [address] [address] [address] Shakira Bahena ALT [Catalytic activity/Vol] 19 U/L Normal 14-59 [facility] Comment on above: Performed By: #### P T, PTT #### [facility] [address] [address] [address] Shakira Bahena Anion gap [Moles/Vol] 14.8 mmol/L Normal [facility] Comment on above: Performed By: #### P T, PTT #### [facility] [address] [place] [address] Dr. Shakira Bahena AST [Catalytic activity/Vol] 10 U/L Critically low 15-37 [facility] Comment on above: Performed By: #### P T, PTT #### [facility] [address] [place] [address] Dr. Shakira Bahena Bilirubin [Mass/Vol] 0.3 mg/dL Normal 0.2-1.0 [facility] Comment on above: Performed By: #### P T, PTT #### [facility] [address] [place] [address] Dr. Shakira Bahena Calcium [Mass/Vol] 8.6 mg/dL Normal 8.5-10.1 [facility] Comment on above: Performed By: #### P T, PTT #### [facility] [address] [place] [address] Dr. Shakira Bahena Chloride [Moles/Vol] 107 mmol/L Normal 98-107 [facility] Comment on above: Performed By: #### P T, PTT #### [facility] [address] [address] [address] Shakira Bahena CO2 [Moles/Vol] 23.1 mmol/L Normal 21.0-32.0 [facility] Comment on above: Performed By: #### P T, PTT #### [facility] [address] [place] [address] Dr. Shakira Bahena Creatinine [Mass/Vol] 0.79 mg/dL Normal 0.55-1.02 [facility] Comment on above: Performed By: #### P T, PTT #### [facility] [address] [address] [address] Shakira Bahena EGFR-AF TUVALUAN >60 Normal >=60 [facility] Comment on above: Performed By: #### P T, PTT #### [facility] [address] [address] [address] Shakira Bahena EGFR-NON AF TUVALUAN >60 Normal >=60 [facility] Comment on above: Performed By: #### P T, PTT #### [facility] [address] [place] [address] Dr. Shakira Bahena Globulin (S) [Mass/Vol] 3.4 g/dL Normal [facility] Comment on above: Performed By: #### P T, PTT #### [facility] [address] [place] [address] Dr. Shakira Bahena Glucose [Mass/Vol] 157 mg/dL Critically high 74-106 [facility] Comment on above: Performed By: #### P T, PTT #### [facility] [address] [place] [address] Dr. Shakira Bahena Potassium [Moles/Vol] 3.9 mmol/L Normal 3.5-5.1 [facility] Comment on above: Performed By: #### P T, PTT #### [facility] [address] [address] [address] Shakira Bahena Protein [Mass/Vol] 6.9 g/dL Normal 6.4-8.2 [facility] Comment on above: Performed By: #### P T, PTT #### [facility] [address] [place] [address] Dr. Shakira Bahena Sodium [Moles/Vol] 141 mmol/L Normal 136-145 [facility] Comment on above: Performed By: #### P T, PTT #### [facility] [address] [place] [address] Dr. Shakira Bahena Urea nitrogen [Mass/Vol] 13.0 mg/dL Normal 7.0-18.0 [facility] Comment on above: Performed By: #### P T, PTT #### [facility] [address] [place] [address] Dr. Shakira Bahena Urea nitrogen/Creatinine [Mass ratio] 16.5 mg/mg Normal [facility] Comment on above: Performed By: #### P T, PTT #### [facility] [address] [place] [address] Dr. Shakira Bahena UA RANDOM W/MICROSCOPICon BACTERIA NONE SEEN Normal NONE SEEN [facility] Comment on above: Performed By: #### P T, PTT #### [facility] [address] [place] [address] Dr. Shakira Bahena Bilirubin Ql (U) Negative Normal NEGATIVE [facility] Comment on above: Performed By: #### P T, PTT #### [facility] [address] [place] [address] Dr. Shakira Bahena CAST NONE SEEN Normal NONE SEEN [facility] Comment on above: Performed By: #### P T, PTT #### [facility] [address] [place] [address] Dr. Shakira Bahena Clarity (U) CLEAR Normal CLEAR [facility] Comment on above: Performed By: #### P T, PTT #### [facility] [address] [place] [address] Dr. Shakira Bahena Color (U) LT. YELLOW Normal YELLOW [facility] Comment on above: Performed By: #### P T, PTT #### [facility] [address] [place] [address] Dr. Shakira Bahena Crystals LM Nom (Urine sed) NONE SEEN Normal NONE SEEN [facility] Comment on above: Performed By: #### P T, PTT #### [facility] [address] [place] [address] Dr. Shakira Bahena Epithelial cells LM Ql (Urine sed) RARE Normal NONE SEEN /RARE [facility] Comment on above: Performed By: #### P T, PTT #### [facility] [address] [place] [address] Dr. Shakira Bahena Glucose Ql (U) 100 mg/dl Abnormal NEGATIVE [facility] Comment on above: Performed By: #### P T, PTT #### [facility] [address] [place] [address] Dr. Shakira Bahena Hemoglobin Ql (U) Negative Normal NEGATIVE [facility] Comment on above: Performed By: #### P T, PTT #### [facility] [address] [place] [address] Dr. Shakira Bahena Ketones Ql (U) Negative Normal NEGATIVE [facility] Comment on above: Performed By: #### P T, PTT #### [facility] [address] [place] [address] Dr. Shakira Bahena LEUKOCYTES Negative Normal NEGATIVE [facility] Comment on above: Performed By: #### P T, PTT #### [facility] [address] [place] [address] Dr. Shakira Bahena MUCOUS NONE SEEN Normal NONE SEEN [facility] Comment on above: Performed By: #### P T, PTT #### [facility] [address] [place] [address] Dr. Shakira Bahena Nitrite Ql (U) Negative Normal NEGATIVE [facility] Comment on above: Performed By: #### P T, PTT #### [facility] [address] [place] [address] Dr. Shakira Bahena pH (U) 6.0 [pH] Normal 5-9 [facility] Comment on above: Performed By: #### P T, PTT #### [facility] [address] [place] [address] Dr. Shakira Bahena RBC 0-2 Normal 0-2 [facility] Comment on above: Performed By: #### P T, PTT #### [facility] [address] [place] [address] Dr. Shakira Bahena SPEC GRAVITY 1.010 Normal 1.005-<=1.02 5 [facility] Comment on above: Performed By: #### P T, PTT #### [facility] [address] [place] [address] Dr. Shakira Bahena UA PROTEIN Negative Normal NEGATIVE/ TRACE [facility] Comment on above: Performed By: #### P T, PTT #### [facility] [address] [place] [address] Dr. Shakira Bahena Urobilinogen Qn (U) 0.2 {Navin'U}/dL Normal 0.2 - 1. 0 [facility] Comment on above: Performed By: #### P T, PTT #### [facility] [address] [place] [address] Dr. Shakira Bahena WBC NONE SEEN Normal NONE SEEN [facility] Comment on above: Performed By: #### P T, PTT #### [facility] [address] [place] [address] Dr. Shakira Bahena LUMBAR SPINE 4 OR 5 Son LUMBAR SPINE 4 OR 5 [facility] Department of Radiology [address] [place] [id number] ======== Patient Name: ESMER BEACH : [...] subluxation Electronically signed: Alma Lopez. Transcribed by: [email or web address], User Resident: Electronically Signed by: HUI MEAD @ 01/30/2020 11:27 AM Normal [facility] Comment on above: Order Comment: Views (X-RAY, LUMBAR SPINE): AP, Lateral, L5-S1 Spot, Flexion, Extension , Weight Bearing?: Y Remote CBCDIF (for [facility] use o nly)on 01-03-2019 Abs Baso 0.05 k/uL Normal 0.00-0.10 [facility] Abs [place] 0.90 k/uL High 0.00-0.86 [facility] Abs Neut 12.73 k/uL High 1.45-7.50 [facility] Basophils/100 WBC (Bld) 0.3 % Normal [facility] Eosinophils (Bld) [#/Vol] 0.27 10*3/uL Normal 0.00-0.45 [facility] Eosinophils/100 WBC (Bld) 1.5 % Normal [facility] Erythrocyte distribution width (RBC) [Ratio] 15.0 % Normal 11.5-15.0 [facility] Hematocrit (Bld) [Volume fraction] 46.9 % High 36.0-46.0 [facility] Hemoglobin (Bld) [Mass/Vol] 16.1 g/dL High 11.5-15.5 [facility] Lymphocytes (Bld) [#/Vol] 3.51 10*3/uL Normal 1.00-4.00 [facility] Lymphocytes/100 WBC (Bld) 20.1 % Normal [facility] MCH (RBC) [Entitic mass] 30.0 pG Normal 26.0-34.0 [facility] MCHC (RBC) [Mass/Vol] 34.3 g/dL Normal 30.5-36.0 [facility] MCV (RBC) [Entitic vol] 87.3 fL Normal 80.0-100.0 [facility] Monocytes/100 WBC (Bld) 5.2 % Normal [facility] Neutrophils/100 WBC (Bld) 72.9 % Normal [facility] Platelet mean volume (Bld) [Entitic vol] 9.4 fL Normal 9.0-12.7 [facility] Platelets (Bld) [#/Vol] 308 10*3/uL Normal 150-400 [facility] RBC (Bld) [#/Vol] 5.37 10*6/uL High 3.90-5.20 [facility] WBC (Bld) [#/Vol] 17.46 10*3/uL High 3.70-11.00 [facility] CNOVSPon 07-13-2018 CNOVSP Visit (SP) Office (HEMAC[facility]) ESMER BEACH ([id number]) 1970 F Date Time Provider Department 07/13/18 [...] Espinosa MD Referring Provider: LACY ALBERTO ([facility]) [[id number]] Allergies As of Date: 07/13/2018 Noted Allergy [...] (FOR REMOTE [facility] USE) [SQRCBCDF] Order #: [id number] STANDING Follow-up and Disposition History Recorded Prescriptions [...] [D72.829] INVALID FOR* Coronary artery disease involving [place]-cree heart *INVALID FOR* Diabetes mellitus (HCC) [E11.9] INVALID FOR* Psychiatric disorder [F99] INVALID FOR* Encounter Status:Closed by VANESSA ESPINOSA MD on 07/13/18 Normal [facility] PROGRESSon 07-13-2018 PROGRESS HNO ID: [id number] Author: Vanessa Espinosa Service: (none) Author Type: [...] CBC + DIFF (FOR REMOTE [facility] USE) Vanessa Espinosa MD Normal [facility] Remote CBCDIF (for [facility] use o nly)on 07-13-2018 Abs Baso 0.04 k/uL Normal 0.00-0.10 [facility] Abs [place] 0.82 k/uL Normal 0.00-0.86 [facility] Abs Neut 14.68 k/uL High 1.45-7.50 [facility] Basophils/100 WBC (Bld) 0.2 % Normal [facility] Eosinophils (Bld) [#/Vol] 0.15 10*3/uL Normal 0.00-0.45 [facility] Eosinophils/100 WBC (Bld) 0.8 % Normal [facility] Erythrocyte distribution width (RBC) [Ratio] 14.5 % Normal 11.5-15.0 [facility] Hematocrit (Bld) [Volume fraction] 47.2 % High 36.0-46.0 [facility] Hemoglobin (Bld) [Mass/Vol] 15.8 g/dL High 11.5-15.5 [facility] Lymphocytes (Bld) [#/Vol] 3.48 10*3/uL Normal 1.00-4.00 [facility] Lymphocytes/100 WBC (Bld) 18.2 % Normal [facility] MCH (RBC) [Entitic mass] 29.4 pG Normal 26.0-34.0 [facility] MCHC (RBC) [Mass/Vol] 33.5 g/dL Normal 30.5-36.0 [facility] MCV (RBC) [Entitic vol] 87.9 fL Normal 80.0-100.0 [facility] Monocytes/100 WBC (Bld) 4.3 % Normal [facility] Neutrophils/100 WBC (Bld) 76.5 % Normal [facility] Platelet mean volume (Bld) [Entitic vol] 9.3 fL Normal 9.0-12.7 [facility] Platelets (Bld) [#/Vol] 274 10*3/uL Normal 150-400 [facility] RBC (Bld) [#/Vol] 5.37 10*6/uL High 3.90-5.20 [facility] WBC (Bld) [#/Vol] 19.17 10*3/uL High 3.70-11.00 [facility] BCR-ABL Qualitativeon 2017 BCR-ABL Qualitative (NOTE) Normal [facility] Comment on above: Result Comment: Plea se refer to [facility] Surgical Pathology report, Performed By: #### C ALR, BCRQL #### [facility] [address] [address] Basic Metabolic Panlon 06-15 Anion gap [Moles/Vol] 12 mmol/L Normal 9-18 [facility] Comment on above: Performed By: #### Rosemarie AK2, BMP, HFP, WSR #### [facility] [address] [address] Calcium [Mass/Vol] 9.4 mg/dL Normal 8.5-10.[address] [facility] Comment on above: Performed By: #### Rosemarie AK2, BMP, HFP, WSR #### [facility] [address] [address] Chloride [Moles/Vol] 108 mmol/L High 97-105 [facility] Comment on above: Performed By: #### Rosemarie AK2, BMP, HFP, WSR #### [facility] [address] [phone] CO2 [Moles/Vol] 21 mmol/L Low 22-30 [facility] Comment on above: Performed By: #### Rosemarie AK2, BMP, HFP, WSR #### [facility] [address] [phone] Creatinine [Mass/Vol] 0.65 mg/dL Normal 0.58-0.96 [facility] Comment on above: Performed By: #### Rosemarie AK2, BMP, HFP, WSR #### [facility] [address] [place] [phone] eGFR- Amer. >[address] [facility] Comment on above: Performed By: #### YONI RUIZ HFP, GALEN #### [facility] [address] [phone] GFR/1.73 sq M predicted among non-blacks MDRD (S/P/Bld) [Vol rate/Area] mL/min/{1.73_m2} Normal [facility] Comment on above: Result Comment: eGFR (Estimated [...] By: #### YONI RUIZ HFP, WSR #### [facility] [address] [id number] Glucose [Mass/Vol] 187 mg/dL High 74-[address] [facility] Comment on above: Result Comment: The [place] [employer] (ADA) provides guidance for cutoff [...] Standards of Medical Care in Diabetes 2016, [place] [employer]. Diabetes Care. 2016.39(Suppl 1). Performed By: #### YONI RUIZ HFP, WSR #### [facility] [address] [place], [place] [address] Potassium [Moles/Vol] 4.7 mmol/L Normal 3.7-5.1 [facility] Comment on above: Performed By: #### Rosemarie AK2, BMP, HFP, WSR #### [facility] [address] [place], [place] [address] Sodium [Moles/Vol] 141 mmol/L Normal 136-[address] [facility] Comment on above: Performed By: #### Rosemarie AK2, BMP, HFP, WSR #### [place] [address] [place], [place] [address] Urea nitrogen [Mass/Vol] 14 mg/dL Normal 7-21 [facility] Comment on above: Performed By: #### Rosemarie AK2, BMP, HFP, WSR #### [address] [place] [place], [place] [address] CALR Exon 9 Mutationon 06-15 CALR Result/Interp Duplicate request Normal [facility] Comment on above: Result Comment: Acco unt Credited SEE RESULT FOR MPNP. 2017 Performed By: #### Elma WHEELER, BCRQL #### [address] [address] CALR Reviewed by Duplicate request Normal [facility] Comment on above: Result Comment: Acco unt Credited SEE RESULT FOR MPNP. 2017 Performed By: #### Elma ALR, BCRQL #### [address] [place], [place] [address] CALR Specimen Type Duplicate request Normal [facility] Comment on above: Result Comment: Acco unt Credited SEE RESULT FOR MPNP. 2017 Performed By: #### Elma ALR, BCRQL #### [facility] [address] [place], [place] [address] CNOVSPon 06-15-2018 CNOVSP Visit (SP) Office ([place]) [place] ([id number]) 1970 F Date Time Provider Department 06/15/18 11:15 AM VANESSA ESPINOSA HEMMARIE During your visit today, we recorded the [...] CT + CBC (FOR REMOTE [facility] USE) - BASIC METABOLIC PNL - HEPATIC FUNCTION PNL - SED RATE WESTERGREN - BCR-ABL QUALITATIVE MULTIPLEX RT-PCR - JAK2 V617F MUTATION BLOOD - MPL MUTATION ANALYSIS BLOOD - CALR EXON 9 MUTATION ANALYSIS BLOOD 2. 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, unspecified vessel or lesion type (HCC) [I25.118] Other specified diabetes mellitus without complication, with long-term current use of insulin (HCC) [E13.9, Z79.4] Psychiatric disorder [F99] Order(s):ABS GRAN CT + CBC (FOR REMOTE [facility] USE) [SQRAGCBC] Order #: [id number] FUTURE BASIC METABOLIC PNL [SQBMP] Order #: [id number] FUTURE HEPATIC FUNCTION PNL [SQHFP] Order #: [id number] FUTURE SED RATE WESTERGREN [SQWSR] Order #: [id number] FUTURE BCR-ABL QUALITATIVE MULTIPLEX RT-PCR [SQBCRQL] Order #: [id number] FUTURE JAK2 V617F MUTATION BLOOD [SQJAK2] Order #: [id number] FUTURE MPL MUTATION ANALYSIS BLOOD [SQMPL] Order #: [id number] FUTURE CALR EXON 9 MUTATION ANALYSIS BLOOD [SQCALR] Order #: [id number] FUTURE Disposition: Return in about 4 weeks [...] [D72.829] INVALID FOR* Coronary artery disease involving chippewa-cree heart *INVALID FOR* Diabetes mellitus (HCC) [E11.9] INVALID FOR* Psychiatric disorder [F99] INVALID FOR* Encounter Status:Closed by VANESSA EPSINOSA MD on 06/15/18 Normal [facility] Hepatic Functn Panelon 06-15 Albumin [Mass/Vol] 4.2 g/dL Normal 3.9-4.[address] [facility] Comment on above: Performed By: #### YONI RUIZ HFP, WSR #### [address] [place] [place] [address] ALP [Catalytic activity/Vol] 99 U/L Normal 34-123 [facility] Comment on above: Performed By: #### YONI RUIZ, HFP, WSR #### [place] [address] [place] [address] ALT [Catalytic activity/Vol] 18 U/L Normal 7-38 [facility] Comment on above: Performed By: #### Rosemarie AKYONI Irene, HFP, WSR #### [facility] [address] [place] [address] AST [Catalytic activity/Vol] 19 U/L Normal 13-35 [facility] Comment on above: Performed By: #### Rosemarie AKYONI Irene, HFP, WSR #### [facility] [address] [place] [id number] Bilirubin [Mass/Vol] mg/dL Low 0.2-1.3 [facility] Comment on above: Performed By: #### Rosemarie AKYONI Irene, HFP, WSR #### [facility] [address] [place] [address] Bilirubin,Conjugated <0.2 Normal <0.2 [facility] Comment on above: Performed By: #### Rosemarie AK2, BMP, HFP, WSR #### [facility] [address] [place] [address] Protein [Mass/Vol] 7.1 g/dL Normal 6.3-8.[address] [facility] Comment on above: Performed By: #### Rosemarie AK2, BMP, HFP, WSR #### [place] [address] [place] [address] JAK2 V617F Mutationon 2017 JAK2 V617F Interp Duplicate request Normal [facility] Comment on above: Result Comment: Acco unt Credited SEE RESULT FOR MPNP. 2017 Performed By: #### Rosemarie AK2, BMP, HFP, WSR #### [address] [place] [address] [place] [address] JAK2 V617F Spec Type Duplicate request Normal [facility] Comment on above: Result Comment: Acco unt Credited SEE RESULT FOR MPNP. 2017 Performed By: #### Rosemarie AK2, BMP, HFP, WSR #### [place] [address] [place] [address] Molecular Path Rev Duplicate request Normal [facility] Comment on above: Result Comment: Acco unt Credited SEE RESULT FOR MPNP. 2017 Performed By: #### Rosemarie AK2, BMP, HFP, WSR #### [facility] [address] [place] [address] MPL Mutationon 06-15-2018 MPL Mutation Interp Duplicate request Normal [facility] Comment on above: Result Comment: Acco unt Credited SEE RESULT FOR MPNP. 2017 Performed By: #### M PL #### [place] [address] [place] [address] Myeloprolif Neopl Pnl Bloodo n 06-15-2018 Myelo Neopl Pnl Bld (NOTE) Normal [facility] Comment on above: Result Comment: Balta henry refer to [facility] Surgical Pathology report, . Performed By: #### M PNP ####[facility] [id number] [place], [place] [id number] PROGRESSon 06-15-2018 PROGRESS HNO ID: [id number] Author: Vanessa Espinosa Service: (none) Author Type: [...] CT + CBC (FOR REMOTE [facility] USE) - BASIC METABOLIC PNL - HEPATIC FUNCTION PNL - SED RATE WESTERGREN - BCR-ABL QUALITATIVE MULTIPLEX RT-PCR - JAK2 V617F MUTATION BLOOD - MPL MUTATION ANALYSIS BLOOD - CALR EXON 9 MUTATION ANALYSIS BLOOD 2. 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, [...] CT + CBC (FOR REMOTE [facility] USE) - BASIC METABOLIC PNL - HEPATIC [...] F99 See above Vanessa Espinosa MD Normal [facility] Remote Abs Gran + CBC (for [facility] use only)on 06-15-2018 Absol Gran Count 12.48 k/uL High 1.45-7.50 [facility] Erythrocyte distribution width (RBC) [Ratio] 14.7 % Normal 11.5-15.0 [facility] Hematocrit (Bld) [Volume fraction] 46.8 % High 36.0-46.0 [facility] Hemoglobin (Bld) [Mass/Vol] 15.4 g/dL Normal 11.5-15.5 [facility] MCH (RBC) [Entitic mass] 29.2 pG Normal 26.0-34.0 [facility] MCHC (RBC) [Mass/Vol] 32.9 g/dL Normal 30.5-36.0 [facility] MCV (RBC) [Entitic vol] 88.8 fL Normal 80.0-100.0 [facility] Platelet mean volume (Bld) [Entitic vol] 9.1 fL Normal 9.0-12.7 [facility] Platelets (Bld) [#/Vol] 279 10*3/uL Normal 150-400 [facility] RBC (Bld) [#/Vol] 5.27 10*6/uL High 3.90-5.20 [facility] WBC (Bld) [#/Vol] 17.10 10*3/uL High 3.70-11.00 [facility] SURGICAL PATHOLOGYon 018 SURGICAL PATHOLOGY PROCEDURE REPORT Specimen originated from [facility] Specimen #: [id number] Submitting Physician: VANESSA ESPINOSA MD SPECIMEN SUBMITTED [...] this sample, and cDNA prepared by reverse records management director. Multiplex RT-PCR studies were performed using fluorescently [...] developed and its performance characteristics determined by [facility]'s [facility] [place] ([facility]). It has not been cleared or approved by the FDA. RT-PLGA is regulated under CLIA as qualified to [...] sequencing was performed on the Illumina instrument ([place], [place]). A customized bioinformatic pipeline was used to align the sequencing reads to the reference human genome (GRCh37/hg19). Benign common polymorphisms are not reported. Limitations: Sequence changes outside the analyzed regions, including intronic, noncoding, and splice-site variants, will not be identified by this test. The lower limit of detection of this assay is approximately 1% allele proportion for the JAK2 [id number] single nucleotide variant and approximately 5% allele [...] developed and its performance characteristics determined by [facility] [place] ([facility]). It has not been cleared or approved by the FDA. [facility] is regulated under CLIA as qualified to perform high-complexity testing. This test is used for clinical purposes. It should not be regarded as investigational or for research. As Reviewed by: Nahomy Galarza M.D. [facility]/la 06/22/18 References: Mark DA, Lux A, Raúl R, Zuri J, Borowitz MJ, Bessie Olvera MM, et al. The [...] Receipt: 06/16/2018 Submitted: VANESSA ESPINOSA MD Location: [facility] Diagnostic interpretation performed at [facility], [address] [place] [address]. Normal [facility] Sed Rate Westergrenon 2017 Sed Rate Westergren 2 mm/hr Normal 0-20 [facility] Comment on above: Performed By: #### J AK2, BMP, HFP, WSR #### [facility] [address] [place] [id number] Vital Signs Date Time Vital Sign Value Performing Clinician Facility 01-07-2025 13:25-0400 Body mass index (BMI) [Ratio] 31.78 kg/m2 Lacy Remy POWDER WORKER Work Phone: [facility] 01-07-2025 13:25-0400 Body temperature 98.49 [degF] Lacy Remy POWDER WORKER Work Phone: [facility] 01-07-2025 13:25-0400 Body weight 81.38 kg Lacy Remy POWDER WORKER Work Phone: [facility] 01-07-2025 13:25-0400 Diastolic blood pressure 80 mm[Hg] Lacy Remy POWDER WORKER Work Phone: [facility] 01-07-2025 13:25-0400 Heart rate 84 /min Lacy Remy POWDER WORKER Work Phone: [facility] 01-07-2025 13:25-0400 Respiratory rate 20 /min Lacy Remy POWDER WORKER Work Phone: [facility] 01-07-2025 13:25-0400 SaO2% (BldA) [Mass fraction] 98 % Lacy Remy POWDER WORKER Work Phone: [facility] 01-07-2025 13:25-0400 Systolic blood pressure 142 mm[Hg] Lacy Remy POWDER WORKER Work Phone: [facility] 10-18-2024 10:09-0400 Body height 160 cm Alicia Henry MD Work Phone: [facility] 10-18-2024 10:09-0400 Body mass index (BMI) [Ratio] 33.98 kg/m2 Alicia Henry MD Work Phone: [facility] 10-18-2024 10:09-0400 Body weight 87 kg Alicia Henry MD Work Phone: [facility] 10-18-2024 10:09-0400 Diastolic blood pressure 78 mm[Hg] Alicia Henry MD Work Phone: [facility] 10-18-2024 10:09-0400 Heart rate 100 /min Alicia Henry MD Work Phone: [facility] 10-18-2024 10:09-0400 SaO2% (BldA) [Mass fraction] 94 % Alicia Henry MD Work Phone: [facility] 10-18-2024 10:09-0400 Systolic blood pressure 124 mm[Hg] Alicia Henry MD Work Phone: [facility] 10-08-2024 13:06-0400 Body mass index (BMI) [Ratio] 33.83 kg/m2 Lacy Remy POWDER WORKER Work Phone: [facility] 10-08-2024 13:06-0400 Body temperature 98.1 [degF] Lacy Opalz POWDER WORKER Work Phone: [facility] 10-08-2024 13:06-0400 Body weight 86.64 kg Lacy Opalz POWDER WORKER Work Phone: [facility] 10-08-2024 13:06-0400 Diastolic blood pressure 78 mm[Hg] Lacy Opalz POWDER WORKER Work Phone: [facility] 10-08-2024 13:06-0400 Heart rate 89 /min Lacy Aichholz POWDER WORKER Work Phone: [facility] 10-08-2024 13:06-0400 Respiratory rate 20 /min Lacy Aichholz POWDER WORKER Work Phone: [facility] 10-08-2024 13:06-0400 SaO2% (BldA) [Mass fraction] 95 % Lacy Opalz POWDER WORKER Work Phone: [facility] 10-08-2024 13:06-0400 Systolic blood pressure 118 mm[Hg] Lacy Josephz POWDER WORKER Work Phone: [facility] 08-06-2024 15:11-0500 Body height 160 cm Layc Denisholz POWDER WORKER Work Phone: [facility] 08-06-2024 15:11-0500 Body mass index (BMI) [Ratio] 33.44 kg/m2 Lacy Denisholz POWDER WORKER Work Phone: [facility] 08-06-2024 15:11-0500 Body temperature 97.59 [degF] Lacy Denisholz POWDER WORKER Work Phone: [facility] 08-06-2024 15:11-0500 Body weight 85.64 kg Lacy Denisholz POWDER WORKER Work Phone: [facility] 08-06-2024 15:11-0500 Diastolic blood pressure 86 mm[Hg] Lacy Denisholz POWDER WORKER Work Phone: [facility] 08-06-2024 15:11-0500 Heart rate 107 /min Lacy Denisholz POWDER WORKER Work Phone: [facility] 08-06-2024 15:11-0500 Respiratory rate 20 /min Lacy Denisholz POWDER WORKER Work Phone: [facility] 08-06-2024 15:11-0500 SaO2% (BldA) [Mass fraction] 96 % Lacy Denisholz POWDER WORKER Work Phone: [facility] 08-06-2024 15:11-0500 Systolic blood pressure 142 mm[Hg] Lacy Denisholz POWDER WORKER Work Phone: [facility] 05-22-2024 09:00-0500 Body height 160 cm Lacy Denisholz POWDER WORKER Work Phone: [facility] 05-22-2024 09:00-0500 Body mass index (BMI) [Ratio] 34.33 kg/m2 Lacy Denisholz POWDER WORKER Work Phone: [facility] 05-22-2024 09:00-0500 Body temperature 98.49 [degF] Lacy Aichholz POWDER WORKER Work Phone: [facility] 05-22-2024 09:00-0500 Body weight 87.91 kg Lacy Aichholz POWDER WORKER Work Phone: [facility] 05-22-2024 09:00-0500 Diastolic blood pressure 78 mm[Hg] Lacy Aichholz POWDER WORKER Work Phone: [facility] 05-22-2024 09:00-0500 Heart rate 70 /min Lacy Aichholz POWDER WORKER Work Phone: [facility] 05-22-2024 09:00-0500 Respiratory rate 19 /min Lacy Aichholz POWDER WORKER Work Phone: [facility] 05-22-2024 09:00-0500 SaO2% (BldA) [Mass fraction] 97 % Lacy Aichholz POWDER WORKER Work Phone: [facility] 05-22-2024 09:00-0500 Systolic blood pressure 110 mm[Hg] Lacy Aichholz POWDER WORKER Work Phone: [facility] Healthcare Encounters Encounter Date Encounter Type Care Provider Facility Start: 02-25-2025 End: 02-25-2025 Refill Lacy Aichholz POWDER WORKER Work Phone: [facility] Comment on above: Type 2 diabetes josselin itus without complication, without long- term current use of insulin (HCC) (Primary Dx) Start: 02-20-2025 End: 02-21-2025 Telephone encounter Anne Velasquez RN [facility] Comment on above: Surgical Or Dental C learance Start: 02-13-2025 ambulatory Obdulio Rose MD Fa cility:[facility] Start: 01-07-2025 End: 01-07-2025 Bamboo flowsheet Lacy Aichholz POWDER WORKER Work Phone: [facility] Start: 01-07-2025 End: 01-07-2025 Bamboo flowsheet Lacy Aichholz POWDER WORKER Work Phone: [facility] Start: 01-07-2025 End: 01-07-2025 ambulatory LACY ALBERTO Not Available Start: 01-07-2025 End: 01-07-2025 Office outpatient visit 25 minutes Lacy Alberto POWDER WORKER Work Phone: [facility] Comment on above: Type 2 diabetes josselin itus with diabetic polyneuropathy, without long-term current use of insulin (HCC) (Primary Dx); Type 2 diabetes mellitus without complication, without long-term current use of insulin (HCC); Anxiety and depression ; Bipolar disorder, current episode mixed, mild (HCC); Cigarette nicotine dependence without complication; Colon cancer screening; Encounter for screening mammogram for malignant neoplasm of breast; Neuroforaminal stenosis of spine; Arteriosclerosis of coronary artery Start: 12-07-2024 End: 12-07-2024 Refill Lacy Alberto POWDER WORKER Work Phone: [facility] Comment on above: Type 2 diabetes josselin itus without complication, without long- term current use of insulin Start: 10-30-2024 End: 10-30-2024 Telephone encounter Chace Leary RN [facility] Comment on above: Cardiac Clearance Start: 10-29-2024 End: 10-29-2024 [facility] Start: 10-29-2024 End: 10-29-2024 [facility] Start: 10-29-2024 End: 10-29-2024 [facility] Start: 10-19-2024 End: 10-19-2024 Clinisync Result Encounter Generic External Data Provider [facility] External Department Unsolicited Start: 10-19-2024 End: 10-19-2024 Clinisync Result Encounter Generic External Data Provider [facility] External Department Unsolicited Start: 10-18-2024 End: 10-18-2024 Office outpatient new 45 minutes Alicia Henry MD Work Phone: [facility] Comment on above: Pre-op testing (Prim maria ines Dx); Coronary artery disease involving chippewa-cree coronary artery of chippewa-cree heart without angina pectoris; Dyspnea, unspecified type Start: 10-18-2024 End: 10-18-2024 Patient encounter status Alicia Henry MD Work Phone: [facility] Start: 10-18-2024 End: 10-18-2024 ambulatory [facility] Start: 10-18-2024 Encounter for other preprocedural examination [facility] Start: 10-17-2024 End: 10-17-2024 Telephone encounter Dee Yu [facility] Start: 10-08-2024 End: 10-08-2024 Bamboo flowsheet Lacy Alberto POWDER WORKER Work Phone: [facility] Start: 10-08-2024 End: 10-08-2024 Bamboo flowsheet Lacy Alberto POWDER WORKER Work Phone: [facility] Start: 10-08-2024 End: 10-08-2024 ambulatory LACY ALBERTO Not Available Start: 10-08-2024 End: 10-08-2024 Office outpatient visit 25 minutes Lacy Alberto POWDER WORKER Work Phone: [facility] Comment on above: Anxiety and depressi [...] 09-24-2024 End: 09-24-2024 ambulatory Fred Pryor MD Facility: [facility] Start: 09-10-2024 End: 09-10-2024 ambulatory Fred Pryor MD Facility: [place] Start: 08-28-2024 End: 08-28-2024 Refill Lacynatanael Alberto POWDER WORKER Work Phone: [facility] Comment on above: URI, acute (Primary Dx) Start: 08-27-2024 End: 08-27-2024 ambulatory Fred Pryor MD Facility: [facility] Start: 08-10-2024 End: 08-10-2024 Clinisync Result Encounter Generic External Data Provider [facility] External Department Unsolicited Start: 08-10-2024 End: 08-10-2024 Clinisync Result Encounter Generic External Data Provider [facility] External Department Unsolicited Start: 08-06-2024 End: 08-06-2024 Office outpatient visit 25 minutes Lacy Alberto POWDER WORKER Work Phone: [facility] Comment on [...] myelopathy Start: 08-06-2024 End: 08-06-2024 ambulatory LACY AICHHOLZ Not Available Start: 08-06-2024 End: 08-06-2024 Bamboo flowsheet Lacy Opalz POWDER WORKER Work Phone: [facility] Start: 08-06-2024 End: 08-06-2024 Bamboo flowsheet Lacy Juniorhholz POWDER WORKER Work Phone: [facility] Start: 07-30-2024 End: 07-30-2024 ambulatory Fred Pryor MD Facility:[facility] [place] Start: 07-23-2024 End: 07-23-2024 Orders Only Lacy Alberto POWDER WORKER Work Phone: 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 (Primary Dx) Start: 06-25-2024 End: 06-25-2024 Telephone encounter Lacy Alberto POWDER WORKER Work Phone: [facility] Start: 05-28-2024 End: 05-28-2024 Refill Lacy Remy POWDER WORKER Work Phone: [facility] Comment on above: Type 2 diabetes josselin itus without complication, without long- term current use of insulin (CMS/HCC) (Primary Dx) Start: 05-22-2024 End: 05-22-2024 Bamboo flowsheet Lacynatanael Alberto POWDER WORKER Work Phone: [facility] Start: 05-22-2024 End: 05-22-2024 Bamboo flowsheet Lacynatanael Alberto POWDER WORKER Work Phone: [facility] Start: 05-22-2024 End: 05-22-2024 Patient encounter procedure Lacy Alberto POWDER WORKER Work Phone: [facility] Comment on above: Encounter for subseq [...] Start: 04-30-2024 End: 05-01-2024 Refill Lacy Aichholz POWDER WORKER Work Phone: [facility] Comment on above: Type 2 diabetes josselin itus without complication, without long- term current use of insulin ([facility]) Start: 04-05-2024 End: 04-05-2024 Refill Lacy Aichholz POWDER WORKER Work Phone: [facility] Comment on above: Type 2 diabetes josselin itus without complication, without long- term current use of insulin ([facility]) Start: 03-23-2024 End: 03-23-2024 Clinisync Result Encounter Lacy Aichholz POWDER WORKER Work Phone: [facility] External Department Unsolicited Start: 03-23-2024 End: 03-23-2024 Clinisync Result Encounter Lacy Aichholz POWDER WORKER Work Phone: [facility] External Department Unsolicited Start: 03-23-2024 End: 03-23-2024 Refill Lacy Aichholz POWDER WORKER Work Phone: [facility] Comment on above: Type 2 diabetes josselin itus without complication, without long- term current use of insulin ([facility]) (Primary Dx) Start: 02-27-2024 End: 02-27-2024 Telephone encounter Lacy Aichholz POWDER WORKER Work Phone: [facility] Start: 09-09-2022 End: 09-10-2022 ambulatory PERMACULTURE DESIGNER LACY AICHHOLZ Facility:[facility] Start: 08-31-2022 End: 09-01-2022 ambulatory PERMACULTURE DESIGNER LACY AICHHOLZ Facility:[facility] Start: 06-07-2022 End: 06-08-2022 ambulatory PERMACULTURE DESIGNER LACY AICHHOLZ Facility:[facility] Start: 12-16-2021 End: 12-17-2021 ambulatory PERMACULTURE DESIGNER LACY AICHHOLZ Facility:[facility] Procedures Date Procedure Procedure Detail Performing Clinician Start: 01-07-2025 Hemoglobin glycosyla ronna a1c Lacy Aichholz POWDER WORKER Work Phone: Start: 10-19-2024 XR CHEST 2V Generic Ex ternal Data Provider Start: 10-19-2024 ALL CBC WITH AUTO DIFF Generic External Data Provider Start: 10-18-2024 Ecg routine ecg w/le ast 12 lds w/i&r Alicia Henry MD Work Phone: Start: 10-08-2024 Mammography Lacy means POWDER WORKER Work Phone: Start: 10-05-2024 XR CERVICAL SPINE 5V Ge neric External Data Provider Start: 10-05-2024 XR LUMBAR SPINE MIN 4V Generic External Data Provider Start: 08-10-2024 Mri spinal canal cervical w/o contrast matrl Generic External Data Provider Start: 08-06-2024 Hemoglobin glycosyla ronna a1c Lacy Alberto POWDER WORKER Work Phone: Start: 03-23-2024 ALL CBC WITH AUTO DIFF Lacy Alberto POWDER WORKER Work Phone: Start: 11-17-2023 Mammography Lacy means POWDER WORKER Work Phone: Start: 11-17-2020 H/O: surgery S/P nasal septoplasty Rosemarie Yu CMA Plan of Treatment Date Care Activity Detail Author Start: 10-29-2025 Tobacco Screening Tobacco Screening [facility] Start: 10-18-2025 Adult BMI Screening Adult BMI Screen ing [facility] Start: 10-18-2025 Tobacco Screening Tobacco Screening [facility] Start: 10-08-2025 Screening for malign ant neoplasm of breast Mammogram [facility] Start: 10-08-2025 Screening for malign ant neoplasm of colon Colorectal Cancer Screening [facility] Comment on above: Postponed from 01/05 (Patient Refused) Start: 06-04-2025 End: 06-04-2025 Patient encounter procedure 06/04/2025 10:00 AM EST Office Visit [facility] [address] [place] [phone] Lacy Alberto NP [address] [place] [phone] [facility] Start: 05-22-2025 Medicare Annual Well ness (AWV) Medicare Annual Wellness (AWV) [facility] Start: 04-23-2025 End: 04-23-2025 Patient encounter procedure 04/23/2025 12:15 PM EDT Office Visit [facility] [address] [place] [phone] Billy Caruso MD [address] [place] [address] Obie Mitchell MD [address] [place] [phone] [facility] Start: 04-09-2025 Hemoglobin A1c measurement Irene betes: Hemoglobin A1C [facility] Start: 04-09-2025 End: 04-09-2025 Patient encounter procedure 04/09/2025 1:00 PM EDT Office Visit [facility] [address] [place] [address] Lacy Alberto, DOMINIC [address] [place] [address] [facility] Start: 03-29-2025 End: 03-29-2025 Patient encounter procedure 03/29/2025 12:45 PM EDT Office Visit [facility] [address] [place] [phone] Billy Caruso MD [address] [place] [address] [facility] Start: 03-23-2025 Urine screening for protein Diabetes: Urine Protein Screening [facility] Start: 03-04-2025 Influenza vaccination Influenza Vacc ine [facility] Start: 01-07-2025 End: 03-10-2026 MG Breast - bilateral Screening Bilateral screening mammogram Imaging Routine Encounter for screening mammogram for malignant neoplasm of breast Expected: 01/07/2025 (Approximate), Expires: 03/10/2026 [facility] Work Phone: Comment on above: Expected: 01/07/2025 (Approximate), Expires: 03/10/2026 Start: 01-07-2025 End: 01-07-2025 Patient encounter procedure 01/07/2025 1:20 PM EDT Office Visit [facility] [address] [place] [address] Lacy Alberto NP [address] [place] [address] [facility] Start: 11-16-2024 Screening for malign ant neoplasm of breast Mammogram [facility] Start: 11-16-2024 Screening for malign ant neoplasm of colon [facility] Start: 11-03-2024 Hemoglobin A1c measurement Irene betes: Hemoglobin A1C [facility] Start: 10-29-2024 End: 10-29-2024 Patient encounter procedure [facility] Start: 10-18-2024 End: 10-18-2025 NM Heart Perfusion W stress and W radionuclide IV Nuc stress Lexiscan Cardiac Services Routine Coronary artery disease involving chippewa-cree coronary artery of chippewa-cree heart without angina pectoris Dyspnea, unspecified type Expected: 10/18/2024, Expires: 10/18/2025 [facility] Work Phone: Comment on above: Expected: 10/18/2024 , Expires: 10/18/2025 Start: 10-18-2024 End: 10-18-2024 Patient encounter procedure 10/18/2024 10:30 AM EDT [facility] [address] [place] [address] Alicia Henry MD [address] [place] [address] [facility] Start: 10-08-2024 End: 10-08-2024 Patient encounter procedure 10/08/2024 1:00 PM EDT Office Visit [facility] [address] [place] [address] Lacy Alberto NP [address] [place] [address] [facility] Start: 08-06-2024 End: 08-06-2024 Patient encounter procedure [facility] Comment on above: Arteriosclerosis of coronary [...] procedure 07/11/2024 2:40 PM EST Office Visit [facility] [address] [place] [address] Lacy Alberto NP [address] [place] [address] [facility] Start: 06-22-2024 Hemoglobin A1c measurement Irene betes: Hemoglobin A1C [facility] Start: 06-21-2024 End: 06-21-2024 Patient encounter procedure 06/21/2024 10:30 AM EST Office Visit [facility] [address] [place] [address] Lacy Alberto NP [address] [place] [address] [facility] Start: 05-22-2024 End: 05-22-2025 MR Lumbar spine WO contrast MR lumbar spine wo contrast Imaging Routine Spondylosis of 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 Expected: 05/22/2024 (Approximate), Expires: 05/22/2025 [facility] Work Phone: Comment on above: Expected: 05/22/2024 (Approximate), Expires: 05/22/2025 Start: 05-22-2024 End: 05-22-2024 Patient encounter procedure [facility] Comment on above: BMI 32.0-32.9,adult (Primary Dx); Type 2 diabetes mellitus with diabetic polyneuropathy (CMS/HCC); Angina pectoris, unspecified (CMS/HCC); Chronic obstructive pulmonary disease, unspecified (CMS/HCC); Type 2 diabetes mellitus without complication, without long-term current use of insulin (CMS/HCC); Arteriosclerosis of coronary artery ([facility]/HCC); Tobacco use; Mixed hyperlipidemia ([facility]/HCC) Start: 03-04-2024 Influenza vaccination Influenz a Vaccine (#1) [facility] Start: 01-21-2023 Adult BMI Screening Adult BMI Screen ing [facility] Start: 12-19-2020 Hemoglobin A1c measurement Irene betes: Hemoglobin A1C [facility] Start: 01-05-2018 Administration of varicella zoster vaccine Zoster (Shingles) Vaccine (1 of 2) [facility] Start: 01-05-1998 Screening for malign ant neoplasm of cervix HPV/Cotest [facility] Start: 01-05-1989 Screening for malign ant neoplasm of cervix Pap Smear [facility] Start: 01-05-1987 DTaP,Tdap and Td Vac cines (1 - Tdap) DTaP,Tdap and Td Vaccines (1 - Tdap) [facility] Start: 01-05-1987 Urine screening for protein Diabetes: Urine Protein Screening [facility] Start: 01-05-1986 Adult BMI Follow Up Plan Adult BMI Follow Up Plan [facility] Start: 1980 Depression Screening Depression Scre ening [facility] Start: 1980 Tobacco Screening Tobacco Screening [facility] Start: 01-05-1978 Glaucoma screening Diabetes: R etinopathy Screening [facility] Start: 1968 Medicare Annual Well ness (AWV) Medicare Annual Wellness (AWV) [facility] Start: 1968 Screening for malign ant neoplasm of colon [facility] Start: 1968 Tobacco Counseling Tobacco Counselin g [facility] Payers Date Payer Category Payer Unknown 2019 Medicare (Managed Care) [facility] Member Subscriber Plan / Payer (Effective 2019-Present) Name: Esmer Beach Relation to Subscriber: Self Name: Esmer Beach Payer ID: Not on file Group ID: [id number] Type: Not on file Address: [address] [id number] 2019 Medicare O ANTHEM MEDICARE [id number] 2016 Medicaid [id number] 2015 Medicare [id number] [id number]. [id number] 1968 Unknown [id number] 2.16.840.1.079421.3.579.2. 593 1968 Unknown [id number] 2.16.840.1.507748.3.579.2. 593 1968 Unknown [id number] 2.16.840.1.064374.3.579.2. 593 1968 Unknown [id number] 2.16.840.1.937393.3.579.2. 593 1968 Unknown [id number] 2.16.840.1.856803.3.579.2. 1285 1968 Unknown [id number] 2.16.840.1.643580.3.579.2. 1285 1968 Unknown [id number] 2.16.840.1.203663.3.579.2. 128 1968 Unknown [id number] 2.16.840.1.989389.3.579.2. 128 1968 Unknown [id number] 2.16.840.1.654866.3.579.2. 1285 1968 Unknown [id number] 2.16.840.1.148084.3.579.2. 1258 1968 Unknown [id number] 2.16.840.1.178983.3.579.2. 1258 1968 Unknown [id number] 2.16.840.1.797190.3.579.2. 1258 1968 Unknown [id number] 2.16.840.1.104861.3.579.2. 1258 1968 Unknown [id number] 2.16.840.1.196864.3.579.2. 1968 Unknown [id number] 2.16.840.1.643266.3.579.2. 1968 Unknown [id number] 2.16.840.1.482477.3.579.2. 1968 Unknown [id number] 2.16.840.1.378079.3.579.2. 1968 Unknown [id number] 2.16.840.1.068942.3.579.2. 196 1959 Medicaid [id number] 1961 Unknown [id number] Social History Date Type Detail Facility Start: 11-17-2023 End: 10-29-2024 Tobacco smoking status NHIS Smokes tobacco daily [facility] History of tobacco use Cigarette Smoker [facility] Start: 11-17-2023 End: 10-29-2024 Tobacco use and exposure Smokeless tobacco non-user [facility] Start: 11-17-2023 End: 01-07-2025 Alcoholic beverage intake Lifetime non-drinker (finding) [facility] Start: 11-17-2023 End: 05-22-2024 History of Social function [facility] Start: 11-17-2023 End: 05-22-2024 Tobacco use panel [facility] Start: 11-17-2023 Alcohol Comment caffine: 2 cup s of coffe and 6 soda daily [facility] Start: 1970 Sex assigned at Not on file N [facility] Start: 02-03-2022 End: 10-29-2024 Alcoholic beverage intake Current non-drinker of alcohol (finding) [facility] Do you belong to any clubs or organizations such as zoroastrianism groups, unions, fraternal or athletic groups, or school groups? No [facility] Are you now , , , , never or living with a partner? [facility] Frequency of Alcohol Consumption Never [facility] Do you feel stress - tense, restless, nervous, or anxious, or unable to sleep at night because your mind is troubled all the time - these days [OSQ] Only a little [facility] Start: 12-12-2015 Sex Female (finding) [facility] Medical Equipment Procedure Code Equipment Code Equipment Origin al Text Equipment Identifier Dates Benjy Xience Sierr a 3.5x15 Rx - [id number] ()[id number] FDA Start: 03-13-2020 Benjy Xience Sierr a 3.5x8 Rx - [id number] ()[id number] FDA Start: 03-13-2020 Benjy Xience Sierr a 3x15 Rx - [id number] ()[id number] [facility] Start: 03-13-2020 Goals Date Patient Goal Desired Activity /State Personal health goal Comment on above: Formatting of this n ote might be different from the original. Evaluation of progress towards goal: feeling much better, moving well with therapy Clinical Notes 02-27-2024 to 02-20-2025 Telephone Encounter - Anne Velasquez RN - 02/20/2025 11:44 AM EDTTelephone Encounter - Alicia Henry MD - 02/20/2025 11:44 AM EDTTelephone Encounter - Shari Gould RN - 02/20/2025 11:44 AM EDT Note Date & Type Note Facility 02-20-2025 Miscellaneous Notes Surgeon: Dr. Obdulio Rose Type of surgery: Anterior Cervical Discectomy Fusion C5-7 Date of surgery: 03/26/25 Surgery location: [facility] Type of anesthesia: General On a blood thinner?: N/A On an antiplatelet?: ASA 81 mg Date of last EK10/18/24- Lexiscan 10/29/24 Last office visit date and who they saw: 10/18/24 Dr. Henry History of CVA/TIA, DVT/PE? None known Was cleared for similar surgery after 10/29/24 Lexiscan. Can she be cleared w/ same risk? Yes she has a moderate non prohibitive preoperative cardiovascular risk and can proceed without further testing. Aspirin can be held 2-3 days perioperatively Clearance note faxed back documented in this encounter [facility] 02-20-2025 Telephone encounter Note Surgeon: Dr. Obdulio Rose Type of surgery: Anterior Cervical Discectomy Fusion C5-7 Date of surgery: 03/26/25 Surgery location: [facility] Type of anesthesia: General On a blood thinner?: N/A On an antiplatelet?: ASA 81 mg Date of last EK10/18/24- Lexiscan 10/29/24 Last office visit date and who they saw: 10/18/24 Dr. Henry History of CVA/TIA, DVT/PE? None known Was cleared for similar surgery after 10/29/24 Lexiscan. Can she be cleared w/ same risk[email or web address] 02-20-2025 Telephone encounter Note Yes she has a moderate non prohibitive preoperative cardiovascular risk and can proceed without further testing. Aspirin can be held 2-3 days perioperatively [facility] 02-20-2025 Telephone encounter Note Clearance note faxed back [facility] 01-07-2025 History of Present illness Narrative Associated Problem(s): Arteriosclerosis of coronary artery Non compliant with taking asa and crestor I explained reason it should be taken and consequences of not taking this Associated Problem(s): Colon cancer screening refused Associated Problem(s): Cigarette nicotine dependence without complication The patient has been advised of the risks of continued smoking: stroke, GA, all forms of cancer, lung disease, and . Options for quitting smoking include: cold turkey, hypnosis, acupuncture, nicotine replacement meds (gum, lozenges, and patches), Buproprion, and Varenicline. At this time pt is encouraged to evaluate their goals for wanting to quit smoking, and reach out to provider when ready to start this process Would like to discuss changing the directions to her frank Images from the original note were not included. Esmer Beach is a 55 y.o. female presents with chief complaint of Diabetes HPI: Had a visiting nurse: brought up her gabapentin: every 8 hours is how it is ordered. Takes for pain, takes 2 at bedtime only no other doses, does help Depression/anxiety/mood: no SI/HI/hallucinations, feels meds are good Diabetes She presents for her follow-up diabetic visit. She has type 2 diabetes mellitus. Her disease course has been improving. There are no hypoglycemic associated symptoms. Pertinent negatives for hypoglycemia include no dizziness, headaches, nervousness/anxiousness, seizures or tremors. Associated symptoms include foot paresthesias and visual change. Pertinent negatives for diabetes include no chest pain, no polydipsia, no polyphagia and no polyuria. There are no hypoglycemic complications. Symptoms are stable. Diabetic complications include heart disease and peripheral neuropathy. Risk factors for coronary artery disease include diabetes mellitus, dyslipidemia and tobacco exposure. Current diabetic treatments: GLP 1 ozempic 1mg weekly. (Does not check sugars) An JOHNNY inhibitor/angiotensin II receptor christiano is not being taken. Eye exam is not current. SUBJECTIVE: MEDICATIONS: Current Outpatient Medications Medication Instructions ARIPiprazole (ABILIFY) 5 mg, Oral, Daily aspirin 81 mg, Daily RT Continuous Glucose Steel Rule Inspector (FreeStyle Helen 2 [place]) device 1 each, Does not apply, Daily Continuous Glucose Sensor (FreeStyle Helen 2 Sensor) misc USE DIRECTED to test BLOOD SUGAR change EVERY 14 days escitalopram (LEXAPRO) 10 mg, Oral, Daily gabapentin (NEURONTIN) 300 mg, 3 times daily Ozempic (1 MG/DOSE) 1 mg, Subcutaneous, Weekly rosuvastatin (CRESTOR) 10 mg, Daily RT ALLERGIES: Allergies Allergen Reactions Atorvastatin Other legs [...] allergies and food allergies. PAST MEDICAL HISTORY No past medical history on file. Past Surgical History: Procedure Laterality Date CT GUIDED TRANSVAGINAL TRANSRECTAL FLUID DRAIN 09/17/2020 CT GUIDED TRANSVAGINAL TRANSRECTAL FLUID DRAIN 09/17/2020 IR ANGIOGRAM INTRAVASCULAR US Left 03/13/2020 IR ANGIOGRAM INTRAVASCULAR US 03/13/2020 family history is not on file. OBJECTIVE: Visit Vitals Smoking Status Every Day Physical Exam Vitals and nursing note reviewed. [...] Normal pulses. Heart sounds: Normal heart sounds. No murmur heard. Pulmonary: Effort: Pulmonary effort is normal. Breath sounds: Normal breath sounds. No wheezing or rhonchi. Abdominal: General: Bowel sounds are normal. There is no distension. Palpations: Abdomen is soft. There is no mass. Tenderness: There is no abdominal tenderness. Musculoskeletal: Cervical back: Normal range of motion and neck supple. Right lower leg: No edema. Left lower leg: No edema. Comments: DTR s 2+ bilat UE/LE Cervical: +tight trap, limited ROM cervical MMT 5/5 bilat UE/LE Lymphadenopathy: Cervical: No cervical adenopathy. Skin: General: [...] Visit Bipolar disorder, current episode mixed, mild (HCC) Current meds: abilify and lexapro No dose changes Anxiety and depression Current meds lexapro and abilify Type 2 diabetes mellitus without complication, without long-term current use of insulin (HCC) - Primary Check blood sugars daily, notify [...] does not want insulin back again) Relevant Orders POCT glycosylated hemoglobin (Hb A1C) docked device (Completed) Encounter for screening mammogram for malignant neoplasm of breast Relevant Orders Bilateral screening mammogram Type 2 diabetes mellitus with diabetic polyneuropathy (HCC) Recommend good blood glucose control Freq foot examinations or s/s open wounds Proper fitting shoes as well Relevant Medications Semaglutide, 2 MG/DOSE, (Ozempic, 2 MG/DOSE,) 8 MG/3ML solution pen-injector Neuroforaminal stenosis of spine Relevant Medications gabapentin (Neurontin) 300 MG capsule Cigarette nicotine dependence without complication The patient has been advised of the risks of continued smoking: stroke, GA, all forms of cancer, lung disease, and . Options for quitting smoking include: cold turkey, hypnosis, acupuncture, nicotine replacement meds (gum, lozenges, and patches), Buproprion, and Varenicline. At this time pt is encouraged to evaluate their goals for wanting to quit smoking, and reach out to provider when ready to start this process Colon cancer screening refused Associated Problem(s): Type 2 diabetes mellitus with diabetic polyneuropathy (HCC) Recommend good blood glucose control Freq foot examinations or s/s open wounds Proper fitting shoes as well Associated Problem(s): Bipolar disorder, current episode mixed, mild (HCC) Current meds: abilify and lexapro No dose changes Associated Problem(s): Anxiety and depression Current meds lexapro and abilify Associated Problem(s): Type 2 diabetes mellitus without complication, without long-term current use of insulin (HCC) Check blood sugars daily, notify if <70 [...] metformin, does not want insulin back again) documented in this encounter [facility] 01-07-2025 Instructions Lacy Alberto NP - 01/07/2025 1:20 PM EDT Dose of gabapentin changed to 2 pills at bedtime only Increase ozempic to 2mg every 7 days Will fax order to [facility] for Mammogram, they should call you documented in this encounter [facility] 10-30-2024 Miscellaneous Notes Images from the original note were not included. Chace Leary RN 10/30/2024 10:05 AM EDT Back to Top R/c from Pt. Stress results and MBOs recommendations called and reviewed with patient. Pt v/u we will fax the preop clearance today to Dr. Estes's office. She v/u to restart ASA and crestor d/t abnormal testing and will call the office for any further updates/questions. Chace Leary RN 10/30/2024 9:19 AM EDT LMOM (ok-hipaa) with stress results and MBOs recommendations. Tassel Clipper asked for r/c to office to further discuss. Alicia Henry MD 10/30/2024 8:56 AM EDT Moderate preoperative cardiovascular risk non prohibitive, can proceed with surgery She has to restart taking aspirin and Crestor and she has to understand that the test is abnormal and if she continues to not take medication she will need another heart catheterization within the next couple of years Preop clearance letter per MBO faxed via [employer] to Dr. Coles's office with [facility]. Fax confirmed sent via [employer]. documented in this encounter [facility] 10-30-2024 Telephone encounter Note Images from the original note were not included. Chace Leary RN 10/30/2024 10:05 AM EDT Back to Top R/c from Pt. Stress results and MBOs recommendations called and reviewed with patient. Pt v/u we will fax the preop clearance today to Dr. Estes's office. She v/u to restart ASA and crestor d/t abnormal testing and will call the office for any further updates/questions. Chace Leary RN 10/30/2024 9:19 AM EDT [facility] (ok-hipaa) with stress results and MBOs recommendations. Tassel Clipper asked for r/c to office to further discuss. Alicia Henry MD 10/30/2024 8:56 AM EDT Moderate preoperative cardiovascular risk non prohibitive, can proceed with surgery She has to restart taking aspirin and Crestor and she has to understand that the test is abnormal and if she continues to not take medication she will need another heart catheterization within the next couple of years [facility] 10-30-2024 Telephone encounter Note Preop clearance letter per MBO faxed via [employer] to Dr. Coles's office with [facility]. Fax confirmed sent via [employer]. [facility] 10-18-2024 History of Present illness Narrative Esmer Beach Date of visit: 10/18/2024 Date of : 1970 Age: 54 y.o. Patient Active Problem List Diagnosis Spondylosis without myelopathy or radiculopathy, lumbosacral region Disorder of sacrum Lumbosacral spondylosis without myelopathy Dehydration Coronary artery disease involving chippewa-cree coronary artery of chippewa-cree heart Chest pain due to myocardial ischemia [...] mg total) by mouth in the morning. 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 DR ROSE CERVICAL FUSION 11/02/2024 AND LUMBAR FUSION 12/21/24, LS TMP 06/30/21, LABS, EKG, CHEST XRAY 10/19/24 [facility], FORMS SCANNED TO MEDIA Pre-op Exam [...] tooth Depression Diabetes mellitus type 2, controlled ([facility]) Diverticulitis GERD (gastroesophageal reflux disease) Hypercholesterolemia Lumbar disc disease GA (myocardial infarction) ([facility]) Migraines Neck pain Obesity Sleep apnea Visual impairment glasses No data recorded No data recorded No data recorded Past Surgical History: Procedure Laterality Date ADENOIDECTOMY CARDIAC CATHETERIZATION stents x 2 Cardiac catheterization 03/13/2020 Performed by Rebecca Quinones MD at [facility] CARDIAC CATH LABS COLONOSCOPY with removal of polyups Coronary angiogram and left ventricular gram/pressure N/A 03/13/2020 Performed by Rebecca Quinones MD at [facility] CARDIAC CATH LABS CORONARY STENT PLACEMENT EGD N/A 08/24/2018 Performed by Hui Narvaez DO at [facility] EGD N/A 07/31/2018 Performed by Hui Narvaez DO at [facility] EXCISION CYST HEAD/NECK Circumferential 11/10/2020 Performed by Vanessa Hopkins MD PhD at [facility] EXCISION CYST MIDSECTION CPT code 64487 N/A 04/07/2021 Performed by Jamaal Shukla MD at [facility] EXCISION MASS PERINEUM and chest x 2 N/A 12/30/2020 Performed by Jamaal Shukla MD at [facility] HYSTERECTOMY INCISION DRAINAGE GROIN Left 04/07/2021 Performed by Jamaal Shukla MD at [facility] INJECTION MEDIAL BRANCH NERVE BLOCK: right [id number] Right 08/19/2017 Performed by Cameron Hsieh MD at [facility] INJECTION MEDIAL BRANCH NERVE BLOCK: right [id number] mbb 1 OF 2 Right 03/11/2017 Performed by Cameron Hsieh MD at [facility] INJECTION SACROILIAC NERVE Bilateral 03/02/2019 Performed by Cameron Hsieh MD at [facility] INJECTION SACROILIAC NERVE Right 05/22/2018 Performed by Cameron Hsieh MD at [facility] INJECTION SACROILIAC NERVE Right 05/08/2018 Performed by Cameron Hsieh MD at [facility] INJECTION SACROILIAC NERVE: left SI inj 1of 2 Left 04/08/2017 Performed by Cameron Hsieh MD at [facility] INJECTION SACROILIAC NERVE: Left SI INJ 2 OF 2 Left 04/22/2017 Performed by Cameron Hsieh MD at [facility] Intravascular pressure measurement first vessel(fractional flow reserve) N/A 03/13/2020 Performed by Rebecca Quinones MD at [facility]ATH [facility] Intravascular ultrasound coronary N/A 03/13/2020 Performed by Rebecca Quinones MD at [facility]ATH [facility] LAPAROSCOPIC CHOLECYSTECTOMY N/A 09/19/2018 Performed by Hui Narvaez DO at [facility] RADIO FREQUENCY ABLATION L3/4,4/5,5/S1 Left 12/06/2016 Performed by Cameron Hsieh MD at [facility] RADIO FREQUENCY ABLATION LEFT SI Left 05/13/2017 Performed by Cameron Hsieh MD at [facility] RADIO FREQUENCY ABLATION: left L34 45 51rfa Left 10/30/2018 Performed by Cameron Hsieh MD at [facility] RADIO FREQUENCY ABLATION: left SI Left 06/19/2018 Performed by Cameron Hsieh MD at [facility] RADIO FREQUENCY ABLATION: right L34 45 51rfa Right 11/13/2018 Performed by Cameron Hsieh MD at [facility] RADIO FREQUENCY ABLATION: right SI Right 07/03/2018 Performed by Cameron Hsieh MD at [facility] RADIOFREQUENCY ABLATION SPINAL: left L34 45 51rfa Left 11/07/2017 Performed by Cameron Hsieh MD at [facility] RADIOFREQUENCY ABLATION SPINAL: right L34 45 51 Right 09/12/2017 Performed by Cameron Hsieh MD at [facility] RESECTION SUBMUCOSAL NASAL Bilateral 11/10/2020 Performed by Vanessa Hopkins MD PhD at [facility] SEPTOPLASTY Circumferential 11/10/2020 Performed by Vanessa Hopkins MD PhD at [facility] Stent drug-eluting left anterior descending N/A 03/13/2020 Performed by Rebecca Quinones MD at [facility] TONSILLECTOMY TOTAL ABDOMINAL HYSTERECTOMY W/ BILATERAL SALPINGOOPHORECTOMY UVULOPLASTY N/A 01/21/2022 Performed by Vanessa Hopkins MD PhD at [facility] Family History Problem Relation Age of Onset [...] min Stress: No Stress Concern Present (09/17/2020) [employer] [place] [employer] - Occupational Stress Questionnaire Feeling of Stress : Only a little Social Connections: Socially Isolated (09/17/2020) Social Connection and Isolation Panel [NHANES] Frequency of Communication with Friends and Family: More than three times a week Frequency of Social Gatherings with Friends and Family: More than three times a week Attends Orthodox Services: Never Active Member of Clubs or [...] PCI with BENJY to mid LAD in 2019 with residual small vessel obstructive OM1 disease [...] PCP: BHANU MARINA Referring Physician: BHANU Marina [address] [place] [id number] documented in this encounter [facility] Women[facility] 10-18-2024 Instructions Lacy Miller [facility] - 10/18/2024 10:30 AM EDT Are You Ready To Kick The Habit? Free Tobacco Cessation Resources [facility] Tobacco Treatment Center Services [facility] Centers provide all employees with free tobacco cessation services that include: Counseling to understand nicotine addiction Education about medications that can help you successfully quit Assistance with developing a plan to quit Call to set up an individual appointment or find out when group classes will be held: [facility]: [phone] [facility]: [phone] [facility]: [phone] [facility]: [phone] Quit Smoking Action Plan and Resources [facility] offers an eight-week, online smoking cessation plan to all [facility] employees, regardless of whether [employer] is your medical insurance provider. Go to [email or web address] and click the Health Risk Assessment and Resources link to get started. In the Methz9Sjvvru menu, click Action Plans instead of Health Risk Assessment to access the Quit Smoking Action Plan. Additional smoking cessation resources are also available to all [facility] employees on the Vglvr4Vkxlxd web page at www.[employer]/quitsm artie. [employer] Tobacco Cessation Program If [employer] is your medical insurance provider, there are more free resources available to you, including: No copays or deductibles on local tobacco cessation counseling services to help you quit Prescription assistance for tobacco cessation medications to help you quit For details about the tobacco cessation program available to [employer] members, go to www.[employer] (Search: Tobacco Cessation Program). [place] Tobacco Quit Line 3-310-GOPG-NOW ( ) is a toll-free, telephonic service that helps [place] residents quit smoking and using tobacco. It is staffed by experts who tailor a quit plan for you and provide you with advice. [place] Tobacco Quit Line 5-898-EYTG-NOW ( ) is a toll-free, telephonic service that helps [place] residents quit smoking and using tobacco. It is staffed by experts who tailor a quit plan for you and provide you with advice. Two weeks of nicotine replacement therapy may be provided at no charge, if needed. Additional Resources These national organizations also offer free information and resources to help you quit tobacco: [place] [employer]--www.cancer.org/healthy/st ayawayfromtobacco [place] [employer]--www.heart.org (Search: Quit Smoking) Centers for Disease Control and Prevention--www.cdc.gov/tobacco [place] [employer]--www.lungusa.org documented in this encounter [facility] 10-17-2024 Miscellaneous Notes Left message for patient to remind them to bring their most current medication list with them to their appointment. documented in this encounter [facility] 10-17-2024 Telephone encounter Note Left message for patient to remind them to bring their most current medication list with them to their appointment. [facility] 10-08-2024 History of Present illness Narrative Associated [...] being taken. She does not see a model set artist.Eye exam is not current. Anxiety Presents for [...] (ABILIFY) 5 mg, Oral, Daily Continuous Glucose Steel Rule Inspector (FreeStyle Helen 2 [place]) device 1 each, Does not apply, Daily Continuous Glucose Sensor (FreeStyle Helen 2 Sensor) [facility] [place] DIRECTED to test BLOOD SUGAR change [...] of the risks of continued smoking: stroke, GA, all forms of cancer, lung disease, and [...] of the risks of continued smoking: stroke, GA, all forms of cancer, lung disease, and . Options for quitting smoking include: cold turkey, hypnosis, acupuncture, nicotine replacement meds (gum, lozenges, and patches), Buproprion, and Varenicline. At this time pt is encouraged to evaluate their goals for wanting to quit smoking, and reach out to provider when ready to start this process documented in this encounter [facility] 10-08-2024 Instructions Lacy Alberto NP - 10/08/2024 1:00 PM EDT Recommend quitting smoking: The patient has been advised of the risks of continued smoking: stroke, GA, all forms of cancer, lung disease, and [...] please contact me documented in this encounter [facility] 08-06-2024 History of Present illness Narrative Associated [...] Lumbar back pain: Daily pain, went to [facility] pain mgmt, they had wanted her [...] (ABILIFY) 5 mg, Oral, Daily Continuous Glucose Steel Rule Inspector (FreeStyle Helen 2 [place]) device 1 each, Does not apply, Daily [...] again Associated Problem(s): Arteriosclerosis of coronary artery ([facility]) Not compliant with statin, asa, or b christiano use Associated Problem(s): Chronic obstructive pulmonary disease, unspecified ([facility]) Recommend quitting smoking No daily inhaler use Associated Problem(s): Type 2 diabetes mellitus with diabetic polyneuropathy ([facility]) Recommend good blood glucose control Freq foot examinations or s/s open wounds documented in this encounter [facility] 08-06-2024 Instructions Lacy Alberto NP - 08/06/2024 3:00 PM EST Increase ozempic to 1mg daily Continue with pain mgmt documented in this encounter [facility] 07-23-2024 History of Present illness Narrative Associated Problem(s): Spondylosis of 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 OARRS reviewed Will provide a refill of pain medication until seen by pain mgmt documented in this encounter [facility] 06-25-2024 Telephone encounter Note Please contact pt, her insurance company denied her MRI lumbar spine, states she needs to do 6 weeks PT Is she willing to do this, or does she want a referral to pain mgmt, and if she wants a referral: [place]? [place] [facility] 06-25-2024 Miscellaneous Notes Please contact pt, her insurance company denied her MRI lumbar spine, states she needs to do 6 weeks PT Is she willing to do this, or does she want a referral to pain mgmt, and if she wants a referral: jose BELTRE documented in this encounter [facility] 05-22-2024 History of Present illness Narrative Associated [...] order for a Rolator walker Fax number [phone] Pt is asking for a handicap plaque [...] (ABILIFY) 5 mg, Oral, Daily Continuous Glucose Steel Rule Inspector (FreeStyle Helen 2 [place]) device 1 each, Does not apply, Daily Continuous Glucose Steel Rule Inspector (FreeStyle Helen 3 [place]) device 1 each, Does not apply, Daily [...] wo contrast Chronic obstructive pulmonary disease, unspecified ([facility]) Needs to quit smoking Mixed hyperlipidemia ([facility]) Declines use of statin therapy Advised risk for stroke, GA, without use Type 2 diabetes mellitus without complication, without long-term current use of insulin ([facility]) Check blood sugars daily, [...] MG/DOSE,) 2 MG/3ML solution pen-injector Continuous Glucose Steel Rule Inspector ([employer] Helen 3 [place]) device RESOLVED: BMI 32.0-32.9,adult Type 2 diabetes mellitus with diabetic polyneuropathy ([facility]) Need for tight blood sugar control Tobacco use The patient has been advised of the risks of continued smoking: stroke, GA, all forms of cancer, lung disease, and [...] yearly and prn Associated Problem(s): Mixed hyperlipidemia ([facility]/HCC) Declines use of statin therapy Advised risk for stroke, GA, without use Associated Problem(s): Tobacco use The patient has been advised of the risks of continued smoking: stroke, GA, all forms of cancer, lung disease, and . Options for quitting smoking include: cold turkey, hypnosis, acupuncture, nicotine replacement meds (gum, lozenges, and patches), Buproprion, and Varenicline. At this time pt is encouraged to evaluate their goals for wanting to quit smoking, and reach out to provider when ready to start this process Associated Problem(s): Arteriosclerosis of coronary artery ([facility]) Does not take stating therapy, or b christiano, does take ASA Associated Problem(s): Angina pectoris, unspecified ([facility]) Hx of CAD, no active angina, does not take statin or b christiano, pt declines to take Associated Problem(s): Type 2 diabetes mellitus without complication, without long-term current use of insulin ([facility]) Check blood sugars daily, [...] to use documented in this encounter [facility] 05-22-2024 Instructions Lacy Alberto NP - 05/22/2024 9:00 AM EST Order MRI documented in this encounter [facility] 04-30-2024 Telephone encounter Note Patient is asking if she can get a handicap placard? JN [facility] 04-30-2024 Miscellaneous Notes Patient is asking if she can get a handicap placard? JN Patient said she did go up to .5 documented in this encounter [facility] 04-30-2024 Telephone encounter Note Patient said she did go up to .5 [facility] 03-23-2024 Telephone encounter Note Call from [facility] Er, Dr Nobles... pt in er asking for refill of ozempic, has been out for 6 months. Blood sugar 289 I told him I would order it, needs to go to [facility], but it may require a prior authorization to get, and that would not happened until next week if needed. Also told him to have her make a fu appt with our office, as it had been several months since she was last seen [facility] 03-23-2024 Miscellaneous Notes Call from [facility] Er, Dr Nobles... pt in er asking for refill of ozempic, has been out for 6 months. Blood sugar 289 I told him I would order it, [facility], but it may require a prior authorization to get, and that would not happened until next week if needed. Also told him to have her make a fu appt with our office, as it had been several months since she was last seen documented in this encounter [facility] 02-27-2024 Telephone encounter Note pt called needing a new free style helen account development executive sent into [employer] her old one no longer works and is in need of a new one [facility] 02-27-2024 Miscellaneous Notes pt called needing a new free style helen account development executive sent into [employer] her old one no longer works and is in need of a new one documented in this encounter [facility] Healthcare Evaluation note Diagnosis Type 2 diabetes mellitus without complication, without long-term current use of insulin ([facility]/HCC) documented in this encounter [facility] HealthcareEvaluation note* Diagnosis Type 2 diabetes mellitus without complication, without long-term current use of insulin ([facility]/HCC)- Primary Arteriosclerosis of coronary artery (CMS/HCC) Gastroesophageal reflux disease without esophagitis Esophageal reflux Leukocytosis, unspecified type Mixed hyperlipidemia (CMS/HCC) Mixed hyperlipidemia Anxiety and depression ([facility]/HCC) Encounter for screening mammogram for malignant neoplasm of breast Spondylosis of 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 Pain of right hip History of colon polyps Bipolar disorder, current episode mixed, mild (CMS/HCC) Type 2 diabetes mellitus without complication, without long-term current use of insulin ([facility]/HCC) documented in this encounter [facility] HealthcareEvaluation note* Diagnosis Type 2 diabetes [...] and depression (CMS/HCC) documented in this encounter [facility] HealthcareEvaluation note* Diagnosis Type 2 diabetes [...] insulin (CMS/HCC)- Primary documented in this encounter [facility] HealthcareEvaluation note* Diagnosis Type 2 diabetes mellitus without complication, without long-term current use of insulin (CMS/HCC)- Primary documented in this encounter [facility] HealthcareEvaluation note* Diagnosis Type 2 diabetes mellitus without complication, without long-term current use of insulin (CMS/HCC)- Primary documented in this encounter [facility] HealthcareEvaluation note* Diagnosis Type 2 diabetes [...] without myelopathy- Primary documented in this encounter [facility] HealthcareEvaluation note* Diagnosis Type 2 diabetes [...] spine without myelopathy [facility] Diagnosis Type 2 diabetes mellitus without [...] of unspecified site documented in this encounter [facility] HealthcareEvaluation note* Diagnosis Type 2 diabetes [...] malignant neoplasms, colon [facility] Diagnosis Pre-op testing- Primary Unspecified pre-operative examination Coronary artery disease involving chippewa-cree coronary artery of chippewa-cree heart without angina pectoris Dyspnea, unspecified type documented in this encounter [facility] System[facility]* Diagnosis Type 2 diabetes mellitus without [...] screening Special screening for malignant neoplasms, colon Type 2 diabetes mellitus without complication, without long-term current use of insulin documented in this encounter [facility] HealthcareEvaluation note* Diagnosis Type 2 diabetes mellitus without complication, without long-term current use of insulin (HCC)- Primary Arteriosclerosis of coronary artery Gastroesophageal reflux disease without esophagitis Esophageal reflux Leukocytosis, unspecified type Mixed hyperlipidemia Mixed hyperlipidemia Anxiety and depression Encounter for screening mammogram for malignant neoplasm of breast Spondylosis of 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 Pain of right hip History of colon polyps Bipolar disorder, current episode mixed, mild (HCC) Encounter for subsequent annual wellness visit (AWV) in Medicare patient- Primary Type 2 diabetes mellitus with diabetic polyneuropathy ([facility]) Angina pectoris, unspecified Chronic obstructive pulmonary disease, unspecified ([facility]) BMI 32.0-32.9,adult Type 2 diabetes mellitus without complication, without long-term current use of insulin ([facility]) Arteriosclerosis of coronary artery Tobacco use Mixed hyperlipidemia Mixed hyperlipidemia Spondylosis of 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 Bipolar disorder, current episode mixed, mild (HCC) Anxiety and depression Spondylosis of 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- Primary Type 2 diabetes mellitus without complication, without long-term current use of insulin (HCC)- Primary Bipolar disorder, current episode mixed, mild (HCC) Type 2 diabetes mellitus with other specified complication (HCC) Chronic obstructive pulmonary disease, unspecified (HCC) Type 2 diabetes mellitus with diabetic polyneuropathy (HCC) Arteriosclerosis of coronary artery Anxiety and depression Cervical spinal stenosis Spinal stenosis in cervical region Spondylosis of 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 Anxiety and depression- Primary Cigarette nicotine dependence without complication Type 2 diabetes mellitus without complication, without long-term current use of insulin ([facility]) Encounter for screening mammogram for malignant neoplasm of breast DDD (degenerative disc disease), cervical Degeneration of cervical intervertebral disc Spondylosis of 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 Bipolar disorder, current episode mixed, mild (HCC) Colon cancer screening Special screening for malignant neoplasms, colon Type 2 diabetes mellitus with diabetic polyneuropathy, without long-term current use of insulin ([facility])- Primary Type 2 diabetes mellitus without complication, without long-term current use of insulin ([facility]) Anxiety and depression Bipolar disorder, current episode mixed, mild (HCC) Cigarette nicotine dependence without complication Colon cancer screening Special screening for malignant neoplasms, colon Encounter for screening mammogram for malignant neoplasm of breast Neuroforaminal stenosis of spine Arteriosclerosis of coronary artery documented in this encounter [facility] HealthcareEvaluation note* Diagnosis Type 2 diabetes mellitus without complication, without long-term current use of insulin (HCC)- Primary Arteriosclerosis of coronary artery Gastroesophageal reflux disease without esophagitis Esophageal reflux Leukocytosis, unspecified type Mixed hyperlipidemia Mixed hyperlipidemia Anxiety and depression Encounter for screening mammogram for malignant neoplasm of breast Spondylosis of 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 Pain of right hip History of colon polyps Bipolar disorder, current episode mixed, mild (HCC) Encounter for subsequent annual wellness visit (AWV) in Medicare patient- Primary Type 2 diabetes mellitus with diabetic polyneuropathy (HCC) Angina pectoris, unspecified Chronic obstructive pulmonary disease, unspecified (HCC) BMI 32.0-32.9,adult Type 2 diabetes mellitus without complication, without long-term current use of insulin (HCC) Arteriosclerosis of coronary artery Tobacco use Mixed hyperlipidemia Mixed hyperlipidemia Spondylosis of 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 Bipolar disorder, current episode mixed, mild (HCC) Anxiety and depression Spondylosis of 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- Primary Type 2 diabetes mellitus without complication, without long-term current use of insulin (HCC)- Primary Bipolar disorder, current episode mixed, mild (HCC) Type 2 diabetes mellitus with other specified complication (HCC) Chronic obstructive pulmonary disease, unspecified (HCC) Type 2 diabetes mellitus with diabetic polyneuropathy (HCC) Arteriosclerosis of coronary artery Anxiety and depression Cervical spinal stenosis Spinal stenosis in cervical region Spondylosis of 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 Anxiety and depression- Primary Cigarette nicotine dependence without complication Type 2 diabetes mellitus without complication, without long-term current use of insulin (HCC) Encounter for screening mammogram for malignant neoplasm of breast DDD (degenerative disc disease), cervical Degeneration of cervical intervertebral disc Spondylosis of 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 Bipolar disorder, current episode mixed, mild (HCC) Colon cancer screening Special screening for malignant neoplasms, colon Type 2 diabetes mellitus with diabetic polyneuropathy, without long-term current use of insulin (HCC)- Primary Type 2 diabetes mellitus without complication, without long-term current use of insulin (HCC) Anxiety and depression Bipolar disorder, current episode mixed, mild (HCC) Cigarette nicotine dependence without complication Colon cancer screening Special screening for malignant neoplasms, colon Encounter for screening mammogram for malignant neoplasm of breast Neuroforaminal stenosis of spine Arteriosclerosis of coronary artery Type 2 diabetes mellitus without complication, without long-term current use of insulin (HCC)- Primary documented in this encounter [facility] HealthcareInstructionsNot on filedocumented in this encounterProMed[facility] SystemInstructionsNot on filedocumented in this encounterProBrown [facility] SystemInstructionsNot on filedocumented in this encounterProBrown Memorial Hospital System Summary Purpose Family History No Family [...] Specialty Diagnoses / Procedures Referred By Marleni austin Referred To Contact Diagnoses Type 2 diabetes mellitus without complication, without long-term current use of insulin (CMS/HCC) Lacy Alberto, DOMINIC [address] [place] [address] Referral ID Status Reason Start Date Expiration Date V isits Requested Visits Authorized [id number] Pending Review 04/05/2024 10/02/2024 1 1 Referral ID Status Reason Start Date Expiration Date Visits Re quested Visits Authorized [id number] Closed 1 1 Additional Source Comments INFORMATION SOURCE (unrecogn ized section and content) DATE CREATED AUTHOR 01/21/2019 [facility] DATE CREATED AUTHOR AUTHOR'S ORGANIZ ATION 01/30/2020 [facility] DATE CREATED AUTHOR AUTHOR'S ORGANIZ ATION 09/13/2022 [facility] DATE CREATED AUTHOR AUTHOR'S ORGANIZ ATION 11/15/2024 [facility] DATE CREATED AUTHOR AUTHOR'S ORGANIZ ATION 01/11/2025 [facility] DATE CREATED AUTHOR AUTHOR'S ORGANIZ ATION 02/15/2025 [facility] Care Teams (unrecognized sec tion and content) Relay Dispatcher Relationship Specialty Start Date End Date Fred Pryor MD [address] [place] [address] PCP - General Family Medicine 11/17/23 Lacy Alberto NP [address] [place] [address] Referring Physician Family Medicine 07/04/22 Lacy Alberto NP [address] [place] [address] Nurse Practitioner Family Medicine 11/17/23 Relay Dispatcher Relationship Specialty Start Date End Date Fred Pryor MD [address] [place] [address] PCP - General Family Medicine 11/17/23 Lacy Alberto NP [address] [place] [address] Referring Physician Family Medicine 07/04/22 Lacy Alberto NP [address] [place] [address] Nurse Practitioner Family Medicine 11/17/23 Relay Dispatcher Relationship Specialty Start Date End Date Fred Pryor MD [address] [place] [address] PCP - General Family Medicine 11/17/23 Lacy Alberto NP [address] [place] [address] Referring Physician Family Medicine 07/04/22 Lacy Alberto NP [address] [place] [address] Nurse Practitioner Family Medicine 11/17/23 Relay Dispatcher Relationship Specialty Start Date End Date Fred Pryor MD [address] [place] [address] PCP - General Family Medicine 11/17/23 Lacy Alberto NP [address] [place] [address] Referring Physician Family Medicine 07/04/22 Lacy Alberto NP [address] [place] [address] Nurse Practitioner Family Medicine 11/17/23 Relay Dispatcher Relationship Specialty Start Date End Date Fred Pryor MD [address] [place] [address] PCP - General Family Medicine 11/17/23 Lacy Alberto NP [address] [place] [address] Referring Physician Family Medicine 07/04/22 Lacy Alberto NP [address] [place] [address] Nurse Practitioner Family Medicine 11/17/23 Relay Dispatcher Relationship Specialty Start Date End Date Fred Pryor MD [address] [place] [address] PCP - General Family Medicine 11/17/23 Lacy Alberto NP [address] [place] [address] Referring Physician Family Medicine 07/04/22 Lacy Alberto NP [address] [place] [address] Nurse Practitioner Family Medicine 11/17/23 Relay Dispatcher Relationship Specialty Start Date End Date Fred Pryor MD [address] [place] [address] PCP - General Family Medicine 11/17/23 Lacy Alberto NP [address] [place] [address] Referring Physician Family Medicine 07/04/22 Lacy Alberto NP [address] [place] [address] Nurse Practitioner Family Medicine 11/17/23 Relay Dispatcher Relationship Specialty Start Date End Date Fred Pryor MD [address] [place] [address] PCP - General Family Medicine 11/17/23 Lacy Alberto NP [address] [place] [address] Referring Physician Family Medicine 07/04/22 Lacy Alberto NP [address] [place] [address] Nurse Practitioner Family Medicine 11/17/23 Relay Dispatcher Relationship Specialty Start Date End Date Fred Pryor MD [address] [place] [address] PCP - General Family Medicine 11/17/23 Lacy Alberto NP [address] [place] [address] Referring Physician Family Medicine 07/04/22 Lacy Alberto NP [address] [place] [address]1002 Nurse Practitioner Family Medicine 11/17/23 Relay Dispatcher Relationship Specialty Start Date End Date Fred Pryor MD [address] [place] [address]-1002 PCP - General Family Medicine 11/17/23 Lacy Alberto NP [address] [place] [address] Referring Physician Family Medicine 07/04/22 Lacy Ablerto NP [address] [place] [address] Nurse Practitioner Family Medicine 11/17/23 Relay Dispatcher Relationship Specialty Start Date End Date Fred Pryor MD [address] [place] [address] PCP - General Family Medicine 11/17/23 Lacy Alberto NP [address] [place] [address] Referring Physician Family Medicine 07/04/22 Lacy Alberto NP [address] [place] [address] Nurse Practitioner Family Medicine 11/17/23 Relay Dispatcher Relationship Specialty Start Date End Date Fred Pryor MD [address] [place] [address] PCP - General Family Medicine 11/17/23 Lacy Alberto NP [address] [place] [address] Referring Physician Family Medicine 07/04/22 Lacy Alberto NP [address] [place] [address]1002 Nurse Practitioner Family Medicine 11/17/23 Relay Dispatcher Relationship Specialty Start Date End Date Fred Pryor MD [address] [place] [address] PCP - General Family Medicine 11/17/23 Lacy Alberto NP [address] [place] [address] Referring Physician Family Medicine 07/04/22 Lacy Alberto NP [address] [place] [address] Nurse Practitioner Family Medicine 11/17/23 Relay Dispatcher Relationship Specialty Start Date End Date Fred Pryor MD [address] [place] [address] PCP - General Family Medicine 11/17/23 Lacy Alberto NP [address] [place] [address] Referring Physician Family Medicine 07/04/22 Lacy Alberto NP [address] [place] [address] Nurse Practitioner Family Medicine 11/17/23 Relay Dispatcher Relationship Specialty Start Date End Date Fred Pryor MD [address] [place] [address] PCP - General Family Medicine 11/17/23 Lacy Alberto NP [address] [place] [address] Referring Physician Family Medicine 07/04/22 Lacy Alberto NP [address] [place] [address] Nurse Practitioner Family Medicine 11/17/23 Relay Dispatcher Relationship Specialty Start Date End Date Fred Pryor MD [address] [place] [address] PCP - General Family Medicine 11/17/23 Lacy Alberto NP [address] [place] [address]40410-1002 Referring Physician Family Medicine 07/04/22 Lacy Alberto NP [address] [place] [address]1310-1002 Nurse Practitioner Family Medicine 11/17/23 Relay Dispatcher Relationship Specialty Start Date End Date Lacy Alberto APRN-PERMACULTURE DESIGNER PCP - General Nurse Practitioner 12/30/16 Relay Dispatcher Relationship Specialty Start Date End Date Lacy Alberto APRN-PERMACULTURE DESIGNER PCP - General Nurse Practitioner 12/30/16 Relay Dispatcher Relationship Specialty Start Date End Date Fred Pryor MD [address] [place] [address] PCP - General Family Medicine 11/17/23 Lacy Alberto NP [address] [place] [address]1002 Referring Physician Family Medicine 07/04/22 Lacy Alberto NP [address] [place] [address] Nurse Practitioner Family Medicine 11/17/23 Relay Dispatcher Relationship Specialty Start Date End Date Lacy Alberto APRN-PERMACULTURE DESIGNER PCP - General Nurse Practitioner 12/30/16 Relay Dispatcher Relationship Specialty Start Date End Date Fred Pryor MD [address] [place] [address] PCP - General Family Medicine 11/17/23 Lacy Alberto NP [address] [place] [address] Referring Physician Family Medicine 07/04/22 Lacy Alberto NP [address] [place] [address] Nurse Practitioner Family Medicine 11/17/23 Relay Dispatcher Relationship Specialty Start Date End Date Fred Pryor MD [address] [place] [address] PCP - General Family Medicine 11/17/23 Lacy Alberto NP [address] [place] [address] Referring Physician Family Medicine 07/04/22 Lacy Alberto NP [address] [place] [address] Nurse Practitioner Family Medicine 11/17/23 Relay Dispatcher Relationship Specialty Start Date End Date Fred Pryor MD [address] [place] [address] PCP - General Family Medicine 11/17/23 Lacy Alberto NP [address] [place] [address] Referring Physician Family Medicine 07/04/22 Lacy Alberto NP [address] [place] [address] Nurse Practitioner Family Medicine 11/17/23 Relay Dispatcher Relationship Specialty Start Date End Date Lacy Alberto, SHADE MAKER-PERMACULTURE DESIGNER PCP - General Nurse Practitioner 12/30/16 Relay Dispatcher Relationship Specialty Start Date End Date Fred Pryor MD [address] [place] [address] PCP - General Family Medicine 11/17/23 Lacy Alberto NP [address] [place] [address] Referring Physician Family Medicine 07/04/22 Lacy Alberto NP [address] [place] [address] Nurse Practitioner Family Medicine 11/17/23 Reason for Visit (unrecogniz ed section and content) Reason Onset Date Comments Med Refill 04/30/2024 Reason Comments Diabetes Reason Comments 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, [facility], FORMS SCANNED TO MEDIA Pre-op Exam Reason Onset Date Comments Cardiac Clearance 10/30/2024 Reason Onset Date Comments Med Refill 12/07/2024 Reason Comments Diabetes Reason Onset Date Comments Surgical Or Dental Clearance 02/20/2025 FOR RECORDS PERTAINING TO PATIENTS WHO ARE [...] BE BASED ON THE PRIMARY CLINICAL RECORDS. [facility], [facility]. provides no warranty or guarantee of the accuracy or completeness of information in this document.
--- OUTSIDE RECORDS SUMMARY | 2025-03-15 07:27 | XMS_ITS | Encounter Summary ---
Author Organization [employer] s [employer] Address [id number] [address] [place] [address] Care Team Providers Care Chief Technician X Ray Name Role Phone JuniorcalebsylvesterLacy michele Rosemarie COMBSN-BOILER ROOM OPERATOR Primary Care Provider Encounter Details Date Type Department Care Team (Late st Contact Info) Description 01/18/[address] [facility] [address] [place] [address] Dee Fine RMA Social History Tobacco Use Types Packs/Day Years [...] often do you attend chur ch or synagogue services? Never 09/17/2020 Do you belong to any clubs o r organizations such as restorationist groups, unions, fraternal or athletic groups, or [...] Answer Date Recorded Total Score 0 05/20/2021 [facility] of Occupat ional Health - Occupational Stress [...] Recorded Do you need help finding a [facility] career center and/or a training program? No [...] or suspected to have Coronavirus / COVID-19? Yes 01/21/2022 6:42 AM EDT documented as of this encounter Miscellaneous Notes * Telephone Encounter - RABIA Carrizales - 01/18/2022 9:15 AM EDT Called and left a message for the patient to inform her that her surgery time changed. Her surgery is now at 8:30am and she needs to be at [facility] at 6:30am. Asked to give the office a call back if she has any questions. documented in this encounter Plan of Treatment Upcoming Encounters Date Type Department Care Team (Late st Contact Info) Description 04/23/2025 12:15 PM EDT Office Visit [facility] Cardiology [address] [place] [address] Billy Caruso MD [address] [place] [address] Obie Mitchell MD [address] [place] [address] documented as of this encounter Goals Goal [...] documented as of this encounter Care Teams Chief Technician X Ray Relationship Specialty Start Date End Date Lacy Alberto, HELICOPTER DISPATCHER-BOILER ROOM OPERATOR PCP - General Nurse Practitioner 12/30/16 documented as of this encounter
--- OUTSIDE RECORDS SUMMARY | 2025-03-15 07:27 | XMS_ITS | Encounter Summary ---
Author Organization [facility] Address [id number] [address] [place] [address] Care Team Providers Care Deputy County Attorney Name Role Phone JuniorLacy mann Rosemarie COMBSN-WINDOWS SYSTEMS ADMINISTRATOR Primary Care Provider Encounter Details Date Type Department Care Team (Late st Contact Info) Description 10/16/2024 Orders Only [facility] Card[facility] [address] [place] [address] External, Scanning Provider Social History Tobacco Use Types Packs/Day Years [...] often do you attend chur ch or baptist services? Never 09/17/2020 Do you belong to any clubs o r organizations such as christian groups, unions, fraternal or athletic groups, or [...] Answer Date Recorded Total Score 0 05/20/2021 [facility] Occupat ional Health - Occupational Stress [...] Recorded Do you need help finding a [facility] career center and/or a training [...] Cardiology [address] [place] [address] Billy Caruso MD [address] [place] [address] Obie Mitchell MD [address] [place] [address] documented as of this encounter Goals Goal Patient Goal Type Associated Problems Recent Progress Patient-Stated? Author home General Yes Thais Diaz LSW Note: Evaluation of progress towards goal: feeling much better, moving well with therapy documented as of this encounter Procedures Procedure Name Priority Date/Time Associated Diagnosis Comments XR SPINE LUMBAR 2 OR 3 VWS Routine 10/05/2024 1:47 PM EDT XR SPINE CERVICAL 3 VWS OR LESS Routine 10/05/2024 1:44 PM EDT documented in this encounter Results * X-ray spine lumbar 2 or 3 views (10/05/2024 1:47 PM EDT) Anatomical Region Laterality Modality MSK, Neuro, Spine, L-spine N/A Compu ronna Radiography us Scanning Provider External IMG DIAGNOSTIC IMAGIN G ORDERABLES Final Result * X-ray spine cervical 3 views or less (10/05/2024 1:44 PM EDT) Anatomical Region Laterality Modality MSK, Neuro, Spine, C-spine N/A Compu ronna Radiography us Scanning Provider External IMG DIAGNOSTIC IMAGIN G ORDERABLES Final Result documented in this encounter Visit Diagnoses Not on filedocumented in this encounter Additional Health Concerns Assessment Noted Time PHQ-9 Depression Total Score: 0 05/20/20 21 10:21 AM EST documented as of this encounter Care Teams Deputy County Attorney Relationship Specialty Start Date End Date Lacy Alberto, CERTIFIED OPHTHALMIC MEDICAL TECHNICIAN-WINDOWS SYSTEMS ADMINISTRATOR PCP - General Nurse Practitioner 12/30/16 documented as of this encounter
--- NOTE | 2025-03-15 07:30 | ECG_ITS ---
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
--- NOTE | 2025-03-15 07:38 | XR_ITS ---
The [address] [address] Patient Name: ADDIE BEACH MRN: [id number] date: 1970 Sex: F Assigned Patient Location: LAB Current Patient Location: LAB Accession/Order Number: [id number] Exam Date: 03/15/2025 07:50 Report Date: 03/15/2025 08:29 At the request of: DISHA JARRETT MD Procedure: XR chest 2V PA AND LATERAL CHEST: CLINICAL HISTORY: Cervical Spinal Stenosis M48.02, Pre Operative Evaluation COMPARISON: 10/19/2024 There is no focal parenchymal consolidation, effusion or pneumothorax. The cardiac, hilar and mediastinal silhouettes are within normal limits. There is no vascular congestion. The visualized bony thorax is intact. Mild endplate spurring is seen at the spine. XR/XR chest 2V IMPRESSION: NO ACUTE CARDIOPULMONARY ABNORMALITY. Impression dictated by: Gloria Koch M.D. 03/15/2025 8:29 AM Dictation Location: [place] [address] Electronically authenticated by: [id number] Y Date: 03/15/2025 08:29
[2025-03-15 07:54] LABS: Hematocrit 57.5 % (36.0-48.0); Hemoglobin 19.6 g/dL (12.0-16.0); Mean Corpuscular HGB Conc 34.1 g/dL (29.9-35.2); Mean Corpuscular Hemoglobin 29.9 pg (26.7-34.0); Mean Corpuscular Volume 87.7 fL (81.0-99.0); Platelet Count 261 10^3/uL (150-450); Red Blood Count 6.56 10^6/uL (4.20-5.40); White Blood Count 13.9 10^3/uL (4.0-11.0)
[2025-03-15 08:20] LABS: INR 0.97; Partial Thromboplastin Time 27.9 sec (22.3-36.2); Prothrombin Time 10.3 sec (9.0-11.6)
[2025-03-15 08:40] LABS: Atypical Lymphocytes % Manual 3.0 %; Atypical Lymphocytes Abs Man 0.41; Basophils Abs Manual 0.00 10^3/uL (0.00-0.10); Basophils Percent Manual 0.0 % (0.2-2.0); Eosinophils Absolute Manual 0.83 10^3/uL (0.00-0.70); Eosinophils Percent Manual 6.0 % (0.9-7.0); Lymphocytes Absolute Manual 4.44 10^3/uL (1.20-3.80); Lymphocytes Percent Manual 32.0 % (20.5-60.0); Monocytes Absolute Manual 0.41 10^3/uL (0.30-0.80); Monocytes Percent Manual 3.0 % (1.7-12.0); Segmented Neut Absolute Manual 7.78 10^3/uL (1.4-6.5); Segmented Neutrophils % Manual 56.0 (43.0-75.0)
[2025-03-15 10:55] LABS: Anion Gap 16.6; Blood Urea Nitrogen 11.0 mg/dL (7.0-18.0); Calcium 8.7 mg/dL (8.5-10.1); Carbon Dioxide 22.1 mmol/L (21.0-32.0); Chloride 107 mmol/L (98-107); Estimated GFR (African America >60 (>=60 mL/min/1.73m^2); Estimated GFR (Non-African Ame >60 (>=60 mL/min/1.73m^2); Glucose 145 mg/dL (74-106); Potassium 4.7 mmol/L (3.5-5.1); Sodium 141 mmol/L (136-145)
== END 2025-03-15 07:23 | disposition home or self-care (01) ==
PROVIDERS: PCP Nurse Practitioner; Visit Provider Orthopaedic Surgery Orthopaedic Surgery of the Spine
DX: M48.02 Spinal stenosis, cervical region (principal)
CPT/HCPCS: 36415; 71046; 80048; 83036; 85007; 85027; 85610; 85730; 87081; 93005

== ENCOUNTER 2025-03-29 14:35 | Emergency (ER) | payer MEDICARE, MEDICAID, SELFPAY ==
[2025-03-29 14:41] VITALS: BP 118/76; PULSE 93; TEMP 36.8; O2SAT 97; BMI 31.9
--- OUTSIDE RECORDS SUMMARY | 2025-03-29 15:55 | XMS_ITS | CCD ---
Author Organization [facility] Care Team Providers Care Research Nutritionist Name Role Phone REMY, AGRICULTURAL LENDER LACY Admitting Unavailable AICHHOLZ, AGRICULTURAL LENDER LACY Attending Unavailable AICHHOLZ, AGRICULTURAL LENDER LACY Primary Care Unavailable DR NAHOMY BUCHANAN V Consulting Unavailable AICHHOLZ, AGRICULTURAL LENDER LACY Consulting Unavailable AICHHOLZ, AGRICULTURAL LENDER LACY Admitting Unavailable AICHHOLZ, AGRICULTURAL LENDER LACY Attending Unavailable AICHHOLZ, AGRICULTURAL LENDER LACY Primary Care Unavailable AICHHOLZ, AGRICULTURAL LENDER LACY Consulting Unavailable AICHHOLZ, AGRICULTURAL LENDER LACY Admitting Unavailable AICHHOLZ, AGRICULTURAL LENDER LACY Attending Unavailable AICHHOLZ, AGRICULTURAL LENDER LACY Primary Care Unavailable AICHHOLZ, AGRICULTURAL LENDER LACY Primary Care Unavailable ERIC SKINNER Admitting Unavailable ERIC SKINNER Attending Unavailable DRAGAN GONZALES Consulting Unavailabl e ERIC SKINNER Consulting Unavailable CASSIE BACK Consulting Unavailable Aichholz DRESSMAKING TEACHER, Lacy Unavailable Fred Pryor MD Primary Care Provider Aichholleny DRESSMAKING TEACHER, Lacy Unavailable Aichloly BEEF CATTLE FARM MANAGER-Lacy BAILON Primary Care Provider BOUMEGOUAS, MANEL Attending Unavailable LACY ALBERTO J Referring Unavailable REMY LACY J Primary Care Unavailable BOUMEGOUAS, MANEL Attending Unavailable BOUMEGOUAS, MANEL Referring Unavailable HAY ALBERTOA J Primary Care Unavailable BOUMEGOUAS, MANEL Attending Unavailable BOUMEGOUAS, MANEL Referring Unavailable AICAROLDO LACY J Primary Care Unavailable BOUMEGOUAS, MANEL Attending Unavailable BOUMEGOUAS, MANEL Referring Unavailable AICHHOLZ, LACY J Primary Care Unavailable AICHHOLZ, LACY Attending Unavailable AICHHOLZ, LACY Attending Unavailable AICHHOLZ, LACY Attending Unavailable AICHHOLZ, LACY Attending Unavailable Roya PATEL, Fred Austinony Primary Care Unavail able Giedsaleem PATEL, Andrius Telles Attending Unavailable Roya PATEL, Fred [place] Primary [facility] Unavail able Gimi PATEL, Andrius Koki Attending Unavailable Gieditis , Andrius Vytautgerson Attending Unavailable Roya PATEL, Fred [place] Primary Care Unavail able Giedsaleem PATEL, Andrius Koki Attending Unavailable Roya PATEL, Fred Sidney Primary Care Unavail able Cade Hicks Admitting Unavailable Cade Hicks Consulting Unavailable St Falguni PATEL, Obdulio Olson Attending Unavailmariama Pryor MD, [facility]avail able [facility] Fal[facility]i PATEL, Obdulio Olson Attending Unavailmariama Pryor MD, [facility] Primary [facility] Unavail able Allergies Allergy Classification Reported Allergen(s) Allergy Type Date of Onset Reaction(s) Facility (2 sources) Latex; Translations: [Latex] Drug allergy (disorder) 5 The [facility] Repository (20 sources) atorvastatin; Translations: [ATORVASTATIN] Drug Allergy 0 Other [facility] Healthcare (20 sources) Latex Allergy to substance 7 Itching [facility] Healthcare (20 sources) metFORMIN; Translations: [METFORMIN] Drug Allergy 0 Diarrhea, GI intolerance, Vomiting, GI Disturbance [facility] Healthcare (20 sources) Metoprolol; Translations: [METOPROLOL] Drug Allergy 1 Dizziness [facility] (20 sources) pegademase bovine Drug Allergy 7 Unknown [facility] Healthcare (20 sources) Poractant tianna Drug Allergy 7 Swelling [facility] (20 sources) WHEAT DEXTRIN Drug Allergy 7 GI intolerance [facility] Healthcare (4 sources) atorvastatin Drug Allergy 0 muscle cramps, Other (See Comments) [facility] (1 source) pegademase bovine Drug Allergy 7 Other (See Comments[facility]) Poractant tianna Drug Allergy 7 Swelling [facility] (1 source) Wheat preparation Drug Allergy 7 GI Disturbance [facility] (1 source) natural latex rubber; Translations: [LATEX, NATURAL RUBBER] Propensity to adverse reactions to drug (disorder) 7 [facility] Medications Current Medications Medication Drug Class(es) [...] 08/28/2024 10/08/2024 Discontinued (Therapy completed) Continuous Glucose General Ii Farmworker (FreeStyle Helen 2 [place]) device (20 sources) Start: 02-25-2025 End: 02-25-2026 Continuous Glucose General Ii Farmworker (FreeStyle Helen 2 [place]) device Indications: Type 2 diabetes mellitus without complication, without long-term current use of insulin ([facility]) 1 kit Daily 1 each 02/25/2025 02/25/2026 Active Start: 02-27-2024 End: 01-07-2025 Continuous Glucose General Ii Farmworker (FreeStyle Helen 2 [place]) device Indications: Type 2 diabetes mellitus without complication, without long-term current use of insulin ([facility]) 1 each Daily 1 each 02/27/2024 01/07/2025 Discontinued (Therapy completed) Start: 02-27-2024 End: 02-26-2025 Continuous Glucose General Ii Farmworker (FreeStyle Helen 2 [place]) device Indications: Type 2 diabetes mellitus without complication, without long-term current use of insulin ([facility]) 1 each Daily 1 each 02/27/2024 02/26/2025 Active Start: 02-27-2024 End: 02-26-2025 Continuous Glucose General Ii Farmworker (FreeStyle Helen 2 [place]) device Indications: Type 2 diabetes mellitus without complication, without long-term current use of insulin 1 each Daily 1 each 02/27/2024 02/26/2025 Active Start: 02-27-2024 End: 02-26-2025 Continuous Glucose General Ii Farmworker (FreeStyle Helen 2 [place]) device Indications: Type 2 diabetes mellitus without complication, without long-term current use of insulin ([facility]/HCC) 1 each Daily 1 each 02/27/2024 02/26/2025 Active End: 02-25-2025 Continuous Glucose General Ii Farmworker (FreeStyle Helen 2 [place]) device 1 kit 1 (one) time each day 02/25/2025 Discontinued (Reorder) Continuous Glucose Sensor (FreeStyle Helen 14 Day Sensor) misc (1 source) Start: 02-07-2024 End: 03-06-2024 Continuous Glucose Sensor (FreeStyle Helen 14 Day Sensor) misc Indications: Type 2 diabetes mellitus without complication, without long-term current use of insulin (CMS/[facility]) 1 each by Other route Daily for 28 days 2 each 02/07/2024 03/06/2024 Active Continuous Glucose Sensor (FreeStyle Helen 2 Sensor) misc (20 sources) Start: 02-25-2025 End: 03-25-2025 Continuous Glucose Sensor (FreeStyle Helen 2 Sensor) misc Indications: Type 2 diabetes mellitus without complication, without long-term current use of insulin ([facility]) 1 each by Other route every 14 [...] complication, without long-term current use of insulin ([facility]) 1 each Daily for 28 days 2 [...] , Bipolar disorder, current episode mixed, mild ([facility]) Take 1 tablet (10 mg) by mouth [...] mg/actuation spray,non-aerosol nasal spray (4 sources) Start: 022 naloxone (NARCAN) 4 mg/actuation spray,non-aerosol nasal spray Administer 1 spray (4 mg total) into alternating nostrils as needed for opioid reversal. 1 each 1 01/21/2022 Active nitroglycerin 0.4 mg sublingual tablet (4 sources) Nitrate Vasodilator Start: 021 nitroglycerin (NITROSTAT) 0.4 MG SL tablet 1 [...] Dates Sig (Normalized) Sig (Original) Continuous Glucose General Ii Farmworker (FreeStyle Helen 3 [place]) device (3 sources) Start: 05-22-2024 End: 05-28-2024 Continuous Glucose General Ii Farmworker (FreeStyle Helen 3 [place]) device Indications: Type 2 diabetes mellitus without complication, without long-term current use of insulin (CMS/HCC) 1 each Daily 3 each 05/22/2024 05/28/2024 Discontinued (Therapy completed) Start: 05-22-2024 End: 06-21-2024 Continuous Glucose General Ii Farmworker (FreeStyle Helen 3 [place]) device Indications: Type 2 diabetes mellitus without [...] disease (20 sources) 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; Translations: [Coronary [...] source) [facility] (current) use of aspirin; Translations: [SENIOR LIVING CURRENT USE OF ASPIRIN] Onset: 09-13-2022 Episodic Other aftercare (1 source) Other prison (current) drug therapy; Translations: [OTH FORESTRY CONSERVATION WORKER CURRENT DRUG THERAPY] Onset: 09-13-2022 Episodic Other [...] 05-22-2024 05-22-2024 Other aftercare (1 source) intermediate accountant (current) use of insulin; Translations: [FORESTRY CONSERVATION WORKER CURRENT USE OF INSULIN] Onset: 12-18-2021 Episodic [...] Test Name Value Interpretation Reference Range Facility XR OR Spine Cervical Crossfi reon 03-27-2025 XR OR Spine Cervical Crossfire This report was not created by a radiologist, physician, or advanced practice provider. The details of this surgical case can be found within the surgical operative note. The surgical Operative note is located within the patient's chart. Final Signed by: Janine Kenyon Signed (Electronic Signature): 03/27/2025 6:49 am Transcribed DT/TM: 03/27/2025 6:49 (If Report Is Signed, Electronically Signed in Other Vendor System) Normal [facility] Inpatient Clinical Summaryon 03-26-2025 Inpatient Clinical Summary [facility] [address], [place] [id number] [phone] [facility] [address] [place], [place] [address] [phone] Clinical Summary Person Information Name: Esmer Beach Age: 55 Years : 1970 Sex: Female PCP: Fred Pryor MD Marital Status: Phone: PCP: Race: White Ethnicity: Not or Language: Tajik Visit Id: Visit Reason: Speciality: Acuity: Enc Type: Observation Med Service: Orthopedics Arrival: 03/26/2025 05:56:25 Discharge: Dispo Type: Address: [address] [place] [id number] Preferred Communication Mode: Verbal Preferred Language: Tajik Discharge Diagnosis: Spinal stenosis, cervical region Discharged To: Home with family care Mode of Discharge Transportation: Private vehicle Home Treatments: Devices/Equipment: Professional Skilled Services: Special Services and Community Resources: Discharge Orders: Tube Feeding and Supplements Home Health Consult and Ambulatory Referrals Treatment and Wound Care Compression Drain Care 03/26/25 10:12:00 EDT Neurological Checks 03/26/25 10:12:00 EDT, Stop date 03/26/25 10:12:00 EDT, With vital signs Skin Care: Skin Integrity: Localized abnormality Skin Abnormalities: Lines/Devices/BM Information: Urinary Catheter Type: Urinary Catheter Size: Urinary Catheter Activity Date: Pre-insertion Indwelling Catheter Education: Ostomy Type: GI Tube Type: GI Tube Size: GI Tube Activity Date: Date of Last Bowel Movement: 03/26/2025 Functional Status: Sensory Deficits: None Valuables/Belongings: Glasses, Clothes, Electronics History of Falls Within 6 Months: No High Fall Risk Interventions: Activities of Daily Living: ADLs: Minimal assistance Bathing ADL: Dressing ADL: Personal Care Provided: Bed Mobility Assistance: One person assistance Ambulation Assistance: One person assistance Musculoskeletal Abnormality: Gait: Unable to assess Assistive Devices: Special Orthopedic Devices: Current Level of Assistance for Self Care/Mobility: No change from baseline Cognitive Status: Orientation Assessment: Oriented x 4 Level of Consciousness: Alert Characteristics of Speech: Clear Aspiration Risk: None Affect/Behavior: Appropriate, Calm, Cooperative Smoking Status 10 or more cigarettes (1/2 pack or more)/day in last 30 days Laboratory or Other Results This Visit (last charted value for your 03/26/2025 visit) POC Testing 03/26/2025 9:27 AM POC Gluc Random: 150 mg/dL -- Normal range between ( 70 and 99 ) Measurements: Height: 160 cm Dosing Weight: 81.8 kg Measured Weight: 81.8 kg Blood Pressure: 120 mmHg/ 75 mmHg BMI: 31.95 kg/m2 Respiratory: Respirations: Unlabored Respiratory Symptoms: Cough CPAP/BiPAP: Machine Status: Expiratory Pressure: Inspiratory Pressure: Set Respiratory Rate: Oxygen Flow Rate: 2 L/min Inspiratory Time: Cardiovascular: Heart Rhythm: Regular Vital Signs: Temp Axillary: Temp Temporal Artery: 36.0 degC Temp Oral: 36.4 degC Temp Rectal: Apical Heart Rate: Peripheral Pulse Rate: 69 bpm Heart Rate: 94 bpm Respiratory Rate: 11 br/min Diet: Diet: Feeding Tolerance: Appetite: Good Procedures BILAT BIG TOENAIL EXCISION Immunizations No Immunizations Documented This Visit Allergies Latex (Swelling) (Itching) (Burning) metFORMIN (Diarrhea) Patient Friendly Med Rec List Medications That Have Not Changed Other Medications ARIPiprazole (Abilify 5 mg oral tablet) 1 Tabs Oral (given by mouth) once a day (at bedtime). Last Dose: ___ escitalopram (Lexapro 10 mg oral tablet) 1 Tabs Oral (given by mouth) once a day (at bedtime). Last Dose: ___ oxyCODONE-acetaminophe n (Percocet 5/325) 1 Tabs Oral (given by mouth) every 6 hours as needed as needed for pain. Last Dose: ___ semaglutide (Ozempic 2 mg/3 mL (0.25 mg or 0.5 mg dose) subcutaneous solution) 2 Milligram Subcutaneous (under the skin) every week as needed WED LD 03-06-25. Last Dose: ___ Care Team Members: Attending Physician: Obdulio Rose MD Consulting Physician: Cade Hicks PA-C Referring Physician: Follow up: With: Address: When: Obdulio Rose MD [address], [place] [address] Within 1 to 2 weeks Comments: Call for followup appointment - call office am at 8 and report drain outputs. [phone] ext [phone]. if drain is low enough, will need to come into office between 8-11 to have removed. Future Scheduled Appointments: PATIENT EDUCATION INFORMATION Instructions: Discharge Instructions for Cervical Fusion You had a cervical fusion. During this procedure, your?healthcare provider?locked?togeth er (fused) some of the bones in the curve of your neck. This limits the m (more content not included)... Normal [facility] Operative Reporton Operative Report Preoperative Diagnos is C5-7 degenerative disc disease with stenosis and radiculopathy Postoperative Diagnosis Same Operation C5-7 ACDF Surgeon(s) Obdulio Rose MD (Surgeon - Primary) Direct Customer Service Representative Cade Hicks PA-C (Balance Assembler) Anesthesia General Pedrito Leone (Provider) Marlin Leonard (Provider) Estimated Blood Loss 20 mL Findings stenosis Specimen(s) none Complications none Catheters, Drains, Tubes Device: Drain ALEXI Hubless Flat 7mm 7043 Electronically signed by Cade Hicks PA-C 03/26/25 09:20 EDT Electronically signed by Obdulio Rose MD 03/26/2025 09:25 EDT Normal [facility] Orthopedic Progress Noteon 0 03-26-2025 Orthopedic Progress Note Patient s/p C5-7 ACDF done earlier today. Adamant about being discharged home today despite being informed in office its an overnight stay. Unable to set up HH for drain care Nurse to educate patient on drain care & signs/symptoms of a hematoma. Follow up am in office to have drain removed. Electronically signed by Cade Hicks PA-C 03/26/25 17:45 EDT Normal [facility] POC Glucose Randomon 025 Glucose [Mass/Vol] 150 mg/dL High 70-99 [facility] Comment on above: Performed By: #### C [id number] #### [address] [address] Glucose [Mass/Vol] 184 mg/dL High 70-99 [facility] Comment on above: Performed By: #### C [id number] #### [address] [address] HbA1c (Bld) [Mass fraction]o n 01-07-2025 Interpretation and review of laboratory results Abnormal [facility] - Hematology and Cell countson 01-07-2025 HbA1c (Bld) [Mass fraction] 7.8 % [facility] ALL CBC WITH AUTO DIFFon BASOPHILS ABSOLUTE AUTO 0.1 [facility] Basophils/100 WBC (Bld) 0.8 % 0.2 - 2.0 % [facility] Eosinophils/100 WBC (Bld) 1.7 % 0.9 - 7.0 % [facility] Erythrocyte distribution width (RBC) [Ratio] 15.4 % High 11.0 - 15.0 % [facility] Hematocrit (Bld) [Volume fraction] 53.1 % High 36.0 - 48.0 % [facility] Hemoglobin (Bld) [Mass/Vol] 18.2 g/dL High 12.0 - 16.0 g/dL [facility] IMMATURE GRANULOCYTES ABS AUTO 0.04 High [facility] Immature granulocytes/100 WBC (Bld) 0.3 % 0.0 - 0.5 % [facility] Interpretation and review of laboratory results Abnormal [facility] LYMPHOCYTES ABSOLUTE AUTO 3.5 [facility] Lymphocytes/100 WBC (Bld) 27.7 % 20.5 - 60.0 % [facility] MCH (RBC) [Entitic mass] 30.4 pg 26.7 - 34.0 pg [facility] MCHC (RBC) [Mass/Vol] 34.3 g/dL 29.9 - 35.2 g/dL [facility] MCV (RBC) [Entitic vol] 88.6 fL 81.0 - 99.0 fL [facility] MONOCYTES ABSOLUTE AUTO 0.4 [facility] Monocytes/100 WBC (Bld) 3.3 % 1.7 - 12.0 % [facility] NEUTROPHILS ABSOLUTE AUTO 8.4 High [facility] Healthcare Neutrophils/100 WBC (Bld) 66.2 % 43.0 - 75.0 % [facility] Platelet mean volume (Bld) [Entitic vol] 8.8 fL Low 9.5 - 13.5 fL [facility] TBH EO # 0.2 [facility]H PLT 249 [facility] TB RBC 5.99 High [facility] TB WBC 12.6 High [facility] XR CHEST 2Von 10-19-2024 [place] [address] XRay Report Signed Patient: ESMER BEACH MR#: [id number] : 1970 Acct:[id number] Age/Sex: 54 / F ADM Date: 10/19/24 Loc: [facility] Attending Dr: Obdulio Coles M.D. Ordering Physician: Obdulio Coles M.D. Date of Service: 10/19/24 Procedure(s): XR chest 2V Accession Number(s): [id number] cc: Lacy Alberto NP; Obdulio Coles M.D. [address] [address] Patient Name: ESMER BEACH MRN: [facility]:[id number] date: 1970 Sex: F Assigned Patient Location: MS Current Patient Location: MS Accession/Order Number: [id number] Exam Date: 10/19/2024 11:29 Report Date: 10/19/2024 [...] Gloria Koch M.D.10/19/2024 11:30 AM Dictation Location: [place] [address] Electronically authenticated by: [id number] Y Date: 10/19/2024 11:30 Dictated By: Gloria Koch M.D. Signed By: 10/19/24 1133 DD/ 1130 TD/TT: Steel Crane Operator: [facility] Radiology, Radiologist, - 10/19/2024 [place] [address] XRay Report Signed Patient: ESMER BEACH MR#: [id number] : 1970 Acct:[id number] Age/Sex: 54 / F ADM Date: 10/19/24 Loc: PST Attending Dr: Obdulio Coles M.D. Ordering Physician: Obdulio Coles M.D. Date of Service: 10/19/24 Procedure(s): XR chest 2V Accession Number(s): [id number] cc: Lacy Alberto DRESSMAKING TEACHER; Obdulio Coles M.D. The [address] [address] Patient Name: ESMER BEACH MRN: [facility]:[id number] date: 1970 Sex: F Assigned Patient Location: MS Current Patient Location: MS Accession/Order Number: [id number] Exam Date: 10/19/2024 11:29 Report Date: 10/19/2024 [...] Gloria Koch M.D.10/19/2024 11:30 AM Dictation Location: [place] [address] Electronically authenticated by: [id number] Y Date: 10/19/2024 11:30 Dictated By: Gloria Koch M.D. Signed By: 10/19/24 1133 DD/ 1130 TD/TT: Steel Crane Operator: [facility] Radiology Study observation (narrative) [facility] XR CHEST 2VOrdered By: Radio logist Radiology on 10-19-2024 [facility] Work Phone: POCT EKGon 10-18-2024 [facility] No Panel InformationOrdered By: Radiologist Radiology on 10-05-2024 [facility] [employer] Work Phone: No Panel Informationon 10-05 Radiology Study observation (narrative) [facility] XR CERVICAL SPINE 5Von 10-05 [place] [address] XRay Report Signed Patient: ESMER BEACH MR#: [id number] : 1970 Acct:[id number] Age/Sex: 54 / F ADM Date: 10/05/24 Loc: EC Attending Dr: Obdulio Coles M.D. Ordering Physician: Obdulio Coles M.D. Date of Service: 10/05/24 Procedure(s): XR cervical spine 5V Accession Number(s): [id number] cc: Lacy Alberto DRESSMAKING TEACHER; Obdulio Coles M.D. The [address] [address] Patient Name: ESMER BEACH MRN: [facility]:[id number] date: 1970 Sex: F Assigned Patient Location: Current Patient Location: Accession/Order Number: [id number] Exam Date: 10/05/2024 12:00 Report Date: 10/05/2024 [...] Gloria Koch M.D.10/05/2024 12:21 PM Dictation Location: [place] [address] Electronically authenticated by: [id number] Y Date: 10/05/2024 12:21 Dictated By: Gloria Koch M.D. Signed By: 10/05/24 1223 DD/ 1221 TD/TT: Steel Crane Operator: [facility] Radiology, Radiologist, - 10/05/2024 The [place] [id number] XRay Report Signed Patient: ESMER BEACH MR#: [id number] : 1970 Acct:[id number] Age/Sex: 54 / F ADM Date: 10/05/24 Loc: EC Attending Dr: Obdulio Coles M.D. Ordering Physician: Obdulio Coles M.D. Date of Service: 10/05/24 Procedure(s): XR cervical spine 5V Accession Number(s): [id number] cc: Lacy Alberto DRESSMAKING TEACHER; Obdulio Coles M.D. [place] [address] Patient Name: ESMER BEACH MRN: [id number] date: 1970 Sex: F Assigned Patient Location: Current Patient Location: Accession/Order Number: [id number] Exam Date: 10/05/2024 12:00 Report Date: 10/05/2024 [...] Gloria Koch M.D.10/05/2024 12:21 PM Dictation Location: [place] [address] Electronically authenticated by: [id number] Y Date: 10/05/2024 12:21 Dictated By: Gloria Koch M.D. Signed By: 10/05/24 1223 DD/ 122 TD/TT: Steel Crane Operator: PRASANNA Ramos XR LUMBAR [place]INE [place] [address] [place] [address] XRay Report Signed Patient: ESMER BEACH MR#: [id number] : 1970 Acct:[id number] Age/Sex: 54 / F ADM Date: 10/05/24 Loc: EC Attending Dr: Obdulio Coles M.D. Ordering Physician: Obdulio Coles M.D. Date of Service: 10/05/24 Procedure(s): XR lumbar spine min 4V Accession Number(s): [id number] cc: Lacy Alberto DRESSMAKING TEACHER; Obdulio Coles M.D. [place] [address] Patient Name: ESMER BEACH MRN: [id number] date: 1970 Sex: F Assigned Patient Location: Current Patient Location: Accession/Order Number: [id number] Exam Date: 10/05/2024 12:00 Report Date: 10/05/2024 [...] Gloria Koch M.D.10/05/2024 12:21 PM Dictation Location: [place] [address] Electronically authenticated by: [id number] Y Date: 10/05/2024 12:21 Dictated By: Gloria Koch M.D. Signed By: 10/05/24 1223 DD/ 1221 TD/TT: Steel Crane Operator: [facility] Radiology, Radiologist, - 10/05/2024 [place] [address] XRay Report Signed Patient: ESMER BEACH MR#: [id number] : 1970 Acct:[id number] Age/Sex: 54 / F ADM Date: 10/05/24 Loc: Attending Dr: Obdulio Coles M.D. Ordering Physician: Obdulio Coles M.D. Date of Service: 10/05/24 Procedure(s): XR lumbar spine min 4V Accession Number(s): [id number] cc: Lacy Alberto DRESSMAKING TEACHER; Obdulio Coles M.D. The [place] [address] Patient Name: ESMER BEACH MRN: [facility]:[id number] date: 1970 Sex: F Assigned Patient Location: Current Patient Location: Accession/Order Number: [id number] Exam Date: 10/05/2024 12:00 Report Date: 10/05/2024 [...] Gloria Koch M.D.10/05/2024 12:21 PM Dictation Location: [place] [address] Electronically authenticated by: [id number] Y Date: 10/05/2024 12:21 Dictated By: Gloria Koch M.D. Signed By: 10/05/24 1223 DD/ 1221 TD/TT: Steel Crane Operator: [facility] MR Cervical spine WO contras ton 08-10-2024 [place] [address] Magnetic Resonance Report Signed Patient: ESMER BEACH MR#: [id number] : 1970 Acct:[id number] Age/Sex: 54 / F ADM Date: 08/10/24 Loc: MRI Attending Dr: Edgardo Menon M.D. Ordering Physician: Edgardo Menon M.D. Date of Service: 08/10/24 Procedure(s): MR cervical spine wo con Accession Number(s): [id number] cc: Lacy Alberto DRESSMAKING TEACHER; Edgardo Menon M.D. The [place] [address] Patient Name: ESMER BEACH MRN: [facility]:[id number] date: 1970 Sex: F Assigned Patient Location: MRI Current Patient Location: MRI Accession/Order Number: [id number] Exam Date: 08/10/2024 13:10 Report Date: 08/10/2024 [...] Signed By: 08/10/24 1459 DD/ 1456 TD/TT: Steel Crane Operator: [facility] Radiology, Radiologist, MD - 08/10/2024 [place] [address] Magnetic Resonance Report Signed Patient: ESMER BEACH MR#: [id number] : 1970 Acct:[id number] Age/Sex: 54 / F ADM Date: 08/10/24 Loc: MRI Attending Dr: Edgardo Menon M.D. Ordering Physician: Edgardo Menon M.D. Date of Service: 08/10/24 Procedure(s): MR cervical spine wo con Accession Number(s): [id number] cc: Lacy Alberto NP; Edgardo Menon M.D. [place] [address] Patient Name: ESMER BEACH MRN: [id number] date: 1970 Sex: F Assigned Patient Location: MRI Current Patient Location: MRI Accession/Order Number: [id number] Exam Date: 08/10/2024 13:10 Report Date: 08/10/2024 [...] Signed By: 08/10/24 1459 DD/ 55 TD/TT: [employer] Operator: [facility] Radiology Study observation (narrative) [facility] MR Cervical spine WO contras tOrdered By: Radiologist Radiology on 08-10-2024 [facility] Work Phone: HbA1c (Bld) [Mass fraction]o n 08-06-2024 Interpretation and review of laboratory results Abnormal [facility] - Hematology and Cell countson 08-06-2024 HbA1c (Bld) [Mass fraction] 8.80 % [facility] ALL CBC WITH AUTO DIFFon BASOPHILS ABSOLUTE AUTO 0.1 [facility] Basophils/100 WBC (Bld) 0.6 % 0.2 - 2.0 % [facility] Eosinophils/100 WBC (Bld) 1.7 % 0.9 - 7.0 % [facility] Erythrocyte distribution width (RBC) [Ratio] 13.8 % 11.0 - 15.0 % [facility] Hematocrit (Bld) [Volume fraction] 55.5 % High 36.0 - 48.0 % [facility] Hemoglobin (Bld) [Mass/Vol] 18.7 g/dL High 12.0 - 16.0 g/dL [facility] IMMATURE GRANULOCYTES ABS AUTO 0.03 [facility] Immature granulocytes/100 WBC (Bld) 0.2 % 0.0 - 0.5 % [facility] Interpretation and review of laboratory results Abnormal [facility] LYMPHOCYTES ABSOLUTE AUTO 2.9 [facility] Lymphocytes/100 WBC (Bld) 23.1 % 20.5 - 60.0 % [facility] MCH (RBC) [Entitic mass] 30.6 pg 26.7 - 34.0 pg [facility] MCHC (RBC) [Mass/Vol] 33.7 g/dL 29.9 - 35.2 g/dL [facility] MCV (RBC) [Entitic vol] 90.7 fL 81.0 - 99.0 fL [facility] MONOCYTES ABSOLUTE AUTO 0.6 [facility] Monocytes/100 WBC (Bld) 4.5 % 1.7 - 12.0 % [facility] NEUTROPHILS ABSOLUTE AUTO 8.9 High [facility] Neutrophils/100 WBC (Bld) 69.9 % 43.0 - 75.0 % [facility] Platelet mean volume (Bld) [Entitic vol] 9.2 fL Low 9.5 - 13.5 fL [facility] TBH EO # 0.2 [facility] PLT 235 [facility] RBC 6.12 High [facility] WBC 12.7 High [facility] CBC W MANUAL DIFFon 09-10-19 23 ATYPICAL LYMPH # 1.49 103/ul Normal [facility] Comment on above: Performed By: #### C EMANI #### [facility] [address] [place] [address] Dr. Shakira Bahena ATYPICAL LYMPH % 8 % Normal [facility] Comment on above: Performed By: #### C EMANI #### [facility] [address] [place] [address] Dr. Shakira Bahena BAND # 0.0 103/ul Normal 0.0-0.3 [facility] Comment on above: Performed By: #### C EMANI #### [facility] [address] [place] [address] Dr. Shakira Bahena BAND % 0 % Normal 0-5 [facility] Comment on above: Performed By: #### C EMANI #### [facility] [address] [place] [address] Dr. Shakira Bahena BASOM # 0.00 103/ul Normal 0.00-0.10 [facility] Comment on above: Performed By: #### C EMANI #### [facility] [address] [place] [address] Dr. Shakira Bahena BASOM % 0.0 % Critically low 0.2-2.0 The [facility] Comment on above: Performed By: #### C EMANI #### [facility] [address] [place] [address] Dr. Shakira Bahena BLAST # Normal [facility] Comment on above: Performed By: #### C EMANI #### [facility] [address] [address] [address] Shakira Bahena BLAST % Normal [facility] Comment on above: Performed By: #### C EMANI #### [facility] [address] [place] [address] Dr. Shakira Bahena CORRECTED WBC Normal 4.0-11.0 The [facility] Comment on above: Performed By: #### C EMANI #### [facility] [address] [address] [address] Shakira Bahena EOS # 0.56 103/ul Normal 0.00-0.70 [facility] Comment on above: Performed By: #### C EMANI #### [facility] [address] [place] [address] Dr. Shakira Bahena EOS% 3.0 % Normal 0.9-7.0 [facility] Comment on above: Performed By: #### C EMANI #### [facility] [address] [place] [address] Dr. Shakira Bahena HCT 50.8 % Critically high 36.0-48.0 [facility] Comment on above: Performed By: #### C EMANI #### [facility] [address] [place] [address] Dr. Shakira Bahena HGB 17.7 g/dl Critically high 12.0-16.0 [facility] Comment on above: Performed By: #### C EMANI #### [facility] [address] [place] [address] Dr. Shakira Bahena LYMPHM # 1.30 103/ul Normal 1.20-3.80 [facility] Comment on above: Performed By: #### C EMANI #### [facility] [address] [place] [address] Dr. Shakira Bahena LYMPHM% 7.0 % Critically low 20.5-60.0 The [facility] Comment on above: Performed By: #### C EMANI #### [facility] [address] [place] [address] Dr. Shakira Bahena MCH 30.7 pg Normal 26.7-34.0 [facility] Comment on above: Performed By: #### C EMANI #### [facility] [address] [place] [address] Dr. Shakira Bahena MCHC 34.8 g/dl Normal 29.9-35.2 [facility] Comment on above: Performed By: #### C EMANI #### [facility] [address] [place] [address] Dr. Shakira Bahena MCV 88.0 fL Normal 81.0-99.0 [facility] Comment on above: Performed By: #### C EMANI #### [facility] [address] [place] [address] Dr. Shakira Bahena METAMYELOCYTE # Normal [facility] Comment on above: Performed By: #### C EMANI #### [facility] [address] [place] [address] Dr. Shakira Bahena METAMYELOCYTE % Normal [facility] Comment on above: Performed By: #### C EMANI #### [facility] [address] [place] [address] Dr. Shakira Bahena MONOM# 0.37 103/ul Normal 0.30-0.80 [facility] Comment on above: Performed By: #### C EMANI #### [facility] [address] [place] [address] Dr. Shakira Bahena MONOM% 2.0 % Normal 1.7-12.0 [facility] Comment on above: Performed By: #### C EMANI #### [facility] [address] [place] [address] Dr. Shakira Bahena MPV 10.1 fL Normal 9.5-13.5 [facility] Comment on above: Performed By: #### C EMANI #### [facility] [address] [place] [address] Dr. Shakira Bahena MYELOCYTE # Normal [facility] Comment on above: Performed By: #### C EMANI #### [facility] [address] [place] [address] Dr. Shakira Bahena MYELOCYTE % Normal [facility] Comment on above: Performed By: #### C EMANI #### [facility] [address] [address] [address] Shakira Bahena NRBC Normal [facility] Comment on above: Performed By: #### C EMANI #### [facility] [address] [address] [address] Shakira Bahena PLT 235 103/ul Normal 150-450 [facility] Comment on above: Performed By: #### C EMANI #### [facility] [address] [place] [address] Dr. Shakira Bahena RBC 5.77 106/ul Critically high 4.20-5.40 [facility] Comment on above: Performed By: #### C EMANI #### [facility] [address] [place] [address] Dr. Shakira Bahena RDW 14.5 % Normal 11.0-15.0 [facility] Comment on above: Performed By: #### C EMANI #### [facility] [address] [place] [address] Dr. Shakira Bahena SEG # 14.88 103/ul Critically high 1.40-6.50 [facility] Comment on above: Performed By: #### C EMANI #### [facility] [address] [place] [address] Dr. Shakira Bahena SEG % 80.0 % Critically high 43.0-75.0 [facility] Comment on above: Performed By: #### Elma JOAQUIN #### [facility] [address] [place] [address] Dr. Shakira Bahena WBC 18.6 103/ul Critically high 4.0-11.0 [facility] Comment on above: Performed By: #### C EMANI #### [facility] [address] [place] [address] ABD/PELVIS WO CONon [...] CASSIE BACK Date: 2022-09-09 21:39 Normal [facility] ER URINE PROFILEon 3 Bilirubin Ql (U) Negative Normal NEGATIVE [facility] Comment on above: Performed By: #### U MICRO, ERUR #### [facility] [address] [address] [address] Shakira Bahena Clarity (U) CLEAR Normal CLEAR [facility] Comment on above: Performed By: #### U MICRO, ERUR #### [facility] [address] [address] [address] Shakira Bahena Color (U) RED Abnormal YELLOW [facility] Comment on above: Performed By: #### U MICRO, ERUR #### [facility] [address] [address] [address] Shakira Bahena ERUAHD A micrscopic examination will be performed if indicated. Normal [facility] Comment on above: Performed By: #### U MICRO, ERUR #### [facility] [address] [address] [address] Shakira Bahena Glucose Ql (U) Negative Normal NEGATIVE [facility] Comment on above: Performed By: #### U MICRO, ERUR #### [facility] [address] [address] [address] Shakira Bahena Hemoglobin Ql (U) LARGE Abnormal NEGATIVE [facility] Comment on above: Performed By: #### U MICRO, ERUR #### [facility] [address] [address] [address] Shakira Bahena Ketones Ql (U) Negative Normal NEGATIVE [facility] Comment on above: Performed By: #### U MICRO, ERUR #### [facility] [address] [place] [address] Dr. Shakira Bahena LEUKOCYTES TRACE Abnormal NEGATIVE [facility] Comment on above: Performed By: #### U MICRO, ERUR #### [facility] [address] [address] [address] Shakira Bahena Nitrite Ql (U) Negative Normal NEGATIVE [facility] Comment on above: Performed By: #### U MICRO, ERUR #### [facility] [address] [place] [address] Dr. Shakira Bahena pH (U) 5.5 [pH] Normal 5-9 [facility] Comment on above: Performed By: #### U MICRO, ERUR #### [facility] [address] [address] [address] Shakira Bahena Protein (U) [Mass/Vol] 100 mg/dL Abnormal NEGAT XAVIER/ TRACE [facility] Comment on above: Performed By: #### U MICRO, ERUR #### [facility] [address] [place] [address] Dr. Shakira Bahena SPEC GRAVITY 1.010 Normal 1.005-<=1.02 5 [facility] Comment on above: Performed By: #### U MICRO, ERUR #### [facility] [address] [place] [address] Dr. Shakira Bahena UR MICRO IND INDICATED Normal [facility] Comment on above: Performed By: #### U MICRO, ERUR #### [facility] [address] [place] [address] Dr. Shakira Bahena Urobilinogen Qn (U) 1.0 {Navin'U}/dL Normal 0.2 - 1. 0 [facility] Comment on above: Performed By: #### U MICRO, ERUR #### [facility] [address] [place] [address] Dr. Shakira Bahena LACTATE/LACTIC ACIDon 2022 Lactate [Moles/Vol] 0.7 mmol/L Normal 0.4-2.0 [facility] Comment on above: Performed By: #### L ACT #### [facility] [address] [place] [address] Dr. Shakira Bahena PROF 14(COMP METB)on 023 Albumin [Mass/Vol] 3.5 g/dL Normal 3.4-5.0 [facility] Comment on above: Performed By: #### P T, PTT #### [facility] [address] [place] [address] Dr. Shakira Bahena Albumin/Globulin [Mass ratio] 1.1 {ratio} Normal [facility] Comment on above: Performed By: #### P T, PTT #### [facility] [address] [place] [address] Dr. Shakira Bahena ALP [Catalytic activity/Vol] 104 U/L Normal 46-116 [facility] Comment on above: Performed By: #### P T, PTT #### [facility] [address] [place] [address] Dr. Shakira Bahena ALT [Catalytic activity/Vol] 20 U/L Normal 14-59 [facility] Comment on above: Performed By: #### P T, PTT #### [facility] [address] [place] [address] Dr. Shakira Bahena Anion gap [Moles/Vol] 9.9 mmol/L Normal [facility] Comment on above: Performed By: #### P T, PTT #### [facility] [address] [address] [address] Shakira Bahena AST [Catalytic activity/Vol] 24 U/L Normal 15-37 [facility] Comment on above: Performed By: #### P T, PTT #### [facility] [address] [address] [address] Shakira Bahena Bilirubin [Mass/Vol] 0.4 mg/dL Normal 0.2-1.0 [facility] Comment on above: Performed By: #### P T, PTT #### [facility] [address] [address] [address] Shakira Bahena Calcium [Mass/Vol] 8.6 mg/dL Normal 8.5-10.1 [facility] Comment on above: Performed By: #### P T, PTT #### [facility] [address] [place] [address] Dr. Shakira Bahena Chloride [Moles/Vol] 106 mmol/L Normal 98-107 [facility] Comment on above: Performed By: #### P T, PTT #### [facility] [address] [address] [address] Shakira Bahena CO2 [Moles/Vol] 26.3 mmol/L Normal 21.0-32.0 [facility] Comment on above: Performed By: #### P T, PTT #### [facility] [address] [address] [address] Shakira Bahena Creatinine [Mass/Vol] 0.60 mg/dL Normal 0.55-1.02 [facility] Comment on above: Performed By: #### P T, PTT #### [facility] [address] [place] [address] Dr. Shakira Bahena EGFR-AF KENYAN >60 Normal >=60 [facility] Comment on above: Performed By: #### P T, PTT #### [facility] [address] [address] [address] Shakira Bahena EGFR-NON AF KENYAN >60 Normal >=60 [facility] Comment on above: Performed By: #### P T, PTT #### [facility] [address] [place] [address] Dr. Shakira Bahena Globulin (S) [Mass/Vol] 3.2 g/dL Normal [facility] Comment on above: Performed By: #### P T, PTT #### [facility] [address] [place] [address] Dr. Shakira Bahena Glucose [Mass/Vol] 105 mg/dL Normal 74-[address] [facility] Comment on above: Performed By: #### P T, PTT #### [facility] [address] [place] [address] Dr. Shakira Bahena Potassium [Moles/Vol] 4.2 mmol/L Normal 3.5-5.1 [facility] Comment on above: Performed By: #### P T, PTT #### [facility] [address] [place] [address] Dr. Shakira Bahena Protein [Mass/Vol] 6.7 g/dL Normal 6.4-8.[address] [facility] Comment on above: Performed By: #### P T, PTT #### [facility] [address] [place] [address] Dr. Shakira Bahena Sodium [Moles/Vol] 138 mmol/L Normal 136-145 [facility] Comment on above: Performed By: #### P T, PTT #### [facility] [address] [place] [address] Dr. Shakira Bahena Urea nitrogen [Mass/Vol] 11.0 mg/dL Normal 7.0-18.0 [facility] Comment on above: Performed By: #### P T, PTT #### [facility] [address] [place] [address] Dr. Shakira Bahena Urea nitrogen/Creatinine [Mass ratio] 18.3 mg/mg Normal [facility] Comment on above: Performed By: #### P T, PTT #### [facility] [address] [place] [address] Dr. Shakira Bahena PROTIMEon 09-09-2022 INR Coag (PPP) [Relative time] 0.93 {INR} Normal [facility] Comment on above: Performed By: #### P T, PTT #### [facility] [address] [place] [address] Dr. Shakira Bahena INR GUIDELINES SEE BELOW Normal [facility] Comment on above: Result Comment: SHANA RED INR: 2.0 - 3.0 CONDITIONS NOT LISTED BELOW 2.5 - 3.5 FOR PROSTHETIC HEART VALVE REPLACEMENT 2.5 - 3.5 RECURRENT THROMBOSIS Performed By: #### P T, PTT #### [facility] [address] [place] [address] Dr. Shakira Bahena PT Coag (PPP) [Time] 9.9 s Normal 9.0-11.6 [facility] Comment on above: Performed By: #### P T, PTT #### [facility] [address] [place] [address] Dr. Shakira Bahena PTTon 09-09-2022 aPTT Coag (Bld) [Time] 28.0 s Normal 22.3-36.2 [facility] Comment on above: Performed By: #### P T, PTT #### [facility] [address] [place] [address] Dr. Shakira Bahena URINE MICROSCOPIC ONLYon BACTERIA NONE SEEN Normal NONE SEEN [facility] Comment on above: Performed By: #### U MICRO, ERUR #### [facility] [address] [place] [address] Dr. Shakira Bahena Bacteria identified Cx Nom (U) NOT INDICATED Normal [facility] Comment on above: Performed By: #### U MICRO, ERUR #### [facility] [address] [place] [address] Dr. Shakira Bahena CAST NONE SEEN Normal NONE SEEN [facility] Comment on above: Performed By: #### U MICRO, ERUR #### [facility] [address] [place] [address] Dr. Shakira Bahena Crystals LM Nom (Urine sed) NONE SEEN Normal NONE SEEN [facility] Comment on above: Performed By: #### U MICRO, ERUR #### [facility] [address] [place] [address] Dr. Shakira Bahena Epithelial cells LM Ql (Urine sed) FEW Abnormal NONE SEEN /RARE [facility] Comment on above: Performed By: #### U MICRO, ERUR #### [facility] [address] [address] [address] Shakira Bahena MUCOUS NONE SEEN Normal NONE SEEN [facility] Comment on above: Performed By: #### U MICRO, ERUR #### [facility] [address] [address] [address] Shakira Bahena RBC (U) [#/Vol] /uL Abnormal 0-2 [facility] Comment on above: Performed By: #### U MICRO, ERUR #### [facility] [address] [address] [address] Shakira Bahena WBC 2-5 Abnormal NONE SEEN [facility] Comment on above: Performed By: #### U MICRO, ERUR #### [facility] [address] [address] [address] Shakira Bahena MG MAMM SCREEN 3D ERLINDA CADon 08-31-2022 MG MAMM SCREEN 3D ERLINDA CAD Patient: ESMER BEACH Exam Date: 08/31/2022 : 1970 Gender:F Ordering : [facility] Admission #: [id number] Family : Order #: [id number] CLICK HERE TO VIEW EXAM RADIOLOGY REPORT [...] lung cancer at age 64. LOCATION: [facility] BREAST COMPOSITION: Scattered areas fibroglandular [...] MD on 08/31/2022 at 14:10 Normal [facility] CBC AUTO DIFFon 12-16-2021 BASO # 0.1 103/ul Normal 0.0-0.1 [facility] Comment on above: Performed By: #### C BC #### [facility] [address] [place] [address] Dr. Shakira Bahena Basophils/100 WBC (Bld) 0.6 % Normal 0.2-2.0 [facility] Comment on above: Performed By: #### C BC #### [facility] [address] [place] [address] Dr. Shakira Bahena EO # 0.3 103/ul Normal 0.0-0.7 [facility] Comment on above: Performed By: #### C BC #### [facility] [address] [place] [address] Dr. Shakira Bahena Eosinophils/100 WBC (Bld) 1.7 % Normal 0.9-7.0 [facility] Comment on above: Performed By: #### C BC #### [facility] [address] [place] [address] Dr. Shakira Bahena Erythrocyte distribution width (RBC) [Ratio] 15.6 % Critically high 11.0-15.0 [facility] Comment on above: Performed By: #### C BC #### [facility] [address] [place] [address] Dr. Shakira Bahena Hematocrit (Bld) [Volume fraction] 50.7 % Critically high 36.0-48.0 [facility] Comment on above: Performed By: #### C BC #### [facility] [address] [place] [address] Dr. Shakira Bahena Hemoglobin (Bld) [Mass/Vol] 16.0 g/dL Normal 12.0-16.0 [facility] Comment on above: Performed By: #### C BC #### [facility] [address] [place] [address] Dr. Shakira Bahena IG # 0.06 10e3/ul Critically high 0.00-0.03 [facility] Comment on above: Performed By: #### C BC #### [facility] [address] [place] [address] Dr. Shakira Bahena IG % 0.4 % Normal 0.0-0.5 [facility] Comment on above: Performed By: #### C BC #### [facility] [address] [place] [address] Dr. Shakira Bahena LYMPH # 3.7 103/ul Normal 1.2-3.8 [facility] Comment on above: Performed By: #### C BC #### [facility] [address] [place] [address] Dr. Shakira Bahena Lymphocytes/100 WBC (Bld) 23.9 % Normal 20.5-60.0 [facility] Comment on above: Performed By: #### C BC #### [facility] [address] [place] [address] Dr. Shakira Bahena MANUAL DIFF REQ NO Normal [facility] Comment on above: Performed By: #### C BC #### [facility] [address] [place] [address] Dr. Shakira Bahena MCH (RBC) [Entitic mass] 28.7 pg Normal 26.7-34.0 [facility] Comment on above: Performed By: #### C BC #### [facility] [address] [place] [address] Dr. Shakira Bahena MCHC (RBC) [Mass/Vol] 31.6 g/dL Normal 29.9-35.2 [facility] Comment on above: Performed By: #### C BC #### [facility] [address] [place] [address] Dr. Shakira Bahena MCV (RBC) [Entitic vol] 90.9 fL Normal 81.0-99.0 [facility] Comment on above: Performed By: #### C BC #### [facility] [address] [place] [address] Dr. Shakira Bahena MONO # 0.7 103/ul Normal 0.3-0.8 [facility] Comment on above: Performed By: #### C BC #### [facility] [address] [address] [address] Shakira Bahena Monocytes/100 WBC (Bld) 4.5 % Normal 1.7-12.0 [facility] Comment on above: Performed By: #### C BC #### [facility] [address] [address] [address] Shakira Bahena NEUT # 10.8 103/ul Critically high 1.4-6.5 [facility] [place] [facility] Comment on above: Performed By: #### C BC #### [facility] [address] [place] [address] Dr. Shakira Bahena Neutrophils/100 WBC (Bld) 68.9 % Normal 43.0-75.0 [facility] Comment on above: Performed By: #### C BC #### [facility] [address] [place] [address] Dr. Shakira Bahena Platelet mean volume (Bld) [Entitic vol] 10.0 fL Normal 9.5-13.5 [facility] Comment on above: Performed By: #### C BC #### [facility] [address] [place] [address] Dr. Shakira Bahena PLT 309 103/ul Normal 150-450 [facility] Comment on above: Performed By: #### C BC #### [facility] [address] [place] [address] Dr. Shakira Bahena RBC 5.58 106/ul Critically high 4.20-5.40 [facility] [place] [facility] Comment on above: Performed By: #### C BC #### [facility] [address] [place] [address] Dr. Shakira Bahena WBC 15.6 103/ul Critically high 4.0-11.0 [facility] [place] [facility] Comment on above: Performed By: #### C BC #### [facility] [address] [place] [address] Dr. Shakira Bahena GLYCOHEMOGLOBIN A1Con 2021 ADA RECOMMENDATION SEE BELOW Normal [facility] Comment on above: Result Comment: ADA RECOMMENDED LIMIT 4.0 - 6.0 ADA THERAPEUTIC TARGET < 7.0 ACTION SUGGESTED > 7.0 Performed By: #### A 1C #### [facility] [address] [address] [address] Shakira Bahena Glucose [Mass/Vol] 120 mg/dL Normal [facility] Comment on above: Performed By: #### A 1C #### [facility] [address] [address] [address] Shakira Bahena HbA1c (Bld) [Mass fraction] 5.8 % Normal 4.5-6.2 [facility] Comment on above: Performed By: #### A 1C #### [facility] [address] [place] [address] Dr. Shakria Bahena LIPID PROFILEon 12-16-2021 CHOL-HDL RATIO NORM SEE BELOW Normal [facility] Comment on above: Result Comment: 3.3 - 4.4 LOW RISK 4.4 - 7.1 AVERAGE RISK 7.1 - 11.0 MODERATE RISK >11.0 HIGH RISK Performed By: #### P T, PTT #### [facility] [address] [place] [address] Dr. Shakira Bahena Cholesterol [Mass/Vol] 149 mg/dL Normal <=200 [facility] Comment on above: Performed By: #### P T, PTT #### [facility] [address] [address] [address] Shakira Bahena Cholesterol in HDL [Mass/Vol] 28 mg/dL Critically low 40-60 [facility] Comment on above: Performed By: #### P T, PTT #### [facility] [address] [address] [address] Shakira Bahena Cholesterol in LDL [Mass/Vol] 80.6 mg/dL Normal [facility] Comment on above: Performed By: #### P T, PTT #### [facility] [address] [place] [address] Dr. Shakira Bahena Cholesterol.total/Chol esterol in HDL [Mass ratio] 5.3 {ratio} Normal [facility] Comment on above: Performed By: #### P T, PTT #### [facility] [address] [address] [address] Shakira Bahena HDL NORMAL > or = 60 mg/dl - LO W CARDIOVASCULAR RISK <40 mg/dl - HIGH CARDIOVASCULAR RISK Normal [facility] Comment on above: Performed By: #### P T, PTT #### [facility] [address] [address] [address] Shakira Bahena LDL CALC NORMAL SEE BELOW Normal [facility] Comment on above: Result Comment: <100 mg/dl OPTIMAL 100 - 129 mg/dl NEAR OR ABOVE OPTIMAL 130 - 159 mg/dl BORDERLINE HIGH 160 - 189 mg/dl HIGH >190 mg/dl VERY HIGH Performed By: #### P T, PTT #### [facility] [address] [address] [address] Shakira Bahena Triglyceride [Mass/Vol] 202 mg/dL Critically high <=150 [facility] Comment on above: Performed By: #### P T, PTT #### [facility] [address] [address] [address] Shakira Bahena VLDL CALC 40.4 mg/dL Normal [facility] Comment on above: Performed By: #### P T, PTT #### [facility] [address] [place] [address] Dr. Shakira Bahena MICROALBUMIN, RAND URon 12-02 mALB <1.3 Normal <=30.0 [facility] Comment on above: Performed By: #### P T, PTT #### [facility] [address] [place] [address] Dr. Shakira Bahena PROF 14(COMP METB)on 022 Albumin [Mass/Vol] 3.5 g/dL Normal 3.4-5.0 [facility] Comment on above: Performed By: #### P T, PTT #### [facility] [address] [place] [address] Dr. Shakira Bahena Albumin/Globulin [Mass ratio] 1.0 {ratio} Normal [facility] Comment on above: Performed By: #### P T, PTT #### [facility] [address] [place] [address] Dr. Shakira Bahena ALP [Catalytic activity/Vol] 103 U/L Normal 46-116 [facility] Comment on above: Performed By: #### P T, PTT #### [facility] [address] [address] [address] Shakira Bahena ALT [Catalytic activity/Vol] 19 U/L Normal 14-59 [facility] Comment on above: Performed By: #### P T, PTT #### [facility] [address] [address] [address] Shakira Bahena Anion gap [Moles/Vol] 14.8 mmol/L Normal [facility] Comment on above: Performed By: #### P T, PTT #### [facility] [address] [place] [address] Dr. Shakira Bahena AST [Catalytic activity/Vol] 10 U/L Critically low 15-37 [facility] Comment on above: Performed By: #### P T, PTT #### [facility] [address] [address] [address] Shakira Bahena Bilirubin [Mass/Vol] 0.3 mg/dL Normal 0.2-1.0 [facility] Comment on above: Performed By: #### P T, PTT #### [facility] [address] [address] [address] Shakira Bahena Calcium [Mass/Vol] 8.6 mg/dL Normal 8.5-10.1 [facility] Comment on above: Performed By: #### P T, PTT #### [facility] [address] [address] [address] Shakira Bahena Chloride [Moles/Vol] 107 mmol/L Normal 98-107 [facility] Comment on above: Performed By: #### P T, PTT #### [facility] [address] [address] [address] Shakira Bahena CO2 [Moles/Vol] 23.1 mmol/L Normal 21.0-32.0 [facility] [place] [facility] Comment on above: Performed By: #### P T, PTT #### [facility] [address] [address] [address] Shakira Bahena Creatinine [Mass/Vol] 0.79 mg/dL Normal 0.55-1.02 [facility] Comment on above: Performed By: #### P T, PTT #### [facility] [address] [address] [address] Shakira Bahena EGFR-AF KENYAN >60 Normal >=60 [facility] [place] [facility] Comment on above: Performed By: #### P T, PTT #### [facility] [address] [address] [address] Shakira Bahena EGFR-NON AF KENYAN >60 Normal >=60 [facility] Comment on above: Performed By: #### P T, PTT #### [facility] [address] [place] [address] Dr. Shakira Bahena Globulin (S) [Mass/Vol] 3.4 g/dL Normal [facility] Comment on above: Performed By: #### P T, PTT #### [facility] [address] [place] [address] Dr. Shakira Bahena Glucose [Mass/Vol] 157 mg/dL Critically high 74-106 [facility] Comment on above: Performed By: #### P T, PTT #### [facility] [address] [place] [address] Dr. Shakira Bahena Potassium [Moles/Vol] 3.9 mmol/L Normal 3.5-5.1 [facility] Comment on above: Performed By: #### P T, PTT #### [facility] [address] [place] [address] Dr. Shakira Bahena Protein [Mass/Vol] 6.9 g/dL Normal 6.4-8.[address] [facility] Comment on above: Performed By: #### P T, PTT #### [facility] [address] [place] [address] Dr. Shakira Bahena Sodium [Moles/Vol] 141 mmol/L Normal 136-[address] [facility] Comment on above: Performed By: #### P T, PTT #### [facility] [address] [place] [address] Dr. Shakira Bahena Urea nitrogen [Mass/Vol] 13.0 mg/dL Normal 7.0-18.0 [facility] Comment on above: Performed By: #### P T, PTT #### [facility] [address] [place] [address] Dr. Shakira Bahena Urea nitrogen/Creatinine [Mass ratio] 16.5 mg/mg Normal [facility] Comment on above: Performed By: #### P T, PTT #### [facility] [address] [place] [address] Dr. Shakira Bahena UA RANDOM W/MICROSCOPICon BACTERIA NONE SEEN Normal NONE SEEN [facility] Comment on above: Performed By: #### P T, PTT #### [facility] [address] [place] [address] Dr. Shakira Bahena Bilirubin Ql (U) Negative Normal NEGATIVE [facility] Comment on above: Performed By: #### P T, PTT #### [facility] [address] [place] [address] Dr. Shakira Bahena CAST NONE SEEN Normal NONE SEEN [facility] Comment on above: Performed By: #### P T, PTT #### [facility] [address] [place] [address] Dr. Shakira Bahena Clarity (U) CLEAR Normal CLEAR [facility] Comment on above: Performed By: #### P T, PTT #### [facility] [address] [place] [address] Dr. Shakira Bahena Color (U) LT. YELLOW Normal YELLOW [facility] Comment on above: Performed By: #### P T, PTT #### [facility] [address] [place] [address] Dr. Shakira Bahena Crystals LM Nom (Urine sed) NONE SEEN Normal NONE SEEN [facility] Comment on above: Performed By: #### P T, PTT #### [facility] [address] [place] [address] Dr. Shakira Bahena Epithelial cells LM Ql (Urine sed) RARE Normal NONE SEEN /RARE [facility] Comment on above: Performed By: #### P T, PTT #### [facility] [address] [place] [address] Dr. Shakira Bahena Glucose Ql (U) 100 mg/dl Abnormal NEGATIVE [facility] Comment on above: Performed By: #### P T, PTT #### [facility] [address] [address] [address] Shakira Bahena Hemoglobin Ql (U) Negative Normal NEGATIVE [facility] Comment on above: Performed By: #### P T, PTT #### [facility] [address] [address] [address] Shakira Bahena Ketones Ql (U) Negative Normal NEGATIVE [facility] Comment on above: Performed By: #### P T, PTT #### [facility] [address] [address] [address] Shakira Bahena LEUKOCYTES Negative Normal NEGATIVE [facility] Comment on above: Performed By: #### P T, PTT #### [facility] [address] [place] [address] Dr. Shakira Bahena MUCOUS NONE SEEN Normal NONE SEEN [facility] Comment on above: Performed By: #### P T, PTT #### [facility] [address] [place] [address] Dr. Shakira Bahena Nitrite Ql (U) Negative Normal NEGATIVE [facility] Comment on above: Performed By: #### P T, PTT #### [facility] [address] [place] [address] Dr. Shakira Bahena pH (U) 6.0 [pH] Normal 5-9 [facility] Comment on above: Performed By: #### P T, PTT #### [facility] [address] [place] [address] Dr. Shakira Bahena RBC 0-2 Normal 0-2 [facility] Comment on above: Performed By: #### P T, PTT #### [facility] [address] [place] [address] Dr. Shakira Bahena SPEC GRAVITY 1.010 Normal 1.005-<=1.02 5 [facility] Comment on above: Performed By: #### P T, PTT #### [facility] [address] [place] [address] Dr. Shakira Bahena UA PROTEIN Negative Normal NEGATIVE/ TRACE [facility] Comment on above: Performed By: #### P T, PTT #### [facility] [address] [place] [address] [address] [address] Shakira Bahena Urobilinogen Qn (U) 0.2 {Navin'U}/dL Normal 0.2 - 1. 0 [facility] Comment on above: Performed By: #### P T, PTT #### [facility] [address] [place], [place] [id number] Dr. Shakira Bahena WBC NONE SEEN Normal NONE SEEN [facility] Comment on above: Performed By: #### P T, PTT #### [facility] [address] [place], [place] [id number] Dr. Shakira Bahena LUMBAR SPINE 4 OR 5 Son LUMBAR SPINE 4 OR 5 S [facility] Department of Radiology [address] [place] [id number] ======== Patient Name: ESMER BEACH : 1970 Sex: F Age: Race: White Pt. Location: Patient Status: D Ordered Date: 01/18/2020 1:45:00 PM Completed Date: 01/18/2020 02:04 PM Requesting Provider: RICARDO JOSEPH Attending Provider: RICARDO JOSEPH Report Copy To: Signs & Symptoms: M48.061 Spinal stenosis, lumbar region without neurogenic ignacio I10 History: [place] Comments: Views (X-RAY, LUMBAR SPINE): AP, Lateral, [...] subluxation Electronically signed: Alma Lopez. Transcribed by: [email or web address], User Resident: Electronically Signed by: HUI MEAD @ 01/30/2020 11:27 AM Normal [facility] Comment on above: Order Comment: Views (X-RAY, LUMBAR SPINE): AP, Lateral, L5-S1 Spot, Flexion, Extension , Weight Bearing?: Y Remote CBCDIF (for [facility] use o nly)on 01-03-2019 Abs Baso 0.05 k/uL Normal 0.00-0.10 [facility] Abs [place] 0.90 k/uL High 0.00-0.86 [facility] Abs Neut 12.73 k/uL High 1.45-7.50 [facility] Basophils/100 WBC (Bld) 0.3 % Normal [facility] Eosinophils (Bld) [#/Vol] 0.27 10*3/uL Normal 0.00-0.45 [facility] Eosinophils/100 WBC (Bld) 1.5 % Normal [facility] Erythrocyte distribution width (RBC) [Ratio] 15.0 % Normal 11.5-15.0 [facility] Hematocrit (Bld) [Volume fraction] 46.9 % High 36.0-46.0 [facility] Hemoglobin (Bld) [Mass/Vol] 16.1 g/dL High 11.5-15.5 [facility] Lymphocytes (Bld) [#/Vol] 3.51 10*3/uL Normal 1.00-4.00 [facility] Lymphocytes/100 WBC (Bld) 20.1 % Normal [facility] MCH (RBC) [Entitic mass] 30.0 pG Normal 26.0-34.0 [facility] MCHC (RBC) [Mass/Vol] 34.3 g/dL Normal 30.5-36.0 [facility] MCV (RBC) [Entitic vol] 87.3 fL Normal 80.0-100.0 [facility] Monocytes/100 WBC (Bld) 5.2 % Normal [facility] Neutrophils/100 WBC (Bld) 72.9 % Normal [facility] Platelet mean volume (Bld) [Entitic vol] 9.4 fL Normal 9.0-12.7 [facility] Platelets (Bld) [#/Vol] 308 10*3/uL Normal 150-400 [facility] RBC (Bld) [#/Vol] 5.37 10*6/uL High 3.90-5.20 [facility] WBC (Bld) [#/Vol] 17.46 10*3/uL High 3.70-11.00 [facility] CNOVSPon 07-13-2018 CNOVSP Visit (SP) Office ([facility]) ESMER BEACH ([id number]) 1970 F Date Time Provider Department 07/13/18 2:45 PM VANESSA ESPINOSA HEMMARIE During your visit today, [...] Espinosa MD Referring Provider: LACY ALBERTO ([facility]) [[id number]] Allergies As of Date: 07/13/2018 Noted Allergy [...] (FOR REMOTE [facility] USE) [SQRCBCDF] Order #: [id number] STANDING Follow-up and Disposition History Recorded Prescriptions [...] [D72.829] INVALID FOR* Coronary artery disease involving belkofski heart *INVALID FOR* Diabetes mellitus (HCC) [E11.9] INVALID FOR* Psychiatric disorder [F99] INVALID FOR* Encounter Status:Closed by VANESSA ESPINOSA MD on 07/13/18 Normal [facility] PROGRESSon 07-13-2018 PROGRESS HNO ID: [id number] Author: Vanessa Espinosa Service: (none) Author Type: [...] year - CBC + DIFF (FOR REMOTE [facility] USE) Vanessa Espinosa MD Normal [facility] Remote CBCDIF (for [facility] use o nly)on 07-13-2018 Abs Baso 0.04 k/uL Normal 0.00-0.10 [facility] Abs [place] 0.82 k/uL Normal 0.00-0.86 [facility] Abs Neut 14.68 k/uL High 1.45-7.50 [facility] Basophils/100 WBC (Bld) 0.2 % Normal [facility] Eosinophils (Bld) [#/Vol] 0.15 10*3/uL Normal 0.00-0.45 [facility] Eosinophils/100 WBC (Bld) 0.8 % Normal [facility] Erythrocyte distribution width (RBC) [Ratio] 14.5 % Normal 11.5-15.0 [facility] Hematocrit (Bld) [Volume fraction] 47.2 % High 36.0-46.0 [facility] Hemoglobin (Bld) [Mass/Vol] 15.8 g/dL High 11.5-15.5 [facility] Lymphocytes (Bld) [#/Vol] 3.48 10*3/uL Normal 1.00-4.00 [facility] Lymphocytes/100 WBC (Bld) 18.2 % Normal [facility] MCH (RBC) [Entitic mass] 29.4 pG Normal 26.0-34.0 [facility] MCHC (RBC) [Mass/Vol] 33.5 g/dL Normal 30.5-36.0 [facility] MCV (RBC) [Entitic vol] 87.9 fL Normal 80.0-100.0 [facility] Monocytes/100 WBC (Bld) 4.3 % Normal [facility] Neutrophils/100 WBC (Bld) 76.5 % Normal [facility] Platelet mean volume (Bld) [Entitic vol] 9.3 fL Normal 9.0-12.7 [facility] Platelets (Bld) [#/Vol] 274 10*3/uL Normal 150-400 [facility] RBC (Bld) [#/Vol] 5.37 10*6/uL High 3.90-5.20 [facility] WBC (Bld) [#/Vol] 19.17 10*3/uL High 3.70-11.00 [facility] BCR-ABL Qualitativeon 2017 BCR-ABL Qualitative (NOTE) Normal [facility] Comment on above: Result Comment: Plea se refer to [facility] Surgical Pathology report, Performed By: #### C ALR, BCRQL #### [facility] [address] [place], [place] [address] Basic Metabolic Panlon 06-15 Anion gap [Moles/Vol] 12 mmol/L Normal 9-18 [facility] Comment on above: Performed By: #### Rosemarie AK2, BMP, HFP, WSR #### [facility] [address], [place] [address] Calcium [Mass/Vol] 9.4 mg/dL Normal 8.5-10.2 [facility] Comment on above: Performed By: #### Rosemarie AK2, BMP, HFP, WSR #### [facility] [address], [place] [address] Chloride [Moles/Vol] 108 mmol/L High 97-105 [facility] Comment on above: Performed By: #### Rosemarie AK2, BMP, HFP, WSR #### [facility], [place] [address] CO2 [Moles/Vol] 21 mmol/L Low 22-30 [facility] Comment on above: Performed By: #### Rosemarie AK2, BMP, HFP, WSR #### [facility] [address], [place] [address] Creatinine [Mass/Vol] 0.65 mg/dL Normal 0.58-0.96 [facility] Comment on above: Performed By: #### Rosemarie AK2, BMP, HFP, WSR #### [facility] [address] [id number] eGFR- Amer. >60 Normal [facility] Comment on above: Performed By: #### YONI RUIZ HFP, WSR #### [facility] [address] [address] GFR/1.73 sq M predicted among non-blacks MDRD (S/P/Bld) [Vol rate/Area] mL/min/{1.73_m2} Normal [facility] Comment on above: Result Comment: eGFR (Estimated [...] By: #### YONI RUIZ HFP, WSR #### [facility] [address] [id number] Glucose [Mass/Vol] 187 mg/dL High 74-99 [facility] Comment on above: Result Comment: The [employer] (ADA) provides guidance for cutoff [...] Standards of Medical Care in Diabetes 2016, [employer]. Diabetes Care. 2016.39(Suppl 1). Performed By: #### YONI RUIZ, MEDARDO, WSR #### [facility] [address] [place], [place] [address] Potassium [Moles/Vol] 4.7 mmol/L Normal 3.7-5.1 [facility] Comment on above: Performed By: #### Rosemarie AK2, BMP, HFP, WSR #### [facility] [address] [place], [place] [phone] Sodium [Moles/Vol] 141 mmol/L Normal 136-144 [facility] Comment on above: Performed By: #### Rosemarie AK2, BMP, HFP, WSR #### [facility] [address] [place], [place] [address] Urea nitrogen [Mass/Vol] 14 mg/dL Normal 7-21 [facility] Comment on above: Performed By: #### Rosemarie AKMaria Victoria, BMP, HFP, WSR #### [id number] [place], [place] [address] CALR Exon 9 Mutationon 06-15 CALR Result/Interp Duplicate request Normal [facility] Comment on above: Result Comment: Acco unt Credited SEE RESULT FOR MPNP. 2017 Performed By: #### Elma WHEELER, BCRQL #### [id number] [id number] CALR Reviewed by Duplicate request Normal [facility] Comment on above: Result Comment: Acco unt Credited SEE RESULT FOR MPNP. 2017 Performed By: #### Elma WHEELER, BCRQL #### [facility] [address] [place], [place] [address] CALR Specimen Type Duplicate request Normal [facility] Comment on above: Result Comment: Acco unt Credited SEE RESULT FOR MPNP. 2017 Performed By: #### Elma WHEELER, BCRQL #### [facility] [address] [place], [place] [address] CNOVSPon 06-15-2018 CNOVSP Visit (SP) Office (HEMAC[facility]) ESMER BE[place] ([id number]) 1970 F Date Time Provider Department 06/15/18 [...] ABS GRAN CT + CBC (FOR REMOTE [facility] USE) - BASIC METABOLIC PNL - HEPATIC FUNCTION PNL - SED RATE WESTERGREN - BCR-ABL QUALITATIVE MULTIPLEX RT-PCR - JAK2 [id number] MUTATION BLOOD - MPL MUTATION ANALYSIS BLOOD - CALR EXON 9 MUTATION ANALYSIS BLOOD 2. 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, unspecified vessel or lesion type (HCC) [I25.118] Other specified diabetes mellitus without complication, with long-term current use of insulin (HCC) [E13.9, Z79.4] Psychiatric disorder [F99] Order(s):ABS GRAN CT + CBC (FOR REMOTE [facility] USE) [SQRAGCBC] Order #: [id number] FUTURE BASIC METABOLIC PNL [SQBMP] Order #: [id number] FUTURE HEPATIC FUNCTION PNL [SQHFP] Order #: [id number] FUTURE SED RATE WESTERGREN [SQWSR] Order #: [id number] FUTURE BCR-ABL QUALITATIVE MULTIPLEX RT-PCR [SQBCRQL] Order #: [id number] FUTURE JAK2 V617F MUTATION BLOOD [SQJAK2] Order #: [id number] FUTURE MPL MUTATION ANALYSIS BLOOD [SQMPL] Order #: [id number] FUTURE CALR EXON 9 MUTATION ANALYSIS BLOOD [SQCALR] Order #: [id number] FUTURE Disposition: Return in about 4 weeks [...] [D72.829] INVALID FOR* Coronary artery disease involving belkofski heart *INVALID FOR* Diabetes mellitus (HCC) [E11.9] INVALID FOR* Psychiatric disorder [F99] INVALID FOR* Encounter Status:Closed by VANESSA ESPINOSA MD on 06/15/18 Normal [facility] Hepatic Functn Panelon 06-15 Albumin [Mass/Vol] 4.2 g/dL Normal 3.9-4.9 [facility] Comment on above: Performed By: #### Rosemarie AKYONI Irene, HFP, WSR #### [facility] [address] [address] ALP [Catalytic activity/Vol] 99 U/L Normal 34-123 [facility] Comment on above: Performed By: #### Rosemarie AKYONI Irene, HFP, WSR #### [address] [id number] [address] ALT [Catalytic activity/Vol] 18 U/L Normal 7-38 [facility] Comment on above: Performed By: #### Rosemarie AKMaria Victoria, YONI, HFP, WSR #### [facility] [address] [address] AST [Catalytic activity/Vol] 19 U/L Normal 13-35 [facility] Comment on above: Performed By: #### Rosemarie AKMaria Victoria, YONI, HFP, WSR #### [facility] [address] [id number] Bilirubin [Mass/Vol] mg/dL Low 0.2-1.3 [facility] Comment on above: Performed By: #### Rosemarie AKMaria Victoria, YONI, HFP, WSR #### [facility] [address] [address] Bilirubin,Conjugated <0.2 Normal <0.2 [facility] Comment on above: Performed By: #### Rosemarie JOHNSON, BMP, HFP, WSR #### [facility] [address] [address] Protein [Mass/Vol] 7.1 g/dL Normal 6.3-8.0 [facility] Comment on above: Performed By: #### Rosemarie AKMaria Victoria, BMP, HFP, WSR #### [facility] [address] [address] JAK2 V617F Mutationon 2017 JAK2 V617F Interp Duplicate request Normal [facility] Comment on above: Result Comment: Acco unt Credited SEE RESULT FOR MPNP. 2017 Performed By: #### Rosemarie JOHNSON, YONI, HFP, WSR #### [facility] [address] [address] JAK2 V617F Spec Type Duplicate request Normal [facility] Comment on above: Result Comment: Acco unt Credited SEE RESULT FOR MPNP. 2017 Performed By: #### Rosemarie AKMaria Victoria, BMP, HFP, WSR #### [facility] [address] [address] Molecular Path Rev Duplicate request Normal [facility] Comment on above: Result Comment: Acco unt Credited SEE RESULT FOR MPNP. 2017 Performed By: #### Rosemarie AKMaria Victoria, BMP, HFP, WSR #### [facility] [address] [address] MPL Mutationon 06-15-2018 MPL Mutation Interp Duplicate request Normal [facility] Comment on above: Result Comment: Acco unt Credited SEE RESULT FOR MPNP. 2017 Performed By: #### M PL #### [facility] [address] [address] Myeloprolif Neopl Pnl Bloodo n 06-15-2018 Myelo Neopl Pnl Bld (NOTE) Normal [facility] Comment on above: Result Comment: Balta henry refer to [facility] Surgical Pathology report, . Performed By: #### M PNP ####[facility] [address] [place], [place] [id number] PROGRESSon 06-15-2018 PROGRESS HNO ID: [id number] Author: Vanessa Espinosa Service: (none) Author Type: [...] ABS GRAN CT + CBC (FOR REMOTE [facility]LY [facility] USE) - BASIC METABOLIC PNL - HEPATIC FUNCTION PNL - SED RATE WESTERGREN - BCR-ABL QUALITATIVE MULTIPLEX RT-PCR - JAK2 V617F MUTATION BLOOD - MPL MUTATION ANALYSIS BLOOD - CALR EXON 9 MUTATION ANALYSIS BLOOD 2. 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, [...] ABS GRAN CT + CBC (FOR REMOTE [facility] USE) - BASIC METABOLIC PNL - [...] F99 See above Vanessa Espinosa MD Normal [facility] Remote Abs Gran + CBC (for [facility] use only)on 06-15-2018 Absol Gran Count 12.48 k/uL High 1.45-7.50 [facility] Erythrocyte distribution width (RBC) [Ratio] 14.7 % Normal 11.5-15.0 [facility] Hematocrit (Bld) [Volume fraction] 46.8 % High 36.0-46.0 [facility] Hemoglobin (Bld) [Mass/Vol] 15.4 g/dL Normal 11.5-15.5 [facility] MCH (RBC) [Entitic mass] 29.2 pG Normal 26.0-34.0 [facility] MCHC (RBC) [Mass/Vol] 32.9 g/dL Normal 30.5-36.0 [facility] MCV (RBC) [Entitic vol] 88.8 fL Normal 80.0-100.0 [facility] Platelet mean volume (Bld) [Entitic vol] 9.1 fL Normal 9.0-12.7 [facility] Platelets (Bld) [#/Vol] 279 10*3/uL Normal 150-400 [facility] RBC (Bld) [#/Vol] 5.27 10*6/uL High 3.90-5.20 [facility] WBC (Bld) [#/Vol] 17.10 10*3/uL High 3.70-11.00 [facility] SURGICAL PATHOLOGYon 018 SURGICAL PATHOLOGY PROCEDURE REPORT Specimen originated from [facility] Specimen #: [id number] Submitting Physician: VANESSA ESPINOSA MD SPECIMEN SUBMITTED [...] this sample, and cDNA prepared by reverse statuary painter. Multiplex RT-PCR studies were performed using fluorescently [...] developed and its performance characteristics determined by [facility]'s [facility] [place] ([facility]). It has not been cleared or approved by the FDA. [facility] is regulated under CLIA as qualified to [...] sequencing was performed on the Illumina instrument ([place], [place]). A customized bioinformatic pipeline was used to align the sequencing reads to the reference human genome (GRCh37/hg19). Benign common polymorphisms are not reported. Limitations: Sequence changes outside the analyzed regions, including intronic, noncoding, and splice-site variants, will not be identified by this test. The lower limit of detection of this assay is approximately 1% allele proportion for the JAK2 [id number] single nucleotide variant and approximately 5% allele [...] developed and its performance characteristics determined by [facility]'s [facility] [place] ([facility]). It has not been cleared or approved by the FDA. [facility] is regulated under CLIA as qualified to perform high-complexity testing. This test is used for clinical purposes. It should not be regarded as investigational or for research. As Reviewed by: Nahomy Galarza M.D. [facility]/ny 06/22/18 References: Mark DA, Lux A, Raúl [...] Receipt: 06/16/2018 Submitted: VANESSA ESPINOSA MD Location: [facility] Diagnostic interpretation performed at [facility], [address] [place] [address]. Normal [facility] Sed Rate Westergrenon 2017 Sed Rate Westergren 2 mm/hr Normal 0-20 [facility] Comment on above: Performed By: #### J AK2, BMP, HFP, WSR #### [facility] [address] [place], [place] [address] Vital Signs Date Time Vital Sign Value Performing Clinician Facility 01-07-2025 13:25-0400 Body mass index (BMI) [Ratio] 31.78 kg/m2 Lacy Alberto DRESSMAKING TEACHER Work Phone: [facility] 01-07-2025 13:25-0400 Body temperature 98.49 [degF] Lacy Alberto DRESSMAKING TEACHER Work Phone: [facility] 01-07-2025 13:25-0400 Body weight 81.38 kg Lacy Alberto DRESSMAKING TEACHER Work Phone: [facility] 01-07-2025 13:25-0400 Diastolic blood pressure 80 mm[Hg] Lacy Alberto DRESSMAKING TEACHER Work Phone: [facility] 01-07-2025 13:25-0400 Heart rate 84 /min Lacy Alberto DRESSMAKING TEACHER Work Phone: [facility] 01-07-2025 13:25-0400 Respiratory rate 20 /min Lacy Remy DRESSMAKING TEACHER Work Phone: [facility] 01-07-2025 13:25-0400 SaO2% (BldA) [Mass fraction] 98 % Lacy Alberto DRESSMAKING TEACHER Work Phone: [facility] 01-07-2025 13:25-0400 Systolic blood pressure 142 mm[Hg] Lacy Alberto DRESSMAKING TEACHER Work Phone: [facility] 10-18-2024 10:09-0400 Body height 160 cm Alicia Henry MD Work Phone: [facility] 10-18-2024 10:09-0400 Body mass index (BMI) [Ratio] 33.98 kg/m2 Alicia Henry MD Work Phone: [facility] 10-18-2024 10:09-0400 Body weight 87 kg Alicia Henry MD Work Phone: [facility] 10-18-2024 10:09-0400 Diastolic blood pressure 78 mm[Hg] Alicia Henry MD Work Phone: [facility] 10-18-2024 10:09-0400 Heart rate 100 /min Alicia Henry MD Work Phone: [facility] 10-18-2024 10:09-0400 SaO2% (BldA) [Mass fraction] 94 % Alicia Henry MD Work Phone: [facility] 10-18-2024 10:09-0400 Systolic blood pressure 124 mm[Hg] Alicia Henry MD Work Phone: [facility] 10-08-2024 13:06-0400 Body mass index (BMI) [Ratio] 33.83 kg/m2 Lacy Remy DRESSMAKING TEACHER Work Phone: [facility] 10-08-2024 13:06-0400 Body temperature 98.1 [degF] Lacy Juniorhsylvesterz DRESSMAKING TEACHER Work Phone: [facility] 10-08-2024 13:06-0400 Body weight 86.64 kg Lacy Aichholz DRESSMAKING TEACHER Work Phone: [facility] 10-08-2024 13:06-0400 Diastolic blood pressure 78 mm[Hg] Lacy Aichsylvesterz DRESSMAKING TEACHER Work Phone: [facility] 10-08-2024 13:06-0400 Heart rate 89 /min Lacy Aichholz DRESSMAKING TEACHER Work Phone: [facility] 10-08-2024 13:06-0400 Respiratory rate 20 /min Lacy Aichholz DRESSMAKING TEACHER Work Phone: [facility] 10-08-2024 13:06-0400 SaO2% (BldA) [Mass fraction] 95 % Lacy Aichholz DRESSMAKING TEACHER Work Phone: [facility] 10-08-2024 13:06-0400 Systolic blood pressure 118 mm[Hg] Lacy Denisholz DRESSMAKING TEACHER Work Phone: [facility] 08-06-2024 15:11-0500 Body height 160 cm Lacy Juniorhholz DRESSMAKING TEACHER Work Phone: [facility] 08-06-2024 15:11-0500 Body mass index (BMI) [Ratio] 33.44 kg/m2 Lacy Aichholz DRESSMAKING TEACHER Work Phone: [facility] 08-06-2024 15:11-0500 Body temperature 97.59 [degF] Lacy Juniorhholz DRESSMAKING TEACHER Work Phone: [facility] 08-06-2024 15:11-0500 Body weight 85.64 kg Lacy Juniorhholz DRESSMAKING TEACHER Work Phone: [facility] 08-06-2024 15:11-0500 Diastolic blood pressure 86 mm[Hg] Lacy Juniorhholz DRESSMAKING TEACHER Work Phone: [facility] 08-06-2024 15:11-0500 Heart rate 107 /min Lacy Juniorhholz DRESSMAKING TEACHER Work Phone: [facility] 08-06-2024 15:11-0500 Respiratory rate 20 /min Lacy Aichholz DRESSMAKING TEACHER Work Phone: [facility] 08-06-2024 15:11-0500 SaO2% (BldA) [Mass fraction] 96 % Lacy Juniorhholz DRESSMAKING TEACHER Work Phone: [facility] 08-06-2024 15:11-0500 Systolic blood pressure 142 mm[Hg] Lacy Juniorhholz DRESSMAKING TEACHER Work Phone: [facility] 05-22-2024 09:00-0500 Body height 160 cm Lacy Aichholz DRESSMAKING TEACHER Work Phone: [facility] 05-22-2024 09:00-0500 Body mass index (BMI) [Ratio] 34.33 kg/m2 Lacy Aichholz DRESSMAKING TEACHER Work Phone: [facility] 05-22-2024 09:00-0500 Body temperature 98.49 [degF] Lacy Aichholz DRESSMAKING TEACHER Work Phone: [facility] 05-22-2024 09:00-0500 Body weight 87.91 kg Lacy Aichholz DRESSMAKING TEACHER Work Phone: [facility] 05-22-2024 09:00-0500 Diastolic blood pressure 78 mm[Hg] Lacy Aichholz DRESSMAKING TEACHER Work Phone: [facility] 05-22-2024 09:00-0500 Heart rate 70 /min Lacy Aichholz DRESSMAKING TEACHER Work Phone: [facility] 05-22-2024 09:00-0500 Respiratory rate 19 /min Lacy Aichholz DRESSMAKING TEACHER Work Phone: [facility] 05-22-2024 09:00-0500 SaO2% (BldA) [Mass fraction] 97 % Lacy Aichholz DRESSMAKING TEACHER Work Phone: [facility] 05-22-2024 09:00-0500 Systolic blood pressure 110 mm[Hg] Lacy Aichholz DRESSMAKING TEACHER Work Phone: [facility] Healthcare Encounters Encounter Date Encounter Type Care Provider Facility Start: 03-26-2025 End: 03-26-2025 ambulatory Cade Hicks Facility:[facility] Start: 03-20-2025 End: 03-20-2025 ambulatory Obdulio Rose MD Facility:[facility] Start: 02-25-2025 End: 02-25-2025 Refill Lacy Aichholz DRESSMAKING TEACHER Work Phone: [facility] Comment on above: Type 2 diabetes josselin itus without complication, without long- term current use of insulin (HCC) (Primary Dx) Start: 02-20-2025 End: 02-21-2025 Telephone encounter Anne Velasquez RN [facility] Comment on above: Surgical Or Dental C learance Start: 01-07-2025 End: 01-07-2025 Bamboo flowsheet Lacy Aichholz DRESSMAKING TEACHER Work Phone: [facility] Start: 01-07-2025 End: 01-07-2025 Bamboo flowsheet Lacy Alberto DRESSMAKING TEACHER Work Phone: [facility] Start: 01-07-2025 End: 01-07-2025 ambulatory LACY REMY Not Available Start: 01-07-2025 End: 01-07-2025 Office outpatient visit 25 minutes Lacy Alberto DRESSMAKING TEACHER Work Phone: [facility] Comment on above: Type 2 [...] Start: 12-07-2024 End: 12-07-2024 Refill Lacy Alberto DRESSMAKING TEACHER Work Phone: [facility] Comment on above: Type 2 diabetes josselin itus without complication, without long- term current use of insulin Start: 10-30-2024 End: 10-30-2024 Telephone encounter Chace Leary RN [facility] Comment on above: Cardiac Clearance Start: 10-29-2024 End: 10-29-2024 ambulatory [facility] Start: 10-29-2024 End: 10-29-2024 ambulatory [facility] Start: 10-29-2024 End: 10-29-2024 ambulatory [facility] Start: 10-19-2024 End: 10-19-2024 Clinisync Result Encounter Generic External Data Provider [facility] External Department Unsolicited Start: 10-19-2024 End: 10-19-2024 Clinisync Result Encounter Generic External Data Provider [facility] External Department Unsolicited Start: 10-18-2024 End: 10-18-2024 Office outpatient new 45 minutes Alicia Henry MD Work Phone: [facility] Comment on above: Pre-op testing (Prim maria ines Dx); Coronary artery disease involving belkofski coronary artery of belkofski heart without angina pectoris; Dyspnea, unspecified type Start: 10-18-2024 End: 10-18-2024 Patient encounter status Alicia Henry MD Work Phone: [facility] Start: 10-18-2024 End: 10-18-2024 ambulatory [facility] Start: 10-18-2024 Encounter for other preprocedural examination [facility] Start: 10-17-2024 End: 10-17-2024 Telephone encounter Dee Yu CMA [facility] Start: 10-08-2024 End: 10-08-2024 Bamboo flowsheet Lacy Alberto DRESSMAKING TEACHER Work Phone: [facility] Start: 10-08-2024 End: 10-08-2024 Bamboo flowsheet Lacy Alberto DRESSMAKING TEACHER Work Phone: [facility] Start: 10-08-2024 End: 10-08-2024 ambulatory LACY REMY Not Available Start: 10-08-2024 End: 10-08-2024 Office outpatient visit 25 minutes Lacy Alberto DRESSMAKING TEACHER Work Phone: [facility] Comment on [...] Department Unsolicited Start: 09-24-2024 End: 09-24-2024 ambulatory Edgardo Menon MD Facility:[facility] Start: 09-10-2024 End: 09-10-2024 ambulatory Edgardo Menon MD Facility:[facility] Start: 08-28-2024 End: 08-28-2024 Refill Lacy Alberto DRESSMAKING TEACHER Work Phone: [facility] Comment on above: URI, acute (Primary Dx) Start: 08-27-2024 End: 08-27-2024 ambulatory Fred Pryor MD Facility:[facility] Start: 08-10-2024 End: 08-10-2024 Clinisync Result Encounter Generic External Data Provider [facility] External Department Unsolicited Start: 08-10-2024 End: 08-10-2024 Clinisync Result Encounter Generic External Data Provider [facility] External Department Unsolicited Start: 08-06-2024 End: 08-06-2024 Office outpatient visit 25 minutes Lacynatanael Alberto DRESSMAKING TEACHER Work Phone: [facility] Comment on above: Type 2 diabetes josselin itus without complication, without long- term current use of insulin (CMS/[facility]) (Primary Dx); Bipolar disorder, current episode mixed, [...] 08-06-2024 End: 08-06-2024 Bamboo flowsheet Lacy Alberto DRESSMAKING TEACHER Work Phone: [facility] Start: 08-06-2024 End: 08-06-2024 Bamboo flowsheet Lacy Alberto DRESSMAKING TEACHER Work Phone: [facility] Start: 07-30-2024 End: 07-30-2024 ambulatory Fred Pryor MD Facility:[facility] Start: 07-23-2024 End: 07-23-2024 Orders Only Lacy Alberto DRESSMAKING TEACHER Work Phone: [facility] Comment on above: 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 (Primary Dx) Start: 06-25-2024 End: 06-25-2024 Telephone encounter Lacy Alberto DRESSMAKING TEACHER Work Phone: [facility] Start: 05-28-2024 End: 05-28-2024 Refill Lacy Alberto DRESSMAKING TEACHER [facility] Comment on above: Type 2 diabetes josselin itus without complication, without long- term current use of insulin (CMS/HCC) (Primary Dx) Start: 05-22-2024 End: 05-22-2024 Bamboo flowsheet Lacy Alberto DRESSMAKING TEACHER Work Phone: [facility] Start: 05-22-2024 End: 05-22-2024 Bamboo flowsheet Lacy Alberto DRESSMAKING TEACHER Work Phone: [facility] Start: 05-22-2024 End: 05-22-2024 Patient encounter procedure Lacy Alberto DRESSMAKING TEACHER Work Phone: [facility] Comment on above: Encounter for subseq [...] Start: 04-30-2024 End: 05-01-2024 Refill Lacy Aichholz DRESSMAKING TEACHER Work Phone: [facility] Comment on above: Type 2 diabetes josselin itus without complication, without long- term current use of insulin ([facility]) Start: 04-05-2024 End: 04-05-2024 Refill Lacy Aichholz DRESSMAKING TEACHER Work Phone: [facility] Comment on above: Type 2 diabetes josselin itus without complication, without long- term current use of insulin ([facility]) Start: 03-23-2024 End: 03-23-2024 Clinisync Result Encounter Lacy Aichholz DRESSMAKING TEACHER Work Phone: [facility] External Department Unsolicited Start: 03-23-2024 End: 03-23-2024 Clinisync Result Encounter Lacy Aichholz DRESSMAKING TEACHER Work Phone: [facility] External Department Unsolicited Start: 03-23-2024 End: 03-23-2024 Refill Lacy Aichholz DRESSMAKING TEACHER Work Phone: [facility] Comment on above: Type 2 diabetes josselin itus without complication, without long- term current use of insulin ([facility]) (Primary Dx) Start: 02-27-2024 End: 02-27-2024 Telephone encounter Lacy Aichholz DRESSMAKING TEACHER Work Phone: [facility] Start: 09-09-2022 End: 09-10-2022 ambulatory AGRICULTURAL LENDER LACY AICHHOLZ Facility:[facility] Start: 08-31-2022 End: 09-01-2022 ambulatory AGRICULTURAL LENDER LACY AICHHOLZ Facility:[facility] Start: 06-07-2022 End: 06-08-2022 ambulatory AGRICULTURAL LENDER LACY AICHHOLZ Facility:[facility] Start: 12-16-2021 End: 12-17-2021 ambulatory AGRICULTURAL LENDER LACY AICHHOLZ Facility:[facility] Procedures Date Procedure Procedure Detail Performing Clinician Start: 01-07-2025 Hemoglobin glycosyla ronna a1c Lacy Aichholz DRESSMAKING TEACHER Work Phone: Start: 10-19-2024 XR CHEST 2V Generic Ex ternal Data Provider Start: 10-19-2024 ALL CBC WITH AUTO DIFF Generic External Data Provider Start: 10-18-2024 Ecg routine ecg w/le ast 12 lds w/i&r Alicia Henry MD Work Phone: Start: 10-08-2024 Mammography Lacy Michael means DRESSMAKING TEACHER Work Phone: Start: 10-05-2024 XR CERVICAL SPINE 5V Ge neric External Data Provider Start: 10-05-2024 XR LUMBAR SPINE MIN 4V Generic External Data Provider Start: 08-10-2024 Mri spinal canal cervical w/o contrast matrl Generic External Data Provider Start: 08-06-2024 Hemoglobin glycosyla ronna a1c Lacy Alberto DRESSMAKING TEACHER Work Phone: Start: 03-23-2024 ALL CBC WITH AUTO DIFF Lacy Alberto DRESSMAKING TEACHER Work Phone: Start: 11-17-2023 Mammography Lacy Michael means DRESSMAKING TEACHER Work Phone: Start: 11-17-2020 H/O: surgery S/P nasal septoplasty J bhavna Yu CMA Plan of Treatment Date Care Activity Detail Author Start: 10-29-2025 Tobacco Screening Tobacco Screening [facility] Start: 10-18-2025 Adult BMI Screening Adult BMI Screen ing [facility] Start: 10-18-2025 Tobacco Screening Tobacco Screening [facility] Start: 10-08-2025 Screening for malign ant neoplasm of breast Mammogram [facility] Start: 10-08-2025 Screening for malign ant neoplasm of colon Colorectal Cancer Screening [facility] Healthcare Comment on above: Postponed from 01/05 (Patient Refused) Start: 06-04-2025 End: 06-04-2025 Patient encounter procedure 06/04/2025 10:00 AM EST Office Visit [facility] [address] [place] [phone] Lacy Alberto NP [address] [phone] [facility] Start: 05-22-2025 Medicare Annual Well ness (AWV) Medicare Annual Wellness (AWV) [facility] Start: 04-23-2025 End: 04-23-2025 Patient encounter procedure 04/23/2025 12:15 PM EDT Office Visit [facility] [address] [place] [phone] Billy Caruso MD [address] [place] [address] Obie Mitchell MD [address] [place] [phone] [facility] Start: 04-09-2025 Hemoglobin A1c measurement Irene betes: Hemoglobin A1C [facility] Start: 04-09-2025 End: 04-09-2025 Patient encounter procedure 04/09/2025 1:00 PM EDT Office Visit [facility] [address] [place] [phone] Lacy Alberto NP [address] [place] [address] [facility] Start: 03-29-2025 End: 03-29-2025 Patient encounter procedure 03/29/2025 12:45 PM EDT Office Visit [facility] [address] [place] [phone] Billy Caruso MD [address] [place] [address] [facility] Start: 03-23-2025 Urine screening for protein Diabetes: Urine Protein Screening [facility] Start: 03-04-2025 Influenza vaccination Influenza Vacc ine [facility] Start: 01-07-2025 End: 03-10-2026 MG Breast - bilateral Screening Bilateral screening mammogram Imaging Routine Encounter for screening mammogram for malignant neoplasm of breast Expected: 01/07/2025 (Approximate), Expires: 03/10/2026 [facility] Work Phone: Comment on above: Expected: 01/07/2025 (Approximate), Expires: 03/10/2026 Start: 01-07-2025 End: 01-07-2025 Patient encounter procedure 01/07/2025 1:20 PM EDT Office Visit [facility] [address] [place] [phone] Lacy Alberto NP [address] [place] [address] [facility] Start: 11-16-2024 Screening for malign ant neoplasm of breast Mammogram [facility] Start: 11-16-2024 Screening for malign ant neoplasm of colon [facility] Start: 11-03-2024 Hemoglobin A1c measurement Irene betes: Hemoglobin A1C [facility] Start: 10-29-2024 End: 10-29-2024 Patient encounter procedure [facility] Start: 10-18-2024 End: 10-18-2025 NM Heart Perfusion W stress and W radionuclide IV Nuc stress Lexiscan Cardiac Services Routine Coronary artery disease involving belkofski coronary artery of belkofski heart without angina pectoris Dyspnea, unspecified type Expected: 10/18/2024, Expires: 10/18/2025 [facility] Work Phone: Comment on above: Expected: 10/18/2024 , Expires: 10/18/2025 Start: 10-18-2024 End: 10-18-2024 Patient encounter procedure 10/18/2024 10:30 AM EDT Office Visit [facility] [address] [place] [phone] Alicia Henry MD [address] [place] [address] [facility] Start: 10-08-2024 End: 10-08-2024 Patient encounter procedure 10/08/2024 1:00 PM EDT Office Visit [facility] [address] [place] [address] Lacy Alberto, DOMINIC [address] [place] [phone] [facility] Start: 08-06-2024 End: 08-06-2024 Patient encounter procedure [facility] Comment on above: Arteriosclerosis of coronary [...] procedure 07/11/2024 2:40 PM EST Office Visit [facility] [address] [place] [address] Lacy Alberto NP [address] [place] [phone] [facility] Start: 06-22-2024 Hemoglobin A1c measurement Irene betes: Hemoglobin A1C [facility] Start: 06-21-2024 End: 06-21-2024 Patient encounter procedure 06/21/2024 10:30 AM EST Office Visit [facility] [address] [place] [address] Lacy Alberto NP [address] [place] [phone] [facility] Start: 05-22-2024 End: 05-22-2025 MR Lumbar spine WO contrast MR lumbar spine wo contrast Imaging Routine Spondylosis of 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 Expected: 05/22/2024 (Approximate), Expires: 05/22/2025 [facility] Work Phone: Comment on above: Expected: 05/22/2024 (Approximate), Expires: 05/22/2025 Start: 05-22-2024 End: 05-22-2024 Patient encounter procedure [facility] Comment on above: BMI 32.0-32.9,adult (Primary Dx); Type 2 diabetes mellitus with diabetic polyneuropathy (CMS/HCC); Angina pectoris, unspecified (CMS/HCC); Chronic obstructive pulmonary disease, unspecified (CMS/HCC); Type 2 diabetes mellitus without complication, without long-term current use of insulin ([facility]/HCC); Arteriosclerosis of coronary artery ([facility]/HCC); Tobacco use; Mixed hyperlipidemia ([facility]/HCC) Start: 03-04-2024 Influenza vaccination Influenz a Vaccine (#1) [facility] Start: 01-21-2023 Adult BMI Screening Adult BMI Screen ing [facility] Start: 12-19-2020 Hemoglobin A1c measurement Irene betes: Hemoglobin A1C [facility] Start: 01-05-2018 Administration of varicella zoster vaccine Zoster (Shingles) Vaccine (1 of 2) [facility] Start: 01-05-1998 Screening for malign ant neoplasm of cervix HPV/Cotest [facility] Start: 01-05-1989 Screening for malign ant neoplasm of cervix Pap Smear [facility] Start: 01-05-1987 DTaP,Tdap and Td Vac cines (1 - Tdap) DTaP,Tdap and Td Vaccines (1 - Tdap) [facility] Start: 01-05-1987 Urine screening for protein Diabetes: Urine Protein Screening [facility] Start: 01-05-1986 Adult BMI Follow Up Plan Adult BMI Follow Up Plan [facility] Start: 1980 Depression Screening Depression Scre ening [facility] Start: 1980 Tobacco Screening Tobacco Screening [facility] Start: 01-05-1978 Glaucoma screening Diabetes: R etinopathy Screening [facility] Start: 1970 Medicare Annual Well ness (AWV) Medicare Annual Wellness (AWV) [facility] Start: 1968 Screening for malign ant neoplasm of colon [facility] Start: 1968 Tobacco Counseling Tobacco Counselin evin [facility] Payers Date Payer Category Payer Unknown 2019 Medicare (Managed Care) [facility] [id number] 2019 Medicare HMO [employer] MEDICARE [id number] 2016 Medicaid [id number]. [id number] 2015 Medicare [id number] [id number]. [id number] 1968 Unknown [id number] 2.16.840.1.308792.3.579.2. 593 1968 Unknown [id number] 2.16.840.1.422091.3.579.2. 593 1968 Unknown [id number] 2.16.840.1.402128.3.579.2. 593 1968 Unknown [id number] 2.16.840.1.521055.3.579.2. 593 1968 Unknown [id number] 2.16.840.1.997229.3.579.2. 128 1968 Unknown [id number] 2.16.840.1.590374.3.579.2. 128 1968 Unknown [id number] 2.16.840.1.196093.3.579.2. 128 1968 Unknown [id number] 2.16.840.1.998314.3.579.2. 1285 1968 Unknown [id number] 2.16.840.1.340222.3.579.2. 1285 1968 Unknown [id number] 2.16.840.1.134020.3.579.2. 1259 1968 Unknown [id number] 2.16.840.1.634371.3.579.2. 9 1968 Unknown [id number] 2.16.840.1.940175.3.579.2. 1259 1968 Unknown [id number] 2.16.840.1.927136.3.579.2. 1259 1968 Unknown [id number] 2.16.840.1.694887.3.579.2. 196 1968 Unknown [id number] 2.16.840.1.601213.3.579.2. 196 1968 Unknown [id number] 2.16.840.1.542760.3.579.2. 196 1968 Unknown [id number] 2.16.840.1.574398.3.579.2. 196 1968 Unknown [id number] 2.16.840.1.401820.3.579.2. 196 1968 Unknown [id number] 2.16.840.1.936480.3.579.2. 196 1959 Medicaid [id number] 1959 Unknown [id number] Social History Date Type Detail Facility Start: 11-17-2023 End: 10-29-2024 Tobacco smoking status NHIS Smokes tobacco daily [facility] History of tobacco use Cigarette Smoker [facility] Start: 11-17-2023 End: 10-29-2024 Tobacco use and exposure Smokeless tobacco non-user [facility] Start: 11-17-2023 End: 01-07-2025 Alcoholic beverage intake Lifetime non-drinker (finding) [facility] Start: 11-17-2023 End: 05-22-2024 History of Social function [facility] Start: 11-17-2023 End: 05-22-2024 Tobacco use panel [facility] Start: 11-17-2023 Alcohol Comment caffine: 2 cup s of coffe and 6 soda daily [facility] Start: 1970 Sex assigned at Not on file [facility] Start: 02-03-2022 End: 10-29-2024 Alcoholic beverage intake Current non-drinker of alcohol (finding) [facility] Do you belong to any clubs or organizations such as jehovah's witness groups, unions, fraternal or athletic groups, or school groups? No [facility] Are you now , , , , never or living with a partner? [facility] Frequency of Alcohol Consumption Never [facility] Do you feel stress - tense, restless, nervous, or anxious, or unable to sleep at night because your mind is troubled all the time - these days [OSQ] Only a little [facility] Start: 12-12-2015 Sex Female (finding) [facility] Medical Equipment Procedure Code Equipment Code Equipment Origin al Text Equipment Identifier Dates Bejny Xience Sierr a 3.5x15 Rx - [id number] [facility] Start: 03-13-2020 Benjy Xience Sierr a 3.5x8 Rx - [id number] FDA Start: 03-13-2020 Benjy santoyo 3x15 Rx - [id number] FDA Start: 03-13-2020 Goals Date Patient Goal Desired Activity /State Personal health goal Comment on above: Formatting of this n ote might be different from the original. Evaluation of progress towards goal: feeling much better, moving well with therapy Clinical Notes 02-27-2024 to 03-26-2025 Telephone Encounter - Anne Velasquez RN - 02/20/2025 11:44 AM EDTTelephone Encounter - Alicia Henry MD - 02/20/2025 11:44 AM EDTTelephone Encounter - Shari Gould RN - 02/20/2025 11:44 AM EDT Note Date & Type Note Facility 03-26-2025 Note OPERATIVE REPORT DATE OF PROCEDURE: 03/26/2025 PREOPERATIVE DIAGNOSES: 1. C5-C6 and C6-7 cervical stenosis with radiculopathy. 2. C5-C6 and C6-7 degenerative disc disease POSTOPERATIVE DIAGNOSES: 1. C5-C6 and C6-7 cervical stenosis with radiculopathy. 2. C5-C6 and C6-7 degenerative disc disease OPERATION PERFORMED: 1. C5-C6 and C6-C7 anterior cervical diskectomy and fusion with decompression and stabilization of spinal cord and nerve roots. 2. C5-C6 and C6-C7 Atrix-C allograft with demineralized bone matrix, 7-mm and 8-mm height respectively 3. C5 through C7 anterior cervical plate, CervAlign plate with 14m fixed angle and variable screws, SurgAlign instrumentation SURGEON: Obdulio Coles M.D. DIRECTOR OF STUDENT FINANCIAL AID: BOOM Agee PA-C assisted throughout the procedure with positioning, draping, retraction, wound closure and dressing application. ANESTHESIA: General. INDICATIONS: This is a 55-year-old female with refractory neck and arm pain, numbness/tingling and weakness from cervical stenosis primarily at C5 through C7. Patient has tried and failed conservative therapy including medication management, physical therapy, chiropractic treatment, cervical RFA and neck injections. Due to the persistence of the symptoms and reduction in ADLs, patient elected surgical treatment. Patient therefore understood the indications for the surgery as well as risks, benefits, and alternatives. These risks included, but are not limited to, paralysis, infection, dural tear, hematoma, nerve root injury, nonunion, permanent speech and swallowing disturbances, MD, stroke, DVT/PE, etc. All questions were answered and informed consent was obtained. OPERATIVE PROCEDURE: The patient was taken to the operating room by Anesthesiology Service and had satisfactory general anesthesia. A first-generation cephalosporin was given within 1 hour of surgical incision, 2 g of cefazolin was given IV. Venous thromboembolic prophylaxis was performed with sequential devices. The patient was then positioned supine on a standard OR table, occiput in a doughnut. Neck extended well within the means of what can be tolerated neurologically. The anterior neck was then prepped and draped entirely in the usual sterile fashion. Before incision, a formal time-out was taken per protocol. We next took a left-sided Kaye-Alvares approach to the anterior cervical spine. A vertical incision was made in line with the skin crease. The platysma was divided in line with this incision. Blunt dissection was then proceeded medial to the sternocleidomastoid and carotid sheath. The omohyoid was divided. Intraoperative radiographic localization of level was confirmed. We then elevated the longus colli from C5 through C7. Satisfied with the exposure and confirmation of level, we positioned the self-retaining retractor at C5-6. We then began complete diskectomy with a variety of curettes from uncus to uncus. Bilateral endplate decortications were then performed with a high-speed indra going back to the PLL. The PLL was then resected, incised in the midline going to neural foramina bilaterally. This was done until we could see the exiting portion of the C6 nerve roots. This thereby totally decompressed the neural elements. Satisfied with this, we then achieved hemostasis and sized the interspace. A size 7-mm graft appeared appropriate. The graft was then impacted into position with an excellent tight fit. Satisfied with this, we then repositioned the self-retaining retractor at C6-C7 and repeated the same procedure. Once again, complete diskectomy was performed with a variety of curettes from uncus to uncus under Humboldt pin distraction. Bilateral endplate decortications were performed with a high-speed indra going back to the PLL. The PLL was then resected, incised in the midline going to neural foramina bilaterally. This was done until we could see the exiting portion of the C7 nerve roots. This thereby totally decompressed our neural elements. Satisfied with this, we then achieved hemostasis and sized the interspace. A size 8-mm graft was appeared appropriate. The graft was then impacted into position with an excellent tight fit. Humboldt pins removed and hemostasis achieved. Satisfied with this, we then took a CervAlign 28-mm plate from [id number]. 14mm fixed angle and variable screws were then used to secure the plate in position towards each level. Excellent torque insertion was achieved. The locking mechanism was engaged. Final x-rays were taken demonstrating good position of the spine and all of the implants. Satisfied with this, we then achieved hemostasis. We then copiously irrigated the wound. We then inserted a ALEXI drain through a separate stab incision. The wound was then closed in layers with a running 2-0 Vicryl suture. A 4-0 Monocryl was used for the skin. The skin edges were sealed with Dermabond. Steri-strips were placed over the incision. A dry sterile dressing was applied. Cervical collar secured (more content not included)... [facility] 03-22-2025 Note Chief Complaint Neck pain History of Present Illness The patient is a 55-year-old female with complaints of about constant neck pain with pain, numbness and tingling and weakness down the bilateral arms into the hands Symptoms began 20+ years ago. No injury or fall. Current VAS score of 6 out of 10. Symptoms are worse with movement. No relieving factors. Modifying factors include anti-inflammatories, muscle relaxants, hot packs, ice, physical therapy, child care aide, home exercises, and injections/CRFA which have provided really no relief. No previous spinal surgeries PCP: Fred Pryor MD Review of Systems Constitutional: No fevers, chills Respiratory: No shortness of breath, cough Cardiovascular: No chest pain, palpitations Gastrointestinal: No nausea, vomiting, incontinence Genitourinary: No dysuria or incontinence Musculoskeletal: (+) neck pain, arm pain Neurologic: (+) numbness/tingling, weakness Psychiatric: No anxiety, depression Physical Exam General: Alert and oriented, well nourished, no acute distress. Head: Atraumatic, normocephalic Lungs: No respiratory distress. CTA bilaterally, no wheezes Heart: RRR, no murmur Abdomen: Soft, non-tender, non-distended, normal bowel sounds Musculoskeletal: Limited cervical ROM. TTP cervical spine. 5/5 muscle strength bilateral UE Skin: Inspection of cervical spine, shows no skin lesions or open wounds. Neurologic: Awake, alert, and oriented X3, sensory intact UE Psychiatric: Cooperative, appropriate mood and affect Additional Vitals No qualifying data available. Assessment/Plan Assessment: C5-7 degenerative disc disease with stenosis and radiculopathy Plan: C5-7 anterior cervical discectomy and fusion with allograft and plate Problem List/Past Medical History Ongoing Allergies Anxiety Arthritis Back pain CAD (coronary artery disease) Cervical radiculopathy COPD (chronic obstructive pulmonary disease) Degenerative disc disease, lumbar Depressed Diabetes Forgetfulness GERD (gastroesophageal reflux disease) Irritable bowel Migraine Neck pain Obesity Old MD (myocardial infarction) Panic attack Scoliosis Seasonal allergies Smoker Smokers' cough Spinal stenosis Stroke ANNEMARIE (stress urinary incontinence, female) Thin skin White coat syndrome with hypertension Historical Colon polyp Infection of nail bed of finger Shingles Procedure/Surgical History BILAT BIG TOENAIL EXCISION CARDIAC SURGERY PROCEDURE REMOVAL OF OVARY(S) LAPAROSCOPIC CHOLECYSTECTOMY ANESTH HYSTERECTOMY ANESTH TUBAL LIGATION COLONOSCOPY & POLYPECTOMY REMOVAL OF ADENOIDS REMOVAL OF TONSILS Reconstruction Nail Bed (Left, Thumb) (08/22/2019) Medications Inpatient No active inpatient medications Home Abilify 5 mg oral tablet, 5 mg= 1 tabs, Oral, HS (at bedtime) Lexapro 10 mg oral tablet, 10 mg= 1 tabs, Oral, HS (at bedtime) Ozempic 2 mg/3 mL (0.25 mg or 0.5 mg dose) subcutaneous solution, 2 mg, Subcutaneous, Weekly, PRN Percocet 5/325, 1 tabs, Oral, q6hr, PRN Allergies Latex (Burning, Itching, Swelling) metFORMIN (Diarrhea) Social History Alcohol Never Employment/School Unemployed Exercise Exercise type: Walking. Home/Environment Lives with Alone. Living situation: Home/Independent. Home equipment: Glucose monitoring, Walker/Cane, Wheelchair. Nutrition/Health Diabetic, Caffeine intake amount: coffee-1 pot daily, soda 4 cans daily. Substance Current, Marijuana, Daily Tobacco 10 or more cigarettes (1/2 pack or more)/day in last 30 days Use:. Cigarettes, 1 per day. Packs, 40 year(s). Started age 16 Years. Ready to change: No. SMOKING CESSATION PAMPHLET PLACCED IN CAHRT Lab Results Microbiology - Current Encounter No qualifying data available. Diagnostic Results MRI cervical spine without contrast was reviewed from the [facility] from 08/10/2024 Impression Moderate degenerative changes at C5-6 with central canal and left foraminal stenosis. MRI lumbar spine without contrast was reviewed from the [facility] from 09/07/2024 Impression Multilevel discovertebral degenerative changes greatest at the L5-S1 level. Mild central canal stenosis of lower lumbar spine. Multilevel facet hypertrophy. Neuroforaminal L4-S1, worse at L5-S1 on the left and moderate on the right. Electronically signed by aCde Hicks PA-C 03/22/25 09:29 EDT Electronically signed by Obdulio Rose MD 03/26/2025 09:25 EDT [facility] 02-20-2025 Miscellaneous Notes Surgeon: Dr. Obdulio Rose Type of surgery: Anterior Cervical Discectomy Fusion C5-7 Date of surgery: 03/26/25 Surgery location: [facility] Type of anesthesia: General On a blood [...] note faxed back documented in this encounter [facility] 02-20-2025 Telephone encounter Note Surgeon: Dr. Obdulio Rose Type of surgery: Anterior Cervical Discectomy Fusion C5-7 Date of surgery: 03/26/25 Surgery location: [facility] Type of anesthesia: General On a blood thinner?: N/A On an antiplatelet?: ASA 81 mg Date of last EK10/18/24- Lexiscan 10/29/24 Last office visit date and who they saw: 10/18/24 Dr. Henry History of CVA/TIA, DVT/PE? None known Was cleared for similar surgery after 10/29/24 Lexiscan. Can she be cleared w/ same risk? [facility] 02-20-2025 Telephone encounter Note Yes she has a moderate non prohibitive preoperative cardiovascular risk and can proceed without further testing. Aspirin can be held 2-3 days perioperatively [facility] 02-20-2025 Telephone encounter Note Clearance note faxed back [facility] 01-07-2025 History of Present illness Narrative Associated Problem(s): Arteriosclerosis of coronary artery Non compliant with taking asa and crestor I explained reason it should be taken and consequences of not taking this Associated Problem(s): Colon cancer screening refused Associated Problem(s): Cigarette nicotine dependence without complication The patient has been advised of the risks of continued smoking: stroke, MD, all forms of cancer, lung disease, and [...] aspirin 81 mg, Daily RT Continuous Glucose General Ii Farmworker (FreeStyle Helen 2 [place]) device 1 each, Does not apply, Daily [...] of the risks of continued smoking: stroke, MD, all forms of cancer, lung disease, and [...] insulin back again) documented in this encounter [facility] 01-07-2025 Instructions Lacy Alberto NP - 01/07/2025 1:20 PM EDT Dose of gabapentin changed to 2 pills at bedtime only Increase ozempic to 2mg every 7 days Will fax order to [facility] for Mammogram, they should call you documented in this encounter [facility] 10-30-2024 Miscellaneous Notes Images from the original [...] (ok-hipaa) with stress results and MBOs recommendations. Dyer Assistant asked for r/c to office to further [...] Preop clearance letter per MBO faxed via [employer] to Dr. Coles's office with [facility]. Fax confirmed sent via [employer]. documented in this encounter [facility] 10-30-2024 Telephone encounter Note Images from the [...] (ok-hipaa) with stress results and MBOs recommendations. Dyer Assistant asked for r/c to office to further discuss. Alicia Henry MD 10/30/2024 8:56 AM EDT Moderate preoperative cardiovascular risk non prohibitive, can proceed with surgery She has to restart taking aspirin and Crestor and she has to understand that the test is abnormal and if she continues to not take medication she will need another heart catheterization within the next couple of years [facility] 10-30-2024 Telephone encounter Note Preop clearance letter per MBO faxed via [employer] to Dr. Coles's office with [facility]. Fax confirmed sent via [employer]. [facility] 10-18-2024 History of Present illness Narrative [place] Date of visit: 10/18/2024 Date of : 1970 Age: 54 y.o. 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 CLEARANCE DR ROSE CERVICAL FUSION 11/02/2024 AND LUMBAR FUSION 12/21/24, LS TMP 06/30/21, LABS, EKG, CHEST XRAY 10/19/24 [facility], FORMS SCANNED TO MEDIA Pre-op Exam [...] tooth Depression Diabetes mellitus type 2, controlled ([facility]) Diverticulitis GERD (gastroesophageal reflux disease) Hypercholesterolemia Lumbar disc disease MD (myocardial infarction) ([facility]) Migraines Neck pain Obesity Sleep apnea Visual impairment glasses No data recorded No data recorded No data recorded Past Surgical History: Procedure Laterality Date ADENOIDECTOMY CARDIAC CATHETERIZATION stents x 2 Cardiac catheterization 03/13/2020 Performed by Rebecca Quinones MD at [facility] CARDIAC CATH LABS COLONOSCOPY with removal of polyups Coronary angiogram and left ventricular gram/pressure N/A 03/13/2020 Performed by Rebecca Quinones MD at [facility] CARDIAC CATH LABS CORONARY STENT PLACEMENT EGD N/A 08/24/2018 Performed by Hui Narvaez DO at [facility] EGD N/A 07/31/2018 Performed by Hui Narvaez DO at [facility] EXCISION CYST HEAD/NECK Circumferential 11/10/2020 Performed by Vanessa Hopkins MD PhD at [facility] EXCISION CYST MIDSECTION CPT code 63388 N/A 04/07/2021 Performed by Jamaal Shukla MD at [facility] EXCISION MASS PERINEUM and chest x 2 N/A 12/30/2020 Performed by Jamaal Shukla MD at [facility] HYSTERECTOMY INCISION DRAINAGE GROIN Left 04/07/2021 Performed by Jamaal Shukla MD at [facility] INJECTION MEDIAL BRANCH NERVE BLOCK: right L34 45 51 Right 08/19/2017 Performed by Cameron Hsieh MD at [facility] INJECTION MEDIAL BRANCH NERVE BLOCK: right L34 45 51 mbb 1 OF 2 Right 03/11/2017 Performed by Cameron Hsieh MD at [facility] INJECTION SACROILIAC NERVE Bilateral 03/02/2019 Performed by Cameron Hsieh MD at [facility] INJECTION SACROILIAC NERVE Right 05/22/2018 Performed by Cameron Hsieh MD at [facility] INJECTION SACROILIAC NERVE Right 05/08/2018 Performed by Cameron Hsieh MD at [facility] INJECTION SACROILIAC NERVE: left SI inj 1of 2 Left 04/08/2017 Performed by Cameron Hsieh MD at [facility] INJECTION SACROILIAC NERVE: Left SI INJ 2 OF 2 Left 04/22/2017 Performed by Cameron Hsieh MD at [facility] Intravascular pressure measurement first vessel(fractional flow reserve) N/A 03/13/2020 Performed by Rebecca Quinones MD at [facility] Intravascular ultrasound coronary N/A 03/13/2020 Performed by Rebecca Quinones MD at [facility] LAPAROSCOPIC CHOLECYSTECTOMY N/A 09/19/2018 Performed by Hui Narvaez DO at [facility] RADIO FREQUENCY ABLATION L3/4,4/5,5/S1 Left 12/06/2016 Performed by Cameron Hsieh MD at [facility] RADIO FREQUENCY ABLATION LEFT SI Left 05/13/2017 Performed by Cameron Hsieh MD at [facility] RADIO FREQUENCY ABLATION: left L34 45 51rfa Left 10/30/2018 Performed by Cameron Hsieh MD at [facility] RADIO FREQUENCY ABLATION: left SI Left 06/19/2018 Performed by Cameron Hsieh MD at [facility] RADIO FREQUENCY ABLATION: right L34 45 51rfa Right 11/13/2018 Performed by Cameron Hsieh MD at [facility] RADIO FREQUENCY ABLATION: right SI Right 07/03/2018 Performed by Cameron Hsieh MD at [facility] RADIOFREQUENCY ABLATION SPINAL: left L34 45 51rfa Left 11/07/2017 Performed by Cameron Hsieh MD at [facility] RADIOFREQUENCY ABLATION SPINAL: right L34 45 51 Right 09/12/2017 Performed by Cameron Hsieh MD at [facility] RESECTION SUBMUCOSAL NASAL Bilateral 11/10/2020 Performed by Vanessa Hopkins MD PhD at [facility] SEPTOPLASTY Circumferential 11/10/2020 Performed by Vanessa Hopkins MD PhD at [facility] Stent drug-eluting left anterior descending N/A 03/13/2020 Performed by Rebecca Quinones MD at [facility] TONSILLECTOMY TOTAL ABDOMINAL HYSTERECTOMY W/ BILATERAL SALPINGOOPHORECTOMY UVULOPLASTY N/A 01/21/2022 Performed by Vanessa Hopkins MD PhD at [facility] Family History Problem Relation Age of Onset [...] min Stress: No Stress Concern Present (09/17/2020) [employer] [place] [employer] - Occupational Stress Questionnaire Feeling of Stress : Only a little Social Connections: Socially Isolated (09/17/2020) Social Connection and Isolation Panel [NHANES] Frequency of Communication with Friends and Family: More than three times a week Frequency of Social Gatherings with Friends and Family: More than three times a week Attends L[employer] Services: Never Active Member of Clubs or [...] UP No follow-ups on file. PCP: BHANU PARKINSON Referring Physician: Lacy Alberto, YUSUF-AGRICULTURAL LENDER [address] [place] [address] documented in this encounter [facility] 10-18-2024 Instructions Lacy Miller CMA - 10/18/2024 10:30 AM EDT Are You Ready To Kick The Habit? Free Tobacco Cessation Resources [facility] Services [facility] provide all employees with free tobacco cessation services that include: Counseling to understand nicotine addiction Education about medications that can help you successfully quit Assistance with developing a plan to quit Call to set up an individual appointment or find out when group classes will be held: [facility]: [phone] [facility]: [phone] [facility]: [phone] [facility]: [phone] Quit Smoking Action Plan and Resources [facility] offers an eight-week, online smoking cessation plan to all [facility] employees, regardless of whether [place] is your medical insurance provider. Go to [email or web address] ss and click the Health Risk Assessment and Resources link to get started. In the [employer] menu, click Action Plans instead of Health Risk Assessment to access the Quit Smoking Action Plan. Additional smoking cessation resources are also available to all [facility] employees on the [employer] web page at www.[employer]/quitsm artie. [place] Tobacco Cessation Program If [place] is your medical insurance provider, there are more free resources available to you, including: No copays or deductibles on local tobacco cessation counseling services to help you quit Prescription assistance for tobacco cessation medications to help you quit For details about the tobacco cessation program available to [place] members, go to www.[facility].[employer] (Search: Tobacco Cessation Program). [place] Tobacco Quit Line 2-696-UIWC-NOW ( ) is a toll-free, telephonic service that helps [place] residents quit smoking and using tobacco. It is staffed by experts who tailor a quit plan for you and provide you with advice. [place] Tobacco Quit Line 2-097-JWXD-NOW ( ) is a toll-free, telephonic service that helps [place] residents quit smoking and using tobacco. It is staffed by experts who tailor a quit plan for you and provide you with advice. Two weeks of nicotine replacement therapy may be provided at no charge, if needed. Additional Resources These national organizations also offer free information and resources to help you quit tobacco: [employer]--www.cancer.org/healthy/st ayawayfromtobacco [employer]--www.heart.org (Search: Quit Smoking) Centers for Disease Control and Prevention--www.cdc.gov/tobacco [employer]--www.lungusa.org documented in this encounter [facility] 10-17-2024 Miscellaneous Notes Left message for patient to remind them to bring their most current medication list with them to their appointment. documented in this encounter [facility] 10-17-2024 Telephone encounter Note Left message for patient to remind them to bring their most current medication list with them to their appointment. [facility] 10-08-2024 History of Present illness Narrative Associated [...] Problem(s): Bipolar disorder, current episode mixed, mild (CMS/[facility]) No dose changes Associated Problem(s): Cervical spinal [...] being taken. She does not see a geographic information scientist.Eye exam is not current. Anxiety Presents for [...] (ABILIFY) 5 mg, Oral, Daily Continuous Glucose General Ii Farmworker (FreeStyle Helen 2 [place]) device 1 each, Does not apply, Daily [...] of the risks of continued smoking: stroke, MD, all forms of cancer, lung disease, and [...] of the risks of continued smoking: stroke, MD, all forms of cancer, lung disease, and . Options for quitting smoking include: cold turkey, hypnosis, acupuncture, nicotine replacement meds (gum, lozenges, and patches), Buproprion, and Varenicline. At this time pt is encouraged to evaluate their goals for wanting to quit smoking, and reach out to provider when ready to start this process documented in this encounter [facility] 10-08-2024 Instructions Lacy Alberto NP - 10/08/2024 1:00 PM EDT Recommend quitting smoking: The patient has been advised of the risks of continued smoking: stroke, MD, all forms of cancer, lung disease, and [...] please contact me documented in this encounter [facility] 08-06-2024 History of Present illness Narrative Associated [...] Lumbar back pain: Daily pain, went to [facility] pain mgmt, they had wanted her to [...] (ABILIFY) 5 mg, Oral, Daily Continuous Glucose General Ii Farmworker (FreeStyle Helen 2 [place]) device 1 each, Does not apply, Daily Continuous Glucose Sensor (FreeStyle Helen 2 Sensor) [facility] [place] USE DIRECTED to test [...] complication, without long-term current use of insulin ([facility]) - Primary Check blood sugars daily, notify [...] Type 2 diabetes mellitus with diabetic polyneuropathy ([facility]) Recommend good blood glucose control Freq foot examinations or s/s open wounds Type 2 diabetes mellitus with other specified complication ([facility]) Associated Problem(s): Anxiety and depression ([facility]) Current meds lexapro and abilify Associated Problem(s): Bipolar disorder, current episode mixed, mild ([facility]) Current meds: lexapro and abilify Associated Problem(s): Type 2 diabetes mellitus without complication, without long-term current use of insulin ([facility]) Check blood sugars daily, notify if <70 [...] again Associated Problem(s): Arteriosclerosis of coronary artery ([facility]/HCC) Not compliant with statin, asa, or b christiano use Associated Problem(s): Chronic obstructive pulmonary disease, unspecified (CMS/[facility]) Recommend quitting smoking No daily inhaler use Associated Problem(s): Type 2 diabetes mellitus with diabetic polyneuropathy ([facility]/HCC) Recommend good blood glucose control Freq foot examinations or s/s open wounds documented in this encounter [facility] 08-06-2024 Instructions Lacy Alberto NP - 08/06/2024 3:00 PM EST Increase ozempic to 1mg daily Continue with pain mgmt documented in this encounter [facility] 07-23-2024 History of Present illness Narrative Associated Problem(s): Spondylosis of 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 OARRS reviewed Will provide a refill of pain medication until seen by pain mgmt documented in this encounter [facility] 06-25-2024 Telephone encounter Note Please contact pt, her insurance company denied her MRI lumbar spine, states she needs to do 6 weeks PT Is she willing to do this, or does she want a referral to pain mgmt, and if she wants a referral: [place]? [place] [facility] 06-25-2024 Miscellaneous Notes Please contact pt, her insurance company denied her MRI lumbar spine, states she needs to do 6 weeks PT Is she willing to do this, or does she want a referral to pain mgmt, and if she wants a referral: [place]? [place] documented in this encounter [facility] 05-22-2024 History of Present illness Narrative Associated [...] order for a Rolator walker Fax number [phone] Pt is asking for a handicap plaque [...] (ABILIFY) 5 mg, Oral, Daily Continuous Glucose General Ii Farmworker (FreeStyle Helen 2 [place]) device 1 each, Does not apply, Daily Continuous Glucose General Ii Farmworker (FreeStyle Helen 3 [place]) device 1 each, Does not apply, Daily [...] (CMS/HCC) Needs to quit smoking Mixed hyperlipidemia ([facility]) Declines use of statin therapy Advised risk for stroke, MD, without use Type 2 diabetes mellitus without complication, without long-term current use of insulin (CMS/[facility]) Check blood sugars daily, notify if <70 [...] MG/DOSE,) 2 MG/3ML solution pen-injector Continuous Glucose General Ii Farmworker (FreeStyle Helen 3 [place]) device RESOLVED: BMI 32.0-32.9,adult Type 2 diabetes mellitus with diabetic polyneuropathy (CMS/HCC) Need for tight blood sugar control Tobacco use The patient has been advised of the risks of continued smoking: stroke, MD, all forms of cancer, lung disease, and [...] of statin therapy Advised risk for stroke, MD, without use Associated Problem(s): Tobacco use The patient has been advised of the risks of continued smoking: stroke, MD, all forms of cancer, lung disease, and . Options for quitting smoking include: cold turkey, hypnosis, acupuncture, nicotine replacement meds (gum, lozenges, and patches), Buproprion, and Varenicline. At this time pt is encouraged to evaluate their goals for wanting to quit smoking, and reach out to provider when ready to start this process Associated Problem(s): Arteriosclerosis of coronary artery (CMS/HCC) Does not take stating therapy, or b christiano, does take ASA Associated Problem(s): Angina pectoris, unspecified (CMS/HCC) Hx of CAD, no active angina, does not take statin or b christiano, pt declines to take Associated Problem(s): Type 2 diabetes mellitus without complication, without long-term current use of insulin ([facility]) Check blood sugars daily, notify if <70 [...] continue to use documented in this encounter [facility] 05-22-2024 Instructions Lacy Alberto NP - 05/22/2024 9:00 AM EST Order MRI documented in this encounter [facility] 04-30-2024 Telephone encounter Note Patient is asking if she can get a handicap placard? MUKESH [facility] 04-30-2024 Miscellaneous Notes Patient is asking if she can get a handicap placard? MUKESH Patient said she did go up to .5 documented in this encounter [facility] 04-30-2024 Telephone encounter Note Patient said she did go up to .5 [facility] 03-23-2024 Telephone encounter Note Call from [facility] Er, Dr Nobles... pt in er asking [...] several months since she was last seen [facility] 03-23-2024 Miscellaneous Notes Call from [facility] Er, Dr Nobles... pt in er asking [...] was last seen documented in this encounter [facility] 02-27-2024 Telephone encounter Note pt called needing a new free style helen silver steward sent into [facility] her old one no longer works and is in need of a new one [facility] 02-27-2024 Miscellaneous Notes pt called needing a new free style helen silver steward sent into [facility] her old one no longer works and is in need of a new one documented in this encounter [facility] Healthcare Evaluation note Diagnosis Type 2 diabetes mellitus without complication, without long-term current use of insulin (CMS/HCC) documented in this encounter [facility] HealthcareEvaluation note* Diagnosis Type 2 diabetes [...] of insulin (CMS/HCC) documented in this encounter [facility] HealthcareEvaluation note* Diagnosis Type 2 diabetes [...] and depression (CMS/HCC) documented in this encounter [facility] HealthcareEvaluation note* Diagnosis Type 2 diabetes [...] insulin (CMS/HCC)- Primary documented [facility] this encounter [facility]* Diagnosis Type 2 diabetes mellitus without complication, without long-term current use of insulin (CMS/HCC)- Primary documented in this encounter [facility]* Diagnosis Type 2 diabetes mellitus without complication, without long-term current use of insulin (CMS/HCC)- Primary documented in this encounter [facility]* Diagnosis Type 2 diabetes mellitus [...] without myelopathy- Primary documented in this encounter [facility] HealthcareEvaluation note* Diagnosis Type 2 diabetes [...] spine without myelopathy documented in this encounter [facility] HealthcareEvaluation note* Diagnosis Type 2 diabetes [...] of unspecified site documented in this encounter [facility] HealthcareEvaluation note* Diagnosis Type 2 diabetes [...] malignant neoplasms, colon documented in this encounter [facility] HealthcareEvaluation note* Diagnosis Pre-op testing- Primary Unspecified pre-operative examination Coronary artery disease involving belkofski coronary artery of belkofski heart without angina pectoris Dyspnea, unspecified type documented in this encounter [facility]* Diagnosis Type 2 diabetes mellitus [...] use of insulin documented in this encounter [facility] HealthcareEvaluation note* Diagnosis Type 2 diabetes [...] of coronary artery documented in this encounter [facility] HealthcareEvaluation note* Diagnosis Type 2 diabetes [...] encounter [facility] HealthcareInstructionsNot on filedocumented in this encounter[facility] SystemInstructionsNot on filedocumented in this encounterPro[facility] SystemInstructionsNot on filedocumented in this [facility] Summary Purpose Family History No Family History Records FoundNo Family History Records FoundNo Family History Records FoundNo Family History Records FoundNo Family History Records FoundNo Family History Records Found Advance Directives No Advanced Directives Records Found Date Activated Date Inactivated Comments 09/17/2020 8:38 [...] complication, without long-term current use of insulin ([facility]/HCC) Lacy Alberto, DOMINIC [address] [place] [address] Referral ID Status Reason Start Date Expiration Date V isits Requested Visits Authorized [id number] Pending Review 04/05/2024 10/02/2024 1 1 Referral ID Status Reason Start Date Expiration Date Visits Re quested Visits Authorized [id number] Closed 1 1 Additional Source Comments INFORMATION SOURCE (unrecogn ized section and content) DATE CREATED AUTHOR 01/21/2019 [facility] DATE CREATED AUTHOR AUTHOR'S ORGANIZ ATION 01/30/2020 [facility] DATE CREATED AUTHOR AUTHOR'S ORGANIZ ATION 09/13/2022 [facility] DATE CREATED AUTHOR AUTHOR'S ORGANIZ ATION 11/15/2024 [facility] DATE CREATED AUTHOR AUTHOR'S ORGANIZ ATION 01/11/2025 [facility] DATE CREATED AUTHOR AUTHOR'S ORGANIZ ATION 03/28/2025 [facility] Care Teams (unrecognized sec tion and content) Research Nutritionist Relationship Specialty Start Date End Date Fred Pryor MD [address] [place] [address] PCP - General Family Medicine 11/17/23 Lacy Alberto NP [address] [place] [phone] Referring Physician Family Medicine 07/04/22 Lacy Alberto NP [address] [place] [address] Nurse Practitioner Family Medicine 11/17/23 Research Nutritionist Relationship Specialty Start Date End Date Fred Pryor MD [address] [place] [address] PCP - General Family Medicine 11/17/23 Lacy Alberto NP [address] [place] [address] Referring Physician Family Medicine 07/04/22 Lacy Alberto NP [address] [place] [address] Nurse Practitioner Family Medicine 11/17/23 Research Nutritionist Relationship Specialty Start Date End Date Fred Pryor MD [address] [place] [phone] PCP - General Family Medicine 11/17/23 Lacy Alberto NP [address] [place] [address] Referring Physician Family Medicine 07/04/22 Lacy Alberto NP [address] [place] [address] Nurse Practitioner Family Medicine 11/17/23 Research Nutritionist Relationship Specialty Start Date End Date Fred Pryor MD [address] [place] [address] PCP - General Family Medicine 11/17/23 Lacy Alberto NP [address] [place] [address] Referring Physician Family Medicine 07/04/22 Lacy Alberto NP [address] [place] [address] Nurse Practitioner Family Medicine 11/17/23 Research Nutritionist Relationship Specialty Start Date End Date Fred Pryor MD [address] [place] [address] PCP - General Family Medicine 11/17/23 Lacy Alberto NP [address] [place] [address] Referring Physician Family Medicine 07/04/22 Lacy Alberto NP [address] [place] [address] Nurse Practitioner Family Medicine 11/17/23 Research Nutritionist Relationship Specialty Start Date End Date Fred Pryor MD [address] [place] [address] PCP - General Family Medicine 11/17/23 Lacy Alberto NP [address] [place] [address] Referring Physician Family Medicine 07/04/22 Lacy Alberto NP [address] [place] [address] Nurse Practitioner Family Medicine 11/17/23 Research Nutritionist Relationship Specialty Start Date End Date Fred Pryor MD [address] [place] [address] PCP - General Family Medicine 11/17/23 Lacy Alberto NP [address] [place] [address] Referring Physician Family Medicine 07/04/22 Lacy Alberto NP [address] [place] [address] Nurse Practitioner Family Medicine 11/17/23 Research Nutritionist Relationship Specialty Start Date End Date Fred Pryor MD [address] [place] [address] PCP - General Family Medicine 11/17/23 Lacy Alberto NP [address] [place] [address] Referring Physician Family Medicine 07/04/22 Lacy Alberto NP [address] [place] [address] Nurse Practitioner Family Medicine 11/17/23 Research Nutritionist Relationship Specialty Start Date End Date Fred Pryor MD [address] [place] [address] PCP - General Family Medicine 11/17/23 Lacy Alberto NP [address] [place] [address] Referring Physician Family Medicine 07/04/22 Lacy Alberto NP [address] [place] [address] Nurse Practitioner Family Medicine 11/17/23 Research Nutritionist Relationship Specialty Start Date End Date Fred Pryor MD [address] [place] [phone] PCP - General Family Medicine 11/17/23 Lacy Alberto NP [address] [place] [address] Referring Physician Family Medicine 07/04/22 Lacy Alberto NP [address] [place] [address] Nurse Practitioner Family Medicine 11/17/23 Research Nutritionist Relationship Specialty Start Date End Date Fred Pryor MD [address] [place] [phone] PCP - General Family Medicine 11/17/23 Lacy Alberto NP [address] [place] [address] Referring Physician Family Medicine 07/04/22 Lacy Alberto NP [address] [place] [address] Nurse Practitioner Family Medicine 11/17/23 Research Nutritionist Relationship Specialty Start Date End Date Fred Pryor MD [address] [place] [address] PCP - General Family Medicine 11/17/23 Lacy Alberto NP [address] [place] [address] Referring Physician Family Medicine 07/04/22 Lacy Alberto NP [address] [place] [address] Nurse Practitioner Family Medicine 11/17/23 Research Nutritionist Relationship Specialty Start Date End Date Fred Pryor MD [address] [place] [address] PCP - General Family Medicine 11/17/23 Lacy Alberto NP [address] [place] [address] Referring Physician Family Medicine 07/04/22 Lacy Alberto NP [address] [place] [address] Nurse Practitioner Family Medicine 11/17/23 Research Nutritionist Relationship Specialty Start Date End Date Fred Pryor MD [address] [place] [address] PCP - General Family Medicine 11/17/23 Lacy Alberto NP [address] [place] [address] Referring Physician Family Medicine 07/04/22 Lacy Alberto NP [address] [place] [address] Nurse Practitioner Family Medicine 11/17/23 Research Nutritionist Relationship Specialty Start Date End Date Fred Pryor MD [address] [place] [address] PCP - General Family Medicine 11/17/23 Lacy Alberto NP [address] [place] [address] Referring Physician Family Medicine 07/04/22 Lacy Alberto NP [address] [place] [address] Nurse Practitioner Family Medicine 11/17/23 Research Nutritionist Relationship Specialty Start Date End Date Fred Pryor MD [address] [place] [address] PCP - General Family Medicine 11/17/23 Lacy Alberto NP [address] [place] [address] Referring Physician Family Medicine 07/04/22 Lacy Alberto NP [address] [place] [address] Nurse Practitioner Family Medicine 11/17/23 Research Nutritionist Relationship Specialty Start Date End Date Lacy Alberto APRN-AGRICULTURAL LENDER PCP - General Nurse Practitioner 12/30/16 Research Nutritionist Relationship Specialty Start Date End Date Lacy Alberto APRN-AGRICULTURAL LENDER PCP - General Nurse Practitioner 12/30/16 Research Nutritionist Relationship Specialty Start Date End Date Fred Pryor MD [address] [place] [phone] PCP - General Family Medicine 11/17/23 Lacy Alberto NP [address] [place] [phone] Referring Physician Family Medicine 07/04/22 Lacy Alberto NP [address] [place] [phone] Nurse Practitioner Family Medicine 11/17/23 Research Nutritionist Relationship Specialty Start Date End Date Lacy Alberto, BEEF CATTLE FARM MANAGER-AGRICULTURAL LENDER PCP - General Nurse Practitioner 12/30/16 Research Nutritionist Relationship Specialty Start Date End Date Fred Pryor MD [address] [place] [phone] PCP - General Family Medicine 11/17/23 Lacy Alberto NP [address] [place] [phone] Referring Physician Family Medicine 07/04/22 Lacy Alberto NP [address] [place] [phone] Nurse Practitioner Family Medicine 11/17/23 Research Nutritionist Relationship Specialty Start Date End Date Fred Pryor MD [address] [place] [phone] PCP - General Family Medicine 11/17/23 Lacy Alberto NP [address] [place] [phone] Referring Physician Family Medicine 07/04/22 Lacy Alberto NP [address] [place] [phone] Nurse Practitioner Family Medicine 11/17/23 Research Nutritionist Relationship Specialty Start Date End Date Fred Pryor MD [address] [place] [phone] PCP - General Family Medicine 11/17/23 Lacy Alberto NP [address] [place] [phone] Referring Physician Family Medicine 07/04/22 Lacy Alberto NP [address] [place] [phone] Nurse Practitioner Family Medicine 11/17/23 Research Nutritionist Relationship Specialty Start Date End Date Lacy Alberto, BEEF CATTLE FARM MANAGER-AGRICULTURAL LENDER PCP - General Nurse Practitioner 12/30/16 Research Nutritionist Relationship Specialty Start Date End Date Fred Pryor MD [address] [place] [phone] PCP - General Family Medicine 11/17/23 Lacy Alberto NP [address] [place] [phone] Referring Physician Family Medicine 07/04/22 Lacy Alberto NP [address] [place] [address] Nurse Practitioner Family Medicine 11/17/23 Reason for Visit (unrecogniz ed section and content) Reason Onset Date Comments Med Refill 04/30/2024 Reason Comments Diabetes Reason Comments 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 [employer] [facility]. provides no warranty or guarantee of the accuracy or completeness of information in this document.
--- NOTE | 2025-03-29 16:22 | ED_ITS ---
HPI HPI - General Adult General Chief complaint: Recheck/Abnormal Lab/Rx Stated complaint: OUTSIDE SALES PROFESSIONAL DRAINAGE Time Seen by Provider: 03/29/25 15:41 Source: patient Mode of arrival: walk-in Limitations: no limitations History of Present Illness HPI narrative: 55-year-old female presented to the emergency department for chief complaint of needing to have her ALEXI drain removed. Days ago in [facility] she had cervical neck surgery. He was supposed to have an appointment with her Bree's office today but she did not go. She came here instead. She wants to have her drain removed. She has had no issues and minimal drainage. Related Data Home Medications ?Medication ?Instructions ?Recorded ?Confirmed escitalopram oxalate 10 mg tablet 10 mg PO DAILY 07/3010/19/24 oxycodone-acetaminophen 5 mg-325 1 tab PO DAILY PRN pa in 07/30/24 10/19/24 mg tablet (Percocet) semaglutide 1 mg/dose (4 mg/3 mL) 0.5 mg subcut QWEEK 07/30/24 10/19/24 subcutaneous pen injector (Ozempic) gabapentin 300 mg capsule 300 mg PO TID 09/24/2410/19 aripiprazole 5 mg tablet 5 mg PO DAILY 10/19/2410/19 Allergies Allergy/AdvReac Type Severity Reaction Status Date / Time latex Allergy Unknown itching Verified 03/29/25 14:41 metformin Allergy Unknown Nausea Verified 03/29/25 14:41 Opioid HPI Opioid Management Most Recent Opioid Data: Last Pain Scale 4 Today, 14:41 Review of Systems ROS Narrative A ten point review of systems is negative except as noted above. PFSH PFSH Medical History (Updated 10/19/24 @ 10:32 by Tiff Camilo NP) Back pain ?M54.9 - Dorsalgia, unspecified (ICD-10) Arthritis ?M19.90 - Unspecified osteoarthritis, unspecified site (ICD-10) Anemia ?D64.9 - Anemia, unspecified (ICD-10) PTSD (post-traumatic stress disorder) ?F43.10 - Post-traumatic stress disorder, unspecified (ICD-10) Panic attacks ?F41.0 - Panic disorder [episodic paroxysmal anxiety] (ICD-10) Seizures (2015) ?R56.9 - Unspecified convulsions (ICD-10) Kidney stones ?N20.0 - Calculus of kidney (ICD-10) High cholesterol ?E78.00 - Pure hypercholesterolemia, unspecified (ICD-10) Lumbar spondylolysis ?M43.06 - Spondylolysis, lumbar region (ICD-10) Coronary artery disease ?I25.10 - Atherosclerotic heart disease of [place] coronary artery without angina pectoris (ICD-10) Diabetes ?E11.9 - Type 2 diabetes mellitus without complications (ICD-10) Uvular hypertrophy ?K13.79 - Other lesions of oral mucosa (ICD-10) Deviated nasal septum ?J34.2 - Deviated nasal septum (ICD-10) Right sided weakness ?R53.1 - Weakness (ICD-10) Angina pectoris ?I20.9 - Angina pectoris, unspecified (ICD-10) Myocardial infarction ?I21.9 - Acute myocardial infarction, unspecified (ICD-10) Chest pain ?R07.9 - Chest pain, unspecified (ICD-10) Polycythemia ?D75.1 - Secondary polycythemia (ICD-10) Leukocytosis ?D72.829 - Elevated white blood cell count, unspecified (ICD-10) Neck pain ?M54.2 - Cervicalgia (ICD-10) Degenerative disc disease Cervical radiculopathy ?M54.12 - Radiculopathy, cervical region (ICD-10) Cervical stenosis of spinal canal ?M48.02 - Spinal stenosis, cervical region (ICD-10) Obesity ?E66.9 - Obesity, unspecified (ICD-10) Low back pain ?M54.50 - Low back pain, unspecified (ICD-10) Depression ?F32.A - Depression, unspecified (ICD-10) Anxiety ?F41.9 - Anxiety disorder, unspecified (ICD-10) Diabetes 1.5, managed as type 2 ?E13.9 - Other specified diabetes mellitus without complications (ICD-10) Surgical History (Updated 03/29/25 @ 16:22 by Saul Nobles MD) History of radiofrequency ablation (RFA) of nerve of lumbar spine ?Z98.890 - Other specified postprocedural states (ICD-10) History of radiofrequency ablation (RFA) of nerve of cervical spine ?Z98.890 - Other specified postprocedural states (ICD-10) S/P epidural steroid injection ?Z92.241 - Personal history of systemic steroid therapy (ICD-10) History of tonsillectomy and adenoidectomy ?Z90.89 - Acquired absence of other organs (ICD-10) History of colonoscopy ?Z98.890 - Other specified postprocedural states (ICD-10) History of esophagogastroduodenoscopy (EGD) ?Z98.890 - Other specified postprocedural states (ICD-10) History of incision and drainage ?Z98.890 - Other specified postprocedural states (ICD-10) H/O local excision of skin lesion ?Z98.890 - Other specified postprocedural states (ICD-10) H/O nasal septoplasty ?Z98.890 - Other specified postprocedural states (ICD-10) History of facial surgery ?Z98.890 - Other specified postprocedural states (ICD-10) History of cholecystectomy ?Z90.49 - Acquired absence of other specified parts of digestive tract (ICD- 10) History of hysterectomy ?Z90.710 - Acquired absence of both cervix and uterus (ICD-10) Hx of tonsillectomy ?Z90.89 - Acquired absence of other organs (ICD-10) Hx of heart artery stent ?Z95.5 - Presence of coronary angioplasty implant and graft (ICD-10) Family History (Updated 10/19/24 @ 10:28 by Tiff Camilo NP) Other Family history of cancer Family history of diabetes mellitus Family history of heart disease Family history of hypertension Family history of myocardial infarction Family history of stroke Social History (Updated 10/19/24 @ 10:20 by Tiff Camilo NP) Within the past year, how often did you have a drink containing alcohol: never Score interpretation: A score less than 3 is consistent with normal alcohol consumption. Smoking status: Current every day smoker What tobacco products do you use: cigarettes Packs per day: 1 Years smoked: 40 Smoking pack-years: 40.00 Non-prescribed substance use: cannabis (any form) Highest level of school completed/degree received: high school graduate Little interest or pleasure in doing things: not at all Feeling down, depressed, or hopeless: not at all Exam Narrative Exam Narrative: Nurses note and vital signs reviewed and patient is not hypoxic. General:The patient appears well and in no apparent distress.Patient is resting comfortably on cart. Collar is in place Skin:Warm, dry, no pallor noted.There is no rash noted. Head:Normocephalic, atraumatic c-collar is in place. There is a dressing in place. The tubing is coming out from under the drain and there is approximately 10 mL of bloody drainage in the drain. Eye: Normal conjunctiva, no drainage Ears, Nose, Mouth, and Throat: oral mucosa is moist. Nares patent. Cardiovascular:Regular Rate and Rhythm Respiratory:Patient is in no distress, no accessory muscle use, lungs are clear to auscultation, no wheezing, rales or rhonchi Back:non-tender GI: Left and nontender Musculoskeletal: The patient has no evidence of calf tenderness, no pitting edema, symmetrical pulses noted bilaterally Neurological: Wake and alert Psychiatric:Cooperative Constitutional Vital Signs, click to edit/add: Last Vital Signs Temp 98.3 F 03/29/25 14:41 Pulse 93 H 03/29/25 14:41 Resp 03/29/25 14:41 BP 118/76 03/29/25 14:41 Pulse Ox 97 03/29/25 14:41 O2 Del Method Room Air 03/29/25 14:41 Course Vital Signs Vital signs: Vital Signs Temperature 98.3 F 03/29/25 14:41 Pulse Rate 93 H 03/29/25 14:41 Respiratory Rate 03/29/25 14:41 Blood Pressure 118/76 03/29/25 14:41 Pulse Oximetry 97 03/29/25 14:41 Oxygen Delivery Method Room Air 03/29/25 14:41 Temperature 98.3 F 03/29/25 14:41 Pulse Rate 93 H 03/29/25 14:41 Respiratory Rate 03/29/25 14:41 Blood Pressure 118/76 03/29/25 14:41 Pulse Oximetry 97 03/29/25 14:41 Oxygen Delivery Method Room Air 03/29/25 14:41 Medical Decision Making MDM Narrative Medical decision making narrative: Spoke to the electromedical service engineer for Dr. [place]. She knows the patient well and request that we remove the drain here. The patient had been instructed to see them in the office today but the patient was noncompliant. I remove the c-collar and the dressing. There is no suture to clip and the drain was removed in its entirety. There is no subsequent bleeding and a new dressing was placed. Differential Diagnosis Differential Diagnosis: Drain removal Discharge Plan Discharge Chief Complaint: Recheck/Abnormal Lab/Rx Clinical Impression: Removal of wound drain performed Patient Disposition: Home, Self-Care Time of Disposition Decision: 16:20 Condition: Good Mode of Transportation: Private Vehicle Prescriptions / Home Meds: No Action escitalopram oxalate 10 mg tablet 10 mg PO DAILY Ozempic 1 mg/dose (4 mg/3 mL) pen injector 0.5 mg subcut QWEEK oxycodone-acetaminophen [Percocet] 5-325 mg tablet 1 tab PO DAILY PRN (Reason: pain) gabapentin 300 mg capsule 300 mg PO TID aripiprazole 5 mg tablet 5 mg PO DAILY Print Language: [place] Citizen Instructions: [facility] (ED) Referrals: Lacy Alberto NP [Primary Care Provider, Family Practice] - 1 week
== END 2025-03-29 16:34 | disposition home or self-care (01) ==
PROVIDERS: Emergency Provider Emergency Medicine; PCP Nurse Practitioner
DX: Z48.03 Encounter for change or removal of drains (principal); F17.210 Nicotine dependence, cigarettes, uncomplicated; Z98.890 Other specified postprocedural states
CPT/HCPCS: 99282

== ENCOUNTER 2025-05-22 18:47 | Emergency (ER) | payer MEDICARE, MEDICAID, SELFPAY ==
[2025-05-22 18:53] VITALS: BP 135/79; PULSE 116; TEMP 37.2; O2SAT 96; BMI 31.0
--- NOTE | 2025-05-22 19:14 | CT_ITS ---
The [address] [address] Patient Name: ADDIE BEACH MRN: [id number] date: 1970 Sex: F Assigned Patient Location: ED.MAIN Current Patient Location: ED.MAIN Accession/Order Number: [id number] Exam Date: 05/22/2025 20:25 Report Date: 05/22/2025 20:47 At the request of: JOELLE AQUINO MD Procedure: CT abdomen pelvis w con CT Abdomen and Pelvis withcontrast TECHNIQUE: Axial imaging with 2-D reconstruction. The CT exam was performed using one or more the following dose reduction techniques: Automated exposure control, adjustment of the MA and/or Kv according to patient size, or use of the iterative reconstruction technique. COMPARISON: 07/01/2023 History: Acute left lower quadrant pain. LIMITATIONS: None LOWER THORAX Unremarkable LIVER: Unremarkable GALLBLADDER: Cholecystectomy clips identified. BILE DUCTS: 11 mm prominence. No obstructing stone. SPLEEN: Unremarkable PANCREAS: Unremarkable ADRENAL GLANDS: Unremarkable KIDNEYS:1 cm left without obstructing stone. There are no hydronephrosis. AORTA: No abdominal aortic aneurysm identified. RETROPERITONEUM: No significant retroperitoneal abnormalities identified. MESENTERY:Unremarkable STOMACH:Unremarkable SMALL BOWEL: The small bowel loops are nondistended. APPENDIX: The appendix is normal. COLON: Nondistended. Sigmoid diverticulosis. Peridiverticular stranding consistent with acute diverticulitis. No extraluminal air. No abscess. URINARY BLADDER: Urinary bladder is unremarkable. REPRODUCTIVE SYSTEM: Reproductive structures are unremarkable. PNEUMOPERITONEUM: None PERITONEAL FLUID:None BONY STRUCTURES: Unremarkable ABDOMINAL WALL: Unremarkable CT/CT abdomen pelvis w con IMPRESSION: Acute sigmoid diverticulitis. Impression dictated by: Vito Pina M.D. 05/22/2025 8:47 PM Dictation Location: [employer] Electronically authenticated by: [id number] Y Date: 05/22/2025 20:47
--- NOTE | 2025-05-22 19:16 | ED.ABDPAIN1 ---
HPI - Abdominal Pain General Chief Complaint: Abdominal Pain Stated Complaint: abd pain Time Seen by Provider: 05/22/25 18:59 Source: patient Mode of arrival: walk-in History of Present Illness HPI narrative: This 55-year-old female with a history of diverticulitis twice presents for evaluation of 2 days of left lower quadrant abdominal pain. Pain is worse with movement, passing gas and having a bowel movement. She states her stools have been loose. She has not had any bloody diarrhea. She denies any urinary symptoms. She has chronic back pain that is unchanged. She denies any chest pain or shortness of breath. She had a colonoscopy years ago and had 4 polyps removed at that time. She denies any fever stating that she does not get fevers however her temperature at triage was 99. She has nausea but no vomiting. Related Data Home Medications ?Medication ?Instructions ?Recorded ?Confirmed escitalopram oxalate 10 mg tablet 10 mg PO DAILY 07/30/24 05/22/25 semaglutide 1 mg/dose (4 mg/3 mL) 0.5 mg subcut QWEEK 07/30/24 05/22/25 subcutaneous pen injector (Ozempic) gabapentin 300 mg capsule 300 mg PO TID 09/24/24 05/22/25 aripiprazole 5 mg tablet 5 mg PO DAILY 10/19/24 05/22/25 Allergies Allergy/AdvReac Type Severity Reaction Status Date / Time ciprofloxacin (From Cipro) Allergy Intermediate Hives Verified 05/22/25 21:57 latex Allergy Unknown itching Verified 05/22/25 18:52 metformin Allergy Unknown Nausea Verified 05/22/25 18:52 Review of Systems ROS Status of ROS 10 or more systems reviewed and unremarkable except as noted in history and below [facility] Medical History (Updated 05/22/25 @ 21:07 by Ellen Bailey MD) Back pain ?M54.9 - Dorsalgia, unspecified (ICD-10) Arthritis ?M19.90 - Unspecified osteoarthritis, unspecified site (ICD-10) Anemia ?D64.9 - Anemia, unspecified (ICD-10) PTSD (post-traumatic stress disorder) ?F43.10 - Post-traumatic stress disorder, unspecified (ICD-10) Panic attacks ?F41.0 - Panic disorder [episodic paroxysmal anxiety] (ICD-10) Seizures (2014) ?R56.9 - Unspecified convulsions (ICD-10) Kidney stones ?N20.0 - Calculus of kidney (ICD-10) High cholesterol ?E78.00 - Pure hypercholesterolemia, unspecified (ICD-10) Lumbar spondylolysis ?M43.06 - Spondylolysis, lumbar region (ICD-10) Coronary artery disease ?I25.10 - Atherosclerotic heart disease of [place] coronary artery without angina pectoris (ICD-10) Diabetes ?E11.9 - Type 2 diabetes mellitus without complications (ICD-10) Uvular hypertrophy ?K13.79 - Other lesions of oral mucosa (ICD-10) Deviated nasal septum ?J34.2 - Deviated nasal septum (ICD-10) Right sided weakness ?R53.1 - Weakness (ICD-10) Angina pectoris ?I20.9 - Angina pectoris, unspecified (ICD-10) Myocardial infarction ?I21.9 - Acute myocardial infarction, unspecified (ICD-10) Chest pain ?R07.9 - Chest pain, unspecified (ICD-10) Polycythemia ?D75.1 - Secondary polycythemia (ICD-10) Leukocytosis ?D72.829 - Elevated white blood cell count, unspecified (ICD-10) Neck pain ?M54.2 - Cervicalgia (ICD-10) Degenerative disc disease Cervical radiculopathy ?M54.12 - Radiculopathy, cervical region (ICD-10) Cervical stenosis of spinal canal ?M48.02 - Spinal stenosis, cervical region (ICD-10) Obesity ?E66.9 - Obesity, unspecified (ICD-10) Low back pain ?M54.50 - Low back pain, unspecified (ICD-10) Depression ?F32.A - Depression, unspecified (ICD-10) Anxiety ?F41.9 - Anxiety disorder, unspecified (ICD-10) Diabetes 1.5, managed as type 2 ?E13.9 - Other specified diabetes mellitus without complications (ICD-10) Surgical History (Updated 03/29/25 @ 16:22 by Saul Nobles MD) History of radiofrequency ablation (RFA) of nerve of lumbar spine ?Z98.890 - Other specified postprocedural states (ICD-10) History of radiofrequency ablation (RFA) of nerve of cervical spine ?Z98.890 - Other specified postprocedural states (ICD-10) S/P epidural steroid injection ?Z92.241 - Personal history of systemic steroid therapy (ICD-10) History of tonsillectomy and adenoidectomy ?Z90.89 - Acquired absence of other organs (ICD-10) History of colonoscopy ?Z98.890 - Other specified postprocedural states (ICD-10) History of esophagogastroduodenoscopy (EGD) ?Z98.890 - Other specified postprocedural states (ICD-10) History of incision and drainage ?Z98.890 - Other specified postprocedural states (ICD-10) H/O local excision of skin lesion ?Z98.890 - Other specified postprocedural states (ICD-10) H/O nasal septoplasty ?Z98.890 - Other specified postprocedural states (ICD-10) History of facial surgery ?Z98.890 - Other specified postprocedural states (ICD-10) History of cholecystectomy ?Z90.49 - Acquired absence of other specified parts of digestive tract (ICD-10) History of hysterectomy ?Z90.710 - Acquired absence of both cervix and uterus (ICD-10) Hx of tonsillectomy ?Z90.89 - Acquired absence of other organs (ICD-10) Hx of heart artery stent ?Z95.5 - Presence of coronary angioplasty implant and graft (ICD-10) Family History (Updated 10/19/24 @ 10:28 by Tiff Camilo NP) Other Family history of cancer Family history of diabetes mellitus Family history of heart disease Family history of hypertension Family history of myocardial infarction Family history of stroke Social History (Updated 10/19/24 @ 10:20 by Tiff Camilo NP) Within the past year, how often did you have a drink containing alcohol: never Score interpretation: A score less than 3 is consistent with normal alcohol consumption. Smoking status: Current every day smoker What tobacco products do you use: cigarettes Packs per day: 1 Years smoked: 40 Smoking pack-years: 40.00 Non-prescribed substance use: cannabis (any form) Highest level of school completed/degree received: high school graduate Little interest or pleasure in doing things: not at all Feeling down, depressed, or hopeless: not at all Exam Narrative Exam Narrative: Vital signs and Nursing Notes reviewed: Patient has an elevated temperature at 99, she is tachycardic with a pulse of 116, blood pressure is normal at 135/79 she is not hypoxic with pulse ox of 96% on room air General: Awake, alert, oriented, nontoxic but uncomfortable appearing female, no respiratory distress HEENT: Normocephalic atraumatic, mucous membranes are moist and pink, eyes are clear, normal conjunctiva, vision is grossly intact, rior or posterior cervical lymphadenopathy Chest: Lungs are clear to auscultation with good air entry, there is no wheezing rhonchi or rales appreciated no accessory muscle use, patient is speaking in complete sentences-no chest wall tenderness to palpation CVS: Regular rate and rhythm S1-S2, no murmurs rubs or gallops, pulses are brisk and equal bilaterally ABD: Soft, nondistended, mildly tender in the left lower quadrant with voluntary guarding, no peritoneal signs, bowel sounds are mildly hypoactive Extremities: Moving all extremities, no lower extremity tenderness or swelling noted, negative Homans' sign, pulses are brisk and equal bilaterally Skin: Normal in appearance without rash,pallor, petechiae or purpura Neuro: No focal deficits Constitutional Vital Signs, click to edit/add: Last Vital Signs Temp 99.0 F 05/22/25 18:53 Pulse 80 05/22/25 22:35 Resp 14 05/22/25 22:35 BP 120/74 05/22/25 22:35 Pulse Ox 95 05/22/25 22:35 O2 Del Method Room Air 05/22/25 22:35 Course Vital Signs Vital signs: Vital Signs Temperature 99.0 F 05/22/25 18:53 Pulse Rate 116 H 05/22/25 18:53 Respiratory Rate 18 05/22/25 18:53 Blood Pressure 135/79 05/22/25 18:53 Pulse Oximetry 96 05/22/25 18:53 Oxygen Delivery Method Room Air 05/22/25 18:53 Temperature 99.0 F 05/22/25 18:53 Pulse Rate 80 05/22/25 22:35 Respiratory Rate 14 05/22/25 22:35 Blood Pressure 120/74 05/22/25 22:35 Pulse Oximetry 95 05/22/25 22:35 Oxygen Delivery Method Room Air 05/22/25 22:35 MDM - Abdominal Pain MDM Narrative Medical decision making narrative: This 55-year-old female with a history of diverticulitis presents for evaluation of left lower quad abdominal pain for the past 3 days. She denies fever but her temperature was elevated at triage. She does not have any reproducible tenderness. She states that she has been having severe nausea without vomiting and her stools have been loose. She has not had any bloody diarrhea. She does appear uncomfortable. An IV was placed and she was medicated with IV fluids, Zofran and morphine. Routine labs are reviewed. Her white count is elevated at 17.9 with an elevated hemoglobin of 19.9. Urine is negative for infection. Electrolytes and liver function tests are normal with the elevated glucose at 173. Lactic acid is elevated at 2.3. CT scan of the abdomen pelvis shows acute sigmoid diverticulitis. She was given additional IV dose of morphine and Zofran. She had an allergic reaction with hives to the Cipro and the Cipro was discontinued and she was given Unasyn 3 g instead. She feels comfortable being discharged home at this time. She will be discharged home with a prescription for Augmentin, Zofran and Percocet with recommendation for close follow-up with her family physician and return to the emergency department for worsening symptoms or any concerns. Lab Data Labs: Lab Results 05/22/25 05/22/25 Range/Units 19:00 19:42 WBC 17.9 H (4.0-11.0) 10^3/uL RBC 6.51 H (4.20-5.40) 10^6/uL Hgb 19.9 H (12.0-16.0) g/dL Hct 57.5 H (36.0-48.0) % MCV 88.3 (81.0-99.0) fL MCH 30.6 (26.7-34.0) pg MCHC 34.6 (29.9-35.2) g/dL RDW 15.1 H (11.0-15.0) % Plt Count 231 (150-450) 10^3/uL MPV 9.1 L (9.5-13.5) fL Neut % (Auto) 73.9 (43.0-75.0) % Lymph % (Auto) 20.7 (20.5-60.0) % [place] % (Auto) 4.0 (1.7-12.0) % Eos % (Auto) 0.7 L (0.9-7.0) % Baso % (Auto) 0.4 (0.2-2.0) % Neut # (Auto) 13.2 H (1.4-6.5) 10^3/uL Lymph # (Auto) 3.7 (1.2-3.8) 10^3/uL [place] # (Auto) 0.7 (0.3-0.8) 10^3/uL Eos # (Auto) 0.1 (0.0-0.7) 10^3/uL Baso # (Auto) 0.1 (0.0-0.1) 10^3/uL Abs Immat Gran (auto) 0.05 H (0.00-0.03) 10^3/uL Imm/Tot Granulo (auto) 0.3 (0.0-0.5) % Sodium 136 (136-145) mmol/L Potassium 4.2 (3.5-5.1) mmol/L Chloride 102 (98-107) mmol/L Carbon Dioxide 24.5 (21.0-32.0) mmol/L Anion Gap 13.7 BUN 10.0 (7.0-18.0) mg/dL Creatinine 0.93 (0.55-1.02) mg/dL Est GFR ( Amer) >60 (>=60 mL/min/1.73m^2) Est GFR (Non-Af Amer) >60 (>=60 mL/min/1.73m^2) BUN/Creatinine Ratio 10.8 Glucose 173 H (74-106) mg/dL Lactate 2.3 H* (0.4-2.0) mmol/L Calcium 9.0 (8.5-10.1) mg/dL Total Bilirubin 0.6 (0.2-1.0) mg/dL AST 10 L (15-37) U/L ALT 11 L (14-59) U/L Alkaline Phosphatase 148 H (46-116) U/L Total Protein 7.2 (6.4-8.2) g/dL Albumin 3.4 (3.4-5.0) g/dL Globulin 3.8 g/dL Albumin/Globulin Ratio 0.9 Lipase 48.0 (16.0-77.0) U/L Urine Color Lt. yellow (YELLOW) Urine Clarity Clear (CLEAR) Urine pH 6.0 (5.0-9.0) Ur Specific [place] <=1.005 A (1.005-1.025) Urine Protein Negative (NEG/TRACE) mg/dL Urine Glucose (UA) Negative (NEGATIVE) mg/dL Urine Ketones Negative (NEGATIVE) mg/dL Urine Occult Blood Small A (NEGATIVE) Urine Nitrite Negative (NEGATIVE) Urine Bilirubin Negative (NEGATIVE) Urine Urobilinogen 0.2 (0.2-1.0) EU/dL Ur Leukocyte Esterase Negative (NEGATIVE) Urine RBC 0-2 (0-2) #/HPF Urine WBC None seen (NONE SEEN) #/HPF Ur Squamous Epith Cells Rare (NONE/RARE) #/LPF Urine Crystals None seen (None Seen) #/HPF Urine Bacteria Trace A (NONE SEEN) #/HPF Urine Casts None seen (NONE SEEN) #/LPF Urine Mucus Trace A (NONE SEEN) Imaging Data CT scan - abdomen: Radiologist's impression: ITS Impressions Abdomen/Pelvis CT 05/22/25 19:14 IMPRESSION: Acute sigmoid diverticulitis. Impression dictated by: Vito Pina M.D. 05/22/2025 8:47 PM Dictation Location: [place] [address] Electronically authenticated by: [id number] Y Date: 05/22/2025 20:47 Discharge Plan Discharge Chief Complaint: Abdominal Pain Clinical Impression: Diverticulitis of sigmoid colon Prescriptions / Home Meds: No Action escitalopram oxalate 10 mg tablet 10 mg PO DAILY Ozempic 1 mg/dose (4 mg/3 mL) pen injector 0.5 mg subcut QWEEK gabapentin 300 mg capsule 300 mg PO TID aripiprazole 5 mg tablet 5 mg PO DAILY Print Language: Indonesian Referrals: Lacy Alberto NP [Primary Care Provider, Family Practice] - 1 week
[2025-05-22] MEDS: MORPHINE SULFATE 4 MG/ML VIAL IV ×2 (19:48→22:32)
[2025-05-22] MEDS: 0.9 % SODIUM CHLORIDE 1,000 ML 1000 ML IV (19:48)
[2025-05-22 20:12] LABS: Glucose Urine UA NEGATIVE (NEGATIVE)
[2025-05-22 20:18] LABS: Hematocrit 57.5 % (36.0-48.0); Hemoglobin 19.9 g/dL (12.0-16.0); Immature Granulocytes Abs Auto 0.05 10^3/uL (0.00-0.03); Immature Granulocytes Pct Auto 0.3 % (0.0-0.5); Lymphocytes Absolute Auto 3.7 10^3/uL (1.2-3.8); Mean Corpuscular HGB Conc 34.6 g/dL (29.9-35.2); Mean Corpuscular Hemoglobin 30.6 pg (26.7-34.0); Mean Corpuscular Volume 88.3 fL (81.0-99.0); Platelet Count 231 10^3/uL (150-450); Red Blood Count 6.51 10^6/uL (4.20-5.40); White Blood Count 17.9 10^3/uL (4.0-11.0)
[2025-05-22] MEDS: METRONIDAZOLE/SODIUM CHLORIDE 500 MG/100 ML PREMIX 100 MG IV (20:30)
[2025-05-22 20:38] LABS: Alanine Aminotransferase 11 U/L (14-59); Albumin Globulin Ratio 0.9; Albumin Level 3.4 g/dL (3.4-5.0); Alkaline Phosphatase 148 U/L (46-116); Anion Gap 13.7; Aspartate Amino Transferase 10 U/L (15-37); Blood Urea Nitrogen 10.0 mg/dL (7.0-18.0); Calcium 9.0 mg/dL (8.5-10.1); Carbon Dioxide 24.5 mmol/L (21.0-32.0); Chloride 102 mmol/L (98-107); Estimated GFR (African America >60 (>=60 mL/min/1.73m^2); Estimated GFR (Non-African Ame >60 (>=60 mL/min/1.73m^2); Globulin 3.8 g/dL; Glucose 173 mg/dL (74-106); Lipase 48.0 U/L (16.0-77.0); Potassium 4.2 mmol/L (3.5-5.1); Sodium 136 mmol/L (136-145); Total Protein 7.2 g/dL (6.4-8.2)
[2025-05-22 20:48] LABS: Cast Seen? NONE SEEN #/LPF (NONE SEEN); Crystals Seen? None Seen #/HPF (None Seen)
[2025-05-22] MEDS: CIPROFLOXACIN IN 5 % DEXTROSE 400 MG/200 ML PREMIX 200 MG IV (20:49)
[2025-05-22 20:57] LABS: Lactate/Lactic Acid 2.3 mmol/L (0.4-2.0)
[2025-05-22] MEDS: DIPHENHYDRAMINE HCL 50 MG/ML VIAL 25 MG IVP (21:09)
--- NOTE | 2025-05-22 21:12 | PC.NURSE ---
Pt received approximately 40 ml of the Cipro when it had to be stopped due to itchy hives at the IV site. informed. Received VO to give 25 mg of benadryl IV. The redness and itching is gone. Flagyl continues to infuse without problems.
[2025-05-22] MEDS: AMPICILLIN SODIUM/SULBACTAM NA 3 GM in 0.9 % SODIUM CHLORIDE 100 ML IV (21:54)
[2025-05-22 22:35] VITALS: BP 120/74; PULSE 80; O2SAT 95
[2025-05-22] MEDS: HYDROCODONE/ACET 5-325 MG TABLET PO (23:33)
[2025-05-22] MEDS: ONDANSETRON 4 MG RAPDIS TABLET SL (23:34)
--- NOTE | 2025-05-22 23:39 | PC.NURSE ---
Pt c/o burning epigastric pain. Regulation Supervisor back to re-check--pt states this has gone away completely. GI cocktail offered. Pt refused. States she feels fine and her and the are ready to go home.
[2025-05-22 23:40] VITALS: BP 132/89; PULSE 78; O2SAT 98
== END 2025-05-22 23:42 | disposition home or self-care (01) ==
PROVIDERS: Emergency Provider Emergency Medicine; PCP Nurse Practitioner
DX: K57.32 Diverticulitis of large intestine without perforation or abscess without bleeding (principal); Z86.0100 Personal history of colon polyps, unspecified; F17.210 Nicotine dependence, cigarettes, uncomplicated
CPT/HCPCS: 36415; 74177; 80053; 81001; 83605; 83690; 85025; 87040; 96365; 96367; 96375; 96376; 99285; J0295; J0744; J1200; J1836; J2270; J2405; Q0162; Q9967